=== PATIENT | male | born 1955 | race African-American/Black ===

== ENCOUNTER → 2017-05-01 13:35 | Outpatient (CLI) | payer OTHER, SELFPAY ==
[2017-05-01 13:38] LABS: Pathologist Comment May follow
[2017-05-01 14:03] LABS: RBC /Synovial Fluid 0.007 10^6/uL (0); Synovial Fld Mononuclear WBC % 69.3 %; Synovial Fld Polynuclear WBC # 0.119 10^3/ul; Synovial Fld Polynuclear WBC % 30.7 %
[2017-05-01 14:15] LABS: AUTO B FLUID DILUENT BKGD CT WBC <0.1 RBC <0.01 (W<.1,R<.01); CRYSTALS, BODY FLUID Other, see comment; Source- Body Fluid SYNOVIAL
[2017-05-01 14:16] LABS: Appearance /Synovial Fluid Sl hazy (CLEAR); Color / Synovial Fluid Yellow (Pale Yellow)
[2017-05-01 15:08] LABS: Lymph 23 %; Monocyte /Synovial Fluid 16 %; Neutrophil 12 % (0-25); Other Cell /Synovial Fluid 49 %
[2017-05-01 15:09] LABS: Source / Synovial Fluid LEFT KNEE
[2017-05-02 14:39] LABS: Pathologist Review Reviewed
== END ==
PROVIDERS: Visit Provider Internal Medicine Rheumatology
DX: M17.0 Bilateral primary osteoarthritis of knee (principal); M25.562 Pain in left knee; E11.9 Type 2 diabetes mellitus without complications; G47.33 Obstructive sleep apnea (adult) (pediatric); I71.02 Dissection of abdominal aorta; I50.9 Heart failure, unspecified; I27.20 Pulmonary hypertension, unspecified; N18.9 Chronic kidney disease, unspecified; I12.9 Hypertensive chronic kidney disease with stage 1 through stage 4 chronic kidney disease, or unspecified chronic kidney disease; Z86.69 Personal history of other diseases of the nervous system and sense organs; I83.009 Varicose veins of unspecified lower extremity with ulcer of unspecified site; I83.019 Varicose veins of right lower extremity with ulcer of unspecified site; E78.5 Hyperlipidemia, unspecified; J44.9 Chronic obstructive pulmonary disease, unspecified
CPT/HCPCS: 87070; 87075; 87205; 89050; 89051; 89060

== ENCOUNTER → 2017-05-08 08:53 | Outpatient (CLI) | payer OTHER, SELFPAY ==
[2017-05-08 09:32] VITALS: PULSE 83; PULSE 86; PULSE 87; PULSE 90; PULSE 91; PULSE 92; PULSE 96; PULSE 99; O2SAT 92; O2SAT 93; O2SAT 94
--- NOTE | 2017-05-08 14:40 | WT_ITS ---
PSN 6 Minute Walk Test - 6 Minute Walk Test 6 Minute Walk Test: 6 Minute Walk Test PSN:6-Minute Walk Test Start: 05/08/17 09: 26 Freq: Status: Active Protocol: RESP.6MINW Document 05/08/17 09:32 TOBI (Rec: 05/08/17 09:40 TOBI [id number]) 6 Minute Walk Test Date Performed 05/08/17 Time Performed 09:10 Height 5 ft 9 in Weight: 260 lb Weight in Pounds 260.[address]: Michael Daugherty Assistive device used: Crutches Pre-test Oxygen Delivery Method Room Air Pulse Ox (%) 93 Pulse Rate (60-100 beats/min) 83 Dyspnea Lilliana Scale (0-10) 0 Exertion Lillinaa Scale (6-20) 6 1st minute Oxygen Delivery Method Room Air Pulse Ox (%) 94 Pulse Rate (60-100 beats/min) 87 2nd minute Oxygen Delivery Method Room Air Pulse Ox (%) 94 Pulse Rate (60-100 beats/min) 90 3rd minute Oxygen Delivery Method Room Air Pulse Ox (%) 93 Pulse Rate (60-100 beats/min) 92 4th minute Oxygen Delivery Method Room Air Pulse Ox (%) 94 Pulse Rate (60-100 beats/min) 96 5th minute Oxygen Delivery Method Room Air Pulse Ox (%) 93 Pulse Rate (60-100 beats/min) 91 6th minute Oxygen Delivery Method Room Air Pulse Ox (%) 92 Pulse Rate (60-100 beats/min) 99 Dyspnea Lilliana Scale (0-10) 1 Exertion Lilliana Scale (6-20) 13 Post-test Oxygen Delivery Method Room Air Pulse Ox (%) 93 Pulse Rate (60-100 beats/min) 86 Full Laps Walked 4 Partial Lap, Number of Tiles Walked 74 Total Distance Walked (ft) 310 - Interpretation Interpretation: The patient ambulated 310 feet over the course of 6 minutes on room air with the use of crutches. Pretesting oxygen saturation was noted to be 93% on room air. With ambulation, the miryam oxygen saturation was 92%. There was no significant exertional oxygen desaturation noted. There was evidence of impaired walk distance. - Recommendations Recommendations: There is no indication for the use of supplemental oxygen at this time.
== END ==
PROVIDERS: Visit Provider Internal Medicine Critical Care Medicine
DX: J44.9 Chronic obstructive pulmonary disease, unspecified (principal); I27.20 Pulmonary hypertension, unspecified; G47.33 Obstructive sleep apnea (adult) (pediatric)
CPT/HCPCS: 94618

== ENCOUNTER → 2017-05-10 06:55 | Outpatient (CLI) | payer OTHER, SELFPAY ==
--- NOTE | 2017-05-10 13:51 | PFT ---
INTRODUCTION: The patient is a 62-year-old -Hung[place] male currently under the care of Dr. Daugherty that presents for pulmonary function testing secondary to a diagnosis of COPD. Respiratory therapy reports good patient effort reports no other concerns. Bronchodilators were used during testing. INTERPRETATION: Forced expiration spirometry demonstrates no evidence of a large airways obstructive ventilatory defect. There was no significant response to aerosolized bronchodilators, based upon strict ATS criteria. Spirograms are of good quality and plateau normally. The respiratory flow volume loop reveals decreased expiratory flow rates primarily at high lung volumes which can be seen in small airways obstruction. Body plethysmography was performed and reveals a decreased TLC to 4.38 L, 69% of predicted, indicative of a moderate restrictive ventilatory defect. Diffusing capacity by single breath CO is mildly reduced at 60% of predicted. When compared to previous pulmonary function studies dated April 2016, there has been little overall change. IMPRESSION: These pulmonary function studies demonstrate the presence of a moderate restrictive ventilatory defect with associated reduction in diffusing capacity, similar to previous PFTs. There is no evidence of an obstructive ventilatory impairment.
== END ==
PROVIDERS: Visit Provider Internal Medicine Critical Care Medicine
DX: J44.9 Chronic obstructive pulmonary disease, unspecified (principal); I27.20 Pulmonary hypertension, unspecified
CPT/HCPCS: 94060; 94726; 94729

== ENCOUNTER → 2017-06-26 15:55 | Outpatient (CLI) | payer OTHER, SELFPAY ==
[2017-06-26 20:51] LABS: RBC /Synovial Fluid 0.002 10^6/uL (0); Synovial Fld Mononuclear WBC % 48.6 %; Synovial Fld Polynuclear WBC # 0.132 10^3/ul; Synovial Fld Polynuclear WBC % 51.4 %
[2017-06-26 23:12] LABS: AUTO B FLUID DILUENT BKGD CT WBC <0.1 RBC <0.01 (W<.1,R<.01); Neutrophil 2 % (0-25)
[2017-06-26 23:14] LABS: Appearance /Synovial Fluid Hazy (CLEAR); Color / Synovial Fluid Yellow (Pale Yellow); Source / Synovial Fluid LEFT KNEE; Viscosity / Synovial Fluid Mod. Viscous (HIGH)
[2017-06-26 23:15] LABS: Body Fluid QC Type(s) BF3Q,BF4Q; Other Cell /Synovial Fluid 98 %
[2017-06-26 23:23] LABS: CRYSTALS, BODY FLUID Other, see comment; Source- Body Fluid SYNOVIAL
[2017-06-27 10:04] LABS: Pathologist Comment Reviewed; Pathologist Review Reviewed
== END ==
PROVIDERS: PCP Family Medicine; Visit Provider Internal Medicine Rheumatology
DX: M17.0 Bilateral primary osteoarthritis of knee (principal); M25.562 Pain in left knee; E11.9 Type 2 diabetes mellitus without complications; G47.33 Obstructive sleep apnea (adult) (pediatric); I71.02 Dissection of abdominal aorta; I50.9 Heart failure, unspecified; N18.9 Chronic kidney disease, unspecified; Z86.69 Personal history of other diseases of the nervous system and sense organs; I83.009 Varicose veins of unspecified lower extremity with ulcer of unspecified site; I83.019 Varicose veins of right lower extremity with ulcer of unspecified site; E78.5 Hyperlipidemia, unspecified; J44.9 Chronic obstructive pulmonary disease, unspecified; I12.9 Hypertensive chronic kidney disease with stage 1 through stage 4 chronic kidney disease, or unspecified chronic kidney disease
CPT/HCPCS: 87070; 87075; 87205; 89050; 89051; 89060

== ENCOUNTER → 2017-08-09 15:11 | Outpatient (CLI) | payer OTHER, SELFPAY ==
[2017-08-09 15:14] LABS: Pathologist Comment May follow
[2017-08-09 18:33] LABS: RBC /Synovial Fluid 0.012 10^6/uL (0); Synovial Fld Mononuclear WBC % 43.4 %; Synovial Fld Polynuclear WBC % 56.6 %
[2017-08-09 22:19] LABS: Neutrophil 34 % (0-25)
[2017-08-09 22:20] LABS: AUTO B FLUID DILUENT BKGD CT WBC <0.1 RBC <0.01 (W<.1,R<.01)
[2017-08-09 22:21] LABS: Appearance /Synovial Fluid Hazy (CLEAR); Color / Synovial Fluid Pink (Pale Yellow); Source / Synovial Fluid LT KNEE; Viscosity / Synovial Fluid Mod. Viscous (HIGH)
[2017-08-09 22:22] LABS: Body Fluid QC Type(s) BF1Q,BF2Q; Lymph 5 %; Monocyte /Synovial Fluid 49 %
[2017-08-09 22:23] LABS: Other Cell /Synovial Fluid 12 %
[2017-08-09 23:09] LABS: Source- Body Fluid SYNOVIAL
[2017-08-10 14:22] LABS: Pathologist Review Reviewed
== END ==
PROVIDERS: PCP Family Medicine; Visit Provider Internal Medicine Rheumatology
DX: M17.0 Bilateral primary osteoarthritis of knee (principal); M25.562 Pain in left knee; G47.33 Obstructive sleep apnea (adult) (pediatric); I71.02 Dissection of abdominal aorta; I27.20 Pulmonary hypertension, unspecified; Z86.69 Personal history of other diseases of the nervous system and sense organs; I83.009 Varicose veins of unspecified lower extremity with ulcer of unspecified site; I83.019 Varicose veins of right lower extremity with ulcer of unspecified site; E78.5 Hyperlipidemia, unspecified; J44.9 Chronic obstructive pulmonary disease, unspecified; E11.22 Type 2 diabetes mellitus with diabetic chronic kidney disease; I13.0 Hypertensive heart and chronic kidney disease with heart failure and stage 1 through stage 4 chronic kidney disease, or unspecified chronic kidney disease; N18.9 Chronic kidney disease, unspecified; I50.9 Heart failure, unspecified
CPT/HCPCS: 87070; 87075; 87205; 89050; 89051; 89060

== ENCOUNTER → 2017-08-19 10:49 | Outpatient (CLI) | payer OTHER, SELFPAY ==
--- NOTE | 2017-08-19 10:49 | DT_ITS ---
This patient was seen during an EMR downtime August 14, 2017 - August 21, 2017. This patient may have a combination of paper and electronic documentation or all paper documentation. All documentation is viewable within the e-chart portion of [facility] for each patient visit.
[2017-08-19 11:45] LABS: Hematocrit 38.9 % (40-54); Hemoglobin 12.2 g/dl (13.0-16.5); White Blood Count 4.8 K/mm3 (4.4-11.0)
[2017-08-19 11:46] LABS: Mean Corp Hgb Conc 31.4 g/gl (32-36); Mean Corpuscular Hgb 28.4 pg (27.0-32.0); Mean Corpuscular Volume 90.5 fL (80-94); Mean Platelet Vol. 9.5 fl (6.2-12.0); Platelet Count 225 K/mm3 (150-450); RBC Distribution Width CV 14.8 % (11.6-14.6); RBC Distribution Width SD 47.8 fl (35.1-43.9); Scan Indicated on CBC? Y/N NO
[2017-08-19 12:36] LABS: BUN 27 mg/dL (7-18); BUN/Creat Ratio 19.6 RATIO (10-20); Calcium,Total 8.6 mg/dL (8.5-10.1); Chloride 99 mmol/L (98-107); Creatinine, Serum 1.38 mg/dL (0.70-1.30); EST Glomerular Filtration Rate 55 mL/min (>60); Est Glom Filt Rate - Afr Amer 67 mL/min (>60); Glucose 114 mg/dL (74-106); Potassium 4.2 mmol/L (3.5-5.1); Sodium Level 138 mmol/L (136-145)
[2017-08-19 12:37] LABS: Anion Gap 6 (5-15)
== END ==
PROVIDERS: Nurse Practitioner Acute Care; PCP Family Medicine; Visit Provider Internal Medicine Critical Care Medicine
DX: R06.02 Shortness of breath (principal)
CPT/HCPCS: 36415; 80048; 85027

== ENCOUNTER → 2017-12-29 20:55 | Outpatient (CLI) | payer OTHER, SELFPAY ==
[2017-12-29 20:59] LABS: Pathologist Comment May follow
[2017-12-29 21:21] LABS: RBC /Synovial Fluid 0.006 10^6/uL (0); Synovial Fld Mononuclear WBC % 51.1 %; Synovial Fld Polynuclear WBC % 48.9 %
[2017-12-29 21:25] LABS: AUTO B FLUID DILUENT BKGD CT WBC <0.1 RBC <0.01 (W<.1,R<.01)
[2017-12-29 21:26] LABS: Appearance /Synovial Fluid Sl hazy (CLEAR); CRYSTALS, BODY FLUID See PATH REV; Color / Synovial Fluid Yellow (Pale Yellow); Source / Synovial Fluid LT KNEE; Source- Body Fluid SYNOVIAL
[2017-12-29 22:08] LABS: Lymph 34 %; Monocyte /Synovial Fluid 48 %; Neutrophil 18 % (0-25)
[2018-01-02 15:07] LABS: Pathologist Review Reviewed
== END ==
PROVIDERS: PCP Family Medicine; Referring Provider Internal Medicine Rheumatology; Visit Provider Internal Medicine Rheumatology
DX: M17.0 Bilateral primary osteoarthritis of knee (principal); M25.562 Pain in left knee
CPT/HCPCS: 87070; 87075; 87205; 89050; 89051; 89060

== ENCOUNTER → 2018-04-24 10:48 | Outpatient (CLI) | payer OTHER, SELFPAY ==
[2018-04-24 11:25] LABS: Anion Gap 7 (5-15); BUN 34 mg/dL (7-18); BUN/Creat Ratio 23.8 RATIO (10-20); Calcium,Total 8.8 mg/dL (8.5-10.1); Chloride 100 mmol/L (98-107); Creatinine, Serum 1.43 mg/dL (0.70-1.30); EST Glomerular Filtration Rate 53 mL/min (>60); Est Glom Filt Rate - Afr Amer 64 mL/min (>60); Glucose 141 mg/dL (74-106); Sodium Level 138 mmol/L (136-145)
== END ==
PROVIDERS: PCP Family Medicine; Visit Provider Internal Medicine Critical Care Medicine
DX: I27.20 Pulmonary hypertension, unspecified (principal)
CPT/HCPCS: 36415; 80048

== ENCOUNTER → 2018-04-27 12:34 | Outpatient (CLI) | payer OTHER, SELFPAY ==
[2018-04-24 09:51] VITALS: BMI 39.4
[2018-04-27 12:30] VITALS: PULSE 64; PULSE 83; PULSE 86; PULSE 87; PULSE 90; O2SAT 85; O2SAT 89; O2SAT 90; O2SAT 91; O2SAT 92
--- NOTE | 2018-04-27 14:30 | CPS ---
pt arrived on room air. sats were 85% placed him on 2l nc for walk. sats on 2l 89% so increased him to 3l nc and sats increased to 91%.
--- NOTE | 2018-04-30 07:21 | PCM.PSN.6M ---
PSN 6 Minute Walk Test - 6 Minute Walk Test 6 Minute Walk Test: 6 Minute Walk Test PSN:6-Minute Walk Test Start: 04/27/18 14:26 Freq: Status: Active Protocol: RESP.6MINW Document 04/27/18 12:30 EW (Rec: 04/27/18 14:32 EW [id number]) 6 Minute Walk Test Date Performed 04/27/18 Time Performed 12:30 Height 5 ft 9 in Weight: 263 lb Weight in Pounds 263.[address]: Michael Daugherty Assistive device used: Crutches Pre-test Oxygen Delivery Method Room Air Pulse Ox (%) 85 Pulse Rate (60-100 beats/min) 83 Dyspnea Lilliana Scale (0-10) 3 Exertion Lilliana Scale (6-20) 11 1st minute Oxygen Flow Rate (L/min) (L/min) 2 Oxygen Delivery Method Nasal Cannula Pulse Ox (%) 89 Pulse Rate (60-100 beats/min) 86 2nd minute Oxygen Flow Rate (L/min) (L/min) 3 Oxygen Delivery Method Nasal Cannula Pulse Ox (%) 89 3rd minute Oxygen Flow Rate (L/min) (L/min) 3 Oxygen Delivery Method Nasal Cannula Pulse Ox (%) 90 Pulse Rate (60-100 beats/min) 90 4th minute Oxygen Flow Rate (L/min) (L/min) 3 Oxygen Delivery Method Nasal Cannula Pulse Ox (%) 91 Pulse Rate (60-100 beats/min) 86 5th minute Oxygen Flow Rate (L/min) (L/min) 3 Oxygen Delivery Method Nasal Cannula Pulse Ox (%) 92 Pulse Rate (60-100 beats/min) 64 Number of Rests Taken 1 Reported Symptoms Increased Work of Breathing 6th minute Oxygen Flow Rate (L/min) (L/min) 3 Oxygen Delivery Method Nasal Cannula Pulse Ox (%) 90 Pulse Rate (60-100 beats/min) 86 Post-test Oxygen Flow Rate (L/min) (L/min) 3 Oxygen Delivery Method Nasal Cannula Pulse Ox (%) 92 Pulse Rate (60-100 beats/min) 87 Dyspnea Lilliana Scale (0-10) 3 Exertion Lilliana Scale (6-20) 16 Full Laps Walked 2 Partial Lap, Number of Tiles Walked 0 Total Distance Walked (ft) 118 04/27/18 14:30 Cardiopulmonary Services by Tavia Castro pt arrived on room air. sats were 85% placed him on 2l nc for walk. sats on 2l 89% so increased him to 3l nc and sats increased to 91%. Initialized on 04/27/18 14:30 - END OF NOTE - Interpretation Interpretation: The patient ambulated 118 feet over the course of 6 minutes beginning on supplemental oxygen without the use of assistive devices. Pretesting oxygen saturation on room air was noted to be 85%. The patient was subsequently placed on supplemental oxygen. He required 3 L/min to increase his oxygen saturation to 91%. With ambulation on 3 L/min, the miryam oxygen saturation was 89%. This testing indicates the presence of impaired walk distance coupled with significant resting and exertional oxygen need. - Recommendations Recommendations: 3 L/min of supplemental oxygen should be utilized both at rest and with exertion.
--- NOTE | 2018-04-30 07:25 | WT_ITS ---
PSN 6 Minute Walk Test - 6 Minute Walk Test 6 Minute Walk Test: 6 Minute Walk Test PSN:6-Minute Walk Test Start: 04/27/18 14:26 Freq: Status: Active Protocol: RESP.6MINW Document 04/27/18 12:30 EW (Rec: 04/27/18 14:32 EW [id number]) 6 Minute Walk Test Date Performed 04/27/18 Time Performed 12:30 Height 5 ft 9 in Weight: 263 lb Weight in Pounds 263.[address]: Michael Daugherty Assistive device used: Crutches Pre-test Oxygen Delivery Method Room Air Pulse Ox (%) 85 Pulse Rate (60-100 beats/min) 83 Dyspnea Lilliana Scale (0-10) 3 Exertion Lilliana Scale (6-20) 11 1st minute Oxygen Flow Rate (L/min) (L/min) 2 Oxygen Delivery Method Nasal Cannula Pulse Ox (%) 89 Pulse Rate (60-100 beats/min) 86 2nd minute Oxygen Flow Rate (L/min) (L/min) 3 Oxygen Delivery Method Nasal Cannula Pulse Ox (%) 89 3rd minute Oxygen Flow Rate (L/min) (L/min) 3 Oxygen Delivery Method Nasal Cannula Pulse Ox (%) 90 Pulse Rate (60-100 beats/min) 90 4th minute Oxygen Flow Rate (L/min) (L/min) 3 Oxygen Delivery Method Nasal Cannula Pulse Ox (%) 91 Pulse Rate (60-100 beats/min) 86 5th minute Oxygen Flow Rate (L/min) (L/min) 3 Oxygen Delivery Method Nasal Cannula Pulse Ox (%) 92 Pulse Rate (60-100 beats/min) 64 Number of Rests Taken 1 Reported Symptoms Increased Work of Breathing 6th minute Oxygen Flow Rate (L/min) (L/min) 3 Oxygen Delivery Method Nasal Cannula Pulse Ox (%) 90 Pulse Rate (60-100 beats/min) 86 Post-test Oxygen Flow Rate (L/min) (L/min) 3 Oxygen Delivery Method Nasal Cannula Pulse Ox (%) 92 Pulse Rate (60-100 beats/min) 87 Dyspnea Lilliana Scale (0-10) 3 Exertion Lilliana Scale (6-20) 16 Full Laps Walked 2 Partial Lap, Number of Tiles Walked 0 Total Distance Walked (ft) 118 04/27/18 14:30 Cardiopulmonary Services by Tavia Castro pt arrived on room air. sats were 85% placed him on 2l nc for walk. sats on 2l 89% so increased him to 3l nc and sats increased to 91%. Initialized on 04/27/18 14:30 - END OF NOTE - Interpretation Interpretation: The patient ambulated 118 feet over the course of 6 minutes beginning on s upplemental oxygen without the use of assistive devices. Pretesting oxygen saturation on room air was noted to be 85%. The patient was subsequently placed on supplemental oxygen. He required 3 L/min to increase his oxygen saturation to 91%. With ambulation on 3 L/min, the miryam oxygen saturation was 89%. This testing indicates the presence of impaired walk distance coupled with significant resting and exertional oxygen need. - Recommendations Recommendations: 3 L/min of supplemental oxygen should be utilized both at rest and with exertion.
== END ==
PROVIDERS: PCP Family Medicine; Referring Provider Internal Medicine Critical Care Medicine; Visit Provider Internal Medicine Critical Care Medicine
DX: I27.20 Pulmonary hypertension, unspecified (principal); I50.30 Unspecified diastolic (congestive) heart failure
CPT/HCPCS: 94618

== ENCOUNTER → 2018-06-12 14:31 | Outpatient (CLI) | payer OTHER, SELFPAY ==
[2018-05-30 10:43] VITALS: BMI 41.6
[2018-06-06 14:41] VITALS: BMI 41.6
--- NOTE | 2018-06-12 14:36 | ECHOCS_ITS ---
Reason For Study: DYSPNEA Procedure This was a 2D Doppler, Color Flow transthoracic echocardiogram. Contrast injection was performed. The exam was of poor technical quality due to pt unable to lay in LLD position- scanned supine at 45 degrees. Exam performed in department. Left Ventricle Normal LV size. Moderate concentric left ventricular hypertrophy. Left ventricular systolic function is normal. The estimated ejection fraction is 65 %. Stage 2 diastolic dysfunction. No regional wall motion abnormalities noted. Right Ventricle Normal RV size. Normal systolic function. Atria The left atrium is mildly enlarged. The right atrium is mildly enlarged. Mitral Valve There is mild mitral annular calcification. Tricuspid Valve Normal tricuspid valve. Mild (1+) tricuspid valve insufficiency. Pulmonary artery systolic pressure is 35 mmHg. Mild pulmonary hypertension. Aortic Valve The aortic valve is not well visualized. Mild focal aortic valve calcification. Pulmonic Valve Normal pulmonic valve. Great Vessels Mildly dilated aortic root. The pulmonary artery is normal size. Normal inferior vena cava. Pericardium/Pleural No pericardial effusion. Medication 20 gauge I.V. with prn adaptor inserted into right arm. Diluted definity 4ml given slow IV push to enhance endocardial definition. MMode/2D Measurements & Calculations LVIDd: 4.9 cm IVSd: 1.4 cm LVOT diam: 2.1 cm LVIDs: 3.5 cm LVPWd: 1.4 cm FS: 29.7 % LVOT area: 3.6 cm2 Ao root diam: 4.1 cm LAV(MOD-bp): 62.0 ml LVAd ap4: 35.1 cm2 LAV(MOD-bp) Indexed: 26.4 ml/m2 EDV(MOD-sp4): 114.4 ml LAV(MOD-sp2): 66.6 ml EDV(sp4-el): 118.8 ml LAV(MOD-sp4): 56.9 ml LVAs ap4: 17.8 cm2 ESV(MOD-sp4): 38.5 ml ESV(sp4-el): 37.5 ml EF(MOD-sp4): 66.3 % EF(sp4-el): 68.5 % SV(MOD-sp4): 75.8 ml SV(sp4-el): 81.3 ml LA A4 area: 20.8 cm2 LA dimension(2D): 4.3 cm RA A4 area: 24.5 cm2 Time Measurements MV dec time: 0.31 sec Doppler Measurements & Calculations MV E max jb: 100.2 cm/sec Lat Peak E' Jb: 5.9 cm/sec Med Peak E' Jb: 5.4 cm/sec MV A max jb: 115.7 cm/sec E/E' lat: 17.1 E/E' med: 18.7 MV E/A: 0.87 MV V2 max: 116.7 cm/sec Ao V2 max: 224.5 cm/sec LV V1 max: 128.8 cm/sec MV max P.4 mmHg Ao max P.2 mmHg LV V1 max P.6 mmHg MV V2 mean: 78.4 cm/sec Ao V2 mean: 159.6 cm/sec LV V1 mean P.6 mmHg MV mean P.7 mmHg Ao mean P.3 mmHg LV V1 mean: 90.4 cm/sec MV V2 VTI: 35.3 cm Ao V2 VTI: 44.6 cm LV V1 VTI: 26.9 cm MVA(VTI): 2.7 cm2 LACI(I,D): 2.2 cm2 LACI(V,D): 2.0 cm2 SV(LVOT): 96.1 ml PA V2 max: 109.8 cm/sec TR max jb: 275.4 cm/sec PA V2 mean: 50.7 cm/sec TR max P.0 mmHg PA V2 VTI: 16.7 cm MV P1/2t-pr_phl: 85.2 msec Interpretation Summary Normal LV size. Moderate concentric left ventricular hypertrophy. Left ventricular systolic function is normal. The estimated ejection fraction is 65 %. Stage 2 diastolic dysfunction. Mild (1+) tricuspid valve insufficiency. Mild pulmonary hypertension. Contrast injection was performed. Ordering Physician: Ric Riley Referring Physician: Alex Pedersen Performed By: Divine Ozuna, SIRISHA, RVT
== END ==
PROVIDERS: Family Provider Internal Medicine; PCP Internal Medicine; Referring Provider Internal Medicine Cardiovascular Disease; Visit Provider Internal Medicine Cardiovascular Disease
DX: I50.32 Chronic diastolic (congestive) heart failure (principal)
CPT/HCPCS: 93306; Q9957; A4216; C8929

== ENCOUNTER → 2018-08-02 10:46 | Outpatient (CLI) | payer OTHER, SELFPAY ==
[2018-07-04 14:35] VITALS: BMI 41.6
[2018-08-02 11:21] LABS: Absolute Lymphocyte Count 0.51 X10^3/ul (0.83-4.51); Absolute Neutrophil Count 5.7 X10^3/uL (2.0-7.7); Hematocrit 40.5 % (40-54); Hemoglobin 12.3 g/dl (13.0-16.5); Lymphocyte # 0.51 X10^3/ul (4.0); Lymphocyte % 8.1 % (19-41); Mean Corp Hgb Conc 30.4 g/gl (32-36); Mean Corpuscular Hgb 27.5 pg (27.0-32.0); Mean Corpuscular Volume 90.6 fL (80-94); Mean Platelet Vol. 9.5 fl (6.2-12.0); Monocyte# 0.14 X10^3/uL; Monocyte% 2.2 % (0-10); Neutrophil # 5.66 X10^3/uL (2.7-7.7); Neutrophil % 89.5 % (47-70); Platelet Count 221 K/mm3 (150-450); RBC Distribution Width CV 15.1 % (11.6-14.6); RBC Distribution Width SD 49.1 fl (35.1-43.9); Red Blood Count 4.47 M/mm3 (4.6-6.2); White Blood Count 6.3 K/mm3 (4.4-11.0)
[2018-08-02 11:22] LABS: Differential Indicated SCAN CRITERIA MET; POSITIVE COUNT NO; POSITIVE DIFFERENTIAL YES; POSITIVE MORPHOLOGY NO
[2018-08-02 11:33] LABS: Cholesterol 208 mg/dL (200); High Density Lipoprotein 56 mg/dL; Triglycerides 81 mg/dL; Very Low Density Lipoprotein 16 mg/dL (5-40)
[2018-08-02 11:41] LABS: Hemoglobin A1c 6.7 % (4.2-6.3)
[2018-08-02 14:24] LABS: Microalbumin,Random Urine 47.1 mg/L (NO RANGE EST.); Microalbumin:Creatinine Ratio 91.6 mg/g CRE (<30 mg/g CRE)
== END ==
PROVIDERS: Family Provider Internal Medicine; PCP Internal Medicine; Referring Provider Internal Medicine; Visit Provider Internal Medicine
DX: E11.9 Type 2 diabetes mellitus without complications (principal); E78.5 Hyperlipidemia, unspecified; D64.9 Anemia, unspecified; I10 Essential (primary) hypertension
CPT/HCPCS: 36415; 80061; 82043; 82570; 83036; 85025

== ENCOUNTER → 2018-10-23 09:48 | Outpatient (CLI) | payer OTHER, SELFPAY ==
[2018-10-08 14:07] VITALS: BMI 41.6
[2018-10-23 10:33] LABS: Hemoglobin A1c 6.8 % (4.2-6.3)
[2018-10-23 10:37] LABS: Anion Gap 6 (5-15); BUN 27 mg/dL (7-18); Chloride 102 mmol/L (98-107); EST Glomerular Filtration Rate 50 mL/min (>60); Est Glom Filt Rate - Afr Amer 61 mL/min (>60); Glucose 131 mg/dL (74-106); PSA,Total - Annual Screen 0.98 ng/mL (0.00-4.00); Potassium 4.3 mmol/L (3.5-5.1); Sodium Level 141 mmol/L (136-145); Thyroid Stim Hormone (TSH) 1.27 uIU/mL (0.358-3.74)
[2018-10-23 10:42] LABS: Vitamin D,25 Hydroxy 9.6 ng/mL (29.95-100.01)
[2018-10-24 11:09] LABS: Microalbumin:Creatinine Ratio 138.1 mg/g CRE (<30 mg/g CRE)
[2018-10-26 08:08] LABS: Testosterone, Free 2.48 ng/dL (5.00-21.00)
[2018-10-26 12:36] LABS: Testosterone, % Free 2.53 % (1.50-4.20); Testosterone, Total 98 ng/dL (264-916)
== END ==
PROVIDERS: Family Provider Internal Medicine; PCP Internal Medicine; Referring Provider Internal Medicine; Visit Provider Internal Medicine
DX: E55.9 Vitamin D deficiency, unspecified (principal); E34.9 Endocrine disorder, unspecified; N40.0 Benign prostatic hyperplasia without lower urinary tract symptoms; E11.9 Type 2 diabetes mellitus without complications; Z13.29 Encounter for screening for other suspected endocrine disorder
CPT/HCPCS: 36415; 80048; 82043; 82306; 82570; 83036; 84153; 84402; 84403; 84443; G0103

== ENCOUNTER → 2018-11-08 14:57 | Outpatient (CLI) | payer OTHER, SELFPAY ==
[2018-11-08 13:50] VITALS: BMI 41.6
[2018-11-08 15:54] LABS: Absolute Neutrophil Count 8.3 X10^3/uL (2.0-7.7); Basophil# 0.02 X10^3/uL; Basophil% 0.2 % (0-1); Hematocrit 34.8 % (40-54); Hemoglobin 10.7 g/dL (13.0-16.5); Lymphocyte % 5.9 % (19-41); Mean Corp Hgb Conc 30.7 g/dL (32-36); Mean Corpuscular Hgb 28.3 pg (27.0-32.0); Mean Corpuscular Volume 92.1 fL (80-94); Mean Platelet Vol. 9.8 fl (6.2-12.0); Monocyte# 0.98 X10^3/uL; Monocyte% 9.7 % (0-10); NRBC Flagged by Analyzer 0 % (0-5); Neutrophil # 8.31 X10^3/uL (2.7-7.7); Neutrophil % 81.9 % (47-70); POSITIVE DIFFERENTIAL YES; Platelet Count 219 K/mm3 (150-450); RBC Distribution Width CV 14.5 % (11.6-14.6); RBC Distribution Width SD 49.2 fl (35.1-43.9); Red Blood Count 3.78 M/mm3 (4.6-6.2); White Blood Count 10.1 K/mm3 (4.4-11.0)
[2018-11-08 16:00] LABS: Differential Indicated SCAN CRITERIA MET
[2018-11-08 16:04] LABS: Anion Gap 5 (5-15); BUN 35 mg/dL (7-18); BUN/Creat Ratio 23.2 RATIO (10-20); Calcium,Total 9.2 mg/dL (8.5-10.1); Chloride 100 mmol/L (98-107); Creatinine, Serum 1.51 mg/dL (0.70-1.30); EST Glomerular Filtration Rate 50 mL/min (>60); Est Glom Filt Rate - Afr Amer 60 mL/min (>60); Glucose 152 mg/dL (74-106); Potassium 4.8 mmol/L (3.5-5.1); Sodium Level 138 mmol/L (136-145)
[2018-11-08 16:14] LABS: BNP,B-Type NATRIURETIC PEPTIDE 57.2 pg/mL (0-100)
[2018-11-08 16:29] LABS: Differential Comment SCANNED
== END ==
PROVIDERS: Family Provider Internal Medicine; PCP Internal Medicine; Referring Provider Internal Medicine; Visit Provider Internal Medicine
DX: R06.02 Shortness of breath (principal); I95.9 Hypotension, unspecified
CPT/HCPCS: 36415; 80048; 83880; 85025

== ENCOUNTER → 2018-11-08 15:49 | Outpatient (CLI) | payer OTHER, SELFPAY ==
[2018-11-08 13:50] VITALS: BMI 41.6
[2018-11-08 16:05] VITALS: BP 152/82; PULSE 80; RESP 22; TEMP 36.6; O2SAT 91; BMI 45.6
[2018-11-08] MEDS: Furosemide 40 MG/4 ML Vial IV (16:23)
== END ==
PROVIDERS: Family Provider Internal Medicine; PCP Internal Medicine; Visit Provider Internal Medicine
DX: I50.9 Heart failure, unspecified (principal); R06.02 Shortness of breath
CPT/HCPCS: 96374; A4216; J1940

== ENCOUNTER 2018-11-08 20:18 | Inpatient (IN) | payer OTHER, SELFPAY ==
[2018-11-08 16:05] VITALS: BMI 45.6
[2018-11-08 20:20] VITALS: BP 147/81; PULSE 81; RESP 20; TEMP 36.6; O2SAT 91; BMI 39.9
--- NOTE | 2018-11-08 20:38 | CT_ITS ---
STUDY: CTA CHEST REASON FOR EXAM: Male, 63 years old. Shortness of breath and hypoxia. Known thoracic aortic aneurysm RADIATION DOSAGE (If Supplied By Facility): CTDIvol = ( 22.17 ) mGy, DLP = ( 552.91 ) mGycm TECHNIQUE: The examination was performed with the intravenous administration of 100ML IV Isovue 370. Post-processing of the angiographic images was performed, with multiplanar reformation and 3D reconstruction. Individualized dose optimization techniques were used for this CT. COMPARISON: 09/20/2015 FINDINGS: Normal enhancement of the main pulmonary artery and right and left pulmonary arteries. Normal enhancement of the bilateral peripheral pulmonary arteries. There is no demonstrated pulmonary embolism. Unchanged descending thoracic aortic aneurysm and dissection with only small opacified lumen. Stable since 2015. Stable mild cardiomegaly Stable small mediastinal lymph nodes Normal hilar regions. Normal visualized trachea and bronchi. The lungs are well expanded. Patchy infiltrate seen in the upper lobes suggesting infection versus edema. Mild diffuse pulmonary vascular congestion Normal pleura. Normal chest wall structures. There are degenerative changes of thoracic spine. Normal visualized upper abdomen. CT/CTA Chest W/WO Contrast IMPRESSION: No evidence of pulmonary embolism. 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 Stable dating back to 2015. Patchy airspace disease/infiltrate in the upper lobes. Could represent infection or edema. Stable cardiomegaly Electronically Signed: Andrew Alejo DO at 21:51 EDT Tel , Service support ,
--- NOTE | 2018-11-08 22:10 | ED.DCSUM_ITS ---
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 Ric Riley. He denies history of PE or DVT. He does have history of borderline diabetes and hypertension. He also has history of pulmonary hypertension, obstructive sleep apnea and right-sided heart failure. He denies fever, chills or night sweats. He denies rhinorrhea, earache or sore throat. He denies cough. He does report shortness of breath at rest and significant shortness of breath with minimal activity. He is on continuous oxygen and states he normally needs 1.5 L. He is presently on 5 L by nasal cannula with a saturation of 88%. Prior similar symptoms: No Recent Illness/Hospitalization: No - Past Medical History (1) Chronic diastolic (congestive) heart failure Status: Chronic (2) Essential (primary) hypertension Status: Chronic (3) Hyperlipidemia Status: Chronic (4) ADELAIDE (obstructive sleep apnea) Status: Chronic (5) Osteoarthritis Status: Chronic (6) Secondary pulmonary arterial hypertension Status: Chronic (7) Stage 2 moderate COPD by GOLD classification Status: Chronic (8) Type 2 diabetes mellitus Status: Chronic Past Medical History - Allergies and Home Meds Allergies/Adverse Reactions: Allergies lisinopril Allergy (Severe, Verified 10/08/18 14:06) Angioedema latanoprost [From Xalatan] Adverse Reaction (Unknown, Verified 11/08/18 20:25) Other precipitation in eyes Sulfa (Sulfonamide Antibiotics) Adverse Reaction (Verified 10/08/18 14:06) Other chapstick Allergy (Uncoded 11/08/18 20:25) swelling Primary Care Physician: Alex Pedersen MD [Primary Care Provider] - Prior records reviewed: Yes Surgical History: no surgical history Lives: Spouse/ Significant Other Smoking Status: Former smoker Alcohol: None Drugs: None - Family History Maternal Family History: Family History (Last Reviewed 07/29/19 @ 14:06 by Laine Jeornimo) Father Cancer Mother Asthma Family History: Reports: No pertinent history Paternal Family History: Family History (Last Reviewed 10/08/18 @ 14:06 by Laine Jeronimo) Father Cancer Mother Asthma Family History: Reports: No pertinent history Physical Exam Vital Signs/Narrative: Vital Signs Temp Pulse Resp BP Pulse Ox 11/08/18 20:20 97.9 F 81 20 H 147/81 H 91 Inital Vital Signs reviewed: Yes General: Well nourished, Well developed, Obese, Acute Distress Head: Normocephalic, Atraumatic Eyes: Perrl, EOMI. Negative for: Pale conjunctiva, Scleral icterus ENT: Moist mucous membranes, No rhinorrhea, TM's clear Neck: Supple, Nontender, No lymphadenopathy, No JVD, - - Voice is hoarse. There is no stridor. Cardiovascular: Regular rate, Regular rhythm, No murmurs, Normal S1, Normal S2, - - Tones are distant Respiratory: CTA bilaterally, Decreased Air Movement, - - Is breathing much more rapidly than 20 times. On my examination his respiratory rate was 26.. Negative for: No distress Abdomen: Soft, Nontender, Nondistended, Normal bowel sounds Rectal: Deferred Back: Nontender Extremities: Nontender, Edema Skin: Normal color, No rash, No Trauma. Negative for: Cyanosis, Diaphoresis, Jaundice Neurological: Alert, Oriented x3, Cranial nerves II-XII grossly intact, Normal Strength, Normal Sensation Psychological: Normal affect, Normal Mood Diagnostic/Tx/Re-eval Impressions Chest CTA 11/08/18 20:38 IMPRESSION: No evidence of pulmonary embolism. 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 Stable dating back to 2016. Patchy airspace disease/infiltrate in the upper lobes. Could represent infection or edema. Stable cardiomegaly Electronically Signed: Andrew Alejo DO at 21:51 EDT Tel , Service support , 11/08/18 20:38 CTA Chest W/WO Contrast [CT] Stat Blood gas reveals pH 7.26, PCO2 of 73.5, PaO2 of 63 with a base excess of +6 and bicarb 33.4. O2 sat is 87%. He is present on 4 L. Hospitalist was paged for admission. BiPAP was ordered. - Medical Decision Making BNP was 60. With abrupt onset of shortness of breath with hypotension concern for pulmonary embolus. Patient's creatinine obtained earlier today through his primary care physician's office was 1.5. He received a fluid bolus prior to CTA. CTA revealed bilateral upper lobe glass ground appearance indicative of infiltrate versus CHF. Since BNP is 60 CHF is ruled out. Will treat with IV antibiotics. He was administered Rocephin and azithromycin because of concern for tendon issues with quinolones. Since he is not tachycardic and white count is not elevated and he does not have a fever he does not meet criteria for sepsis and reason why blood cultures and lactate was not obtained. Vision has acute respiratory failure with hypercapnia and hypoxia BiPAP was ordered. Hospitalist was paged. Admit to PCU stepdown versus ICU. He informed that he has an appointment to see Dr. Daugherty tomorrow November 09. - Critical Care Time Critical care time (excluding procedures): 30-74 minutes - 33 minutes, Discussing w/Patient &/or Family/Grocery Checker, Discussing w/Consultants, Arranging Admission or Transfer ED Disposition - Plan for ED Patient: Disposition: Home or Assisted Living Diagnosis: Acute respiratory failure with hypoxia and hypercapnia, Bilateral pulmonary infiltrates on CXR, Stage 3 chronic kidney disease Referrals: Alex Pedersen MD [Primary Care Provider] -
[2018-11-08] MEDS: Ceftriaxone 1 GM/50 ML BAG IV (22:22)
[2018-11-08 22:40] LABS: Allen Test POS; Base Excess 7 mmol/L (-2 to +2); Bicarbonate 33.8 mmol/L (22-26); Blood Gas Specimen Type ART; O2 Delivery Device Nasal Can; PO2 61 mmHG (75-100); SITE L Radial; SO2 87 % (95-99); Time Given 2225; Total Carbon Dioxide 36 mmol/L; pCO2 71.7 mmHg (35-45); pH 7.28 (7.35-7.45)
--- NOTE | 2018-11-08 22:42 | HP.PCM_ITS ---
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: without intermediate use Diabetes mellitus complication status: with other specified complication Qualified Code(s): E11.69 - Type 2 diabetes mellitus with other specified complication (6) Chronic diastolic (congestive) heart failure Status: Chronic (7) Hyperlipidemia Status: Chronic Qualifiers: Hyperlipidemia type: unspecified Qualified Code(s): E78.5 - Hyperlipidemia, unspecified (8) Essential (primary) hypertension Status: Chronic (9) Secondary pulmonary arterial hypertension Status: Chronic (10) Stage 2 moderate COPD by GOLD classification Status: Chronic (11) ADELAIDE (obstructive sleep apnea) Status: Chronic (12) Morbid obesity Status: Chronic History of Present Illness Date of Admission: 11/08/18 Chief Complaint: Dyspnea The patient is a 63 y/o M w/ PMHx: Morbid Obesity, Former Tobacco use, Diabetes mellitus type II, ADELAIDE, HTN, HLD, CKD stage III, Known stable Chronic AAA, PVD, Chronic normocytic anemia, Hx Guillain [place] Syndrome, Chronic COPD w/ Chronic Chronic Hypoxic Respiratory Failure, Chronic Diastolic CHF who presents to the [facility] ED on 11/08/18 with history of suddenly progressively worsening dyspnea starting this past Monday with no specific cough although PCP note does note dry cough as well as postnasal drip with no specific fevers or chills, noted to be worse with any exertional effort. Patient notes general malaise and fatigue and has had low blood pressures with need for medication adjustments. Did discuss with and patient right lower extremity chronic wound care and he notes that last evaluation was by physician approximately 1 week prior and that dressing was due to be changed on day of ED presentation. Work-up in the ED included T 97.9, heart rate 81, BP 147/81, respiratory rate 20, 91% on 4 L nasal cannula, ABG with pH 7.28, bicarb 33.8, base excess 7, O2 saturation 87, PCO2 71.7, PO2 61 on 4 L nasal cannula, CBC with WBC 10.1, hemoglobin 10.7, platelet 219 with left shift, BMP with carbon dioxide 33, BUN/creatinine 35/1.51, glucose 152, BNP 60, CTPA with no evidence of pulmonary embolism with a stable radha cending thoracic aortic aneurysm dissection with only a small opacified lumen noted to have been stable since 2016, patchy airspace disease and infiltrate in the upper lobes, stable cardiomegaly. In the ED patient ministered normal saline, Rocephin, azithromycin. Past Medical History Past Medical History (Chronic Problems): Chronic Problems (Last Reviewed 10/08/18 @ 14:06 by Laine Jeronimo) Stage 3 chronic kidney disease (Chronic) Morbid obesity (Chronic) Lower extremity weakness (Chronic) Type 2 diabetes mellitus (Chronic) Osteoarthritis (Chronic) Chronic diastolic (congestive) heart failure (Chronic) Hyperlipidemia (Chronic) Essential (primary) hypertension (Chronic) Secondary pulmonary arterial hypertension (Chronic) Stage 2 moderate COPD by GOLD classification (Chronic) Shortness of breath (Chronic) ADELAIDE (obstructive sleep apnea) (Chronic) Medical History: Medical History (Last Reviewed 10/08/18 @ 14:06 by Laine Jeronimo) Ulcer of right lower extremity (Chronic) L97.919 Chronic diastolic (congestive) heart failure (Chronic) I50.32 Hyperlipidemia (Chronic) E78.5 Essential (primary) hypertension (Chronic) I10 Secondary pulmonary arterial hypertension (Chronic) I27.21 Stage 2 moderate COPD by GOLD classification (Chronic) J44.9 Shortness of breath (Chronic) R06.02 ADELAIDE (obstructive sleep apnea) (Chronic) G47.33 Chronic kidney disease, stage 3 N18.3 Chronic venous insufficiency I87.2 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 Normocytic anemia D64.9 Obesity E66.9 Type 2 diabetes mellitus E11.9 Chronic cutaneous venous stasis ulcer (Resolved) I83.009 RLE Extremity Tobacco use Z72.0 Chronic venous stasis dermatitis (Inactive) I83.10 Allergies lisinopril Allergy (Severe, Verified 10/08/18 14:06) Angioedema latanoprost [From Xalatan] Adverse Reaction (Unknown, Verified 11/08/18 20:25) Other precipitation in eyes Sulfa (Sulfonamide Antibiotics) Adverse Reaction (Verified 10/08/18 14:06) Other chapstick Allergy (Uncoded 11/08/18 20:25) swelling Home Medications: Ambulatory Orders Medication Instructions Recorded hydrALAZINE [Apresoline] 50 mg PO TID #90 tab 09/20/15 tramadol 50 mg tablet 50 mg PO TID PRN tab 10/24/17 brimonidine 0.2 % eye drops 1 drp OPHTHALMIC BID ml 05/04/18 dorzolamide 2 %-timolol 0.5 % (PF) 1 drp OPHTHALMIC BID 05/04/18 eye drops ipratropium-albuterol 0.5 mg-3 3 ml INHALATION Q6H PRN ml 05/04/18 mg(2.5 mg base)/3 mL nebulization soln losartan 100 mg tablet 100 mg PO DAILY 05/04/18 omeprazole 20 mg capsule,delayed 20 mg PO DAILY 05/04/18 release labetalol 200 mg tablet 200 mg PO TID tab 05/30/18 tamsulosin 0.4 mg capsule 0.4 mg PO DAILY 05/30/18 furosemide 20 mg tablet 20 mg PO DAILY #30 tab 06/06/18 furosemide 40 mg tablet 40 mg PO BID #180 tab 07/04/18 aspirin 325 mg tablet 325 mg PO DAILY 09/06/18 latanoprost 0.005 % eye drops 1 drp OPHTHALMIC QPM 09/06/18 fluticasone fur. 100 mcg-umeclid 1 inh INHALATION DAILY #60 ea 11/08/18 62.5 mcg-vilant 25 mcg inhalat.powder sitagliptin 50 mg tablet 50 mg PO DAILY #30 tab 11/08/18 Surgical History: no surgical history Psychiatric History: No pertinent psych hx Lives: Spouse/ Significant Other Smoking Status: Former smoker Alcohol: None Drugs: None - *Family History Maternal Family History: Family History (Last Reviewed 10/08/18 @ 14:06 by Laine Jeronimo) Father Cancer Mother Asthma History Items: Asthma Paternal Family History: Family History (Last Reviewed 10/08/18 @ 14:06 by Laine Jeronimo) Father Cancer Mother Asthma History Items: Cancer Review of Systems Constitutional: Reports: Malaise, Weakness, Fatigue. Denies: Chills, Fever, Weight Change HEENT: Reports: Post Nasal Drip - Noted per PCP recently at visit.. Denies: Head Aches, Sinus Congestion, Sinus Drainage Cardiovascular: Denies: Chest Pain, Palpitations Respiratory: Reports: Cough - Noted per PCP at recent visit., Shortness of Lilian th, Shortness of breath at rest, Shortness of breath upon exertion. Denies: Sputum production Gastrointestinal: Denies: Abdominal Pain, Nausea, Vomiting Genitourinary: Denies: Dysuria Musculoskeletal: Denies: Joint Pain, Joint Tenderness Skin: Reports: Skin Changes, Wounds. Denies: Rash Neurological: Denies: Numbness, Tingling, Focal weakness Psychiatric: Denies: Anxiety, Depression, Homicidal Ideations, Suicidal Ideations Hematologic/ Lymphatic: Reports: Anemia. Denies: Easy Bruising, Easy Bleeding VTE Information - Inpt Only VTE Present on Admission: No VTE Mechan Device Prophylaxis: SCD's VTE Pharm Prophylaxis ordered?: Yes Patient Problems: Active and Suspected Problems (Last Reviewed 10/08/18 @ 14:06 by Laine Jeronimo) Acute respiratory failure with hypoxia and hypercapnia (Acute) Bilateral pulmonary infiltrates on CXR (Acute) Subjective: Seated upright in the bed, fatigued appearance, BiPAP in place, mildly lethargic, ill-appearing. Objective: Physical Examination: General: awakens to discussions, intermittently alert, lethargic but oriented x 3, remains cooperative, seated upright in the ED bed, BiPAP in place, respiratory distress has lessened but ill-appearing. Skin: normal color, turgor, no icterus, cyanosis except notable right lower extremity suspected infected chronic venous stasis ulcer, foul-smelling, yellow and green discharge. HEENT: AT/NC, EOMI, PERRLA, only dry MM, no carotid bruits, no marked JVD noted however difficult assessment with thickened neck/large habitus with concurrently BiPAP in place. Lungs: Diminished breath sounds, greater bilateral bases, mildly coarse, rhonchorous, BiPAP in place, no wheezing, improved appearance since initial presentation, less in respiratory rate, lessened accessory muscle usage. Heart: Regular rate and rhythm; no gallop, rub audible. Abdomen: soft, morbidly obese, NTTP, ND, normal BS, no HSM;, habitus makes examination difficult. Extremities: no cyanosis, clubbing, BL LE ankle to distal cross edema, although lessened right lower extremity given recent dressing, removed, see skin. Neurological: awakens to discussions, intermittently alert, lethargic but oriented x 3, cognitive function improving but suspect not baseline intact; pupils equally reactive to light and accomodation; cranial nerves II-XII grossly normal, moving all 4 extremities, no focal deficits, strength severely globally decreased secondary to acute presentation. Psychiatric: affect appears fatigued, ill-appearing, no acute evidence of depressive or anxiety feelings. - Physical Exam Vital Signs Temp Pulse Resp BP Pulse Ox 97.9 F 81 20 H 147/81 H 91 11/08/18 20:20 11/08/18 20:20 11/08/18 20:20 11/08/18 20:20 11/08/18 20:20 Oxygen Flow Rate (L/min) 4 Oxygen Delivery Method Nasal Cannula Weight: 270 lb Body Mass Index (BMI) 39.9 Intake and Output for Last 24 Hours 11/06/18 11/07/18 11/08/18 23:59 23:59 23:59 Intake Total 0 / 0 Balance 0 / 0 Laboratory Tests Past 24 Hrs 11/08/18 22:31 Specimen Type ART Sample Site L Radial pH 7.28 L Bicarbonate Actual 33.8 H POC Total CO2 36 Base Excess 7 H O2 Saturation 87 L ABG pCO2 71.7 H* ABG pO2 61 L Frederick Test POS O2 Delivery Device Nasal Can Liter Flow 4.0 Blood Gas Notified Whom ED MD Blood Gas Notified Time 5 Assessment/Plan All Active Problems (Last Reviewed 10/08/18 @ 14:06 by Laine Jeronimo) Acute respiratory failure with hypoxia and hypercapnia (Acute) Bilateral pulmonary infiltrates on CXR (Acute) Ulcer of right lower extremity (Acute) Chronic cutaneous venous stasis ulcer (Resolved) The patient is a 63 y/o M w/ PMHx: Morbid Obesity, Former Tobacco use, Diabetes mellitus type II, ADELAIDE, HTN, HLD, CKD stage III, PVD, Chronic normocytic anemia, Hx Guillain [place] Syndrome, Chronic COPD w/ Chronic Chronic Hypoxic Respiratory Failure, Known stable Chronic AAA, Chronic Diastolic CHF who presents to the [facility] ED on 11/08/18 with history of suddenly progressively worsening dyspnea starting this past Monday with no specific cough although PCP note does note dry cough as well as postnasal drip with no specific fevers or chills, noted to be worse with any exertional effort. 1. Acute Hypoxic and Hypercarbic Respiratory Failure secondary to Community Acquired Pneumonia, complicated by underlying Chronic COPD: Work-up in the ED included T 97.9, heart rate 81, BP 147/81, respiratory rate 20, 91% on 4 L nasal cannula, ABG with pH 7.28, bicarb 33.8, base excess 7, O2 saturation 87, PCO2 71.7, PO2 61 on 4 L nasal cannula, CBC with WBC 10.1, hemoglobin 10.7, platelet 219 with left shift, BMP with carbon dioxide 33, BUN/creatinine 35/1.51, glucose 152 CTPA with no evidence of pulmonary embolism with a stable descending thoracic aortic aneurysm dissection with only a small opacified lumen noted to have been stable since 2016, patchy airspace disease and infiltrate in the upper lobes, stable cardiomegaly. 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 Bld cx x 2 obtained in the ED. 2. Concern for Acute on Chronic RLE Infected Stasis Wound: Per discussion with patient and spouse last evaluation per physician approximately 1 week prior, last dressing change 3 days prior, foul older and notable yellow-green discharge. Broadened ABX as noted above even these findings currently, will maintain on IV Vanc and Zosyn with requested Wound Cx, Wound MRSA PCR, plan repeat CBC in AM, continue affected extremity elevation above heart when seated and in bed, Wound RN consulted. 3. Hypertension: Continue home regimen including Lasix, hydralazine, labetalol, losartan with hold parameters, PRN hydralazine. 4. Hyperlipidemia: Not on statin therapy per current list, awaiting update. 5. Chronic Diastolic CHF: No overt evidence of overload, outpatient BMP 57.2, will maintain on aspirin, Lasix, hydralazine, labetalol, losartan with hold parameters given patient reported episodes of hypotension. MIS wraps. 6. Chronic normocytic anemia: Admission hemoglobin 10.7, prior noted 10-12, stable, trend. 7. Chronic Kidney Disease Stage III: Admission BUN/Cr 35/1.51, baseline renal function 1.4-1.5, repeat BMP in AM. 8. Morbid Obesity: Weight loss and lifestyle changes encouraged, nutrition consulted. 9. Diabetes mellitus type II: Hold oral home regimen, ADA diet, accu checks w/ ISS. 10. AAA, History of: No surgical intervention, stable per report. 11. ADELAIDE: BIPAP utilization as noted #1. 12. GERD: PPI. 13. DVT Prophylaxis: SCDs, lovenox. Code Visit Inpatient E&M: 95270 Init Hosp L3
[2018-11-08 22:45] VITALS: PULSE 72; RESP 12; RESP 25; O2SAT 92
[2018-11-08 23:10] VITALS: PULSE 79; O2SAT 91
[2018-11-08 23:54] VITALS: PULSE 76; RESP 12; RESP 24; O2SAT 97
[2018-11-09] VITALS (40 sets, daily range): BP systolic 99–170; BP diastolic 56–98; PULSE 72–107; RESP 12–30; TEMP 36.4–37.7; O2SAT 88–98; BMI 44.8
--- NOTE | 2018-11-09 00:30 | NURSING ---
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
[2018-11-09] MEDS: 0.9% Normal Saline 1,000 ML 125 ML IV (01:09)
[2018-11-09 01:39] LABS: Magnesium 2.1 mg/dL (1.6-2.6)
--- NOTE | 2018-11-09 01:48 | PCM.RX.CS ---
Consult Pharmacy has been consulted to manage selected antiobiotic: Vancomycin Type of Consult: New start Suspected Infection: Pneumonia Microbiology: Microbiology 11/09/18 00:50 Urine, Clean Catch Streptococcus pneumoniae Antigen (M - Final 11/09/18 00:50 Urine, Clean Catch Legionella Antigen - Final Weight used for dosin.7 kg Estimated Creatinine Clearance: 68 Goal Trough: 15-20 mcg/mL Pharmacy Plan for Drug Dosing: Pharmacy Service will continue to monitor and adjust dosing as required. Medications Vancomycin HCl 2,000 mg/ (Sodium Chloride) 540 mls @ 250 mls/hr IV X1 ONE Stop: 11/09/18 02:39 Last Admin: 11/09/18 01:08 Dose: 250 mls/hr Documented by: Vancomycin HCl (Vancomycin) 1,000 mg in 200 mls @ 200 mls/hr IV Q12H AMBROSE Follow-Up Labs: Trough Vancomycin Labs to be done on [date and time ordered]: 11/10 @ 1230
[2018-11-09 03:01] LABS: Probe Check PASS; Staph aureus DNA By PCR POSITIVE (Negative)
[2018-11-09 03:02] LABS: M R Staph aureus DNA By PCR POSITIVE (Negative); Specimen Processing Control PASS
--- NOTE | 2018-11-09 04:56 | CPS ---
PCO2 critical value read to Dr. Valladares in ED
--- NOTE | 2018-11-09 05:31 | CPS ---
critical results read back to dr fisher
[2018-11-09] MEDS: Labetalol 200 MG Tablet PO ×3 (05:53→20:56)
[2018-11-09] MEDS: hydrALAZINE 50 MG Tablet PO ×3 (05:53→20:55)
--- NOTE | 2018-11-09 05:55 | RAD_ITS ---
STUDY: X-RAY CHEST REASON FOR EXAM: Male, 63 years old. Dyspnea/shortness of breath. TECHNIQUE: Single AP portable view of the chest. COMPARISON: Comparison is made with prior examination dated September 20, 2015. FINDINGS: EKG electrodes are seen. There is evidence of vascular congestion and CHF. There is no demonstrated pleural abnormality. There is mild cardiac enlargement. Normal mediastinum and ekta. Normal visualized pulmonary arteries. There is atherosclerotic tortuosity and ectasia of the aortic arch and descending thoracic aorta. There are diffuse degenerative changes of the visualized thoracic spine. There is degenerative osteoarthritis of the bilateral shoulders. There is no demonstrated abnormality of the visualized soft tissue structures of the upper abdomen. RAD/Chest 1 View (Portable) IMPRESSION: Cardiomegaly and CHF. Electronically Signed: Michael Gaytan, at 8:53 EDT , Service support ,
[2018-11-09] MEDS: Dorzolamide HCL/Timolol 10 ml Bottle 1 DRP OPHTHALMIC ×2 (06:07→20:54)
[2018-11-09] MEDS: BRIMONIDINE 0.2% 5ML BOTTLE 1 DRP OPHTHALMIC ×2 (06:14→21:04)
[2018-11-09 06:18] LABS: Absolute Lymphocyte Count 0.65 X10^3/uL (0.83-4.51); Absolute Neutrophil Count 6.6 X10^3/uL (2.0-7.7); Basophil# 0.02 X10^3/uL; Basophil% 0.2 % (0-1); Eosinophil# 0.17 X10^3/uL; Hematocrit 32.5 % (40-54); Hemoglobin 9.9 g/dL (13.0-16.5); Lymphocyte # 0.65 X10^3/ul (4.0); Lymphocyte % 7.8 % (19-41); Mean Corp Hgb Conc 30.5 g/dL (32-36); Mean Corpuscular Hgb 28.4 pg (27.0-32.0); Mean Corpuscular Volume 93.1 fL (80-94); Mean Platelet Vol. 9.4 fl (6.2-12.0); Monocyte# 0.91 X10^3/uL; Monocyte% 10.9 % (0-10); NRBC Flagged by Analyzer 0 % (0-5); Neutrophil # 6.59 X10^3/uL (2.7-7.7); Neutrophil % 78.9 % (47-70); Platelet Count 212 K/mm3 (150-450); RBC Distribution Width CV 14.6 % (11.6-14.6); RBC Distribution Width SD 50.1 fl (35.1-43.9); Red Blood Count 3.49 M/mm3 (4.6-6.2); White Blood Count 8.4 K/mm3 (4.4-11.0)
--- NOTE | 2018-11-09 06:28 | CON.PCM_ITS ---
Reason for Consult Date of Consultation: 11/09/18 Reason for Consultation: Respiratory failure History of Present Illness: The patient is a 63-year-old male, with a history as outlined below, who presented to the emergency department on November 08 with progressive dyspnea over the course of the last week. The patient has a known history of stage II COPD, obstructive sleep apnea, pulmonary hypertension and heart failure with preserved ejection fraction. He is followed by Dr. Daugherty in the pulmonary medicine clinic. In fact, he was actually scheduled to be seen today. The patient is currently being maintained on a triple therapy inhaler regimen with Trelegy Ellipta and as needed albuterol. The patient does have chronic hypoxemic respiratory failure, having last completed a 6-minute walk test in April 2018, which demonstrated the need for 3 L/min of supplemental oxygen with exert ion. At his baseline, the patient reports infrequent use of his rescue inhaler. Unfortunately, the patient readily admits that he has not been utilizing his supplemental oxygen on a routine basis. He states that he only utilizes it intermittently. The patient is prescribed nocturnal CPAP therapy on an outpatient basis with a pressure support of 12 cm of water. On presentation to the emergency department, the patient was noted to be afebrile and hemodynamically stable. He was requiring 4 L/min of supplemental oxygen initially to maintain an oxygen saturation of 91%. Initial laboratory evaluation revealed no evidence of a leukocytosis. Arterial blood gas obtained on 4 L/min revealed a pH of 7.28 with a corresponding PCO2 of 72 and PO2 of 61. Chemistry profile was notable for an elevated serum bicarbonate 35. Troponin was negative x2. MRSA screen was positive. CTA chest was obtained and revealed no evidence for PE. However, there was upper lobe predominant groundglass osborn es, right greater than left. The patient was placed on BiPAP therapy and antibiotics were initiated. The patient was subsequently transferred to the medical intensive care unit for further management. Overnight, the patient was initially maintained on BiPAP 10/4, which was later changed to a pressure support of 14/6 after a repeat ABG revealed a pH of 7.25 with a PCO2 of 83 and PO2 of 69. Despite this, the patient is mentating appropriately. He denied the presence of a cough, chest tightness or wheezing. Past Medical History Past Medical History (Chronic Problems): Chronic Problems (Last Reviewed 10/08/18 @ 14:06 by Laine Jeronimo) Stage 3 chronic kidney disease (Chronic) Morbid obesity (Chronic) Lower extremity weakness (Chronic) Type 2 diabetes mellitus (Chronic) Osteoarthritis (Chronic) Chronic diastolic (congestive) heart failure (Chronic) Hyperlipidemia (Chronic) Essential (primary) hypertension (Chronic) Secondary pulmonary arterial hypertension (Chronic) Stage 2 moderate COPD by GOLD classification (Chronic) Shortness of breath (Chronic) ADELAIDE (obstructive sleep apnea) (Chronic) Medical History: Medical History (Last Reviewed 10/08/18 @ 14:06 by Laine Jeronimo) Ulcer of right lower extremity (Acute) L97.919 Chronic diastolic (congestive) heart failure (Chronic) I50.32 Hyperlipidemia (Chronic) E78.5 Essential (primary) hypertension (Chronic) I10 Secondary pulmonary arterial hypertension (Chronic) I27.21 Stage 2 moderate COPD by GOLD classification (Chronic) J44.9 Shortness of breath (Chronic) R06.02 A[place]IDE (obstructive sleep apnea) (Chronic) G47.33 Chronic kidney disease, stage 3 N18.3 Chronic venous insufficiency I87.2 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 Normocytic anemia D64.9 Obesity E66.9 Type 2 diabetes mellitus E11.9 Chronic cutaneous venous stasis ulcer (Resolved) I83.009 RLE Extremity Tobacco use Z72.0 Chronic venous stasis dermatitis (Inactive) I83.10 Allergies lisinopril Allergy (Severe, Verified 10/08/18 14:06) Angioedema latanoprost [From Xalatan] Adverse Reaction (Unknown, Verified 11/08/18 20:25) Other precipitation in eyes Sulfa (Sulfonamide Antibiotics) Adverse Reaction (Verified 10/08/18 14:06) Other chapstick Allergy (Uncoded 11/08/18 20:25) swelling Home Medications: Ambulatory Orders Medication Instructions Recorded hydrALAZINE [Apresoline] 50 mg PO TID #90 tab 09/20/15 tramadol 50 mg tablet 50 mg PO TID PRN tab 10/24/17 brimonidine 0.2 % eye drops 1 drp OPHTHALMIC BID ml 05/04/18 dorzolamide 2 %-timolol 0.5 % (PF) 1 drp OPHTHALMIC BID 05/04/18 eye drops ipratropium-albuterol 0.5 mg-3 3 ml INHALATION Q6H PRN ml 05/04/18 mg(2.5 mg base)/3 mL nebulization soln losartan 100 mg tablet 100 mg PO DAILY 05/04/18 omeprazole 20 mg capsule,delayed 20 mg PO DAILY 05/04/18 release labetalol 200 mg tablet 200 mg PO TID tab 05/30/18 tamsulosin 0.4 mg capsule 0.4 mg PO DAILY 05/30/18 furosemide 20 mg tablet 20 mg PO DAILY #30 tab 06/06/18 furosemide 40 mg tablet 40 mg PO BID #180 tab 07/04/18 aspirin 325 mg tablet 325 mg PO DAILY 09/06/18 latanoprost 0.005 % eye drops 1 drp OPHTHALMIC QPM 09/06/18 fluticasone fur. 100 mcg-umeclid 1 inh INHALATION DAILY #60 ea 11/08/18 62.5 mcg-vilant 25 mcg inhalat.powder sitagliptin 50 mg tablet 50 mg PO DAILY #30 tab 11/08/18 Surgical History: no surgical history Psychiatric History: No pertinent psych hx Lives: Spouse/ Significant Other Smoking Status: Former smoker Tobacco Use: Cigarettes Alcohol: None Drugs: None - *Family History Maternal Family History: Family History (Last Reviewed 10/08/18 @ 14:06 by Laine Jeronimo) Father Cancer Mother Asthma History Items: Asthma Paternal Family History: Family History (Last Reviewed 10/08/18 @ 14:06 by Laine Jeronimo) Father Cancer Mother Asthma History Items: Cancer Review of Systems Constitutional: Reports: Fatigue. Denies: Chills, Fever Eyes: Denies: Blurred vision, Double vision HEENT: Denies: Head Aches, Sinus Congestion, Sinus Drainage Cardiovascular: Denies: Chest Pain, Palpitations Respiratory: Reports: Shortness of Breath. Denies: Cough, Sputum production, Wheezing Gastrointestinal: Denies: Abdominal Pain, Nausea, Vomiting Genitourinary: Denies: Dysuria Musculoskeletal: Denies: Joint Pain, Joint Tenderness Skin: Reports: Wounds - Chronic Neurological: Denies: Numbness, Tingling, Focal weakness Psychiatric: Denies: Anxiety, Depression, Homicidal Ideations, Suicidal Ideations Hematologic/ Lymphatic: Reports: Anemia Patient Problems: Active and Suspected Problems (Last Reviewed 10/08/18 @ 14:06 by Laine Jeronimo) Acute respiratory failure with hypoxia and hypercapnia (Acute) Bilateral pulmonary infiltrates on CXR (Acute) Objective: The patient's most recent lab work, culture data and imaging studies have all been personally reviewed. Surface echocardiogram from June 2018 revealed moderate concentric LVH with an ejection fraction of 65% and stage II diastolic dysfunction. There was evidence of mild biatrial enlargement along with a pulmonary artery systolic pressure which was estimated to be 35 mmHg. - Physical Exam General: Alert, Cooperative, No apparent distress, - - BiPAP currently in place. HEENT: Atraumatic, PERRLA, Normocephalic Oral: No Gingival or Mucosal Lesions/ Ulcerations Neck: Supple, No Nodes, Trachea Midline Lungs: No rhonchi, No wheeze, No rales, Diminished Cardiovascular: Regular rate, Regular Rhythm, Normal S1, Normal S2 Abdomen: Bowel Sounds Present, Soft, Non Tender, Obese Extremities: No clubbing, No cyanosis, Edema Skin: - - Chronic lower extremity wound Musculoskeletal: No Muscle Wasting Lymphatic: No Cervical, Supraclavicular, or Inguinal Adenopathy Neurological: Cranial nerves II-XII grossly intact, Neuro grossly intact Psych/Mental Status: Normal Affect, Appropriate Vital Signs Temp Pulse Resp BP Pulse Ox 97.6 F L 77 22 H 139/74 H 98 11/09/18 04:00 11/09/18 06:00 11/09/18 06:00 11/09/18 06:00 11/09/18 06:00 Oxygen Flow Rate (L/min) 4 Oxygen Delivery Method Bi-pap Weight: 303 lb 9.224 oz Body Mass Index (BMI) 44.8 Intake and Output for Last 24 Hours 11/07/18 11/08/18 11/09/18 23:59 23:59 23:59 Intake Total 50 / 50 1682.29 / 1682.29 Output Total 450 / 450 Balance 50 / 50 1232.29 / 1232.29 Microbiology Past 72 Hours 11/09/18 00:50 Streptococcus pneumoniae Antigen (M - Final Urine, Clean Catch 11/09/18 00:50 Legionella Antigen - Final Urine, Clean Catch Laboratory Tests Past 24 Hrs 11/08/18 11/09/18 11/09/18 22:31 00:55 01:00 WBC RBC Hgb Hct MCV MCH MCHC RDW Std Deviation RDW Coeff of Johanna Plt Count MPV Immature Gran % (Auto) Neut % (Auto) Lymph % (Auto) Creek % (Auto) Eos % (Auto) Baso % (Auto) Absolute Neuts (auto) Absolute Lymphs (auto) Nucleated RBC % Specimen Type ART Sample Site L Radial pH 7.28 L Bicarbonate Actual 33.8 H POC Total CO2 36 Base Excess 7 H O2 Saturation 87 L ABG pCO2 71.7 H* ABG pO2 61 L Frederick Test POS O2 Delivery Device Nasal Can Liter Flow 4.0 Blood Gas Notified Whom ED Blood Gas Notified Time 2225 Sodium Potassium Chloride Carbon Dioxide Anion Gap BUN Creatinine Est GFR (MDRD) Af Amer Est GFR (MDRD) Non-Af BUN/Creatinine Ratio Glucose Calcium Magnesium 2.1 Troponin I < 0.015 S.aureus Protein A PCR POSITIVE H MRSA (PCR) POSITIVE H 11/09/18 11/09/18 11/09/18 03:11 06:00 06:00 WBC 8.4 RBC 3.49 L Hgb 9.9 L Hct 32.5 L MCV 93.1 MCH 28.4 MCHC 30.5 L RDW Std Deviation 50.1 H RDW Coeff of Johanna 14.6 Plt Count 212 MPV 9.4 Immature Gran % (Auto) 0.200 Neut % (Auto) 78.9 H Lymph % (Auto) 7.8 L Creek % (Auto) 10.9 H Eos % (Auto) 2.0 Baso % (Auto) 0.2 Absolute Neuts (auto) 6.6 Absolute Lymphs (auto) 0.65 L Nucleated RBC % 0 Specimen Type Sample Site pH Bicarbonate Actual POC Total CO2 Base Excess O2 Saturation ABG pCO2 ABG pO2 Frederick Test O2 Delivery Device Liter Flow Blood Gas Notified Whom Blood Gas Notified Time Sodium Pending Potassium Pending Chloride Pending Carbon Dioxide Pending Anion Gap Pending BUN Pending Creatinine Pending Est GFR (MDRD) Af Amer Pending Est GFR (MDRD) Non-Af Pending BUN/Creatinine Ratio Pending Glucose Pending Calcium Pending Magnesium Troponin I < 0.015 S.aureus Protein A PCR MRSA (PCR) 11/09/18 06:00 WBC RBC Hgb Hct MCV MCH MCHC RDW Std Deviation RDW Coeff of Johanna Plt Count MPV Immature Gran % (Auto) Neut % (Auto) Lymph % (Auto) Creek % (Auto) Eos % (Auto) Baso % (Auto) Absolute Neuts (auto) Absolute Lymphs (auto) Nucleated RBC % Specimen Type Sample Site pH Bicarbonate Actual POC Total CO2 Base Excess O2 Saturation ABG pCO2 ABG pO2 Frederick Test O2 Delivery Device Liter Flow Blood Gas Notified Whom Blood Gas Notified Time Sodium Potassium Chloride Carbon Dioxide Anion Gap BUN Creatinine Est GFR (MDRD) Af Amer Est GFR (MDRD) Non-Af BUN/Creatinine Ratio Glucose Calcium Magnesium Troponin I Pending S.aureus Protein A PCR MRSA (PCR) Clinical Impression(s) from Imaging Studies Chest CTA 11/08/18 20:38 IMPRESSION: No evidence of pulmonary embolism. 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 Stable dating back to 2015. Patchy airspace disease/infiltrate in the upper lobes. Could represent infection or edema. Stable cardiomegaly Electronically Signed: Andrew Alejo DO at 21:51 EDT Tel , Service support , Assessment/Plan Active and Suspected Problems (Last Reviewed 10/08/18 @ 14:06 by Laine Jeronimo) Acute respiratory failure with hypoxia and hypercapnia (Acute) Bilateral pulmonary infiltrates on CXR (Acute) RECOMMENDATIONS: 1. Continue broad-spectrum antimicrobial coverage, pending infectious work-up. 2. Increase IPAP pressure support to 18 cmH2O. 3. If patient is unable to tolerate BiPAP, transition to AVAPS with naps/nightly. 4. Encourage incentive spirometer use and mobilize patient as tolerated. 5. Wean supplemental oxygen as tolerated. 6. Obtain repeat surface echocardiogram. IMPRESSIONS: 1. Acute on chronic combined respiratory failure The patient is supposed to be utilizing 3 L/min of supplemental oxygen with exertion. However, he readily admits that he is not utilizing the supplemental O2 as prescribed. He did have upper lobe predominant groundglass changes on CT, which could be related to an underlying pulmonary infectious process. I do suspect that his presenting dyspnea is likely a consequence of his noncompliance with supplemental O2 coupled with potential infection. For now, the patient will remain on broad-spectrum antimicrobial therapy, pending infectious work-up. His IPAP pressure support will be increased to help support his minute ventilation requirements. If the patient does not tolerate the increased pressure support, he can be transitioned to AVAPS, which I would plan to continue with naps and nightly. Okay to continue bronchodilators. Wean supplemental oxygen as tolerated. Encourage incentive spirometer use and mobilize patient as tolerated. 2. Heart failure with preserved ejection fraction/pulmonary hypertension Recommend discontinuation of supplemental IV fluids. I would recommend obtaining a repeat echocardiogram, given the patient's noncompliance with ontiveros pplemental oxygen, to evaluate for the presence of worsening pulmonary hypertension or RV dysfunction. 3. Chronic COPD/obstructive sleep apnea The patient regularly follows with Dr. Daugherty on an outpatient basis. Recommend continuing bronchodilators as ordered. Nocturnal Pap therapy will be continued. 4. Hypertension/hyperlipidemia/anemia/chronic kidney disease/obesity/diabetes Complicates care, management, recovery and prognosis. Continue sliding scale insulin coverage. Physical therapy to work with the patient. Okay to continue home medications. This note was generated with [employer] dictation software. It may contain incorrect words, spelling, and punctuation that were not noted in checking the note before signing. Code Visit Inpatient E&M: 86570 Init Hosp L3
[2018-11-09 06:29] LABS: Anion Gap 2 (5-15); BUN 31 mg/dL (7-18); Calcium,Total 8.8 mg/dL (8.5-10.1); Chloride 99 mmol/L (98-107); Creatinine, Serum 1.29 mg/dL (0.70-1.30); EST Glomerular Filtration Rate 60 mL/min (>60); Est Glom Filt Rate - Afr Amer 72 mL/min (>60); Estimated Creatinine Clearance 57.85 ml/min; Glucose 105 mg/dL (74-106); Potassium 4.4 mmol/L (3.5-5.1); Sodium Level 136 mmol/L (136-145)
[2018-11-09 06:41] LABS: Allen Test POS; Blood Gas Specimen Type ART; O2 Delivery Device Bi Pap; SITE L RADIAL
[2018-11-09 06:42] LABS: EPAP 4; FI02 40; IPAP 10; Time Given 529; pH 7.25 (7.35-7.45)
[2018-11-09 06:44] LABS: Bicarbonate 36.6 mmol/L (22-26); PO2 69 mmHG (75-100); pCO2 82.6 mmHg (35-45)
[2018-11-09 06:45] LABS: Base Excess 9 mmol/L (-2 to +2); SO2 89 % (95-99); Total Carbon Dioxide 39 mmol/L
--- NOTE | 2018-11-09 06:49 | ECHOCS_ITS ---
Reason For Study: Dyspnea/SOB Procedure This was a 2D Doppler, Color Flow transthoracic echocardiogram. The study was technically difficult. Contrast injection was performed. The exam was of poor technical quality due to pt being scanned supine and upright.. Exam performed portable in ICU/CCU. Left Ventricle Based upon the 2D echocardiographic and contrast enhanced views there appears to be grossly normal left ventricular size, wall motion, and systolic function. The estimated ejection fraction is 65 %. Diastolic function is indeterminate. Right Ventricle Based upon the 2D echocardiographic and contrast enhanced views there appears to be grossly normal right ventricular size and systolic function. Atria The left atrium is mildly enlarged. Normal right atrium. No doppler evidence for ASD. Mitral Valve There is mild mitral annular calcification. Extension of the mitral annular calcification onto the posterior mitral valve leaflet. Trivial mitral valve insufficiency. Tricuspid Valve Normal tricuspid valve. Trivial tricuspid valve insufficiency. Right ventricular systolic pressure estimated to be 31 mmHg. Aortic Valve The aortic valve is not well visualized. Pulmonic Valve The pulmonic valve is not well visualized. Great Vessels Borderline enlarged aortic root. Pericardium/Pleural No pericardial effusion. Medication Diluted definity 4ml given slow IV push to enhance endocardial definition. MMode/2D Measurements & Calculations LVIDd: 4.8 cm IVSd: 1.3 cm LVOT diam: 2.1 cm LVIDs: 3.4 cm LVPWd: 1.2 cm FS: 29.7 % LVOT area: 3.6 cm2 Ao root diam: 3.8 cm LAV(MOD-sp4): 64.5 ml LA A4 area: 20.3 cm2 RA A4 area: 14.2 cm2 Time Measurements MV dec time: 0.29 sec Doppler Measurements & Calculations MV E max jb: 83.9 cm/sec Lat Peak E' Jb: 8.9 cm/sec Med Peak E' Jb: 5.5 cm/sec MV A max jb: 99.9 cm/sec E/E' lat: 9.4 E/E' med: 15.3 MV E/A: 0.84 MV V2 max: 131.0 cm/sec MV P1/2t max jb: 110.7 cm/sec Ao V2 max: 232.1 cm/sec MV max P.9 mmHg MV P1/2t: 90.8 msec Ao max P.5 mmHg MV V2 mean: 75.6 cm/sec MV dec slope: 357.1 cm/sec2 Ao V2 mean: 136.2 cm/sec MV mean P.6 mmHg Ao mean P.2 mmHg MV V2 VTI: 37.8 cm MVA(P1/2t): 2.4 cm2 Ao V2 VTI: 45.4 cm MVA(VTI): 3.2 cm2 LACI(I,D): 2.6 cm2 LACI(V,D): 2.1 cm2 LV V1 max: 133.8 cm/sec SV(LVOT): 119.2 ml PA V2 max: 104.0 cm/sec LV V1 max P.2 mmHg LV V1 mean P.9 mmHg LV V1 mean: 91.9 cm/sec LV V1 VTI: 33.5 cm TR max jb: 241.2 cm/sec TR max P.3 mmHg Interpretation Summary The study was technically difficult. Contrast injection was performed. Based upon the 2D echocardiographic and contrast enhanced views there appears to be grossly normal left ventricular size, wall motion, and systolic function. The estimated ejection fraction is 65 %. The left atrium is mildly enlarged. There is mild mitral annular calcification. Extension of the mitral annular calcification onto the posterior mitral valve leaflet. Trivial mitral valve insufficiency. Trivial tricuspid valve insufficiency. Borderline enlarged aortic root. Right ventricular systolic pressure estimated to be 31 mmHg. Diastolic function is indeterminate. Ordering Physician: Deshaun Ruth Referring Physician: Alex Pedersen Performed By: Herman Lincoln RCS
--- NOTE | 2018-11-09 07:05 | PN_ITS ---
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 He denied fever/chills/cough/sore throat/rhinorrhea. He admitted to not using oxygen on a routine basis. He also wears the BIPAP for only about 4 hours a night. Vital signs at presentation to the emergency department were temperature 97.9, heart rate 81, blood pressure 147/81, respiratory rate 20 and he was 91% saturated on a 4 L nasal cannula. ABG on a 4 L nasal cannula showed a pH of 7.28, PCO2 of 71.7 and a PO2 of 61. CBC showed a white blood cell count of 8.4 with 79% neutrophils. Hemoglobin was 10.7, down from 12.3 in July 2018. Platelets were within normal limits. Initial creatinine was 1.51 which is within his baseline. A PCR on the wound drainage from the venous stasis ulcer which has been present for 3 years on his right lower was positive for MRSA. CTA of the chest showed no evidence of pulmonary embolism. 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 There was patchy airspace disease in the upper lobes. He was admitted to the intensive care unit on BiPAP and started on vancomycin and Zosyn. Consult was placed with Dr. Ruth. Afebrile since admission Vital signs are stable. He is currently 90 to 94% saturated on 4 L nasal cannula. Telemetry shows normal sinus rhythm with a rare PVC. All lab and imaging was personally reviewed Streptococcal and Legionella antigens were negative in the urine. Respiratory panel was negative. Sputum Gram stain shows 3+ red blood cells, 1+ white blood cells and rare gram-positive cocci. Culture is pending. Echocardiogram today shows grossly normal left ventricular size, wall motion and systolic function with an estimated ejection fraction of 65%. Left atrium is mildly enlarged. The right ventricular systolic pressure was estimated to be 31. I suspect the PA pressure is higher than this .....review of old records shows he has no prior ECHO and has never had a R heart cath to determine the true PA pressure. - Physical Exam General: Alert, Oriented x3, Cooperative, No apparent distress, Well developed, Well nourished HEENT: Atraumatic, Normocephalic, - - currently on a NC and is not tachypneic and has non conversational dyspnea Oral: No Gingival or Mucosal Lesions/ Ulcerations Neck: No Nodes, Trachea Midline Lungs: Clear to auscultation, No rhonchi, No wheeze, No rales, Diminished Cardiovascular: Regular rate, Regular Rhythm, Normal S1, Normal S2, No murmurs, No Ectopic Activity, No Gallop Abdomen: Bowel Sounds Present, Soft, Non Tender, Non-Distended, Obese Extremities: No clubbing, No cyanosis, Edema Skin: - - there is a venous stasis ulcer on the RLE proximal to the ankle. No erythema, no increased warmth to touch, no odor, no purulent DC observed Musculoskeletal: No Muscle Wasting Neurological: Cranial nerves II-XII grossly intact, Neuro grossly intact Psych/Mental Status: Normal Affect, Appropriate Vital Signs Temp Pulse Resp BP Pulse Ox 97.6 F L 77 22 H 139/74 H 98 11/09/18 04:00 11/09/18 06:00 11/09/18 06:00 11/09/18 06:00 11/09/18 06:00 Oxygen Flow Rate (L/min) 4 Oxygen Delivery Method Bi-pap Weight: 303 lb 9.224 oz Body Mass Index (BMI) 44.8 Intake and Output for Last 24 Hours 11/07/18 11/08/18 11/09/18 23:59 23:59 23:59 Intake Total 50 / 50 1682.29 / 1682.29 Output Total 450 / 450 Balance 50 / 50 1232.29 / 1232.29 Microbiology Past 72 Hours 11/09/18 00:50 Streptococcus pneumoniae Antigen (M - Final Urine, Clean Catch 11/09/18 00:50 Legionella Antigen - Final Urine, Clean Catch Laboratory Tests Past 24 Hrs 11/08/18 11/09/18 11/09/18 22:31 00:55 01:00 WBC RBC Hgb Hct MCV MCH MCHC RDW Std Deviation RDW Coeff of Johanna Plt Count MPV Immature Gran % (Auto) Neut % (Auto) Lymph % (Auto) [place] % (Auto) Eos % (Auto) Baso % (Auto) Absolute Neuts (auto) Absolute Lymphs (auto) Nucleated RBC % Specimen Type ART Sample Site L Radial pH 7.28 L Bicarbonate Actual 33.8 H POC Total CO2 36 Base Excess 7 H O2 Saturation 87 L O2 % ABG pCO2 71.7 H* ABG pO2 61 L Frederick Test POS O2 Delivery Device Nasal Can Liter Flow 4.0 EPAP IPAP Blood Gas Notified Whom ED Blood Gas Notified Time 2225 Sodium Potassium Chloride Carbon Dioxide Anion Gap BUN Creatinine Estim Creat Clear Calc Est GFR (MDRD) Af Amer Est GFR (MDRD) Non-Af BUN/Creatinine Ratio Glucose Calcium Magnesium 2.1 Troponin I < 0.015 B-Natriuretic Peptide S.aureus Protein A PCR POSITIVE H MRSA (PCR) POSITIVE H 11/09/18 11/09/18 11/09/18 03:11 05:29 06:00 WBC 8.4 RBC 3.49 L Hgb 9.9 L Hct 32.5 L MCV 93.1 MCH 28.4 MCHC 30.5 L RDW Std Deviation 50.1 H RDW Coeff of Johanna 14.6 Plt Count 212 MPV 9.4 Immature Gran % (Auto) 0.200 Neut % (Auto) 78.9 H Lymph % (Auto) 7.8 L [place] % (Auto) 10.9 H Eos % (Auto) 2.0 Baso % (Auto) 0.2 Absolute Neuts (auto) 6.6 Absolute Lymphs (auto) 0.65 L Nucleated RBC % 0 Specimen Type ART Sample Site L RADIAL pH 7.25 L Bicarbonate Actual 36.6 H POC Total CO2 39 Base Excess 9 H O2 Saturation 89 L O2 % 40 ABG pCO2 82.6 H* ABG pO2 69 L Frederick Test POS O2 Delivery Device Bi Pap Liter Flow EPAP 4 IPAP 10 Blood Gas Notified Whom [facility] Blood Gas Notified Time 529 Sodium Potassium Chloride Carbon Dioxide Anion Gap BUN Creatinine Estim Creat Clear Calc Est GFR (MDRD) Af Amer Est GFR (MDRD) Non-Af BUN/Creatinine Ratio Glucose Calcium Magnesium Troponin I < 0.015 B-Natriuretic Peptide S.aureus Protein A PCR MRSA (PCR) 11/09/18 11/09/18 11/09/18 06:00 06:00 06:00 WBC RBC Hgb Hct MCV MCH MCHC RDW Std Deviation RDW Coeff of Johanna Plt Count MPV Immature Gran % (Auto) Neut % (Auto) Lymph % (Auto) [place] % (Auto) Eos % (Auto) Baso % (Auto) Absolute Neuts (auto) Absolute Lymphs (auto) Nucleated RBC % Specimen Type Sample Site pH Bicarbonate Actual POC Total CO2 Base Excess O2 Saturation O2 % ABG pCO2 ABG pO2 Frederick Test O2 Delivery Device Liter Flow EPAP IPAP Blood Gas Notified Whom Blood Gas Notified Time Sodium 136 Potassium 4.4 Chloride 99 Carbon Dioxide 35.0 H Anion Gap 2 L BUN 31 H Creatinine 1.29 Estim Creat Clear Calc 57.85 Est GFR (MDRD) Af Amer 72 Est GFR (MDRD) Non-Af 60 BUN/Creatinine Ratio 24.0 H Glucose 105 Calcium 8.8 Magnesium Troponin I < 0.015 B-Natriuretic Peptide Pending S.aureus Protein A PCR MRSA (PCR) Medical Necessity - Tobacco Use Smoking Status: Former smoker Tobacco Use: Cigarettes Assessment/Plan All Active Problems (Last Reviewed 10/08/18 @ 14:06 by Laine Jeronimo) Acute respiratory failure with hypoxia and hypercapnia (Acute) Bilateral pulmonary infiltrates on CXR (Acute) Ulcer of right lower extremity (Acute) Chronic cutaneous venous stasis ulcer (Resolved) Vancomycin and Zosyn day #2 Impressions 1. Acute on chronic combined respiratory failure - non-compliant with supplemental oxygen on a routine basis at home. Continue BiPAP anytime he is sleeping. Titrate the O2 to maintain his oxygen saturation between 89 and 93%. Continue broad-spectrum antimicrobial therapy even though he is afebrile with a normal white blood cell count. Await for the sputum culture in light of upper lobe groundglass appearance on CT of the chest. BiPAP settings adjusted by Dr. Ruth. Continue aerosolized budesonide and bronchodilators 2. Chronic diastolic dysfunction with preserved ejection fraction-intravenous fluids discontinued. Lasix 40 mg p.o. twice daily 3. N/N anemia with an increased RDW std deviation - why is he anemic if he is chronically hypoxic and does not wear his oxygen on a routine basis? check irone studies, retic count, hemoccult stool, TSH was normal in early October....may be due to hypogonadism. 4. Vitamin D deficiency 5. Hypogonadism 6. Chronic renal failure stage III 7. Diabetes mellitus type 2-controlled, hemoglobin A1c within the past month was 6.8% 8. Venous stasis ulcer of the right lower extremity-nonhealing. Using SurePress wraps daily. Evidence of infection. 9. Morbid obesity 10. Obstructive sleep apnea-compliant with CPAP usually 4 hours a night 11. Hypertension-continue antihypertensives 12. BPH continue Flomax Code Visit Inpatient E&M: 51177 Subs Hosp L3
[2018-11-09] MEDS: Ipratropium/Albuterol Sulfate 3 ML AMPUL.NEB INHALATION ×3 (07:18→19:31)
[2018-11-09] MEDS: Budesonide Respules 0.5 MG/2 ML AMPUL.NEB. INHALATION ×2 (07:18→19:31)
[2018-11-09 08:11] LABS: BNP,B-Type NATRIURETIC PEPTIDE 69.4 pg/mL (0-100)
[2018-11-09 08:20] LABS: Bedside Glucose 98 mg/dL (70-110)
[2018-11-09] MEDS: Pantoprazole Sodium 20 MG Tablet PO (09:27)
[2018-11-09] MEDS: Losartan Potassium 100 MG Tablet PO (09:27)
[2018-11-09] MEDS: Tamsulosin HCl 0.4 MG Capsule PO (09:27)
[2018-11-09] MEDS: Aspirin 325 MG Tablet PO (09:27)
[2018-11-09] MEDS: Furosemide 40 MG Tablet PO ×2 (09:27→17:03)
[2018-11-09] MEDS: Enoxaparin 40 MG/0.4 ML Syringe SC (09:27)
--- NOTE | 2018-11-09 10:00 | CASEMGMT ---
CHARISSA ORDOÑEZ COSMETIC ACCOUNT COORDINATOR CM to room to meet with patient for initial transition planning/care coordination assessment. CHARISSA ORDOÑEZ introduced self and role at [facility]. Pt voices understanding and consents to assessment at this time. Pt resting in bed in no distress at this time. and son at bedside. Pt is A/O at this time and answers all questions appropriately. Care providers, pharmacy, and demographics verified/updated at this time. PCP: [facility] Specialists: Rosemary--cardiology, Dat--pulmonology, Enedina--Rheumatology, Valeriy--Opthamology [facility]erred [facility]acy: [facility] Insurance: MMO Prescription Benefit: Yes Living Will/HPOA: does not have LW or HCPOA and is interested in talking with SW. SW, Vero, made aware. LNOK: and 3 adult children Living Arrangements: Lives with his and 3 children. Independent w/personal ADL's. does home mgmt tasks such as meals, laundry, and cleaning. does daily dressing changes to wound. Lives in a 2-story home. has been having more difficulty w/stairs. Can do FFSU if needed. Pt and family state they are considering putting in a chair lift on the stairs. Transportation: Pt states drives self and states no transportation concerns at this time. DME: has the following DME: Crutches, CPAP, nebulizer, O2 @ 3 L/M thru [employer]. Pt states no need for further DME at this time. HHC/SNF: No history of either and pt denies needs. Son, David, stated thought pt would benefit from PT. Discussed HHC vs OP therapy with pt. Pt declined wanting either at this time. David stated again he felt that pt could use some therapy. CHARISSA ORDOÑEZ offered obtaining a script for OP and if he decides to get OP therapy later, he could take to his location of choice and pt and family agreeable to this. Pt wishes to return home and states has no concerns with going home at time of discharge. CM to follow for home oxygen needs and any further discharge planning/needs. Pt voices no further concerns/needs at this time. Advised pt to ask for CM if any further questions/concerns/needs arise. Voices understanding. PLAN: Home w/script for OP therapy, family support, and discharge plans in place. Nora MICHAELS RN, CM
--- NOTE | 2018-11-09 11:30 | CASEMGMT ---
SW met w/pt in regard to LW/POA, pt's son present. SW reviewed documents w/pt, and gave him a social work rack card to call when he is ready to complete the forms. No further needs anticipated at this time. MARIANNE Avila
[2018-11-09 12:25] LABS: Bedside Glucose 176 mg/dL (70-110)
[2018-11-09] MEDS: Vancomycin IV 1,000 MG/200 ML BAG 200 MG IV (13:41)
--- NOTE | 2018-11-09 15:07 | PCM.RX.CS ---
Consult Pharmacy has been consulted to manage selected antiobiotic: Vancomycin Type of Consult: Follow-up Suspected Infection: Pneumonia Labs: Sodium 136 mmol/L (136-145) 11/09/18 06:00 Potassium 4.4 mmol/L (3.5-5.1) 11/09/18 06:00 Chloride 99 mmol/L (98-107) 11/09/18 06:00 Carbon Dioxide 35.0 mmol/L (21.0-32.0) H 11/09/18 06:00 2 (5-15) L 11/09/18 06:00 BUN 31 mg/dL (7-18) H 11/09/18 06:00 1.29 mg/dL (0.70-1.30) 11/09/18 06:00 Est GFR (MDRD) Af Amer 72 mL/min (>60) 11/09/18 06:00 Est GFR (MDRD) Non-Af 60 mL/min (>60) 11/09/18 06:00 24.0 RATIO (10-20) H 11/09/18 06:00 Glucose 105 mg/dL (74-106) 11/09/18 06:00 Microbiology: Microbiology 11/09/18 05:45 Mucosa - Nose Respiratory Panel (PCR) - Final 11/09/18 01:00 Wound - Leg, Right Gram Stain - Final 11/09/18 00:50 Urine, Clean Catch Streptococcus pneumoniae Antigen (M - Final 11/09/18 00:50 Urine, Clean Catch Legionella Antigen - Final Goal Trough: 10-15 mcg/mL Pharmacy Plan for Drug Dosing: Upon daily assessment of patient, I feel they may be underdosed and their renal function has improved. Changed to 1750mg Q12H starting 11/09/18 @ 0200. Pharmacy Service will continue to monitor and adjust dosing as required. Labs to be done on [date and time ordered]: Trough 11/10/18 @ 1330
[2018-11-09 17:06] LABS: Bedside Glucose 131 mg/dL (70-110)
[2018-11-09] MEDS: Latanoprost 0.005% 1 Bottle 1 DRP OPHTHALMIC (20:57)
[2018-11-09] MEDS: Insulin Lispro 100 UNIT/ML INSULN.PEN SC (21:03)
[2018-11-10] VITALS (39 sets, daily range): BP systolic 120–174; BP diastolic 66–103; PULSE 45–96; RESP 12–30; TEMP 36.6–37.6; O2SAT 40–99
[2018-11-10 00:36] LABS: Bedside Glucose 252 mg/dL (70-110)
[2018-11-10 04:29] LABS: Platelet Count 234 K/mm3 (150-450); RET-HE 24.4 pg (30-35); Reticulocyte Count 0.87 % (0.5-1.5)
[2018-11-10 04:45] LABS: ALB/GLOB Ratio 0.5 RATIO (0.9-2.4); AST(SGOT) 21 U/L (15-37); Alanine Aminotransfer ALT/SGPT 34 U/L (16-61); Albumin, Serum 2.6 g/dL (3.2-5.0); Alkaline Phosphatase 87 U/L (45-117); Anion Gap 5 (5-15); BUN 27 mg/dL (7-18); BUN/Creat Ratio 20.1 RATIO (10-20); Calcium,Total 8.9 mg/dL (8.5-10.1); Chloride 98 mmol/L (98-107); Creatinine, Serum 1.34 mg/dL (0.70-1.30); EST Glomerular Filtration Rate 57 mL/min (>60); Est Glom Filt Rate - Afr Amer 69 mL/min (>60); Estimated Creatinine Clearance 55.69 ml/min; Ferritin 644 ng/mL (26-388); Globulin 4.9 g/dL (2.2-4.2); Glucose 134 mg/dL (74-106); Iron 19 ug/dL (65-175); Iron Binding Capacity,Total 174 ug/dL (250-450); Magnesium 2.1 mg/dL (1.6-2.6); PERCENT IRON SATURATION 10.9 % (15.0-55.0); Phosphorus 3.6 mg/dL (2.5-4.9); Potassium 4.5 mmol/L (3.5-5.1); Protein, Total 7.5 g/dL (6.4-8.2); Sodium Level 140 mmol/L (136-145)
[2018-11-10 05:25] LABS: Bedside Glucose 143 mg/dL (70-110)
[2018-11-10] MEDS: hydrALAZINE 50 MG Tablet PO ×3 (05:39→21:13)
[2018-11-10] MEDS: Labetalol 200 MG Tablet PO ×3 (05:39→21:13)
[2018-11-10] MEDS: CHLORHEXIDINE GLUC 2% CLOTH 1 EACH TOWELETTE TOPICAL (05:55)
--- NOTE | 2018-11-10 06:04 | PN_ITS ---
Subjective: The patient was seen and examined at the bedside this morning. Events from the last 24 hours have been reviewed. The patient is currently afebrile, hemodynamically stable and maintaining appropriate oxygen saturations on BiPAP. The patient was able to be weaned down to 4 L/min via nasal cannula yesterday. He is currently documented to be overall net +829 mL's for the admission. This morning, the patient reported to me that he he is feeling much better. The patient does seem to like the increased pressure support of his BiPAP and states that he is not yet ready to take it off this morning. Objective: The patient's most recent lab work, culture data and imaging studies have all been personally reviewed. CTA chest revealed no evidence for PE. However, there was upper lobe predominant groundglass changes, right greater than left. Surface echocardiogram revealed normal LV size and function with an ejection fraction of 65%. Right ventricular systolic pressure was estimated to be 31 mmHg. Respiratory viral panel was negative. Strep and urine Legionella antigens were negative. Expectorated sputum cultures pending. General: Alert, Oriented x3, Cooperative, No apparent distress, - - BiPAP remains in place. HEENT: Atraumatic, PERRLA, Normocephalic Oral: Dry Mucosa Neck: Supple, No Nodes, Trachea Midline Lungs: No rhonchi, No wheeze, No rales, Diminished Cardiovascular: Regular rate, Regular Rhythm, Normal S1, Normal S2, No murmurs Abdomen: Bowel Sounds Present, Soft, Non Tender, Obese Extremities: No clubbing, No cyanosis, Edema Skin: - - Chronic lower extremity wound Musculoskeletal: No Muscle Wasting Lymphatic: No Cervical, Supraclavicular, or Inguinal Adenopathy Neurological: Cranial nerves II-XII grossly intact, Neuro grossly intact Psych/Mental Status: Normal Affect, Appropriate Vital Signs Temp Pulse Resp BP Pulse Ox 98.6 F 73 21 H 158/90 H 92 11/10/18 04:00 11/10/18 05:39 11/10/18 05:00 11/10/18 05:39 11/10/18 05:00 Oxygen Flow Rate (L/min) 4 Oxygen Delivery Method Bi-pap Weight: 303 lb 12.752 oz Body Mass Index (BMI) 44.8 Intake and Output for Last 24 Hours 11/08/18 11/09/18 11/10/18 23:59 23:59 23:59 Intake Total 50 / 50 2537.91 / 2537.91 916.67 / 916.67 Output Total 2125 / 2125 550 / 550 Balance 50 / 50 412.91 / 412.91 366.67 / 366.67 Labs (Last 48 Hours) 11/08/18 11/09/18 11/09/18 22:31 00:55 01:00 WBC RBC Hgb Hct MCV MCH MCHC RDW Std Deviation RDW Coeff of Johanna Plt Count MPV Immature Gran % (Auto) Neut % (Auto) Lymph % (Auto) [place] % (Auto) Eos % (Auto) Baso % (Auto) Absolute Neuts (auto) Absolute Lymphs (auto) Nucleated RBC % Retic Count Immature Retic Fraction Retic Hgb Equivalent Specimen Type ART Sample Site L Radial pH 7.28 L Bicarbonate Actual 33.8 H POC Total CO2 36 Base Excess 7 H O2 Saturation 87 L O2 % ABG pCO2 71.7 H* ABG pO2 61 L Frederick Test POS O2 Delivery Device Nasal Can Liter Flow 4.0 EPAP IPAP Blood Gas Notified Whom ED MD Blood Gas Notified Time 2225 Sodium Potassium Chloride Carbon Dioxide Anion Gap BUN Creatinine Estim Creat Clear Calc Est GFR (MDRD) Af Amer Est GFR (MDRD) Non-Af BUN/Creatinine Ratio Glucose Calcium Phosphorus Magnesium 2.1 Iron TIBC Iron Saturation Ferritin Total Bilirubin AST ALT Alkaline Phosphatase Troponin I < 0.015 B-Natriuretic Peptide Total Protein Albumin Globulin Albumin/Globulin Ratio S.aureus Protein A PCR POSITIVE H MRSA (PCR) POSITIVE H POC Glucose 11/09/18 11/09/18 11/09/18 03:11 05:29 06:00 WBC 8.4 RBC 3.49 L Hgb 9.9 L Hct 32.5 L MCV 93.1 MCH 28.4 MCHC 30.5 L RDW Std Deviation 50.1 H RDW Coeff of Johanna 14.6 Plt Count 212 MPV 9.4 Immature Gran % (Auto) 0.200 Neut % (Auto) 78.9 H Lymph % (Auto) 7.8 L [place] % (Auto) 10.9 H Eos % (Auto) 2.0 Baso % (Auto) 0.2 Absolute Neuts (auto) 6.6 Absolute Lymphs (auto) 0.65 L Nucleated RBC % 0 Retic Count Immature Retic Fraction Retic Hgb Equivalent Specimen Type ART Sample Site L RADIAL pH 7.25 L Bicarbonate Actual 36.6 H POC Total CO2 39 Base Excess 9 H O2 Saturation 89 L O2 % 40 ABG pCO2 82.6 H* ABG pO2 69 L Frederick Test POS O2 Delivery Device Bi Pap Liter Flow EPAP 4 IPAP 10 Blood Gas Notified Whom [facility] Blood Gas Notified Time 529 Sodium Potassium Chloride Carbon Dioxide Anion Gap BUN Creatinine Estim Creat Clear Calc Est GFR (MDRD) Af Amer Est GFR (MDRD) Non-Af BUN/Creatinine Ratio Glucose Calcium Phosphorus Magnesium Iron TIBC Iron Saturation Ferritin Total Bilirubin AST ALT Alkaline Phosphatase Troponin I < 0.015 B-Natriuretic Peptide Total Protein Albumin Globulin Albumin/Globulin Ratio S.aureus Protein A PCR MRSA (PCR) POC Glucose 11/09/18 11/09/18 11/09/18 06:00 06:00 06:00 WBC RBC Hgb Hct MCV MCH MCHC RDW Std Deviation RDW Coeff of Johanna Plt Count MPV Immature Gran % (Auto) Neut % (Auto) Lymph % (Auto) [place] % (Auto) Eos % (Auto) Baso % (Auto) Absolute Neuts (auto) Absolute Lymphs (auto) Nucleated RBC % Retic Count Immature Retic Fraction Retic Hgb Equivalent Specimen Type Sample Site pH Bicarbonate Actual POC Total CO2 Base Excess O2 Saturation O2 % ABG pCO2 ABG pO2 Frederick Test O2 Delivery Device Liter Flow EPAP IPAP Blood Gas Notified Whom Blood Gas Notified Time Sodium 136 Potassium 4.4 Chloride 99 Carbon Dioxide 35.0 H Anion Gap 2 L BUN 31 H Creatinine 1.29 Estim Creat Clear Calc 57.85 Est GFR (MDRD) Af Amer 72 Est GFR (MDRD) Non-Af 60 BUN/Creatinine Ratio 24.0 H Glucose 105 Calcium 8.8 Phosphorus Magnesium Iron TIBC Iron Saturation Ferritin Total Bilirubin AST ALT Alkaline Phosphatase Troponin I < 0.015 B-Natriuretic Peptide 69.4 Total Protein Albumin Globulin Albumin/Globulin Ratio S.aureus Protein A PCR MRSA (PCR) POC Glucose 11/09/18 11/09/18 11/09/18 07:54 12:15 16:50 WBC RBC Hgb Hct MCV MCH MCHC RDW Std Deviation RDW Coeff of Johanna Plt Count MPV Immature Gran % (Auto) Neut % (Auto) Lymph % (Auto) [place] % (Auto) Eos % (Auto) Baso % (Auto) Absolute Neuts (auto) Absolute Lymphs (auto) Nucleated RBC % Retic Count Immature Retic Fraction Retic Hgb Equivalent Specimen Type Sample Site pH Bicarbonate Actual POC Total CO2 Base Excess O2 Saturation O2 % ABG pCO2 ABG pO2 Frederick Test O2 Delivery Device Liter Flow EPAP IPAP Blood Gas Notified Whom Blood Gas Notified Time Sodium Potassium Chloride Carbon Dioxide Anion Gap BUN Creatinine Estim Creat Clear Calc Est GFR (MDRD) Af Amer Est GFR (MDRD) Non-Af BUN/Creatinine Ratio Glucose Calcium Phosphorus Magnesium Iron TIBC Iron Saturation Ferritin Total Bilirubin AST ALT Alkaline Phosphatase Troponin I B-Natriuretic Peptide Total Protein Albumin Globulin Albumin/Globulin Ratio S.aureus Protein A PCR MRSA (PCR) POC Glucose 98 176 H 131 H 11/09/18 11/10/18 11/10/18 20:59 03:34 04:05 WBC RBC Hgb Hct MCV MCH MCHC RDW Std Deviation RDW Coeff of Johanna Plt Count MPV Immature Gran % (Auto) Neut % (Auto) Lymph % (Auto) [place] % (Auto) Eos % (Auto) Baso % (Auto) Absolute Neuts (auto) Absolute Lymphs (auto) Nucleated RBC % Retic Count Immature Retic Fraction Retic Hgb Equivalent Specimen Type Sample Site pH Bicarbonate Actual POC Total CO2 Base Excess O2 Saturation O2 % ABG pCO2 ABG pO2 Frederick Test O2 Delivery Device Liter Flow EPAP IPAP Blood Gas Notified Whom Blood Gas Notified Time Sodium 140 Potassium 4.5 Chloride 98 Carbon Dioxide 37.0 H Anion Gap 5 BUN 27 H Creatinine 1.34 H Estim Creat Clear Calc 55.69 Est GFR (MDRD) Af Amer 69 Est GFR (MDRD) Non-Af 57 L BUN/Creatinine Ratio 20.1 H Glucose 134 H Calcium 8.9 Phosphorus 3.6 Magnesium 2.1 Iron 19 L TIBC 174 L Iron Saturation 10.9 L Ferritin 644 H Total Bilirubin 0.60 AST 21 ALT 34 Alkaline Phosphatase 87 Troponin I B-Natriuretic Peptide Total Protein 7.5 Albumin 2.6 L Globulin 4.9 H Albumin/Globulin Ratio 0.5 L S.aureus Protein A PCR MRSA (PCR) POC Glucose 252 H 143 H 11/10/18 04:05 WBC RBC Hgb Hct MCV MCH MCHC RDW Std Deviation RDW Coeff of Johanna Plt Count MPV Immature Gran % (Auto) Neut % (Auto) Lymph % (Auto) [place] % (Auto) Eos % (Auto) Baso % (Auto) Absolute Neuts (auto) Absolute Lymphs (auto) Nucleated RBC % Retic Count 0.87 Immature Retic Fraction 14.00 Retic Hgb Equivalent 24.4 L Specimen Type Sample Site pH Bicarbonate Actual POC Total CO2 Base Excess O2 Saturation O2 % ABG pCO2 ABG pO2 Frederick Test O2 Delivery Device Liter Flow EPAP IPAP Blood Gas Notified Whom Blood Gas Notified Time Sodium Potassium Chloride Carbon Dioxide Anion Gap BUN Creatinine Estim Creat Clear Calc Est GFR (MDRD) Af Amer Est GFR (MDRD) Non-Af BUN/Creatinine Ratio Glucose Calcium Phosphorus Magnesium Iron TIBC Iron Saturation Ferritin Total Bilirubin AST ALT Alkaline Phosphatase Troponin I B-Natriuretic Peptide Total Protein Albumin Globulin Albumin/Globulin Ratio S.aureus Protein A PCR MRSA (PCR) POC Glucose Microbiology 11/09/18 05:45 Mucosa - Nose Respiratory Panel (PCR) - Final 11/09/18 01:00 Wound - Leg, Right Gram Stain - Final 11/09/18 00:50 Urine, Clean Catch Streptococcus pneumoniae Antigen (M - Final 11/09/18 00:50 Urine, Clean Catch Legionella Antigen - Final Clinical Impression(s) from Imaging Studies Chest CTA 11/08/18 20:38 IMPRESSION: No evidence of pulmonary embolism. 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 Stable dating back to 2016. Patchy airspace disease/infiltrate in the upper lobes. Could represent infection or edema. Stable cardiomegaly Electronically Signed: Andrew Alejo DO at 21:51 EDT Tel , Service support , Chest X-Ray 11/09/18 05:55 IMPRESSION: Cardiomegaly and CHF. Electronically Signed: Michael Gaytan, at 8:53 EDT , Service support , Medical Necessity - Tobacco Use Tobacco Use: Cigarettes Assessment/Plan All Active Problems (Last Reviewed 10/08/18 @ 14:06 by Laine Jeronimo) Acute respiratory failure with hypoxia and hypercapnia (Acute) Bilateral pulmonary infiltrates on CXR (Acute) Bradycardia (Acute) CHF (congestive heart failure) (Acute) Thoracic aortic aneurysm, ruptured (Acute) Ulcer of right lower extremity (Acute) Chronic cutaneous venous stasis ulcer (Resolved) RECOMMENDATIONS: 1. Continue broad-spectrum antimicrobial coverage, pending infectious work-up. 2. Continue BiPAP with naps and nightly. 3. Wean supplemental oxygen to maintain saturations at or above 90%. 4. Encourage incentive spirometer use and mobilize patient as tolerated. 5. Continue bronchodilators and diuretic therapy. IMPRESSIONS: 1. Acute on chronic combined respiratory failure The patient is supposed to be utilizing 3 L/min of supplemental oxygen with exertion. However, he readily admits that he is not utilizing the supplemental O2 as prescribed. He did have upper lobe predominant groundglass changes on CT, which could be related to an underlying pulmonary infectious process. I do suspect that his presenting dyspnea is likely a consequence of his noncompliance with supplemental O2 coupled with potential infection. For now, the patient will remain on broad-spectrum antimicrobial therapy, pending infectious work-up. He has been tolerating BiPAP therapy without issue. He will be continued on bronchodilators and his supplemental O2 will be weaned. Encourage incentive spirometer use and mobilize patient as tolerated. 2. Heart failure with preserved ejection fraction/pulmonary hypertension Repeat surface echocardiogram was largely unchanged from previous without evidence of RV dysfunction or significant pulmonary hypertension. Continue diuretic therapy per outpatient regimen. 3. Chronic COPD/obstructive sleep apnea The patient regularly follows with Dr. Daugherty on an outpatient basis. Recommend continuing bronchodilators as ordered. Nocturnal Pap therapy will be continued. 4. Hypertension/hyperlipidemia/anemia/chronic kidney disease/obesity/diabetes Complicates care, management, recovery and prognosis. Continue sliding scale insulin coverage. Physical therapy to work with the patient. Okay to continue home medications. This note was generated with [employer] software. It may contain incorrect words, spelling, and punctuation that were not noted in checking the note before signing. Code Visit Inpatient E&M: [id number] [facility] L3
[2018-11-10] MEDS: Ipratropium/Albuterol Sulfate 3 ML AMPUL.NEB INHALATION ×3 (07:09→18:54)
[2018-11-10] MEDS: Budesonide Respules 0.5 MG/2 ML AMPUL.NEB. INHALATION ×2 (07:09→18:55)
--- NOTE | 2018-11-10 08:14 | CPS ---
Pt is currently on BIPAP, cannot do PEP at this time.
--- NOTE | 2018-11-10 09:41 | CM.UR ---
Participated in interdisciplinary rounds. Patient remains on bipap at this time. Has been going back and forth between bipap and 4 liters o2 per nc. Family members present and engaged in rounds. Plan is home with OP therapy. Family already has prescription for OP therapy. Denies additional needs at this time. Delmis Montano RN, CCM.
[2018-11-10] MEDS: Enoxaparin 40 MG/0.4 ML Syringe SC (10:25)
[2018-11-10] MEDS: Losartan Potassium 100 MG Tablet PO (10:25)
[2018-11-10] MEDS: Aspirin 325 MG Tablet PO (10:25)
[2018-11-10] MEDS: Pantoprazole Sodium 20 MG Tablet PO (10:25)
[2018-11-10] MEDS: Furosemide 40 MG Tablet PO ×2 (10:25→17:59)
[2018-11-10] MEDS: Tamsulosin HCl 0.4 MG Capsule PO (10:25)
[2018-11-10 11:25] LABS: Bedside Glucose 101 mg/dL (70-110)
--- NOTE | 2018-11-10 13:11 | PN_ITS ---
Patient Problems: Active and Suspected Problems (Last Reviewed 10/08/18 @ 14:06 by Laine Jeronimo) Acute respiratory failure with hypoxia and hypercapnia (Acute) Bilateral pulmonary infiltrates on CXR (Acute) Bradycardia (Acute) CHF (congestive heart failure) (Acute) Thoracic aortic aneurysm, ruptured (Acute) Subjective: Day #3 antibiotics-Rocephin and azithromycin All events of the past 24 hours of been reviewed. Temp was 99.8 last evening but is currently 97.8. He denies any shaking chills. Blood pressure is stable. Fluid balance on 11/09/2018 was +413. He was +527 overnight. Urine output on 11/09/2018 was 2125. He has been on BiPAP most of the morning and has been sleeping. He is 94% on 40% FiO2 on BiPAP. He feels better with the higher pressures ordered by Dr. Ruth. All lab and imaging was personally reviewed. Serum bicarb today is 37. The BUN is 27 and the creatinine is 1.34 which is in his baseline. The wound culture had group B strep, a staph species, a gram-negative smiley which is possibly Pseudomonas, a second gram-negative smiley and staph aureus. It does not appear to be infected and I suspect this is colonization. Sputum culture is normal respiratory bernabe but the final is still pending. Respiratory panel, Legionella and streptococcal antigens were all negative. Tele shows NSR but the HR sometimes while he is on BIPAP goes down to the 30's. - Physical Exam General: Alert, Oriented x3, Cooperative, - - BIPAP is on Oral: Dry Mucosa Neck: Supple, No Nodes, Trachea Midline Lungs: Clear to auscultation, No rhonchi, No wheeze, No rales, Diminished Cardiovascular: Regular rate, Regular Rhythm, Normal S1, Normal S2, No murmurs, No rub noted, No Gallop Abdomen: Bowel Sounds Present, Soft, Non Tender, Obese Extremities: No clubbing, Edema Neurological: Cranial nerves II-XII grossly intact, Neuro grossly intact Psych/Mental Status: Normal Affect, Appropriate Vital Signs Temp Pulse Resp BP Pulse Ox 97.8 F 65 17 154/87 H 94 11/10/18 11:00 11/10/18 11:00 11/10/18 11:00 11/10/18 11:00 11/10/18 09:10 Oxygen Flow Rate (L/min) 4 Oxygen Delivery Method Bi-pap Weight: 303 lb 12.752 oz Body Mass Index (BMI) 44.8 Intake and Output for Last 24 Hours 11/08/18 11/09/18 11/10/18 23:59 23:59 23:59 Intake Total 50 / 50 2537.91 / 2537.91 1076.67 / 1076.67 Output Total 2125 / 2125 550 / 550 Balance 50 / 50 412.91 / 412.91 526.67 / 526.67 Microbiology Past 72 Hours 11/09/18 08:00 Respiratory Culture - Preliminary Sputum, Expectorated/Coughed Appears to be normal respiratory bernabe. Further studies to follow. 11/09/18 01:00 Gram Stain - Final Wound - Leg, Right Wound Culture - Preliminary Streptococcus agalactiae (B) Staphylococcus species GNR Poss Pseudomonas sp Gram negative smiley Staphylococcus aureus 11/09/18 05:45 Respiratory Panel (PCR) - Final Mucosa - Nose 11/09/18 00:50 Streptococcus pneumoniae Antigen (M - Final Urine, Clean Catch 11/09/18 00:50 Legionella Antigen - Final Urine, Clean Catch Laboratory Tests Past 24 Hrs 11/10/18 11/10/18 04:05 04:05 Retic Count 0.87 Immature Retic Fraction 14.00 Retic Hgb Equivalent 24.4 L Sodium 140 Potassium 4.5 Chloride 98 Carbon Dioxide 37.0 H Anion Gap 5 BUN 27 H Creatinine 1.34 H Estim Creat Clear Calc 55.69 Est GFR (MDRD) Af Amer 69 Est GFR (MDRD) Non-Af 57 L BUN/Creatinine Ratio 20.1 H Glucose 134 H Calcium 8.9 Phosphorus 3.6 Magnesium 2.1 Iron 19 L TIBC 174 L Iron Saturation 10.9 L Ferritin 644 H Total Bilirubin 0.60 AST 21 ALT 34 Alkaline Phosphatase 87 Total Protein 7.5 Albumin 2.6 L Globulin 4.9 H Albumin/Globulin Ratio 0.5 L POC Glucose 11/10/18 11/10/18 11/09/18 11:22 03:34 20:59 POC Glucose 101 143 H 252 H 11/09/18 16:50 POC Glucose 131 H Medical Necessity - Tobacco Use Tobacco Use: Cigarettes Assessment/Plan All Active Problems (Last Reviewed 10/08/18 @ 14:06 by Laine Jeronimo) Acute respiratory failure with hypoxia and hypercapnia (Acute) Bilateral pulmonary infiltrates on CXR (Acute) Bradycardia (Acute) CHF (congestive heart failure) (Acute) Thoracic aortic aneurysm, ruptured (Acute) Ulcer of right lower extremity (Acute) Chronic cutaneous venous stasis ulcer (Resolved) Antibiotics day #3-vancomycin and Zosyn Impressions 1. Acute on chronic combined respiratory failure - non-compliant with supplemental oxygen on a routine basis at home. Continue BiPAP anytime he is sleeping. Pressures increased by Dr. Ruth and he is feeling much better. He is on CPAP of 12 at home and this may not be enough. Titrate the O2 to maintain his oxygen saturation between 89 and 93%. Continue broad-spectrum antimicrobial therapy even though he is afebrile with a normal white blood cell count. Await the sputum culture final report in light of upper lobe groundglass appearance on CT of the chest. Continue aerosolized budesonide and bronchodilators 2. Chronic diastolic dysfunction with preserved ejection fraction-intravenous fluids discontinued. Lasix 40 mg p.o. twice daily. fluid balance is still positive.....may need to increase the dose or the frequency 3. N/N anemia with an increased RDW std deviation - why is he anemic if he is chronically hypoxic and does not wear his oxygen on a routine basis? check iron studies, retic count, hemoccult stool, TSH was normal in early October....may be due to hypogonadism. 4. Vitamin D deficiency 5. Hypogonadism 6. Chronic renal failure stage III - stable 7. Diabetes mellitus type 2-controlled, hemoglobin A1c within the past month was 6.8% 8. Venous stasis ulcer of the right lower extremity-nonhealing. Using SurePress wraps daily. No evidence of infection.....polymicrobial results on the wound culture likely represent contamination/colonization 9. Morbid obesity 10. Obstructive sleep apnea-compliant with CPAP usually 4 hours a night 11. Hypertension-continue antihypertensives 12. BPH continue Flomax Recheck CBC in the AM Discussed on rounds with the ICU team EYAD Mosher await the final on the sputum culture Recheck CXR in the AM Code Visit Inpatient E&M: [id number] [facility] L3
--- NOTE | 2018-11-10 13:16 | CON.PCM_ITS ---
Problem List (1) Bradycardia Status: Acute (2) CHF (congestive heart failure) Status: Acute Qualifiers: Heart failure type: diastolic (3) Thoracic aortic aneurysm, ruptured Status: Acute (4) Hyperlipidemia Status: Chronic Qualifiers: Hyperlipidemia type: unspecified Qualified Code(s): E78.5 - Hyperlipidemia, unspecified (5) Essential (primary) hypertension Status: Chronic (6) Type 2 diabetes mellitus Status: Chronic Qualifiers: Diabetes mellitus intermediate insulin use: without ocean transportation intermediary use Diabetes mellitus complication status: with other specified complication Qualified Code(s): E11.69 - Type 2 diabetes mellitus with other specified complication (7) Shortness of breath Status: Chronic (8) ADELAIDE (obstructive sleep apnea) Status: Chronic (9) Stage 2 moderate COPD by GOLD classification Status: Chronic (10) Secondary pulmonary arterial hypertension Status: Chronic (11) Acute respiratory failure with hypoxia and hypercapnia Status: Acute (12) Renal insufficiency Status: Chronic Reason for Consult Date of Consultation: 11/10/18 History of Present Illness: 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 He has been receiving ongoing pulmonary evaluation and care. During this time he has been noted, potentially with changes in his respiratory rate (decreased) and/or O2 levels (decreased) to have evidence of marked sinus bradycardia. The present time he denies any ongoing chest discomfort. His main concern has been shortness of breath and dyspnea. He has also had lower extremity peripheral pitting edema. There has been no report of near syncope or syncope. He has had cardiac enzymes performed. They have demonstrated negative findings. His iliac rhythm has demonstrated sinus rhythm. He had a chest CT scan that suggested from a vascular standpoint a chronic descending thoracic aortic aneurysm/dissection with no significant change compared to a report from 2016 per the radiology report. Also reported concerns of patchy bilateral infiltrates and/or edema. He had a transthoracic echocardiogram performed yesterday. It demonstrated to the left ventricle to appear normal with an estimated LVEF of 65%. His estimated RV systolic pressure was 31 mmHg. [] Past Medical History Allergies/Adverse Reactions: Allergies lisinopril Allergy (Severe, Verified 10/08/18 14:06) Angioedema latanoprost [From Xalatan] Adverse Reaction (Unknown, Verified 11/08/18 20:25) Other precipitation in eyes Sulfa (Sulfonamide Antibiotics) Adverse Reaction (Verified 10/08/18 14:06) Other chapstick Allergy (Uncoded 11/08/18 20:25) swelling Home Medications: Ambulatory Orders Medication Instructions Recorded hydrALAZINE [Apresoline] 50 mg PO TID #90 tab 09/20/15 tramadol 50 mg tablet 50 mg PO TID PRN tab 10/24/17 brimonidine 0.2 % eye drops 1 drp OPHTHALMIC BID ml 05/04/18 dorzolamide 2 %-timolol 0.5 % (PF) 1 drp OPHTHALMIC BID 05/04/18 eye drops ipratropium-albuterol 0.5 mg-3 3 ml INHALATION Q6H PRN ml 05/04/18 mg(2.5 mg base)/3 mL nebulization soln losartan 100 mg tablet 100 mg PO DAILY 05/04/18 omeprazole 20 mg capsule,delayed 20 mg PO DAILY 05/04/18 release labetalol 200 mg tablet 200 mg PO TID tab 05/30/18 tamsulosin 0.4 mg capsule 0.4 mg PO DAILY 05/30/18 furosemide 20 mg tablet 20 mg PO DAILY #30 tab 06/06/18 furosemide 40 mg tablet 40 mg PO BID #180 tab 07/04/18 aspirin 325 mg tablet 325 mg PO DAILY 09/06/18 latanoprost 0.005 % eye drops 1 drp OPHTHALMIC QPM 09/06/18 fluticasone fur. 100 mcg-umeclid 1 inh INHALATION DAILY #60 ea 11/08/18 62.5 mcg-vilant 25 mcg inhalat.powder sitagliptin 50 mg tablet 50 mg PO DAILY #30 tab 11/08/18 Past Medical History (Chronic Problems): Chronic Problems (Last Reviewed 10/08/18 @ 14:06 by Laine Jeronimo) Stage 3 chronic kidney disease (Chronic) Morbid obesity (Chronic) Renal insufficiency (Chronic) Lower extremity weakness (Chronic) Type 2 diabetes mellitus (Chronic) Osteoarthritis (Chronic) Chronic diastolic (congestive) heart failure (Chronic) Hyperlipidemia (Chronic) Essential (primary) hypertension (Chronic) Secondary pulmonary arterial hypertension (Chronic) Stage 2 moderate COPD by GOLD classification (Chronic) Shortness of breath (Chronic) ADELAIDE (obstructive sleep apnea) (Chronic) Surgical History: no surgical history Psychiatric History: No pertinent psych hx - *Family History Maternal Family History: Family History (Last Reviewed 10/08/18 @ 14:06 by Laine Jeronimo) Father Cancer Mother Asthma History Items: Asthma Paternal Family History: Family History (Last Reviewed 10/08/18 @ 14:06 by Laine Jeronimo) Father Cancer Mother Asthma History Items: Cancer Lives: Spouse/ Significant Other Tobacco Use: Cigarettes Alcohol: None Drugs: None Review of Systems - Review of Systems General: Denies: Fever, Night Sweats, Fatigue Cardiovascular: Reports: Shortness of Breath, Shortness of Breath at Rest, Peripheral Edema. Denies: Chest Discomfort, Orthopnea, PND, Palpitations, Lightheadedness, Dizziness, Near Syncope, Syncope Respiratory: Reports: Shortness of Breath Gastrointestinal: Denies: Hematemesis, Hematochezia, Melena Genitourinary: Denies: Dysuria, Hematuria Skin: Denies: Rash Subjectve: This is a 63-year-old -[place] male who is in the ICU wearing BiPAP at this time. Objective: Vital Signs Temp Pulse Resp BP Pulse Ox 97.8 F 65 17 154/87 H 94 11/10/18 11:00 11/10/18 11:00 11/10/18 11:00 11/10/18 11:00 11/10/18 09:10 Oxygen Flow Rate (L/min) 4 Oxygen Delivery Method Bi-pap Weight: 303 lb 12.752 oz Body Mass Index (BMI) 44.8 Intake and Output for Last 24 Hours 11/08/18 11/09/18 11/10/18 23:59 23:59 23:59 Intake Total 50 / 50 2537.91 / 2537.91 1076.67 / 1076.67 Output Total 2125 / 2125 550 / 550 Balance 50 / 50 412.91 / 412.91 526.67 / 526.67 General: Awake, Alert, Oriented x 3, Cooperative HEENT: Atraumatic, Microcephalic, PERRL, EOMI, Sclera Non Icteric Oral: Moist Mucosa Neck: Supple, Good ROM, No JVD Lungs: - - Diminished inspiratory effort and diminished breath sounds bilaterally Cardiovascular: Regular Rhythm, Normal S1, Normal S2 Abdomen: Bowel Sounds Present, Soft, Non Tender Extremities: - - Bilateral lower extremity Dylan wraps Neurological: No Focal Motor or Sensory Deficit Psych/Mental Status: Appropriate 11/10/18 04:05: Sodium 140, Potassium 4.5, Chloride 98, Carbon Dioxide 37.0 H, Anion Gap 5, BUN 27 H, Creatinine 1.34 H, Est GFR (MDRD) Af Amer 69, Est GFR (MDRD) Non-Af 57 L, BUN/Creatinine Ratio 20.1 H, Glucose 134 H, Calcium 8.9, Phosphorus 3.6, Magnesium 2.1, Iron 19 L, TIBC 174 L, Iron Saturation 10.9 L, Ferritin 644 H, Total Bilirubin 0.60 Rhythm: Sinus rhythm/sinus bradycardia EKG: ECHO: As noted above CXR: As noted above Assessment/Plan 1. Sinus bradycardia The patient has had intermittent episodes of sinus bradycardia. There may be concerns that this could be related to changes in his respiratory rate and/or his O2 levels. The present time he will continue to be monitored. He should continue his pulmonary evaluation and care and support. An attempt should be made to avoid rate limiting medications at this time. 2. CHF: Acute diastolic There are concerns that he has acute diastolic mediated CHF superimposed upon his pulmonary disease process. He is undergone noninvasive evaluation. His cardiac enzymes have been negative. He has had a transthoracic echocardiogram. The results are as previously noted. At the present time he will need to continue medical support which would include diuretic therapy. He will also continue his pulmonary support. 3. Descending thoracic aortic aneurysm: Chronic dissection Per his radiology report he has a descending thoracic aortic aneurysm with dissection which is chronic and reported without significant change since 2016. At the moment he will continue to be followed. 4. Hyperlipidemia He will continue risk factor modification medical therapy as deemed appropriate. 5. Hypertension He will continue medical management. Again based on concerns of intermittent marked sinus bradycardia attempt should be made to avoid rate limiting medications. 6. Diabetes mellitus He will continue under evaluation care per internal medicine. 7. Shortness of breath/dyspnea He does present with worsening shortness of breath and dyspnea. It is thought this is related to a combination of his underlying decreased diastolic compliance and diastolic mediated CHF as well as his underlying pulmonary condition. He will need combined cardiopulmonary evaluation and care. 8. Obstructive sleep apnea He will continue evaluation care per internal medicine and pulmonology/critical care medicine. 9. COPD He is reported as having COPD. He will continue evaluation care per internal medicine and pulmonology/critical care medicine. 10. Secondary pulmonary hypertension Based upon his recent echocardiogram is estimated RV systolic pressure was 31 mmHg which would be mildly elevated. He will need continued medical therapy and pulmonary support. 11. Respiratory failure He was diagnosed with acute respiratory failure. Again this may be a combination of his cardiopulmonary condition. He was placed in the ICU. He will continue evaluation care by internal medicine, pulmonology, and cardiology as deemed appropriate. 12. Renal insufficiency He does have an element of chronic renal insufficiency. He will continue medical management. His renal function will have to be followed as he goes to medical therapy including diuretic therapy. Comment: The patient's case was discussed and reviewed with the patient and Dr. Altamirano. This note was generated using a voice recognition system and there may be incorrect words, spelling or punctuation that were not noted when reviewing the office note prior to saving.
[2018-11-10] MEDS: Dorzolamide HCL/Timolol 10 ml Bottle 1 DRP OPHTHALMIC ×2 (14:25→21:56)
[2018-11-10] MEDS: BRIMONIDINE 0.2% 5ML BOTTLE 1 DRP OPHTHALMIC ×2 (14:25→21:56)
[2018-11-10 14:56] LABS: Vancomycin, Trough Level 17.9 ug/mL (5.0-15.0)
[2018-11-10 16:41] LABS: Bedside Glucose 162 mg/dL (70-110)
[2018-11-10] MEDS: Insulin Lispro 100 UNIT/ML INSULN.PEN SC (17:28)
[2018-11-10 21:15] LABS: M R Staph aureus DNA By PCR Negative (Negative); Probe Check PASS; Specimen Processing Control PASS
[2018-11-10 21:26] LABS: Bedside Glucose 126 mg/dL (70-110)
[2018-11-10] MEDS: Latanoprost 0.005% 1 Bottle 1 DRP OPHTHALMIC (22:21)
[2018-11-11] VITALS (35 sets, daily range): BP systolic 137–190; BP diastolic 65–108; PULSE 45–101; RESP 12–28; TEMP 35.9–38; O2SAT 85–100
[2018-11-11] MEDS: Acetaminophen 325 MG Tablet 650 MG PO ×2 (02:10→17:35)
[2018-11-11] MEDS: 0.9% NaCl Peripheral Flush Adult/Peds IV ×2 (02:11→05:07)
[2018-11-11] MEDS: CHLORHEXIDINE GLUC 2% CLOTH 1 EACH TOWELETTE TOPICAL (02:14)
[2018-11-11 04:56] LABS: Bedside Glucose 175 mg/dL (70-110)
[2018-11-11] MEDS: hydrALAZINE 50 MG Tablet PO ×2 (04:57→14:20)
[2018-11-11] MEDS: Labetalol 200 MG Tablet PO (04:57)
--- NOTE | 2018-11-11 05:13 | NURSING ---
Attempted break off of bipap on 4L NC. Within a couple minutes pt. was SOB and could not talk in a full sentence. Sats down to 82%. Placed pt. back on bipap 45% and within 5 minutes sats up to 90%.
--- NOTE | 2018-11-11 06:52 | PN_ITS ---
Subjective: The patient was seen and examined at the bedside this morning. Events from the last 24 hours have been reviewed. The patient is currently afebrile, hemodynamically stable and maintaining appropriate oxygen saturations on BiPAP. The patient did have one episode of bradycardia overnight. Per nursing report, the patient was able to be weaned from BiPAP on 2 separate occasions yesterday but became short of breath and hypoxemic requiring the reinitiation of Pap therapy. The patient is currently documented to be overall net +1.6 L for the admission. Objective: The patient's most recent lab work, culture data and imaging studies have all been personally reviewed. CTA chest revealed no evidence for PE. However, there was upper lobe predominant groundglass changes, right greater than left. Surface echocardiogram revealed normal LV size and function with an ejection fraction of 65%. Right ventricular systolic pressure was estimated to be 31 mmHg. Respiratory viral panel was negative. Strep and urine Legionella antigens were negative. Expectorated sputum cultures pending. General: Alert, Cooperative, No apparent distress HEENT: Atraumatic, PERRLA, Normocephalic Oral: No Gingival or Mucosal Lesions/ Ulcerations Neck: Supple, No Nodes, Trachea Midline Lungs: No rhonchi, No wheeze, No rales, Diminished Cardiovascular: Regular rate, Regular Rhythm, Normal S1, Normal S2, - - Periods of bradycardia and sinus pause this morning. Abdomen: Bowel Sounds Present, Soft, Non Tender, Obese Extremities: No clubbing, No cyanosis, Edema Skin: - - Chronic lower extremity wound Musculoskeletal: No Tenderness to Palpation of Joints or Extremities Lymphatic: No Cervical, Supraclavicular, or Inguinal Adenopathy Neurological: Cranial nerves II-XII grossly intact, Neuro grossly intact Psych/Mental Status: Alert and oriented to time, place, person, mood and affect Vital Signs Temp Pulse Resp BP Pulse Ox 98.1 F 62 22 H 149/88 H 94 11/11/18 04:00 11/11/18 06:00 11/11/18 06:00 11/11/18 06:00 11/11/18 06:00 Oxygen Flow Rate (L/min) 4 Oxygen Delivery Method Bi-pap Weight: 302 lb 11.115 oz Body Mass Index (BMI) 44.8 Intake and Output for Last 24 Hours 11/09/18 11/10/18 11/11/18 23:59 23:59 23:59 Intake Total 2537.91 / 2537.91 2528.34 / 2528.34 718.33 / 718.33 Output Total 2125 / 2125 1650 / 1650 500 / 500 Balance 412.91 / 412.91 878.34 / 878.34 218.33 / 218.33 Labs (Last 48 Hours) 11/09/18 11/09/18 11/09/18 06:00 07:54 12:15 Retic Count Immature Retic Fraction Retic Hgb Equivalent Sodium Potassium Chloride Carbon Dioxide Anion Gap BUN Creatinine Estim Creat Clear Calc Est GFR (MDRD) Af Amer Est GFR (MDRD) Non-Af BUN/Creatinine Ratio Glucose Calcium Phosphorus Magnesium Iron TIBC Iron Saturation Ferritin Total Bilirubin AST ALT Alkaline Phosphatase B-Natriuretic Peptide 69.4 Total Protein Albumin Globulin Albumin/Globulin Ratio Vancomycin Trough MRSA (PCR) POC Glucose 98 176 H 11/09/18 11/09/18 11/10/18 16:50 20:59 03:34 Retic Count Immature Retic Fraction Retic Hgb Equivalent Sodium Potassium Chloride Carbon Dioxide Anion Gap BUN Creatinine Estim Creat Clear Calc Est GFR (MDRD) Af Amer Est GFR (MDRD) Non-Af BUN/Creatinine Ratio Glucose Calcium Phosphorus Magnesium Iron TIBC Iron Saturation Ferritin Total Bilirubin AST ALT Alkaline Phosphatase B-Natriuretic Peptide Total Protein Albumin Globulin Albumin/Globulin Ratio Vancomycin Trough MRSA (PCR) POC Glucose 131 H 252 H 143 H 11/10/18 11/10/18 11/10/18 04:05 04:05 11:22 Retic Count 0.87 Immature Retic Fraction 14.00 Retic Hgb Equivalent 24.4 L Sodium 140 Potassium 4.5 Chloride 98 Carbon Dioxide 37.0 H Anion Gap 5 BUN 27 H Creatinine 1.34 H Estim Creat Clear Calc 55.69 Est GFR (MDRD) Af Amer 69 Est GFR (MDRD) Non-Af 57 L BUN/Creatinine Ratio 20.1 H Glucose 134 H Calcium 8.9 Phosphorus 3.6 Magnesium 2.1 Iron 19 L TIBC 174 L Iron Saturation 10.9 L Ferritin 644 H Total Bilirubin 0.60 AST 21 ALT 34 Alkaline Phosphatase 87 B-Natriuretic Peptide Total Protein 7.5 Albumin 2.6 L Globulin 4.9 H Albumin/Globulin Ratio 0.5 L Vancomycin Trough MRSA (PCR) POC Glucose 101 11/10/18 11/10/18 11/10/18 14:15 16:00 16:37 Retic Count Immature Retic Fraction Retic Hgb Equivalent Sodium Potassium Chloride Carbon Dioxide Anion Gap BUN Creatinine Estim Creat Clear Calc Est GFR (MDRD) Af Amer Est GFR (MDRD) Non-Af BUN/Creatinine Ratio Glucose Calcium Phosphorus Magnesium Iron TIBC Iron Saturation Ferritin Total Bilirubin AST ALT Alkaline Phosphatase B-Natriuretic Peptide Total Protein Albumin Globulin Albumin/Globulin Ratio Vancomycin Trough 17.9 H MRSA (PCR) Negative POC Glucose 162 H 11/10/18 11/11/18 21:08 04:39 Retic Count Immature Retic Fraction Retic Hgb Equivalent Sodium Potassium Chloride Carbon Dioxide Anion Gap BUN Creatinine Estim Creat Clear Calc Est GFR (MDRD) Af Amer Est GFR (MDRD) Non-Af BUN/Creatinine Ratio Glucose Calcium Phosphorus Magnesium Iron TIBC Iron Saturation Ferritin Total Bilirubin AST ALT Alkaline Phosphatase B-Natriuretic Peptide Total Protein Albumin Globulin Albumin/Globulin Ratio Vancomycin Trough MRSA (PCR) POC Glucose 126 H 175 H Microbiology 11/09/18 08:00 Sputum, Expectorated/Coughed Gram Stain - Final 11/09/18 08:00 Sputum, Expectorated/Coughed Respiratory Culture - Preliminary Appears to be normal respiratory bernabe. Further studies to follow. 11/09/18 01:00 Wound - Leg, Right Gram Stain - Final 11/09/18 01:00 Wound - Leg, Right Wound Culture - Preliminary Streptococcus agalactiae (B) Staphylococcus species GNR Poss Pseudomonas sp Gram negative smiley Staphylococcus aureus 11/09/18 05:45 Mucosa - Nose Respiratory Panel (PCR) - Final Clinical Impression(s) from Imaging Studies Chest CTA 11/08/18 20:38 IMPRESSION: No evidence of pulmonary embolism. 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 Stable dating back to 2016. Patchy airspace disease/infiltrate in the upper lobes. Could represent infection or edema. Stable cardiomegaly Electronically Signed: Andrew Alejo DO at 21:51 EDT Tel , Service support , Chest X-Ray 11/09/18 05:55 IMPRESSION: Cardiomegaly and CHF. Electronically Signed: Michael Gaytan, at 8:53 EDT , Service support , Medical Necessity - Tobacco Use Tobacco Use: Cigarettes Assessment/Plan All Active Problems (Last Reviewed 10/08/18 @ 14:06 by Laine Jeronimo) Acute respiratory failure with hypoxia and hypercapnia (Acute) Bilateral pulmonary infiltrates on CXR (Acute) Bradycardia (Acute) CHF (congestive heart failure) (Acute) Thoracic aortic aneurysm, ruptured (Acute) Ulcer of right lower extremity (Acute) Chronic cutaneous venous stasis ulcer (Resolved) RECOMMENDATIONS: 1. Continue antibiotics as ordered. 2. Continue BiPAP with naps and nightly. 3. Discontinue labetalol. 4. Transition from p.o. to IV Lasix regimen. 5. Continue bronchodilators. 6. Wean supplemental oxygen to maintain saturations at or above 90%. 7. Encourage incentive spirometer use and mobilize patient as tolerated. 8. Obtain repeat plain film chest x-ray IMPRESSIONS: 1. Acute on chronic combined respiratory failure The patient is supposed to be utilizing 3 L/min of supplemental oxygen with exertion. However, he readily admits that he is not utilizing the supplemental O2 as prescribed. He did have upper lobe predominant groundglass changes on CT, which could be related to an underlying pulmonary infectious process. I do suspect that his presenting dyspnea is likely a consequence of his noncompliance with supplemental O2 coupled with pneumonia and decompensated diastolic heart failure. The patient remains on appropriate antimicrobial therapy. Given that he has been unable to be weaned from BiPAP, will transition from p.o. to IV Lasix today. Wean supplemental oxygen as tolerated. 2. Heart failure with preserved ejection fraction/pulmonary hypertension/int ermittent bradycardia Repeat surface echocardiogram was largely unchanged from previous without evidence of RV dysfunction or significant pulmonary hypertension. Cardiology is currently following due to periods of bradycardia. Recommend discontinuation of labetalol. The patient will be transitioned as noted above from p.o. to IV diuretic regimen. 3. Chronic COPD/obstructive sleep apnea The patient regularly follows with Dr. Daugherty on an outpatient basis. Recommend continuing bronchodilators as ordered. Pap therapy will be continued. 4. Hypertension/hyperlipidemia/anemia/chronic kidney disease/obesity/diabetes Complicates care, management, recovery and prognosis. Continue sliding scale insulin coverage. Physical therapy to work with the patient. This note was generated with [employer] software. It may contain incorrect words, spelling, and punctuation that were not noted in checking the note before signing. Code Visit Inpatient E&M: 93194 Subs Hosp L3
--- NOTE | 2018-11-11 06:54 | RAD_ITS ---
STUDY: X-RAY CHEST REASON FOR EXAM: Male, 63 years old. Shortness of breath. Respiratory failure. TECHNIQUE: Single frontal view of the chest. COMPARISON: November 09, 2018 FINDINGS: Patchy opacity at the left base unchanged. Stable diffuse interstitial pattern with small bilateral effusions. Marked cardiomegaly unchanged. Normal mediastinum and ekta. Normal visualized pulmonary arteries. Marked aortic tortuosity unchanged. Normal visualized thoracic spine. Normal visualized ribs, clavicles, and shoulders. There is no demonstrated abnormality of the visualized soft tissue structures of the upper abdomen. RAD/Chest 1 View (Portable) IMPRESSION: Stable appearance of the chest with no acute superimposed finding. Electronically Signed: Onel Dorado MD at 10:11 EDT , Service support ,
[2018-11-11] MEDS: Budesonide Respules 0.5 MG/2 ML AMPUL.NEB. INHALATION ×2 (07:14→18:38)
[2018-11-11] MEDS: Ipratropium/Albuterol Sulfate 3 ML AMPUL.NEB INHALATION ×3 (07:14→18:38)
[2018-11-11 07:24] LABS: Hematocrit 32.7 % (40-54); Hemoglobin 9.9 g/dL (13.0-16.5); Mean Corp Hgb Conc 30.3 g/dL (32-36); Mean Corpuscular Hgb 28.4 pg (27.0-32.0); Mean Platelet Vol. 10.3 fl (6.2-12.0); Platelet Count 232 K/mm3 (150-450); RBC Distribution Width CV 14.8 % (11.6-14.6); RBC Distribution Width SD 51.4 fl (35.1-43.9); Red Blood Count 3.48 M/mm3 (4.6-6.2); White Blood Count 9.3 K/mm3 (4.4-11.0)
--- NOTE | 2018-11-11 08:09 | PN_ITS ---
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 following an influenza vaccine with some persistent deficits who was admitted to the hospital with BL upper lobe pneumonia and acute on chronic respiratory failure requiring BIPAP. He was started on Vanco and Zosyn. He was initially thought to have cellulitis of the RLE but the wound does not look infected. All events of the past 24 hours been reviewed. Afebrile since admission Has been having severe bradycardia into the 's and had short periods of asystole today. 3.5 second pause last night. Labetalol has been stopped. Blood pressures have been mildly increased Wore the BIPAP most of the day yesterday and through the night. Pulse ox is 92 to 95% on a 45% FiO2 on BiPAP 28/08 Labs, cultures and imaging has been personally reviewed. Hemoglobin is stable at 9.9. Platelets are within normal limits. The white blood cell count is 9.3, down from 10.1 at admission. Troponin today is less than 0.015. Blood sugars are well controlled. CXR shows increasing consolidation in the left base with CHF? vs worsening Pneumonia Wound culture is polymicrobial - this is colonization and not infection and no need to treat - Physical Exam General: Alert, Oriented x3, Cooperative, No apparent distress, Well developed, Well nourished, - - sitting in the recliner watching the tennis match HEENT: Atraumatic, PERRLA, EOMI, Normocephalic Oral: Moist Mucosa Neck: Supple Lungs: Clear to auscultation, Diminished Cardiovascular: Regular Rhythm, Normal S1, Normal S2, Bradycardic, No rub noted, No Gallop, - - telemetry with bradycardia, pauses and short periods of asystole Abdomen: Bowel Sounds Present, Soft, Non Tender, Non-Distended, Obese, - - the urine is bloody Extremities: No clubbing, No cyanosis, Edema Skin: No rashes, - - the wound on the RLE is superficial with no surrounding erythema and no purulent DC and no odor Neurological: - - no focal dificits Psych/Mental Status: Normal Affect, Appropriate Vital Signs Temp Pulse Resp BP Pulse Ox 98.1 F 65 20 H 147/73 H 92 11/11/18 04:00 11/11/18 07:14 11/11/18 07:14 11/11/18 07:00 11/11/18 07:14 Oxygen Flow Rate (L/min) 4 Oxygen Delivery Method Bi-pap Weight: 302 lb 11.115 oz Body Mass Index (BMI) 44.8 Intake and Output for Last 24 Hours 11/09/18 11/10/18 11/11/18 23:59 23:59 23:59 Intake Total 2537.91 / 2537.91 2528.34 / 2528.34 718.33 / 718.33 Output Total 2125 / 2125 1650 / 1650 500 / 500 Balance 412.91 / 412.91 878.34 / 878.34 218.33 / 218.33 Microbiology Past 72 Hours 11/09/18 08:00 Gram Stain - Final Sputum, Expectorated/Coughed Respiratory Culture - Preliminary Appears to be normal respiratory bernabe. Further studies to follow. 11/09/18 01:00 Gram Stain - Final Wound - Leg, Right Wound Culture - Preliminary Streptococcus agalactiae (B) Staphylococcus species GNR Poss Pseudomonas sp Gram negative smiley Staphylococcus aureus 11/09/18 05:45 Respiratory Panel (PCR) - Final Mucosa - Nose 11/09/18 00:50 Streptococcus pneumoniae Antigen (M - Final Urine, Clean Catch 11/09/18 00:50 Legionella Antigen - Final Urine, Clean Catch Laboratory Tests Past 24 Hrs 11/10/18 11/10/18 11/11/18 14:15 16:00 06:50 WBC 9.3 RBC 3.48 L Hgb 9.9 L Hct 32.7 L MCV 94.0 MCH 28.4 MCHC 30.3 L RDW Std Deviation 51.4 H RDW Coeff of Johanna 14.8 H Plt Count 232 MPV 10.3 Troponin I B-Natriuretic Peptide Vancomycin Trough 17.9 H MRSA (PCR) Negative 11/11/18 11/11/18 06:50 06:50 WBC RBC Hgb Hct MCV MCH MCHC RDW Std Deviation RDW Coeff of Johanna Plt Count MPV Troponin I < 0.015 B-Natriuretic Peptide Pending Vancomycin Trough MRSA (PCR) POC Glucose 11/11/18 11/10/18 11/10/18 04:39 21:08 16:37 POC Glucose 175 H 126 H 162 H 11/10/18 11:22 POC Glucose 101 Medical Necessity - Tobacco Use Tobacco Use: Cigarettes Assessment/Plan All Active Problems (Last Reviewed 10/08/18 @ 14:06 by Laine Jeronimo) Acute respiratory failure with hypoxia and hypercapnia (Acute) Bilateral pulmonary infiltrates on CXR (Acute) Bradycardia (Acute) CHF (congestive heart failure) (Acute) Thoracic aortic aneurysm, ruptured (Acute) Ulcer of right lower extremity (Acute) Chronic cutaneous venous stasis ulcer (Resolved) Antibiotics day #4-Zosyn...VAnco discontinued because the wound on the RLE is not infected Impressions 1. Acute on chronic combined respiratory failure - non-compliant with supplemental oxygen on a routine basis at home. Continue BiPAP anytime he is sleeping. Pressures increased by Dr. Ruth and he is feeling much better. He is on CPAP of 12 at home and this may not be enough. Titrate the O2 to maintain his oxygen saturation between 89 and 93%. Continue broad-spectrum antimicrobial therapy even though he is afebrile with a normal white blood cell count. Await the sputum culture final report in light of upper lobe groundglass appearance on CT of the chest. Continue aerosolized budesonide and bronchodilators 2. Chronic diastolic dysfunction with preserved ejection fraction-intravenous fluids discontinued. Transitioned to Lasix 40 mg IV twice daily. 3. N/N anemia with an increased RDW std deviation - why is he anemic if he is chronically hypoxic and does not wear his oxygen on a routine basis? Iron studies are consistent with iron deficiency in this pt with CRF, transaferrin saturation is <20% 4. Vitamin D deficiency - started on a supplement 5. Hypogonadism - will defer to Dr. Pedersen to treat this 6. Chronic renal failure stage III - stable 7. Diabetes mellitus type 2-controlled, hemoglobin A1c within the past month was 6.8% 8. Venous stasis ulcer of the right lower extremity-nonhealing. Using SurePress wraps daily. No evidence of infection.....polymicrobial results on the wound culture likely represent contamination/colonization 9. Morbid obesity 10. Obstructive sleep apnea-compliant with CPAP usually 4 hours a night 11. Hypertension-Increase the dose of the Hydralazine to better control the BP 12. BPH continue Flomax 13. severe bradycardia with asystole for brief periods - Labetalol discontinued on 11/11 14. dysuria - UA and culture ordered. Prieto was inserted today and he has hem aturia. Code Visit Inpatient E&M: 28084 Subs Hosp L3
--- NOTE | 2018-11-11 08:32 | PN.CARD_ITS ---
Subjectve: The patient is awake and alert with no acute complaints. However, when the patient becomes sleepy his heart rate is noted to slow and become bradycardic with prolonged pauses of approximately 6 seconds without obvious hemodynamic compromise. Objective: Vital Signs Temp Pulse Resp BP Pulse Ox 98.1 F 65 20 H 147/73 H 92 11/11/18 04:00 11/11/18 07:14 11/11/18 07:14 11/11/18 07:00 11/11/18 07:14 Oxygen Flow Rate (L/min) 4 Oxygen Delivery Method Bi-pap Weight: 302 lb 11.115 oz Body Mass Index (BMI) 44.8 Intake and Output for Last 24 Hours 11/09/18 11/10/18 11/11/18 23:59 23:59 23:59 Intake Total 2537.91 / 2537.91 2528.34 / 2528.34 718.33 / 718.33 Output Total 2125 / 2125 1650 / 1650 500 / 500 Balance 412.91 / 412.91 878.34 / 878.34 218.33 / 218.33 General: Awake, Alert, Oriented x 3, Cooperative, No Acute Distress, Obese HEENT: Atraumatic, Normocephalic, PERRL, EOMI, Sclera Non Icteric Neck: Supple, Good ROM, No JVD Lungs: Diminished Jadiel Bases - Left > right Cardiovascular: Regular Rhythm, Normal S1, Normal S2 Abdomen: Bowel Sounds Present, Soft, Non Tender Extremities: - - Bilateral leg wraps Psych/Mental Status: Appropriate 11/11/18 06:50: WBC 9.3, RBC 3.48 L, Hgb 9.9 L, Hct 32.7 L, MCV 94.0, MCH 28.4, MCHC 30.3 L, Plt Count 232, MPV 10.3 11/11/18 06:50: Troponin I < 0.015 Rhythm: sinus rhythm; episodes of PSVT and marked sinus bradycardia / prolonged pauses CXR: preliminary evaluation: bilateral pulmonary infiltrates / possible edema; please see official report Medical Necessity - Tobacco Use Tobacco Use: Cigarettes Assessment/Plan 1. Sinus bradycardia/PSVT The patient has had intermittent episodes of sinus bradycardia / sinus pauses. He has also been noted to have episodes of a PSVT. He had additional marked sinus bradycardia / prolonged pauses this AM s/p recei ving 2 doses of oral labetalol 200 mg (last night / early AM). At the present time he will continue to be monitored. He should continue his pulmonary evaluation and care and support. At the present time, rate limiting medications are on HOLD. If he continues with bradydysrhythmias despite holding rate limiting medications then he will need to be transferred to a tertiary care center for EP evaluation for consideration for PPM. If he needs the labetalol for his hypertension, then he should be transferred to a tertiary care center for EP consideration for PPM placement to allow him to ta ke rate limiting medications without becoming bradycardic, etc. 2. CHF: Acute diastolic There are concerns that he has acute diastolic mediated CHF superimposed upon his pulmonary disease process. At the present time he will need to continue medical support which would include diuretic therapy. He will also continue his pulmonary support. 3. Descending thoracic aortic aneurysm: Chronic dissection Per his radiology report he has a descending thoracic aortic aneurysm with dissection which is chronic and reported without significant change since 2016. At the moment he will continue to be followed. 4. Hyperlipidemia He will continue risk factor modification medical therapy as deemed appropriate. 5. Hypertension He will continue medical management. Again based on concerns of intermittent marked sinus bradycardia attempt should be made to avoid rate limiting medications. 6. Diabetes mellitus He will continue under evaluation care per internal medicine. 7. Shortness of breath/dyspnea He does present with worsening shortness of breath and dyspnea. It is thought this is related to a combination of his underlying decreased diastolic compliance and diastolic mediated CHF as well as his underlying pulmonary condition. He will need combined cardiopulmonary evaluation and care. 8. Obstructive sleep apnea He will continue evaluation care per internal medicine and pulmonology/critical care medicine. 9. COPD He is reported as having COPD. He will continue evaluation care per internal medicine and pulmonology/critical care medicine. 10. Secondary pulmonary hypertension Based upon his recent echocardiogram is estimated RV systolic pressure was 31 mmHg which would be mildly elevated. He will need continued medical therapy and pulmonary support. 11. Respiratory failure He was diagnosed with acute respiratory failure. Again this may be a combination of his cardiopulmonary condition. He was placed in the ICU. He will continue evaluation care by internal medicine, pulmonology, and cardiology as deemed appropriate. At the present time, based upon his ongoing pulmonary disease process, he is going to undergo IV diuresis. Hopefully this will assist with his pulmonary process. 12. Renal insufficiency He does have an element of chronic renal insufficiency. He will continue medical management. His renal function will have to be followed as he goes to medical therapy including diuretic therapy. Comment: The patient's case was discussed and reviewed with the patient, Dr. Altamirano, and Dr. Ruth. This note was generated using a voice recognition system and there may be incorrect words, spelling or punctuation that were not noted when reviewing the office note prior to saving.
[2018-11-11 08:52] LABS: T4 Free Direct 1.23 ng/dL (0.76-1.46)
[2018-11-11 08:57] LABS: BNP,B-Type NATRIURETIC PEPTIDE 46.4 pg/mL (0-100)
[2018-11-11] MEDS: Losartan Potassium 100 MG Tablet PO (09:51)
[2018-11-11] MEDS: Tamsulosin HCl 0.4 MG Capsule PO (09:51)
[2018-11-11] MEDS: Enoxaparin 40 MG/0.4 ML Syringe SC (09:51)
[2018-11-11] MEDS: Pantoprazole Sodium 20 MG Tablet PO (09:51)
[2018-11-11] MEDS: Aspirin 325 MG Tablet PO (09:51)
[2018-11-11] MEDS: BRIMONIDINE 0.2% 5ML BOTTLE 1 DRP OPHTHALMIC ×2 (09:52→21:48)
[2018-11-11] MEDS: Dorzolamide HCL/Timolol 10 ml Bottle 1 DRP OPHTHALMIC ×2 (09:52→21:57)
[2018-11-11] MEDS: Furosemide 40 MG/4 ML Vial IV ×2 (09:53→17:26)
[2018-11-11 11:41] LABS: Bedside Glucose 143 mg/dL (70-110)
[2018-11-11 17:51] LABS: Bedside Glucose 148 mg/dL (70-110)
[2018-11-11] MEDS: traMADol 50 MG Tablet PO (21:36)
[2018-11-11] MEDS: hydrALAZINE 50 MG Tablet 75 MG PO (21:37)
[2018-11-11] MEDS: Latanoprost 0.005% 1 Bottle 1 DRP OPHTHALMIC (21:43)
[2018-11-11] MEDS: Insulin Lispro 100 UNIT/ML INSULN.PEN SC (21:43)
[2018-11-11] MEDS: Phenazopyridine 95 MG Tablet PO (21:47)
[2018-11-11] MEDS: Oxybutynin 5 MG Tablet PO (22:09)
[2018-11-11] MEDS: HYDROcodone Bitartrate/Apap 5/325 Tablet PO (22:47)
[2018-11-11 22:51] LABS: Bedside Glucose 192 mg/dL (70-110)
[2018-11-11 23:13] LABS: Bacteria 0 SEEN /hpf (None Seen); Mucous, Urine 0 SEEN /hpf (<or=2+); Squamous Epithelial Cells - UA 0 SEEN /hpf (0-5)
[2018-11-11 23:20] LABS: Color, Urine Red (Yellow); Glucose, Dipstick Normal (Normal); Ketone-Dipstick Negative (Negative); Leukocyte Esterase-Dipstick 100 /ul (Negative); Nitrite-Dipstick Negative (Negative); Occult Blood-Urine 250 /ul (Negative); Protein-Dipstick 100 mg/dl (Negative); Urine Bilirubin Dipstick Negative (Negative); Urine Clarity Sl. Cloudy (Clear); Urine Urobilinogen Normal (Normal); Urine pH 6.5 (5.0 - 8.0)
[2018-11-11 23:25] LABS: Red Blood Cells-Urine > 100 SEEN /hpf (0-5)
[2018-11-11 23:26] LABS: White Blood Cells 10-25 SEEN /hpf (0-5)
[2018-11-12] VITALS (44 sets, daily range): BP systolic 109–185; BP diastolic 67–131; PULSE 48–179; RESP 12–28; TEMP 36.1–36.8; O2SAT 88–100
--- NOTE | 2018-11-12 00:08 | NURSING ---
Pt placed call light to request that F/C be removed, these bladder spasms are not going away;but getting worse. F/C removed after 10ml balloon deflated. A very lg blood clot followed catheter extraction. Pt's benigno area cleaned and handed urinal to attempt to void. Pt informed of blood clot presence and discussed possible bladder irrigation w/sanchez reinsertion in the event that he can not void into urinal. Pt is agreeable to discussed plan.
[2018-11-12] MEDS: LORazepam 2 MG/ML Syringe 0.5 MG IV ×2 (01:34→08:34)
--- NOTE | 2018-11-12 06:25 | NURSING ---
18Fr F/C removed and 24Fr 3-way cath placed for CBI per new order ;all explained and acceptable to pt. CBI connected for immediate return of red-colored urine w/lg clots.
[2018-11-12 06:36] LABS: Hematocrit 33.9 % (40-54); Hemoglobin 10.3 g/dL (13.0-16.5); Mean Corp Hgb Conc 30.4 g/dL (32-36); Mean Corpuscular Hgb 28.6 pg (27.0-32.0); Mean Corpuscular Volume 94.2 fL (80-94); Platelet Count 252 K/mm3 (150-450); RBC Distribution Width CV 14.7 % (11.6-14.6); RBC Distribution Width SD 50.8 fl (35.1-43.9)
[2018-11-12] MEDS: hydrALAZINE 50 MG Tablet 75 MG PO (06:36)
[2018-11-12] MEDS: Phenazopyridine 95 MG Tablet PO ×3 (06:36→21:16)
[2018-11-12 06:49] LABS: Anion Gap 5 (5-15); BUN 22 mg/dL (7-18); BUN/Creat Ratio 17.5 RATIO (10-20); Chloride 95 mmol/L (98-107); Creatinine, Serum 1.26 mg/dL (0.70-1.30); EST Glomerular Filtration Rate 61 mL/min (>60); Est Glom Filt Rate - Afr Amer 74 mL/min (>60); Estimated Creatinine Clearance 59.23 ml/min; Glucose 119 mg/dL (74-106); Potassium 3.6 mmol/L (3.5-5.1); Sodium Level 142 mmol/L (136-145)
[2018-11-12] MEDS: Budesonide Respules 0.5 MG/2 ML AMPUL.NEB. INHALATION ×2 (07:23→18:54)
[2018-11-12] MEDS: Ipratropium/Albuterol Sulfate 3 ML AMPUL.NEB INHALATION ×3 (07:23→18:54)
--- NOTE | 2018-11-12 07:28 | NURSING ---
Pt c/o increasing bladder spasms CBI infusion rate reduced as urine output is light pink, no clots present.
[2018-11-12] MEDS: HYDROcodone Bitartrate/Apap 5/325 Tablet PO (07:39)
--- NOTE | 2018-11-12 08:37 | PN_ITS ---
Subjective: Patient had requested Prieto placement last evening secondary to IV Lasix and incontinence. Overnight, patient has had 4 attempts at Prieto catheter secondary to hematuria. Last Prieto placement was for CBI and does not appear to be draining. Have been notified that urology is not available this morning. Patient is reporting significant bladder spasms, but states my breathing is doing fine. Patient has had some bowel movements overnight. Patient is reporting no change in lower extremity pain. Patient did receive a dose of Ativan overnight secondary to bladder spasms. General: Alert, Oriented x3, - - Mild distress. Morbidly obese. Starting to become more agitated. HEENT: Atraumatic, PERRLA, EOMI, Normocephalic, - - No scleral icterus or injection noted. CPAP in place. Oral: Moist Mucosa, No Gingival or Mucosal Lesions/ Ulcerations Neck: Supple, No JVD, No Nodes, Trachea Midline Lungs: No rhonchi, No wheeze, No rales, Diminished, - - Symmetric expansion. No dullness to percussion. Cardiovascular: Regular rate, Regular Rhythm, Normal S1, Normal S2, No murmurs, No rub noted, No Gallop Abdomen: Bowel Sounds Present, Soft, Tender - Suprapubic with guarding. No rebound noted. Extremities: No cyanosis, Clubbing, Edema Skin: Ulcer/ Wound - Lower extremities are wrapped. No saturation of the bandage appreciated. Musculoskeletal: No Tenderness to Palpation of Joints or Extremities Lymphatic: No Cervical, Supraclavicular, or Inguinal Adenopathy Neurological: Cranial nerves II-XII grossly intact, Neuro grossly intact, Motor Exam 5/5 strength throughout Psych/Mental Status: Anxious, Impulsive, Restless Vital Signs Temp Pulse Resp BP Pulse Ox 36.8 C 78 21 H 184/108 H 99 11/12/18 00:00 11/12/18 07:24 11/12/18 07:24 11/12/18 07:00 11/12/18 07:24 Oxygen Flow Rate (L/min) 4 Oxygen Delivery Method Bi-pap Weight: 134.1 kg Body Mass Index (BMI) 44.8 Intake and Output for Last 24 Hours 11/10/18 11/11/18 11/12/18 23:59 23:59 23:59 Intake Total 2528.34 / 2528.34 1528.33 / 2378.33 1650 / 1650 Output Total 1650 / 1650 1100 / 1450 1350 / 1350 Balance 878.34 / 878.34 428.33 / 928.33 300 / 300 Labs (Last 48 Hours) 11/10/18 11/10/18 11/10/18 11:22 14:15 16:00 WBC RBC Hgb Hct MCV MCH MCHC RDW Std Deviation RDW Coeff of Johanna Plt Count MPV Sodium Potassium Chloride Carbon Dioxide Anion Gap BUN Creatinine Estim Creat Clear Calc Est GFR (MDRD) Af Amer Est GFR (MDRD) Non-Af BUN/Creatinine Ratio Glucose Calcium Troponin I B-Natriuretic Peptide Free T4 Urine Color Urine Clarity Urine pH Ur Specific [place] Urine Protein Urine Glucose (UA) Urine Ketones Urine Occult Blood Urine Nitrite Urine Bilirubin Urine Urobilinogen Ur Leukocyte Esterase Urine RBC Urine WBC Ur Squamous Epith Cells Urine Bacteria Urine Mucus Vancomycin Trough 17.9 H MRSA (PCR) Negative POC Glucose 101 11/10/18 11/10/18 11/11/18 16:37 21:08 04:39 WBC RBC Hgb Hct MCV MCH MCHC RDW Std Deviation RDW Coeff of Johanna Plt Count MPV Sodium Potassium Chloride Carbon Dioxide Anion Gap BUN Creatinine Estim Creat Clear Calc Est GFR (MDRD) Af Amer Est GFR (MDRD) Non-Af BUN/Creatinine Ratio Glucose Calcium Troponin I B-Natriuretic Peptide Free T4 Urine Color Urine Clarity Urine pH Ur Specific [place] Urine Protein Urine Glucose (UA) Urine Ketones Urine Occult Blood Urine Nitrite Urine Bilirubin Urine Urobilinogen Ur Leukocyte Esterase Urine RBC Urine WBC Ur Squamous Epith Cells Urine Bacteria Urine Mucus Vancomycin Trough MRSA (PCR) POC Glucose 162 H 126 H 175 H 11/11/18 11/11/18 11/11/18 06:50 06:50 06:50 WBC 9.3 RBC 3.48 L Hgb 9.9 L Hct 32.7 L MCV 94.0 MCH 28.4 MCHC 30.3 L RDW Std Deviation 51.4 H RDW Coeff of Johanna 14.8 H Plt Count 232 MPV 10.3 Sodium Potassium Chloride Carbon Dioxide Anion Gap BUN Creatinine Estim Creat Clear Calc Est GFR (MDRD) Af Amer Est GFR (MDRD) Non-Af BUN/Creatinine Ratio Glucose Calcium Troponin I < 0.015 B-Natriuretic Peptide 46.4 Free T4 Urine Color Urine Clarity Urine pH Ur Specific [place] Urine Protein Urine Glucose (UA) Urine Ketones Urine Occult Blood Urine Nitrite Urine Bilirubin Urine Urobilinogen Ur Leukocyte Esterase Urine RBC Urine WBC Ur Squamous Epith Cells Urine Bacteria Urine Mucus Vancomycin Trough MRSA (PCR) POC Glucose 11/11/18 11/11/18 11/11/18 06:50 11:35 17:21 WBC RBC Hgb Hct MCV MCH MCHC RDW Std Deviation RDW Coeff of Johanna Plt Count MPV Sodium Potassium Chloride Carbon Dioxide Anion Gap BUN Creatinine Estim Creat Clear Calc Est GFR (MDRD) Af Amer Est GFR (MDRD) Non-Af BUN/Creatinine Ratio Glucose Calcium Troponin I B-Natriuretic Peptide Free T4 1.23 Urine Color Urine Clarity Urine pH Ur Specific [place] Urine Protein Urine Glucose (UA) Urine Ketones Urine Occult Blood Urine Nitrite Urine Bilirubin Urine Urobilinogen Ur Leukocyte Esterase Urine RBC Urine WBC Ur Squamous Epith Cells Urine Bacteria Urine Mucus Vancomycin Trough MRSA (PCR) POC Glucose 143 H 148 H 11/11/18 11/11/18 11/12/18 21:42 23:00 06:00 WBC 10.0 RBC 3.60 L Hgb 10.3 L Hct 33.9 L MCV 94.2 H MCH 28.6 MCHC 30.4 L RDW Std Deviation 50.8 H RDW Coeff of Johanna 14.7 H Plt Count 252 MPV 10.0 Sodium Potassium Chloride Carbon Dioxide Anion Gap BUN Creatinine Estim Creat Clear Calc Est GFR (MDRD) Af Amer Est GFR (MDRD) Non-Af BUN/Creatinine Ratio Glucose Calcium Troponin I B-Natriuretic Peptide Free T4 Urine Color Red Urine Clarity Sl. Cloudy Urine pH 6.5 Ur Specific [place] 1.010 Urine Protein 100 H Urine Glucose (UA) Normal Urine Ketones Negative Urine Occult Blood 250 H Urine Nitrite Negative Urine Bilirubin Negative Urine Urobilinogen Normal Ur Leukocyte Esterase 100 H Urine RBC > 100 SEEN Urine WBC 10-25 SEEN Ur Squamous Epith Cells 0 SEEN Urine Bacteria 0 SEEN Urine Mucus 0 SEEN Vancomycin Trough MRSA (PCR) POC Glucose 192 H 11/12/18 06:00 WBC RBC Hgb Hct MCV MCH MCHC RDW Std Deviation RDW Coeff of Johanna Plt Count MPV Sodium 142 Potassium 3.6 Chloride 95 L Carbon Dioxide 42.0 H Anion Gap 5 BUN 22 H Creatinine 1.26 Estim Creat Clear Calc 59.23 Est GFR (MDRD) Af Amer 74 Est GFR (MDRD) Non-Af 61 BUN/Creatinine Ratio 17.5 Glucose 119 H Calcium 9.0 Troponin I B-Natriuretic Peptide Free T4 Urine Color Urine Clarity Urine pH Ur Specific [place] Urine Protein Urine Glucose (UA) Urine Ketones Urine Occult Blood Urine Nitrite Urine Bilirubin Urine Urobilinogen Ur Leukocyte Esterase Urine RBC Urine WBC Ur Squamous Epith Cells Urine Bacteria Urine Mucus Vancomycin Trough MRSA (PCR) POC Glucose Microbiology 11/09/18 01:00 Wound - Leg, Right Gram Stain - Final 11/09/18 01:00 Wound - Leg, Right Wound Culture - Final Streptococcus agalactiae (B) Staphylococcus capitis Pseudomonas aeroginosa Serratia marcescens Meth. resistant Staph. aureus 11/11/18 23:00 Stool Stool Occult Blood ([place]) - Final Occult Blood Positive 11/09/18 08:00 Sputum, Expectorated/Coughed Gram Stain - Final 11/09/18 08:00 Sputum, Expectorated/Coughed Respiratory Culture - Final Mixed normal respiratory bernabe. No Streptococcus pneumoniae, beta-hemolytic Streptococcus or Staphylococcus aureus isolated. Medical Necessity - Tobacco Use Tobacco Use: Cigarettes Assessment/Plan All Active Problems (Last Reviewed 10/08/18 @ 14:06 by Laine Jeronimo) Acute respiratory failure with hypoxia and hypercapnia (Acute) Bilateral pulmonary infiltrates on CXR (Acute) Bradycardia (Acute) CHF (congestive heart failure) (Acute) Thoracic aortic aneurysm, ruptured (Acute) Ulcer of right lower extremity (Acute) Chronic cutaneous venous stasis ulcer (Resolved) RECOMMENDATIONS: 1. Continue antibiotics as ordered. 2. Continue BiPAP with naps and nightly. 3. Monitor with telemetry 4. Continue IV Lasix regimen as long as Prieto is functional. 5. Okay to leave the intensive care unit from my perspective 6. Wean supplemental oxygen to maintain saturations at or above 90%. 7. Encourage incentive spirometer use and mobilize patient as tolerated. 8. Consult urology IMPRESSIONS: 1. Acute on chronic combined respiratory failure The patient is supposed to be utilizing 3 L/min of supplemental oxygen with exertion. However, he readily admits that he is not utilizing the supplemental O2 as prescribed. He did have upper lobe predominant groundglass changes on CT, which could be related to an underlying pulmonary infectious process. Patient was initiated on IV Lasix yesterday. Patient has had some improvement in respiratory status. Continue to recommend BiPAP with sleep. 2. Heart failure with preserved ejection fraction/pulmonary hypertension/intermittent bradycardia Repeat surface echocardiogram was largely unchanged from previous without evidence of RV dysfunction or significant pulmonary hypertension. Cardiology is currently following due to periods of bradycardia. Monitor off of labetalol therapy. The patient transitioned as noted above from p.o. to IV diuretic regimen. Renal function appears to be tolerating well. This is complicated by patient's current urological situation. 3. Chronic COPD/obstructive sleep apnea The patient regularly follows with Dr. Daugherty on an outpatient basis. Recommend continuing bronchodilators as ordered. Pap therapy will be continued. 4. Hematuria Patient was significant hematuria overnight. Patient is not draining well and urology has been consulted. We will continue to attempt irrigation as tolerated. Patient has not had a significant change in hemoglobin despite reported clots. 5. Hypertension/hyperlipidemia/anemia/chronic kidney disease/obesity/diabete s Complicates care, management, recovery and prognosis. Continue sliding scale insulin coverage. Physical therapy to work with the patient. Code Visit Inpatient E&M: 10210 [facility] Hosp L3
[2018-11-12] MEDS: Furosemide 40 MG/4 ML Vial IV ×2 (08:46→17:11)
[2018-11-12] MEDS: Pantoprazole Sodium 20 MG Tablet PO (08:47)
[2018-11-12] MEDS: Tamsulosin HCl 0.4 MG Capsule PO (08:47)
[2018-11-12] MEDS: Losartan Potassium 100 MG Tablet PO (08:47)
[2018-11-12] MEDS: BRIMONIDINE 0.2% 5ML BOTTLE 1 DRP OPHTHALMIC ×2 (08:47→21:14)
[2018-11-12] MEDS: Dorzolamide HCL/Timolol 10 ml Bottle 1 DRP OPHTHALMIC ×2 (08:48→21:13)
--- NOTE | 2018-11-12 09:41 | CON.PCM_ITS ---
Reason for Consult Date of Consultation: 11/12/18 Reason for Consultation: Gross hematuria and retention of urine History of Present Illness: The patient is a 63 year old male with multiple medical problems who presented to the hospital respiratory distress he is been admitted to the intensive care unit. Over the night he had a several catheter was put in but was having a lot of spasms and pain. He had a three-way catheter in place which is irrigating according to the nurses but he reports severe spasms and pain to the catheter was removed. We then came in to see the patient I obtain medical history regarding his prostate from the patient he said he saw urologist at the [facility] who did an evaluation and recommended that the patient do self intermittent catheterization. Patient reports that he did not do self intermittent catheterization because he felt like he was urinating okay. He also reports to me that he had a normal PSA. Never had a prostate biopsy. Never had prostate surgery. Currently on a BiPAP breathing machine and in the intensive care unit but in stable condition. Rectal exam was deferred for now. Past Medical History Past Medical History (Chronic Problems): Chronic Problems (Last Reviewed 10/08/18 @ 14:06 by Laine Jeronimo) Stage 3 chronic kidney disease (Chronic) Morbid obesity (Chronic) Renal insufficiency (Chronic) Lower extremity weakness (Chronic) Type 2 diabetes mellitus (Chronic) Osteoarthritis (Chronic) Chronic diastolic (congestive) heart failure (Chronic) Hyperlipidemia (Chronic) Essential (primary) hypertension (Chronic) Secondary pulmonary arterial hypertension (Chronic) Stage 2 moderate COPD by GOLD classification (Chronic) Shortness of breath (Chronic) ADELAIDE (obstructive sleep apnea) (Chronic) Medical History: Medical History (Last Reviewed 10/08/18 @ 14:06 by Laine Jeronimo) Ulcer of right lower extremity (Acute) L97.919 Chronic diastolic (congestive) heart failure (Chronic) I50.32 Hyperlipidemia (Chronic) E78.5 Essential (primary) hypertension (Chronic) I10 Secondary pulmonary arterial hypertension (Chronic) I27.21 Stage 2 moderate COPD by GOLD classification (Chronic) J44.9 Shortness of breath (Chronic) R06.02 ADELAIDE (obstructive sleep apnea) (Chronic) G47.33 Chronic kidney disease, stage 3 N18.3 Chronic venous insufficiency I87.2 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 Normocytic anemia D64.9 Obesity E66.9 Type 2 diabetes mellitus E11.9 Chronic cutaneous venous stasis ulcer (Resolved) I83.009 RLE Extremity Tobacco use Z72.0 Chronic venous stasis dermatitis (Inactive) I83.10 Allergies lisinopril Allergy (Severe, Verified 10/08/18 14:06) Angioedema latanoprost [From Xalatan] Adverse Reaction (Unknown, Verified 11/08/18 20:25) Other precipitation in eyes Sulfa (Sulfonamide Antibiotics) Adverse Reaction (Verified 10/08/18 14:06) Other chapstick Allergy (Uncoded 11/08/18 20:25) swelling Home Medications: Ambulatory Orders Medication Instructions Recorded hydrALAZINE [Apresoline] 50 mg PO TID #90 tab 09/20/15 tramadol 50 mg tablet 50 mg PO TID PRN tab 10/24/17 brimonidine 0.2 % eye drops 1 drp OPHTHALMIC BID ml 05/04/18 dorzolamide 2 %-timolol 0.5 % (PF) 1 drp OPHTHALMIC BID 05/04/18 eye drops ipratropium-albuterol 0.5 mg-3 3 ml INHALATION Q6H PRN ml 05/04/18 mg(2.5 mg base)/3 mL nebulization soln losartan 100 mg tablet 100 mg PO DAILY 05/04/18 omeprazole 20 mg capsule,delayed 20 mg PO DAILY 05/04/18 release labetalol 200 mg tablet 200 mg PO TID tab 05/30/18 tamsulosin 0.4 mg capsule 0.4 mg PO DAILY 05/30/18 furosemide 20 mg tablet 20 mg PO DAILY #30 tab 06/06/18 furosemide 40 mg tablet 40 mg PO BID #180 tab 07/04/18 aspirin 325 mg tablet 325 mg PO DAILY 09/06/18 latanoprost 0.005 % eye drops 1 drp OPHTHALMIC QPM 09/06/18 fluticasone fur. 100 mcg-umeclid 1 inh INHALATION DAILY #60 ea 11/08/18 62.5 mcg-vilant 25 mcg inhalat.powder sitagliptin 50 mg tablet 50 mg PO DAILY #30 tab 11/08/18 Surgical History: no surgical history Psychiatric History: No pertinent psych hx Lives: Spouse/ Significant Other Tobacco Use: Cigarettes Alcohol: None Drugs: None - *Family History Maternal Family History: Family History (Last Reviewed 10/08/18 @ 14:06 by Laine Jeronimo) Father Cancer Mother Asthma History Items: Asthma Paternal Family History: Family History (Last Reviewed 10/08/18 @ 14:06 by Laine Jeronimo) Father Cancer Mother Asthma History Items: Cancer Review of Systems Constitutional: Denies: Chills, Fever, Weight Change HEENT: Denies: Head Aches, Sinus Congestion, Sinus Drainage Cardiovascular: Denies: Chest Pain, Palpitations Respiratory: Reports: Shortness of Breath. Denies: Cough, Sputum production Gastrointestinal: Denies: Abdominal Pain, Nausea, Vomiting Genitourinary: Reports: Hematuria, Incontinence, Retention. Denies: Dysuria Musculoskeletal: Denies: Joint Pain, Joint Tenderness Skin: Denies: Rash, Wounds Neurological: Denies: Numbness, Tingling, Focal weakness Psychiatric: Denies: Anxiety, Depression, Homicidal Ideations, Suicidal Ideations Hematologic/ Lymphatic: Denies: Easy Bruising, Easy Bleeding Physical Exam - Physical Exam Vital Signs Temp 98.2 F 11/12/18 00:00 Pulse 78 11/12/18 07:24 Resp 21 H 11/12/18 07:24 BP 184/108 H 11/12/18 07:00 Pulse Ox 94 11/12/18 08:30 Intake & Output 11/10/18 11/11/18 11/12/18 23:59 23:59 23:59 Intake Total 2528.34 / 2528.34 1528.33 / 2378.33 1650 / 1650 Output Total 1650 / 1650 1100 / 1450 1350 / 1350 Balance 878.34 / 878.34 428.33 / 928.33 300 / 300 Weight: 137.8 kg 137.3 kg 134.1 kg Intake: Oral 1210 / 1210 750 / 1600 1600 / 1600 Intake, IV Amount 1318.34 / 1318.34 778.33 / 778.33 50 / 50 Vancomycin IV 1,000 MG/20 ML In 1070 / 1070 535 / 535 0.9% Normal Saline 500 ML @ 250 mls/hr IV Q12H [facility] Rx#: [id number] Venofer 200 MG In 0.9% Normal 110 / 110 Saline 100 ML @ 220 mls/hr IV X1 ONE Rx#:[id number] Venofer 200 MG In 0.9% Normal 110 / 110 Saline 100 ML @ 220 mls/hr IV X1 ONE Rx#:[id number] Zosyn 3.375 GM In 0.9% Normal 138.34 / 138.34 133.33 / 133.33 50 / 50 Saline 50 ML @ 12.5 mls/hr IV Q8 [facility] Rx#:[id number] Output: Urine 1650 / 1650 1100 / 1400 1300 / 1300 #2 Urine 50 / 50 Other: Number of times incontinent 1 1 Incontinent Amount Large Large Incontinent Amount Urine #2 Large Moderate Number of times incontinent 1 Urine #2 General: Alert, Oriented x3 HEENT: Atraumatic Oral: Moist Mucosa Neck: Supple Lungs: Normal air movement Cardiovascular: Regular rate Abdomen: Soft, Obese Rectal: Exam deferred Microbiology Past 72 Hours 11/09/18 01:00 Gram Stain - Final Wound - Leg, Right Wound Culture - Final Streptococcus agalactiae (B) Staphylococcus capitis Pseudomonas aeroginosa Serratia marcescens Meth. resistant Staph. aureus 11/11/18 23:00 Stool Occult Blood ([place]) - Final Stool Occult Blood Positive 11/09/18 08:00 Gram Stain - Final Sputum, Expectorated/Coughed Respiratory Culture - Final Mixed normal respiratory bernabe. No Streptococcus pneumoniae, beta-hemolytic Streptococcus or Staphylococcus aureus isolated. 11/09/18 05:45 Respiratory Panel (PCR) - Final Mucosa - Nose Laboratory Tests Past 24 Hrs 11/11/18 11/12/18 11/12/18 23:00 06:00 06:00 WBC 10.0 RBC 3.60 L Hgb 10.3 L Hct 33.9 L MCV 94.2 H MCH 28.6 MCHC 30.4 L RDW Std Deviation 50.8 H RDW Coeff of Johanna 14.7 H Plt Count 252 MPV 10.0 Sodium 142 Potassium 3.6 Chloride 95 L Carbon Dioxide 42.0 H Anion Gap 5 BUN 22 H Creatinine 1.26 Estim Creat Clear Calc 59.23 Est GFR (MDRD) Af Amer 74 Est GFR (MDRD) Non-Af 61 BUN/Creatinine Ratio 17.5 Glucose 119 H Calcium 9.0 Urine Color Red Urine Clarity Sl. Cloudy Urine pH 6.5 Ur Specific Gans 1.010 Urine Protein 100 H Urine Glucose (UA) Normal Urine Ketones Negative Urine Occult Blood 250 H Urine Nitrite Negative Urine Bilirubin Negative Urine Urobilinogen Normal Ur Leukocyte Esterase 100 H Urine RBC > 100 SEEN Urine WBC 10-25 SEEN Ur Squamous Epith Cells 0 SEEN Urine Bacteria 0 SEEN Urine Mucus 0 SEEN Assessment/Plan All Active Problems (Last Reviewed 10/08/18 @ 14:06 by Laine Jeronimo) Acute respiratory failure with hypoxia and hypercapnia (Acute) Bilateral pulmonary infiltrates on CXR (Acute) Bradycardia (Acute) CHF (congestive heart failure) (Acute) Thoracic aortic aneurysm, ruptured (Acute) Ulcer of right lower extremity (Acute) Chronic cutaneous venous stasis ulcer (Resolved) 63-year-old male, with catheter problems overnight, I put in a 24 Stateless single channel catheter and irrigated out the bladder he had a lot of clots in his bladder. Once the bladder was irrigated completely clear we also drained out over a liter from his bladder of dark bloody urine. Finally got the urine clear with irrigation. The nurses should not remove this catheter. This should be able to flush the bladder fairly easily and get in the clots out fairly easily. We can also use BNO suppositories for spasms if necessary. Give any questions or concerns he can call me on my cell phone I will be out of town this afternoon but should be back in town by this evening hopefully will not have any problems.
[2018-11-12 09:56] LABS: Bedside Glucose 139 mg/dL (70-110)
[2018-11-12] MEDS: CHLORHEXIDINE GLUC 2% CLOTH 1 EACH TOWELETTE TOPICAL (09:57)
[2018-11-12] MEDS: hydrALAZINE 20 MG/ML Vial 10 MG IV (10:20)
[2018-11-12] MEDS: 0.9% NaCl Peripheral Flush Adult/Peds IV ×2 (10:21→15:05)
--- NOTE | 2018-11-12 10:41 | PCM.PN.CARD ---
Subjectve: The patient appears to be resting comfortably this morning. He states overall he believes his breathing has improved. He is denied chest discomfort. He notes his main concern yesterday evening was bladder spasms and leakage around his Prieto catheter as well as clots passing in and around his Prieto catheter. He has subsequently been evaluated by urology with alteration in his Prieto catheter. Objective: Vital Signs Temp Pulse Resp BP Pulse Ox 98.3 F 80 20 H 173/96 H 95 11/12/18 10:00 11/12/18 10:20 11/12/18 10:00 11/12/18 10:20 11/12/18 10:00 Oxygen Flow Rate (L/min) 4 Oxygen Delivery Method Bi-pap Weight: 295 lb 10.238 oz Body Mass Index (BMI) 44.8 Intake and Output for Last 24 Hours 11/10/18 11/11/18 11/12/18 23:59 23:59 23:59 Intake Total 2528.34 / 2528.34 1528.33 / 2378.33 1650 / 1650 Output Total 1650 / 1650 1100 / 1450 3675 / 3675 Balance 878.34 / 878.34 428.33 / 928.33 -2024 / -2024 General: Awake, Alert, Oriented x 3, Cooperative, Obese HEENT: Atraumatic, Normocephalic, PERRL, EOMI, Sclera Non Icteric Oral: Moist Mucosa Neck: Supple, Good ROM, No JVD Lungs: Diminished Jadiel Bases Cardiovascular: Regular Rhythm, Normal S1, Normal S2 Abdomen: Bowel Sounds Present, Soft, Non Tender Extremities: - - Bilateral lower extremity Dylan wrap Psych/Mental Status: Appropriate 11/11/18 23:00: Urine Color Red, Urine Clarity Sl. Cloudy, Urine pH 6.5, Ur Specific Brewster 1.010, Urine Protein 100 H, Urine Glucose (UA) Normal, Urine Ketones Negative, Urine Occult Blood 250 H, Urine Nitrite Negative, Urine Bilirubin Negative, Urine Urobilinogen Normal, Ur Leukocyte Esterase 100 H, Urine RBC > 100 SEEN, Urine WBC 10-25 SEEN 11/12/18 06:00: WBC 10.0, RBC 3.60 L, Hgb 10.3 L, Hct 33.9 L, MCV 94.2 H, MCH 28.6, MCHC 30.4 L, Plt Count 252, MPV 10.0 11/12/18 06:00: Sodium 142, Potassium 3.6, Chloride 95 L, Carbon Dioxide 42.0 H, Anion Gap 5, BUN 22 H, Creatinine 1.26, Est GFR (MDRD) Af Amer 74, Est GFR (MDRD) Non-Af 61, BUN/Creatinine Ratio 17.5, Glucose 119 H, Calcium 9.0 Rhythm: Sinus rhythm Medical Necessity - Tobacco Use Tobacco Use: Cigarettes Assessment/Plan 1. Sinus bradycardia/PSVT The patient has had intermittent episodes of sinus bradycardia / sinus pauses. He has also been noted to have episodes of a PSVT. He had additional marked sinus bradycardia / prolonged pauses after receiving 2 doses of oral labetalol 200 mg on 11/10/18 - 11/11/18. As his rate limiting medications have been held he has had no recurrent marked sinus bradycardia or prolonged pauses. At the present time he will continue to be monitored. He should continue his pulmonary evaluation and care and support. If he continues with bradydysrhythmias despite holding rate limiting medications then he will need to be transferred to a tertiary care center for EP evaluation for consideration for PPM. If he needs the labetalol for his hypertension, then he should be transferred to a tertiary care center for EP consideration for PPM placement to allow him to take rate limiting medications without becoming bradycardic, etc. 2. CHF: Acute diastolic There are concerns that he has acute diastolic mediated CHF superimposed upon his pulmonary disease process. At the present time he will need to continue medical support which would include diuretic therapy. He will also continue his pulmonary support. 3. Descending thoracic aortic aneurysm: Chronic dissection Per his radiology report he has a descending thoracic aortic aneurysm with dissection which is chronic and reported without significant change since 2016. At the moment he will continue to be followed. 4. Hyperlipidemia He will continue risk factor modification medical therapy as deemed appropriate. 5. Hypertension He will continue medical management. His hydralazine/Apresoline dose will be increased. He will also be placed on additional medical therapy with amlodipine/Norvasc. Again his medication should be adjusted to avoid any rate limiting medications that could exacerbate any bradycardia dysrhythmias. 6. Diabetes mellitus He will continue under evaluation care per internal medicine. 7. Shortness of breath/dyspnea He does present with worsening shortness of breath and dyspnea. It is thought this is related to a combination of his underlying decreased diastolic compliance and diastolic mediated CHF as well as his underlying pulmonary condition. He believes his breathing has improved overall. 8. Obstructive sleep apnea He will continue evaluation care per internal medicine and pulmonology/critical care medicine. 9. COPD He is reported as having COPD. He will continue evaluation care per internal medicine and pulmonology/critical care medicine. 10. Secondary pulmonary hypertension Based upon his recent echocardiogram is estimated RV systolic pressure was 31 mmHg which would be mildly elevated. He will need continued medical therapy and pulmonary support. 11. Respiratory failure He was diagnosed with acute respiratory failure. Again this may be a combination of his cardiopulmonary condition. He was placed in the ICU. He will continue evaluation care by internal medicine, pulmonology, and cardiology as deemed appropriate. At the present time, based upon his ongoing pulmonary disease process, he is going to undergo IV diuresis. Hopefully this will assist with his pulmonary process. 12. Renal insufficiency He does have an element of chronic renal insufficiency. He will continue medical management. Comment: The patient's case was discussed and reviewed with the patient. This note was generated using a voice recognition system and there may be incorrect words, spelling or punctuation that were not noted when reviewing the office note prior to saving.
[2018-11-12] MEDS: Adenosine 6 MG/2 ML Syringe IV (12:52)
[2018-11-12] MEDS: Adenosine 6 MG/2 ML Syringe 12 MG IV ×2 (13:00→14:27)
--- NOTE | 2018-11-12 13:21 | NURSING ---
1250-PT RESTING IN BED. O2 AT 4L NC. HR NOTED TO BE 170-180'S. REPORTS CP 7:10. DR CORRAL NOTIFIED-NEW ORDER FOR ADENOSINE 6MG IV X1. 1252- 6MG ADENOSINE ADMIN, HR DECREASED TO 70'S FOR A BRIEF PERIOD, PT REPORTS NO CP. HR BACK TO 170'S. DR CORRAL NOTIFIED. NEW ORDER FOR 12MG ADENOSINE IV X1. 1300- 12MG ADENOSINE ADMIN. HR DECREASED TO 90'S, PT DENIES CP. DR CORRAL NOTIFIED- STATES TO CONT TO MONITOR RATE, RHYTHM AND BP.
[2018-11-12] MEDS: Insulin Lispro 100 UNIT/ML INSULN.PEN SC ×2 (13:32→17:08)
[2018-11-12] MEDS: hydrALAZINE 50 MG Tablet 100 MG PO ×2 (13:33→21:14)
[2018-11-12 13:41] LABS: Bedside Glucose 160 mg/dL (70-110)
--- NOTE | 2018-11-12 14:40 | NURSING ---
1423- PT RESTING IN BED, BIPAP IN PLACE. SVT NOTED AGAIN ON MONITOR- WX=728, BP=91/60. PT REPORTS CHEST PAIN 8:10. DR CORRAL NOTIFIED-NEW ORDER FOR 12MG IV ADENOSINE X1. 1427-DR CORRAL PRESENT AT BEDSIDE. HG=800, BP=79/55. 12MG IV ADENOSINE ADMIN. HR DECREASED TO 78, PAIN DECREASED TO 2:10. HR STABILIZED AT 101. DR CORRAL CONTINUES TO STAY AT BEDSIDE DISCUSSING PT STATUS AND PLAN W/PT AND FAMILY.
[2018-11-12] MEDS: Metoprolol Tartrate 5 MG/5 ML Vial 2.5 MG IV ×2 (15:04→23:55)
[2018-11-12 17:16] LABS: Bedside Glucose 177 mg/dL (70-110)
--- NOTE | 2018-11-12 17:17 | PCM.PROGNOTE ---
Patient Problems: Active and Suspected Problems (Last Reviewed 10/08/18 @ 14:06 by Laine Jeronimo) Acute respiratory failure with hypoxia and hypercapnia (Acute) Bilateral pulmonary infiltrates on CXR (Acute) Bradycardia (Acute) CHF (congestive heart failure) (Acute) Thoracic aortic aneurysm, ruptured (Acute) Subjective: Patient was seen and examined today, he remains on BiPAP, I talked briefly with critical care and neurology concerning the patient's care today as well as cardiology. Critical care feels that the patient should remain on antibiotics more for his leg wounds then for an actual diagnosis of pneumonia. Patient had episodic SVT this afternoon and cardiology is adjusting his medications. Finally, I called urology due to the fact the patient had urinary retention and his three-way Prieto was not working, urology saw the patient in consultation today. At this time, patient denies any chest pain, he does have some shortness of breath, he has no complaints of any fever or chills. Patient's white blood cell count today was normal at 10, BUN was 22. - Physical Exam General: Alert, Oriented x3, Cooperative, Well developed, Well nourished HEENT: Atraumatic, PERRLA, EOMI, Normocephalic Oral: Moist Mucosa Neck: Supple, No JVD, Trachea Midline, Thyroid Normal Size and Texture Lungs: Clear to auscultation, No rhonchi, No wheeze, No rales, Diminished Cardiovascular: Regular rate, Regular Rhythm, Normal S1, Normal S2, No murmurs, No Ectopic Activity, PMI Normal, No rub noted, No Gallop Abdomen: Bowel Sounds Present, Soft, Non Tender, Non-Distended, Obese Extremities: No clubbing, No cyanosis, Capillary Refill Less than 3 Seconds, Edema - Generalized edema is noted over the lower legs, patient has a surgical dressing on his right leg wound and this area was not examined Skin: No rashes, Ulcer/ Wound - Patient has a known stasis ulcer to the right lower extremity examined today Musculoskeletal: No Tenderness to Palpation of Joints or Extremities Neurological: Cranial nerves II-XII grossly intact, Neuro grossly intact, Sensory exam intact to light touch and pain, Coordination normal Psych/Mental Status: Normal Affect, Appropriate, Alert and oriented to time, place, person, mood and affect Vital Signs Temp Pulse Resp BP Pulse Ox 98.1 F 86 20 H 132/89 H 94 09//19 16:00 11/12/18 17:11 11/12/18 16:00 11/12/18 17:11 11/12/18 16:00 Oxygen Flow Rate (L/min) 40 Oxygen Delivery Method Bi-pap Weight: 134.1 kg Body Mass Index (BMI) 44.8 Intake and Output for Last 24 Hours 11/10/18 11/11/18 11/12/18 23:59 23:59 23:59 Intake Total 2528.34 / 2528.34 1528.33 / 2378.33 2049 / 2049 Output Total 1650 / 1650 1100 / 1450 4375 / 4375 Balance 878.34 / 878.34 428.33 / 928.33 -2325 / -2325 Microbiology Past 72 Hours 11/09/18 01:00 Gram Stain - Final Wound - Leg, Right Wound Culture - Final Streptococcus agalactiae (B) Staphylococcus capitis Pseudomonas aeroginosa Serratia marcescens Meth. resistant Staph. aureus 11/11/18 23:00 Stool Occult Blood ([place]) - Final Stool Occult Blood Positive 11/09/18 08:00 Gram Stain - Final Sputum, Expectorated/Coughed Respiratory Culture - Final Mixed normal respiratory bernabe. No Streptococcus pneumoniae, beta-hemolytic Streptococcus or Staphylococcus aureus isolated. Laboratory Tests Past 24 Hrs 11/11/18 11/12/18 11/12/18 23:00 06:00 06:00 WBC 10.0 RBC 3.60 L Hgb 10.3 L Hct 33.9 L MCV 94.2 H MCH 28.6 MCHC 30.4 L RDW Std Deviation 50.8 H RDW Coeff of Johanna 14.7 H Plt Count 252 MPV 10.0 Sodium 142 Potassium 3.6 Chloride 95 L Carbon Dioxide 42.0 H Anion Gap 5 BUN 22 H Creatinine 1.26 Estim Creat Clear Calc 59.23 Est GFR (MDRD) Af Amer 74 Est GFR (MDRD) Non-Af 61 BUN/Creatinine Ratio 17.5 Glucose 119 H Calcium 9.0 Urine Color Red Urine Clarity Sl. Cloudy Urine pH 6.5 Ur Specific Effie 1.010 Urine Protein 100 H Urine Glucose (UA) Normal Urine Ketones Negative Urine Occult Blood 250 H Urine Nitrite Negative Urine Bilirubin Negative Urine Urobilinogen Normal Ur Leukocyte Esterase 100 H Urine RBC > 100 SEEN Urine WBC 10-25 SEEN Ur Squamous Epith Cells 0 SEEN Urine Bacteria 0 SEEN Urine Mucus 0 SEEN POC Glucose 11/12/18 11/12/18 11/12/18 17:02 13:32 08:37 POC Glucose 177 H 160 H 139 H 11/11/18 11/11/18 21:42 17:21 POC Glucose 192 H 148 H Medical Necessity - Tobacco Use Tobacco Use: Cigarettes Assessment/Plan All Active Problems (Last Reviewed 10/08/18 @ 14:06 by Laine Jeronimo) Acute respiratory failure with hypoxia and hypercapnia (Acute) Bilateral pulmonary infiltrates on CXR (Acute) Bradycardia (Acute) CHF (congestive heart failure) (Acute) Thoracic aortic aneurysm, ruptured (Acute) Ulcer of right lower extremity (Acute) Chronic cutaneous venous stasis ulcer (Resolved) #1 acute combined respiratory failure on a backdrop of chronic minor respiratory failure-critical care is monitoring the patient's respiratory status and making appropriate adjustments of his BiPAP. #2 acute on chronic diastolic congestive heart failure-cardiology is participating in his care #3 chronic stasis wound to right lower extremity, possible infection with multiple organisms-the wound care nurse will see the patient tomorrow, patient will main on his current antibiotics #4 chronic obstructive pulmonary disease-noncompliant with oxygen usage #5 obstructive sleep apnea #6 type 2 diabetes-blood sugars will be monitored and sliding scale insulin will be adjusted as needed #7 bradycardia-etiology not completely clear, patient is currently off of any beta-lupis therapy, cardiology seeing the patient #8 SVT-patient was given adenosine today by cardiology, cardiology will be adjusting his medications #9 hyperlipidemia #10 osteoarthritis #11 stage III chronic kidney disease secondary to type 2 diabetes #12 iron deficiency anemia Code Visit Inpatient E&M: 82207 Subs Hosp L2
[2018-11-12] MEDS: Latanoprost 0.005% 1 Bottle 1 DRP OPHTHALMIC (21:13)
[2018-11-12 21:25] LABS: Bedside Glucose 142 mg/dL (70-110)
[2018-11-13] VITALS (31 sets, daily range): BP systolic 120–170; BP diastolic 61–104; PULSE 65–95; RESP 12–26; TEMP 36.4–37; O2SAT 88–100
[2018-11-13] MEDS: Metoprolol Tartrate 5 MG/5 ML Vial 2.5 MG IV (04:53)
[2018-11-13] MEDS: 0.9% NaCl Peripheral Flush Adult/Peds IV ×2 (04:53→10:49)
[2018-11-13] MEDS: Phenazopyridine 95 MG Tablet PO ×2 (04:54→13:53)
[2018-11-13] MEDS: hydrALAZINE 50 MG Tablet 100 MG PO ×3 (04:54→21:52)
[2018-11-13 06:23] LABS: Absolute Lymphocyte Count 0.98 X10^3/uL (0.83-4.51); Absolute Neutrophil Count 7.9 X10^3/uL (2.0-7.7); Basophil# 0.03 X10^3/uL; Basophil% 0.3 % (0-1); Eosinophil# 0.54 X10^3/uL; Eosinophils% 5.2 % (0-5); Hematocrit 34.6 % (40-54); Hemoglobin 10.3 g/dL (13.0-16.5); Lymphocyte # 0.98 X10^3/ul (4.0); Lymphocyte % 9.4 % (19-41); Mean Corp Hgb Conc 29.8 g/dL (32-36); Mean Corpuscular Hgb 28.1 pg (27.0-32.0); Mean Corpuscular Volume 94.5 fL (80-94); Mean Platelet Vol. 9.8 fl (6.2-12.0); Monocyte% 8.6 % (0-10); NRBC Flagged by Analyzer 0 % (0-5); Neutrophil # 7.93 X10^3/uL (2.7-7.7); Neutrophil % 76.1 % (47-70); Platelet Count 266 K/mm3 (150-450); RBC Distribution Width SD 52.4 fl (35.1-43.9); Red Blood Count 3.66 M/mm3 (4.6-6.2); White Blood Count 10.4 K/mm3 (4.4-11.0)
[2018-11-13 06:41] LABS: Anion Gap 4 (5-15); BUN 22 mg/dL (7-18); BUN/Creat Ratio 17.6 RATIO (10-20); Calcium,Total 9.2 mg/dL (8.5-10.1); Chloride 95 mmol/L (98-107); Creatinine, Serum 1.25 mg/dL (0.70-1.30); EST Glomerular Filtration Rate 62 mL/min (>60); Est Glom Filt Rate - Afr Amer 75 mL/min (>60); Glucose 136 mg/dL (74-106); Phosphorus 3.3 mg/dL (2.5-4.9); Potassium 3.8 mmol/L (3.5-5.1); Sodium Level 142 mmol/L (136-145)
--- NOTE | 2018-11-13 06:59 | PN_ITS ---
Subjective: Patient did okay overnight. Patient did have a period of desaturation associated with blowing his nose, but recovered well. Patient has not had any further issues with urinary retention secondary to clots. General: Alert, Oriented x3, Cooperative, No apparent distress, - - Morbidly obese. No conversational dyspnea. HEENT: Atraumatic, PERRLA, EOMI, Normocephalic, - - Slight scleral injection without icterus Oral: Moist Mucosa, No Gingival or Mucosal Lesions/ Ulcerations, - - Crowded posterior pharynx Neck: Supple, No Nodes, Trachea Midline, JVD, Right Lungs: No rhonchi, No wheeze, No rales, Diminished, - - Symmetric expansion. No dullness to percussion. Cardiovascular: Regular rate, Regular Rhythm, Normal S1, Normal S2, No murmurs, No rub noted, No Gallop Abdomen: Bowel Sounds Present, Soft, Non Tender, Non-Distended, Obese Extremities: No clubbing, No cyanosis, Edema Skin: Ulcer/ Wound - Unchanged from previous Musculoskeletal: No Tenderness to Palpation of Joints or Extremities Lymphatic: No Cervical, Supraclavicular, or Inguinal Adenopathy Neurological: Cranial nerves II-XII grossly intact, Neuro grossly intact, Motor Exam 5/5 strength throughout Psych/Mental Status: Alert and oriented to time, place, person, mood and affect Vital Signs Temp Pulse Resp BP Pulse Ox 36.8 C 73 16 169/92 H 100 11/13/18 04:00 11/13/18 06:00 11/13/18 06:00 11/13/18 06:00 11/13/18 06:00 Oxygen Flow Rate (L/min) 4 Oxygen Delivery Method Bi-pap Weight: 134.4 kg Body Mass Index (BMI) 44.8 Intake and Output for Last 24 Hours 11/11/18 11/12/18 11/13/18 23:59 23:59 23:59 Intake Total 1528.33 / 2378.33 2340 / 2460 290.00 / 290.00 Output Total 1100 / 1450 4575 / 5175 1050 / 1050 Balance 428.33 / 928.33 -2235 / -2715 -760.00 / -760.00 Labs (Last 48 Hours) 11/11/18 11/11/18 11/11/18 06:50 06:50 06:50 WBC 9.3 RBC 3.48 L Hgb 9.9 L Hct 32.7 L MCV 94.0 MCH 28.4 MCHC 30.3 L RDW Std Deviation 51.4 H RDW Coeff of Johanna 14.8 H Plt Count 232 MPV 10.3 Immature Gran % (Auto) Neut % (Auto) Lymph % (Auto) [place] % (Auto) Eos % (Auto) Baso % (Auto) Absolute Neuts (auto) Absolute Lymphs (auto) Nucleated RBC % Sodium Potassium Chloride Carbon Dioxide Anion Gap BUN Creatinine Estim Creat Clear Calc Est GFR (MDRD) Af Amer Est GFR (MDRD) Non-Af BUN/Creatinine Ratio Glucose Calcium Phosphorus Magnesium Troponin I < 0.015 B-Natriuretic Peptide 46.4 Free T4 Urine Color Urine Clarity Urine pH Ur Specific [place] Urine Protein Urine Glucose (UA) Urine Ketones Urine Occult Blood Urine Nitrite Urine Bilirubin Urine Urobilinogen Ur Leukocyte Esterase Urine RBC Urine WBC Ur Squamous Epith Cells Urine Bacteria Urine Mucus POC Glucose 11/11/18 11/11/18 11/11/18 06:50 11:35 17:21 WBC RBC Hgb Hct MCV MCH MCHC RDW Std Deviation RDW Coeff of Johanna Plt Count MPV Immature Gran % (Auto) Neut % (Auto) Lymph % (Auto) [place] % (Auto) Eos % (Auto) Baso % (Auto) Absolute Neuts (auto) Absolute Lymphs (auto) Nucleated RBC % Sodium Potassium Chloride Carbon Dioxide Anion Gap BUN Creatinine Estim Creat Clear Calc Est GFR (MDRD) Af Amer Est GFR (MDRD) Non-Af BUN/Creatinine Ratio Glucose Calcium Phosphorus Magnesium Troponin I B-Natriuretic Peptide Free T4 1.23 Urine Color Urine Clarity Urine pH Ur Specific [place] Urine Protein Urine Glucose (UA) Urine Ketones Urine Occult Blood Urine Nitrite Urine Bilirubin Urine Urobilinogen Ur Leukocyte Esterase Urine RBC Urine WBC Ur Squamous Epith Cells Urine Bacteria Urine Mucus POC Glucose 143 H 148 H 11/11/18 11/11/18 11/12/18 21:42 23:00 06:00 WBC 10.0 RBC 3.60 L Hgb 10.3 L Hct 33.9 L MCV 94.2 H MCH 28.6 MCHC 30.4 L RDW Std Deviation 50.8 H RDW Coeff of Johanna 14.7 H Plt Count 252 MPV 10.0 Immature Gran % (Auto) Neut % (Auto) Lymph % (Auto) [place] % (Auto) Eos % (Auto) Baso % (Auto) Absolute Neuts (auto) Absolute Lymphs (auto) Nucleated RBC % Sodium Potassium Chloride Carbon Dioxide Anion Gap BUN Creatinine Estim Creat Clear Calc Est GFR (MDRD) Af Amer Est GFR (MDRD) Non-Af BUN/Creatinine Ratio Glucose Calcium Phosphorus Magnesium Troponin I B-Natriuretic Peptide Free T4 Urine Color Red Urine Clarity Sl. Cloudy Urine pH 6.5 Ur Specific [place] 1.010 Urine Protein 100 H Urine Glucose (UA) Normal Urine Ketones Negative Urine Occult Blood 250 H Urine Nitrite Negative Urine Bilirubin Negative Urine Urobilinogen Normal Ur Leukocyte Esterase 100 H Urine RBC > 100 SEEN Urine WBC 10-25 SEEN Ur Squamous Epith Cells 0 SEEN Urine Bacteria 0 SEEN Urine Mucus 0 SEEN POC Glucose 192 H 11/12/18 11/12/18 11/12/18 06:00 08:37 13:32 WBC RBC Hgb Hct MCV MCH MCHC RDW Std Deviation RDW Coeff of Johanna Plt Count MPV Immature Gran % (Auto) Neut % (Auto) Lymph % (Auto) [place] % (Auto) Eos % (Auto) Baso % (Auto) Absolute Neuts (auto) Absolute Lymphs (auto) Nucleated RBC % Sodium 142 Potassium 3.6 Chloride 95 L Carbon Dioxide 42.0 H Anion Gap 5 BUN 22 H Creatinine 1.26 Estim Creat Clear Calc 59.23 Est GFR (MDRD) Af Amer 74 Est GFR (MDRD) Non-Af 61 BUN/Creatinine Ratio 17.5 Glucose 119 H Calcium 9.0 Phosphorus Magnesium Troponin I B-Natriuretic Peptide Free T4 Urine Color Urine Clarity Urine pH Ur Specific [place] Urine Protein Urine Glucose (UA) Urine Ketones Urine Occult Blood Urine Nitrite Urine Bilirubin Urine Urobilinogen Ur Leukocyte Esterase Urine RBC Urine WBC Ur Squamous Epith Cells Urine Bacteria Urine Mucus POC Glucose 139 H 160 H 11/12/18 11/12/18 11/13/18 17:02 21:07 06:10 WBC 10.4 RBC 3.66 L Hgb 10.3 L Hct 34.6 L MCV 94.5 H MCH 28.1 MCHC 29.8 L RDW Std Deviation 52.4 H RDW Coeff of Johanna 15.0 H Plt Count 266 MPV 9.8 Immature Gran % (Auto) 0.400 Neut % (Auto) 76.1 H Lymph % (Auto) 9.4 L [place] % (Auto) 8.6 Eos % (Auto) 5.2 H Baso % (Auto) 0.3 Absolute Neuts (auto) 7.9 H Absolute Lymphs (auto) 0.98 Nucleated RBC % 0 Sodium Potassium Chloride Carbon Dioxide Anion Gap BUN Creatinine Estim Creat Clear Calc Est GFR (MDRD) Af Amer Est GFR (MDRD) Non-Af BUN/Creatinine Ratio Glucose Calcium Phosphorus Magnesium Troponin I B-Natriuretic Peptide Free T4 Urine Color Urine Clarity Urine pH Ur Specific [place] Urine Protein Urine Glucose (UA) Urine Ketones Urine Occult Blood Urine Nitrite Urine Bilirubin Urine Urobilinogen Ur Leukocyte Esterase Urine RBC Urine WBC Ur Squamous Epith Cells Urine Bacteria Urine Mucus POC Glucose 177 H 142 H 11/13/18 06:10 WBC RBC Hgb Hct MCV MCH MCHC RDW Std Deviation RDW Coeff of Johanna Plt Count MPV Immature Gran % (Auto) Neut % (Auto) Lymph % (Auto) [place] % (Auto) Eos % (Auto) Baso % (Auto) Absolute Neuts (auto) Absolute Lymphs (auto) Nucleated RBC % Sodium 142 Potassium 3.8 Chloride 95 L Carbon Dioxide 43.0 H Anion Gap 4 L BUN 22 H Creatinine 1.25 Estim Creat Clear Calc 59.70 Est GFR (MDRD) Af Amer 75 Est GFR (MDRD) Non-Af 62 BUN/Creatinine Ratio 17.6 Glucose 136 H Calcium 9.2 Phosphorus 3.3 Magnesium 2.0 Troponin I B-Natriuretic Peptide Free T4 Urine Color Urine Clarity Urine pH Ur Specific [place] Urine Protein Urine Glucose (UA) Urine Ketones Urine Occult Blood Urine Nitrite Urine Bilirubin Urine Urobilinogen Ur Leukocyte Esterase Urine RBC Urine WBC Ur Squamous Epith Cells Urine Bacteria Urine Mucus POC Glucose Microbiology 11/09/18 01:00 Wound - Leg, Right Gram Stain - Final 11/09/18 01:00 Wound - Leg, Right Wound Culture - Final Streptococcus agalactiae (B) Staphylococcus capitis Pseudomonas aeroginosa Serratia marcescens Meth. resistant Staph. aureus 11/11/18 23:00 Stool Stool Occult Blood ([place]) - Final Occult Blood Positive 11/09/18 08:00 Sputum, Expectorated/Coughed Gram Stain - Final 11/09/18 08:00 Sputum, Expectorated/Coughed Respiratory Culture - Final Mixed normal respiratory bernabe. No Streptococcus pneumoniae, beta-hemolytic Streptococcus or Staphylococcus aureus isolated. Clinical Impression(s) from Imaging Studies Chest X-Ray 11/11/18 06:54 IMPRESSION: Stable appearance of the chest with no acute superimposed finding. Electronically Signed: Onel Dorado MD at 10:11 EDT , Service support , Medical Necessity - Tobacco Use Tobacco Use: Cigarettes Assessment/Plan All Active Problems (Last Reviewed 10/08/18 @ 14:06 by Laine Jeronimo) Acute respiratory failure with hypoxia and hypercapnia (Acute) Bilateral pulmonary infiltrates on CXR (Acute) Bradycardia (Acute) CHF (congestive heart failure) (Acute) Thoracic aortic aneurysm, ruptured (Acute) Ulcer of right lower extremity (Acute) Chronic cutaneous venous stasis ulcer (Resolved) RECOMMENDATIONS: 1. Continue antibiotics as ordered. 2. Continue BiPAP with naps and nightly. 3. Monitor with telemetry 4. Continue IV Lasix regimen as ordered 5. Okay to leave the intensive care unit from my perspective 6. Wean supplemental oxygen to maintain saturations at or above 90%. 7. Encourage incentive spirometer use and mobilize patient as tolerated. IMPRESSIONS: 1. Acute on chronic combined respiratory failure The patient is supposed to be utilizing 3 L/min of supplemental oxygen with exertion. However, he readily admits that he is not utilizing the supplemental O2 as prescribed. He did have upper lobe predominant groundglass changes on CT, which could be related to an underlying pulmonary infectious process, but cultures are negative. Patient was initiated on IV Lasix and has been tolerating well. Patient has had some improvement in respiratory status. Continue to recommend BiPAP with sleep. 2. Heart failure with preserved ejection fraction/pulmonary hypertension/intermittent bradycardia Repeat surface echocardiogram was largely unchanged from previous without evidence of RV dysfunction or significant pulmonary hypertension. Cardiology is currently following due to periods of bradycardia. Monitor off of labetalol therapy. The patient transitioned from p.o. to IV diuretic regimen. Renal function appears to be tolerating well. This is complicated by patient's current urological situation. However, patient appears to have responded to Prieto placement 3. Chronic COPD/obstructive sleep apnea The patient regularly follows with myself on an outpatient basis. Recommend continuing bronchodilators as ordered. Pap therapy will be continued. 4. Hematuria Patient has had some improvement in hematuria. Patient is getting intermittent irrigation and continues with mehul-colored urine. No significant retention or bladder spasms have been noted. 5. Hypertension/hyperlipidemia/anemia/chronic kidney disease/obesity/diabetes Complicates care, management, recovery and prognosis. Continue sliding scale insulin coverage. Physical therapy to work with the patient. Code Visit Inpatient E&M: 61727 Subs Hosp L3
[2018-11-13] MEDS: Budesonide Respules 0.5 MG/2 ML AMPUL.NEB. INHALATION ×2 (07:04→18:42)
[2018-11-13] MEDS: Ipratropium/Albuterol Sulfate 3 ML AMPUL.NEB INHALATION ×3 (07:04→18:42)
--- NOTE | 2018-11-13 08:07 | PCM.PN.CARD ---
Subjectve: The patient appears to be resting comfortably at this time. He denies any acute chest discomfort, acute worsening of his shortness of breath/dyspnea, or obvious palpitations. He does note that when he has had episodes of his SVT, which was successfully treated with IV adenosine 12 mg, he did have discomfort in his chest at that time. Also during that time he was noted to become somewhat hypotensive. His symptoms and his blood pressure normalized once he returned to sinus rhythm. Objective: Vital Signs Temp Pulse Resp BP Pulse Ox 98.2 F 79 14 167/100 H 95 11/13/18 04:00 11/13/18 07:04 11/13/18 07:04 11/13/18 07:00 11/13/18 07:04 Oxygen Flow Rate (L/min) 3 Oxygen Delivery Method Nasal Cannula Weight: 296 lb 4.82 oz Body Mass Index (BMI) 44.8 Intake and Output for Last 24 Hours 11/11/18 11/12/18 11/13/18 23:59 23:59 23:59 Intake Total 1528.33 / 2378.33 2340 / 2460 290.00 / 290.00 Output Total 1100 / 1450 4575 / 5175 1050 / 1050 Balance 428.33 / 928.33 -2235 / -2715 -760.00 / -760.00 General: Awake, Alert, Oriented x 3, Cooperative, No Acute Distress, Obese HEENT: Atraumatic, Normocephalic, PERRL, EOMI, Sclera Non Icteric Oral: Moist Mucosa Neck: Supple, Good ROM, No JVD Lungs: - - Diminished breath sounds bilaterally; scattered rhonchi Cardiovascular: Regular Rhythm, Normal S1, Normal S2 Abdomen: Bowel Sounds Present, Soft, Non Tender Extremities: - - Bilateral lower extremity Dylan wraps Psych/Mental Status: Appropriate 11/13/18 06:10: WBC 10.4, RBC 3.66 L, Hgb 10.3 L, Hct 34.6 L, MCV 94.5 H, MCH 28.1, MCHC 29.8 L, Plt Count 266, MPV 9.8, Immature Gran % (Auto) 0.400, Neut % (Auto) 76.1 H, Lymph % (Auto) 9.4 L, [place] % (Auto) 8.6, Eos % (Auto) 5.2 H, Baso % (Auto) 0.3, Absolute Neuts (auto) 7.9 H, Nucleated RBC % 0 11/13/18 06:10: Sodium 142, Potassium 3.8, Chloride 95 L, Carbon Dioxide 43.0 H, Anion Gap 4 L, BUN 22 H, Creatinine 1.25, Est GFR (MDRD) Af Amer 75, Est GFR (MDRD) Non-Af 62, BUN/Creatinine Ratio 17.6, Glucose 136 H, Calcium 9.2, Phosphorus 3.3, Magnesium 2.0 Rhythm: Sinus rhythm Medical Necessity - Tobacco Use Tobacco Use: Cigarettes Assessment/Plan 1. Sinus bradycardia/PSVT The patient has had intermittent episodes of sinus bradycardia / sinus pauses. 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 He has demonstrated evidence of both bradycardia and tachycardia. He has previously been on beta-lupis therapy with labetalol which she states he tolerated well to the best of his knowledge. 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 Ideally he would be considered for further EP consultation for consideration for permanent pacemaker placement to allow him to take rate limiting medications as well as potentially EPS/RFA of his underlying PSVT. However at the moment he continues with ongoing issues of his pulmonary disease process last infectious disease. Thus, it is not an ideal time for additional invasive cardiovascular therapy/interventions. As he has been placed back on low-dose IV beta-lupis therapy-intermittently. He has tolerated it thus far without recurrent marked sinus bradycardia or prolonged pauses. Perhaps an attempt can be made to reinitiate a low-dose labetalol therapy with monitoring his heart rate and rhythm to assist with his blood pressure control and hopefully avoid any marked sinus bradycardia/prolonged pauses and potentially help to offset any recurrent PSVT. 2. CHF: Acute diastolic There are concerns that he has acute diastolic mediated CHF superimposed upon his pulmonary disease process. At the present time he will need to continue medical support which would include diuretic therapy. He will also continue his pulmonary support. 3. Descending thoracic aortic aneurysm: Chronic dissection Per his radiology report he has a descending thoracic aortic aneurysm with dissection which is chronic and reported without significant change since 2016. At the moment he will continue to be followed. However, this would have to be taken into consideration if he were to have any type of invasive cardiovascular procedure such as a diagnostic cardiac catheterization. If such a procedure were thought to be in his future he may need to be considered to have this performed at a tertiary care center where there is CT surgery and vascular surgery back-up available. 4. Hyperlipidemia He will continue risk factor modification medical therapy as deemed appropriate. 5. Hypertension He will continue medical management. His hydralazine/Apresoline dose will be increased. He states he cannot tolerate amlodipine/Norvasc therapy secondary to a history of lower extremity peripheral pitting edema. An attempt can be made to add additional agents such as nitrates, minoxidil, as well as consideration for reinitiation of a low dose of his orze-yhvirma-arbimnwdr-with continued monitoring of his cardiac rate and rhythm. 6. Diabetes mellitus He will continue under evaluation care per internal medicine. 7. Shortness of breath/dyspnea He does present with worsening shortness of breath and dyspnea. It is thought this is related to a combination of his underlying decreased diastolic compliance and diastolic mediated CHF as well as his underlying pulmonary condition. 8. Obstructive sleep apnea He will continue evaluation care per internal medicine and pulmonology/critical care medicine. 9. COPD He is reported as having COPD. He will continue evaluation care per internal medicine and pulmonology/critical care medicine. 10. Secondary pulmonary hypertension Based upon his recent echocardiogram is estimated RV systolic pressure was 31 mmHg which would be mildly elevated. He will need continued medical therapy and pulmonary support. 11. Respiratory failure He was diagnosed with acute respiratory failure. Again this may be a combination of his cardiopulmonary condition. At the present time, based upon his ongoing pulmonary disease process, he is going to undergo IV diuresis. Hopefully this will assist with his pulmonary process. 12. Renal insufficiency He does have an element of chronic renal insufficiency. He will continue medical management. Comment: The patient's case was discussed and reviewed with the patient. This note was generated using a voice recognition system and there may be incorrect words, spelling or punctuation that were not noted when reviewing the office note prior to saving.
[2018-11-13 08:15] LABS: Bedside Glucose 115 mg/dL (70-110)
--- NOTE | 2018-11-13 10:21 | CASEMGMT ---
RN CM NOTE: participated in interdisciplinary rounds. Continues on Bipap PRN, PT/OT to work with pt today. Pt became tachycardic during therapy yesterday. Pt has Oxygen/Cpap at home. Will follow for dc planning needs, PT/OT recommendations. Sheri MAGANAN RN ACM
[2018-11-13] MEDS: Labetalol 100 MG Tablet 50 MG PO ×2 (10:33→21:52)
[2018-11-13] MEDS: Pantoprazole Sodium 20 MG Tablet PO (10:33)
[2018-11-13] MEDS: Losartan Potassium 100 MG Tablet PO (10:33)
[2018-11-13] MEDS: Tamsulosin HCl 0.4 MG Capsule PO ×2 (10:33→21:52)
[2018-11-13] MEDS: Aspirin 81 MG TAB.CHEW PO (10:33)
[2018-11-13] MEDS: Furosemide 40 MG/4 ML Vial IV ×2 (10:33→16:38)
[2018-11-13] MEDS: Dorzolamide HCL/Timolol 10 ml Bottle 1 DRP OPHTHALMIC ×2 (10:34→21:51)
[2018-11-13] MEDS: BRIMONIDINE 0.2% 5ML BOTTLE 1 DRP OPHTHALMIC ×2 (10:34→21:51)
[2018-11-13] MEDS: CHLORHEXIDINE GLUC 2% CLOTH 1 EACH TOWELETTE TOPICAL (10:35)
[2018-11-13 11:46] LABS: Bedside Glucose 175 mg/dL (70-110)
--- NOTE | 2018-11-13 12:05 | NURSING ---
wound photo: right posterolateral lower leg
--- NOTE | 2018-11-13 12:06 | NURSING ---
wound photo: left cross
[2018-11-13] MEDS: Insulin Lispro 100 UNIT/ML INSULN.PEN SC ×2 (12:32→16:35)
--- NOTE | 2018-11-13 13:52 | PCM.PN.BLA ---
Progress Note Urine is clear today no more spasms on flomax bid maybe will d/c sanchez tomorrow for a TOV?
[2018-11-13] MEDS: Isosorbide DN 10 MG Tablet PO ×2 (13:53→21:52)
[2018-11-13 16:55] LABS: Bedside Glucose 160 mg/dL (70-110)
--- NOTE | 2018-11-13 19:39 | PCM.PROGNOTE ---
Patient Problems: Active and Suspected Problems (Last Reviewed 10/08/18 @ 14:06 by Laine Jeronimo) Acute respiratory failure with hypoxia and hypercapnia (Acute) Bilateral pulmonary infiltrates on CXR (Acute) Bradycardia (Acute) CHF (congestive heart failure) (Acute) Thoracic aortic aneurysm, ruptured (Acute) Subjective: Patient was seen and examined today, he appears stable to be transferred to PCU for further care. Patient is on nasal cannula at this time, I talked with wound care concerning his leg wounds, wound care does not feel the right leg wound is infected at this time, his case was discussed with critical care, critical care request that the patient received 5 full days of IV antibiotics. - Physical Exam General: Alert, Oriented x3, Cooperative, No apparent distress HEENT: Atraumatic, PERRLA, EOMI, Normocephalic Oral: Moist Mucosa Neck: Supple, Trachea Midline, Thyroid Normal Size and Texture Lungs: Clear to auscultation, Normal air movement, No rhonchi, No wheeze Cardiovascular: Regular rate, Regular Rhythm, Normal S1, Normal S2, No murmurs Abdomen: Bowel Sounds Present, Soft, Non Tender, Non-Distended, Obese Extremities: No clubbing, No cyanosis, Capillary Refill Less than 3 Seconds, Edema - Generalized lower extremity edema is noted bilaterally which is not severe Skin: No rashes, Ulcer/ Wound - Stasis skin wound is noted over the patient's right lower leg on the lateral aspect, it does not appear to be draining purulent material, this wound is approximately 3 to 4 cm in diameter Neurological: Cranial nerves II-XII grossly intact, Neuro grossly intact, Sensory exam intact to light touch and pain, Coordination normal Psych/Mental Status: Normal Affect, Appropriate, Alert and oriented to time, place, person, mood and affect Vital Signs Temp Pulse Resp BP Pulse Ox 98.3 F 86 18 141/86 H 99 11/13/18 16:43 11/13/18 19:00 11/13/18 18:43 11/13/18 16:43 11/13/18 16:43 Oxygen Flow Rate (L/min) 5 Oxygen Delivery Method Bi-pap Weight: 134.4 kg Body Mass Index (BMI) 44.8 Intake and Output for Last 24 Hours 11/11/18 11/12/18 11/13/18 23:59 23:59 23:59 Intake Total 1528.33 / 2378.33 2340 / 2460 990.00 / 990.00 Output Total 1100 / 1450 4575 / 5175 1850 / 1850 Balance 428.33 / 928.33 -2235 / -2715 -860.00 / -860.00 Microbiology Past 72 Hours 11/11/18 23:00 Urine Culture - Preliminary Urine Catheter - Prieto Culture exhibits no growth. 11/09/18 01:00 Gram Stain - Final Wound - Leg, Right Wound Culture - Final Streptococcus agalactiae (B) Staphylococcus capitis Pseudomonas aeroginosa Serratia marcescens Meth. resistant Staph. aureus 11/11/18 23:00 Stool Occult Blood ([place]) - Final Stool Occult Blood Positive 11/09/18 08:00 Gram Stain - Final Sputum, Expectorated/Coughed Respiratory Culture - Final Mixed normal respiratory bernabe. No Streptococcus pneumoniae, beta-hemolytic Streptococcus or Staphylococcus aureus isolated. Laboratory Tests Past 24 Hrs 11/13/18 11/13/18 06:10 06:10 WBC 10.4 RBC 3.66 L Hgb 10.3 L Hct 34.6 L MCV 94.5 H MCH 28.1 MCHC 29.8 L RDW Std Deviation 52.4 H RDW Coeff of Johanna 15.0 H Plt Count 266 MPV 9.8 Immature Gran % (Auto) 0.400 Neut % (Auto) 76.1 H Lymph % (Auto) 9.4 L [place] % (Auto) 8.6 Eos % (Auto) 5.2 H Baso % (Auto) 0.3 Absolute Neuts (auto) 7.9 H Absolute Lymphs (auto) 0.98 Nucleated RBC % 0 Sodium 142 Potassium 3.8 Chloride 95 L Carbon Dioxide 43.0 H Anion Gap 4 L BUN 22 H Creatinine 1.25 Estim Creat Clear Calc 59.70 Est GFR (MDRD) Af Amer 75 Est GFR (MDRD) Non-Af 62 BUN/Creatinine Ratio 17.6 Glucose 136 H Calcium 9.2 Phosphorus 3.3 Magnesium 2.0 POC Glucose 11/13/18 11/13/18 11/13/18 16:34 11:41 08:07 POC Glucose 160 H 175 H 115 H 11/12/18 21:07 POC Glucose 142 H Medical Necessity - Tobacco Use Tobacco Use: Cigarettes Assessment/Plan All Active Problems (Last Reviewed 10/08/18 @ 14:06 by Laine Jeronimo) Acute respiratory failure with hypoxia and hypercapnia (Acute) Bilateral pulmonary infiltrates on CXR (Acute) Bradycardia (Acute) CHF (congestive heart failure) (Acute) Thoracic aortic aneurysm, ruptured (Acute) Ulcer of right lower extremity (Acute) Chronic cutaneous venous stasis ulcer (Resolved) #1 acute combined respiratory failure on a backdrop of chronic minor respiratory failure-critical care is monitoring the patient's respiratory status and making appropriate adjustments of his BiPAP and supplemental oxygen, patient is stable for transfer to the floor at this time #2 acute on chronic diastolic congestive heart failure-cardiology is participating in his care #3 chronic stasis wound to right lower extremity-antibiotics will be continued another 24 hours #4 chronic obstructive pulmonary disease-noncompliant with oxygen usage #5 obstructive sleep apnea #6 type 2 diabetes-blood sugars will be monitored and sliding scale insulin will be adjusted as needed #7 bradycardia-etiology not completely clear, patient is currently off of any beta-lupis therapy, cardiology seeing the patient #8 Paroxysmal SVT-patient is a normal sinus rhythm currently #9 hyperlipidemia #10 osteoarthritis #11 stage III chronic kidney disease secondary to type 2 diabetes #12 iron deficiency anemia Code Visit Inpatient E&M: 44062 Subs Hosp L2
[2018-11-13] MEDS: Latanoprost 0.005% 1 Bottle 1 DRP OPHTHALMIC (21:44)
[2018-11-13 22:06] LABS: Bedside Glucose 138 mg/dL (70-110)
[2018-11-14] VITALS (23 sets, daily range): BP systolic 121–166; BP diastolic 59–80; PULSE 75–103; RESP 12–26; TEMP 36.3–36.6; O2SAT 91–100
[2018-11-14] MEDS: Isosorbide DN 10 MG Tablet PO ×3 (06:22→21:41)
[2018-11-14] MEDS: Insulin Lispro 100 UNIT/ML INSULN.PEN SC ×4 (06:22→21:42)
[2018-11-14] MEDS: hydrALAZINE 50 MG Tablet 100 MG PO ×3 (06:22→21:42)
[2018-11-14 06:31] LABS: Bedside Glucose 159 mg/dL (70-110)
[2018-11-14] MEDS: Budesonide Respules 0.5 MG/2 ML AMPUL.NEB. INHALATION ×2 (06:51→19:27)
[2018-11-14] MEDS: Ipratropium/Albuterol Sulfate 3 ML AMPUL.NEB INHALATION ×3 (06:51→19:27)
[2018-11-14 07:29] LABS: BUN 23 mg/dL (7-18); BUN/Creat Ratio 15.8 RATIO (10-20); Carbon Dioxide > 45.0 mmol/L (21.0-32.0); Chloride 95 mmol/L (98-107); Creatinine, Serum 1.46 mg/dL (0.70-1.30); EST Glomerular Filtration Rate 52 mL/min (>60); Est Glom Filt Rate - Afr Amer 62 mL/min (>60); Estimated Creatinine Clearance 51.11 ml/min; Glucose 137 mg/dL (74-106); Potassium 4.3 mmol/L (3.5-5.1); Sodium Level 140 mmol/L (136-145)
--- NOTE | 2018-11-14 10:21 | PN.CARD_ITS ---
Subjectve: The patient is awake and alert. He denies any episodes at this time of ongoing chest discomfort. He denies any sensation of rapid heart rates. He believes his breathing has improved overall. Objective: Vital Signs Temp Pulse Resp BP Pulse Ox 97.9 F 80 21 H 150/80 H 91 11/14/18 03:35 11/14/18 10:00 11/14/18 10:00 11/14/18 03:35 11/14/18 10:00 Oxygen Flow Rate (L/min) 5 Oxygen Delivery Method Bi-pap Weight: 296 lb 8.348 oz Body Mass Index (BMI) 44.8 Intake and Output for Last 24 Hours 11/12/18 11/13/18 11/14/18 23:59 23:59 23:59 Intake Total 2340 / 2460 1695.83 / 1695.83 99.17 / 99.17 Output Total 4575 / 5175 2200 / 2200 350 / 350 Balance -2235 / -2715 -504.17 / -504.17 -250.83 / -250.83 General: Awake, Alert, Oriented x 3, Cooperative, No Acute Distress HEENT: Atraumatic, Normocephalic, PERRL Oral: Moist Mucosa Neck: Supple, Good ROM, No JVD Lungs: Rhonchi Cardiovascular: Regular Rhythm, Normal S1, Normal S2 Abdomen: Bowel Sounds Present, Soft, Non Tender Extremities: - - Positive bilateral Dylan wraps Psych/Mental Status: Appropriate 11/14/18 06:05: Sodium 140, Potassium 4.3, Chloride 95 L, Carbon Dioxide > 45.0 H*, Anion Gap TNP, BUN 23 H, Creatinine 1.46 H, Est GFR (MDRD) Af Amer 62, Est GFR (MDRD) Non-Af 52 L, BUN/Creatinine Ratio 15.8, Glucose 137 H, Calcium 9.0 Rhythm: Sinus rhythm; one episode of PSVT with spontaneous resolution to sinus rhythm Medical Necessity - Tobacco Use Tobacco Use: Cigarettes Assessment/Plan 1. Sinus bradycardia/PSVT The patient has had intermittent episodes of sinus bradycardia / sinus pauses. 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 He has demonstrated evidence of both bradycardia and tachycardia. He has previously been on beta-lupis therapy with labetalol which she states he tolerated well to the best of his knowledge. 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 Ideally he would be considered for further EP consultation for consideration for permanent pacemaker placement to allow him to take rate limiting medications as well as potentially EPS/RFA of his underlying PSVT. However at the moment he continues with ongoing issues of his pulmonary disease process last infectious disease. Thus, it is not an ideal time for additional invasive cardiovascular therapy/interventions. He has been placed back on low-dose beta-lupis therapy with his labetalol. Thus far he has had no bradycardic events. He has had one PSVT event with spontaneous resolution to sinus rhythm. At the present time his beta-lupis dose will be increased to labetalol 100 mg twice daily. Hopefully he will have no recurrent bradycardic events or pauses and hopefully this will help with his PSVT. 2. CHF: Acute diastolic There are concerns that he has acute diastolic mediated CHF superimposed upon his pulmonary disease process. At the present time he will need to continue medical support which would include diuretic therapy. He will also continue his pulmonary support. He was asked to have a follow-up chest x-ray to reevaluate his cardiopulmonary status. 3. Descending thoracic aortic aneurysm: Chronic dissection Per his radiology report he has a descending thoracic aortic aneurysm with dissection which is chronic and reported without significant change since 2016. At the moment he will continue to be followed. However, this would have to be taken into consideration if he were to have any type of invasive cardiovascular procedure such as a diagnostic cardiac catheterization. If such a procedure were thought to be in his future he may need to be considered to have this performed at a tertiary care center where there is CT surgery and vascular surge ry back-up available. 4. Hyperlipidemia He will continue risk factor modification medical therapy as deemed appropriate. 5. Hypertension He will continue medical management. His hydralazine/Apresoline dose will be increased. He states he cannot tolerate amlodipine/Norvasc therapy secondary to a history of lower extremity peripheral pitting edema. An attempt can be made to add additional agents such as nitrates, minoxidil, as well as consideration for reinitiation of a low dose of his bguv-syfmuca-alskwvesa-with continued monitoring of his cardiac rate and rhythm. 6. Diabetes mellitus He will continue under evaluation care per internal medicine. 7. Shortness of breath/dyspnea He does present with worsening shortness of breath and dyspnea. It is thought this is related to a combination of his underlying decreased diastolic compliance and diastolic mediated CHF as well as his underlying pulmonary condition. 8. Obstructive sleep apnea He will continue evaluation care per internal medicine and pulmonology/critical care medicine. 9. COPD He is reported as having COPD. He will continue evaluation care per internal medicine and pulmonology/critical care medicine. 10. Secondary pulmonary hypertension Based upon his recent echocardiogram is estimated RV systolic pressure was 31 mmHg which would be mildly elevated. He will need continued medical therapy and pulmonary support. 11. Respiratory failure He was diagnosed with acute respiratory failure. Again this may be a combination of his cardiopulmonary condition. He will continue medical management. He is going to have a follow-up chest x-ray to reassess his cardiopulmonary status. 12. Renal insufficiency He does have an element of chronic renal insufficiency. He will continue medical management. Comment: The patient's case was discussed and reviewed with the patient. This note was generated using a voice recognition system and there may be incorrect words, spelling or punctuation that were not noted when reviewing the office note prior to saving.
[2018-11-14] MEDS: BRIMONIDINE 0.2% 5ML BOTTLE 1 DRP OPHTHALMIC ×2 (10:33→21:41)
[2018-11-14] MEDS: Dorzolamide HCL/Timolol 10 ml Bottle 1 DRP OPHTHALMIC ×2 (10:33→21:41)
[2018-11-14] MEDS: Furosemide 40 MG/4 ML Vial IV (10:35)
[2018-11-14] MEDS: Aspirin 81 MG TAB.CHEW PO (10:40)
[2018-11-14] MEDS: Losartan Potassium 100 MG Tablet PO (10:40)
[2018-11-14] MEDS: Pantoprazole Sodium 20 MG Tablet PO (10:41)
[2018-11-14] MEDS: Tamsulosin HCl 0.4 MG Capsule PO ×2 (10:41→21:41)
[2018-11-14] MEDS: 0.9% NaCl Peripheral Flush Adult/Peds IV ×2 (10:42→18:27)
--- NOTE | 2018-11-14 11:06 | PCM.PN.PUL ---
Patient Problems: Active and Suspected Problems (Last Reviewed 10/08/18 @ 14:06 by Laine Jeronimo) Acute respiratory failure with hypoxia and hypercapnia (Acute) Bilateral pulmonary infiltrates on CXR (Acute) Bradycardia (Acute) CHF (congestive heart failure) (Acute) Thoracic aortic aneurysm, ruptured (Acute) Subjective: Patient transferred out of the intensive care unit yesterday. Patient has been between 3 and 5 L nasal cannula to maintain saturations. Patient has been using BiPAP with sleep. Patient overall states that he feels weaker than baseline, but overall is improved. Patient continues to have a Prieto in place with good drainage. Patient states bladder spasms have resolved. - Physical Exam General: Alert, Oriented x3, Cooperative, No apparent distress, Well developed, Well nourished, - - Morbidly obese. Speaking in full sentences. HEENT: Atraumatic, PERRLA, EOMI, Normocephalic, - - No scleral icterus or injection noted. Oral: Moist Mucosa, No Gingival or Mucosal Lesions/ Ulcerations Neck: Supple, No JVD, No Nodes, Trachea Midline Lungs: No rhonchi, No wheeze, No rales, Diminished Cardiovascular: Regular rate, Regular Rhythm, Normal S1, Normal S2, Murmur - Grade 2 out of 6 systolic ejection murmur at the right sternal border, No rub noted, No Gallop Abdomen: Bowel Sounds Present, Soft, Non Tender, Non-Distended, Obese Extremities: No cyanosis, Capillary Refill Less than 3 Seconds, Edema - Improving Skin: - - No significant change compared to previous Musculoskeletal: No Tenderness to Palpation of Joints or Extremities Lymphatic: No Cervical, Supraclavicular, or Inguinal Adenopathy Neurological: Cranial nerves II-XII grossly intact, Neuro grossly intact, Motor Exam 5/5 strength throughout Psych/Mental Status: Alert and oriented to time, place, person, mood and affect Vital Signs Temp Pulse Resp BP Pulse Ox 36.6 C 80 21 H 150/80 H 91 11/14/18 03:35 11/14/18 10:00 11/14/18 10:00 11/14/18 03:35 11/14/18 10:00 Oxygen Flow Rate (L/min) 5 Oxygen Delivery Method Bi-pap Weight: 134.5 kg Body Mass Index (BMI) 44.8 Intake and Output for Last 24 Hours 11/12/18 11/13/18 11/14/18 23:59 23:59 23:59 Intake Total 2340 / 2460 1695.83 / 1695.83 99.17 / 99.17 Output Total 4575 / 5175 2200 / 2200 350 / 350 Balance -2235 / -2715 -504.17 / -504.17 -250.83 / -250.83 Microbiology Past 72 Hours 11/11/18 23:00 Urine Culture - Final Urine Catheter - Prieto Culture exhibits no growth. 11/09/18 01:00 Gram Stain - Final Wound - Leg, Right Wound Culture - Final Streptococcus agalactiae (B) Staphylococcus capitis Pseudomonas aeroginosa Serratia marcescens Meth. resistant Staph. aureus 11/11/18 23:00 Stool Occult Blood ([place]) - Final Stool Occult Blood Positive 11/09/18 08:00 Gram Stain - Final Sputum, Expectorated/Coughed Respiratory Culture - Final Mixed normal respiratory bernabe. No Streptococcus pneumoniae, beta-hemolytic Streptococcus or Staphylococcus aureus isolated. Laboratory Tests Past 24 Hrs 11/14/18 06:05 Sodium 140 Potassium 4.3 Chloride 95 L Carbon Dioxide > 45.0 H* Anion Gap TNP BUN 23 H Creatinine 1.46 H Estim Creat Clear Calc 51.11 Est GFR (MDRD) Af Amer 62 Est GFR (MDRD) Non-Af 52 L BUN/Creatinine Ratio 15.8 Glucose 137 H Calcium 9.0 POC Glucose 11/14/18 11/13/18 11/13/18 06:21 21:50 16:34 POC Glucose 159 H 138 H 160 H 11/13/18 11:41 POC Glucose 175 H Medical Necessity - Tobacco Use Tobacco Use: Cigarettes Assessment/Plan All Active Problems (Last Reviewed 10/08/18 @ 14:06 by Laine Jeronimo) Acute respiratory failure with hypoxia and hypercapnia (Acute) Bilateral pulmonary infiltrates on CXR (Acute) Bradycardia (Acute) CHF (congestive heart failure) (Acute) Thoracic aortic aneurysm, ruptured (Acute) Ulcer of right lower extremity (Acute) Chronic cutaneous venous stasis ulcer (Resolved) RECOMMENDATIONS: 1. Likely okay to complete 7 days of antibiotics 2. Continue BiPAP with naps and nightly. 3. Monitor with telemetry 4. Transition to baseline Lasix therapy 5. Wean supplemental oxygen to maintain saturations at or above 90%. 6. Encourage incentive spirometer use and mobilize patient as tolerated. IMPRESSIONS: 1. Acute on chronic combined respiratory failure The patient is supposed to be utilizing 3 L/min of supplemental oxygen with exertion. However, he readily admits that he is not utilizing the supplemental O2 as prescribed. He did have upper lobe predominant groundglass changes on CT, which could be related to an underlying pulmonary infectious process, but cultures are negative. Patient has improved on IV Lasix, but is now showing signs of contraction alkalosis. We will transition to baseline p.o. Lasix therapy. Continue to recommend BiPAP with sleep. Patient will need a walking oximetry prior to discharge. 2. Heart failure with preserved ejection fraction/pulmonary hypertension/intermittent bradycardia Repeat surface echocardiogram was largely unchanged from previous without evidence of RV dysfunction or significant pulmonary hypertension. Cardiology is currently following due to periods of bradycardia. Patient appears to be tolerating beta-lupis well. Renal function appears to be tolerating well. This is complicated by patient's current urological situation. However, patient appears to have responded to Prieto placement 3. Chronic COPD/obstructive sleep apnea The patient regularly follows with myself on an outpatient basis. Recommend continuing bronchodilators as ordered. Pap therapy will be continued. 4. Hematuria Patient has had some improvement in hematuria. Patient is getting intermittent irrigation and continues with visible clots in the Prieto tubing. No significant retention or bladder spasms have been noted. 5. Hypertension/hyperlipidemia/anemia/chronic kidney disease/obesity/diabetes Complicates care, management, recovery and prognosis. Continue sliding scale insulin coverage. Physical therapy to work with the patient. Code Visit Inpatient E&M: 96970 Subs Hosp L2
--- NOTE | 2018-11-14 11:40 | RAD_ITS ---
STUDY: X-RAY CHEST REASON FOR EXAM: Male, 63 years old. Shortness of breath. Respiratory failure. TECHNIQUE: Single AP portable view of the chest. COMPARISON: Comparison is made with prior study dated November 11, 2018. FINDINGS: EKG electrodes are seen. Gastric congestion and mild CHF. There has been improvement as compared to prior study. Continued left basilar infiltrate and/or atelectasis. This is unchanged. Blunting of left costophrenic angle. Normal size heart. Normal mediastinum and ekta. Normal visualized pulmonary arteries. There is atherosclerotic tortuosity of the aortic arch and descending thoracic aorta. There are diffuse degenerative changes of the visualized thoracic spine. Normal visualized ribs, clavicles, and shoulders. There is no demonstrated abnormality of the visualized soft tissue structures of the upper abdomen. RAD/Chest 1 View (Portable) IMPRESSION: Persistent left lower lobe infiltrate and small left effusion. Mild degree of residual vascular congestion. Electronically Signed: Michael Gaytan, at 15:40 EDT , Service support ,
[2018-11-14 12:30] LABS: Bedside Glucose 168 mg/dL (70-110)
[2018-11-14] MEDS: Acetaminophen 325 MG Tablet 650 MG PO ×2 (13:18→21:41)
[2018-11-14] MEDS: traMADol 50 MG Tablet PO ×2 (13:18→20:18)
--- NOTE | 2018-11-14 14:15 | CASEMGMT ---
SW met with patient, introduced self and role at [facility]. SW asked patient if he feels he will be strong enough to go home at discharge. He said he will do whatever the doctor recommends. DEVIN printed a list of in facilities that are in network with patient's insurance. DEVNI gave patient this list. He said the only place he will go is [facility]. DEIVN told him will check on bed availability. DEVIN did leave the list in the room. DEVIN called [facility] and she said they will have a bed in TCU. Will need to wait on insurance to authorize. Plan: [facility] pending insurance approval. Tavia ROSE
--- NOTE | 2018-11-14 15:41 | NURSING ---
this RN has reviewed and is agreeable with all charting completed by Anastasia Montes student nurse
[2018-11-14 16:10] LABS: Bedside Glucose 205 mg/dL (70-110)
[2018-11-14] MEDS: Furosemide 40 MG Tablet PO (17:33)
[2018-11-14] MEDS: Fluticasone 0.05% 1 SPRAY NASAL.SRY 2 SPRAY NASAL (17:34)
--- NOTE | 2018-11-14 20:22 | PCM.PROGNOTE ---
Subjective: Patient was seen and examined today, he remains on nasal cannula O2. Physical therapy and Occupational Therapy saw the patient today and he did not do well, I talked briefly with the patient about going to a longterm facility for short-term inpatient rehab and he has agreed. He states that TCU would be acceptable for him. Cardiology placed the patient back on low-dose beta-lupis therapy with labetalol and increase the dose today. Stop the patient's IV antibiotics today-he does not appear to have an active infection at this time. - Physical Exam General: Alert, Oriented x3, Cooperative, No apparent distress HEENT: Atraumatic, PERRLA, EOMI, Normocephalic Oral: Moist Mucosa Neck: Supple, Trachea Midline, Thyroid Normal Size and Texture Lungs: Clear to auscultation, No rhonchi, No wheeze, No rales, Diminished Cardiovascular: Regular rate, Regular Rhythm, Normal S1, Normal S2, No murmurs Abdomen: Bowel Sounds Present, Soft, Non Tender, Non-Distended Extremities: No clubbing, No cyanosis, Capillary Refill Less than 3 Seconds Skin: No rashes, Ulcer/ Wound - Stasis ulceration is noted to the patient's right lower extremity as described previously Musculoskeletal: No Tenderness to Palpation of Joints or Extremities Neurological: Cranial nerves II-XII grossly intact, Neuro grossly intact, Sensory exam intact to light touch and pain, Coordination normal Psych/Mental Status: Normal Affect, Appropriate, Alert and oriented to time, place, person, mood and affect Vital Signs Temp Pulse Resp BP Pulse Ox 97.4 F L 103 H 18 133/59 H 95 11/14/18 15:20 11/14/18 19:00 11/14/18 15:20 11/14/18 15:20 11/14/18 15:20 Oxygen Flow Rate (L/min) 3 Oxygen Delivery Method Nasal Cannula Weight: 134.5 kg Body Mass Index (BMI) 44.8 Intake and Output for Last 24 Hours 11/12/18 11/13/18 11/14/18 23:59 23:59 23:59 Intake Total 2340 / 2460 1695.83 / 1695.83 1099.17 / 1099.17 Output Total 4575 / 5175 2200 / 2200 1350 / 1350 Balance -2235 / -2715 -504.17 / -504.17 -250.83 / -250.83 Microbiology Past 72 Hours 11/11/18 23:00 Urine Culture - Final Urine Catheter - Prieto Culture exhibits no growth. 11/09/18 01:00 Gram Stain - Final Wound - Leg, Right Wound Culture - Final Streptococcus agalactiae (B) Staphylococcus capitis Pseudomonas aeroginosa Serratia marcescens Meth. resistant Staph. aureus 11/11/18 23:00 Stool Occult Blood ([place]) - Final Stool Occult Blood Positive Laboratory Tests Past 24 Hrs 11/14/18 06:05 Sodium 140 Potassium 4.3 Chloride 95 L Carbon Dioxide > 45.0 H* Anion Gap TNP BUN 23 H Creatinine 1.46 H Estim Creat Clear Calc 51.11 Est GFR (MDRD) Af Amer 62 Est GFR (MDRD) Non-Af 52 L BUN/Creatinine Ratio 15.8 Glucose 137 H Calcium 9.0 POC Glucose 11/14/18 11/14/18 11/14/18 16:05 12:23 06:21 POC Glucose 205 H 168 H 159 H 11/13/18 21:50 POC Glucose 138 H Medical Necessity - Tobacco Use Tobacco Use: Cigarettes Assessment/Plan All Active Problems (Last Reviewed 10/08/18 @ 14:06 by Laine Jeronimo) Acute respiratory failure with hypoxia and hypercapnia (Acute) Bilateral pulmonary infiltrates on CXR (Acute) Bradycardia (Acute) CHF (congestive heart failure) (Acute) Thoracic aortic aneurysm, ruptured (Acute) Chronic cutaneous venous stasis ulcer (Resolved) #1 acute combined respiratory failure on a backdrop of chronic minor respiratory failure-critical care is monitoring the patient's respiratory status and making appropriate adjustments of his BiPAP and supplemental oxygen, patient is stable at this time #2 acute on chronic diastolic congestive heart failure-cardiology is participating in his care #3 chronic stasis wound to right lower extremity-antibiotics will be continued another 24 hours #4 chronic obstructive pulmonary disease-noncompliant with oxygen usage #5 obstructive sleep apnea #6 type 2 diabetes-blood sugars will be monitored and sliding scale insulin will be adjusted as needed #7 bradycardia-etiology not completely clear, patient is currently off of any beta-lupis therapy, cardiology seeing the patient #8 Paroxysmal SVT-patient is a normal sinus rhythm currently #9 hyperlipidemia #10 osteoarthritis #11 stage III chronic kidney disease secondary to type 2 diabetes #12 iron deficiency anemia Code Visit Inpatient E&M: 47341 Subs Hosp L2
[2018-11-14] MEDS: Latanoprost 0.005% 1 Bottle 1 DRP OPHTHALMIC (21:36)
[2018-11-14] MEDS: Labetalol 100 MG Tablet PO (21:41)
[2018-11-14 21:51] LABS: Bedside Glucose 164 mg/dL (70-110)
[2018-11-15] VITALS (14 sets, daily range): BP systolic 110–138; BP diastolic 56–78; PULSE 75–101; RESP 12–20; TEMP 36.7–37.1; O2SAT 91–100
[2018-11-15] MEDS: Ipratropium/Albuterol Sulfate 3 ML AMPUL.NEB INHALATION ×2 (06:42→12:57)
[2018-11-15] MEDS: Budesonide Respules 0.5 MG/2 ML AMPUL.NEB. INHALATION (06:42)
[2018-11-15 06:50] LABS: Bedside Glucose 137 mg/dL (70-110)
[2018-11-15] MEDS: hydrALAZINE 50 MG Tablet 100 MG PO ×2 (07:00→14:54)
[2018-11-15] MEDS: Isosorbide DN 10 MG Tablet PO ×2 (07:01→14:55)
--- NOTE | 2018-11-15 07:12 | PCM.PN.BLA ---
Progress Note remove sanchez today to see if can void on his on. on flomax call with questions.
[2018-11-15 07:29] LABS: BUN 25 mg/dL (7-18); BUN/Creat Ratio 17.1 RATIO (10-20); Calcium,Total 8.7 mg/dL (8.5-10.1); Carbon Dioxide > 45.0 mmol/L (21.0-32.0); Chloride 95 mmol/L (98-107); Creatinine, Serum 1.46 mg/dL (0.70-1.30); EST Glomerular Filtration Rate 52 mL/min (>60); Est Glom Filt Rate - Afr Amer 62 mL/min (>60); Estimated Creatinine Clearance 51.11 ml/min; Glucose 129 mg/dL (74-106); Magnesium 1.9 mg/dL (1.6-2.6); Potassium 3.9 mmol/L (3.5-5.1); Sodium Level 140 mmol/L (136-145)
[2018-11-15] MEDS: Aspirin 81 MG TAB.CHEW PO (09:58)
[2018-11-15] MEDS: Magnesium Oxide 400 MG Tablet 800 MG PO (09:58)
[2018-11-15] MEDS: BRIMONIDINE 0.2% 5ML BOTTLE 1 DRP OPHTHALMIC (09:58)
[2018-11-15] MEDS: Pantoprazole Sodium 20 MG Tablet PO (09:59)
[2018-11-15] MEDS: Tamsulosin HCl 0.4 MG Capsule PO (09:59)
[2018-11-15] MEDS: Dorzolamide HCL/Timolol 10 ml Bottle 1 DRP OPHTHALMIC (09:59)
[2018-11-15] MEDS: Furosemide 40 MG Tablet PO (09:59)
[2018-11-15] MEDS: Losartan Potassium 100 MG Tablet PO (09:59)
[2018-11-15] MEDS: Labetalol 200 MG Tablet PO (10:35)
[2018-11-15] MEDS: Insulin Lispro 100 UNIT/ML INSULN.PEN SC ×2 (11:25→17:51)
[2018-11-15] MEDS: Acetaminophen 325 MG Tablet 650 MG PO (11:27)
[2018-11-15] MEDS: traMADol 50 MG Tablet PO (11:29)
--- NOTE | 2018-11-15 11:35 | CASEMGMT ---
DEVIN let patient know that [facility] will have a bed for him. DEVIN told him we will need to wait on his insurance to approve him. DEVIN told him that he could possibly be discharged to TCU tomorrow. He thanked DEVIN for the update. Plan: d/c to [facility] under skilled level of care pending insurance approval. Tavia ROSE
[2018-11-15 11:40] LABS: Bedside Glucose 190 mg/dL (70-110)
--- NOTE | 2018-11-15 13:17 | PCM.PN.PUL ---
Patient Problems: Active and Suspected Problems (Last Reviewed 10/08/18 @ 14:06 by Laine Jeronimo) Acute respiratory failure with hypoxia and hypercapnia (Acute) Bilateral pulmonary infiltrates on CXR (Acute) Bradycardia (Acute) CHF (congestive heart failure) (Acute) Thoracic aortic aneurysm, ruptured (Acute) Subjective: Patient did well overnight. No acute issues were reported. Patient did have his Prieto removed and has had some hematuria reported. Patient denies any abdominal pain. Patient has been compliant with 3 L nasal cannula. Patient continues to use the BiPAP overnight. - Physical Exam General: Alert, Oriented x3, Cooperative, No apparent distress, - - Morbidly obese. No conversational dyspnea. HEENT: Atraumatic, PERRLA, EOMI, Normocephalic, - - No scleral icterus or injection noted. Oral: Moist Mucosa, No Gingival or Mucosal Lesions/ Ulcerations Neck: Supple, No JVD, No Nodes, Trachea Midline Lungs: No rhonchi, No wheeze, No rales, Diminished, - - Symmetric expansion. No dullness to percussion. Cardiovascular: Regular rate, Regular Rhythm, Normal S1, Normal S2, No murmurs, No rub noted, No Gallop Abdomen: Bowel Sounds Present, Soft, Non Tender, Non-Distended, Obese Extremities: No clubbing, No cyanosis, Edema - Trace bilateral lower extremities Skin: - - No significant change compared to previous Musculoskeletal: No Tenderness to Palpation of Joints or Extremities Lymphatic: No Cervical, Supraclavicular, or Inguinal Adenopathy Neurological: Cranial nerves II-XII grossly intact, Neuro grossly intact, Motor Exam 5/5 strength throughout Psych/Mental Status: Alert and oriented to time, place, person, mood and affect Vital Signs Temp Pulse Resp BP Pulse Ox 36.7 C 82 17 110/56 L 97 11/15/18 11:25 11/15/18 12:10 11/15/18 11:25 11/15/18 11:25 11/15/18 11:25 Oxygen Flow Rate (L/min) 3 Oxygen Delivery Method Nasal Cannula Weight: 135.8 kg Body Mass Index (BMI) 44.8 Intake and Output for Last 24 Hours 11/13/18 11/14/18 11/15/18 23:59 23:59 23:59 Intake Total 1695.83 / 1695.83 1899.17 / 1899.17 1400 / 1400 Output Total 2200 / 2200 1650 / 1650 600 / 600 Balance -504.17 / -504.17 249.17 / 249.17 800 / 800 Microbiology Past 72 Hours 11/11/18 23:00 Urine Culture - Final Urine Catheter - Prieto Culture exhibits no growth. Laboratory Tests Past 24 Hrs 11/15/18 06:26 Sodium 140 Potassium 3.9 Chloride 95 L Carbon Dioxide > 45.0 H* Anion Gap TNP BUN 25 H Creatinine 1.46 H Estim Creat Clear Calc 51.11 Est GFR (MDRD) Af Amer 62 Est GFR (MDRD) Non-Af 52 L BUN/Creatinine Ratio 17.1 Glucose 129 H Calcium 8.7 Magnesium 1.9 POC Glucose 11/15/18 11/15/18 11/14/18 11:22 06:18 21:39 POC Glucose 190 H 137 H 164 H 11/14/18 16:05 POC Glucose 205 H Clinical Impression(s) from Imaging Studies Chest X-Ray 11/14/18 11:40 IMPRESSION: Persistent left lower lobe infiltrate and small left effusion. Mild degree of residual vascular congestion. Electronically Signed: Michael Gaytan, at 15:40 EDT , Service support , Medical Necessity - Tobacco Use Tobacco Use: Cigarettes Assessment/Plan All Active Problems (Last Reviewed 10/08/18 @ 14:06 by Laine Jeronimo) Acute respiratory failure with hypoxia and hypercapnia (Acute) Bilateral pulmonary infiltrates on CXR (Acute) Bradycardia (Acute) CHF (congestive heart failure) (Acute) Thoracic aortic aneurysm, ruptured (Acute) Ulcer of right lower extremity (Acute) Chronic cutaneous venous stasis ulcer (Resolved) RECOMMENDATIONS: 1. Likely okay to complete 7 days of antibiotics 2. Continue BiPAP with naps and nightly. 3. Monitor with telemetry 4. Transition to baseline Lasix therapy 5. Wean supplemental oxygen to maintain saturations at or above 90%. 6. Encourage incentive spirometer use and mobilize patient as tolerated. IMPRESSIONS: 1. Acute on chronic combined respiratory failure The patient is supposed to be utilizing 3 L/min of supplemental oxygen with exertion. However, he readily admits that he is not utilizing the supplemental O2 as prescribed. He did have upper lobe predominant groundglass changes on CT, which could be related to an underlying pulmonary infectious process, but cultures are negative. Patient did improve on IV Lasix, but is now showing signs of contraction alkalosis. We will transition to baseline p.o. Lasix therapy. Continue to recommend BiPAP with sleep. Patient will need a walking oximetry prior to discharge. Patient appears to be euvolemic at this time. 2. Heart failure with preserved ejection fraction/pulmonary hypertension/intermittent bradycardia Repeat surface echocardiogram was largely unchanged from previous without evidence of RV dysfunction or significant pulmonary hypertension. Cardiology is currently following due to periods of bradycardia. Patient appears to be tolerating beta-lupis well. Renal function appears to be tolerating well. This is complicated by patient's current urological situation. Defer to urology on patient's hematuria. No significant change in blood counts noted over hospitalization. 3. Chronic COPD/obstructive sleep apnea The patient regularly follows with myself on an outpatient basis. Recommend continuing bronchodilators as ordered. Pap therapy will be continued. Patient currently on BiPAP therapy. Patient does have CPAP therapy at home. A repeat polysomnogram can be completed as an outpatient if patient feels BiPAP is more effective. 4. Hematuria Patient has had some improvement in hematuria. Patient is getting intermittent irrigation and continues with visible clots in the Prieto tubing. No significant retention or bladder spasms have been noted. 5. Hypertension/hyperlipidemia/anemia/chronic kidney disease/obesity/diabetes Complicates care, management, recovery and prognosis. Continue sliding scale insulin coverage. Physical therapy to work with the patient. Code Visit Inpatient E&M: 50168 Subs Hosp L2
--- NOTE | 2018-11-15 13:20 | PCM.PROGNOTE ---
Patient Problems: Active and Suspected Problems (Last Reviewed 10/08/18 @ 14:06 by Laine Jeronimo) Acute respiratory failure with hypoxia and hypercapnia (Acute) Bilateral pulmonary infiltrates on CXR (Acute) Bradycardia (Acute) CHF (congestive heart failure) (Acute) Thoracic aortic aneurysm, ruptured (Acute) Subjective: No SOB or increased edema. No fever/chills. At baseline O2 and not SOB. No cough. No CP/palp. No LH. Still very weak. Ambulated yesterday with walked and PTOT. Will attempt voiding trial today. - Physical Exam General: Alert, Oriented x3, Cooperative HEENT: Atraumatic, PERRLA, EOMI, Normocephalic Neck: Supple, No JVD, Negative Carotid Bruits Lungs: Clear to auscultation, Normal air movement Cardiovascular: Regular rate, No murmurs Abdomen: Bowel Sounds Present, Soft, Non Tender Extremities: No edema, Capillary Refill Less than 3 Seconds Skin: No rashes, No breakdown Musculoskeletal: No Tenderness to Palpation of Joints or Extremities Neurological: Cranial nerves II-XII grossly intact Psych/Mental Status: Normal Affect, Appropriate, Alert and oriented to time, place, person, mood and affect Vital Signs Temp Pulse Resp BP Pulse Ox 98.0 F 82 17 110/56 L 97 11/15/18 11:25 11/15/18 12:10 11/15/18 11:25 11/15/18 11:25 11/15/18 11:25 Oxygen Flow Rate (L/min) 3 Oxygen Delivery Method Nasal Cannula Weight: 299 lb 6.204 oz Body Mass Index (BMI) 44.8 Intake and Output for Last 24 Hours 11/13/18 11/14/18 11/15/18 23:59 23:59 23:59 Intake Total 1695.83 / 1695.83 1899.17 / 1899.17 1400 / 1400 Output Total 2200 / 2200 1650 / 1650 600 / 600 Balance -504.17 / -504.17 249.17 / 249.17 800 / 800 Microbiology Past 72 Hours 11/11/18 23:00 Urine Culture - Final Urine Catheter - Prieto Culture exhibits no growth. Laboratory Tests Past 24 Hrs 11/15/18 06:26 Sodium 140 Potassium 3.9 Chloride 95 L Carbon Dioxide > 45.0 H* Anion Gap TNP BUN 25 H Creatinine 1.46 H Estim Creat Clear Calc 51.11 Est GFR (MDRD) Af Amer 62 Est GFR (MDRD) Non-Af 52 L BUN/Creatinine Ratio 17.1 Glucose 129 H Calcium 8.7 Magnesium 1.9 POC Glucose 11/15/18 11/15/18 11/14/18 11:22 06:18 21:39 POC Glucose 190 H 137 H 164 H 11/14/18 16:05 POC Glucose 205 H Medical Necessity - Tobacco Use Tobacco Use: Cigarettes Assessment/Plan All Active Problems (Last Reviewed 10/08/18 @ 14:06 by Laine Jeronimo) Acute respiratory failure with hypoxia and hypercapnia (Acute) Bilateral pulmonary infiltrates on CXR (Acute) Bradycardia (Acute) CHF (congestive heart failure) (Acute) Thoracic aortic aneurysm, ruptured (Acute) Ulcer of right lower extremity (Acute) Chronic cutaneous venous stasis ulcer (Resolved) 1. Acute on chronic combined respiratory failure - stable at baseline 2. Acute on chronic diastolic CHF - with contraction alkalosis. Cr mildly up. Off IV lasix. On PO. Change to 40qd, was on 20 qd at home. 3. Nonsustained Vtach, PSVT, bradycardia - lebatolol adjusted. Cardiology following. 4. Urine retention/hematuria - Jose following. Flomax and voiding trial today. 5. [place] - bipap, continue at DC. partial compliance at home 6. T2DM with morbid obesity - continue current therapy 7. CKDIII - stable. 8. COPD - no exacerbation - no wheeze. Not compliant with home O2 regimen. 9. Iron def anemia - continue supplement. Stool occult blood +. Hgb stable. F/u as outpatient. DVT ppx: lovenox DC planning: TCU when appropriate. This patient was seen by Kings Davison PA-C under the supervision of Dr. Hightower.
--- NOTE | 2018-11-15 16:17 | PN.CARD_ITS ---
Subjectve: The patient is awake and alert. He is not currently on BiPAP. He states he is breathing better overall. His lower extremity wounds are being addressed. He has had no new acute complaints of ongoing chest discomfort. There is been no recurrence of his palpitations or tachycardia symptoms. There is been no sensation of loss of consciousness. Objective: Vital Signs Temp Pulse Resp BP Pulse Ox 98.0 F 75 17 117/61 97 11/15/18 11:25 11/15/18 14:54 11/15/18 11:25 11/15/18 14:54 11/15/18 11:25 Oxygen Flow Rate (L/min) 3 Oxygen Delivery Method Nasal Cannula Weight: 299 lb 6.204 oz Body Mass Index (BMI) 44.8 Intake and Output for Last 24 Hours 11/13/18 11/14/18 11/15/18 23:59 23:59 23:59 Intake Total 1695.83 / 1695.83 1899.17 / 1899.17 1400 / 1400 Output Total 2200 / 2200 1650 / 1650 600 / 600 Balance -504.17 / -504.17 249.17 / 249.17 800 / 800 General: Awake, Alert, Oriented x 3, Cooperative, No Acute Distress, Obese HEENT: Atraumatic, Normocephalic, PERRL, EOMI, Sclera Non Icteric Oral: Moist Mucosa Neck: Supple, Good ROM, No JVD Lungs: Rhonchi - Rhonchi: Although clear than previous examination Cardiovascular: Regular Rhythm, Premature Ectopic Beats, Normal S1, Normal S2 Abdomen: Bowel Sounds Present, Soft, Non Tender Extremities: - - Continued bilateral lower extremity Dylan wraps Neurological: No Focal Motor or Sensory Deficit Psych/Mental Status: Appropriate 11/15/18 06:26: Sodium 140, Potassium 3.9, Chloride 95 L, Carbon Dioxide > 45.0 H*, Anion Gap TNP, BUN 25 H, Creatinine 1.46 H, Est GFR (MDRD) Af Amer 62, Est GFR (MDRD) Non-Af 52 L, BUN/Creatinine Ratio 17.1, Glucose 129 H, Calcium 8.7, Magnesium 1.9 Rhythm: Sinus rhythm; PVCs; nonsustained wide-complex tachycardia (6 beats) appearing compatible with nonsustained VT Medical Necessity - Tobacco Use Tobacco Use: Cigarettes Assessment/Plan 1. Sinus bradycardia/PSVT/nonsustained wide-complex tachycardia-nonsustained VT The patient has had a combination of cardiac dysrhythmias. Earlier on in his course, when he was in the ICU, with ongoing respiratory issues, there was evidence of marked sinus bradycardia/pauses (4 to 6 seconds in duration). Status post assisting his respiratory status and holding his beta-lupis he had no subsequent pauses. He was then noted, without beta-lupis, to have episodes of PSVT. His PSVT marah eared to be a reentry mechanism tachycardia as it responded to IV adenosine. As his clinical course has improved he has been started back on his beta- lupis. He has had no recurrent marked sinus bradycardia or pauses. He has had no recurrent PSVT. He did have one episode of a 6 beat nonsustained wide-complex tachycardia concerning for nonsustained VT. This is in the setting of no symptoms and overall preserved LV systolic function/LVEF. The patient believes that he underwent a pharmacologic exercise tolerance test/imaging study in the past which was considered negative. A copy of this study is unavailable for review at this time. At the present time he will continue medical management. This will include advancing his beta-lupis therapy back to labetalol 200 mg 3 times daily. H opefully he will tolerate this without pauses or tachycardia dysrhythmias. Over time as the patient recuperates from his pulmonary disease process it would not be unreasonable to consider, based upon his cardiac dysrhythmia findings, further evaluation of his coronary status, if either noninvasive or invasive study report cannot be retrieved, with further noninvasive or invasive images as deemed appropriate. Also over time he may need to be considered for future EP consultation for possible permanent pacemaker placement as well as reentry mechanism tachycardia EPS/RFA. 2. CHF: Acute diastolic There are concerns that he has acute diastolic mediated CHF superimposed upon his pulmonary disease process. At the present time he will need to continue medical support which would include diuretic therapy. He will also continue his pulmonary support. His follow-up chest x-ray does appear to be somewhat improved. 3. Descending thoracic aortic aneurysm: Chronic dissection Per his radiology report he has a descending thoracic aortic aneurysm with dissection which is chronic and reported without significant change since 2016. At the moment he will continue to be followed. However, this would have to be taken into consideration if he were to have any type of invasive cardiovascular procedure such as a diagnostic cardiac catheterization. If such a procedure were thought to be in his future he may need to be considered to have this performed at a tertiary care center where there is CT surgery and vascular surgery back-up available. 4. Hyperlipidemia He will continue risk factor modification medical therapy as deemed appropriate. 5. Hypertension He will continue medical management. His hydralazine/Apresoline dose will be increased. His beta-lupis dose is being increased again. Hopefully will have no cardiac dysrhythmias or conduction system related issues with that that would prohibit its use at this time. 6. Diabetes mellitus He will continue under evaluation care per internal medicine. 7. Shortness of breath/dyspnea He does present with worsening shortness of breath and dyspnea. It is thought this is related to a combination of his underlying decreased diastolic compliance and diastolic mediated CHF as well as his underlying pulmonary condition. 8. Obstructive sleep apnea He will continue evaluation care per internal medicine and pulmonology/critical care medicine. 9. COPD He is reported as having COPD. He will continue evaluation care per internal medicine and pulmonology/critical care medicine. 10. Secondary pulmonary hypertension Based upon his recent echocardiogram is estimated RV systolic pressure was 31 mmHg which would be mildly elevated. He will need continued medical therapy and pulmonary support. 11. Respiratory failure He was diagnosed with acute respiratory failure. Again this may be a combination of his cardiopulmonary condition. He will continue medical management. 12. Renal insufficiency He does have an element of chronic renal insufficiency. He will continue medical management. Comment: The patient's case was discussed and reviewed with the patient and Dr. Hightower. This note was generated using a voice recognition system and there may be incorrect words, spelling or punctuation that were not noted when reviewing the office note prior to saving.
[2018-11-15 16:45] LABS: Bedside Glucose 154 mg/dL (70-110)
--- NOTE | 2018-11-15 17:54 | TREXTCAR_ITS ---
- Diet 11/09/18 00:07 Diet: Calorie Controlled How many daily calories?: 1800 calorie - Routine Orders/Code Status O2 Liters per Minute: 3 O2 Frequency: Bipap 18/6, rate 12, FIO2 .45 when sleeping Routine Lab Work: BMP - in 5 days, - - fingerstick blood sugars ACQHS- Humalog SQ per fingerstick blood sugars: 200-250: 5 units, 251-300: 10 units SQ, 301- 350: 12 units SQ Code Status: Full Code - Wound(s) anterior L cross Wound Type: nearly healed abrasion Dressing Change: AntiMicrobial (Aquacel AG, etc) latero/posterior RLE, proximal to ankle Wound Type: Stasis Ulcer Dressing Change: AntiMicrobial (Aquacel AG, etc) - Therapies Weight Bearing: Full weight bearing Physical Therapy: Eval and Treat Occupational Therapy: Eval and Treat - Problem/Diagnosis (1) Acute respiratory failure with hypoxia and hypercapnia Status: Acute Current Visit: Yes (2) Stage 3 chronic kidney disease Status: Chronic Current Visit: Yes (3) Morbid obesity Status: Chronic Current Visit: Yes (4) Bradycardia Status: Acute Current Visit: Yes (5) Type 2 diabetes mellitus Status: Chronic Current Visit: No (6) Ulcer of right lower extremity Status: Chronic Current Visit: No (7) Chronic diastolic (congestive) heart failure Status: Chronic Current Visit: No (8) Essential (primary) hypertension Status: Chronic Current Visit: No (9) Stage 2 moderate COPD by GOLD classification Status: Chronic Current Visit: No - Allergies/Procedures Done in Hospital Allergies/Adverse Reactions: Allergies lisinopril Allergy (Severe, Verified 10/08/18 14:06) Angioedema latanoprost [From Xalatan] Adverse Reaction (Unknown, Verified 11/08/18 20:25) Other precipitation in eyes Sulfa (Sulfonamide Antibiotics) Adverse Reaction (Verified 10/08/18 14:06) Other chapstick Allergy (Uncoded 11/08/18 20:25) swelling Procedures: 2-D Echocardiogram - Type of Care/Length of Stay Estimated LOS: Convalescent Care Less Than 30 days Type of Care Needed: Skilled Rehab Potential: Good Prognosis: Good - Additional Orders/Day of Discharge Additional Orders: See Dr. Daugherty 2 weeks after TCU discharge. See Dr. Riley 2- 3 weeks after discharge from TCU H&P will serve as current which was dated: 11/08/18 Day of Discharge: 11/15/18 - Follow Up Care Primary Care Physician: Alex Pedersen MD [Primary Care Provider] -
--- NOTE | 2018-11-15 18:12 | NURSING ---
Report called to Gerhard CARRINGTON on PCU
--- NOTE | 2018-11-15 18:37 | NURSING ---
Reviewed and agreed on charting with Uma Tan RN
--- NOTE | 2018-11-16 09:31 | DS.PCM_ITS ---
Discharge Date and Diagnosis Date of Admission: 11/08/18 Date of Discharge: 11/15/18 - Primary Discharge Diagnosis #1 acute combined respiratory failure on a backdrop of chronic combined respiratory failure #2 acute on chronic diastolic congestive heart failure #3 chronic stasis wound to right lower extremity-not felt to be infected #4 chronic obstructive pulmonary disease-noncompliant with oxygen usage #5 obstructive sleep apnea #6 type 2 diabetes #7 bradycardia-etiology not completely clear #8 Paroxysmal SVT #9 hyperlipidemia #10 osteoarthritis #11 stage III chronic kidney disease secondary to type 2 diabetes #12 iron deficiency anemia - Secondary Discharge Diagnosis Chronic Problems (Last Reviewed 10/08/18 @ 14:06 by Laine Jeronimo) Stage 3 chronic kidney disease (Chronic) Morbid obesity (Chronic) Renal insufficiency (Chronic) Hypertension (Chronic) Pulmonary hypertension (Chronic) COPD (chronic obstructive pulmonary disease) (Chronic) Chronic kidney disease (Chronic) Glaucoma (Chronic) GERD (gastroesophageal reflux disease) (Chronic) BPH (benign prostatic hyperplasia) (Chronic) Chronic respiratory failure with hypoxia and hypercapnia (Chronic) Lower extremity weakness (Chronic) Type 2 diabetes mellitus (Chronic) Osteoarthritis (Chronic) Ulcer of right lower extremity (Chronic) Chronic diastolic (congestive) heart failure (Chronic) Hyperlipidemia (Chronic) Essential (primary) hypertension (Chronic) Secondary pulmonary arterial hypertension (Chronic) Stage 2 moderate COPD by GOLD classification (Chronic) Shortness of breath (Chronic) ADELAIDE (obstructive sleep apnea) (Chronic) Hospital Course and Treatment Consultations 11/09/18 00:06 Consult: Onc/Wound/retirement sales consultant Routine Comment: Operations: None Procedures: 2-D Echocardiogram Summary of Care Provided: The patient is a 63 year old M who was seen in the emergency room at [facility] chief complaint of shortness of breath. Patient had been noncompliant at home with home oxygen usage. Work-up in the emergency room revealed the patient have acute combined respiratory failure, BiPAP was ordered, patient was admitted to ICU and he was seen in consultation by critical care and cardiology. Cardiology felt the patient had a component of diastolic congestive heart failure and IV Lasix was given, patient had episodes of bradycardia and his Trandate had to be stopped for a time during his hospitalization. Patient was able to come off BiPAP and able be transferred from ICU to PCU. PT OT saw the patient but the patient was weak and needed short-term placement in [facility] facility. Cardiology noted that the patient had episodes of SVT during his hospitalization, medications were adjusted, patient was finally placed back on Trandate. Patient was given a course of IV antibiotics but there is no evidence of pneumonia and this examiner did not feel that the patient had an infected stasis ulcer on his right leg. On 11/15/2018, patient was seen and examined:General: Alert, Oriented x3, Cooperative, No apparent distress HEENT: Atraumatic, PERRLA, EOMI, Normocephalic Oral: Moist Mucosa Neck: Supple, Trachea Midline, Thyroid Normal Size and Texture Lungs: Clear to auscultation, No rhonchi, No wheeze, No rales, Diminished Cardiovascular: Regular rate, Regular Rhythm, Normal S1, Normal S2, No murmurs Abdomen: Bowel Sounds Present, Soft, Non Tender, Non-Distended Extremities: No clubbing, No cyanosis, Capillary Refill Less than 3 Seconds Skin: No rashes, Ulcer/ Wound - Stasis ulceration is noted to the patient's right lower extremity as described previously Musculoskeletal: No Tenderness to Palpation of Joints or Extremities Neurological: Cranial nerves II-XII grossly intact, Neuro grossly intact, Sensory exam intact to light touch and pain, Coordination normal Psych/Mental Status: Normal Affect, Appropriate, Alert and oriented to time, place, person, mood and affect On 11/15/2018, patient was seen and examined felt to be in stable condition for discharge to [facility] facility for inpatient rehab services. - Physical Exam Vital Signs Temp Pulse Resp BP Pulse Ox 98.3 F 76 18 138/71 H 92 11/15/18 17:25 11/15/18 17:25 11/15/18 17:25 11/15/18 17:25 11/15/18 17:25 Oxygen Flow Rate (L/min) 3 Oxygen Delivery Method Nasal Cannula Weight: 135.8 kg Body Mass Index (BMI) 44.8 Intake and Output for Last 24 Hours 11/14/18 11/15/18 11/16/18 23:59 23:59 23:59 Intake Total 1899.17 / 1899.17 1400 / 1400 Output Total 1650 / 1650 600 / 600 Balance 249.17 / 249.17 800 / 800 Microbiology Past 72 Hours 11/11/18 23:00 Urine Culture - Final Urine Catheter - Prieto Culture exhibits no growth. POC Glucose 11/15/18 11/15/18 16:38 11:22 POC Glucose 154 H 190 H Home Medications: Medications to take at Discharge tramadol 50 mg tablet 50 mg PO TID PRN tab 10/24/17 brimonidine 0.2 % eye drops 1 drp OPHTHALMIC BID ml 05/04/18 dorzolamide 2 %-timolol 0.5 % (PF) eye drops 1 drp OPHTHALMIC BID 05/04/18 losartan 100 mg tablet 100 mg PO DAILY 05/04/18 omeprazole 20 mg capsule,delayed release 20 mg PO DAILY 05/04/18 tamsulosin 0.4 mg capsule 0.4 mg PO DAILY 05/30/18 latanoprost 0.005 % eye drops 1 drp OPHTHALMIC QPM 09/06/18 Acetaminophen [Tylenol Tablet] 650 mg PO Q6H PRN PRN tab 11/15/18 Albuterol Aerosols [Ventolin Aerosols] 2.5 mg INHALATION Q2H PRN PRN vial.neb. 11/15/18 Aspirin [Aspirin, Baby] 81 mg PO DAILY@0800 11/15/18 Cholecalciferol (VIT D3) [Vitamin D3] 1,000 unit PO DAILY 11/15/18 Enoxaparin [Lovenox] 40 mg SUBCUT DAILY@1000 11/15/18 Fluticasone 0.05% [Flonase Nasal [place]] 2 spray NASAL BID PRN nasal.sry 11/15/18 Fluticasone/Umeclidin/Vilanter [Trelegy Ellipta 100-62.5-25] 1 inh INHALATION DAILY 11/15/18 Furosemide 40 mg PO BID 11/15/18 Guaifenesin [Robitussin] 10 ml PO Q4H PRN PRN udc 11/15/18 Ipratropium/Albuterol Sulfate [Duoneb] 3 ml INHALATION Q6HWA.RT 11/15/18 Isosorbide Mononitrate [Imdur] 30 mg PO DAILY 11/15/18 Labetalol [Trandate (Beta Maribel)] 200 mg PO BID 11/15/18 Linagliptin [Tradjenta] 5 mg PO DAILY 11/15/18 Mag Hydrox/Al Hydrox/Simeth [Mylanta II] 15 - 30 ml PO Q4H PRN PRN udc 11/15/18 Menthol/Lanolin/Calamine/Znox [Calmoseptine Ointment] 1 applic TOPICAL BID 11/15/18 hydrALAZINE [Apresoline] 50 mg PO TID 11/15/18 Primary Care Physician: Alex Pedersen MD [Primary Care Provider] - Disposition: [facility] facility Minutes spent on discharge:: 35 Patient Condition:: Stable Medical Necessity - Tobacco Use Smoking Status: Former smoker Tobacco Use: Cigarettes Meaningful Use Info Meaningful Use Diagnoses (Choose all that apply): CHF - CHF MIS/ARB ordered at discharge?: Yes Documented LVEF (%): 65 Code Visit Inpatient E&M: 44163 Disch Hosp
== END 2018-11-15 18:29 | disposition skilled nursing facility (03) | DRG 189 ==
LOC: ED 22:43 → ICU 23:27 → PCU 11-14 08:12
PROVIDERS: Hospitalist; Internal Medicine; Internal Medicine Critical Care Medicine; Admitting Provider Family Medicine; Emergency Provider Emergency Medicine; Family Provider Internal Medicine; PCP Internal Medicine; Visit Provider Internal Medicine
DX: J96.21 Acute and chronic respiratory failure with hypoxia (principal); I50.33 Acute on chronic diastolic (congestive) heart failure; I71.01 Dissection of thoracic aorta; I13.0 Hypertensive heart and chronic kidney disease with heart failure and stage 1 through stage 4 chronic kidney disease, or unspecified chronic kidney disease; Z68.41 Body mass index [BMI] 40.0-44.9, adult; L97.919 Non-pressure chronic ulcer of unspecified part of right lower leg with unspecified severity; I47.1 Supraventricular tachycardia; J96.22 Acute and chronic respiratory failure with hypercapnia; E66.01 Morbid (severe) obesity due to excess calories; N18.3 Chronic kidney disease, stage 3 (moderate); G47.33 Obstructive sleep apnea (adult) (pediatric); I87.2 Venous insufficiency (chronic) (peripheral); J44.9 Chronic obstructive pulmonary disease, unspecified; E55.9 Vitamin D deficiency, unspecified; E11.22 Type 2 diabetes mellitus with diabetic chronic kidney disease; R00.1 Bradycardia, unspecified; Z91.19 Patient's noncompliance with other medical treatment and regimen; E29.1 Testicular hypofunction; M19.90 Unspecified osteoarthritis, unspecified site; D50.9 Iron deficiency anemia, unspecified; R31.0 Gross hematuria; N40.1 Benign prostatic hyperplasia with lower urinary tract symptoms; R33.8 Other retention of urine; R19.5 Other fecal abnormalities; E78.5 Hyperlipidemia, unspecified; H40.9 Unspecified glaucoma; I27.21 Secondary pulmonary arterial hypertension; Z87.891 Personal history of nicotine dependence; K21.9 Gastro-esophageal reflux disease without esophagitis; Z79.84 Long term (current) use of oral hypoglycemic drugs
CPT/HCPCS: 36415; 36600; 71045; 71275; 80048; 80053; 80202; 81001; 82274; 82728; 82803; 82962; 83540; 83550; 83735; 83880; 84100; 84439; 84484; 85025; 85027; 85045; 87070; 87077; 87086; 87184; 87186; 87205; 87449; 87633; 87640; 87641; 93005; 93306; 94002; 94003; 94640; 94667; 94668; 97110; 97163; 97166; 97530; 97535; 97802; 99284; J1756; J7030; J7040; Q9957; Q9967; A4216; C8929; J0153; J1940

== ENCOUNTER 2018-11-15 18:49 | Inpatient (IN) | payer OTHER, SELFPAY ==
[2018-11-09 00:08] VITALS: BMI 44.8
[2018-11-15 19:39] VITALS: BP 124/72; PULSE 84; RESP 18; TEMP 36.8; O2SAT 92; BMI 44.3
--- NOTE | 2018-11-15 21:05 | HP.PCM_ITS ---
Problem List (1) Debility Status: Acute (2) Acute respiratory failure Status: Acute (3) Community acquired pneumonia Status: Acute (4) Hematuria Status: Acute (5) Urinary retention Status: Acute (6) Hypertension Status: Chronic (7) Pulmonary hypertension Status: Chronic (8) Acute on chronic diastolic heart failure Status: Acute (9) COPD (chronic obstructive pulmonary disease) Status: Chronic (10) Chronic kidney disease Status: Chronic (11) Glaucoma Status: Chronic (12) GERD (gastroesophageal reflux disease) Status: Chronic (13) BPH (benign prostatic hyperplasia) Status: Chronic (14) Type 2 diabetes mellitus Status: Chronic Qualifiers: (15) Osteoarthritis Status: Chronic (16) ADELAIDE (obstructive sleep apnea) Status: Chronic History of Present Illness Date of Admission: 11/15/18 Chief Complaint: Here for rehabilitation, strengthening, prior to discharge home with spouse. The patient is a 63 year old Male with below past medical history presented to [facility] Emergency Department 11/08/2018 with shortness of breath, dyspnea on exertion, hypotension. 11/08/2018 CTA chest negative pulmonary embolism, stable descending thoracic aortic aneurysm/dissection, bilateral upper lobe pneumonia versus congestive heart failure. Sudden onset, low blood pressure, hypoxic. CTA chest showed pneumonia versus congestive heart failure. BiPAP ordered. 11/08/2018 Admit to Hospital. Pancultured. Zosyn, Vancomycin IV for community acquired pneumonia. Right lower extremity wound concerning for infection. 11/09/2018 Echo EF 65% RVSP 31mm HG. Diastolic function indeterminate. 11/09/2018 Dr. Ruth recommended continuing IV antibiotics. Patient not compliant with home oxygen use. Wean PAP, wean oxygen as tolerated. 11/10/2018 Dr. Kendrick recommended monitoring bradycardia. Diuretic therapy for diastolic heart failure. 11/12/2018 Dr. Garcia consulted for hematuria, urinary retention. Bladder irrigated, lots of clots, irrigated until clear. Respiratory failure stable. Oral Lasix for acute on chronic diastolic heart failure. Flomax/voiding trial for urinary retention. BiPAP for obstructive sleep apnea. 11/15/2018 Admit to TCU with debility, here for rehabilitation, strengthening, prior to discharge home with spouse. Past Medical History Past Medical History (Chronic Problems): Chronic Problems (Last Reviewed 10/08/18 @ 14:06 by Laine Jeronimo) Stage 3 chronic kidney disease (Chronic) Morbid obesity (Chronic) Renal insufficiency (Chronic) Hypertension (Chronic) Pulmonary hypertension (Chronic) COPD (chronic obstructive pulmonary disease) (Chronic) Chronic kidney disease (Chronic) Glaucoma (Chronic) GERD (gastroesophageal reflux disease) (Chronic) BPH (benign prostatic hyperplasia) (Chronic) Chronic respiratory failure with hypoxia and hypercapnia (Chronic) Lower extremity weakness (Chronic) Type 2 diabetes mellitus (Chronic) Osteoarthritis (Chronic) Ulcer of right lower extremity (Chronic) Chronic diastolic (congestive) heart failure (Chronic) Hyperlipidemia (Chronic) Essential (primary) hypertension (Chronic) Secondary pulmonary arterial hypertension (Chronic) Stage 2 moderate COPD by GOLD classification (Chronic) Shortness of breath (Chronic) ADELAIDE (obstructive sleep apnea) (Chronic) Medical History: Medical History (Last Reviewed 10/08/18 @ 14:06 by Laine Jeronimo) Ulcer of right lower extremity (Chronic) L97.919 Chronic diastolic (congestive) heart failure (Chronic) I50.32 Hyperlipidemia (Chronic) E78.5 Essential (primary) hypertension (Chronic) I10 Secondary pulmonary arterial hypertension (Chronic) I27.21 Stage 2 moderate COPD by GOLD classification (Chronic) J44.9 Shortness of breath (Chronic) R06.02 ADELAIDE (obstructive sleep apnea) (Chronic) G47.33 Chronic kidney disease, stage 3 N18.3 Chronic venous insufficiency I87.2 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 Normocytic anemia D64.9 Obesity E66.9 Type 2 diabetes mellitus E11.9 Chronic cutaneous venous stasis ulcer (Resolved) I83.009 RLE Extremity Tobacco use Z72.0 Chronic venous stasis dermatitis (Inactive) I83.10 Allergies lisinopril Allergy (Severe, Verified 10/08/18 14:06) Angioedema latanoprost [From Xalatan] Adverse Reaction (Unknown, Verified 11/08/18 20:25) Other precipitation in eyes Sulfa (Sulfonamide Antibiotics) Adverse Reaction (Verified 10/08/18 14:06) Other chapstick Allergy (Uncoded 11/08/18 20:25) swelling Home Medications: Ambulatory Orders Medication Instructions Recorded tramadol 50 mg tablet 50 mg PO TID PRN tab 10/24/17 brimonidine 0.2 % eye drops 1 drp OPHTHALMIC BID ml 05/04/18 dorzolamide 2 %-timolol 0.5 % (PF) 1 drp OPHTHALMIC BID 05/04/18 eye drops losartan 100 mg tablet 100 mg PO DAILY 05/04/18 omeprazole 20 mg capsule,delayed 20 mg PO DAILY 05/04/18 release tamsulosin 0.4 mg capsule 0.4 mg PO DAILY 05/30/18 latanoprost 0.005 % eye drops 1 drp OPHTHALMIC QPM 09/06/18 Acetaminophen [Tylenol Tablet] 650 mg PO Q6H PRN PRN tab 11/15/18 Albuterol Aerosols [Ventolin 2.5 mg INHALATION Q2H PRN PRN 11/15/18 Aerosols] vial.neb. Aspirin [Aspirin, Baby] 81 mg PO DAILY@0800 11/15/18 Cholecalciferol (VIT D3) [Vitamin 1,000 unit PO DAILY 11/15/18 D3] Enoxaparin [Lovenox] 40 mg SUBCUT DAILY@1000 11/15/18 Fluticasone 0.05% [Flonase Nasal 2 spray NASAL BID PRN nasal.sry 11/15/18 Mcin[place]re] Fluticasone/Umeclidin/Vilanter 1 inh INHALATION DAILY 11/15/18 [Trelegy Ellipta 100-62.5-25] Furosemide 40 mg PO BID 11/15/18 Guaifenesin [Robitussin] 10 ml PO Q4H PRN PRN udc 11/15/18 Ipratropium/Albuterol Sulfate 3 ml INHALATION Q6HWA.RT 11/15/18 [Duoneb] Isosorbide Mononitrate [Imdur] 30 mg PO DAILY 11/15/18 Labetalol [Trandate (Beta Maribel)] 200 mg PO BID 11/15/18 Linagliptin [Tradjenta] 5 mg PO DAILY 11/15/18 Mag Hydrox/Al Hydrox/Simeth 15 - 30 ml PO Q4H PRN PRN udc 11/15/18 [Mylanta II] Menthol/Lanolin/Calamine/Znox 1 applic TOPICAL BID 11/15/18 [Calmoseptine Ointment] hydrALAZINE [Apresoline] 50 mg PO TID 11/15/18 Surgical History: no surgical history Psychiatric History: No pertinent psych hx Lives: Spouse/ Significant Other Smoking Status: Former smoker Tobacco Use: Non-smoker Alcohol: None Drugs: None - *Family History Maternal Family History: Family History (Last Reviewed 10/08/18 @ 14:06 by Laine Jeronimo) Father Cancer Mother Asthma History Items: Asthma Paternal Family History: Family History (Last Reviewed 10/08/18 @ 14:06 by Laine Jeronimo) Father Cancer Mother Asthma History Items: Cancer VTE Information - Inpt Only VTE Present on Admission: No VTE Mechan Device Prophylaxis: Knee High ANDRA Hose VTE Pharm Prophylaxis ordered?: Yes - Physical Exam Body Mass Index (BMI) 44.8 Assessment/Plan All Active Problems (Last Reviewed 10/08/18 @ 14:06 by Laine Jeronimo) Acute respiratory failure with hypoxia and hypercapnia (Acute) Bilateral pulmonary infiltrates on CXR (Acute) Bradycardia (Acute) CHF (congestive heart failure) (Acute) Thoracic aortic aneurysm, ruptured (Acute) Debility (Acute) Acute respiratory failure (Acute) Community acquired pneumonia (Acute) Hematuria (Acute) Urinary retention (Acute) Acute on chronic diastolic heart failure (Acute) Gross hematuria (Acute) Chronic cutaneous venous stasis ulcer (Resolved) 63 year old male with below past medical history hospitalized for acute respiratory failure secondary to acute on chronic diastolic heart failure, complicated by hematuria, urinary retention, admitted to TCU with debility, here for rehabilitation, strengthening, prior to discharge home with spouse. * Debility - PT/OT. * Pain - Tylenol 1000MG Q6H PRN mild pain, Tramadol 50MG TID PRN moderate pain. * Bowel - Miralax 17GM daily, Senna/colace 2 tablets BID, Dulcolax 10MG daily PRN. * Pneumonia vaccination - Administer Prevnar 13 and/or Pneumovax 23 as necessary. * DVT prophylaxis - Lovenox 40MG SC daily. * COPD - Trelegy 1 puff daily, Duoneb 3ML Q6H, Albuterol 2.5MG nebulized Q2H PRN. * Coronary Artery Disease - Labetalol 200MG BID, Losartan 100MG daily, Imdur 30MG daily, Aspirin 81MG daily. * Glaucoma - Brimonidine 0.2% 1GTT OU BID, Cosopt 1GTT OU BID, Xalatan 0.005% 1GTT OU QPM. * Vitamin D deficiency - D3 1000IU daily. * Allergic Rhinitis - Flonase 2 sprays BID PRN. * Acute on chronic diastolic heart failure - Labetalol 200M BID, Losartan 100MG daily, Imdur 30MG daily, Hydralazine 50MG TID, Lasix 40MG BID. * Cough - Robitussin 10ML Q4H PRN. * Diabetes Mellitus II - Tradjenta 5MG daily. * GERD - Pantoprazole 20MG daily, Mylanta II 30ML Q4H PRN. * Skin irritation - Calmoseptine BID. * BPH - Tamsulosin 0.4MG daily, Dr. Garcia. * Sleep apnea - BiPAP at night. * Resident left without being seen.
[2018-11-15 22:34] VITALS: PULSE 86; RESP 12; RESP 21; O2SAT 91
[2018-11-15 22:59] VITALS: BP 124/72; PULSE 86
[2018-11-15] MEDS: hydrALAZINE 50 MG Tablet PO (22:59)
--- NOTE | 2018-11-15 23:15 | NURSING ---
In to assess patient at this time. Patient noted to have gross hematuria. Patient noticeably having bladder spasms. Patient recently had sanchez taken out. Patient was getting bladder irrigation on PCU. Patient's Sanchez removed this am. Dr. Turcios notified of this orders given to d/c lovenox and aspirin and orders given to call Dr. Garcia to see what he wants to do with patient.
[2018-11-15] MEDS: Latanoprost 0.005% 1 Bottle 1 DRP OPHTHALMIC (23:20)
--- NOTE | 2018-11-15 23:40 | NURSING ---
Dr. Garcia notified of patient's bladder spasms and that patient is having gross hematuria with good sized blood clots. Orders given to send patient to ER to have Prieto placed back in. Dr. Turcios notified of this. Ok to send patient down to ER.
--- NOTE | 2018-11-15 23:45 | NURSING ---
Report called down to CHARISSA Squires down in ER.
--- NOTE | 2018-11-15 23:55 | NURSING ---
Addendum entered by Gita King 11/16/18 04:54: Notified by ER Nurse that patient is going to be transferred out to another facility. aware of this. Original Note: Patient taken down to ER via bed with the assist of 2. Report given to CHARISSA Squires.
--- NOTE | 2018-11-16 08:11 | DCINST_ITS ---
You will use the following diet at home:: No restrictions, Regular Your food should be the consistency of: Regular Your liquids should be the consistency of: Regular/Thin Discharge Activity: Use Walker Weight Bearing Status: Weight bearing as tolerated Call your doctor if you observe: Fever of 101 or Higher, Inability to urinate, Inability to have a bowel movement, Shortness of breath, Chest pain, Uncontrolled pain Allergies/Adverse Reactions: Allergies lisinopril Allergy (Severe, Verified 11/16/18 00:14) Angioedema latanoprost [From Xalatan] Adverse Reaction (Unknown, Verified 11/16/18 00:14) Other precipitation in eyes Sulfa (Sulfonamide Antibiotics) Adverse Reaction (Verified 11/16/18 00:14) Other chapstick Allergy (Uncoded 11/16/18 00:14) swelling Medications to take at Discharge tramadol 50 mg tablet 50 mg PO TID PRN tab 10/24/17 brimonidine 0.2 % eye drops 1 drp OPHTHALMIC BID ml 05/04/18 dorzolamide 2 %-timolol 0.5 % (PF) eye drops 1 drp OPHTHALMIC BID 05/04/18 losartan 100 mg tablet 100 mg PO DAILY 05/04/18 omeprazole 20 mg capsule,delayed release 20 mg PO DAILY 05/04/18 tamsulosin 0.4 mg capsule 0.4 mg PO DAILY 05/30/18 latanoprost 0.005 % eye drops 1 drp OPHTHALMIC QPM 09/06/18 Isosorbide Mononitrate [Imdur] 30 mg PO DAILY 11/15/18 RX: Acetaminophen [Tylenol Tablet] 650 mg PO Q6H PRN PRN tab 11/15/18 RX: Albuterol Aerosols [Ventolin Aerosols] 2.5 mg INHALATION Q2H PRN PRN vial.neb. 11/15/18 RX: Aspirin [Aspirin, Baby] 81 mg PO DAILY@0800 11/15/18 RX: Cholecalciferol (VIT D3) [Vitamin D3] 1,000 unit PO DAILY 11/15/18 RX: Enoxaparin [Lovenox] 40 mg SUBCUT DAILY@1000 11/15/18 RX: Fluticasone 0.05% [Flonase Nasal [place]] 2 spray NASAL BID PRN nasal.sry 11/15/18 RX: Fluticasone/Umeclidin/Vilanter [Trelegy Ellipta 100-62.5-25] 1 inh INHALATION DAILY 11/15/18 RX: Furosemide 40 mg PO BID 11/15/18 RX: Guaifenesin [Robitussin] 10 ml PO Q4H PRN PRN udc 11/15/18 RX: Ipratropium/Albuterol Sulfate [Duoneb] 3 ml INHALATION Q6HWA.RT 11/15/18 RX: Labetalol [Trandate (Beta Maribel)] 200 mg PO BID 11/15/18 RX: Linagliptin [Tradjenta] 5 mg PO DAILY 11/15/18 RX: Mag Hydrox/Al Hydrox/Simeth [Mylanta II] 15 - 30 ml PO Q4H PRN PRN udc 11/15/18 RX: Menthol/Lanolin/Calamine/Znox [Calmoseptine Ointment] 1 applic TOPICAL BID 11/15/18 RX: hydrALAZINE [Apresoline] 50 mg PO TID 11/15/18 Primary Care Physician: Alex Pedersen MD [Primary Care Provider] - Please follow up with your Primary Care Physician in: 1 week. Test Results: Test results from this visit will be discussed in further detail at your follow- up appointment, if applicable. Proposed Discharge Date: 11/15/18
--- NOTE | 2018-11-16 08:13 | PCM.DC.SUM ---
Discharge Date and Diagnosis Date of Admission: 11/15/18 Date of Discharge: 11/15/18 - Secondary Discharge Diagnosis Chronic Problems (Last Reviewed 10/08/18 @ 14:06 by Laine Jeronimo) Stage 3 chronic kidney disease (Chronic) Morbid obesity (Chronic) Renal insufficiency (Chronic) Hypertension (Chronic) Pulmonary hypertension (Chronic) COPD (chronic obstructive pulmonary disease) (Chronic) Chronic kidney disease (Chronic) Glaucoma (Chronic) GERD (gastroesophageal reflux disease) (Chronic) BPH (benign prostatic hyperplasia) (Chronic) Chronic respiratory failure with hypoxia and hypercapnia (Chronic) Lower extremity weakness (Chronic) Type 2 diabetes mellitus (Chronic) Osteoarthritis (Chronic) Ulcer of right lower extremity (Chronic) Chronic diastolic (congestive) heart failure (Chronic) Hyperlipidemia (Chronic) Essential (primary) hypertension (Chronic) Secondary pulmonary arterial hypertension (Chronic) Stage 2 moderate COPD by GOLD classification (Chronic) Shortness of breath (Chronic) ADELAIDE (obstructive sleep apnea) (Chronic) Hospital Course and Treatment Consultations 11/16/18 01:56 Consult: Onc/Wound/plaster patternmaker Routine Comment: Reason for Consult:: wounds to bilateral legs Operations: None Procedures: None Summary of Care Provided: The patient is a 63 year old Male with below past medical history hospitalized for acute respiratory failure secondary to acute on chronic diastolic heart failure, complicated by hematuria, urinary retention, admitted to TCU with debility, here for rehabilitation, strengthening, prior to discharge home with spouse. Discharge to [facility] Emergency Department for gross hematuria, due to no Urology coverage, resident transferred to [facility]. - Physical Exam Vital Signs Temp Pulse Resp BP Pulse Ox 98.3 F 86 21 H 124/72 H 91 11/15/18 19:39 11/15/18 22:59 11/15/18 22:34 11/15/18 22:59 11/15/18 22:34 Oxygen Flow Rate (L/min) 3 Oxygen Delivery Method Nasal Cannula Weight: 135.806 kg Body Mass Index (BMI) 44.3 Discharge Diet: No Restrictions Discharge Activity: Return to Normal Activity, Use Walker Weight Bearing Status: Weight bearing as tolerated Call your doctor if you observe: Fever of 101 or Higher, Inability to urinate, Inability to have a bowel movement, Shortness of breath, Chest pain, Uncontrolled pain Home Medications: Medications to take at Discharge tramadol 50 mg tablet 50 mg PO TID PRN tab 10/24/17 brimonidine 0.2 % eye drops 1 drp OPHTHALMIC BID ml 05/04/18 dorzolamide 2 %-timolol 0.5 % (PF) eye drops 1 drp OPHTHALMIC BID 05/04/18 losartan 100 mg tablet 100 mg PO DAILY 05/04/18 omeprazole 20 mg capsule,delayed release 20 mg PO DAILY 05/04/18 tamsulosin 0.4 mg capsule 0.4 mg PO DAILY 05/30/18 latanoprost 0.005 % eye drops 1 drp OPHTHALMIC QPM 09/06/18 Acetaminophen [Tylenol Tablet] 650 mg PO Q6H PRN PRN tab 11/15/18 Albuterol Aerosols [Ventolin Aerosols] 2.5 mg INHALATION Q2H PRN PRN vial.neb. 11/15/18 Aspirin [Aspirin, Baby] 81 mg PO DAILY@0800 11/15/18 Cholecalciferol (VIT D3) [Vitamin D3] 1,000 unit PO DAILY 11/15/18 Enoxaparin [Lovenox] 40 mg SUBCUT DAILY@1000 11/15/18 Fluticasone 0.05% [Flonase Nasal [place]] 2 spray NASAL BID PRN nasal.sry 11/15/18 Fluticasone/Umeclidin/Vilanter [Trelegy Ellipta 100-62.5-25] 1 inh INHALATION DAILY 11/15/18 Furosemide 40 mg PO BID 11/15/18 Guaifenesin [Robitussin] 10 ml PO Q4H PRN PRN udc 11/15/18 Ipratropium/Albuterol Sulfate [Duoneb] 3 ml INHALATION Q6HWA.RT 11/15/18 Isosorbide Mononitrate [Imdur] 30 mg PO DAILY 11/15/18 Labetalol [Trandate (Beta Maribel)] 200 mg PO BID 11/15/18 Linagliptin [Tradjenta] 5 mg PO DAILY 11/15/18 Mag Hydrox/Al Hydrox/Simeth [Mylanta II] 15 - 30 ml PO Q4H PRN PRN udc 11/15/18 Menthol/Lanolin/Calamine/Znox [Calmoseptine Ointment] 1 applic TOPICAL BID 11/15/18 hydrALAZINE [Apresoline] 50 mg PO TID 11/15/18 Primary Care Physician: Alex Pedersen MD [Primary Care Provider] - Please follow up with your Primary Care Physician in: 1 week. Disposition: Acute care Hospital Minutes spent on discharge:: 30 Patient Condition:: Guarded Medical Necessity - Tobacco Use Smoking Status: Former smoker Tobacco Use: Non-smoker Meaningful Use Info Meaningful Use Diagnoses (Choose all that apply): None applicable
--- NOTE | 2018-11-23 09:21 | MDS.RN ---
Information for the mds was obtained from review of the medical record, interview of staff.
== END 2018-11-16 06:13 | disposition short-term general hospital (02) | DRG 948 ==
PROVIDERS: Admitting Provider Family Medicine Geriatric Medicine; Family Provider Internal Medicine; PCP Internal Medicine; Visit Provider Family Medicine Geriatric Medicine
DX: R53.81 Other malaise (principal); I50.32 Chronic diastolic (congestive) heart failure; I13.0 Hypertensive heart and chronic kidney disease with heart failure and stage 1 through stage 4 chronic kidney disease, or unspecified chronic kidney disease; Z68.41 Body mass index [BMI] 40.0-44.9, adult; J96.12 Chronic respiratory failure with hypercapnia; J96.11 Chronic respiratory failure with hypoxia; J44.9 Chronic obstructive pulmonary disease, unspecified; I25.10 Atherosclerotic heart disease of native coronary artery without angina pectoris; G47.33 Obstructive sleep apnea (adult) (pediatric); N40.0 Benign prostatic hyperplasia without lower urinary tract symptoms; K21.9 Gastro-esophageal reflux disease without esophagitis; H40.9 Unspecified glaucoma; I27.21 Secondary pulmonary arterial hypertension; N18.3 Chronic kidney disease, stage 3 (moderate); E11.22 Type 2 diabetes mellitus with diabetic chronic kidney disease; Z87.891 Personal history of nicotine dependence; E66.01 Morbid (severe) obesity due to excess calories; M19.90 Unspecified osteoarthritis, unspecified site; R31.0 Gross hematuria
CPT/HCPCS: 94003

== ENCOUNTER 2018-11-16 00:13 | Emergency (ER) | payer OTHER, SELFPAY ==
[2018-11-09 00:08] VITALS: BMI 44.8
[2018-11-16 00:15] VITALS: BP 164/90; PULSE 102; RESP 20; TEMP 36.9; O2SAT 92; BMI 42.8
[2018-11-16 00:42] LABS: Absolute Lymphocyte Count 1.25 X10^3/uL (0.83-4.51); Absolute Neutrophil Count 6.7 X10^3/uL (2.0-7.7); Basophil# 0.03 X10^3/uL; Basophil% 0.3 % (0-1); Eosinophil# 0.61 X10^3/uL; Eosinophils% 6.4 % (0-5); Hematocrit 33.2 % (40-54); Hemoglobin 9.9 g/dL (13.0-16.5); Lymphocyte # 1.25 X10^3/ul (4.0); Lymphocyte % 13.2 % (19-41); Mean Corp Hgb Conc 29.8 g/dL (32-36); Mean Corpuscular Volume 94.1 fL (80-94); Mean Platelet Vol. 9.4 fl (6.2-12.0); Monocyte# 0.84 X10^3/uL; Monocyte% 8.9 % (0-10); NRBC Flagged by Analyzer 0 % (0-5); Neutrophil % 70.6 % (47-70); Platelet Count 307 K/mm3 (150-450); RBC Distribution Width SD 51.8 fl (35.1-43.9); Red Blood Count 3.53 M/mm3 (4.6-6.2); White Blood Count 9.5 K/mm3 (4.4-11.0)
[2018-11-16 01:01] LABS: Anion Gap 2 (5-15); BUN 23 mg/dL (7-18); BUN/Creat Ratio 18.1 RATIO (10-20); Calcium,Total 8.9 mg/dL (8.5-10.1); Chloride 93 mmol/L (98-107); Creatinine, Serum 1.27 mg/dL (0.70-1.30); EST Glomerular Filtration Rate 61 mL/min (>60); Est Glom Filt Rate - Afr Amer 73 mL/min (>60); Estimated Creatinine Clearance 58.76 ml/min; Glucose 148 mg/dL (74-106); Sodium Level 136 mmol/L (136-145)
--- NOTE | 2018-11-16 01:05 | ED.RN ---
PT REQUESTING MEDICATION FOR PAIN, DR. OCHOA INFORMED AWAITING FURTHER ORDERS.
[2018-11-16] MEDS: Ondansetron 4 MG/2 ML Vial IV (01:26)
[2018-11-16] MEDS: morphine 8 MG/ML Syringe IV (01:26)
--- NOTE | 2018-11-16 01:39 | ED.DCSUM_ITS ---
History of Present Illness Chief Complaint: Complaint Informant: Patient, - - TCU nurse Onset: Days Context: Sudden Onset Timing: Continuous Quality: Gross hematuria with clots Location: Current Severity: Severe Maximum Severity: Severe Worsened by: Lovenox Relieved by: Nothing Associated Symptoms: Suprapubic pressure Narrative: Patient is a 63-year-old male with multiple medical problems who was recently admitted to the hospital. He states Prieto was removed yesterday. He has had gross hematuria secondary to Prieto and Lovenox. He denies fever, chills or night sweats. Does have history of enlarged prostate. He has no other comp laints. Prior similar symptoms: Yes Recent Illness/Hospitalization: Yes - Past Medical History (1) Acute on chronic diastolic heart failure Status: Acute (2) Debility Status: Acute (3) Hematuria Status: Acute (4) Urinary retention Status: Acute (5) BPH (benign prostatic hyperplasia) Status: Chronic (6) COPD (chronic obstructive pulmonary disease) Status: Chronic (7) Chronic kidney disease Status: Chronic (8) GERD (gastroesophageal reflux disease) Status: Chronic (9) Glaucoma Status: Chronic (10) Hypertension Status: Chronic (11) Pulmonary hypertension Status: Chronic (12) Bradycardia Status: Acute (13) Hyperlipidemia Status: Chronic (14) Morbid obesity Status: Chronic (15) Osteoarthritis Status: Chronic (16) Type 2 diabetes mellitus Status: Chronic (17) Ulcer of right lower extremity Status: Chronic Past Medical History - Allergies and Home Meds Allergies/Adverse Reactions: Allergies lisinopril Allergy (Severe, Verified 11/16/18 00:14) Angioedema latanoprost [From Xalatan] Adverse Reaction (Unknown, Verified 11/16/18 00:14) Other precipitation in eyes Sulfa (Sulfonamide Antibiotics) Adverse Reaction (Verified 11/16/18 00:14) Other chapstick Allergy (Uncoded 11/16/18 00:14) swelling Primary Care Physician: Alex Pedersen MD [Primary Care Provider] - Prior records reviewed: Yes Surgical History: no surgical history Lives: Spouse/ Significant Other Smoking Status: Former smoker Alcohol: None Drugs: None - Family History Maternal Family History: Family History (Last Reviewed 10/08/18 @ 14:06 by Laine Jeronimo) Father Cancer Mother Asthma Family History: Reports: Asthma Paternal Family History: Family History (Last Reviewed 10/08/18 @ 14:06 by Laine Jeronimo) Father Cancer Mother Asthma Family History: Reports: Cancer Review of Systems General: Denies: Chills, Fever, Malaise, Subjective, Sweats Eyes: Denies: Visual changes - bilaterally, Blurred Vision - bilaterally ENT: Denies: Rhinorrhea, Sore throat Cardiovascular: Denies: Chest pain, Palpitations Respiratory: Reports: Dyspnea - Chronic shortness of breath, Orthopnea - Chronic orthopnea and unchanged. Denies: Cough Gastrointestinal: Reports: Abdominal pain, Nausea, Vomiting, Melena, Hematochezia Genitourinary: Reports: Hematuria, Frequency, - - Suprapubic discomfort and passage of large clots. Denies: Dysuria Musculoskeletal: Reports: Swelling. Denies: Neck pain, Back pain, Extremity Pain Skin: Denies: Rash, Wounds Neurological: Reports: Weakness, Parasthesia. Denies: Headache, Numbness Endocrine: Denies: Polyuria, Polydipsia Hematologic: Reports: Easy bruising, Easy bleeding. Denies: Lymphadenopathy Allergy: Denies: Uticaria, Swelling of the mouth, Swelling of the tongue Physical Exam Vital Signs/Narrative: Vital Signs Temp Pulse Resp BP Pulse Ox 11/16/18 00:15 98.5 F 102 H 20 H 164/90 H 92 Inital Vital Signs reviewed: Yes General: Well nourished, Well developed, Obese, No Acute Distress Head: Normocephalic, Atraumatic Eyes: Perrl, EOMI, Pale conjunctiva. Negative for: Scleral icterus ENT: Moist mucous membranes, No rhinorrhea Neck: Supple, Nontender, No lymphadenopathy, No JVD Cardiovascular: Regular rhythm, No murmurs, Normal S1, Normal S2, Tachycardia Respiratory: No distress, CTA bilaterally Abdomen: Soft, Nontender, Nondistended, Normal bowel sounds, No masses : - - Uncircumcised. Blood and clots noted at the meatus. Testes are descended bilaterally. Back: Nontender. Negative for: CVA tenderness Extremities: Nontender, Edema. Negative for: Calf Tenderness Skin: Normal color, No rash, No Trauma. Negative for: Cyanosis, Diaphoresis, Jaundice Neurological: Alert, Oriented x3, Cranial nerves II-XII grossly intact, Normal Sensation, Normal DTR. Negative for: Normal Strength, Normal Gait Psychological: Normal affect, Normal Mood Diagnostic/Tx/Re-eval Laboratory Results 11/16/18 11/16/18 00:35 00:35 WBC 9.5 RBC 3.53 L Hgb 9.9 L Hct 33.2 L MCV 94.1 H MCH 28.0 MCHC 29.8 L RDW Std Deviation 51.8 H RDW Coeff of Johanna 15.0 H Plt Count 307 MPV 9.4 Immature Gran % (Auto) 0.600 Neut % (Auto) 70.6 H Lymph % (Auto) 13.2 L [place] % (Auto) 8.9 Eos % (Auto) 6.4 H Baso % (Auto) 0.3 Absolute Neuts (auto) 6.7 Absolute Lymphs (auto) 1.25 Nucleated RBC % 0 Sodium 136 Potassium 4.0 Chloride 93 L Carbon Dioxide 41.0 H Anion Gap 2 L BUN 23 H Creatinine 1.27 Estim Creat Clear Calc 58.76 Est GFR (MDRD) Af Amer 73 Est GFR (MDRD) Non-Af 61 BUN/Creatinine Ratio 18.1 Glucose 148 H Calcium 8.9 Baseline hemoglobin 10.3. CO2 is normally elevated. CO2 of 41 is patient's baseline. - Medical Decision Making Three-way was placed and irrigation set up. Because he has been bleeding significantly on Lovenox CBC was obtained to compare H&H to prior and platelet count. His hemoglobin is 9.9. Prior was 10.3. This was then lab error. Patient fell asleep he desaturated 60%. Since he has a history of obstructive sleep apnea and sleeps with a BiPAP machine one was ordered. He is been irrigated with 2 to 2.5 L. His urine presently has the color of a white [place]. There are no clots noted. TCU was contacted. He may return with three-way in place. If there is no clots after observation and his urine remains a light blood tinge will discharge to TCU and contact urology in the morning. After irrigant was discontinued urine became bright red in color. Irrigation was resumed. He still has gross hematuria after 5+ liters of irrigation. Call is been placed to urology, Dr. Garcia and will contact hospitalist for readmission since he was discharged less than 24 hours ago. Spoke with Dr. Garcia who informed me that he is leaving [facility]. Recommended transfer. Patient requested [facility]. Since patient has multiple medical problems recommend admission to hospitalist with consult to urology. Rufus with Dr. Rick Gaffney institutional nutrition consultant at [facility]. He is accepted patient. ED Disposition - Plan for ED Patient: Diagnosis: Gross hematuria, Chronic respiratory failure with hypoxia and hypercapnia, Hypertension, ADELAIDE (obstructive sleep apnea), Stage 2 moderate COPD by GOLD classification, Secondary pulmonary arterial hypertension, Essential (primary) hypertension, BPH (benign prostatic hyperplasia) Referrals: Alex Pedersen MD [Primary Care Provider] -
--- NOTE | 2018-11-16 01:48 | ED.RN ---
PT REPORTS HE WEARS BIPAP AT NIGHT. POST MORPHINE PT SATTING 80'S. RESPIRATORY THERAPIST WILL BRING DOWN BIPAP. PT 02 INCREASED TO 5LNC. NOW SATTING 90-94%, WILL CONTINUE TO MONITOR. DR. DON LEAL.
[2018-11-16 02:44] VITALS: PULSE 113; RESP 12; RESP 19; O2SAT 98
--- NOTE | 2018-11-16 03:14 | ED.RN ---
CBI STOPPED PER ORDERS FROM DR. OCHOA.
--- NOTE | 2018-11-16 03:44 | ED.RN ---
per md's instructtion pt's sanchez was clamped and then had to be restarted because gross bloody.pt updated on care.
[2018-11-16 05:23] VITALS: BP 141/90; PULSE 102; RESP 20; TEMP 36.7; O2SAT 100
[2018-11-16 05:38] VITALS: PULSE 101; RESP 12; RESP 13; O2SAT 100
== END 2018-11-16 06:10 | disposition short-term general hospital (02) ==
LOC: ED 00:22
PROVIDERS: Emergency Provider Emergency Medicine; Family Provider Internal Medicine; PCP Internal Medicine
DX: R31.0 Gross hematuria (principal); J96.12 Chronic respiratory failure with hypercapnia; J96.11 Chronic respiratory failure with hypoxia; G47.33 Obstructive sleep apnea (adult) (pediatric); E11.22 Type 2 diabetes mellitus with diabetic chronic kidney disease; E66.01 Morbid (severe) obesity due to excess calories; E78.5 Hyperlipidemia, unspecified; I13.0 Hypertensive heart and chronic kidney disease with heart failure and stage 1 through stage 4 chronic kidney disease, or unspecified chronic kidney disease; I27.21 Secondary pulmonary arterial hypertension; I50.32 Chronic diastolic (congestive) heart failure; J44.9 Chronic obstructive pulmonary disease, unspecified; K21.9 Gastro-esophageal reflux disease without esophagitis; H40.9 Unspecified glaucoma; M19.90 Unspecified osteoarthritis, unspecified site; N18.9 Chronic kidney disease, unspecified; N40.0 Benign prostatic hyperplasia without lower urinary tract symptoms; Z87.891 Personal history of nicotine dependence; Z88.2 Allergy status to sulfonamides; Z88.8 Allergy status to other drugs, medicaments and biological substances
CPT/HCPCS: 51702; 80048; 85025; 94003; 96374; 96375; 99285; A4216; J2405

== ENCOUNTER → 2019-01-16 13:56 | Outpatient (CLI) | payer OTHER, SELFPAY ==
[2019-01-16 12:12] VITALS: BMI 42.8
[2019-01-16 14:55] LABS: Absolute Lymphocyte Count 0.92 X10^3/uL (0.83-4.51); Absolute Neutrophil Count 6.8 X10^3/uL (2.0-7.7); Basophil# 0.03 X10^3/uL; Basophil% 0.3 % (0-1); Eosinophil# 0.18 X10^3/uL; Eosinophils% 2.1 % (0-5); Hematocrit 32.6 % (40-54); Hemoglobin 9.6 g/dL (13.0-16.5); Lymphocyte # 0.92 X10^3/ul (4.0); Lymphocyte % 10.5 % (19-41); Mean Corp Hgb Conc 29.4 g/dL (32-36); Mean Corpuscular Hgb 27.3 pg (27.0-32.0); Mean Corpuscular Volume 92.6 fL (80-94); Mean Platelet Vol. 9.7 fl (6.2-12.0); Monocyte# 0.82 X10^3/uL; Monocyte% 9.4 % (0-10); NRBC Flagged by Analyzer 0 % (0-5); Neutrophil # 6.79 X10^3/uL (2.7-7.7); Neutrophil % 77.4 % (47-70); Platelet Count 226 K/mm3 (150-450); RBC Distribution Width SD 54.4 fl (35.1-43.9); Red Blood Count 3.52 M/mm3 (4.6-6.2); White Blood Count 8.8 K/mm3 (4.4-11.0)
[2019-01-16 15:26] LABS: ALB/GLOB Ratio 0.6 RATIO (0.9-2.4); AST(SGOT) 12 U/L (15-37); Alanine Aminotransfer ALT/SGPT 21 U/L (16-61); Albumin, Serum 2.8 g/dL (3.2-5.0); Alkaline Phosphatase 53 U/L (45-117); Anion Gap 7 (5-15); BUN 34 mg/dL (7-18); BUN/Creat Ratio 22.1 RATIO (10-20); Calcium,Total 8.6 mg/dL (8.5-10.1); Chloride 100 mmol/L (98-107); Creatinine, Serum 1.54 mg/dL (0.70-1.30); EST Glomerular Filtration Rate 49 mL/min (>60); Est Glom Filt Rate - Afr Amer 59 mL/min (>60); Globulin 4.6 g/dL (2.2-4.2); Glucose 135 mg/dL (74-106); Potassium 4.1 mmol/L (3.5-5.1); Protein, Total 7.4 g/dL (6.4-8.2); Sodium Level 139 mmol/L (136-145)
== END ==
PROVIDERS: Family Provider Internal Medicine; PCP Internal Medicine; Referring Provider Internal Medicine; Visit Provider Internal Medicine
DX: I27.21 Secondary pulmonary arterial hypertension (principal); D64.9 Anemia, unspecified
CPT/HCPCS: 36415; 80053; 85025

== ENCOUNTER → 2019-12-03 | Outpatient (CLI) | payer MEDICARE, OTHER, SELFPAY ==
[2019-12-03 05:41] VITALS: BMI 40.6
[2019-12-03 10:25] LABS: Absolute Lymphocyte Count 1.03 X10^3/uL (0.83-4.51); Absolute Neutrophil Count 4.2 X10^3/uL (2.0-7.7); Basophil# 0.02 X10^3/uL; Basophil% 0.3 % (0-1); Eosinophils% 7.5 % (0-5); Hematocrit 36.1 % (40-54); Hemoglobin 10.7 g/dL (13.0-16.5); Lymphocyte # 1.03 X10^3/ul (4.0); Lymphocyte % 15.5 % (19-41); Mean Corp Hgb Conc 29.6 g/dL (32-36); Mean Corpuscular Hgb 27.2 pg (27.0-32.0); Mean Corpuscular Volume 91.6 fL (80-94); Mean Platelet Vol. 9.3 fl (6.2-12.0); Monocyte# 0.86 X10^3/uL; Monocyte% 12.9 % (0-10); NRBC Flagged by Analyzer 0 % (0-5); Neutrophil # 4.23 X10^3/uL (2.7-7.7); Neutrophil % 63.6 % (47-70); Platelet Count 233 K/mm3 (150-450); RBC Distribution Width CV 14.9 % (11.6-14.6); RBC Distribution Width SD 50.5 fl (35.1-43.9); Red Blood Count 3.94 M/mm3 (4.6-6.2); White Blood Count 6.7 K/mm3 (4.4-11.0)
[2019-12-03 10:43] LABS: ALB/GLOB Ratio 0.8 RATIO (0.9-2.4); AST(SGOT) 14 U/L (15-37); Alanine Aminotransfer ALT/SGPT 19 U/L (16-61); Albumin, Serum 3.4 g/dL (3.2-5.0); Alkaline Phosphatase 49 U/L (45-117); Anion Gap 5 (5-15); BUN 28 mg/dL (7-18); BUN/Creat Ratio 13.5 RATIO (10-20); Chloride 100 mmol/L (98-107); Creatinine, Serum 2.07 mg/dL (0.70-1.30); EST Glomerular Filtration Rate 34 mL/min (>60); Est Glom Filt Rate - Afr Amer 42 mL/min (>60); Globulin 4.1 g/dL (2.2-4.2); Glucose 108 mg/dL (74-106); Potassium 4.7 mmol/L (3.5-5.1); Protein, Total 7.5 g/dL (6.4-8.2); Sodium Level 138 mmol/L (136-145)
== END | disposition home or self-care (01) ==
PROVIDERS: PCP Internal Medicine; Referring Provider Internal Medicine; Visit Provider Internal Medicine
DX: I10 Essential (primary) hypertension (principal); I27.21 Secondary pulmonary arterial hypertension; G47.33 Obstructive sleep apnea (adult) (pediatric)
CPT/HCPCS: 36415; 80053; 85025

== ENCOUNTER → 2020-03-18 13:09 | Outpatient (CLI) | payer MEDICARE, OTHER, SELFPAY ==
[2019-12-12 17:44] VITALS: BMI 40.6
[2020-03-18 13:53] LABS: Anion Gap 0 (5-15); BUN 48 mg/dL (7-18); BUN/Creat Ratio 26.1 RATIO (10-20); Calcium,Total 8.9 mg/dL (8.5-10.1); Chloride 104 mmol/L (98-107); Cholesterol 214 mg/dL (200); Creatinine, Serum 1.84 mg/dL (0.70-1.30); EST Glomerular Filtration Rate 39 mL/min (>60); Est Glom Filt Rate - Afr Amer 48 mL/min (>60); Glucose 114 mg/dL (74-106); High Density Lipoprotein 49 mg/dL; Potassium 4.4 mmol/L (3.5-5.1); Sodium Level 140 mmol/L (136-145); Triglycerides 68 mg/dL; Very Low Density Lipoprotein 14 mg/dL (5-40)
[2020-03-18 13:59] LABS: Hemoglobin A1c 6.1 % (3.8-5.6)
[2020-03-18 15:58] LABS: Microalbumin,Random Urine 60.6 mg/L (NO RANGE EST.); Microalbumin:Creatinine Ratio 123.9 mg/g CRE (<30 mg/g CRE)
[2020-03-18 21:28] LABS: Xtra Tube EP Lab EXTRA TUBE
== END ==
PROVIDERS: PCP Internal Medicine; Referring Provider Internal Medicine; Visit Provider Internal Medicine
DX: E11.9 Type 2 diabetes mellitus without complications (principal); I10 Essential (primary) hypertension
CPT/HCPCS: 36415; 80048; 80061; 82043; 82570; 83036

== ENCOUNTER → 2020-07-03 16:17 | Outpatient (CLI) | payer MEDICARE, OTHER, SELFPAY ==
[2020-07-03 15:36] VITALS: BMI 25.8
[2020-07-03 16:39] LABS: Absolute Lymphocyte Count 0.92 X10^3/uL (0.83-4.51); Absolute Neutrophil Count 7.3 X10^3/uL (2.0-7.7); Basophil# 0.02 X10^3/uL; Basophil% 0.2 % (0-1); Eosinophil# 0.18 X10^3/uL; Hematocrit 32.8 % (40-54); Hemoglobin 9.6 g/dL (13.0-16.5); Lymphocyte # 0.92 X10^3/ul (0.83-4.51); Mean Corp Hgb Conc 29.3 g/dL (32-36); Mean Corpuscular Volume 92.4 fL (80-94); Mean Platelet Vol. 9.1 fl (6.2-12.0); Monocyte# 0.79 X10^3/uL; Monocyte% 8.6 % (0-10); NRBC Flagged by Analyzer 0 % (0-5); Neutrophil # 7.29 X10^3/uL (2.7-7.7); Neutrophil % 78.9 % (47-70); Platelet Count 265 K/mm3 (150-450); RBC Distribution Width CV 14.6 % (11.6-14.6); RBC Distribution Width SD 50.1 fl (35.1-43.9); Red Blood Count 3.55 M/mm3 (4.6-6.2); White Blood Count 9.2 K/mm3 (4.4-11.0)
[2020-07-03 17:18] LABS: Anion Gap 2 (5-15); BUN 38 mg/dL (7-18); BUN/Creat Ratio 23.9 RATIO (10-20); Calcium,Total 9.1 mg/dL (8.5-10.1); Chloride 102 mmol/L (98-107); Creatinine, Serum 1.59 mg/dL (0.70-1.30); EST Glomerular Filtration Rate 47 mL/min (>60); Est Glom Filt Rate - Afr Amer 56 mL/min (>60); Glucose 108 mg/dL (74-106); Potassium 4.1 mmol/L (3.5-5.1); Sodium Level 139 mmol/L (136-145)
== END ==
PROVIDERS: PCP Internal Medicine; Referring Provider Internal Medicine; Visit Provider Internal Medicine
DX: E11.9 Type 2 diabetes mellitus without complications (principal)
CPT/HCPCS: 36415; 80048; 85025

== ENCOUNTER → 2020-08-19 14:37 | Outpatient (CLI) | payer MEDICARE, OTHER, SELFPAY ==
[2020-07-03 15:36] VITALS: BMI 25.8
[2020-08-11 14:52] VITALS: BMI 25.8
--- NOTE | 2020-08-19 15:41 | NEURO ---
NCS and/or EMG Patient Report Ordering Doctor: Alex Pedersen DATE OF SERVICE: 08/19/20 Bhupinder presents for electrodiagnostic testing of the right upper limb. He reports progressively worsening numbness and tingling in the right hand. Electrodiagnostic findings: Right median motor nerve demonstrates significantly prolonged distal latency with reduced amplitude and conduction velocity. Right ulnar motor responses within normal limits, including conduction across the elbow. Absent right median F wave is noted. Absent right median sensory response at the wrist and palm. Needle EMG, muscles tested showed no evidence of denervation with normal motor unit action potentials. Electrodiagnostic assessment: This is an abnormal study in the right upper limb. 1. Electrodiagnostic findings demonstrate right-sided median mononeuropathy. This is consistent with an advanced right carpal tunnel syndrome.
== END ==
PROVIDERS: PCP Internal Medicine; Referring Provider Internal Medicine; Visit Provider Internal Medicine
DX: G56.01 Carpal tunnel syndrome, right upper limb (principal)
CPT/HCPCS: 95886; 95909

== ENCOUNTER → 2020-09-10 16:18 | Outpatient (CLI) | payer MEDICARE, OTHER, SELFPAY ==
[2020-09-10 15:39] VITALS: BMI 38.5
[2020-09-10 17:01] LABS: Erythrocyte Sedimentation Rate 122 mm/hr (0-20)
[2020-09-10 17:03] LABS: Absolute Lymphocyte Count 1.14 X10^3/uL (0.83-4.51); Absolute Neutrophil Count 7.9 X10^3/uL (2.0-7.7); Basophil# 0.01 X10^3/uL; Basophil% 0.1 % (0-1); Eosinophil# 0.51 X10^3/uL; Eosinophils% 4.8 % (0-5); Hematocrit 32.9 % (40-54); Hemoglobin 9.7 g/dL (13.0-16.5); Lymphocyte # 1.14 X10^3/ul (0.83-4.51); Lymphocyte % 10.8 % (19-41); Mean Corp Hgb Conc 29.5 g/dL (32-36); Mean Corpuscular Hgb 27.2 pg (27.0-32.0); Mean Corpuscular Volume 92.4 fL (80-94); Mean Platelet Vol. 9.6 fl (6.2-12.0); Monocyte# 0.93 X10^3/uL; Monocyte% 8.8 % (0-10); NRBC Flagged by Analyzer 0 % (0-5); Neutrophil # 7.93 X10^3/uL (2.7-7.7); Neutrophil % 75.1 % (47-70); Platelet Count 259 K/mm3 (150-450); RBC Distribution Width CV 15.1 % (11.6-14.6); RBC Distribution Width SD 50.9 fl (35.1-43.9); Red Blood Count 3.56 M/mm3 (4.6-6.2); White Blood Count 10.6 K/mm3 (4.4-11.0)
[2020-09-10 17:20] LABS: ALB/GLOB Ratio 0.6 RATIO (0.9-2.4); AST(SGOT) 13 U/L (15-37); Alanine Aminotransfer ALT/SGPT 23 U/L (16-61); Albumin, Serum 2.8 g/dL (3.2-5.0); Alkaline Phosphatase 61 U/L (45-117); Anion Gap 4 (5-15); BUN 36 mg/dL (7-18); BUN/Creat Ratio 24.2 RATIO (10-20); Calcium,Total 8.6 mg/dL (8.5-10.1); Chloride 98 mmol/L (98-107); Creatinine, Serum 1.49 mg/dL (0.70-1.30); EST Glomerular Filtration Rate 50 mL/min (>60); Est Glom Filt Rate - Afr Amer 61 mL/min (>60); Globulin 4.4 g/dL (2.2-4.2); Glucose 154 mg/dL (74-106); Potassium 4.2 mmol/L (3.5-5.1); Protein, Total 7.2 g/dL (6.4-8.2); Sodium Level 137 mmol/L (136-145)
== END ==
PROVIDERS: PCP Internal Medicine; Referring Provider Physician Assistant; Visit Provider Physician Assistant
DX: E11.9 Type 2 diabetes mellitus without complications (principal); G47.33 Obstructive sleep apnea (adult) (pediatric); I10 Essential (primary) hypertension; M19.90 Unspecified osteoarthritis, unspecified site
CPT/HCPCS: 36415; 80053; 85025; 85652; 86140

== ENCOUNTER 2020-09-29 06:02 | Day surgery (SDC) | payer MEDICARE, OTHER, SELFPAY ==
[2020-09-04 11:08] VITALS: BMI 38.5
[2020-09-10 15:39] VITALS: BMI 38.5
--- NOTE | 2020-09-28 13:24 | PCM.HP.BLA ---
History and Physical Date of Admission: 09/29/20 Date of Service: 09/04/20 MR#:[id number]: PRECIOUS CHIRep #:[id number] Provider:Dr. 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 Required: No Accompanied by: Family / Other Is patient in pain?: Yes Pain scale (1-10): 6 Allergies lisinopril Allergy (Severe, Verified 09/04/20 10:53) Angioedema latanoprost [From Xalatan] Adverse Reaction (Unknown, Verified 09/04/20 10:53) Other Sulfa (Sulfonamide Antibiotics) Adverse Reaction (Verified 09/04/20 10:53) Other chapstick Allergy (Uncoded 09/04/20 10:53) swelling Medications brimonidine 0.2 % eye drops 1 drp OPHTHALMIC BID ml 05/04/18 [History Confirmed 09/04/20] dorzolamide 2 %-timolol 0.5 % (PF) eye drops 1 drp OPHTHALMIC BID 05/04/18 [History Confirmed 09/04/20] omeprazole 20 mg capsule,delayed release 20 mg PO DAILY 05/04/18 [History Confirmed 09/04/20] tamsulosin 0.4 mg capsule 0.4 mg PO DAILY 05/30/18 [History Confirmed 09/04/20] latanoprost 0.005 % eye drops 1 drp OPHTHALMIC QPM 09/06/18 [History Confirmed 09/04/20] acetaminophen 650 mg PO Q6H PRN PRN tab 11/15/18 [Rx Confirmed 09/04/20] albuterol sulfate 2.5 mg INHALATION Q2H PRN PRN vial.neb. 11/15/18 [Rx Confirmed 09/04/20] fluticasone propionate 2 spray NASAL BID PRN nasal.sry 11/15/18 [Rx Confirmed 09/04/20] ipratropium-albuterol 3 ml INHALATION Q6HWA.RT 11/15/18 [History Confirmed 09/04/20] diclofenac sodium transdermal patch TOPICAL 12/06/18 [History Confirmed 09/04/20] oxygen MISCELLANEOUS 12/06/18 [History Confirmed 09/04/20] cholecalciferol (vitamin D3) 1,250 mcg (50,000 unit) tablet 50,000 unit PO QWEEK #10 tab 02/04/19 [Rx Confirmed 09/04/20] tramadol 50 mg tablet 50 mg PO .QID PRN tab 02/04/19 [History Confirmed 09/04/20] hydralazine 50 mg tablet 50 mg PO TID tab 08/28/19 [History Confirmed 09/04/20] labetalol 200 mg tablet 200 mg PO TID tab 08/28/19 [History Confirmed 09/04/20] potassium chloride 10 mEq tablet,extended release 10 meq PO DAILY PRN tab 08/28/19 [History Confirmed 09/04/20] sildenafil 100 mg tablet 100 mg PO DAILY PRN tab 08/28/19 [History Confirmed 09/04/20] losartan 100 mg tablet 100 mg PO DAILY #90 tab 03/04/20 [Rx Confirmed 09/04/20] testosterone cypionate 100 mg/mL intramuscular oil 50 mg IM Q2W #5 ml 03/23/20 [Rx Confirmed 09/04/20] mometasone-formoterol HFA 100 mcg-5 mcg/actuation aerosol inhaler 2 puff INHALATION Q12H #13 g 06/01/20 [Rx Confirmed 09/04/20] tiotropium bromide 2.5 mcg/actuation mist for inhalation 2 puff INHALATION DAILY #4 g 06/01/20 [Rx Confirmed 09/04/20] Lift Chair #1 ea 07/03/20 [Rx Confirmed 09/04/20] alogliptin 25 mg tablet 12.5 mg PO QAM #60 tablet 07/03/20 [Rx Confirmed 09/04/20] gabapentin 10 % topical cream in packet 1 applic TOPICAL BID #30 gm 07/03/20 [Rx Confirmed 09/04/20] triamcinolone acetonide 0.1 % topical cream 1 applic TOPICAL DAILY #453.6 gm 07/03/20 [Rx Confirmed 09/04/20] furosemide 40 mg tablet 40 mg PO BID #180 tab 08/07/20 [Rx Confirmed 09/04/20] PFSH Medical History (Updated 09/07/20 @ 16:[address] 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 Hyperlipidemia Low testosterone in male Lower extremity weakness Morbid obesity Normocytic anemia Obesity ADELAIDE (obstructive sleep apnea) Osteoarthritis Secondary pulmonary arterial hypertension Shortness of breath Stage 2 moderate COPD by GOLD classification Thoracic aortic aneurysm without rupture Tobacco use Type 2 diabetes mellitus Ulcer of right lower extremity Family History Father Cancer Mother Asthma Social History (Updated 09/04/20 @ 11:06 by Lauren Rai) Smoking Status: Former smoker second hand exposure: No alcohol intake: current alcohol intake frequency: a few times a week substance use type: does not use caffeine: No what type of physical activity do you participate in: none HPI LEFT SHOULDER Details: Parts of this documentation were recorded by a scribe, this documentation accurately reflects the service provided and the decisions made by me, Dr. Rodney Dent, 09/04/20 0802. PRECIOUS CHI is a 65 year old M here today for c/o Lt shoulder and knee pain as well as complains of carpal tunnel syndrome. Patient has had this pain for about 5-6 years that has only gotten worse. Denies any previous surgery, injury, or PT to shoulder. Pain generalized in the shoulder and does not radiate into arm. Denies numbness, tingling or other associated symptoms. Had X-rays of his shoulder on 03/30/20. Knee pain has been ongoing for around the same time. Denies any previous surgery but has had Visco injections in the past that were effective. Dr. Mcconnell gives monthly injections into knee for his pain. ROS Const All systems reviewed & are unremarkable except as noted in H Ortho Exam General General: Yes no acute distress Neurologic: Yes alert and Yes oriented x3 Psychologic: Yes reasonable and appropriate Right Wrist/Hand WRIST: Numbness present in the radial 3 digits no sign of infection able to flex and extend the digits no open wounds or skin lesions Left Knee KNEE: Severe bilateral lower extremity edema, intact extensor mechanism no collateral instability no sign of infection about the knee Left Shoulder Skin/Wound: No ecchymosis, No erythema and No swelling Testing: Yes PROM-Forward Elevation 0-180 (76) and Yes PROM-External Rotation at side 0-60 (25) SHOULDER: no joint effusion, 40 degree inernal , severe crepitus limited range of motion and strength Supplemental Info 03/30/2020 x-ray left shoulder: Advanced glenohumeral arthrosis Patient has multiple concerns today. Patient has pain in his left shoulder, and knee as well as carpal tunnel in his right hand. Personally reviewed X-rays which shows advanced arthritis in both his shoulder and knee. Discussed multiple options with patient including surgery, injections and therapy with patient. Because of patient's comorbidities he would like to avoid surgery on the knee and shoulder. Patient would like to have three PRP injections in the left knee, these will be ordered for him. Patient would like to try a corticosteroid injection into his left shoulder he will be be referred to Dr. Hill for corticosteroid injections under X-ray due to the severity of his arthritis. He would also like to trial home physical therapy for the shoulder. Patient also has complaint of carpal tunnel syndrome in right hand. Denies surgery, fracture, or treatment to this hand. Does wear a brace at night which is effective. Does have severe numbness and tingling during the day. EMG/NCS done 08/19/20 shows severe carpal tunnel syndrome. Would like to proceed with surgical repair. Will need approval from PCP before this can be done. Reviewed the pre-operative plans with the patient. Risks and benefits of the procedure were fully explained, including but not limited to infection, neurovascular injury, continued pain, arthritis, stiffness, need for further surgery, re-injury, DVT, PE, general risks of anesthesia, and loss of limb or life. The patient understands all the risks and does wish to proceed with written consent. All questions answered. Follow up in or sooner if pain, swelling, numbness or associated symptoms, or concerns develop. Coding Level of Care Code Off vis,new,level 3 Diagnoses Osteoarthritis of left glenohumeral joint M19.012 Chronic diastolic (congestive) heart failure I50.32 Morbid obesity E66.01 Chronic kidney disease, stage 3 N18.3 Type 2 diabetes mellitus E11.9 Lower extremity weakness R29.898 Left knee DJD M17.12 Right carpal tunnel syndrome G56.01 Assessment and Plan Assessment and Plan (1) Osteoarthritis of left glenohumeral joint: Status: Acute (2) Chronic diastolic (congestive) heart failure: Status: Chronic (3) Morbid obesity: Status: Chronic (4) Chronic kidney disease, stage 3: Status: Chronic (5) Type 2 diabetes mellitus: Status: Chronic (6) Lower extremity weakness: Status: Chronic (7) Left knee DJD: Status: Acute (8) Right carpal tunnel syndrome: Status: Acute Plan - Dr. Rodney Dent, DO: Patient has multiple concerns today. Patient has pain in his left shoulder, and knee as well as carpal tunnel in his right hand. Personally reviewed X-rays which shows advanced arthritis in both his shoulder and knee. Discussed multiple options with patient including surgery, injections and therapy with patient. Because of patient's comorbidities he would like to avoid surgery on the knee and shoulder. Patient would like to have three PRP injections in the left knee, these will be ordered for him. Patient would like to try a corticosteroid injection into his left shoulder he will be be referred to Dr. Hill for corticosteroid injections under X-ray due to the severity of his arthritis. He would also like to trial home physical therapy for the shoulder. Patient also has complaint of carpal tunnel syndrome in right hand. Denies surgery, fracture, or treatment to this hand. Does wear a brace at night which is effective. Does have severe numbness and tingling during the day. EMG/NCS done 08/19/20 shows severe carpal tunnel syndrome. Would like to proceed with surgical repair. Will need approval from PCP before this can be done. Reviewed the pre-operative plans with the patient. Risks and benefits of the procedure were fully explained, including but not limited to infection, neurovascular injury, continued pain, arthritis, stiffness, need for further surgery, re-injury, DVT, PE, general risks of anesthesia, and loss of limb or life. The patient understands all the risks and does wish to proceed with written consent. All questions answered. Follow up in or sooner if pain, swelling, numbness or associated symptoms, or concerns develop. 09/07/20 [id number]<Electronically signed by Rodney Dent DO>Date Rodney Dent DO I have re-examined the patient. There are no clinical changes since date of exam
[2020-09-29] VITALS (7 sets, daily range): BP systolic 118–151; BP diastolic 64–87; PULSE 78–103; RESP 18–22; TEMP 36.3–36.6; O2SAT 97–100; BMI 40.0
[2020-09-29] MEDS: Lactated Ringers 1,000 ML 100 ML IV (06:53)
[2020-09-29] MEDS: Cefazolin 2 GM in 0.9% Normal Saline 100 ML IV (07:34)
[2020-09-29] MEDS: Lidocaine 1% /Epi 1:100 (50ml) 50 ML VIAL (07:57)
--- NOTE | 2020-09-29 08:08 | PCM.OPRPT ---
Report of Operation Date of Procedure: 09/29/20 Description of Surgical Findings:: Preoperative diagnosis; right carpal tunnel syndrome Postoperative diagnosis; same Procedure: Right open carpal tunnel release Anesthesia: Local with MAC Tourniquet time; 12 minutes 250 mm Hg Complications: None Indication for procedure; This is a 65-year-old male with long-standing symptoms consistent with carpal tunnel syndrome the patient did have electrodiagnostic evidence of this and has failed conservative treatment. Risks benefits and alternatives were reviewed including risks of bleeding infection nerve artery tissue damage need for further surgery and continued pain and symptoms, hypersensitivity to scar and Pillar pain. Procedure; The patient was met in the preoperative holding area the operative extremity was identified by both patient and physician and was marked the patient was met by anesthesia and brought back to the operating room and transferred to the operating table in the supine position. Aanesthesia was started. A well-padded tourniquet was placed on the operative upper extremity. The patient was prepped and draped in the usual sterile fashion. A timeout was called to ensure the proper patient procedure and extremity were being contemplated. 0.5 percent Marcaine with epinephrine was injected into the incisional area. An Esmarch was used to exsanguinate the extremity. The tourniquet was inflated to 250 mmHg. A midline incision was made with a 15 blade scalpel between the thenar and hypothenar eminence. This was carried down through the skin and subcutaneous tissue. Roxanne retractors were then used, a deep blade scalpel was used to make a deep incision in the palmar aponeurosis. The roxanne retractors were then placed deep to this and the transverse carpal ligament was identified a perforation was made with a scalpel and a Littler scissors were used to complete the release of the transverse carpal ligament distally under direct visualization with the tips facing ulnarly until the perivascular fat was reached. Then turning our attention proximally using a tension slide technique the proximal extent of the transverse carpal ligament was released . There was noted to be hourglass configuration to the median nerve and hypertrophy of the transverse carpal ligament without other findings. The wound was thoroughly irrigated and was closed with 4-0 nylon vertical mattress stitches. Dressing was applied in the form of xeroform 4 x 4, web roll and an nehal wrap. Tourniquet was let down there is no intraoperative complications patient tolerated the procedure well and was transferred to the PACU. All counts were correct.
--- NOTE | 2020-09-29 08:11 | PCM.DC ---
Discharge Instructions Activity Keep extremity elevated above heart level: Operative Extremity Dressing / Incision Call your doctor if you observe: Shortness of breath and Chest pain Remove Dressing in: 2 days Additional Dressing/Incision Instructions:: Ice and elevate operative extremity next 72 hours. Keep dressing on clean and dry for 48 hours then may remove and allow warm soapy water to rinse over incision but do not submerge until sutures are out. Then apply bandaid over incision and change daily. encourage finger range of motion. Not lift more than 1/2 pound. Do not bear weight through palm. If requires pressure through hand for crutch then use brace so no direct pressure on incision, as too much pressure on incision will cause wound dehiscence. Follow Up Care Please Follow Up With: Rodney Dent DO When: 2 weeks Test Results: Test results from this visit will be discussed in further detail at your follow-up appointment, if applicable. Discharge Plan Admission Attending Provider: Rodney Dent Primary Care Provider: Alex Pedersen Discharge Orders/Prescriptions Prescriptions: No Action tramadol 50 mg tablet 50 mg PO .QID RF: 0 omeprazole 20 mg capsule,delayed release(DR/EC) 20 mg PO DAILY RF: 0 dorzolamide-timolol (PF) 2-0.5 % drops 1 drp OPHTHALMIC BID RF: 0 brimonidine 0.2 % drops 1 drp OPHTHALMIC BID RF: 0 tamsulosin 0.4 mg capsule 0.4 mg PO DAILY RF: 0 latanoprost 0.005 % drops 1 drp OPHTHALMIC QPM RF: 0 oxygen miscellaneous RF: 0 cholecalciferol (vitamin D3) 50,000 unit tablet 50,000 unit PO QWEEK Qty: 10 RF: 0 sildenafil 100 mg tablet 100 mg PO DAILY PRN (Reason: OTHER) RF: 0 potassium chloride 10 mEq tablet extended release 10 meq PO DAILY PRN (Reason: SUPPLEMENT) RF: 0 Dulera 100-5 mcg/actuation HFA aerosol inhaler 2 puff INHALATION Q12H Qty: 13 RF: 5 Spiriva Respimat 2.5 mcg/actuation mist 2 puff INHALATION DAILY Qty: 4 RF: 5 gabapentin 10 % cream in packet 1 applic TOPICAL BID Qty: 30 RF: 5 (DME) Lift Chair See Rx Instructions .Route .MEDSUPPLY Qty: 1 RF: 0 alogliptin 25 mg tablet 12.5 mg PO QAM Qty: 60 RF: 1 acetaminophen 325 MG tablet 650 mg PO Q6H PRN PRN (Reason: Non-cardiac pain (mod-severe)) RF: 0 albuterol sulfate 2.5 MG/3 ML solution for nebulization 2.5 mg inhalation Q2H PRN PRN (Reason: dyspnea, wheezing) RF: 0 fluticasone propionate 1 SPRAY spray,suspension 2 spray NASAL BID PRN (Reason: NASAL CONGESTION) RF: 0 ipratropium-albuterol 3 ML solution for nebulization 3 ml inhalation Q6HWA.RT RF: 0 labetalol 200 mg tablet 200 mg PO TID RF: 0 hydralazine 50 mg tablet 50 mg PO TID RF: 0 diclofenac sodium [Voltaren] 75 mg Tablet,Delayed Release (Dr/Ec) 75 mg PO BID PRN (Reason: Pain) RF: 0 triamcinolone acetonide [Triderm] 0.1 % cream 1 applic TOPICAL PRN PRN (Reason: OTHER) RF: 0 losartan 100 mg tablet 100 mg PO DAILY Qty: 90 RF: 3 testosterone cypionate [Depo-Testosterone] 100 mg/mL oil 50 mg IM Q2W Qty: 5 RF: 0 furosemide 40 mg tablet 40 mg PO BID Qty: 180 RF: 3 Disposition Discharge Orders: Discharge Patient (Routine); Ordered 09/29/20 Ordered By: Dr. Rodney Dent
[2020-09-29 09:05] LABS: Bedside Glucose 96 mg/dL (70-110)
[2020-09-29] MEDS: oxyCODONE 5 MG Tablet PO (09:06)
== END 2020-09-29 09:39 | disposition home or self-care (01) ==
LOC: SDC 06:02 → AC 06:08
PROVIDERS: PCP Internal Medicine; Referring Provider Orthopaedic Surgery; Visit Provider Orthopaedic Surgery
PROC: (CPT 64721; principal; 2020-09-29 07:15)
DX: G56.01 Carpal tunnel syndrome, right upper limb (principal); M19.012 Primary osteoarthritis, left shoulder; M17.12 Unilateral primary osteoarthritis, left knee; I12.9 Hypertensive chronic kidney disease with stage 1 through stage 4 chronic kidney disease, or unspecified chronic kidney disease; I50.32 Chronic diastolic (congestive) heart failure; E11.22 Type 2 diabetes mellitus with diabetic chronic kidney disease; N18.30 Chronic kidney disease, stage 3 unspecified; R53.81 Other malaise; K21.9 Gastro-esophageal reflux disease without esophagitis; E78.5 Hyperlipidemia, unspecified; G47.30 Sleep apnea, unspecified; E66.01 Morbid (severe) obesity due to excess calories; Z68.41 Body mass index [BMI] 40.0-44.9, adult; Z87.891 Personal history of nicotine dependence; Z79.51 Long term (current) use of inhaled steroids; Z79.899 Other long term (current) drug therapy
CPT/HCPCS: 64721; 82962; J7120; J2405

== ENCOUNTER 2020-10-24 15:27 | Inpatient (IN) | payer MEDICARE, OTHER, SELFPAY ==
[2020-10-12 14:25] VITALS: BMI 40.0
[2020-10-24 15:30] VITALS: BP 102/58; PULSE 82; RESP 16; TEMP 36.4; O2SAT 93; BMI 40.0
--- NOTE | 2020-10-24 15:52 | EKG12_ITS ---
Test Reason : CP Blood Pressure : / mmHG Vent. Rate : 087 BPM Atrial Rate : 087 BPM P-R Int : 164 ms QRS Dur : 076 ms QT Int : 362 ms P-R-T Axes : 038 -05 057 degrees QTc Int : 435 ms Sinus rhythm with occasional Premature ventricular complexes Otherwise normal ECG Confirmed by JANEL HOLDER, JJ ([id number]), city editor BERKLEY MCARTHUR ([id number]) on 10/27/2020 9:42:07 AM Referred By: ED PHYSICIAN Confirmed By:JJ ISLAS MD
--- NOTE | 2020-10-24 15:55 | ED.RN ---
patient with open wounds to entire buttocks. patient also has scrotal edema with excoriation.
--- NOTE | 2020-10-24 16:04 | EDS_ITS ---
HPI History of Present Illness Chief Complaint: Weakness Informant: patient, spouse/S.O. and family Narrative Narrative: Extremely pleasant 65-year-old male presents with generalized weakness asking for help with rehabilitation. 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 He has had chronic lower extremity weakness but has been able to ambulate with arm crutches. He states that towards the end of September he underwent carpal tunnel surgery and when he woke from anesthesia he had some angioedema. He states that the legs have been significantly weaker since that time. He is pretty much been wheelchair-bound. He has been using a chairlift in the house to go from floor to floor. He has developed significant scrotal swelling and is having skin breakdown in the perineum and genitalia. He states that that has become increasingly painful. He notes a chronic wound to the right lower leg which he had been seen wound care clinic for but has not been there for 2 years. They have been managing him at home. He does have a history of diabetes. No reported fevers. [facility] Medical History Acute respiratory failure with hypoxia and hypercapnia Anemia Arthritis aspiration of left knee Bilateral pulmonary infiltrates on CXR BPH (benign prostatic hyperplasia) Bradycardia Cardiology follow-up encounter Chronic cutaneous venous stasis ulcer Chronic diastolic (congestive) heart failure Chronic kidney disease, stage 3 Chronic venous insufficiency Chronic venous stasis dermatitis COPD (chronic obstructive pulmonary disease) Debility Diabetes Disability of walking Essential (primary) hypertension Former smoker Generalized weakness GERD (gastroesophageal reflux disease) Glaucoma 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 History of CHF (congestive heart failure) History of edema History of GI bleed History of renal disease History of ulceration Hx of cataract Hyperlipidemia Hypertension Kidney stones Lip swelling Low testosterone in male Lower extremity weakness Morbid obesity Normocytic anemia Obesity ADELAIDE (obstructive sleep apnea) Osteoarthritis Pressure ulcer Secondary pulmonary arterial hypertension Shortness of breath Shortness of breath on exertion Sleep apnea Stage 2 moderate COPD by GOLD classification Thoracic aortic aneurysm without rupture Tobacco use Type 2 diabetes mellitus Ulcer of right lower extremity Wears glasses Home Medications brimonidine 0.2 % eye drops 1 drp OPHTHALMIC BID ml 05/04/18 [History Last Taken Unknown] dorzolamide 2 %-timolol 0.5 % (PF) eye drops 1 drp OPHTHALMIC BID 05/04/18 [History Last Taken Unknown] omeprazole 20 mg capsule,delayed release 20 mg PO DAILY 05/04/18 [History Last Taken Unknown] tamsulosin 0.4 mg capsule 0.4 mg PO DAILY 05/30/18 [History Last Taken Unknown] latanoprost 0.005 % eye drops 1 drp OPHTHALMIC QPM 09/06/18 [History Last Taken Unknown] acetaminophen 650 mg PO Q6H PRN PRN tab 11/15/18 [Rx Last Taken Unknown] albuterol sulfate 2.5 mg INHALATION Q2H PRN PRN vial.neb. 11/15/18 [Rx Last Taken Unknown] fluticasone propionate 2 spray NASAL BID PRN nasal.sry 11/15/18 [Rx Last Taken Unknown] ipratropium-albuterol 3 ml INHALATION Q6HWA.RT 11/15/18 [History Last Taken Unknown] oxygen MISCELLANEOUS 12/06/18 [History Last Taken Unknown] cholecalciferol (vitamin D3) 1,250 mcg (50,000 unit) tablet 50,000 unit PO QWEEK #10 tab 02/04/19 [Rx Last Taken Unknown] tramadol 50 mg tablet 50 mg PO .QID tab 02/04/19 [History Last Taken Unknown] hydralazine 50 mg tablet 50 mg PO TID tab 08/28/19 [History Last Taken Unknown] labetalol 200 mg tablet 200 mg PO TID tab 08/28/19 [History Last Taken Unknown] sildenafil 100 mg tablet 100 mg PO DAILY PRN tab 08/28/19 [History Last Taken Unknown] losartan 100 mg tablet 100 mg PO DAILY #90 tab 03/04/20 [Rx Last Taken Unknown] testosterone cypionate 100 mg/mL intramuscular oil 50 mg IM Q2W #5 ml 03/23/20 [Rx Last Taken Unknown] mometasone-formoterol HFA 100 mcg-5 mcg/actuation aerosol inhaler 2 puff INHALATION Q12H #13 g 06/01/20 [Rx Last Taken Unknown] tiotropium bromide 2.5 mcg/actuation mist for inhalation 2 puff INHALATION DAILY #4 g 06/01/20 [Rx Last Taken Unknown] Lift Chair #1 ea 07/03/20 [Rx Last Taken Unknown] gabapentin 10 % topical cream in packet 1 applic TOPICAL BID #30 gm 07/03/20 [Rx Last Taken Unknown] furosemide 40 mg tablet 40 mg PO BID #180 tab 08/07/20 [Rx Last Taken Unknown] diclofenac sodium [Voltaren] 75 mg PO BID PRN 09/08/20 [History Last Taken Unknown] triamcinolone acetonide [Triderm] 1 applic TOPICAL PRN PRN 09/08/20 [History Last Taken Unknown] sitagliptin 100 mg tablet 100 mg PO DAILY #90 tab 09/30/20 [Rx Last Taken Unknown] Allergy/AdvReac Type Severity Reaction Status Date / Time lisinopril Allergy Severe Angioedema Verified 10/24/20 15:56 Sulfa (Sulfonamide AdvReac Other Verified 10/24/20 15:56 Antibiotics) chapstick Allergy swelling Uncoded 10/24/20 15:56 Family History Father Cancer Mother Asthma Surgical History History of cataract extraction Social History Smoking Status: Former smoker second hand exposure: No alcohol intake: current alcohol intake frequency: a few times a week substance use type: does not use caffeine: No what type of physical activity do you participate in: none ROS ROS ED Constitutional Constitutional ED: Denies chills or weight loss Eyes Eyes: Denies change in vision or diplopia ENT ENT ED: Denies ear pain, rhinorrhea or sore throat Cardiovascular Cardiovascular: Denies chest pain, orthopnea, palpitations or racing heartbeat Respiratory/Chest Respiratory/Chest: Denies cough, dyspnea or orthopnea Gastrointestinal Gastrointestinal: Denies abdominal pain, diarrhea, nausea or vomiting Genitourinary Genitourinary ED: Denies dysuria, hematuria or urinary frequency Musculoskeletal Musculoskeletal: Denies arthralgias or myalgias Integumentary Reports other Details: See HPI ; Denies abscess or rash Neurologic Neurologic: Reports weakness; Denies headache(s) Psychiatric Psychiatric: Denies anxiety, depression, suicidal ideation or suicidal thoughts Endocrine Endocrinology: Denies polydipsia, polyphagia or polyuria Allergic/Immunologic Allergic/Immunologic ED: Denies mouth swelling, tongue swelling or urticaria EXAM Physical Exam Const Vital Signs: 10/24/20 15:30 10/24/20 15:42 10/24/20 16:55 Temperature 97.5 F L Temperature Source Oral Pulse Rate 82 Respiratory Rate 16 Respiratory Effort Short of Breath Blood Pressure 102/58 L 114/63 Blood Pressure Mean 72 80 Pulse Ox 93 Oxygen Delivery Method Nasal Cannula Oxygen Flow Rate (L/min) 2 Positive well nourished, well developed and obese General Appearance ED: well developed Nutritional Appearance: obese HEENT Reports normocephalic, head/scalp atraumatic and moist mucous membranes Eyes PERRL and EOMs intact bilaterally Neck no lymphadenopathy, supple and no JVD Resp normal respiratory effort and clear to auscultation bilaterally Cardio regular rate, regular rhythm and no murmurs GI normal to inspection, nondistended, normoactive bowel sounds and non-tender Palpation: soft Narrative: There is extensive buttock perineal scrotal and inguinal skin breakdown. There is thick exudate present. There is some evidence of candidal infection. Back/Spine no CVA tenderness and normal ROM Extremity Extremity Narrative: There is a large right lower leg ulceration without evidence of infection. General Extremety ED: Yes edema General Extremity: edema Neuro oriented x3 and CN's II-XII intact bilaterally Sensorium / Orientation: alert Motor Exam: strength 5/5 throughout Psych mental status grossly normal Mood & Affect: Negative for depressed or tearful MDM MDM MDM Narrative Medical decision making narrative: White count mildly elevated 12.4. Hemoglobin 9.3 which is chronic for him. Platelets three sixty-four. Creatinine elevated off baseline at 2.25 with a BUN of fifty-three. Slight elevation of his transaminases. Lactic acid normal. Troponin 12.9. At this point patient received vancomycin and Zosyn. Blood cultures were obtained. I do not think that this is Julio's. There is no significant foul smell there is a slight exudate to the wounds. I spoke with Dr. Aragon for plastic surgery as well as Dr. Villanueva for the hospitalist group. Plan is admission Lab Data Attestation: I reviewed the patient's lab results. Labs: Laboratory Results - last 24 hr 10/24/20 10/24/20 10/24/20 16:25 16:25 16:25 WBC 12.4 H RBC 3.52 L Hgb 9.3 L Hct 30.9 L MCV 87.8 MCH 26.4 L MCHC 30.1 L RDW Std Deviation 48.8 H RDW Coeff of Johanna 15.2 H Plt Count 364 MPV 8.9 Immature Gran % (Auto) 0.800 Neut % (Auto) 83.1 H Lymph % (Auto) 5.0 L [place] % (Auto) 9.7 Eos % (Auto) 1.2 Baso % (Auto) 0.2 Absolute Neuts (auto) 10.3 H Absolute Lymphs (auto) 0.62 L Nucleated RBC % 0 PT 15.3 H INR 1.3 APTT 45.0 H Sodium 131 L Potassium 4.6 Chloride 94 L Carbon Dioxide 30.0 Anion Gap 7 BUN 53 H Creatinine 2.25 H Estim Creat Clear Calc 32.30 Est GFR (MDRD) Af Amer 38 L Est GFR (MDRD) Non-Af 31 L BUN/Creatinine Ratio 23.6 H Glucose 137 H Lactic Acid Calcium 9.4 Total Bilirubin 0.50 AST 51 H ALT 65 H Alkaline Phosphatase 81 Troponin I High Sens 12.9 B-Natriuretic Peptide Total Protein 7.7 Albumin 2.3 L Globulin 5.4 H Albumin/Globulin Ratio 0.4 L 10/24/20 10/24/20 16:25 16:25 WBC RBC Hgb Hct MCV MCH MCHC RDW Std Deviation RDW Coeff of Johanna Plt Count MPV Immature Gran % (Auto) Neut % (Auto) Lymph % (Auto) [place] % (Auto) Eos % (Auto) Baso % (Auto) Absolute Neuts (auto) Absolute Lymphs (auto) Nucleated RBC % PT INR APTT Sodium Potassium Chloride Carbon Dioxide Anion Gap BUN Creatinine Estim Creat Clear Calc Est GFR (MDRD) Af Amer Est GFR (MDRD) Non-Af BUN/Creatinine Ratio Glucose Lactic Acid 1.9 Calcium Total Bilirubin AST ALT Alkaline Phosphatase Troponin I High Sens B-Natriuretic Peptide 36.9 Total Protein Albumin Globulin Albumin/Globulin Ratio Radiography Diagnostic Testing: Radiology Impression Chest X-Ray 10/24/20 16:40 IMPRESSION: Possible early infiltrate or atelectasis in the left lung base. Electronically Signed: Tan Verma MD ([place]) at 16:56 EDT , Service support , EKG Initial EKG: Attestation: I personally reviewed and interpreted this EKG as follows: Comments: Sinus rhythm ventricular rate 87 Discharge Plan Dx/Rx/DC Orders Clinical Impression: Scrotal ulcer, Inguinal ulcer, Open wound of perineum, Bilateral leg weakness, Adult failure to thrive, Physical deconditioning, Type 2 diabetes mellitus, Ulcer of right lower extremity, Morbid obesity, HASMUKH (acute kidney injury) Disposition Disposition: Acute Care Hospital [facility]
[2020-10-24] MEDS: Lidocaine Jelly 2% 20 ML Syringe (URO-JET) 20 APPLIC TOPICAL (16:27)
--- NOTE | 2020-10-24 16:40 | RAD_ITS ---
STUDY: X-RAY CHEST REASON FOR EXAM: Male, 65 years old. COPD TECHNIQUE: AP COMPARISON: 11/14/2018 chest x-ray, 11/08/2018 CTA FINDINGS: There is opacity at the left lung base with ill-defined diaphragm border. There is no demonstrated pleural abnormality. Normal size heart. Normal mediastinum and ekta. Normal visualized pulmonary arteries. Severe tortuosity of the thoracic aorta with dilation of the aortic arch/descending thoracic aorta, overall similar since CTA. Normal visualized thoracic spine. Degenerative changes of the left shoulder. There is no demonstrated abnormality of the visualized soft tissue structures of the upper abdomen. RAD/Chest 1 View (Portable) IMPRESSION: Possible early infiltrate or atelectasis in the left lung base. Electronically Signed: Tan Verma MD ([place]) at 16:56 EDT , Service support ,
[2020-10-24 16:41] LABS: Absolute Lymphocyte Count 0.62 X10^3/uL (0.83-4.51); Absolute Neutrophil Count 10.3 X10^3/uL (2.0-7.7); Basophil# 0.02 X10^3/uL; Basophil% 0.2 % (0-1); Eosinophil# 0.15 X10^3/uL; Eosinophils% 1.2 % (0-5); Hematocrit 30.9 % (40-54); Hemoglobin 9.3 g/dL (13.0-16.5); Lymphocyte # 0.62 X10^3/ul (0.83-4.51); Mean Corp Hgb Conc 30.1 g/dL (32-36); Mean Corpuscular Hgb 26.4 pg (27.0-32.0); Mean Corpuscular Volume 87.8 fL (80-94); Mean Platelet Vol. 8.9 fl (6.2-12.0); Monocyte% 9.7 % (0-10); NRBC Flagged by Analyzer 0 % (0-5); Neutrophil # 10.26 X10^3/uL (2.7-7.7); Neutrophil % 83.1 % (47-70); Platelet Count 364 K/mm3 (150-450); RBC Distribution Width CV 15.2 % (11.6-14.6); RBC Distribution Width SD 48.8 fl (35.1-43.9); Red Blood Count 3.52 M/mm3 (4.6-6.2); White Blood Count 12.4 K/mm3 (4.4-11.0)
[2020-10-24 16:53] LABS: International Normalized Ratio 1.3; Prothrombin Time (Protime)PT. 15.3 SECONDS (11.7-14.9)
[2020-10-24 16:55] VITALS: BP 114/63
[2020-10-24 16:59] LABS: ALB/GLOB Ratio 0.4 RATIO (0.9-2.4); AST(SGOT) 51 U/L (15-37); Alanine Aminotransfer ALT/SGPT 65 U/L (16-61); Albumin, Serum 2.3 g/dL (3.2-5.0); Alkaline Phosphatase 81 U/L (45-117); Anion Gap 7 (5-15); BUN 53 mg/dL (7-18); BUN/Creat Ratio 23.6 RATIO (10-20); Calcium,Total 9.4 mg/dL (8.5-10.1); Chloride 94 mmol/L (98-107); Creatinine, Serum 2.25 mg/dL (0.70-1.30); EST Glomerular Filtration Rate 31 mL/min (>60); Est Glom Filt Rate - Afr Amer 38 mL/min (>60); Globulin 5.4 g/dL (2.2-4.2); Glucose 137 mg/dL (74-106); Potassium 4.6 mmol/L (3.5-5.1); Protein, Total 7.7 g/dL (6.4-8.2); Sodium Level 131 mmol/L (136-145); Troponin-I HS 12.9 pg/mL (3.0-78.5)
[2020-10-24 17:25] LABS: Lactic Acid 1.9 mmol/L (0.4-1.9)
[2020-10-24 17:26] LABS: BNP,B-Type NATRIURETIC PEPTIDE 36.9 pg/mL (0-100)
[2020-10-24] MEDS: Morphine 4 MG/ML Syringe IV ×2 (17:26→18:43)
--- NOTE | 2020-10-24 17:41 | HP.PCM.HOS_ITS ---
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 He recently underwent carpal tunnel syndrome and subsequently developed progressive weakness following anesthesia. Per patient he did develop allergic reaction to the anesthetic agent with angioedema. He has since experienced progressive weakness in his overall condition. He has hardly been able to ambulate. He has a chronic right distal leg wound which has since gotten worse. Patient also reports excoriation involving his perineal region mainly in the scrotum. Presented to the emergency department due to progressive decline in his overall condition. Patient was found to have worsening kidney function as well. [facility] Medical History Acute respiratory failure with hypoxia and hypercapnia Anemia Arthritis aspiration of left knee Bilateral pulmonary infiltrates on CXR BPH (benign prostatic hyperplasia) Bradycardia Cardiology follow-up encounter Chronic cutaneous venous stasis ulcer Chronic diastolic (congestive) heart failure Chronic kidney disease, stage 3 Chronic venous insufficiency Chronic venous stasis dermatitis COPD (chronic obstructive pulmonary disease) Debility Diabetes Disability of walking Essential (primary) hypertension Former smoker Generalized weakness GERD (gastroesophageal reflux disease) Glaucoma 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 History of CHF (congestive heart failure) History of edema History of GI bleed History of renal disease History of ulceration Hx of cataract Hyperlipidemia Hypertension Kidney stones Lip swelling Low testosterone in male Lower extremity weakness Morbid obesity Normocytic anemia Obesity ADELAIDE (obstructive sleep apnea) Osteoarthritis Pressure ulcer Secondary pulmonary arterial hypertension Shortness of breath Shortness of breath on exertion Sleep apnea Stage 2 moderate COPD by GOLD classification Thoracic aortic aneurysm without rupture Tobacco use Type 2 diabetes mellitus Ulcer of right lower extremity Wears glasses Home Medications brimonidine 0.2 % eye drops 1 drp OPHTHALMIC BID ml 05/04/18 [History Last Taken Unknown] dorzolamide 2 %-timolol 0.5 % (PF) eye drops 1 drp OPHTHALMIC BID 05/04/18 [History Last Taken Unknown] omeprazole 20 mg capsule,delayed release 20 mg PO DAILY 05/04/18 [History Last Taken Unknown] tamsulosin 0.4 mg capsule 0.4 mg PO DAILY 05/30/18 [History Last Taken Unknown] latanoprost 0.005 % eye drops 1 drp OPHTHALMIC QPM 09/06/18 [History Last Taken Unknown] acetaminophen 650 mg PO Q6H PRN PRN tab 11/15/18 [Rx Last Taken Unknown] albuterol sulfate 2.5 mg INHALATION Q2H PRN PRN vial.neb. 11/15/18 [Rx Last Taken Unknown] fluticasone propionate 2 spray NASAL BID PRN nasal.sry 11/15/18 [Rx Last Taken Unknown] ipratropium-albuterol 3 ml INHALATION Q6HWA.RT 11/15/18 [History Last Taken Unknown] oxygen MISCELLANEOUS 12/06/18 [History Last Taken Unknown] cholecalciferol (vitamin D3) 1,250 mcg (50,000 unit) tablet 50,000 unit PO QWEEK #10 tab 02/04/19 [Rx Last Taken Unknown] tramadol 50 mg tablet 50 mg PO .QID tab 02/04/19 [History Last Taken Unknown] hydralazine 50 mg tablet 50 mg PO TID tab 08/28/19 [History Last Taken Unknown] labetalol 200 mg tablet 200 mg PO TID tab 08/28/19 [History Last Taken Unknown] sildenafil 100 mg tablet 100 mg PO DAILY PRN tab 08/28/19 [History Last Taken Unknown] losartan 100 mg tablet 100 mg PO DAILY #90 tab 03/04/20 [Rx Last Taken Unknown] testosterone cypionate 100 mg/mL intramuscular oil 50 mg IM Q2W #5 ml 03/23/20 [Rx Last Taken Unknown] mometasone-formoterol HFA 100 mcg-5 mcg/actuation aerosol inhaler 2 puff INHALATION Q12H #13 g 06/01/20 [Rx Last Taken Unknown] tiotropium bromide 2.5 mcg/actuation mist for inhalation 2 puff INHALATION DAILY #4 g 06/01/20 [Rx Last Taken Unknown] Lift Chair #1 ea 07/03/20 [Rx Last Taken Unknown] gabapentin 10 % topical cream in packet 1 applic TOPICAL BID #30 gm 07/03/20 [Rx Last Taken Unknown] furosemide 40 mg tablet 40 mg PO BID #180 tab 08/07/20 [Rx Last Taken Unknown] diclofenac sodium [Voltaren] 75 mg PO BID PRN 09/08/20 [History Last Taken Unknown] triamcinolone acetonide [Triderm] 1 applic TOPICAL PRN PRN 09/08/20 [History Last Taken Unknown] sitagliptin 100 mg tablet 100 mg PO DAILY #90 tab 09/30/20 [Rx Last Taken Unknown] Allergy/AdvReac Type Severity Reaction Status Date / Time lisinopril Allergy Severe Angioedema Verified 10/24/20 15:56 Sulfa (Sulfonamide AdvReac Other Verified 10/24/20 15:56 Antibiotics) chapstick Allergy swelling Uncoded 10/24/20 15:56 Family History Father Cancer Mother Asthma Surgical History History of cataract extraction Social History Smoking Status: Former smoker second hand exposure: No alcohol intake: current alcohol intake frequency: a few times a week substance use type: does not use caffeine: No what type of physical activity do you participate in: none ROS ROS Narrative GENERAL: denies fever, chills, night sweats, HEENT: denies headache, sinus congestion, RESPIRATORY: denies cough, sputum production, CARDIAC: denies chest pain, palpitations, GASTROINTESTINAL: denies abdominal pain, GENITOURINARY: denies dysuria, urgency, EXTREMITY: denies swelling MUSCULOSKELETAL: denies current joint pain or tenderness NEUROLOGIC: Bilateral lower extremity weakness HEMATOLOGIC: denies easy bruising and/or hemorrhage INTEGUMENT: Area of excoriation in the perineum PSYCHIATRIC: denies suicidal or homicidal ideation Vital Signs Vital Signs Vital Signs: 10/24/20 15:30 10/24/20 15:42 10/24/20 16:55 Temperature 97.5 F L Temperature Source Oral Pulse Rate 82 Respiratory Rate 16 Respiratory Effort Short of Breath Blood Pressure 102/58 L 114/63 Blood Pressure Mean 72 80 Pulse Ox 93 Oxygen Delivery Method Nasal Cannula Oxygen Flow Rate (L/min) 2 Weight Weight: 122.9 kg Body Mass Index (BMI) 40.0 Physical Exam Narrative GENERAL: cooperative HEENT: Atraumatic; EYES; Anicteric, Normal Conjunctiva NECK; supple, normal thyroid, RESPIRATORY: Diminished to auscultation CARDIOVASCULAR: Regular S1 S2, GI: soft, normoactive bowel sounds, : Area of excoriation involving the scrotal region and perineum EXTREMITIES: Ulceration involving the distal half of the right lower extremity MUSCULOSKELETAL: no muscle waisting NEURO: Awake; no lateralizing signs. SKIN: No Rash PSYCH; Flat affect Results Lab / Micro Data Result Diagrams: 10/24/20 16:25 10/24/20 16:25 Labs: Laboratory Results - last 24 hr 10/24/20 16:25: WBC 12.4 H, RBC 3.52 L, Hgb 9.3 L, Hct 30.9 L, MCV 87.8, MCH 26.4 L, MCHC 30.1 L, RDW Std Deviation 48.8 H, RDW Coeff of Johanna 15.2 H, Plt Count 364, MPV 8.9, Immature Gran % (Auto) 0.800, Neut % (Auto) 83.1 H, Lymph % (Auto) 5.0 L, [place] % (Auto) 9.7, Eos % (Auto) 1.2, Baso % (Auto) 0.2, Absolute Neuts (auto) 10.3 H, Absolute Lymphs (auto) 0.62 L, Nucleated RBC % 0 10/24/20 16:25: PT 15.3 H, INR 1.3, APTT 45.0 H 10/24/20 16:25: Sodium 131 L, Potassium 4.6, Chloride 94 L, Carbon Dioxide 30.0, Anion Gap 7, BUN 53 H, Creatinine 2.25 H, Estim Creat Clear Calc 32.30, Est GFR (MDRD) Af Amer 38 L, Est GFR (MDRD) Non-Af 31 L, BUN/Creatinine Ratio 23.6 H, Glucose 137 H, Calcium 9.4, Total Bilirubin 0.50, AST 51 H, ALT 65 H, Alkaline Phosphatase 81, Troponin I High Sens 12.9, Total Protein 7.7, Albumin 2.3 L, Globulin 5.4 H, Albumin/Globulin Ratio 0.4 L 10/24/20 16:25: Lactic Acid 1.9 10/24/20 16:25: B-Natriuretic Peptide 36.9 Radiology Impression Chest X-Ray 10/24/20 16:40 IMPRESSION: Possible early infiltrate or atelectasis in the left lung base. Electronically Signed: Tan Verma MD ([place]) at 16:56 EDT , Service support , Assessment & Plan Assessment/Plan (1) Scrotal ulcer: (2) Inguinal ulcer: (3) Open wound of perineum: (4) Bilateral leg weakness: (5) Adult failure to thrive: (6) Physical deconditioning: (7) HASMUKH (acute kidney injury): (8) Type 2 diabetes mellitus: (9) ADELAIDE (obstructive sleep apnea): (10) GERD (gastroesophageal reflux disease): (11) Chronic kidney disease, stage 3: (12) Morbid obesity: (13) Chronic diastolic (congestive) heart failure: (14) Essential (primary) hypertension: (15) Hyperlipidemia: QUALIFIERS: Hyperlipidemia type: unspecified Qualified Code(s): E78.5 - Hyperlipidemia, unspecified PLAN: Patient is a 65-year-old gentleman presented with progressive generalized weakness 1. Progressive bilateral lower extremity weakness Admitted to a monitored bed, ordered MRI of the lumbosacral spine for subsequent evaluation. 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 We will also obtain neurological consultation via telemedicine 2. Ulceration involving the perineum ?Patient started on empiric antibiotic therapy for now consult placed to both vascular surgery as well as wound care nurse 3. Right lower extremity skin ulceration ?On empiric antibiotic therapy as stated above consult placed wound care nurse 4. Acute kidney injury ?Superimposed on chronic kidney disease stage III patient is on IV fluids with subsequent monitoring of electrolytes 5. Diabetes mellitus type II -With complications including diabetic nephropathy patient's oral hypoglycemics held. Placed on long acting insulin, Accu-Cheks a.c. and at bedtime and covered with sliding scale insulin 6. Chronic kidney disease stage IIIb ?Secondary to diabetic nephropathy patient presented with impaired kidney function management as discussed above 7. Hypertension - Blood pressure controlled, home medications continued with dose adjustment as needed 8. Right upper extremity carpal tunnel syndrome ?Status post recent surgery 9. Obstructive sleep apnea ?Patient is on CPAP at night., Plan is to continue with home settings 10. COPD ?Discontinue patient aerosol treatment 11. DVT prophylaxis ?SC heparin Charges/Coding Visit Charges Inpatient E&M: 37641 Init Hosp L3
[2020-10-24 17:52] VITALS: BP 97/68; PULSE 76; RESP 16; TEMP 36.8; O2SAT 98
[2020-10-24 19:08] VITALS: BMI 38.9
--- NOTE | 2020-10-24 19:43 | TELEMED_ITS ---
[facility] Tele[facility] has confirmed receipt of a request for visit. This document confirms receipt of the order initiating the consult. To find the results of the consultation, please view the patient's reports for the scanned Telemed Consult.
[2020-10-24 20:03] VITALS: PULSE 94; RESP 18; O2SAT 97
[2020-10-24] MEDS: Ipratropium/Albuterol Sulfate 3 ML AMPUL.NEB INHALATION (20:03)
[2020-10-24] MEDS: Budesonide Respules 0.5 MG/2 ML AMPUL.NEB. INHALATION (20:03)
--- NOTE | 2020-10-24 20:17 | PCM.RX.CS ---
Consult Pharmacy has been consulted to manage selected antiobiotic: Vancomycin Type of Consult: New start Suspected Infection: Skin/Soft tissue Labs: Sodium 131 mmol/L (136-145) L 10/24/20 16:25 Potassium 4.6 mmol/L (3.5-5.1) 10/24/20 16:25 Chloride 94 mmol/L (98-107) L 10/24/20 16:25 Carbon Dioxide 30.0 mmol/L (21.0-32.0) 10/24/20 16:25 Anion Gap 7 (5-15) 10/24/20 16:25 BUN 53 mg/dL (7-18) H 10/24/20 16:25 Creatinine 2.25 mg/dL (0.70-1.30) H 10/24/20 16:25 Est GFR (MDRD) Af Amer 38 mL/min (>60) L 10/24/20 16:25 Est GFR (MDRD) Non-Af 31 mL/min (>60) L 10/24/20 16:25 BUN/Creatinine Ratio 23.6 RATIO (10-20) H 10/24/20 16:25 Glucose 137 mg/dL (74-106) H 10/24/20 16:25 Weight used for dosin.4 kg Estimated Creatinine Clearance: 41.2 Goal Trough: 15-20 mcg/mL Pharmacy Plan for Drug Dosing: Pharmacy Service will continue to monitor and adjust dosing as required. Medications Vancomycin HCl (Vancomycin) 1,000 mg in 200 mls @ 200 mls/hr IV Q12H AMBROSE Discontinued Medications Vancomycin HCl 2,000 mg/ (Sodium Chloride) 540 mls @ 250 mls/hr IV X1 ONE Stop: 10/24/20 19:10 Last Admin: 10/24/20 17:51 Dose: 250 mls/hr Documented by: Follow-Up Labs: Trough Vancomycin Labs to be done on [date and time ordered]: 10/26 @ 1356
[2020-10-24] MEDS: 0.9% Normal Saline 1,000 ML 150 ML IV (20:33)
[2020-10-24] MEDS: Dorzolamide HCL/Timolol 10 ml Bottle 1 DRP OPHTHALMIC (20:40)
[2020-10-24] MEDS: Heparin Injection (Vial) 5,000 UNIT/ML VIAL 5000 UNIT SC (20:40)
[2020-10-24] MEDS: BRIMONIDINE 0.2% 5ML BOTTLE 1 DRP OPHTHALMIC (20:41)
[2020-10-24] MEDS: Latanoprost 0.005% 1 Bottle 1 DRP OPHTHALMIC (20:41)
[2020-10-24] MEDS: HYDROmorphone 1 MG/ML Syringe IV (21:28)
[2020-10-24 21:30] VITALS: BP 132/76; PULSE 97; RESP 18; TEMP 37; O2SAT 100
[2020-10-24 21:38] VITALS: BP 132/76; PULSE 97
[2020-10-24] MEDS: hydrALAZINE 50 MG Tablet PO (21:38)
[2020-10-24] MEDS: Labetalol 200 MG Tablet PO (21:38)
[2020-10-24 21:41] LABS: Probe Check PASS; Staph aureus DNA By PCR POSITIVE (Negative)
[2020-10-24 21:44] LABS: M R Staph aureus DNA By PCR POSITIVE (Negative)
[2020-10-24 23:06] LABS: Bedside Glucose 145 mg/dL (70-110)
[2020-10-24] MEDS: oxyCODONE 5 MG Tablet PO (23:10)
[2020-10-24] MEDS: 0.9% Saline Lock 10 ML Syringe IV (23:10)
[2020-10-25] VITALS (18 sets, daily range): BP systolic 89–124; BP diastolic 42–68; PULSE 83–127; RESP 11–24; TEMP 36.6–37.7; O2SAT 95–100
[2020-10-25] MEDS: hydrOXYzine PAM 25 MG Capsule PO ×2 (00:32→07:22)
[2020-10-25 01:15] LABS: Mucous, Urine 0 SEEN /hpf (<or=2+); Red Blood Cells-Urine 0 SEEN /hpf (0-5); Squamous Epithelial Cells - UA 0 SEEN /hpf (0-5)
[2020-10-25 01:17] LABS: Color, Urine Yellow (Yellow); Glucose, Dipstick Normal (Normal); Ketone-Dipstick Negative (Negative); Leukocyte Esterase-Dipstick 500 /ul (Negative); Nitrite-Dipstick Positive (Negative); Occult Blood-Urine 150 /ul (Negative); Protein-Dipstick 100 mg/dl (Negative); Urine Bilirubin Dipstick Negative (Negative); Urine Clarity Sl. Cloudy (Clear); Urine Urobilinogen Normal (Normal)
[2020-10-25 02:03] LABS: Bacteria 3+ /hpf (None Seen); Renal Epithelial Cells 0-5 SEEN /hpf (0-5); White Blood Cells >100 SEEN /hpf (0-5)
[2020-10-25] MEDS: HYDROmorphone 1 MG/ML Syringe IV ×3 (04:01→22:53)
[2020-10-25] MEDS: 0.9% Normal Saline 1,000 ML 150 ML IV ×3 (04:08→22:35)
[2020-10-25] MEDS: Vancomycin IV 1,000 MG/200 ML BAG 200 MG IV ×2 (05:24→17:40)
[2020-10-25] MEDS: Heparin Injection (Vial) 5,000 UNIT/ML VIAL 5000 UNIT SC ×3 (05:29→22:43)
[2020-10-25 06:46] LABS: Bedside Glucose 128 mg/dL (70-110)
[2020-10-25 06:58] LABS: Absolute Lymphocyte Count 0.99 X10^3/uL (0.83-4.51); Absolute Neutrophil Count 8.7 X10^3/uL (2.0-7.7); Basophil# 0.02 X10^3/uL; Basophil% 0.2 % (0-1); Eosinophil# 0.15 X10^3/uL; Eosinophils% 1.3 % (0-5); Hematocrit 28.2 % (40-54); Hemoglobin 8.5 g/dL (13.0-16.5); Lymphocyte # 0.99 X10^3/ul (0.83-4.51); Lymphocyte % 8.8 % (19-41); Mean Corp Hgb Conc 30.1 g/dL (32-36); Mean Corpuscular Hgb 26.3 pg (27.0-32.0); Mean Corpuscular Volume 87.3 fL (80-94); Mean Platelet Vol. 9.2 fl (6.2-12.0); Monocyte# 1.33 X10^3/uL; Monocyte% 11.8 % (0-10); NRBC Flagged by Analyzer 0 % (0-5); Neutrophil # 8.73 X10^3/uL (2.7-7.7); Neutrophil % 77.1 % (47-70); Platelet Count 376 K/mm3 (150-450); RBC Distribution Width CV 15.4 % (11.6-14.6); RBC Distribution Width SD 49.4 fl (35.1-43.9); Red Blood Count 3.23 M/mm3 (4.6-6.2); White Blood Count 11.3 K/mm3 (4.4-11.0)
[2020-10-25 07:06] LABS: Anion Gap 8 (5-15); BUN 42 mg/dL (7-18); BUN/Creat Ratio 24.3 RATIO (10-20); Calcium,Total 8.8 mg/dL (8.5-10.1); Chloride 98 mmol/L (98-107); Creatinine, Serum 1.73 mg/dL (0.70-1.30); EST Glomerular Filtration Rate 42 mL/min (>60); Est Glom Filt Rate - Afr Amer 51 mL/min (>60); Glucose 99 mg/dL (74-106); Magnesium 1.6 mg/dL (1.6-2.6); Potassium 4.4 mmol/L (3.5-5.1); Prealbumin 8.8 mg/dL (20.0-40.0); Sodium Level 133 mmol/L (136-145)
--- NOTE | 2020-10-25 07:22 | PN.HOSP_ITS ---
Subjective Subjective Patient is a 65-year-old gentleman presented with progressive generalized weakness. Admitted to regular nursing floor for subsequent management Objective Data Objective Data Vital Signs: Vital Signs Temp Pulse Resp BP Pulse Ox 98.9 F 95 18 118/65 100 10/25/20 05:30 10/25/20 05:35 10/25/20 05:30 10/25/20 05:35 10/25/20 05:30 Oxygen Flow Rate (L/min) 2 Oxygen Delivery Method CPAP Weight: 119.431 kg Body Mass Index (BMI) 38.9 Intake & Output: Intake and Output for Last 24 Hours 10/23/20 10/24/20 10/25/20 23:59 23:59 23:59 Intake Total 590 / 590 1455 / 1455 Output Total 475 / 475 Balance 590 / 340 980 / 980 Lab / Micro Data Result Diagrams: 10/25/20 05:35 10/25/20 05:35 Labs: Laboratory Results - last 24 hr 10/24/20 16:25: WBC 12.4 H, RBC 3.52 L, Hgb 9.3 L, Hct 30.9 L, MCV 87.8, MCH 26.4 L, MCHC 30.1 L, RDW Std Deviation 48.8 H, RDW Coeff of Johanna 15.2 H, Plt Count 364, MPV 8.9, Immature Gran % (Auto) 0.800, Neut % (Auto) 83.1 H, Lymph % (Auto) 5.0 L, [place] % (Auto) 9.7, Eos % (Auto) 1.2, Baso % (Auto) 0.2, Absolute Neuts (auto) 10.3 H, Absolute Lymphs (auto) 0.62 L, Nucleated RBC % 0 10/24/20 16:25: PT 15.3 H, INR 1.3, APTT 45.0 H 10/24/20 16:25: Sodium 131 L, Potassium 4.6, Chloride 94 L, Carbon Dioxide 30.0, Anion Gap 7, BUN 53 H, Creatinine 2.25 H, Estim Creat Clear Calc 32.30, Est GFR (MDRD) Af Amer 38 L, Est GFR (MDRD) Non-Af 31 L, BUN/Creatinine Ratio 23.6 H, Glucose 137 H, Calcium 9.4, Total Bilirubin 0.50, AST 51 H, ALT 65 H, Alkaline Phosphatase 81, Troponin I High Sens 12.9, Total Protein 7.7, Albumin 2.3 L, Globulin 5.4 H, Albumin/Globulin Ratio 0.4 L 10/24/20 16:25: Lactic Acid 1.9 10/24/20 16:25: B-Natriuretic Peptide 36.9 10/24/20 20:20: S.aureus Protein A PCR POSITIVE H, MRSA (PCR) POSITIVE H 10/24/20 21:46: POC Glucose 145 H 10/25/20 01:05: Urine Color Yellow, Urine Clarity Sl. Cloudy, Urine pH 7.0, Ur Specific [place] 1.010, Urine Protein 100 H, Urine Glucose (UA) Normal, Urine Ketones Negative, Urine Occult Blood 150 H, Urine Nitrite Positive H, Urine Bilirubin Negative, Urine Urobilinogen Normal, Ur Leukocyte Esterase 500 H, Urine RBC 0 SEEN, Urine WBC >100 SEEN, Ur Squamous Epith Cells 0 SEEN, Ur Renal Epithelial Cell 0-5 SEEN, Urine Bacteria 3+, Urine Mucus 0 SEEN 10/25/20 05:35: WBC 11.3 H, RBC 3.23 L, Hgb 8.5 L, Hct 28.2 L, MCV 87.3, MCH 26.3 L, MCHC 30.1 L, RDW Std Deviation 49.4 H, RDW Coeff of Johanna 15.4 H, Plt Count 376, MPV 9.2, Immature Gran % (Auto) 0.800, Neut % (Auto) 77.1 H, Lymph % (Auto) 8.8 L, [place] % (Auto) 11.8 H, Eos % (Auto) 1.3, Baso % (Auto) 0.2, Absolute Neuts (auto) 8.7 H, Absolute Lymphs (auto) 0.99, Nucleated RBC % 0 10/25/20 05:35: Sodium 133 L, Potassium 4.4, Chloride 98, Carbon Dioxide 27.0, Anion Gap 8, BUN 42 H, Creatinine 1.73 H, Estim Creat Clear Calc 42.00, Est GFR (MDRD) Af Amer 51 L, Est GFR (MDRD) Non-Af 42 L, BUN/Creatinine Ratio 24.3 H, Glucose 99, Calcium 8.8, Magnesium 1.6, C-React Prot Ext Range 185.00 H, Prealbumin 8.8 L 10/25/20 06:21: POC Glucose 128 H Radiography Diagnostic Testing: Radiology Impression Chest X-Ray 10/24/20 16:40 IMPRESSION: Possible early infiltrate or atelectasis in the left lung base. Electronically Signed: Tan Verma MD ([place]) at 16:56 EDT , Service support , Physical Exam Narrative GENERAL: cooperative HEENT: Atraumatic; EYES; Anicteric, Normal Conjunctiva NECK; supple, normal thyroid, RESPIRATORY: Diminished to auscultation CARDIOVASCULAR: Regular S1 S2, GI: soft, normoactive bowel sounds, : Area of excoriation involving the scrotal region and perineum EXTREMITIES: Ulceration involving the distal half of the right lower extremity MUSCULOSKELETAL: no muscle waisting NEURO: Awake; no lateralizing signs. SKIN: No Rash PSYCH; Flat affect Assessment & Plan Assessment/Plan (1) Scrotal ulcer: (2) Inguinal ulcer: (3) Open wound of perineum: (4) Bilateral leg weakness: (5) Adult failure to thrive: (6) Physical deconditioning: (7) HASMUKH (acute kidney injury): (8) Type 2 diabetes mellitus: (9) ADELAIDE (obstructive sleep apnea): (10) GERD (gastroesophageal reflux disease): (11) Chronic kidney disease, stage 3: (12) Morbid obesity: (13) Chronic diastolic (congestive) heart failure: (14) Essential (primary) hypertension: (15) Hyperlipidemia: QUALIFIERS: Hyperlipidemia type: unspecified Qualified Code(s): E78.5 - Hyperlipidemia, unspecified PLAN: Patient is a 65-year-old gentleman presented with progressive generalized weakness 1. Progressive bilateral lower extremity weakness Admitted to a monitored bed, ordered MRI of the lumbosacral spine for subsequent evaluation. 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 We will also obtain neurological consultation via telemedicine -10/25/2020. Patient was evaluated by telemedicine notes and recommendations reviewed. He has an appointment with a neurologist in 2 weeks time as outpatient plan is for patient to keep current appointment 2. Ulceration involving the perineum ?Patient started on empiric antibiotic therapy for now consult placed to both vascular surgery as well as wound care nurse ?10/25/2020 initiated nystatin powder for suspected cutaneous candidiasis 3. Right lower extremity skin ulceration ?On empiric antibiotic therapy as stated above consult placed wound care nurse 4. Acute kidney injury ?Superimposed on chronic kidney disease stage III patient is on IV fluids with subsequent monitoring of electrolytes ?10/25/2020; kidney function did improve with creatinine going down from 2.25 to 1.73 with hydration 5. Diabetes mellitus type II -With complications including diabetic nephropathy patient's oral hypoglycemics held. Placed on long acting insulin, Accu-Cheks a.c. and at bedtime and covered with sliding scale insulin 6. Chronic kidney disease stage IIIb ?Secondary to diabetic nephropathy patient presented with impaired kidney function management as discussed above 7. Hypertension - Blood pressure controlled, home medications continued with dose adjustment as needed 8. Right upper extremity carpal tunnel syndrome ?Status post recent surgery 9. Obstructive sleep apnea ?Patient is on CPAP at night., Plan is to continue with home settings 10. COPD ?Discontinue patient aerosol treatment 11. DVT prophylaxis ?SC heparin Charges/Coding Visit Charges Inpatient E&M: 98277 Subs Hosp L2
[2020-10-25] MEDS: Budesonide Respules 0.5 MG/2 ML AMPUL.NEB. INHALATION ×2 (07:25→19:36)
[2020-10-25] MEDS: Ipratropium/Albuterol Sulfate 3 ML AMPUL.NEB INHALATION ×2 (07:25→19:36)
[2020-10-25 08:19] LABS: Hemoglobin A1c 6.9 % (3.8-5.6)
[2020-10-25] MEDS: Pantoprazole Sodium 20 MG Tablet PO (09:55)
[2020-10-25] MEDS: Glucerna Shake 120 ML LIQUID PO (09:57)
[2020-10-25] MEDS: BRIMONIDINE 0.2% 5ML BOTTLE 1 DRP OPHTHALMIC ×2 (09:57→22:40)
[2020-10-25] MEDS: Dorzolamide HCL/Timolol 10 ml Bottle 1 DRP OPHTHALMIC ×2 (09:58→22:40)
[2020-10-25] MEDS: Tamsulosin HCl 0.4 MG Capsule PO (09:58)
[2020-10-25] MEDS: oxyCODONE 5 MG Tablet PO ×2 (10:06→17:39)
[2020-10-25] MEDS: Acetaminophen 325 MG Tablet 650 MG PO ×2 (10:57→17:40)
[2020-10-25] MEDS: Menthol/Lanolin/Calamine/Znox 113 GM Tube 1 APPLIC TOPICAL ×4 (11:19→22:25)
[2020-10-25] MEDS: Nystatin Powder 15gm Bottle 1 APPLIC TOPICAL ×3 (11:19→22:41)
[2020-10-25] MEDS: hydrOXYzine PAM 25 MG Capsule 50 MG PO ×4 (11:26→22:46)
[2020-10-25 11:36] LABS: Bedside Glucose 121 mg/dL (70-110)
[2020-10-25] MEDS: 0.9% Saline Lock 10 ML Syringe IV ×2 (11:53→14:14)
--- NOTE | 2020-10-25 12:10 | MRI_ITS ---
STUDY: MRI LUMBAR SPINE WITHOUT CONTRAST REASON FOR EXAM: Male, 65 years old. Bilateral lower extremity weakness,unable to walk x 5 weeks, hx guillain-barre 2003 TECHNIQUE: Standardized fat and water weighted pulse sequences were obtained in the sagittal and axial planes. COMPARISON: None FINDINGS: T12-L1: Normal endplates. Normal disc height, hydration and morphology. Normal bilateral facet joints. Normal central canal and bilateral lateral recesses. Normal bilateral intervertebral neural foramina. Normal lumbar lordosis. There is no substantial scoliosis. Normal conus medullaris that terminates at the T12/L1. L1-2: Mild bilateral facet hypertrophy and severe ligament flavum hypertrophy. Mild bilobed disc protrusion produces mild spinal stenosis and mild bilateral neural foraminal stenosis. L2-3: Moderate bilateral facet hypertrophy and severe ligament flavum hypertrophy. Moderate bilobed disc protrusion produces moderate spinal stenosis with moderate bilateral lateral recess stenosis with abutment of the L3 nerve roots bilaterally and moderate bilateral neural foraminal stenosis with abutment of the exiting L2 nerve roots bilaterally. L3-4: Moderate bilateral facet hypertrophy and severe ligament flavum hypertrophy. Large broad disc protrusion produces severe spinal stenosis with moderate bilateral lateral recess stenosis with abutment of the L4 nerve roots bilaterally and moderate bilateral neural foraminal stenosis with abutment of the L3 nerve roots bilaterally. L4-5: Moderate bilateral facet hypertrophy and severe ligament flavum hypertrophy. Large broad disc protrusion produces severe spinal stenosis with moderate bilateral lateral recess stenosis with abutment of the L5 nerve roots bilaterally and moderate bilateral neural foraminal stenosis with abutment of the L4 nerve root laterally. L5-S1: Mild bilateral facet hypertrophy and ligament flavum hypertrophy. Mild broad disc protrusion produces mild spinal stenosis with mild bilateral neural foraminal stenosis. Normal visualized sacral ala. Moderate friction related edema of the posterior subcutaneous fat. Ectatic abdominal aorta with a maximal diameter 3.0 cm with ectasia of the common iliac arteries. MRI/Spine Lumbar (Routine) IMPRESSION: Multilevel degenerative changes, as described above. Electronically Signed: Jerry Betancur MD at 13:15 EDT Tel , Service support ,
--- NOTE | 2020-10-25 15:55 | CON.PCM_ITS ---
Assessment & Plan Assessment/Plan (1) Ulcer of right medial lower extremity with fat layer exposed: (2) Non-healing ulcer of multiple sites, limited to breakdown of skin: (3) Excoriation of multiple sites: (4) MRSA (methicillin resistant Staphylococcus aureus) infection: (5) Pseudomonas aeruginosa infection: (6) Chronic venous insufficiency: (7) Type 2 diabetes mellitus: (8) Morbid obesity: (9) Skin ulcer of right lower leg with fat layer exposed: (10) Diabetes mellitus with ulcer of ankle: (11) Diabetes mellitus with ulcer of lower extremity: PLAN: Patient has extensive excoriations/superficial ulcers scrotum, shaft of penis, perineum, bilateral inguinal areas, and bilateral perianal areas. This is secondary to pressure from being immobile and from moisture and sweat from the multiple skin folds in the area. There is no surgical urgency yet in this area. However, with his history of diabetes mellitus, there is the risk of developing a rapidly necrotizing process. Will watch this area very closely. Any worsening areas that are seen will need operative intervention with excisional debridement of the necrotizing soft tissue infection. In the meantime, will treat these areas of excoriation as a burn and start Silvadene twice a day. Before applying it again, wash the ulcers and remove the old Silvadene. If extensive surgery is needed in this area, the resultant wounds will be large. Healing will be prolonged. There is a good chance of stool contamination due to the proximity of the ulcers to the anal opening, and he would benefit from a diverting colostomy. Postoperative wound care would be with Dakin's dressing changes daily. Once the wounds show good granulation tissue and are more superficial, can proceed with delayed closure with skin grafting. Patient is aware of the possibility and voices understanding. Also with the large size of the wounds in the scrotum, penile shaft, perineum, bilateral inguinal areas and bilateral perianal areas, postoperative wound care can be challenging. It is labor intensive and sometimes it is hard to get control of his pain. In this situation, he would be better treated with transfer to a Burn Unit where they give much higher doses of Morphine and also utilize other modalities like whirlpool which would help to keep these ex coriations/superficial ulcers clean which would minimize potential necrotizing soft tissue infections. His other issue is the nonhealing ulcer right leg and medial ankle. He had been going to the [facility] until about 2 years ago. They stopped going to the Wound Center because it had been improving. Recent wound culture showed Pseudomonas aeroginosa and MRSA. He is currently on Vancomycin and Zosyn. The ulcer is tender to palpation and has some granulation tissue and extensive exudate and indurated surrounding scar tissue. Patient needs a surgical preparation of his right leg with incision and drainage and excisional debridement nonhealing painful MRSA ulcer right leg and medial ankle. Will schedule this procedure this week under general anesthesia. Tissue that is removed will be sent to Pathology for analysis to rule out carcinoma and to Microbiology for culture. A positive culture will necessitate antibiotic therapy. The resultant wound will be quite large and postoperative wound care will be with the VAC. Ulcers on this part of the lower extremity take a very long time to heal. I tell patients it will take at least 6 months or longer to heal. In the meantime, if good granulation tissue forms, can proceed sooner with delayed closure with skin grafting. For this right leg ulcer that has a venous component, will check noninvasive arterial doppler studies to look for vascular stenosis that could be contributing to the chronic nonhealing nature of this ulcer. Patient was informed of the risks and complications of the procedure including alternatives to surgery. These were discussed with the patient personally. Patient voices understanding and wishes to proceed. We discussed the current risks associated with COVID-19. While it is understood that there is a community spread of COVID-19, the risk of amber COVID-19 while at [facility] ([facility]) is very low; however, the risk cannot be completely mitigated because of the community spread of the disease. We discussed in detail the risk of exposure to and/or potential harm posed by the COVID-19 virus with having a surgery/procedure at this time versus the risk of delaying the surgery/procedure. It is not possible to know either the risk of delaying the surgery or procedure or chance of getting an infection with perfect accuracy, but a joint decision was made to proceed at this time with the scheduled surgery/procedure as indicated on the consent form. Patient was notified that we will need to comply with any screening or testing [facility] wishes to perform or that surgery may be delayed for any positive results. HPI Consult Data Date of Consult: 10/25/20 PCP / Referring MD: MD Dr. Alton Hunter MD Attending Care Provider: Dr. Alton Villanueva MD HPI Narrative HPI Narrative: REASON FOR CONSULTATION Nonhealing painful ulcer right leg and medial ankle and extensive excoriations/superficial ulcers scrotum, penile shaft, perineum, bilateral inguinal areas and bilateral perianal areas. HISTORY OF PRESENT ILLNESS PRECIOUS CHI, is a 65 M who presents with worsening excoriations/superficial ulcers in his scrotum, penile shaft, perineum, bilateral inguinal areas and bilateral perianal areas. Back in July, the patient had a small superficial ulcer in his perineum that was responding to wound care and healing satisfactory until he had a right carpal tunnel surgery in 09/30. Since that surgery he developed progressive weakness following anesthesia. 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 He developed some recovery and was using a walker. He has hardly been able to ambulate since the carpal tunnel surgery which has worsened these areas of excoriations/superficial ulcers. He also has a long standing nonhealing ulcer right leg and medial ankle. The family has been doing the dressing changes at home. There has been increasing pain in the right leg. Wound culture was done which showed Gram negative rods possible Pseudomonas and Gram positive organism. The MRSA Wound DNA by PCR was positive for MRSA. He is currently on Vancomycin and Zosyn. I was asked to evaluate this patient for surgical options for treatment. [facility] Medical History (Updated 10/27/20 @ 13:[address] Juanjose Aragon MD) Acute respiratory failure with hypoxia and hypercapnia Anemia Arthritis aspiration of left knee Bilateral pulmonary infiltrates on CXR BPH (benign prostatic hyperplasia) Bradycardia Cardiology follow-up encounter Chronic cutaneous venous stasis ulcer Chronic diastolic (congestive) heart failure Chronic kidney disease, stage 3 Chronic venous insufficiency Chronic venous stasis dermatitis COPD (chronic obstructive pulmonary disease) Debility Diabetes Disability of walking Essential (primary) hypertension Excoriation of multiple sites (~07/2020) Former smoker Generalized weakness GERD (gastroesophageal reflux disease) Glaucoma 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 History of CHF (congestive heart failure) History of edema History of GI bleed History of renal disease History of ulceration Hx of cataract Hyperlipidemia Hypertension Kidney stones Lip swelling Low testosterone in male Lower extremity weakness Morbid obesity MRSA (methicillin resistant Staphylococcus aureus) infection Non-healing ulcer of multiple sites, limited to breakdown of skin Normocytic anemia Obesity ADELAIDE (obstructive sleep apnea) Osteoarthritis Pressure ulcer Pseudomonas aeruginosa infection Secondary pulmonary arterial hypertension Shortness of breath Shortness of breath on exertion Sleep apnea Stage 2 moderate COPD by GOLD classification Thoracic aortic aneurysm without rupture Tobacco use Type 2 diabetes mellitus Ulcer of right lower extremity Wears glasses Home Medications brimonidine 0.2 % eye drops 1 drp OPHTHALMIC BID ml 05/04/18 [History Last Taken Unknown] dorzolamide 2 %-timolol 0.5 % (PF) eye drops 1 drp OPHTHALMIC BID 05/04/18 [History Last Taken Unknown] omeprazole 20 mg capsule,delayed release 20 mg PO DAILY 05/04/18 [History Last Taken Unknown] tamsulosin 0.4 mg capsule 0.4 mg PO DAILY 05/30/18 [History Last Taken Unknown] latanoprost 0.005 % eye drops 1 drp OPHTHALMIC QPM 09/06/18 [History Last Taken Unknown] acetaminophen 650 mg PO Q6H PRN PRN tab 11/15/18 [Rx Last Taken Unknown] albuterol sulfate 2.5 mg INHALATION Q2H PRN PRN vial.neb. 11/15/18 [Rx Last Taken Unknown] fluticasone propionate 2 spray NASAL BID PRN nasal.sry 11/15/18 [Rx Last Taken Unknown] ipratropium-albuterol 3 ml INHALATION Q6HWA.RT 11/15/18 [History Last Taken Unknown] oxygen MISCELLANEOUS 12/06/18 [History Last Taken Unknown] cholecalciferol (vitamin D3) 1,250 mcg (50,000 unit) tablet 50,000 unit PO QWEEK #10 tab 02/04/19 [Rx Last Taken Unknown] tramadol 50 mg tablet 50 mg PO .QID tab 02/04/19 [History Last Taken Unknown] hydralazine 50 mg tablet 50 mg PO TID tab 08/28/19 [History Last Taken Unknown] labetalol 200 mg tablet 200 mg PO TID tab 08/28/19 [History Last Taken Unknown] sildenafil 100 mg tablet 100 mg PO DAILY PRN tab 08/28/19 [History Last Taken Unknown] losartan 100 mg tablet 100 mg PO DAILY #90 tab 03/04/20 [Rx Last Taken Unknown] testosterone cypionate 100 mg/mL intramuscular oil 50 mg IM Q2W #5 ml 03/23/20 [Rx Last Taken Unknown] mometasone-formoterol HFA 100 mcg-5 mcg/actuation aerosol inhaler 2 puff INHALATION Q12H #13 g 06/01/20 [Rx Last Taken Unknown] tiotropium bromide 2.5 mcg/actuation mist for inhalation 2 puff INHALATION DAILY #4 g 06/01/20 [Rx Last Taken Unknown] Lift Chair #1 ea 07/03/20 [Rx Last Taken Unknown] gabapentin 10 % topical cream in packet 1 applic TOPICAL BID #30 gm 07/03/20 [Rx Last Taken Unknown] furosemide 40 mg tablet 40 mg PO BID #180 tab 08/07/20 [Rx Last Taken Unknown] diclofenac sodium [Voltaren] 75 mg PO BID PRN 09/08/20 [History Last Taken Unknown] triamcinolone acetonide [Triderm] 1 applic TOPICAL PRN PRN 09/08/20 [History Last Taken Unknown] sitagliptin 100 mg tablet 100 mg PO DAILY #90 tab 09/30/20 [Rx Last Taken Unknown] Allergy/AdvReac Type Severity Reaction Status Date / Time lisinopril Allergy Severe Angioedema Verified 10/24/20 15:56 Sulfa (Sulfonamide AdvReac Other Verified 10/24/20 15:56 Antibiotics) chapstick Allergy swelling Uncoded 10/24/20 15:56 Family History Father Cancer Mother Asthma Surgical History History of cataract extraction Social History Smoking Status: Former smoker second hand exposure: No alcohol intake: current alcohol intake frequency: a few times a week substance use type: does not use caffeine: No what type of physical activity do you participate in: none ROS ROS Narrative GENERAL: denies fever, chills, night sweats, HEENT: denies headache, sinus congestion, RESPIRATORY: denies cough, sputum production, CARDIAC: denies chest pain, palpitations, GASTROINTESTINAL: denies abdominal pain, GENITOURINARY: denies dysuria, urgency, EXTREMITY: denies swelling MUSCULOSKELETAL: denies current joint pain or tenderness NEUROLOGIC: Bilateral lower extremity weakness HEMATOLOGIC: denies easy bruising and/or hemorrhage INTEGUMENT: Area of excoriation in the perineum PSYCHIATRIC: denies suicidal or homicidal ideation Physical Exam Narrative GENERAL: cooperative HEENT: PERRL. EOMI. Throat is clear. NECK; supple, nontender. No cervical adenopathy. RESPIRATORY: Diminished to auscultation CARDIOVASCULAR: Regular rate and rhythm. GI: soft, nondistended. : Extensive areas of excoriations/superficial ulcers scrotum, shaft of penis, perineum, bilateral inguinal areas and bilateral perianal areas. EXTREMITIES: Large nonhealing ulcer right leg involving medial and lateral aspects. Ulcer extends into the medial ankle. Some granulation tissue present. Extensive exudate present. Tender to palpation. Pulses are decreased. MUSCULOSKELETAL: Has weakness lower extremities. NEURO: Cranial nerves II-XII grossly intact. PSYCH; Normal affect. Medical Records Data Medical Nutrition Assessment Dietitian: Nutrition Therapy Diagnosis Start: 10/25/20 13:27 Freq: Status: Active Protocol: Document 10/25/20 13:41 (Rec: 10/25/20 13:41 [id number]) Nutrition Malnutrition Evidence of Malnutrition Exists No Intake Problem Inadequate Oral Intake Etiology r/t decreased appetite d/t mouth and generalized pain Signs/Symptoms as evidenced by estimated PO intake meeting <50% of estimated nutritional needs x 4 weeks, unintentional wt loss of 11.7#/4.25% x 4 weeks Status Active Problem Recommendation Dietitian Recommendations/Changes Continue 1999 calorie controlled, consistent carbohydrate diet. Glucerna 120mL TID- will leave on MAR and d/c from diet order as these are duplicate orders. Increase Glucerna to 4x/day if PO intake at meals does not improve. Lab / Micro Data Attestation: I reviewed the patient's lab results. Result Diagrams: 10/27/20 07:40 10/27/20 07:40 Labs: Laboratory Results - last 24 hr 10/24/20 16:25: WBC 12.4 H, RBC 3.52 L, Hgb 9.3 L, Hct 30.9 L, MCV 87.8, MCH 26.4 L, MCHC 30.1 L, RDW Std Deviation 48.8 H, RDW Coeff of Johanna 15.2 H, Plt Count 364, MPV 8.9, Immature Gran % (Auto) 0.800, Neut % (Auto) 83.1 H, Lymph % (Auto) 5.0 L, [place] % (Auto) 9.7, Eos % (Auto) 1.2, Baso % (Auto) 0.2, Absolute Neuts (auto) 10.3 H, Absolute Lymphs (auto) 0.62 L, Nucleated RBC % 0 10/24/20 16:25: PT 15.3 H, INR 1.3, APTT 45.0 H 10/24/20 16:25: Sodium 131 L, Potassium 4.6, Chloride 94 L, Carbon Dioxide 30.0, Anion Gap 7, BUN 53 H, Creatinine 2.25 H, Estim Creat Clear Calc 32.30, Est GFR (MDRD) Af Amer 38 L, Est GFR (MDRD) Non-Af 31 L, BUN/Creatinine Ratio 23.6 H, Glucose 137 H, Calcium 9.4, Total Bilirubin 0.50, AST 51 H, ALT 65 H, Alkaline Phosphatase 81, Troponin I High Sens 12.9, Total Protein 7.7, Albumin 2.3 L, Globulin 5.4 H, Albumin/Globulin Ratio 0.4 L 10/24/20 16:25: Lactic Acid 1.9 10/24/20 16:25: B-Natriuretic Peptide 36.9 10/24/20 20:20: S.aureus Protein A PCR POSITIVE H, MRSA (PCR) POSITIVE H 10/24/20 21:46: POC Glucose 145 H 10/25/20 01:05: Urine Color Yellow, Urine Clarity Sl. Cloudy, Urine pH 7.0, Ur Specific [employer] 1.010, Urine Protein 100 H, Urine Glucose (UA) Normal, Urine Ketones Negative, Urine Occult Blood 150 H, Urine Nitrite Positive H, Urine Bilirubin Negative, Urine Urobilinogen Normal, Ur Leukocyte Esterase 500 H, Urine RBC 0 SEEN, Urine WBC >100 SEEN, Ur Squamous Epith Cells 0 SEEN, Ur Renal Epithelial Cell 0-5 SEEN, Urine Bacteria 3+, Urine Mucus 0 SEEN 10/25/20 05:35: Hemoglobin A1c 6.9 H 10/25/20 05:35: WBC 11.3 H, RBC 3.23 L, Hgb 8.5 L, Hct 28.2 L, MCV 87.3, MCH 26.3 L, MCHC 30.1 L, RDW Std Deviation 49.4 H, RDW Coeff of Johanna 15.4 H, Plt Count 376, MPV 9.2, Immature Gran % (Auto) 0.800, Neut % (Auto) 77.1 H, Lymph % (Auto) 8.8 L, [place] % (Auto) 11.8 H, Eos % (Auto) 1.3, Baso % (Auto) 0.2, Absolute Neuts (auto) 8.7 H, Absolute Lymphs (auto) 0.99, Nucleated RBC % 0 10/25/20 05:35: Sodium 133 L, Potassium 4.4, Chloride 98, Carbon Dioxide 27.0, Anion Gap 8, BUN 42 H, Creatinine 1.73 H, Estim Creat Clear Calc 42.00, Est GFR (MDRD) Af Amer 51 L, Est GFR (MDRD) Non-Af 42 L, BUN/Creatinine Ratio 24.3 H, Glucose 99, Calcium 8.8, Magnesium 1.6, C-React Prot Ext Range 185.00 H, Prealbumin 8.8 L 10/25/20 06:21: POC Glucose 128 H 10/25/20 11:18: POC Glucose 121 H Micro: Microbiology 10/24/20 20:20 Wound - Leg, Right Gram Stain - Final 10/24/20 20:20 Wound - Leg, Right Wound Culture - Preliminary GNR Poss Pseudomonas sp Gram positive organism Radiology Impression Chest X-Ray 10/24/20 16:40 IMPRESSION: Possible early infiltrate or atelectasis in the left lung base. Electronically Signed: Tan Verma MD ([place]) at 16:56 EDT , Service support , Lumbar Spine MRI 10/25/20 12:10 IMPRESSION: Multilevel degenerative changes, as described above. Electronically Signed: Jerry Betancur MD at 13:15 EDT Tel , Service support , Procedure Criteria Type of Procedure Procedure Type: Elective Elective Risks - COVID COVID Risk Discussion: The surgeon/proceduralist and patient have discussed in detail the risk of exposure to and/or potential harm posed by the COVID-19 virus with having a surgery/procedure at this time versus the risk of delaying the surgery/procedure. It is not possible to know either the risk of delaying the surgery or procedure or chance of getting an infection with perfect accuracy, but a joint decision was made between the patient and the surgeon/proceduralist to proceed at this time with the scheduled surgery/procedure as indicated on the consent form. Charges/Coding Visit Charges Inpatient E&M: 66334 Init Hosp L2 (ICD-10 - L97.912, E11.622, T07.xxxA, L98.491, A49.02, A49.8, I87.2, E11.9, E66.01)
[2020-10-25 17:01] LABS: Bedside Glucose 130 mg/dL (70-110)
--- NOTE | 2020-10-25 21:41 | CPS ---
Pt.'s home CPAP unit is set-up in room; 2L bleed-in
[2020-10-25] MEDS: Latanoprost 0.005% 1 Bottle 1 DRP OPHTHALMIC (22:06)
[2020-10-25] MEDS: Silver Sulfadiazine 1% Crm 50 gm Bottle 1 APPLIC TOPICAL (22:23)
[2020-10-25] MEDS: Mupirocin Ointment 22gm Tube 1 APPLIC TOPICAL (22:24)
[2020-10-25 23:36] LABS: Bedside Glucose 133 mg/dL (70-110)
[2020-10-26] VITALS (8 sets, daily range): BP systolic 103–128; BP diastolic 48–60; PULSE 80–120; RESP 16–24; TEMP 36.9–37.9; O2SAT 93–100
[2020-10-26] MEDS: oxyCODONE 5 MG Tablet PO ×3 (01:00→21:16)
[2020-10-26] MEDS: Acetaminophen 325 MG Tablet 650 MG PO ×3 (01:00→21:16)
[2020-10-26] MEDS: HYDROmorphone 1 MG/ML Syringe IV ×4 (05:13→22:08)
[2020-10-26] MEDS: Vancomycin IV 1,000 MG/200 ML BAG 200 MG IV ×2 (05:22→17:40)
[2020-10-26] MEDS: Heparin Injection (Vial) 5,000 UNIT/ML VIAL 5000 UNIT SC ×3 (05:25→21:10)
[2020-10-26 06:24] LABS: Absolute Lymphocyte Count 1.34 X10^3/uL (0.83-4.51); Absolute Neutrophil Count 6.9 X10^3/uL (2.0-7.7); Basophil# 0.03 X10^3/uL; Basophil% 0.3 % (0-1); Eosinophil# 0.39 X10^3/uL; Eosinophils% 3.8 % (0-5); Hematocrit 26.6 % (40-54); Hemoglobin 7.9 g/dL (13.0-16.5); Lymphocyte # 1.34 X10^3/ul (0.83-4.51); Mean Corp Hgb Conc 29.7 g/dL (32-36); Mean Corpuscular Hgb 26.4 pg (27.0-32.0); Mean Platelet Vol. 9.1 fl (6.2-12.0); Monocyte# 1.53 X10^3/uL; Monocyte% 14.9 % (0-10); NRBC Flagged by Analyzer 0 % (0-5); Neutrophil # 6.89 X10^3/uL (2.7-7.7); Neutrophil % 66.9 % (47-70); POSITIVE DIFFERENTIAL YES; Platelet Count 333 K/mm3 (150-450); RBC Distribution Width CV 15.8 % (11.6-14.6); RBC Distribution Width SD 51.2 fl (35.1-43.9); Red Blood Count 2.99 M/mm3 (4.6-6.2); White Blood Count 10.3 K/mm3 (4.4-11.0)
[2020-10-26 06:45] LABS: Anion Gap 3 (5-15); BUN 30 mg/dL (7-18); BUN/Creat Ratio 23.1 RATIO (10-20); Calcium,Total 8.5 mg/dL (8.5-10.1); Chloride 105 mmol/L (98-107); EST Glomerular Filtration Rate 59 mL/min (>60); Est Glom Filt Rate - Afr Amer 71 mL/min (>60); Glucose 105 mg/dL (74-106); Sodium Level 136 mmol/L (136-145)
[2020-10-26] MEDS: 0.9% Normal Saline 1,000 ML 150 ML IV (06:46)
[2020-10-26 06:51] LABS: Bedside Glucose 145 mg/dL (70-110)
[2020-10-26 06:52] LABS: Differential Indicated SCAN CRITERIA MET
[2020-10-26] MEDS: Budesonide Respules 0.5 MG/2 ML AMPUL.NEB. INHALATION (07:02)
[2020-10-26] MEDS: Ipratropium/Albuterol Sulfate 3 ML AMPUL.NEB INHALATION ×2 (07:02→12:52)
[2020-10-26 07:13] LABS: Target Cells 2+
[2020-10-26 07:42] LABS: Vancomycin, Trough Level 34.1 ug/mL (5.0-15.0)
[2020-10-26] MEDS: hydrOXYzine PAM 25 MG Capsule 50 MG PO ×4 (09:42→21:16)
[2020-10-26] MEDS: BRIMONIDINE 0.2% 5ML BOTTLE 1 DRP OPHTHALMIC ×2 (09:43→21:05)
[2020-10-26] MEDS: Menthol/Lanolin/Calamine/Znox 113 GM Tube 1 APPLIC TOPICAL ×4 (09:43→21:09)
[2020-10-26] MEDS: Pantoprazole Sodium 20 MG Tablet PO (09:43)
[2020-10-26] MEDS: Tamsulosin HCl 0.4 MG Capsule PO (09:43)
[2020-10-26] MEDS: Silver Sulfadiazine 1% Crm 50 gm Bottle 1 APPLIC TOPICAL ×2 (09:43→21:11)
[2020-10-26] MEDS: Dorzolamide HCL/Timolol 10 ml Bottle 1 DRP OPHTHALMIC ×2 (09:44→21:04)
--- NOTE | 2020-10-26 09:58 | NURSING ---
wound photo: benigno rectal/buttocks
--- NOTE | 2020-10-26 09:59 | NURSING ---
wound photo: right lower leg (medial view)
--- NOTE | 2020-10-26 09:59 | NURSING ---
wound photo: right lower leg (lateral view)
--- NOTE | 2020-10-26 11:40 | PCM.PN.HOSP ---
Subjective Subjective Patient was seen and examined. Denied any new complaints. Denies any fever or chills. Objective Data Objective Data Vital Signs: Vital Signs Temp Pulse Resp BP Pulse Ox 98.5 F 106 H 16 103/48 L 93 10/26/20 10:02 10/26/20 10:02 10/26/20 10:02 10/26/20 10:02 10/26/20 10:02 Oxygen Flow Rate (L/min) 2 Oxygen Delivery Method Room Air Weight: 119.431 kg Body Mass Index (BMI) 38.9 Intake & Output: Intake and Output for Last 24 Hours 10/24/20 10/25/20 10/26/20 23:59 23:59 23:59 Intake Total 590 / 590 3550 / 3650 1400 / 1400 Output Total 1125 / 1875 1350 / 1350 Balance 590 / 340 2425 / 1775 50 / 50 Medical Nutrition Assessment Dietitian: Malnutrition Criteria Met Start: 10/25/20 13:27 Freq: Status: Active Protocol: Document 10/25/20 13:41 AG (Rec: 10/25/20 13:41 AG [id number]) Nutrition Malnutrition Evidence of Malnutrition Exists No Intake Problem Inadequate Oral Intake Etiology r/t decreased appetite d/t mouth and generalized pain Signs/Symptoms as evidenced by estimated PO intake meeting <50% of estimated nutritional needs x 4 weeks, unintentional wt loss of 11.7#/4.25% x 4 weeks Status Active Problem Recommendation Dietitian Recommendations/Changes Continue 1999 calorie controlled, consistent carbohydrate diet. Glucerna 120mL TID- will leave on MAR and d/c from diet order as these are duplicate orders. Increase Glucerna to 4x/day if PO intake at meals does not improve. Lab / Micro Data Result Diagrams: 10/26/20 05:30 10/26/20 05:30 Labs: Laboratory Results - last 24 hr 10/25/20 16:22: POC Glucose 130 H 10/25/20 22:52: POC Glucose 133 H 10/26/20 05:30: Sodium 136, Potassium 4.0, Chloride 105, Carbon Dioxide 28.0, Anion Gap 3 L, BUN 30 H, Creatinine 1.30, Estim Creat Clear Calc 55.90, Est GFR (MDRD) Af Amer 71, Est GFR (MDRD) Non-Af 59 L, BUN/Creatinine Ratio 23.1 H, Glucose 105, Calcium 8.5 10/26/20 05:30: WBC 10.3, RBC 2.99 L, Hgb 7.9 L, Hct 26.6 L, MCV 89.0, MCH 26.4 L, MCHC 29.7 L, RDW Std Deviation 51.2 H, RDW Coeff of Johanna 15.8 H, Plt Count 333, MPV 9.1, Immature Gran % (Auto) 1.100 H, Neut % (Auto) 66.9, Lymph % (Auto) 13.0 L, [place] % (Auto) 14.9 H, Eos % (Auto) 3.8, Baso % (Auto) 0.3, Absolute Neuts (auto) 6.9, Absolute Lymphs (auto) 1.34, Nucleated RBC % 0, Target Cells 2+ 10/26/20 05:30: Vancomycin Trough 34.1 H 10/26/20 06:45: POC Glucose 145 H Micro: Microbiology 10/24/20 20:20 Wound - Leg, Right Gram Stain - Final 10/24/20 20:20 Wound - Leg, Right Wound Culture - Preliminary GNR Poss Pseudomonas sp Gram positive smiley 10/24/20 20:20 Wound - Leg, Right Anaerobic Culture - Preliminary No anaerobic bacteria isolated. Radiography Diagnostic Testing: Radiology Impression Lumbar Spine MRI 10/25/20 12:10 IMPRESSION: Multilevel degenerative changes, as described above. Electronically Signed: Jerry Betancur MD at 13:15 EDT Tel , Service support , Physical Exam Narrative GENERAL: Alert oriented x3, obese, not pale, not jaundiced HEENT: Atraumatic; EYES; Anicteric, Normal Conjunctiva NECK; supple, normal thyroid, RESPIRATORY: Diminished CARDIOVASCULAR: Regular S1 S2, GI: soft, normoactive bowel sounds, : Area of excoriation involving the scrotal region and perineum EXTREMITIES: Ulceration involving the distal half of the right lower extremity MUSCULOSKELETAL: no muscle waisting NEURO: Diminished sensation from the L2 dermatome downwards Assessment & Plan Assessment/Plan (1) Scrotal ulcer: (2) Inguinal ulcer: (3) Open wound of perineum: (4) Bilateral leg weakness: (5) Adult failure to thrive: (6) Physical deconditioning: (7) HASMUKH (acute kidney injury): (8) Type 2 diabetes mellitus: (9) ADELAIDE (obstructive sleep apnea): (10) GERD (gastroesophageal reflux disease): (11) Chronic kidney disease, stage 3: (12) Morbid obesity: (13) Chronic diastolic (congestive) heart failure: (14) Essential (primary) hypertension: (15) Hyperlipidemia: QUALIFIERS: Hyperlipidemia type: unspecified Qualified Code(s): E78.5 - Hyperlipidemia, unspecified PLAN: 1. Acute progressive bilateral lower extremity weakness History of previous Guillain-Dewitt? syndrome MRI of the lumbar spine shows degenerative changes Discussed with family; patient is agreeable to transfer for in-person neurology evaluation PT/OT to evaluate and treat 2. Ulceration involving the perineum and right lower extremity laceration Wound cultures growing possible Pseudomonas Continue on IV vancomycin and Zosyn, ID following 3. Acute kidney injury, superimposed on CKD stage IIIb, resolved 4. Diabetes mellitus type II, complicated by neuropathy and nephropathy, Blood sugars are fairly controlled, continue on Lantus with insulin sliding scale 5. Rest of his chronic medical conditions are stable Meds reviewed Charges/Coding Visit Charges Inpatient E&M: 75450 Subs Hosp L2
[2020-10-26] MEDS: 0.9% Saline Lock 10 ML Syringe IV (13:29)
[2020-10-26] MEDS: Nystatin Powder 15gm Bottle 1 APPLIC TOPICAL ×2 (13:35→21:10)
[2020-10-26 13:50] LABS: Bedside Glucose 103 mg/dL (70-110)
--- NOTE | 2020-10-26 15:07 | CON.PCM.ID_ITS ---
Assessment & Plan Assessment/Plan (1) Pseudomonas aeruginosa infection: (2) MRSA (methicillin resistant Staphylococcus aureus) infection: PLAN: Scrotal and RLE infected wounds. Seen by Dr. Aragon. Has completed covid vaccine. HASMUKH improved. On vanc/zosyn. Will follow, thank you HPI Consult Data Date of Consult: 10/26/20 HPI Narrative HPI Narrative: PRECIOUS CHI, is a 65 M with Guillain Mobile, had recent R carpal tunnel surgery complicated by worsening weakness and swelling. Has had worsening ulceration and significant pain in scrotum/perineum and R lower leg. H/o MRSA infection. Some chills. He and family have gotten covid vaccine. Came to ED, admitted on vanc/zosyn, feeling a little better. Full ROS performed and neg except as noted above. [facility] Medical History Acute respiratory failure with hypoxia and hypercapnia Anemia Arthritis aspiration of left knee Bilateral pulmonary infiltrates on CXR BPH (benign prostatic hyperplasia) Bradycardia Cardiology follow-up encounter Chronic cutaneous venous stasis ulcer Chronic diastolic (congestive) heart failure Chronic kidney disease, stage 3 Chronic venous insufficiency Chronic venous stasis dermatitis COPD (chronic obstructive pulmonary disease) Debility Diabetes Disability of walking Essential (primary) hypertension Excoriation of multiple sites (~07/2020) Former smoker Generalized weakness GERD (gastroesophageal reflux disease) Glaucoma 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 History of CHF (congestive heart failure) History of edema History of GI bleed History of renal disease History of ulceration Hx of cataract Hyperlipidemia Hypertension Kidney stones Lip swelling Low testosterone in male Lower extremity weakness Morbid obesity MRSA (methicillin resistant Staphylococcus aureus) infection Non-healing ulcer of multiple sites, limited to breakdown of skin Normocytic anemia Obesity ADELAIDE (obstructive sleep apnea) Osteoarthritis Pressure ulcer Pseudomonas aeruginosa infection Secondary pulmonary arterial hypertension Shortness of breath Shortness of breath on exertion Sleep apnea Stage 2 moderate COPD by GOLD classification Thoracic aortic aneurysm without rupture Tobacco use Type 2 diabetes mellitus Ulcer of right lower extremity Ulcer of right medial lower extremity with fat layer exposed Wears glasses Home Medications brimonidine 0.2 % eye drops 1 drp OPHTHALMIC BID ml 05/04/18 [History Last Taken Unknown] dorzolamide 2 %-timolol 0.5 % (PF) eye drops 1 drp OPHTHALMIC BID 05/04/18 [History Last Taken Unknown] omeprazole 20 mg capsule,delayed release 20 mg PO DAILY 05/04/18 [History Last Taken Unknown] tamsulosin 0.4 mg capsule 0.4 mg PO DAILY 05/30/18 [History Last Taken Unknown] latanoprost 0.005 % eye drops 1 drp OPHTHALMIC QPM 09/06/18 [History Last Taken Unknown] acetaminophen 650 mg PO Q6H PRN PRN tab 11/15/18 [Rx Last Taken Unknown] albuterol sulfate 2.5 mg INHALATION Q2H PRN PRN vial.neb. 11/15/18 [Rx Last T aken Unknown] fluticasone propionate 2 spray NASAL BID PRN nasal.sry 11/15/18 [Rx Last Taken Unknown] ipratropium-albuterol 3 ml INHALATION Q6HWA.RT 11/15/18 [History Last Taken Unknown] oxygen MISCELLANEOUS 12/06/18 [History Last Taken Unknown] cholecalciferol (vitamin D3) 1,250 mcg (50,000 unit) tablet 50,000 unit PO QWEEK #10 tab 02/04/19 [Rx Last Taken Unknown] tramadol 50 mg tablet 50 mg PO .QID tab 02/04/19 [History Last Taken Unknown] hydralazine 50 mg tablet 50 mg PO TID tab 08/28/19 [History Last Taken Unknown] labetalol 200 mg tablet 200 mg PO TID tab 08/28/19 [History Last Taken Unknown] sildenafil 100 mg tablet 100 mg PO DAILY PRN tab 08/28/19 [History Last Taken Unknown] losartan 100 mg tablet 100 mg PO DAILY #90 tab 03/04/20 [Rx Last Taken Unknown] testosterone cypionate 100 mg/mL intramuscular oil 50 mg IM Q2W #5 ml 03/23/20 [Rx Last Taken Unknown] mometasone-formoterol HFA 100 mcg-5 mcg/actuation aerosol inhaler 2 puff INHALATION Q12H #13 g 06/01/20 [Rx Last Taken Unknown] tiotropium bromide 2.5 mcg/actuation mist for inhalation 2 puff INHALATION DAILY #4 g 06/01/20 [Rx Last Taken Unknown] Lift Chair #1 ea 07/03/20 [Rx Last Taken Unknown] gabapentin 10 % topical cream in packet 1 applic TOPICAL BID #30 gm 07/03/20 [Rx Last Taken Unknown] furosemide 40 mg tablet 40 mg PO BID #180 tab 08/07/20 [Rx Last Taken Unknown] diclofenac sodium [Voltaren] 75 mg PO BID PRN 09/08/20 [History Last Taken Unknown] triamcinolone acetonide [Triderm] 1 applic TOPICAL PRN PRN 09/08/20 [History Last Taken Unknown] sitagliptin 100 mg tablet 100 mg PO DAILY #90 tab 09/30/20 [Rx Last Taken Unknown] Allergy/AdvReac Type Severity Reaction Status Date / Time lisinopril Allergy Severe Angioedema Verified 10/24/20 15:56 Sulfa (Sulfonamide AdvReac Other Verified 10/24/20 15:56 Antibiotics) chapstick Allergy swelling Uncoded 10/24/20 15:56 Family History Father Cancer Mother Asthma Surgical History History of cataract extraction Social History Smoking Status: Former smoker second hand exposure: No alcohol intake: current alcohol intake frequency: a few times a week substance use type: does not use caffeine: No what type of physical activity do you participate in: none Physical Exam Const alert and oriented x3 General Appearance: cooperative HEENT normocephalic and head/scalp atraumatic Eyes PERRL and EOMs intact bilaterally Neck supple and No nodes Resp clear to auscultation bilaterally Cardio regular rate and regular rhythm GI normal to inspection, nondistended, normoactive bowel sounds Extremity General Extremity: edema Skin Skin Narrative: reviewed wound photos Neuro CN's II-XII intact bilaterally Medical Records Data Medical Nutrition Assessment Dietitian: Malnutrition Criteria Met Start: 10/25/20 13:27 Freq: Status: Active Protocol: Document 10/25/20 13:41 AG (Rec: 10/25/20 13:41 [id number]) Nutrition Malnutrition Evidence of Malnutrition Exists No Intake Problem Inadequate Oral Intake Etiology r/t decreased appetite d/t mouth and generalized pain Signs/Symptoms as evidenced by estimated PO intake meeting <50% of estimated nutritional needs x 4 weeks, unintentional wt loss of 11.7#/4.25% x 4 weeks Status Active Problem Recommendation Dietitian Recommendations/Changes Continue 1999 calorie controlled, consistent carbohydrate diet. Glucerna 120mL TID- will leave on MAR and d/c from diet order as these are duplicate orders. Increase Glucerna to 4x/day if PO intake at meals does not improve. Lab / Micro Data Result Diagrams: 10/26/20 05:30 10/26/20 05:30 Labs: Laboratory Results - last 24 hr 10/25/20 16:22: POC Glucose 130 H 10/25/20 22:52: POC Glucose 133 H 10/26/20 05:30: Sodium 136, Potassium 4.0, Chloride 105, Carbon Dioxide 28.0, Anion Gap 3 L, BUN 30 H, Creatinine 1.30, Estim Creat Clear Calc 55.90, Est GFR (MDRD) Af Amer 71, Est GFR (MDRD) Non-Af 59 L, BUN/Creatinine Ratio 23.1 H, Glucose 105, Calcium 8.5 10/26/20 05:30: WBC 10.3, RBC 2.99 L, Hgb 7.9 L, Hct 26.6 L, MCV 89.0, MCH 26.4 L, MCHC 29.7 L, RDW Std Deviation 51.2 H, RDW Coeff of Johanna 15.8 H, Plt Count 333, MPV 9.1, Immature Gran % (Auto) 1.100 H, Neut % (Auto) 66.9, Lymph % (Auto) 13.0 L, [place] % (Auto) 14.9 H, Eos % (Auto) 3.8, Baso % (Auto) 0.3, Absolute Neuts (auto) 6.9, Absolute Lymphs (auto) 1.34, Nucleated RBC % 0, Target Cells 2 + 10/26/20 05:30: Vancomycin Trough 34.1 H 10/26/20 06:45: POC Glucose 145 H 10/26/20 10:45: POC Glucose 103 Micro: Microbiology 10/26/20 12:00 Mucosa - Nasopharyngeal SARS-CoV-2 Antigen (Rapid) - Final 10/24/20 20:20 Wound - Leg, Right Gram Stain - Final 10/24/20 20:20 Wound - Leg, Right Wound Culture - Preliminary GNR Poss Pseudomonas sp Gram positive smiley 10/24/20 20:20 Wound - Leg, Right Anaerobic Culture - Preliminary No anaerobic bacteria isolated.
[2020-10-26 16:45] LABS: Bedside Glucose 115 mg/dL (70-110)
[2020-10-26 18:01] LABS: Vancomycin, Trough Level 24.2 ug/mL (5.0-15.0)
--- NOTE | 2020-10-26 19:37 | NURSING ---
emergency charting effective now
--- NOTE | 2020-10-26 20:50 | PCM.RX.CS ---
Consult Pharmacy has been consulted to manage selected antiobiotic: Vancomycin Type of Consult: Follow-up Suspected Infection: Skin/Soft tissue Prior Doses of Antibiotics Received/Current Regimen: Medications Discontinued Medications Vancomycin HCl (Vancomycin) 1,000 mg in 200 mls @ 200 mls/hr IV Q12H AMBROSE Last Admin: 10/26/20 18:40 Dose: Infused Documented by: Labs: Sodium 136 mmol/L (136-145) 10/26/20 05:30 Potassium 4.0 mmol/L (3.5-5.1) 10/26/20 05:30 Chloride 105 mmol/L (98-107) 10/26/20 05:30 Carbon Dioxide 28.0 mmol/L (21.0-32.0) 10/26/20 05:30 Anion Gap 3 (5-15) L 10/26/20 05:30 BUN 30 mg/dL (7-18) H 10/26/20 05:30 Creatinine 1.30 mg/dL (0.70-1.30) 10/26/20 05:30 Est GFR (MDRD) Af Amer 71 mL/min (>60) 10/26/20 05:30 Est GFR (MDRD) Non-Af 59 mL/min (>60) L 10/26/20 05:30 BUN/Creatinine Ratio 23.1 RATIO (10-20) H 10/26/20 05:30 Glucose 105 mg/dL (74-106) 10/26/20 05:30 Vancomycin Trough 24.2 ug/mL (5.0-15.0) H 10/26/20 17:20 Microbiology: Microbiology 10/26/20 12:00 Mucosa - Nasopharyngeal SARS-CoV-2 Antigen (Rapid) - Final 10/24/20 20:20 Wound - Leg, Right Gram Stain - Final 10/24/20 20:20 Wound - Leg, Right Wound Culture - Preliminary GNR Poss Pseudomonas sp Gram positive smiley 10/24/20 20:20 Wound - Leg, Right Anaerobic Culture - Preliminary No anaerobic bacteria isolated. Weight used for dosin.4 kg Estimated Creatinine Clearance: 41.2 Goal Trough: 15-20 mcg/mL Pharmacy Plan for Drug Dosing: Vancomycin trough returned at 24.2mg/L above goal of 15-20. The order was discontinued and a random trough ordered for 10/27/20 1200. Vancomycin will be redosed when level returns <20mg/L. Pharmacy Service will continue to monitor and adjust dosing as required. Follow-Up Labs: Trough Vancomycin - random level Labs to be done on [date and time ordered]: 10/27/20 1200
[2020-10-26] MEDS: Latanoprost 0.005% 1 Bottle 1 DRP OPHTHALMIC (21:04)
[2020-10-26 21:15] LABS: Bedside Glucose 100 mg/dL (70-110)
[2020-10-26] MEDS: MELATONIN 3 MG TABLET PO (21:16)
[2020-10-26] MEDS: hydrOXYzine PAM 25 MG Capsule PO (23:55)
[2020-10-27] VITALS (10 sets, daily range): BP systolic 101–133; BP diastolic 42–72; PULSE 78–113; RESP 12–20; TEMP 36.8–37.5; O2SAT 96–100
[2020-10-27] MEDS: HYDROmorphone 1 MG/ML Syringe IV ×4 (03:33→14:05)
[2020-10-27] MEDS: 0.9% Saline Lock 10 ML Syringe IV ×6 (03:33→23:24)
--- NOTE | 2020-10-27 05:14 | CPS ---
pt went on own cpap/bipap unit from home with 2-3 L o2 bled into machine
[2020-10-27] MEDS: Heparin Injection (Vial) 5,000 UNIT/ML VIAL 5000 UNIT SC ×3 (06:20→21:44)
[2020-10-27 06:36] LABS: Bedside Glucose 94 mg/dL (70-110)
[2020-10-27] MEDS: Budesonide Respules 0.5 MG/2 ML AMPUL.NEB. INHALATION ×2 (07:04→19:52)
[2020-10-27] MEDS: Ipratropium/Albuterol Sulfate 3 ML AMPUL.NEB INHALATION ×2 (07:05→19:52)
[2020-10-27 07:58] LABS: Absolute Neutrophil Count 6.6 X10^3/uL (2.0-7.7); Basophil# 0.05 X10^3/uL; Basophil% 0.5 % (0-1); Eosinophil# 0.58 X10^3/uL; Eosinophils% 6.1 % (0-5); Hematocrit 31.8 % (40-54); Hemoglobin 9.1 g/dL (13.0-16.5); Lymphocyte % 11.6 % (19-41); Mean Corp Hgb Conc 28.6 g/dL (32-36); Mean Corpuscular Hgb 26.1 pg (27.0-32.0); Mean Corpuscular Volume 91.1 fL (80-94); Mean Platelet Vol. 8.7 fl (6.2-12.0); Monocyte# 1.08 X10^3/uL; Monocyte% 11.4 % (0-10); NRBC Flagged by Analyzer 0 % (0-5); Neutrophil # 6.62 X10^3/uL (2.7-7.7); Neutrophil % 69.9 % (47-70); Platelet Count 354 K/mm3 (150-450); RBC Distribution Width CV 15.9 % (11.6-14.6); RBC Distribution Width SD 52.8 fl (35.1-43.9); Red Blood Count 3.49 M/mm3 (4.6-6.2); White Blood Count 9.5 K/mm3 (4.4-11.0)
[2020-10-27 08:19] LABS: ALB/GLOB Ratio 0.4 RATIO (0.9-2.4); AST(SGOT) 27 U/L (15-37); Alanine Aminotransfer ALT/SGPT 39 U/L (16-61); Albumin, Serum 1.8 g/dL (3.2-5.0); Alkaline Phosphatase 70 U/L (45-117); Anion Gap 5 (5-15); BUN 20 mg/dL (7-18); BUN/Creat Ratio 17.2 RATIO (10-20); Calcium,Total 8.9 mg/dL (8.5-10.1); Chloride 107 mmol/L (98-107); Creatinine, Serum 1.16 mg/dL (0.70-1.30); EST Glomerular Filtration Rate 67 mL/min (>60); Est Glom Filt Rate - Afr Amer 81 mL/min (>60); Estimated Creatinine Clearance 62.64 ml/min; Globulin 5.1 g/dL (2.2-4.2); Glucose 93 mg/dL (74-106); Potassium 4.1 mmol/L (3.5-5.1); Protein, Total 6.9 g/dL (6.4-8.2); Sodium Level 139 mmol/L (136-145)
[2020-10-27] MEDS: Menthol/Lanolin/Calamine/Znox 113 GM Tube 1 APPLIC TOPICAL ×2 (10:30→21:45)
[2020-10-27] MEDS: BRIMONIDINE 0.2% 5ML BOTTLE 1 DRP OPHTHALMIC ×2 (10:38→21:46)
[2020-10-27] MEDS: Fluticasone 0.05% 1 SPRAY NASAL.SRY 2 SPRAY NASAL (10:39)
[2020-10-27] MEDS: Dorzolamide HCL/Timolol 10 ml Bottle 1 DRP OPHTHALMIC ×2 (10:39→21:46)
[2020-10-27] MEDS: Tamsulosin HCl 0.4 MG Capsule PO (10:40)
[2020-10-27] MEDS: Pantoprazole Sodium 20 MG Tablet PO (10:41)
[2020-10-27] MEDS: hydrOXYzine PAM 25 MG Capsule 50 MG PO ×4 (10:43→21:43)
[2020-10-27 11:51] LABS: Bedside Glucose 85 mg/dL (70-110)
[2020-10-27] MEDS: Silver Sulfadiazine 1% Crm 50 gm Bottle 1 APPLIC TOPICAL ×2 (13:00→21:50)
[2020-10-27 13:17] LABS: Vancomycin, Random Level 24.8 ug/mL (0.0-15.0)
--- NOTE | 2020-10-27 13:58 | PN.HOSP_ITS ---
Subjective Subjective Patient complains of pain weakness perinea in right lower extremity. He denied any fever or chills. His IV Dilaudid was increased to 2 mg every 4 as well as his p.o. oxycodone Objective Data Objective Data Vital Signs: Vital Signs Temp Pulse Resp BP Pulse Ox 98.7 F 78 18 132/72 H 99 10/27/20 10:49 10/27/20 10:50 10/27/20 10:49 10/27/20 10:49 10/27/20 10:49 Oxygen Flow Rate (L/min) 2 Oxygen Delivery Method Nasal Cannula Weight: 119.431 kg Body Mass Index (BMI) 38.9 Intake & Output: Intake and Output for Last 24 Hours 10/25/20 10/26/20 10/27/20 23:59 23:59 23:59 Intake Total 3550 / 3650 2947.5 / 2947.5 340 / 340 Output Total 1125 / 1875 2600 / 2600 500 / 500 Balance 2425 / 1775 347.5 / 347.5 -160 / -160 Medical Nutrition Assessment Dietitian: Malnutrition Criteria Met Start: 10/25/20 13:27 Freq: Status: Active Protocol: Document 10/25/20 13:41 AG (Rec: 10/25/20 13:41 AG [id number]) Nutrition Malnutrition Evidence of Malnutrition Exists No Intake Problem Inadequate Oral Intake Etiology r/t decreased appetite d/t mouth and generalized pain Signs/Symptoms as evidenced by estimated PO intake meeting <50% of estimated nutritional needs x 4 weeks, unintentional wt loss of 11.7#/4.25% x 4 weeks Status Active Problem Recommendation Dietitian Recommendations/Changes Continue 1999 calorie controlled, consistent carbohydrate diet. Glucerna 120mL TID- will leave on MAR and d/c from diet order as these are duplicate orders. Increase Glucerna to 4x/day if PO intake at meals does not improve. Lab / Micro Data Result Diagrams: 10/27/20 07:40 10/27/20 07:40 Labs: Laboratory Results - last 24 hr 10/26/20 16:43: POC Glucose 115 H 10/26/20 17:20: Vancomycin Trough 24.2 H 10/26/20 21:03: POC Glucose 100 10/27/20 06:23: POC Glucose 94 10/27/20 07:40: WBC 9.5, RBC 3.49 L, Hgb 9.1 L, Hct 31.8 L, MCV 91.1, MCH 26.1 L , MCHC 28.6 L, RDW Std Deviation 52.8 H, RDW Coeff of Johanna 15.9 H, Plt Count 354, MPV 8.7, Immature Gran % (Auto) 0.500, Neut % (Auto) 69.9, Lymph % (Auto) 11.6 L , [place] % (Auto) 11.4 H, Eos % (Auto) 6.1 H, Baso % (Auto) 0.5, Absolute Neuts (auto) 6.6, Absolute Lymphs (auto) 1.10, Nucleated RBC % 0 10/27/20 07:40: Sodium 139, Potassium 4.1, Chloride 107, Carbon Dioxide 27.0, An ion Gap 5, BUN 20 H, Creatinine 1.16, Estim Creat Clear Calc 62.64, Est GFR ( MDRD) Af Amer 81, Est GFR (MDRD) Non-Af 67, BUN/Creatinine Ratio 17.2, Glucose 93, Calcium 8.9, Total Bilirubin 0.30, AST 27, ALT 39, Alkaline Phosphatase 70, Total Protein 6.9, Albumin 1.8 L, Globulin 5.1 H, Albumin/Globulin Ratio 0.4 L 10/27/20 11:44: POC Glucose 85 10/27/20 12:28: Random Vancomycin 24.8 H Micro: Microbiology 10/24/20 20:20 Wound - Leg, Right Gram Stain - Final 10/24/20 20:20 Wound - Leg, Right Wound Culture - Preliminary Pseudomonas aeroginosa#2 Pseudomonas aeroginosa Corynebacterium striatum Coag Negative Staph 10/24/20 20:20 Wound - Leg, Right Anaerobic Culture - Final No anaerobic bacteria isolated. 10/24/20 16:40 Blood Culture (Wb) - Anticubital Right Blood Culture - Preliminary No growth in 48 hours. 10/24/20 16:25 Blood Culture (Wb) - Left Forearm Blood Culture - Preliminary No growth in 48 hours. 10/26/20 12:00 Mucosa - Nasopharyngeal SARS-CoV-2 Antigen (Rapid) - Final Physical Exam Narrative GENERAL: Alert oriented x3, obese, not pale, not jaundiced, on 2L oxygen HEENT: Atraumatic; EYES; Anicteric, Normal Conjunctiva NECK; supple, normal thyroid, RESPIRATORY: Diminished CARDIOVASCULAR: Regular S1 S2, GI: soft, normoactive bowel sounds, : Area of excoriation involving the scrotal region and perineum EXTREMITIES: Ulceration involving the distal half of the right lower extremity MUSCULOSKELETAL: no muscle waisting NEURO: Diminished sensation from the L2 dermatome downwards Assessment & Plan Assessment/Plan (1) Scrotal ulcer: (2) Inguinal ulcer: (3) Open wound of perineum: (4) Bilateral leg weakness: (5) Adult failure to thrive: (6) Physical deconditioning: (7) HASMKUH (acute kidney injury): (8) Type 2 diabetes mellitus: (9) ADELAIDE (obstructive sleep apnea): (10) GERD (gastroesophageal reflux disease): (11) Chronic kidney disease, stage 3: (12) Morbid obesity: (13) Chronic diastolic (congestive) heart failure: (14) Essential (primary) hypertension: (15) Hyperlipidemia: QUALIFIERS: Hyperlipidemia type: unspecified Qualified Code(s): E78.5 - Hyperlipidemia, unspecified PLAN: 1. 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 Ulceration involving the perineum and right lower extremity laceration Wound cultures growing possible Pseudomonas Continue on IV vancomycin and Zosyn, ID following 3. Acute kidney injury, superimposed on CKD stage IIIb, resolved 4. Diabetes mellitus type II, complicated by neuropathy and nephropathy, Blood sugars are fairly controlled, continue on Lantus with insulin sliding scale 5. Rest of his chronic medical conditions are stable Meds reviewed Charges/Coding Visit Charges Inpatient E&M: 32191 Subs Hosp L2
[2020-10-27] MEDS: DiphenhydrAMINE 25 MG Capsule PO (14:14)
--- NOTE | 2020-10-27 14:37 | PN.SURG_ITS ---
Subjective Subjective Patient is resting comfortably. Does have pain in his perineum secondary to extensive excoriations. Does have pain in his nonhealing diabetic ulcer right leg and ankle. Objective Data Objective Data Vital Signs: Vital Signs Temp Pulse Resp BP Pulse Ox 98.7 F 78 18 132/72 H 99 10/27/20 10:49 10/27/20 10:50 10/27/20 10:49 10/27/20 10:49 10/27/20 10:49 Oxygen Flow Rate (L/min) 2 Oxygen Delivery Method Nasal Cannula Weight: 263 lb 4.804 oz Body Mass Index (BMI) 38.9 Intake & Output: Intake and Output for Last 24 Hours 10/25/20 10/26/20 10/27/20 23:59 23:59 23:59 Intake Total 3550 / 3650 2947.5 / 2947.5 394.75 / 394.75 Output Total 1125 / 1875 2600 / 2600 500 / 500 Balance 2425 / 1775 347.5 / 347.5 -105.25 / -105.25 Medical Nutrition Assessment Dietitian: Malnutrition Criteria Met Start: 10/25/20 13 :27 Freq: Status: Active Protocol: Document 10/25/20 13:41 AG (Rec: 10/25/20 13:41 AG [id number]) Nutrition Malnutrition Evidence of Malnutrition Exists No Intake Problem Inadequate Oral Intake Etiology r/t decreased appetite d/t mouth and generalized pain Signs/Symptoms as evidenced by estimated PO intake meeting <50% of estimated nutritional needs x 4 weeks, unintentional wt loss of 11.7#/4.25% x 4 weeks Status Active Problem Recommendation Dietitian Recommendations/Changes Continue 1999 calorie controlled, consistent carbohydrate diet. Glucerna 120mL TID- will leave on MAR and d/c from diet order as these are duplicate orders. Increase Glucerna to 4x/day if PO intake at meals does not improve. Lab / Micro Data Attestation: I reviewed the patient's lab results. Result Diagrams: 10/29/20 06:02 10/29/20 06:02 Labs: Laboratory Results - last 24 hr 10/26/20 16:43: POC Glucose 115 H 10/26/20 17:20: Vancomycin Trough 24.2 H 10/26/20 21:03: POC Glucose 100 10/27/20 06:23: POC Glucose 94 10/27/20 07:40: WBC 9.5, RBC 3.49 L, Hgb 9.1 L, Hct 31.8 L, MCV 91.1, MCH 26.1 L , MCHC 28.6 L, RDW Std Deviation 52.8 H, RDW Coeff of Johanna 15.9 H, Plt Count 354, MPV 8.7, Immature Gran % (Auto) 0.500, Neut % (Auto) 69.9, Lymph % (Auto) 11.6 L , [place] % (Auto) 11.4 H, Eos % (Auto) 6.1 H, Baso % (Auto) 0.5, Absolute Neuts (auto) 6.6, Absolute Lymphs (auto) 1.10, Nucleated RBC % 0 10/27/20 07:40: Sodium 139, Potassium 4.1, Chloride 107, Carbon Dioxide 27.0, Anion Gap 5, BUN 20 H, Creatinine 1.16, Estim Creat Clear Calc 62.64, Est GFR (MDRD) Af Amer 81, Est GFR (MDRD) Non-Af 67, BUN/Creatinine Ratio 17.2, Glucose 93, Calcium 8.9, Total Bilirubin 0.30, AST 27, ALT 39, Alkaline Phosphatase 70, Total Protein 6.9, Albumin 1.8 L, Globulin 5.1 H, Albumin/Globulin Ratio 0.4 L 10/27/20 11:44: POC Glucose 85 10/27/20 12:28: Random Vancomycin 24.8 H Micro: Microbiology 10/24/20 20:20 Wound - Leg, Right Gram Stain - Final 10/24/20 20:20 Wound - Leg, Right Wound Culture - Preliminary Pseudomonas aeroginosa#2 Pseudomonas aeroginosa Corynebacterium striatum Coag Negative Staph 10/24/20 20:20 Wound - Leg, Right Anaerobic Culture - Final No anaerobic bacteria isolated. 10/24/20 16:40 Blood Culture (Wb) - Anticubital Right Blood Culture - Preliminary No growth in 48 hours. 10/24/20 16:25 Blood Culture (Wb) - Left Forearm Blood Culture - Preliminary No growth in 48 hours. 10/26/20 12:00 Mucosa - Nasopharyngeal SARS-CoV-2 Antigen (Rapid) - Final Physical Exam Narrative GENERAL: cooperative HEENT: PERRL. EOMI. Throat is clear. NECK; supple, nontender. No cervical adenopathy. RESPIRATORY: Diminished to auscultation CARDIOVASCULAR: Regular rate and rhythm. GI: soft, nondistended. : Extensive areas of excoriations/superficial ulcers scrotum, shaft of penis, perineum, bilateral inguinal areas and bilateral perianal areas. Stable with Silvadene dressings. EXTREMITIES: Large nonhealing ulcer right leg involving medial and lateral aspects. Ulcer extends into the medial ankle. Some granulation tissue present. Extensive exudate present. Tender to palpation. Pulses are decreased. MUSCULOSKELETAL: Has weakness lower extremities. NEURO: Cranial nerves II-XII grossly intact. PSYCH; Normal affect. Assessment & Plan Assessment/Plan (1) Skin ulcer of right lower leg with fat layer exposed: (2) Diabetes mellitus with ulcer of lower extremity: (3) Non-healing ulcer of multiple sites, limited to breakdown of skin: (4) Excoriation of multiple sites: (5) MRSA (methicillin resistant Staphylococcus aureus) infection: (6) Pseudomonas aeruginosa infection: (7) Chronic venous insufficiency: (8) Type 2 diabetes mellitus: (9) Morbid obesity: PLAN: His extensive excoriations/superficial ulcers scrotum, shaft of penis, perineum, bilateral inguinal areas, and bilateral perianal areas are stable with the Silvadene. This is secondary to pressure from being immobile and from moisture and sweat from the multiple skin folds in the area. There is no surgical urgency yet in this area. However, with his history of diabetes mellitus, there is the risk of developing a rapidly necrotizing process. Will watch this area very closely. Any worsening areas that are seen will need operative intervention with excisional debridement of the necrotizing soft tissue infection. If extensive surgery is needed in this area, the resultant wounds will be large. Healing will be prolonged. There is a good chance of stool contamination due to the proximity of the ulcers to the anal opening, and he would benefit from a diverting colostomy. Postoperative wound care would be with Dakin's dressing changes daily. Once the wounds show good granulation tissue and are more superficial, can proceed with delayed closure with skin grafting. Patient is aware of the possibility and voices understanding. Also with the large size of the wounds in the scrotum, penile shaft, perineum, bilateral inguinal areas and bilateral perianal areas, postoperative wound care can be challenging. It is labor intensive and sometimes it is hard to get control of his pain. In this situation, he would be better treated with transfer to a Burn Unit where they give much higher doses of Morphine and also utilize other modalities like whirlpool which would help to keep these excoriations/superficial ulcers clean which would minimize potential necrotizing soft tissue infections. His nonhealing ulcer right leg and medial ankle is stable. Recent wound culture showed Pseudomonas aeroginosa and MRSA. He is currently on Vancomycin and Zosyn. The ulcer is tender to palpation and has some granulation tissue and extensive exudate and indurated surrounding scar tissue. Patient needs a surgical preparation of his right leg with incision and drainage and excisional debr idement nonhealing painful MRSA ulcer right leg and medial ankle. It is scheduled for this under general anesthesia. Tissue that is removed will be sent to Pathology for analysis to rule out carcinoma and to Microbiology for culture. A positive culture will necessitate antibiotic therapy. The resultant wound will be quite large and postoperative wound care will be with the VAC. Ulcers on this part of the lower extremity take a very long time to heal. I tell patients it will take at least 6 months or longer to heal. In the meantime, if good granulation tissue forms, can proceed sooner with delayed closure with skin grafting. For this right leg ulcer that has a venous component, will check noninvasive arterial doppler studies to look for vascular stenosis that could be cont ributing to the chronic nonhealing nature of this ulcer. Patient was informed of the risks and complications of the procedure including alternatives to surgery. These were discussed with the patient personally. Patient voices understanding and wishes to proceed. In the meantime, arrangements are being made for transfer to a tertiary center since he has a lot of co-morbidities that if they worsen can be potentially life threatening. A [facility] is not equipped for such hyperacuity of his co-morbidities if they were to worsen. It is safer to transfer a patient to a tertiary center when reasonably medically stable instead of waiting until it becomes an emergency and the patient then has to be life flighted. Patient voices understanding. Charges/Coding Visit Charges Inpatient E&M: 28076 Subs Hosp L1 (ICD-10 - E11.622, L97.912, L98.491, T07.xxxA, A49.02, A49.8, I87.2, E11.9, E66.01)
[2020-10-27] MEDS: oxyCODONE 5 MG Tablet 10 MG PO ×2 (16:46→21:42)
[2020-10-27 16:50] LABS: Bedside Glucose 102 mg/dL (70-110)
--- NOTE | 2020-10-27 16:58 | CASEMGMT ---
CHARISSA ORDOÑEZ NOTE: Pt is active w/[facility] and they are aware pt has been admitted to [facility]. VM left w/[facility] that plan is for pt to transfer to tertiary hospital. Nora MICHAELS RN CM
[2020-10-27] MEDS: Juven (unflavored) Packet 1 PACKET PO (17:58)
[2020-10-27 18:28] LABS: Vancomycin, Random Level 19.9 ug/mL (0.0-15.0)
[2020-10-27] MEDS: HYDROmorphone 1 MG/ML Syringe 2 MG IV ×2 (18:58→23:24)
--- NOTE | 2020-10-27 20:35 | PCM.RX.CS ---
Consult Pharmacy has been consulted to manage selected antiobiotic: Vancomycin Type of Consult: Follow-up Labs: Sodium 139 mmol/L (136-145) 10/27/20 07:40 Potassium 4.1 mmol/L (3.5-5.1) 10/27/20 07:40 Chloride 107 mmol/L (98-107) 10/27/20 07:40 Carbon Dioxide 27.0 mmol/L (21.0-32.0) 10/27/20 07:40 Anion Gap 5 (5-15) 10/27/20 07:40 BUN 20 mg/dL (7-18) H 10/27/20 07:40 Creatinine 1.16 mg/dL (0.70-1.30) 10/27/20 07:40 Est GFR (MDRD) Af Amer 81 mL/min (>60) 10/27/20 07:40 Est GFR (MDRD) Non-Af 67 mL/min (>60) 10/27/20 07:40 BUN/Creatinine Ratio 17.2 RATIO (10-20) 10/27/20 07:40 Glucose 93 mg/dL (74-106) 10/27/20 07:40 Vancomycin Trough 24.2 ug/mL (5.0-15.0) H 10/26/20 17:20 Random Vancomycin 19.9 ug/mL (0.0-15.0) H 10/27/20 17:45 Microbiology: Microbiology 10/24/20 20:20 Wound - Leg, Right Gram Stain - Final 10/24/20 20:20 Wound - Leg, Right Wound Culture - Preliminary Pseudomonas aeroginosa#2 Pseudomonas aeroginosa Corynebacterium striatum Coag Negative Staph 10/24/20 20:20 Wound - Leg, Right Anaerobic Culture - Final No anaerobic bacteria isolated. 10/24/20 16:40 Blood Culture (Wb) - Anticubital Right Blood Culture - Preliminary No growth in 48 hours. 10/24/20 16:25 Blood Culture (Wb) - Left Forearm Blood Culture - Preliminary No growth in 48 hours. 10/26/20 12:00 Mucosa - Nasopharyngeal SARS-CoV-2 Antigen (Rapid) - Final Goal Trough: 15-20 mcg/mL Pharmacy Plan for Drug Dosing: VANCOMYCIN LEVEL RECEIVED Current Vancomycin Dose: on hold Number of Doses Received: Vancomycin Level: random level resulted at 19.9 Hours Since Last Dose: 24 hours Renal Function: SrCr 1.16 Renal Function Trend: stable Lab/Micro: Vancomycin Plan/Comments: restart patient at 1gm q24h and check trough before the 3rd dose Pending Level: 10/29/20 at 2030 Pharmacy Service will continue to monitor and adjust dosing as required. Follow-Up Labs: Trough Vancomycin - 10/29/20 at 2030
[2020-10-27] MEDS: Vancomycin IV 1,000 MG/200 ML BAG 200 MG IV (21:31)
[2020-10-27] MEDS: Latanoprost 0.005% 1 Bottle 1 DRP OPHTHALMIC (21:46)
[2020-10-27 22:35] LABS: Bedside Glucose 143 mg/dL (70-110)
[2020-10-28] VITALS (9 sets, daily range): BP systolic 117–123; BP diastolic 67–76; PULSE 82–124; RESP 18–24; TEMP 36.4–37.6; O2SAT 98–99
[2020-10-28] MEDS: Albuterol 2.5 MG/3 ML VIAL.NEB. INHALATION (00:06)
--- NOTE | 2020-10-28 00:48 | NURSING ---
[facility] transfer center updated on patient status.
[2020-10-28] MEDS: oxyCODONE 5 MG Tablet 10 MG PO ×2 (02:56→06:57)
[2020-10-28 05:51] LABS: Absolute Neutrophil Count 6.4 X10^3/uL (2.0-7.7); Basophil# 0.03 X10^3/uL; Basophil% 0.3 % (0-1); Eosinophil# 0.69 X10^3/uL; Eosinophils% 6.8 % (0-5); Hematocrit 26.9 % (40-54); Hemoglobin 7.9 g/dL (13.0-16.5); Lymphocyte % 14.7 % (19-41); Mean Corp Hgb Conc 29.4 g/dL (32-36); Mean Corpuscular Hgb 26.8 pg (27.0-32.0); Mean Corpuscular Volume 91.2 fL (80-94); Mean Platelet Vol. 8.8 fl (6.2-12.0); Monocyte% 13.8 % (0-10); NRBC Flagged by Analyzer 0 % (0-5); Neutrophil # 6.43 X10^3/uL (2.7-7.7); Neutrophil % 63.1 % (47-70); Platelet Count 339 K/mm3 (150-450); RBC Distribution Width SD 53.5 fl (35.1-43.9); Red Blood Count 2.95 M/mm3 (4.6-6.2); White Blood Count 10.2 K/mm3 (4.4-11.0)
[2020-10-28 06:21] LABS: ALB/GLOB Ratio 0.4 RATIO (0.9-2.4); AST(SGOT) 21 U/L (15-37); Alanine Aminotransfer ALT/SGPT 34 U/L (16-61); Albumin, Serum 1.7 g/dL (3.2-5.0); Alkaline Phosphatase 64 U/L (45-117); Anion Gap 4 (5-15); BUN 18 mg/dL (7-18); BUN/Creat Ratio 14.5 RATIO (10-20); Calcium,Total 8.9 mg/dL (8.5-10.1); Chloride 107 mmol/L (98-107); Creatinine, Serum 1.24 mg/dL (0.70-1.30); EST Glomerular Filtration Rate 62 mL/min (>60); Est Glom Filt Rate - Afr Amer 75 mL/min (>60); Globulin 4.7 g/dL (2.2-4.2); Glucose 102 mg/dL (74-106); Potassium 3.9 mmol/L (3.5-5.1); Protein, Total 6.4 g/dL (6.4-8.2); Sodium Level 139 mmol/L (136-145)
[2020-10-28] MEDS: Heparin Injection (Vial) 5,000 UNIT/ML VIAL 5000 UNIT SC ×2 (06:26→14:09)
[2020-10-28 06:40] LABS: Bedside Glucose 97 mg/dL (70-110)
[2020-10-28] MEDS: Ipratropium/Albuterol Sulfate 3 ML AMPUL.NEB INHALATION ×3 (06:49→19:46)
[2020-10-28] MEDS: Budesonide Respules 0.5 MG/2 ML AMPUL.NEB. INHALATION ×2 (06:49→19:46)
[2020-10-28] MEDS: hydrOXYzine PAM 25 MG Capsule 50 MG PO ×3 (09:09→18:03)
[2020-10-28] MEDS: Pantoprazole Sodium 20 MG Tablet PO (09:09)
[2020-10-28] MEDS: Juven (unflavored) Packet 1 PACKET PO ×2 (09:09→18:04)
[2020-10-28] MEDS: Tamsulosin HCl 0.4 MG Capsule PO (09:10)
[2020-10-28] MEDS: Menthol/Lanolin/Calamine/Znox 113 GM Tube 1 APPLIC TOPICAL ×3 (09:15→18:03)
[2020-10-28] MEDS: Silver Sulfadiazine 1% Crm 50 gm Bottle 1 APPLIC TOPICAL (09:16)
[2020-10-28] MEDS: Dorzolamide HCL/Timolol 10 ml Bottle 1 DRP OPHTHALMIC ×2 (09:22→20:43)
[2020-10-28] MEDS: BRIMONIDINE 0.2% 5ML BOTTLE 1 DRP OPHTHALMIC ×2 (09:22→20:43)
--- NOTE | 2020-10-28 09:54 | EKG12_ITS ---
Test Reason : ARRYTHMIA Blood Pressure : / mmHG Vent. Rate : 102 BPM Atrial Rate : 102 BPM P-R Int : 168 ms QRS Dur : 076 ms QT Int : 334 ms P-R-T Axes : 074 -10 061 degrees QTc Int : 435 ms Sinus tachycardia with Premature atrial complexes Low voltage QRS Septal infarct , age undetermined Abnormal ECG When compared with ECG of 28-OCT-2020 12:51, MANUAL COMPARISON REQUIRED, DATA IS UNCONFIRMED Confirmed by JANEL HOLDER, JJ ([id number]), features editor BERKLEY MCARTHUR ([id number]) on 11/02/2020 1:12:58 PM Referred By: AFTAB Confirmed By:JJ ISLAS MD
--- NOTE | 2020-10-28 10:01 | PCM.PN.HOSP ---
Subjective Subjective Patient was seen and examined. Complains of severe pain in the perineal area. Dilaudid increased. Patient admits to feeling depressed. EKG shows QTC of 383. Started on Zoloft Objective Data Objective Data Vital Signs: Vital Signs Temp Pulse Resp BP Pulse Ox 97.6 F L 86 18 117/67 99 10/28/20 09:00 10/28/20 09:00 10/28/20 09:00 10/28/20 09:00 10/28/20 09:00 Oxygen Flow Rate (L/min) 2 Oxygen Delivery Method Nasal Cannula Weight: 119.431 kg Body Mass Index (BMI) 38.9 Intake & Output: Intake and Output for Last 24 Hours 10/26/20 10/27/20 10/28/20 23:59 23:59 23:59 Intake Total 2947.5 / 2947.5 1454.25 / 1454.25 123.75 / 123.75 Output Total 2600 / 2600 825 / 825 350 / 350 Balance 347.5 / 347.5 629.25 / 629.25 -226.25 / -226.25 Medical Nutrition Assessment Dietitian: Malnutrition Criteria Met Start: 10/25/20 13:27 Freq: Status: Active Protocol: Document 10/25/20 13:41 (Rec: 10/25/20 13:41 [id number]) Nutrition Malnutrition Evidence of Malnutrition Exists No Intake Problem Inadequate Oral Intake Etiology r/t decreased appetite d/t mouth and generalized pain Signs/Symptoms as evidenced by estimated PO intake meeting <50% of estimated nutritional needs x 4 weeks, unintentional wt loss of 11.7#/4.25% x 4 weeks Status Active Problem Recommendation Dietitian Recommendations/Changes Continue 1999 calorie controlled, consistent carbohydrate diet. Glucerna 120mL TID- will leave on MAR and d/c from diet order as these are duplicate orders. Increase Glucerna to 4x/day if PO intake at meals does not improve. Lab / Micro Data Result Diagrams: 10/28/20 12:33 10/28/20 05:28 Labs: Laboratory Results - last 24 hr 10/27/20 11:44: POC Glucose 85 10/27/20 12:28: Random Vancomycin 24.8 H 10/27/20 16:40: POC Glucose 102 10/27/20 17:45: Random Vancomycin 19.9 H 10/27/20 21:48: POC Glucose 143 H 10/28/20 05:28: WBC 10.2, RBC 2.95 L, Hgb 7.9 L, Hct 26.9 L, MCV 91.2, MCH 26.8 L, MCHC 29.4 L, RDW Std Deviation 53.5 H, RDW Coeff of Johanna 16.0 H, Plt Count 339, MPV 8.8, Immature Gran % (Auto) 1.300 H, Neut % (Auto) 63.1, Lymph % (Auto) 14.7 L, [place] % (Auto) 13.8 H, Eos % (Auto) 6.8 H, Baso % (Auto) 0.3, Absolute Neuts (auto) 6.4, Absolute Lymphs (auto) 1.50, Nucleated RBC % 0 10/28/20 05:28: Sodium 139, Potassium 3.9, Chloride 107, Carbon Dioxide 28.0, Anion Gap 4 L, BUN 18, Creatinine 1.24, Estim Creat Clear Calc 58.60, Est GFR (MDRD) Af Amer 75, Est GFR (MDRD) Non-Af 62, BUN/Creatinine Ratio 14.5, Glucose 102, Calcium 8.9, Total Bilirubin 0.40, AST 21, ALT 34, Alkaline Phosphatase 64, Total Protein 6.4, Albumin 1.7 L, Globulin 4.7 H, Albumin/Globulin Ratio 0.4 L 10/28/20 06:29: POC Glucose 97 Micro: Microbiology 10/24/20 20:20 Wound - Leg, Right Gram Stain - Final 10/24/20 20:20 Wound - Leg, Right Wound Culture - Final Pseudomonas aeroginosa#2 Pseudomonas aeroginosa Corynebacterium striatum Staphylococcus epidermidis 10/24/20 20:20 Wound - Leg, Right Anaerobic Culture - Final No anaerobic bacteria isolated. 10/24/20 16:40 Blood Culture (Wb) - Anticubital Right Blood Culture - Preliminary No growth in 48 hours. 10/24/20 16:25 Blood Culture (Wb) - Left Forearm Blood Culture - Preliminary No growth in 48 hours. 10/26/20 12:00 Mucosa - Nasopharyngeal SARS-CoV-2 Antigen (Rapid) - Final Physical Exam Narrative GENERAL: Alert oriented x3, obese, not pale, not jaundiced, on 2L oxygen HEENT: Atraumatic; EYES; Anicteric, Normal Conjunctiva NECK; supple, normal thyroid, RESPIRATORY: Diminished CARDIOVASCULAR: Regular S1 S2, GI: soft, normoactive bowel sounds, : Area of excoriation involving the scrotal region and perineum EXTREMITIES: Ulceration involving the distal half of the right lower extremity MUSCULOSKELETAL: no muscle waisting NEURO: Diminished sensation from the L2 dermatome downwards Assessment & Plan Assessment/Plan (1) Scrotal ulcer: (2) Inguinal ulcer: (3) Open wound of perineum: (4) Bilateral leg weakness: (5) Adult failure to thrive: (6) Physical deconditioning: (7) HASMUKH (acute kidney injury): (8) Type 2 diabetes mellitus: (9) ADELAIDE (obstructive sleep apnea): (10) GERD (gastroesophageal reflux disease): (11) Chronic kidney disease, stage 3: (12) Morbid obesity: (13) Chronic diastolic (congestive) heart failure: (14) Essential (primary) hypertension: (15) Hyperlipidemia: QUALIFIERS: Hyperlipidemia type: unspecified Qualified Code(s): E78.5 - Hyperlipidemia, unspecified PLAN: 1. 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 Ulceration involving the perineum and right lower extremity laceration Wound cultures growing possible Pseudomonas Wound RN following. Plastic surgery and infectious disease consulted Continue on IV vancomycin and Zosyn 3. Anemia of chronic disease, slight drop in hemoglobin, repeat H&H shows that hemoglobin is at baseline at 8.2 We will check iron stores 4. Acute kidney injury, superimposed on CKD stage IIIb, creatinine is at the baseline 5. Depression, will start patient on Zoloft 25 mg daily 6. Diabetes mellitus type II, complicated by neuropathy and nephropathy, Blood sugars are fairly controlled, continue on Lantus with insulin sliding scale 7. Rest of his chronic medical conditions are stable Meds reviewed Charges/Coding Visit Charges Inpatient E&M: 08954 Subs Hosp L2
[2020-10-28] MEDS: HYDROmorphone 1 MG/ML Syringe 2 MG IV (10:04)
[2020-10-28] MEDS: 0.9% Saline Lock 10 ML Syringe IV ×2 (10:04→20:40)
[2020-10-28 10:22] LABS: Hematocrit 26.4 % (40-54); Hemoglobin 7.7 g/dL (13.0-16.5)
[2020-10-28 11:35] LABS: Bedside Glucose 106 mg/dL (70-110)
[2020-10-28 12:54] LABS: Hematocrit 28.2 % (40-54); Hemoglobin 8.2 g/dL (13.0-16.5)
[2020-10-28] MEDS: Acetaminophen 325 MG Tablet 650 MG PO ×2 (14:11→20:35)
[2020-10-28] MEDS: oxyCODONE HCl Cr 10 MG Tablet PO (15:06)
[2020-10-28 17:09] LABS: Ferritin 345 ng/mL (26-388); Iron 21 ug/dL (65-175); Iron Binding Capacity,Total 159 ug/dL (250-450); PERCENT IRON SATURATION 13.2 % (15.0-55.0)
[2020-10-28 18:10] LABS: Bedside Glucose 125 mg/dL (70-110)
--- NOTE | 2020-10-28 19:08 | PCM.PN.ID ---
Physical Exam Narrative Feeling better, no fever, no n/v/d, wounds improving Const alert General Appearance: cooperative Resp clear to auscultation bilaterally Cardio regular rate and regular rhythm GI normal to inspection, nondistended, normoactive bowel sounds Skin Skin Narrative: no new rash ID ID: Route of nutrition/ use of supplements: [] Nutritional Intake: [] IV Site: [] Prieto Catheter: [] Assessment & Plan Assessment/Plan (1) Pseudomonas aeruginosa infection: (2) MRSA (methicillin resistant Staphylococcus aureus) infection: PLAN: Scrotal and RLE infected wounds. Seen by Dr. Aragon. Has completed covid vaccine. HASMUKH improved. On vanc/zosyn. Improving. Plan on po abx at discharge. Will follow
[2020-10-28] MEDS: Vancomycin IV 1,000 MG/200 ML BAG 200 MG IV (20:35)
[2020-10-28] MEDS: Latanoprost 0.005% 1 Bottle 1 DRP OPHTHALMIC (20:41)
[2020-10-29] VITALS (13 sets, daily range): BP systolic 98–130; BP diastolic 62–78; PULSE 62–129; RESP 16–22; TEMP 36.1–37.4; O2SAT 90–99
[2020-10-29] MEDS: Silver Sulfadiazine 1% Crm 50 gm Bottle 1 APPLIC TOPICAL ×2 (00:08→10:45)
[2020-10-29] MEDS: Menthol/Lanolin/Calamine/Znox 113 GM Tube 1 APPLIC TOPICAL ×4 (00:09→17:34)
[2020-10-29] MEDS: hydrOXYzine PAM 25 MG Capsule 50 MG PO ×5 (00:18→20:37)
[2020-10-29] MEDS: Heparin Injection (Vial) 5,000 UNIT/ML VIAL 5000 UNIT SC ×4 (00:18→20:37)
[2020-10-29] MEDS: oxyCODONE HCl Cr 10 MG Tablet PO (00:18)
[2020-10-29] MEDS: HYDROmorphone 1 MG/ML Syringe 2 MG IV ×4 (01:04→18:21)
[2020-10-29] MEDS: 0.9% Saline Lock 10 ML Syringe IV ×5 (01:27→20:34)
[2020-10-29 01:40] LABS: Bedside Glucose 106 mg/dL (70-110)
--- NOTE | 2020-10-29 02:08 | NURSING ---
Drew with [facility] transfer called to check on patient. This RN reported his wounds look about the same. Most recent set of vitals given. When a bed opens up they will give us a call. We should call the transfer line at [phone] if there is any change in status.
--- NOTE | 2020-10-29 05:47 | NURSING ---
[facility] called for an update on vital signs for this pt. No bed yet.
[2020-10-29 06:23] LABS: Absolute Lymphocyte Count 1.56 X10^3/uL (0.83-4.51); Absolute Neutrophil Count 7.2 X10^3/uL (2.0-7.7); Basophil# 0.04 X10^3/uL; Basophil% 0.4 % (0-1); Eosinophil# 0.64 X10^3/uL; Hematocrit 28.6 % (40-54); Hemoglobin 8.4 g/dL (13.0-16.5); Lymphocyte # 1.56 X10^3/ul (0.83-4.51); Lymphocyte % 14.6 % (19-41); Mean Corp Hgb Conc 29.4 g/dL (32-36); Mean Corpuscular Hgb 26.6 pg (27.0-32.0); Mean Corpuscular Volume 90.5 fL (80-94); Mean Platelet Vol. 8.6 fl (6.2-12.0); Monocyte# 1.15 X10^3/uL; Monocyte% 10.8 % (0-10); NRBC Flagged by Analyzer 0 % (0-5); Neutrophil # 7.22 X10^3/uL (2.7-7.7); Neutrophil % 67.5 % (47-70); Platelet Count 344 K/mm3 (150-450); RBC Distribution Width CV 15.9 % (11.6-14.6); RBC Distribution Width SD 52.7 fl (35.1-43.9); Red Blood Count 3.16 M/mm3 (4.6-6.2); White Blood Count 10.7 K/mm3 (4.4-11.0)
[2020-10-29 06:47] LABS: ALB/GLOB Ratio 0.3 RATIO (0.9-2.4); AST(SGOT) 17 U/L (15-37); Alanine Aminotransfer ALT/SGPT 27 U/L (16-61); Albumin, Serum 1.6 g/dL (3.2-5.0); Alkaline Phosphatase 65 U/L (45-117); Anion Gap 4 (5-15); BUN 23 mg/dL (7-18); Calcium,Total 8.8 mg/dL (8.5-10.1); Chloride 106 mmol/L (98-107); Creatinine, Serum 1.28 mg/dL (0.70-1.30); EST Glomerular Filtration Rate 60 mL/min (>60); Est Glom Filt Rate - Afr Amer 72 mL/min (>60); Estimated Creatinine Clearance 56.77 ml/min; Globulin 4.7 g/dL (2.2-4.2); Glucose 94 mg/dL (74-106); Potassium 3.9 mmol/L (3.5-5.1); Protein, Total 6.3 g/dL (6.4-8.2); Sodium Level 138 mmol/L (136-145)
[2020-10-29 07:00] LABS: Bedside Glucose 100 mg/dL (70-110)
[2020-10-29] MEDS: Budesonide Respules 0.5 MG/2 ML AMPUL.NEB. INHALATION ×2 (07:02→19:03)
[2020-10-29] MEDS: Ipratropium/Albuterol Sulfate 3 ML AMPUL.NEB INHALATION ×3 (07:02→19:03)
--- NOTE | 2020-10-29 08:38 | EKG12_ITS ---
Test Reason : QTC Blood Pressure : / mmHG Vent. Rate : 091 BPM Atrial Rate : 091 BPM P-R Int : 194 ms QRS Dur : 094 ms QT Int : 312 ms P-R-T Axes : 002 -13 075 degrees QTc Int : 383 ms Normal sinus rhythm Septal infarct , age undetermined Abnormal ECG When compared with ECG of 24-OCT-2020 15:59, Premature ventricular complexes are no longer Present QT has shortened Confirmed by JANEL HOLDER, JJ ([id number]), purchasing expeditor BERKLEY MCARTHUR ([id number]) on 11/02/2020 1:15:22 PM Referred By: ELICEO Confirmed By:JJ ISLAS MD
[2020-10-29] MEDS: Juven (unflavored) Packet 1 PACKET PO ×2 (08:53→17:29)
[2020-10-29] MEDS: Tamsulosin HCl 0.4 MG Capsule PO (08:54)
[2020-10-29] MEDS: Pantoprazole Sodium 20 MG Tablet PO (08:54)
[2020-10-29] MEDS: Sertraline 50 MG Tablet 25 MG PO (08:54)
[2020-10-29] MEDS: BRIMONIDINE 0.2% 5ML BOTTLE 1 DRP OPHTHALMIC ×2 (08:57→20:36)
[2020-10-29] MEDS: Dorzolamide HCL/Timolol 10 ml Bottle 1 DRP OPHTHALMIC ×2 (08:58→20:36)
[2020-10-29] MEDS: 0.9% Normal Saline 1,000 ML 50 ML IV (09:08)
[2020-10-29 09:14] LABS: Magnesium 1.7 mg/dL (1.6-2.6)
[2020-10-29] MEDS: oxyCODONE CR 15 MG Tablet PO ×2 (10:44→20:37)
--- NOTE | 2020-10-29 11:48 | CASEMGMT ---
Social Work Note Per senior sales consultant questions, pt has not completed HCPOA or LW. Mireya Garvin REGIONAL SALES EXECUTIVE, CAD TECHNICIAN
--- NOTE | 2020-10-29 12:10 | PCM.PN.HOSP ---
Subjective Subjective Patient was seen and examined. Overnight, his pain was not controlled adequately. He was tachycardic. He denied any fever or chills. Objective Data Objective Data Vital Signs: Vital Signs Temp Pulse Resp BP Pulse Ox 98.5 F 98 20 H 114/78 99 10/29/20 11:55 10/29/20 11:55 10/29/20 11:55 10/29/20 11:55 10/29/20 11:55 Oxygen Flow Rate (L/min) 3 Oxygen Delivery Method Nasal Cannula Weight: 119.431 kg Body Mass Index (BMI) 38.9 Intake & Output: Intake and Output for Last 24 Hours 10/27/20 10/28/20 10/29/20 23:59 23:59 23:59 Intake Total 1454.25 / 1454.25 495.75 / 495.75 180.83 / 180.83 Output Total 825 / 825 1250 / 1400 550 / 550 Balance 629.25 / 629.25 -754.25 / -904.25 -369.17 / -369.17 Medical Nutrition Assessment Dietitian: Malnutrition Criteria Met Start: 10/25/20 13:27 Freq: Status: Active Protocol: Document 10/25/20 13:41 AG (Rec: 10/25/20 13:41 AG [id number]) Nutrition Malnutrition Evidence of Malnutrition Exists No Intake Problem Inadequate Oral Intake Etiology r/t decreased appetite d/t mouth and generalized pain Signs/Symptoms as evidenced by estimated PO intake meeting <50% of estimated nutritional needs x 4 weeks, unintentional wt loss of 11.7#/4.25% x 4 weeks Status Active Problem Recommendation Dietitian Recommendations/Changes Continue 1999 calorie controlled, consistent carbohydrate diet. Glucerna 120mL TID- will leave on MAY and d/c from diet order as these are duplicate orders. Increase Glucerna to 4x/day if PO intake at meals does not improve. Lab / Micro Data Result Diagrams: 10/29/20 06:02 10/29/20 06:02 Labs: Laboratory Results - last 24 hr 10/28/20 05:28: Iron 21 L, TIBC 159 L, Iron Saturation 13.2 L, Ferritin 345 10/28/20 12:33: Hgb 8.2 L, Hct 28.2 L 10/28/20 18:06: POC Glucose 125 H 10/29/20 00:24: POC Glucose 106 10/29/20 06:02: WBC 10.7, RBC 3.16 L, Hgb 8.4 L, Hct 28.6 L, MCV 90.5, MCH 26.6 L, MCHC 29.4 L, RDW Std Deviation 52.7 H, RDW Coeff of Johanna 15.9 H, Plt Count 344, MPV 8.6, Immature Gran % (Auto) 0.700, Neut % (Auto) 67.5, Lymph % (Auto) 14.6 L, [place] % (Auto) 10.8 H, Eos % (Auto) 6.0 H, Baso % (Auto) 0.4, Absolute Neuts (auto) 7.2, Absolute Lymphs (auto) 1.56, Nucleated RBC % 0 10/29/20 06:02: Sodium 138, Potassium 3.9, Chloride 106, Carbon Dioxide 28.0, Anion Gap 4 L, BUN 23 H, Creatinine 1.28, Estim Creat Clear Calc 56.77, Est GFR (MDRD) Af Amer 72, Est GFR (MDRD) Non-Af 60, BUN/Creatinine Ratio 18.0, Glucose 94, Calcium 8.8, Total Bilirubin 0.30, AST 17, ALT 27, Alkaline Phosphatase 65, Total Protein 6.3 L, Albumin 1.6 L, Globulin 4.7 H, Albumin/Globulin Ratio 0.3 L 10/29/20 06:02: Magnesium 1.7 10/29/20 06:53: POC Glucose 100 Micro: Microbiology 10/24/20 20:20 Wound - Leg, Right Gram Stain - Final 10/24/20 20:20 Wound - Leg, Right Wound Culture - Final Pseudomonas aeroginosa#2 Pseudomonas aeroginosa Corynebacterium striatum Staphylococcus epidermidis 10/24/20 20:20 Wound - Leg, Right Anaerobic Culture - Final No anaerobic bacteria isolated. 10/24/20 16:40 Blood Culture (Wb) - Anticubital Right Blood Culture - Preliminary No growth in 48 hours. 10/24/20 16:25 Blood Culture (Wb) - Left Forearm Blood Culture - Preliminary No growth in 48 hours. 10/26/20 12:00 Mucosa - Nasopharyngeal SARS-CoV-2 Antigen (Rapid) - Final Physical Exam Narrative GENERAL: Alert oriented x3, obese, not pale, not jaundiced, on 2L oxygen HEENT: Atraumatic; EYES; Anicteric, Normal Conjunctiva NECK; supple, normal thyroid, RESPIRATORY: Diminished CARDIOVASCULAR: Regular S1 S2, GI: soft, normoactive bowel sounds, : Area of excoriation involving the scrotal region and perineum EXTREMITIES: Ulceration involving the distal half of the right lower extremity MUSCULOSKELETAL: no muscle waisting NEURO: Diminished sensation from the L2 dermatome downwards Assessment & Plan Assessment/Plan (1) Scrotal ulcer: (2) Inguinal ulcer: (3) Open wound of perineum: (4) Bilateral leg weakness: (5) Adult failure to thrive: (6) Physical deconditioning: (7) HASMUKH (acute kidney injury): (8) Type 2 diabetes mellitus: (9) ADELAIDE (obstructive sleep apnea): (10) GERD (gastroesophageal reflux disease): (11) Chronic kidney disease, stage 3: (12) Morbid obesity: (13) Chronic diastolic (congestive) heart failure: (14) Essential (primary) hypertension: (15) Hyperlipidemia: QUALIFIERS: Hyperlipidemia type: unspecified Qualified Code(s): E78.5 - Hyperlipidemia, unspecified PLAN: 1. 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 Acute infected perineum, gluteal, scrotal decubitus wounds, superficial, stage 2/3, and right lower extremity ulceration/venous stasis ulcer, present on admission Wound cultures growing Pseudomonas. MRSA positive Wound RN following. Plastic surgery and infectious disease following Continue on IV vancomycin and Zosyn Pain control with MS Contin started yesterday as well as Dilaudid 2 mg every 3h. Increase MS Contin to 15 mg p.o. twice daily Continue with stool regimen 3. Anemia of chronic disease/iron deficiency, Hemoglobin is at baseline at 8.4 Will start on po iron 4. Acute kidney injury, superimposed on CKD stage IIIb, creatinine is at the baseline 5. Depression, continue on Zoloft 25 mg daily 6. Diabetes mellitus type II, complicated by neuropathy and nephropathy, Blood sugars are controlled, continue on Lantus with insulin sliding scale 7. Rest of his chronic medical conditions are stable Meds reviewed Charges/Coding Visit Charges Inpatient E&M: 26770 Subs Hosp L3
[2020-10-29 12:11] LABS: Bedside Glucose 127 mg/dL (70-110)
--- NOTE | 2020-10-29 15:26 | CASEMGMT ---
Pt screened with [facility] Palliative Care Screening Tool due to strata 3, pt met criteria. Order received, voicemail left for palliative regarding referral and possible trf to tertiary facility.
--- NOTE | 2020-10-29 17:28 | DS.PCM_ITS ---
Providers Date of Admission: 10/24/20 Date of Discharge: 10/29/20 Primary Care Physician: Dr. 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 Comment: Consult: Vascular Surgery Routine Consulting Provider: Juanjose Aragon Reason for Consult: Infected decubitus EMERGENT Consult: No Notified: Yes Date Notified: 10/24/20 Time Notified: 17:56 Method of Notification: BY Ed Reason For Visit: INFECTED DECUBITUS, HASMUKH Diagnosis Discharge Diagnosis (1) Scrotal ulcer: Status: Acute Code(s): N50.89 - Other specified disorders of the male genital organs (2) Inguinal ulcer: Status: Acute Code(s): L98.499 - Non-pressure chronic ulcer of skin of other sites with unspecified severity (3) Open wound of perineum: Status: Acute (4) Bilateral leg weakness: Status: Acute Code(s): R29.898 - Other symptoms and signs involving the musculoskeletal system (5) Adult failure to thrive: Status: Acute Code(s): R62.7 - Adult failure to thrive (6) Physical deconditioning: Status: Acute Code(s): R53.81 - Other malaise (7) HASMUKH (acute kidney injury): Status: Resolved Code(s): N17.9 - Acute kidney failure, unspecified (8) Type 2 diabetes mellitus: Status: Chronic Code(s): E11.9 - Type 2 diabetes mellitus without complications (9) ADELAIDE (obstructive sleep apnea): Status: Chronic Code(s): G47.33 - Obstructive sleep apnea (adult) (pediatric) (10) GERD (gastroesophageal reflux disease): Status: Chronic Code(s): K21.9 - Gastro-esophageal reflux disease without esophagitis (11) Chronic kidney disease, stage 3: Status: Chronic Code(s): N18.3 - Chronic kidney disease, stage 3 (moderate) (12) Morbid obesity: Status: Chronic Code(s): E66.01 - Morbid (severe) obesity due to excess calories (13) Chronic diastolic (congestive) heart failure: Status: Chronic Code(s): I50.32 - Chronic diastolic (congestive) heart failure (14) Essential (primary) hypertension: Status: Chronic Code(s): I10 - Essential (primary) hypertension (15) Hyperlipidemia: Status: Chronic Code(s): E78.5 - Hyperlipidemia, unspecified Qualifiers: Hyperlipidemia type: unspecified Qualified Code(s): E78.5 - Hyperlipidemia, unspecified Medications at Discharge Home Medications brimonidine 0.2 % eye drops 1 drp OPHTHALMIC BID ml 05/04/18 dorzolamide 2 %-timolol 0.5 % (PF) eye drops 1 drp OPHTHALMIC BID 05/04/18 omeprazole 20 mg capsule,delayed release 20 mg PO DAILY 05/04/18 tamsulosin 0.4 mg capsule 0.4 mg PO DAILY 05/30/18 latanoprost 0.005 % eye drops 1 drp OPHTHALMIC QPM 09/06/18 acetaminophen 650 mg PO Q6H PRN PRN tab 11/15/18 albuterol sulfate 2.5 mg INHALATION Q2H PRN PRN vial.neb. 11/15/18 fluticasone propionate 2 spray NASAL BID PRN nasal.sry 11/15/18 ipratropium-albuterol 3 ml INHALATION Q6HWA.RT 11/15/18 oxygen MISCELLANEOUS 12/06/18 cholecalciferol (vitamin D3) 1,250 mcg (50,000 unit) tablet 50,000 unit PO QWEEK #10 tab 02/04/19 tramadol 50 mg tablet 50 mg PO .QID tab 02/04/19 hydralazine 50 mg tablet 50 mg PO TID tab 08/28/19 labetalol 200 mg tablet 200 mg PO TID tab 08/28/19 sildenafil 100 mg tablet 100 mg PO DAILY PRN tab 08/28/19 losartan 100 mg tablet 100 mg PO DAILY #90 tab 03/04/20 testosterone cypionate 100 mg/mL intramuscular oil 50 mg IM Q2W #5 ml 03/23/20 mometasone-formoterol HFA 100 mcg-5 mcg/actuation aerosol inhaler 2 puff INHALATION Q12H #13 g 06/01/20 tiotropium bromide 2.5 mcg/actuation mist for inhalation 2 puff INHALATION DAILY #4 g 06/01/20 Lift Chair #1 ea 07/03/20 gabapentin 10 % topical cream in packet 1 applic TOPICAL BID #30 gm 07/03/20 furosemide 40 mg tablet 40 mg PO BID #180 tab 08/07/20 diclofenac sodium [Voltaren] 75 mg PO BID PRN 09/08/20 triamcinolone acetonide [Triderm] 1 applic TOPICAL PRN PRN 09/08/20 sitagliptin 100 mg tablet 100 mg PO DAILY #90 tab 09/30/20 Hospital Course Operations None Procedures None Summary of Care Provided Minutes Spent on Discharge: 55 Hospital Course: 65-year-old male with past medical history of 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 Patient uses a forearm crutch and walker at baseline. Patient does not have a primary neurologist that he follows with. He had an outpatient right open carpal tunnel release surgery done on 09/29/20. Postprocedure when he go home he noticed that he had swelling of his lips and was progressively weak. He thinks he probably reacted to some of anesthetic agents. He has been progressively very weak to the point that he is bedbound. He lives at home with his who is his primary caregiver. He uses a chair left in the house to go from floor to floor. Over the last few weeks he has developed significant scrotal swelling and has been having skin breakdown in the perineum and genitalia. At baseline, patient has a chronic right lower leg wound believed to be chronic venous ulcer for which he was going to the wound clinic but stopped going over the last 2 years. This wound has also gotten progressively worse. In the emergency department, patient was found to have a white cell count of 12.4, hemoglobin 9.3 which is chronic for him. His creatinine was elevated at 2.25. His BUN was 53. His lactic acid was normal. Physical exam was significant for severe excoriation/maceration of his perineum, gluteal and bilateral upper thigh regions. Patient admits to not being able to have his incontinence pads changed frequently because he was alone with his . He was admitted to the [facility], plastic surgery was consulted. Patient had an MRI of the lumbar spine to evaluate for the etiology for his acute decompensation. MRI results showed multilevel degenerative changes but no signs of acute cord compression. Teleneurology was consulted on patient as there was no physical neurologist in- house. There was concern for possible GBS flare. Patient was continued on IV vancomycin and Zosyn. Infectious disease were consulted. Plastic surgery and wound RN followed patient in house. Patient continued to be very painful with dressing changes. Plastic surgery re commended also tertiary transfer to for further evaluation of options of management for his multiple wounds. Patient was started on an ET mix formulation with stoma paste, Aquaphor, and 2% lidocaine on the day of discharge. He needs evaluation by in-house neurologist. He would definitely need subacute rehab at discharge. Physical Exam Narrative GENERAL: Alert oriented x3, obese, not pale, not jaundiced, on 2L oxygen HEENT: Atraumatic; EYES; Anicteric, Normal Conjunctiva NECK; supple, normal thyroid, RESPIRATORY: Diminished CARDIOVASCULAR: Regular S1 S2, GI: soft, normoactive bowel sounds, : Area of excoriation involving the scrotal region and perineum EXTREMITIES: Ulceration involving the distal half of the right lower extremity MUSCULOSKELETAL: no muscle waisting NEURO: Diminished sensation from the L2 dermatome downwards Medical Records Data Medical Nutrition Assessment Dietitian: Malnutrition Criteria Met Start: 10/25/20 13:27 Freq: Status: Active Protocol: Document 10/25/20 13:41 (Rec: 10/25/20 13:41 [id number]) Nutrition Malnutrition Evidence of Malnutrition Exists No Intake Problem Inadequate Oral Intake Etiology r/t decreased appetite d/t mouth and generalized pain Signs/Symptoms as evidenced by estimated PO intake meeting <50% of estimated nutritional needs x 4 weeks, unintentional wt loss of 11.7#/4.25% x 4 weeks Status Active Problem Recommendation Dietitian Recommendations/Changes Continue 1999 calorie controlled, consistent carbohydrate diet. Glucerna 120mL TID- will leave on MAR and d/c from diet order as these are duplicate orders. Increase Glucerna to 4x/day if PO intake at meals does not improve. Weight / BMI Weight Weight: 119.431 kg Body Mass Index (BMI) 38.9 ABG / Lab / Microbiology Data Result Diagrams: 10/29/20 06:02 10/29/20 06:02 Laboratory: Laboratory Results - last 24 hr 10/28/20 18:06: POC Glucose 125 H 10/29/20 00:24: POC Glucose 106 10/29/20 06:02: WBC 10.7, RBC 3.16 L, Hgb 8.4 L, Hct 28.6 L, MCV 90.5, MCH 26.6 L, MCHC 29.4 L, RDW Std Deviation 52.7 H, RDW Coeff of Johanna 15.9 H, Plt Count 344, MPV 8.6, Immature Gran % (Auto) 0.700, Neut % (Auto) 67.5, Lymph % (Auto) 14.6 L, [place] % (Auto) 10.8 H, Eos % (Auto) 6.0 H, Baso % (Auto) 0.4, Absolute Neuts (auto) 7.2, Absolute Lymphs (auto) 1.56, Nucleated RBC % 0 10/29/20 06:02: Sodium 138, Potassium 3.9, Chloride 106, Carbon Dioxide 28.0, Anion Gap 4 L, BUN 23 H, Creatinine 1.28, Estim Creat Clear Calc 56.77, Est GFR (MDRD) Af Amer 72, Est GFR (MDRD) Non-Af 60, BUN/Creatinine Ratio 18.0, Glucose 94, Calcium 8.8, Total Bilirubin 0.30, AST 17, ALT 27, Alkaline Phosphatase 65, Total Protein 6.3 L, Albumin 1.6 L, Globulin 4.7 H, Albumin/Globulin Ratio 0.3 L 10/29/20 06:02: Magnesium 1.7 10/29/20 06:53: POC Glucose 100 10/29/20 12:03: POC Glucose 127 H Microbiology: Microbiology 10/24/20 20:20 Wound - Leg, Right Gram Stain - Final 10/24/20 20:20 Wound - Leg, Right Wound Culture - Final Pseudomonas aeroginosa#2 Pseudomonas aeroginosa Corynebacterium striatum Staphylococcus epidermidis 10/24/20 20:20 Wound - Leg, Right Anaerobic Culture - Final No anaerobic bacteria isolated. 10/24/20 16:40 Blood Culture (Wb) - Anticubital Right Blood Culture - Preliminary No growth in 48 hours. 10/24/20 16:25 Blood Culture (Wb) - Left Forearm Blood Culture - Preliminary No growth in 48 hours. 10/26/20 12:00 Mucosa - Nasopharyngeal SARS-CoV-2 Antigen (Rapid) - Final D/C Instructions Discharge Diet: Low fat / Low cholesterol, 2000 Calorie Control Diet and 2000 mg Sodium Diet Meaningful Use Info Meaningful Use Diagnoses (Choose all that apply): None applicable Discharge Plan Admission Admit Date/Time: 10/24/20 17:58 Primary Reason for Your Visit: Multiple perineal ulcers, right leg ulcer Attending Provider: Tash Levine Primary Care Provider: Alex Pedersen Consulting Providers: Juanjose Aragon ; Zhen Diaz Discharge Orders/Prescriptions Prescriptions: No Action tramadol 50 mg tablet 50 mg PO .QID RF: 0 omeprazole 20 mg capsule,delayed release(DR/EC) 20 mg PO DAILY RF: 0 dorzolamide-timolol (PF) 2-0.5 % drops 1 drp OPHTHALMIC BID RF: 0 brimonidine 0.2 % drops 1 drp OPHTHALMIC BID RF: 0 tamsulosin 0.4 mg capsule 0.4 mg PO DAILY RF: 0 latanoprost 0.005 % drops 1 drp OPHTHALMIC QPM RF: 0 oxygen miscellaneous RF: 0 cholecalciferol (vitamin D3) 50,000 unit tablet 50,000 unit PO QWEEK Qty: 10 RF: 0 sildenafil 100 mg tablet 100 mg PO DAILY PRN (Reason: OTHER) RF: 0 Dulera 100-5 mcg/actuation HFA aerosol inhaler 2 puff INHALATION Q12H Qty: 13 RF: 5 Spiriva Respimat 2.5 mcg/actuation mist 2 puff INHALATION DAILY Qty: 4 RF: 5 gabapentin 10 % cream in packet 1 applic TOPICAL BID Qty: 30 RF: 5 (DME) Lift Chair See Rx Instructions .Route .MEDSUPPLY Qty: 1 RF: 0 acetaminophen 325 MG tablet 650 mg PO Q6H PRN PRN (Reason: Non-cardiac pain (mod-severe)) RF: 0 albuterol sulfate 2.5 MG/3 ML solution for nebulization 2.5 mg inhalation Q2H PRN PRN (Reason: dyspnea, wheezing) RF: 0 fluticasone propionate 1 SPRAY spray,suspension 2 spray NASAL BID PRN (Reason: NASAL CONGESTION) RF: 0 ipratropium-albuterol 3 ML solution for nebulization 3 ml inhalation Q6HWA.RT RF: 0 labetalol 200 mg tablet 200 mg PO TID RF: 0 hydralazine 50 mg tablet 50 mg PO TID RF: 0 diclofenac sodium [Voltaren] 75 mg Tablet,Delayed Release (Dr/Ec) 75 mg PO BID PRN (Reason: Pain) RF: 0 triamcinolone acetonide [Triderm] 0.1 % cream 1 applic TOPICAL PRN PRN (Reason: OTHER) RF: 0 losartan 100 mg tablet 100 mg PO DAILY Qty: 90 RF: 3 testosterone cypionate [Depo-Testosterone] 100 mg/mL oil 50 mg IM Q2W Qty: 5 RF: 0 furosemide 40 mg tablet 40 mg PO BID Qty: 180 RF: 3 sitagliptin 100 mg tablet 100 mg PO DAILY Qty: 90 RF: 1 Referrals / Follow Up: Alex Pedersen MD [Primary Care Provider] - Disposition Disposition (needs filled in before D/C Order can be placed): Acute Care Hospital Charges/Coding Visit Charges Inpatient E&M: 77308 Disch Hosp
[2020-10-29] MEDS: Ferrous Sulfate 325 MG Tablet PO (17:29)
[2020-10-29 18:20] LABS: Bedside Glucose 122 mg/dL (70-110)
--- NOTE | 2020-10-29 19:14 | NURSING ---
report called to Madina at [facility], aware that transport is to come at 1930
--- NOTE | 2020-10-29 19:18 | PCM.PN.BLA ---
Progress Note Patient was scheduled for surgery today for excisional debridement of nonhealing infected MRSA diabetic ulcer right leg and ankle. Talked to the patient this morning. He states he is in the process of being transferred to a tertiary center later today and wanted to know if the debridement surgery is urgent. I told him that debridement needs to be done but not urgently. He has had this nonhealing ulcer for a couple of years and wound care and antibiotics can be continued. When he is medically stable from his other co-morbidities, we can readdress the surgery at that time. So today the surgery has been cancelled for now.
[2020-10-29] MEDS: Latanoprost 0.005% 1 Bottle 1 DRP OPHTHALMIC (20:35)
[2020-10-29] MEDS: Senna/Docusate Sodium 1 Tablet 2 TABLET PO (20:37)
[2020-10-29] MEDS: Vancomycin IV 1,000 MG/200 ML BAG 200 MG IV (20:38)
[2020-10-29 20:57] LABS: Vancomycin, Trough Level 16.2 ug/mL (5.0-15.0)
--- NOTE | 2020-10-29 21:01 | NURSING ---
Taken to from [facility] at 2101.
--- NOTE | 2020-10-30 15:53 | CASEMGMT ---
Jasmin at [facility] aware pt was trf'd to per tc.
== END 2020-10-29 21:05 | disposition short-term general hospital (02) | DRG 637 ==
LOC: ED 16:39 → MS3 18:12
PROVIDERS: Admitting Provider Internal Medicine; Emergency Provider Emergency Medicine; PCP Internal Medicine; Visit Provider Internal Medicine
DX: E11.622 Type 2 diabetes mellitus with other skin ulcer (principal); L89.893 Pressure ulcer of other site, stage 3; I13.0 Hypertensive heart and chronic kidney disease with heart failure and stage 1 through stage 4 chronic kidney disease, or unspecified chronic kidney disease; I50.32 Chronic diastolic (congestive) heart failure; Z68.41 Body mass index [BMI] 40.0-44.9, adult; L97.812 Non-pressure chronic ulcer of other part of right lower leg with fat layer exposed; N17.9 Acute kidney failure, unspecified; K21.9 Gastro-esophageal reflux disease without esophagitis; G47.33 Obstructive sleep apnea (adult) (pediatric); E11.22 Type 2 diabetes mellitus with diabetic chronic kidney disease; E66.01 Morbid (severe) obesity due to excess calories; E78.5 Hyperlipidemia, unspecified; B95.62 Methicillin resistant Staphylococcus aureus infection as the cause of diseases classified elsewhere; B96.5 Pseudomonas (aeruginosa) (mallei) (pseudomallei) as the cause of diseases classified elsewhere; E11.40 Type 2 diabetes mellitus with diabetic neuropathy, unspecified; L98.491 Non-pressure chronic ulcer of skin of other sites limited to breakdown of skin; M19.90 Unspecified osteoarthritis, unspecified site; J44.9 Chronic obstructive pulmonary disease, unspecified; I87.2 Venous insufficiency (chronic) (peripheral); I27.21 Secondary pulmonary arterial hypertension; R62.7 Adult failure to thrive; N40.0 Benign prostatic hyperplasia without lower urinary tract symptoms; R53.1 Weakness; N18.32 Chronic kidney disease, stage 3b; Z87.891 Personal history of nicotine dependence; Z79.899 Other long term (current) drug therapy; D63.8 Anemia in other chronic diseases classified elsewhere; F32.9 Major depressive disorder, single episode, unspecified
CPT/HCPCS: 36415; 71045; 72148; 80048; 80053; 80202; 81001; 82728; 82962; 83036; 83540; 83550; 83605; 83735; 83880; 84134; 84484; 85014; 85018; 85025; 85610; 85730; 86140; 87040; 87070; 87075; 87184; 87186; 87205; 87426; 87640; 93005; 94640; 94660; 97110; 97162; 97166; 97535; 97802; 97803; 99251; 99285; J7030; J7040; J7050; A4216; G0463

== ENCOUNTER 2020-12-20 21:34 | Inpatient (IN) | payer MEDICARE, OTHER, SELFPAY ==
[2020-12-20 21:45] VITALS: BP 120/75; PULSE 74; RESP 18; O2SAT 99
--- NOTE | 2020-12-20 21:48 | HP.PCM_ITS ---
HPI - General General Date of Admission: 12/20/20 HPI Narrative PRECIOUS CHI, is a 65 Male with below past medical history with following: Hospitalized at [facility] from 10/29/2020 to 11/12/2020 for worsening weakness. 11/02/2020 MRI showed thoracic spine stenosis, Orthopedic spine consulted. CT chest showed Type B aortic dissection, Vascular consulted. 11/04/2020 IVC filter placed. 11/12/2020 Admit to [facility] for rehabilitation. Hospitalization for hypoxia, venous stasis ulcers of right leg. 12/04/2020 Wound cultures grew ESBL Klebsiella pneumoniae, Enterococcus Faecalis, Pseudomonas Aeruginosa. Klebsiella urinary tract infection. Vancomycin, Meropenem IV for cellulitis of leg. Infectious Disease consulted for cellulitis of leg. Antibiotics stopped. 12/16/2020 Admit to [facility] for hypoxia. 12/20/2020 Admit to TCU with debility, here for rehabilitation, strengthening, prior to discharge home with . Available medical records limited. [facility] Medical History Acute respiratory failure with hypoxia and hypercapnia Anemia Arthritis aspiration of left knee Bilateral pulmonary infiltrates on CXR BPH (benign prostatic hyperplasia) Bradycardia Cardiology follow-up encounter Chronic cutaneous venous stasis ulcer Chronic diastolic (congestive) heart failure Chronic kidney disease, stage 3 Chronic venous insufficiency Chronic venous stasis dermatitis COPD (chronic obstructive pulmonary disease) Debility Diabetes Disability of walking Essential (primary) hypertension Excoriation of multiple sites (~07/2020) Former smoker Generalized weakness GERD (gastroesophageal reflux disease) Glaucoma 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 History of CHF (congestive heart failure) History of edema History of GI bleed History of renal disease History of ulceration Hx of cataract Hyperlipidemia Hypertension Kidney stones Lip swelling Low testosterone in male Lower extremity weakness Morbid obesity MRSA (methicillin resistant Staphylococcus aureus) infection Non-healing ulcer of multiple sites, limited to breakdown of skin Normocytic anemia Obesity ADELAIDE (obstructive sleep apnea) Osteoarthritis Pressure ulcer Pseudomonas aeruginosa infection Secondary pulmonary arterial hypertension Shortness of breath Shortness of breath on exertion Sleep apnea Stage 2 moderate COPD by GOLD classification Thoracic aortic aneurysm without rupture Tobacco use Type 2 diabetes mellitus Ulcer of right lower extremity Wears glasses Home Medications brimonidine 0.2 % eye drops 1 drp OPHTHALMIC BID ml 05/04/18 [History Last Taken Unknown] dorzolamide 2 %-timolol 0.5 % (PF) eye drops 1 drp OPHTHALMIC BID 05/04/18 [History Last Taken Unknown] omeprazole 20 mg capsule,delayed release 20 mg PO DAILY 05/04/18 [History Last Taken Unknown] tamsulosin 0.4 mg capsule 0.4 mg PO DAILY@0800 05/30/18 [History Last Taken Unknown] latanoprost 0.005 % eye drops 1 drp OPHTHALMIC QPM 09/06/18 [History Last Taken Unknown] oxygen MISCELLANEOUS 12/06/18 [History Last Taken Unknown] cholecalciferol (vitamin D3) 1,250 mcg (50,000 unit) tablet 50,000 unit PO QWEEK #10 tab 02/04/19 [Rx Last Taken Unknown] labetalol 200 mg tablet 200 mg PO 0600,1200,2200 tab 08/28/19 [History Last Taken Unknown] Lift Chair #1 ea 07/03/20 [Rx Last Taken Unknown] furosemide 40 mg tablet 40 mg PO BID #180 tab 08/07/20 [Rx Last Taken Unknown] B.ani-L.aci-L.yoana-L.plan-L.zayda [Probiotic Formula] 1 cap PO BID 12/20/20 [History Last Taken Unknown] acetaminophen 650 mg PO Q8H PRN PRN 12/20/20 [History Last Taken Unknown] albuterol sulfate 2.5 mg INHALATION Q6H PRN PRN 12/20/20 [History Last Taken Unknown] budesonide 0.5 mg INHALATION BID 12/20/20 [History Last Taken Unknown] diphenhydramine HCl 25 mg PO Q4H PRN 12/20/20 [History Last Taken Unknown] docusate sodium 100 mg PO BID 12/20/20 [History Last Taken Unknown] ferrous sulfate 325 mg PO TIDCM 12/20/20 [History Last Taken Unknown] fluticasone propion-salmeterol [Wixela Inhub] 1 inh INHALATION BID 12/20/20 [History Last Taken Unknown] guaifenesin 600 mg PO BID 12/20/20 [History Last Taken Unknown] linagliptin [Tradjenta] 5 mg PO DAILY@0800 12/20/20 [History Last Taken Unknown] loratadine 10 mg PO DAILY@0800 12/20/20 [History Last Taken Unknown] montelukast 10 mg PO QHS 12/20/20 [History Last Taken Unknown] multivitamin,pv-sxha-Kh-FA-min [Multivitamin And Mineral] 1 tab PO DAILY@0800 [History Last Taken Unknown] oxycodone 15 mg PO Q3H PRN 12/20/20 [History Last Taken Unknown] pantoprazole [Protonix] 40 mg PO BID 12/20/20 [History Last Taken Unknown] pramoxine-mineral oil-zinc [Anusol] 1 ea TOPICAL TID PRN PRN 12/20/20 [History Last Taken Unknown] pregabalin 50 mg PO 0600,2100 12/20/20 [History Last Taken Unknown] sertraline 25 mg PO DAILY@0800 12/20/20 [History Last Taken Unknown] tiotropium bromide [Spiriva Respimat] 2 puff INHALATION DAILY 12/20/20 [History Last Taken Unknown] Allergy/AdvReac Type Severity Reaction Status Date / Time lisinopril Allergy Severe Angioedema Verified 10/24/20 15:56 Sulfa (Sulfonamide AdvReac Other Verified 10/24/20 15:56 Antibiotics) chapstick Allergy swelling Uncoded 10/24/20 15:56 Family History Father Cancer Mother Asthma Surgical History History of carpal tunnel surgery of right wrist History of cataract extraction Social History (Updated 12/20/20 @ 21:[address] Dl Turcios MD) household members: spouse Smoking Status: Former smoker second hand exposure: No alcohol intake: current alcohol intake frequency: a few times a week substance use type: does not use caffeine: No what type of physical activity do you participate in: none ROS Constitutional Constitutional: Denies chills, fever(s) or weight gain ENT HEENT: Denies headache(s), nasal congestion or nasal discharge Cardiovascular Cardiovascular: Denies chest pain or palpitations Respiratory/Chest Respiratory/Chest: Denies cough, excessive phlegm production or shortness of breath with exertion Gastrointestinal Gastrointestinal: Denies abdominal pain, nausea or vomiting Genitourinary Genitourinary: Denies dysuria Musculoskeletal Musculoskeletal: Denies joint pain or joint swelling Integumentary Integumentary: Denies rash or wounds Neurologic Neurologic: Denies focal weakness, numbness or tingling Psychiatric Psychiatric: Reports auditory hallucinations; Denies anxiety, depression, delano icidal ideation or suicidal ideation Physical Exam Const alert and oriented x3 General Appearance: cooperative HEENT normocephalic Eyes PERRL and EOMs intact bilaterally Neck supple, no JVD and no carotid bruits Resp normal respiratory effort, normal air movement and clear to auscultation bilaterally Cardio regular rate and regular rhythm GI normal to inspection, nondistended, normoactive bowel sounds, non-tender and non-distended GI Narrative: Indwelling sanchez catheter. Extremity normal capillary refill General Extremity: Negative for edema Skin no rashes or lesions noted Skin Narrative: Sacral ulcer, right lower extremity ulcer per wound nurse General Skin Exam: no breakdown Psych affect normal Appearance: appropriate Results Lab / Micro Data Result Diagrams: 12/21/20 05:24 12/21/20 05:24 Assessment & Plan Assessment/Plan (1) Debility: (2) Cellulitis of leg: (3) Venous stasis ulcer: (4) Sacral pressure ulcer: (5) Glaucoma: (6) Gastroesophageal reflux disease: (7) Benign prostate hyperplasia: (8) Chronic obstructive pulmonary disease: (9) Vitamin D deficiency: (10) Hypertension: (11) Pulmonary hypertension: (12) Hypogonadism: (13) Diabetes mellitus: (14) Guillain-Lookout syndrome following vaccination: (15) Obstructive sleep apnea: (16) Chronic pulmonary embolism: PLAN: 65 year old male with below past medical history hospitalized for hypoxia, admitted to TCU with debility, here for rehabilitation, strengthening, prior to discharge home with . * Debility - PT/OT. * Pain - Tylenol 1000mg Q6H prn pain (1-6), Oxycodone 15mg Q3H prn pain (7-10). * Bowel - Miralax 17gm daily, Senna/colace 1 tablet twice daily, Dulcolax 10mg daily PRN. * Adult immunization - Administer prevnar 13, pneumovax 23, fluzone, covid19 vaccine as appropriate. * DVT prophylaxis - Hold, anemia. * COPD - Budesonide 0.5mg twice daily, Albuterol 2.5mg nebulized Q6H prn. * Glaucoma - Brimonidine 1gtt ou twice daily, Latanoprost 1gtt ou qpm. * Pruritus - Benadryl 25mg Q4H PRN. * Vitamin D deficiency - Vitamin D 1.25mg per week. * Iron deficiency anemia - Ferrous sulfate 325mg tid. * Chronic diastolic heart failure - Labetalol 200mg tid, Lasix 40mg daily. * Congestion - Mucinex 600mg bid. * Rectal pain - HC 2.5% cream tid prn. * GI prophylaxis - Lactobacillus 1 tablet twice daily. * Diabetes Mellitus II - Tradjenta 5mg daily. * Allergic Rhinitis - Loratadine 10mg, Singulair 10mg QHS. * Nutrition - MVI daily. * Tinea corporis - Nystatin powder topical twice daily. * GERD - Pantoprazole 40mg twice daily. * Diabetic polyneuropathy - Lyrica 50mg twice daily. 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 * BPH/urinary retention - Tamsulosin 0.4mg daily, indwelling sanchez catheter. * Sacral wound, right lower extremity wound - wound nurse * Hypokalemia - K 3.3, KCL 20meq x 1 dose, then daily, repeat BMP in 2 days. * Thoracic spinal stenosis - surgery with Dr. Rodriguez at when stable. * Thoracic aortic dissection - stable.
[2020-12-20 21:56] VITALS: PULSE 74; RESP 18; O2SAT 99; BMI 39.8
[2020-12-20] MEDS: oxyCODONE 5 MG Tablet 15 MG PO (22:48)
[2020-12-20] MEDS: Pregabalin 50 MG Capsule PO (23:01)
[2020-12-20 23:16] LABS: Bedside Glucose 75 mg/dL (70-110)
[2020-12-21] VITALS (7 sets, daily range): BP systolic 101–125; BP diastolic 63–79; PULSE 77–112; RESP 16–20; TEMP 37; O2SAT 94–97
--- NOTE | 2020-12-21 02:45 | EKG12_ITS ---
Test Reason : CP Blood Pressure : / mmHG Vent. Rate : 082 BPM Atrial Rate : 082 BPM P-R Int : 182 ms QRS Dur : 082 ms QT Int : 374 ms P-R-T Axes : 047 -21 047 degrees QTc Int : 436 ms Sinus rhythm with Premature atrial complexes Septal infarct (cited on or before 28-OCT-2020) Abnormal ECG When compared with ECG of 29-OCT-2020 08:48, No significant change was found Confirmed by JANEL HOLDER, JJ ([id number]), publishing editor BERKLEY MCARTHUR ([id number]) on 12/30/2020 10:03:48 AM Referred By: ADELAIDA Confirmed By:JJ ISLAS MD
--- NOTE | 2020-12-21 03:38 | NURSING ---
Patient called out around 0300 saying he didn't feel right and felt short of breath. In room to assess patient, oxygen level 95% on CPAP w/ 2L 02, he says he feels his breathing is tight, denies chest pain. Pulse tachy and slightly irregular. BP 114/63. Patient says he has trouble with SVT. RT called for EKG which appears similar to multiple previous EKGs, shows some PACs and rate of 82. By time EKG completed patient said he felt normal and tightness had resolved. Patient resting comfortably at this time, will continue to monitor.
[2020-12-21] MEDS: BRIMONIDINE 0.2% 5ML BOTTLE 1 DRP EACH EYE ×2 (05:35→17:21)
[2020-12-21] MEDS: Furosemide 40 MG Tablet PO (05:36)
[2020-12-21] MEDS: guaiFENesin 600 MG Tablet PO ×2 (05:36→17:21)
[2020-12-21] MEDS: Docusate Sodium 100 MG Capsule PO (05:36)
[2020-12-21] MEDS: Labetalol 200 MG Tablet PO ×2 (05:49→20:45)
[2020-12-21] MEDS: Pantoprazole Sodium 40 MG Tablet PO ×2 (05:50→17:21)
[2020-12-21] MEDS: Pregabalin 50 MG Capsule PO ×2 (05:50→20:44)
[2020-12-21] MEDS: oxyCODONE 5 MG Tablet 15 MG PO ×4 (05:56→20:27)
[2020-12-21] MEDS: Nystatin Powder 15gm Bottle 1 APPLIC TOPICAL ×2 (06:00→17:25)
[2020-12-21 06:15] LABS: Absolute Lymphocyte Count 1.91 X10^3/uL (0.83-4.51); Absolute Neutrophil Count 7.1 X10^3/uL (2.0-7.7); Basophil# 0.03 X10^3/uL; Basophil% 0.3 % (0-1); Eosinophil# 0.56 X10^3/uL; Eosinophils% 5.5 % (0-5); Hematocrit 28.3 % (40-54); Hemoglobin 8.6 g/dL (13.0-16.5); Lymphocyte # 1.91 X10^3/ul (0.83-4.51); Lymphocyte % 18.8 % (19-41); Mean Corp Hgb Conc 30.4 g/dL (32-36); Mean Corpuscular Hgb 27.4 pg (27.0-32.0); Mean Corpuscular Volume 90.1 fL (80-94); Mean Platelet Vol. 9.5 fl (6.2-12.0); Monocyte# 0.58 X10^3/uL; Monocyte% 5.7 % (0-10); NRBC Flagged by Analyzer 0 % (0-5); Neutrophil # 7.05 X10^3/uL (2.7-7.7); Neutrophil % 69.3 % (47-70); Platelet Count 389 K/mm3 (150-450); RBC Distribution Width CV 17.2 % (11.6-14.6); RBC Distribution Width SD 56.8 fl (35.1-43.9); Red Blood Count 3.14 M/mm3 (4.6-6.2); White Blood Count 10.2 K/mm3 (4.4-11.0)
[2020-12-21 06:16] LABS: Bedside Glucose 126 mg/dL (70-110)
[2020-12-21 06:37] LABS: Anion Gap 3 (5-15); BUN 12 mg/dL (7-18); BUN/Creat Ratio 11.3 RATIO (10-20); Chloride 97 mmol/L (98-107); Creatinine, Serum 1.06 mg/dL (0.70-1.30); EST Glomerular Filtration Rate 74 mL/min (>60); Est Glom Filt Rate - Afr Amer 90 mL/min (>60); Estimated Creatinine Clearance 68.55 ml/min; Glucose 104 mg/dL (74-106); Potassium 3.3 mmol/L (3.5-5.1); Sodium Level 139 mmol/L (136-145)
[2020-12-21] MEDS: Budesonide Respules 0.5 MG/2 ML AMPUL.NEB. INHALATION ×2 (07:06→18:18)
[2020-12-21] MEDS: Ferrous Sulfate 325 MG Tablet PO (07:44)
[2020-12-21] MEDS: Sertraline 50 MG Tablet 25 MG PO (07:44)
[2020-12-21] MEDS: LINAGLIPTIN 5 MG TABLET PO (07:44)
[2020-12-21] MEDS: Tamsulosin HCl 0.4 MG Capsule PO (07:44)
[2020-12-21] MEDS: Multivitamins,Ther W-Minerals Tablet 1 TABLET PO (07:44)
[2020-12-21] MEDS: Loratadine 10 MG Tablet PO (07:47)
[2020-12-21] MEDS: Potassium Chloride Oral Tablet 20 MEQ PO (09:31)
--- NOTE | 2020-12-21 10:45 | CASEMGMT ---
Social Work Met with patient for initial assessment. Discussed code status. Confirmed full code. MOLST form completed, communication to , placed in chart. Explained Medicare benefits. Encouraged to contact secondary insurance to ensure copay coverage. Patient's goal is to return home with at [facility]. Pt has cpap and O2 through [employer]. SW to continue to follow for DC planning. Lidia Patel, CREDIT RISK MANAGER [employer]
[2020-12-21 10:51] LABS: Bedside Glucose 110 mg/dL (70-110)
[2020-12-21 10:51] LABS: Bedside Glucose 156 mg/dL (70-110)
[2020-12-21] MEDS: Glucerna Shake 120 ML LIQUID PO (11:41)
--- NOTE | 2020-12-21 12:50 | NURSING ---
Addendum entered by Caro Blank 12/21/20 14:21: Notified Dr. Turcios of patient's request for the below items. Received order to add all these items. Original Note: Pt started on iron supplement for hgb 8.6, pt refused iron supplement stating he had blood work done at the other hospital which showed he has enough iron in his blood but has an iron utilizing problem, Iron supplement was discontinued. K+ 3.3 pt started on KDur, Pt requesting aquaphor for dry skin, scheduled Dilaudid before PT and dressing changes, wants to keep oxy IR 15mg Q3H prn for pain states that was his regimen at the other hospital and worked well for him, Pt requesting senna and miralax be changed to PRN d/t extensive peritoneal area wounds, requesting anusol suppositories prn for hemorrhoids, pt is requesting biological occult stool stating to test DNA in stool to locate source of potential problem so hemorrhoids do not interfere. Pt also requesting an xray to right wrist d/t increased pain and stiffness s/p carpal tunnel surgery. Pt refused TB test stating he has an allergy to TB and had an xray at the other hospital stating the results were fine I don't have TB. Message left for Dr. Turcios updating on pt requests, and suggested [facility] lab draw to rule out TB per policy. Charge nurse aware.
--- NOTE | 2020-12-21 14:12 | WOUNDNOTE ---
wound photo: right lower leg
--- NOTE | 2020-12-21 14:13 | WOUNDNOTE ---
wound photo: right lower leg
--- NOTE | 2020-12-21 14:14 | WOUNDNOTE ---
wound photo: buttocks
--- NOTE | 2020-12-21 14:15 | WOUNDNOTE ---
wound photo: right forearm/elbow area
--- NOTE | 2020-12-21 14:30 | RAD_ITS ---
STUDY: X-RAY - RIGHT WRIST REASON FOR EXAM: Male, 65 years old. Increased pain and stiffness TECHNIQUE: 4 view(s) of the wrist were obtained. COMPARISON: None. FINDINGS: On the lateral radiograph, there is a questionable fragment in the dorsum of the wrist. This could represent triquetral fracture. There is small amount of soft tissue swelling. Otherwise, moderate to severe degenerative changes of the carpal bones with developing SLAC wrist RAD/Wrist min 3 Views IMPRESSION: As above Electronically Signed: Andrew Alejo DO at 0:47 EDT Tel , Service support ,
[2020-12-21] MEDS: HYDROmorphone 2 MG TABLET PO (14:41)
--- NOTE | 2020-12-21 15:10 | PCM.PN.RX ---
Progress Note - Pharmacy Subjective: TCU Admission Objective: Allergies lisinopril Allergy (Severe, Verified 10/24/20 15:56) Angioedema Sulfa (Sulfonamide Antibiotics) Adverse Reaction (Verified 10/24/20 15:56) Other chapstick Allergy (Uncoded 10/24/20 15:56) swelling Current Medications Generic Name Dose Route Start Last Admin Trade Name Freq PRN Reason Stop Dose Admin Acetaminophen 1,000 mg 12/21/20 08:14 Acetaminophen 500 Mg Tablet PO Q6H PRN PRN Pain Score 1-5 Albuterol Sulfate 2.5 mg 12/20/20 22:25 Albuterol 2.5 Mg/3 Ml Vial.Neb. INHALATION Q6H.RT PRN dyspnea, wheezing Bisacodyl 10 mg 12/21/20 08:12 Bisacodyl 5 Mg Tablet PO DAILY PRN Constipation Brimonidine Tartrate 1 drp 12/21/20 06:00 12/21/20 05:35 Brimonidine 0.2% 5ml Bottle EACH EYE 1 drp BID [facility] Administration Budesonide 0.5 mg 12/20/20 22:30 12/21/20 07:06 Budesonide Respules 0.5 Mg/2 Ml Ampul.Neb. INHALATION 0.5 mg BID.RT [facility] Administration Diphenhydramine HCl 25 mg 12/20/20 22:45 Diphenhydramine 25 Mg Capsule PO Q4H PRN PRN Itching Ergocalciferol 1.25 mg 12/25/20 10:00 Ergocalciferol 1.25 Mg (50, 000 Unit) Capsule PO FR [facility] Furosemide 40 mg 12/21/20 06:00 12/21/20 05:36 Furosemide 40 Mg Tablet PO 40 mg DAILY [facility] Administration Guaifenesin 600 mg 12/21/20 06:00 12/21/20 05:36 Guaifenesin 600 Mg Tablet PO 600 mg BID [facility] Administration Hydrocortisone 1 applic 12/21/20 02:30 Hydrocortisone 2.5% Crm TOPICAL TID PRN PRN rectal pain Protocol Hydrocortisone Acetate 25 mg 12/21/20 14:16 Hydrocortisone 25 Mg Suppository RC DAILY PRN PRN Hemorrhoids Hydromorphone HCl 2 mg 12/21/20 14:13 12/21/20 14:41 Hydromorphone 2 Mg Tablet PO 2 mg Q3H PRN PRN Administration Pain Score 6-10 Labetalol HCl 200 mg 12/21/20 06:00 12/21/20 11:46 Labetalol 200 Mg Tablet PO Not Given 0600,1200,2200 [facility] Lactobacillus Acidophilus 1 tablet 12/21/20 06:00 12/21/20 05:34 Lactobacillus Acidophilus PO 01/04/21 06:01 1 tablet BID [facility] Administration Latanoprost 1 drp 12/21/20 21:00 Latanoprost 0.005% 1 Bottle OPHTHALMIC QPM [facility] Linagliptin 5 mg 12/21/20 08:00 12/21/20 07:44 Linagliptin 5 Mg Tablet PO 5 mg DAILY@0800 [facility] Administration Loratadine 10 mg 12/21/20 08:00 12/21/20 07:47 Loratadine 10 Mg Tablet PO 10 mg DAILY@0800 [facility] Administration Montelukast Sodium 10 mg 12/21/20 22:00 Montelukast 10 Mg Tablet PO QHS [facility] Multi-Ingredient Ointment 1 applic 12/21/20 09:00 Mineral Oil/Petrolatum Cr 1.75oz Bottle TOPICAL DAILY PRN PRN Dry Skin Protocol Multivitamins/Minerals 1 tablet 12/21/20 08:00 12/21/20 07:44 Multivitamins,Ther W-Minerals Tablet PO 1 tablet BREAKFAST [facility] Administration Nutritional Formula (Lactose Free) 120 ml 12/21/20 12:45 12/21/20 11:41 Glucerna Shake 120 Ml Liquid PO 120 ml TIDCM [facility] Administration Nystatin 1 applic 12/21/20 06:00 12/21/20 06:00 Nystatin Powder 15gm Bottle TOPICAL 1 applic BID [facility] Administration Protocol Pantoprazole Sodium 40 mg 12/21/20 06:00 12/21/20 05:50 Pantoprazole Sodium 40 Mg Tablet PO 40 mg BID [facility] Administration Polyethylene Glycol 17 gm 12/21/20 08:15 12/21/20 09:34 Polyethylene Glycol 3350 17 Gm Packet PO Not Given DAILY [facility] Potassium Chloride 20 meq 12/22/20 08:00 Potassium Chloride Oral Tablet 20 Meq PO DAILYCM [facility] Pregabalin 50 mg 12/21/20 06:00 12/21/20 05:50 Pregabalin 50 Mg Capsule PO 50 mg 0600,2100 [facility] Administration Senna/Docusate Sodium 1 tablet 12/21/20 14:20 Senna/Docusate Sodium 1 Tablet PO BID PRN Constipation Sertraline HCl 25 mg 12/21/20 08:00 12/21/20 07:44 Sertraline 50 Mg Tablet PO 25 mg DAILY@0800 [facility] Administration Tamsulosin HCl 0.4 mg 12/21/20 08:00 12/21/20 07:44 Tamsulosin Hcl 0.4 Mg Capsule PO 0.4 mg DAILY@0800 [facility] Administration Tuberculin PPD 0.1 ml 12/28/20 10:00 Tuberculin,Purif.Prot.Deriv. 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 (Acute) Diabetes mellitus (Acute) Hypogonadism (Acute) Pulmonary hypertension (Acute) Hypertension (Chronic) Vitamin D deficiency (Acute) Chronic obstructive pulmonary disease (Chronic) Benign prostate hyperplasia (Acute) Gastroesophageal reflux disease (Acute) Glaucoma (Acute) Sacral pressure ulcer (Acute) Venous stasis ulcer (Acute) Cellulitis of leg (Acute) Debility (Acute) Vital Signs Pulse Resp BP Pulse Ox 104 H 18 101/69 96 12/21/20 11:48 12/21/20 11:48 12/21/20 11:48 12/21/20 11:48 Oxygen Flow Rate (L/min) 3 Oxygen Delivery Method Room Air Weight: 122.271 kg Body Mass Index (BMI) 39.8 Sodium 139 mmol/L (136-145) 12/21/20 05:24 Potassium 3.3 mmol/L (3.5-5.1) L 12/21/20 05:24 Chloride 97 mmol/L (98-107) L 12/21/20 05:24 Carbon Dioxide 39.0 mmol/L (21.0-32.0) H 12/21/20 05:24 Anion Gap 3 (5-15) L 12/21/20 05:24 BUN 12 mg/dL (7-18) 12/21/20 05:24 Creatinine 1.06 mg/dL (0.70-1.30) 12/21/20 05:24 Est GFR (MDRD) Af Amer 90 mL/min (>60) 12/21/20 05:24 Est GFR (MDRD) Non-Af 74 mL/min (>60) 12/21/20 05:24 BUN/Creatinine Ratio 11.3 RATIO (10-20) 12/21/20 05:24 Glucose 104 mg/dL (74-106) 12/21/20 05:24 Assessment/Plan: 1. Pain: acetaminophen 1000mg PO Q6H PRN pain 1-5 and hydromorphone 2mg PO Q3H PRN pain 6-10. Please continue to monitor for increased pain, PRN usage, constipation and respiratory depression. 2. CHF: labetalol 200mg PO TID and furosemide 40mg PO daily. Please continue to monitor BP (last 101/69), HR (last 104), renal function, edema, potassium (last 3.3mmol/L) and sodium (last 139mmol/L). 3. COPD: budesonide 0.5mg inhalation BID and albuterol nebulized solution 2.5mg inhalation Q6H.RT PRN dyspnea/wheezing. Please continue to monitor for thrush and PRN usage. 4. Diabetes mellitus II: linagliptin 5mg PO daily. Please continue to monitor glucose (last 156mg/dL) and hemoglobin A1c (last 6.9% 10/25/20). 5. GERD: pantoprazole 40mg PO BID. Please continue to monitor for S/S of GERD and diarrhea. 6. Diabetic polyneuropathy: pregabalin 50mg PO BID. Please continue to monitor for neuropathy and renal function. 7. BPH/urinary retention: tamsulosin 0.4mg PO daily. Please continue to monitor for hypotension. 8. Hypokalemia: potassium chloride 20mEQ PO DAILYCM. Please continue to monitor potassium levels. 9. Glaucoma: brimonidine 0.2% 1gtt OU BID and latanoprost 0.005% 1gtt OU QPM. Please continue to monitor for S/S of glaucoma. 10. Congestion: guaifenesin 600mg PO BID. Please continue to monitor for congestion. 11. Allergic rhinitis: loratadine 10mg PO daily and montelukast 10mg PO QHS. Please continue to monitor for S/S of allergies. 12. Pruritus: diphenhydramine 25mg PO Q4H PRN itching. Please continue to monitor for itching, PRN usage and drowsiness. 13. Rectal pain/hemorrhoids: hydrocortisone 2.5% cream 1 application TID PRN rectal pain and hydrocortisone 25mg suppository RC daily PRN hemorrhoids. Please continue to monitor for rectal pain and hemorrhoids. *14. GI prophylaxis/vitamin D deficiency/nutrition: ergocalciferol 50,000units PO weekly, lactobacillus 1T PO BID and multivitamin with minerals 1T PO breakfast. Please consider ordering a vitamin D level (last from 2019) if clinically appropriate. Thanks. Psychotropic Medications: 1. Depression: sertraline 25mg PO daily. Please see physician note regarding GDR. Please continue to monitor for GI side effects. Unnecessary Medications: None Bowel Regimen: Miralax 17gm PO daily, senna/docusate 1T PO BID and bisacodyl 10mg PO daily PRN constipation. Please continue to monitor for constipation and PRN usage. Date of Note:: 12/21/20
[2020-12-21 15:51] LABS: Bedside Glucose 126 mg/dL (70-110)
[2020-12-21] MEDS: Latanoprost 0.005% 1 Bottle 1 DRP OPHTHALMIC (20:30)
[2020-12-21] MEDS: Montelukast 10 MG Tablet PO (20:31)
[2020-12-21] MEDS: DiphenhydrAMINE 25 MG Capsule PO (20:44)
[2020-12-21 21:16] LABS: Bedside Glucose 132 mg/dL (70-110)
[2020-12-22 06:15] LABS: Bedside Glucose 91 mg/dL (70-110)
[2020-12-22] MEDS: Pantoprazole Sodium 40 MG Tablet PO ×2 (06:41→17:37)
[2020-12-22] MEDS: Furosemide 40 MG Tablet PO (06:41)
[2020-12-22] MEDS: BRIMONIDINE 0.2% 5ML BOTTLE 1 DRP EACH EYE ×2 (06:41→17:37)
[2020-12-22] MEDS: guaiFENesin 600 MG Tablet PO ×2 (06:41→17:37)
[2020-12-22] MEDS: Nystatin Powder 15gm Bottle 1 APPLIC TOPICAL ×2 (06:43→17:37)
[2020-12-22] MEDS: oxyCODONE 5 MG Tablet 15 MG PO ×4 (06:52→20:24)
[2020-12-22 06:55] VITALS: PULSE 92; RESP 18; O2SAT 90
[2020-12-22] MEDS: Pregabalin 50 MG Capsule PO ×2 (06:55→20:25)
[2020-12-22] MEDS: Budesonide Respules 0.5 MG/2 ML AMPUL.NEB. INHALATION ×2 (06:56→19:14)
[2020-12-22] MEDS: Loratadine 10 MG Tablet PO (08:31)
[2020-12-22] MEDS: Potassium Chloride Oral Tablet 20 MEQ PO (08:31)
[2020-12-22] MEDS: LINAGLIPTIN 5 MG TABLET PO (08:31)
[2020-12-22] MEDS: Tamsulosin HCl 0.4 MG Capsule PO (08:31)
[2020-12-22] MEDS: Sertraline 50 MG Tablet 25 MG PO (08:31)
[2020-12-22] MEDS: Multivitamins,Ther W-Minerals Tablet 1 TABLET PO (08:32)
[2020-12-22] MEDS: HYDROmorphone 2 MG TABLET PO (09:05)
[2020-12-22 10:46] LABS: Bedside Glucose 108 mg/dL (70-110)
[2020-12-22 11:19] VITALS: BP 98/68; PULSE 86; RESP 18; TEMP 36.7; O2SAT 94
--- NOTE | 2020-12-22 12:15 | CASEMGMT ---
Social Work Referral made to palliative care as per Dr. Turcios. SW called Palliative, spoke w/Eleanor, referral faxed. MARINANE Avila
[2020-12-22] MEDS: Acetaminophen 500 MG Tablet 1000 MG PO (14:58)
[2020-12-22 16:51] LABS: Bedside Glucose 114 mg/dL (70-110)
[2020-12-22 19:14] VITALS: PULSE 97; RESP 20
[2020-12-22] MEDS: Latanoprost 0.005% 1 Bottle 1 DRP OPHTHALMIC (20:22)
[2020-12-22] MEDS: Montelukast 10 MG Tablet PO (20:25)
[2020-12-22 21:30] LABS: Bedside Glucose 152 mg/dL (70-110)
--- NOTE | 2020-12-23 00:10 | NURSING ---
Pt resting at this time with Cpap on.
[2020-12-23] MEDS: oxyCODONE 5 MG Tablet 15 MG PO ×4 (05:17→21:33)
[2020-12-23] MEDS: BRIMONIDINE 0.2% 5ML BOTTLE 1 DRP EACH EYE ×2 (05:19→17:17)
[2020-12-23] MEDS: guaiFENesin 600 MG Tablet PO ×2 (05:20→17:17)
[2020-12-23] MEDS: Nystatin Powder 15gm Bottle 1 APPLIC TOPICAL ×2 (05:20→17:25)
[2020-12-23] MEDS: Pantoprazole Sodium 40 MG Tablet PO ×2 (05:20→17:17)
[2020-12-23] MEDS: Furosemide 40 MG Tablet PO (05:20)
[2020-12-23] MEDS: Pregabalin 50 MG Capsule PO ×2 (05:25→21:35)
[2020-12-23] MEDS: DiphenhydrAMINE 25 MG Capsule PO ×2 (05:28→23:02)
[2020-12-23 06:16] LABS: Bedside Glucose 97 mg/dL (70-110)
[2020-12-23 06:33] LABS: Anion Gap 5 (5-15); BUN 26 mg/dL (7-18); BUN/Creat Ratio 20.6 RATIO (10-20); Calcium,Total 9.1 mg/dL (8.5-10.1); Chloride 95 mmol/L (98-107); Creatinine, Serum 1.26 mg/dL (0.70-1.30); EST Glomerular Filtration Rate 61 mL/min (>60); Est Glom Filt Rate - Afr Amer 74 mL/min (>60); Estimated Creatinine Clearance 57.67 ml/min; Glucose 100 mg/dL (74-106); Potassium 3.9 mmol/L (3.5-5.1); Sodium Level 135 mmol/L (136-145)
[2020-12-23 06:38] VITALS: PULSE 124; RESP 20; O2SAT 91
[2020-12-23] MEDS: Budesonide Respules 0.5 MG/2 ML AMPUL.NEB. INHALATION ×2 (06:38→20:46)
[2020-12-23] MEDS: Tamsulosin HCl 0.4 MG Capsule PO (08:12)
[2020-12-23] MEDS: Potassium Chloride Oral Tablet 20 MEQ PO (08:12)
[2020-12-23] MEDS: Multivitamins,Ther W-Minerals Tablet 1 TABLET PO (08:12)
[2020-12-23] MEDS: Loratadine 10 MG Tablet PO (08:12)
[2020-12-23] MEDS: Sertraline 50 MG Tablet 25 MG PO (08:13)
[2020-12-23] MEDS: LINAGLIPTIN 5 MG TABLET PO (08:15)
[2020-12-23] MEDS: Timolol 0.5% 5ML OPTH.BTL 1 DRP EACH EYE ×2 (09:33→17:17)
--- NOTE | 2020-12-23 10:00 | NURSING ---
Therapy reports to this nurse that pt has knee pain and wants shots in his knee. This nurse questioned pt on desire for pain shots, pt stated he was supposed to get a series of shots by [facility] but then says Don't worry about it, I don't want my knee messed with I'll take care of it when I get out. A few hours later therapy again came up to this nurse and stated pt wants his knee aspiration and stated he said he needed it done today. This nurse spoke with pt and he again said, don't worry about it. This nurse explained that Dr. Dent was consulted for his right wrist and if he would like his knee addressed to mention it to [facility] while he is looking at his wrist.
--- NOTE | 2020-12-23 10:26 | NURSING ---
Dr. Turcios updated on Xray N.O. to consult with Dr. Kolb. Dr. Kolb's office was called and updated on need for consult, and request to see pt on unit instead of office. PT updated on consult and pt stated I want my knee aspirated too. This nurse instructed pt to discuss desire for aspiration with ortho when they visit
[2020-12-23 11:06] LABS: Bedside Glucose 108 mg/dL (70-110)
[2020-12-23 11:11] VITALS: BP 103/69; PULSE 113; RESP 18; TEMP 36.5; O2SAT 97
[2020-12-23] MEDS: HYDROmorphone 2 MG TABLET PO ×2 (11:47→23:02)
--- NOTE | 2020-12-23 13:22 | NURSING ---
Pt refused wound dressing tx from [facility] wound nurse stating he wanted pain medication prior to dressing change. Pt had already had oxycodone 15mg around 11am and Dilaudid around 11:45 for pain rated as a 13 out of 10. This nurse explained to pt that he had already received his pain medication and it was to early for next dose of pain medication because it is only 1:30. Pt drowsy and appeared to have trouble keeping his eyes open but could form coherent sentences, when asked to rate his pain he said still like a 12. but no apparent s/s of distress noted. Pt medicated around 2pm per pt request and reports of severe pain, pt still refusing at this time to allow [facility] to perform wound dressing. Pt states I will have my dressing changed later tonight when I get more pain medications.
--- NOTE | 2020-12-23 13:30 | NURSING ---
Pt refused wound dressing tx from [place] wound nurse stating he wanted pain medication prior to dressing change. Pt had already had
--- NOTE | 2020-12-23 14:10 | WOUNDNOTE ---
In to change dressing to the right lower leg. patient did not want this nurse to change the dressing at this time because it is too early for him to have his pain medication. patient does not appear to be in discomfort. patient is slightly groggy at this time and can barely keep eyes open. Notified CHARISSA Del Angel. dressing can be changed later today.
--- NOTE | 2020-12-23 14:15 | PCM.CONS.P ---
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 Seen today for palliative consultation for symptom management of pain, debility, and neurological disease. 1. Chronic knee, shoulder, back pain/wound pain: We will consult pain management. Patient is requiring high doses of opioids to control his pain and he is somewhat lethargic. Currently oxycodone 15 mg every 3 hours as needed and Dilaudid 2 mg every 3 hours as needed. Defer to pain management, he is not palliative appropriate regarding his pain. 2. Lower extremity weakness and debility: He has been somewhat nonambulatory for over a year, debilitated. Reports he has been improving but he has had multiple hospitalizations for various reasons. He is participating in therapy and will likely need ongoing outpatient therapy. Palliative would be happy to follow the patient and assist with coordination of care. 3. History of's CHF/morbid obesity/CKD stage III/chronic venous insufficiency/T2DM/hypogonadism/chronic PE/ADELAIDE/GERD/vitamin D deficiency/hypertension/aortic aneurysm/left knee DJD/osteoarthritis: Follows with Dr. Mcconnell in [place] for his joint pain, she provides him with tramadol, which he has been on for quite some time. I did run an OARRS. It appears his daughter, Gladys has been prescribing gabapentin powder. Thank you for the opportunity to participate in this patient's care, please do not hesitate to contact [facility] with any further questions or concerns. Palliative direct line is [phone]. We will have a liaison follow up and discuss palliative services further. Greater than 50% of F2F visit dedicated to education and counseling of palliative care services, medications, comorbid conditions and potential assistance with management, and plan of care moving forward. Start time: 1405 End time: 1508 HPI Consult Data Date of Consult: 12/23/20 HPI Narrative HPI Narrative: PRECIOUS CHI, is a 65 M who presented to [facility] transitional care unit for rehab after being hospitalized at [facility] for worsening weakness. He had an MRI that showed thoracic spine stenosis and orthopedic spine was consulted. CT the chest showed a type B aortic dissection and vascular was consulted. He had an IVC filter placed and admitted to [facility] for rehabilitation. He also had another hospitalization for hypoxia and venous stasis ulcers of the right leg. He has been followed by infectious disease for IV antibiotics and cellulitis. He was then readmitted to [facility] for hypoxia 12/16/2020, then discharged to transitional care unit 12/20/2020 for further rehabilitation and strengthening. He plans to return home with his . Patient has an extensive list of comorbidities. Nursing staff reports uncontrolled pain and patient very obsessive about what he takes for the pain. He does not want anyone messing with his meds. Current medication regimen include Tylenol 1 g every 6 hours as needed, oxycodone 15 mg every 3 hours as needed, Lyrica 50 mg twice daily, Dilaudid 2 mg p.o. every 3 hours as needed. Most of his pain is due to his spinal stenosis and lower extremity wounds. He is having some pain to the right wrist and stiffness s/p carpal tunnel surgery. Dr. Dent was consulted. Patient seen and examined. Denies nausea or vomiting. He was having diarrhea but this has seemed to normalize in the last few days. No abdominal pain. No shortness of breath or chest pain. His abdominal folds however are painful due to the excoriation. Also has flaking skin to the feet. His pain is currently controlled. His speech is clear but his eyes are partially closing during our conversation. He appears somewhat lethargic but again, able to speak in complete sentences. Reports therapy is going fairly well. He does get dizzy with standing at times. Most of the consult was the patient giving history. We did discuss his medications and prior failures for his pain management. Given the fact that his pain is chronic regarding his spinal stenosis and lower extremity wounds, would refer him to pain management as he is not palliative appropriate for pain management. He is however palliative appropriate for symptom management of chronic constipation and nausea and overall supportive care. Discussed goals, would include improvement in symptoms, improvement in quality of life, and avoidance of hospitalizations. [facility] Medical History Acute respiratory failure with hypoxia and hypercapnia Anemia Arthritis aspiration of left knee Bilateral pulmonary infiltrates on CXR BPH (benign prostatic hyperplasia) Bradycardia Cardiology follow-up encounter Chronic cutaneous venous stasis ulcer Chronic diastolic (congestive) heart failure Chronic kidney disease, stage 3 Chronic venous insufficiency Chronic venous stasis dermatitis COPD (chronic obstructive pulmonary disease) Debility Diabetes Disability of walking Essential (primary) hypertension Excoriation of multiple sites (~07/2020) Former smoker Generalized weakness GERD (gastroesophageal reflux disease) Glaucoma 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 History of CHF (congestive heart failure) History of edema History of GI bleed History of renal disease History of ulceration Hx of cataract Hyperlipidemia Hypertension Kidney stones Lip swelling Low testosterone in male Lower extremity weakness Morbid obesity MRSA (methicillin resistant Staphylococcus aureus) infection Non-healing ulcer of multiple sites, limited to breakdown of skin Normocytic anemia Obesity ADELAIDE (obstructive sleep apnea) Osteoarthritis Pressure ulcer Pseudomonas aeruginosa infection Secondary pulmonary arterial hypertension Shortness of breath Shortness of breath on exertion Sleep apnea Stage 2 moderate COPD by GOLD classification Thoracic aortic aneurysm without rupture Tobacco use Type 2 diabetes mellitus Ulcer of right lower extremity Wears glasses Home Medications brimonidine 0.2 % eye drops 1 drp OPHTHALMIC BID ml 05/04/18 [History Last Taken Unknown] dorzolamide 2 %-timolol 0.5 % (PF) eye drops 1 drp OPHTHALMIC BID 05/04/18 [History Last Taken Unknown] omeprazole 20 mg capsule,delayed release 20 mg PO DAILY 05/04/18 [History Last Taken Unknown] tamsulosin 0.4 mg capsule 0.4 mg PO DAILY@0800 05/30/18 [History Last Taken Unknown] latanoprost 0.005 % eye drops 1 drp OPHTHALMIC QPM 09/06/18 [History Last Taken Unknown] oxygen MISCELLANEOUS 12/06/18 [History Last Taken Unknown] cholecalciferol (vitamin D3) 1,250 mcg (50,000 unit) tablet 50,000 unit PO QWEEK #10 tab 02/04/19 [Rx Last Taken Unknown] labetalol 200 mg tablet 200 mg PO 0600,1200,2200 tab 08/28/19 [History Last Taken Unknown] Lift Chair #1 ea 07/03/20 [Rx Last Taken Unknown] furosemide 40 mg tablet 40 mg PO BID #180 tab 08/07/20 [Rx Last Taken Unknown] B.ani-L.aci-L.yoana-L.plan-L.zayda [Probiotic Formula] 1 cap PO BID 12/20/20 [History Last Taken Unknown] acetaminophen 650 mg PO Q8H PRN PRN 12/20/20 [History Last Taken Unknown] albuterol sulfate 2.5 mg INHALATION Q6H PRN PRN 12/20/20 [History Last Taken Unknown] budesonide 0.5 mg INHALATION BID 12/20/20 [History Last Taken Unknown] diphenhydramine HCl 25 mg PO Q4H PRN 12/20/20 [History Last Taken Unknown] docusate sodium 100 mg PO BID 12/20/20 [History Last Taken Unknown] ferrous sulfate 325 mg PO TIDCM 12/20/20 [History Last Taken Unknown] fluticasone propion-salmeterol [Wixela Inhub] 1 inh INHALATION BID 12/20/20 [History Last Taken Unknown] guaifenesin 600 mg PO BID 12/20/20 [History Last Taken Unknown] linagliptin [Tradjenta] 5 mg PO DAILY@0800 12/20/20 [History Last Taken Unknown] loratadine 10 mg PO DAILY@0800 12/20/20 [History Last Taken Unknown] montelukast 10 mg PO QHS 12/20/20 [History Last Taken Unknown] multivitamin,fd-uvyz-Fx-FA-min [Multivitamin And Mineral] 1 tab PO DAILY@0800 12/20/20 [History Last Taken Unknown] oxycodone 15 mg PO Q3H PRN 12/20/20 [History Last Taken Unknown] pantoprazole [Protonix] 40 mg PO BID 12/20/20 [History Last Taken Unknown] pramoxine-mineral oil-zinc [Anusol] 1 ea TOPICAL TID PRN PRN 12/20/20 [History Last Taken Unknown] pregabalin 50 mg PO 0600,2100 12/20/20 [History Last Taken Unknown] sertraline 25 mg PO DAILY@0800 12/20/20 [History Last Taken Unknown] tiotropium bromide [Spiriva Respimat] 2 puff INHALATION DAILY 12/20/20 [History Last Taken Unknown] Allergy/AdvReac Type Severity Reaction Status Date / Time lisinopril Allergy Severe Angioedema Verified 10/24/20 15:56 Sulfa (Sulfonamide AdvReac Other Verified 10/24/20 15:56 Antibiotics) chapstick Allergy swelling Uncoded 10/24/20 15:56 Family History Father Cancer Mother Asthma Surgical History History of carpal tunnel surgery of right wrist History of cataract extraction Social History household members: spouse Smoking Status: Former smoker second hand exposure: No alcohol intake: current alcohol intake frequency: a few times a week substance use type: does not use caffeine: No what type of physical activity do you participate in: none ROS ROS Narrative Review of systems otherwise negative from a constitutional, HEENT, respiratory, cardiovascular, GI, genitourinary, musculoskeletal, skin, neurologic, psychiatric and hematologic system unless stated above. Physical Exam Const oriented x3 and no apparent distress Nutritional Appearance: obese HEENT normocephalic and head/scalp atraumatic Eyes conjunctivae normal Neck supple Resp Resp Narrative: no audible wheeze Extremity General Extremity: edema bilateral (Bilateral lower extremities, left knee as well) Skin Skin Narrative: various Skin excoriation and discoloration Wound Narrative: Reviewed wound pictures from medical record Neuro moves all extremities and no focal motor deficits Psych mental status grossly normal Memory / Cognition: memory grossly intact
--- NOTE | 2020-12-23 15:09 | CASEMGMT ---
Social Work Plan of care meeting held today with pt and his present. Pt is receiving PT/OT and participating well. Pt updated on medicare coverage and that pt started TCU stay on day 60 of 100 days of medicare coverage. Pt and express understanding. Pt plans to return home with his at time of discharge and will likely need 24 hour care. No discharge date set at this time. Will continue with treatment plan. Arden CHAVEZ
[2020-12-23 16:35] LABS: Bedside Glucose 103 mg/dL (70-110)
--- NOTE | 2020-12-23 16:38 | NURSING ---
Pain management called and Dr. Bautista will be in monday 12/25 for consult
--- NOTE | 2020-12-23 18:03 | NURSING ---
Pt's upset stating Where is the doctor he does not check on my and he is a very sick man. This nurse explained that because this is a [facility], doctor rounds are different then if he were in an acute care hospital and they do not round as often. This nurse assured pt and that the doctor communicates with staff multiple times a day and monitors labs ect. and pt requesting to see Dr. Turcios in the morning. Message left for Dr. Turcios communicating request. Pt also requesting hard copies of his labs and xrays ect. This nurse explained that such information could be obtained by contacting medical records.
[2020-12-23 20:46] VITALS: PULSE 85; RESP 20
[2020-12-23 21:25] LABS: Bedside Glucose 135 mg/dL (70-110)
[2020-12-23] MEDS: Latanoprost 0.005% 1 Bottle 1 DRP OPHTHALMIC (21:35)
[2020-12-23] MEDS: Montelukast 10 MG Tablet PO (21:37)
[2020-12-23 22:00] VITALS: PULSE 87; O2SAT 95
[2020-12-23] MEDS: Acetaminophen 500 MG Tablet 1000 MG PO (23:03)
[2020-12-24 06:16] LABS: Bedside Glucose 95 mg/dL (70-110)
[2020-12-24] MEDS: Timolol 0.5% 5ML OPTH.BTL 1 DRP EACH EYE ×2 (06:26→18:09)
[2020-12-24] MEDS: guaiFENesin 600 MG Tablet PO ×2 (06:26→18:08)
[2020-12-24] MEDS: Nystatin Powder 15gm Bottle 1 APPLIC TOPICAL ×2 (06:26→18:12)
[2020-12-24] MEDS: Pantoprazole Sodium 40 MG Tablet PO ×2 (06:26→18:08)
[2020-12-24] MEDS: BRIMONIDINE 0.2% 5ML BOTTLE 1 DRP EACH EYE ×2 (06:26→18:08)
[2020-12-24] MEDS: Furosemide 40 MG Tablet PO (06:26)
[2020-12-24] MEDS: Pregabalin 50 MG Capsule PO (06:27)
[2020-12-24] MEDS: DiphenhydrAMINE 25 MG Capsule PO (06:27)
[2020-12-24] MEDS: oxyCODONE 5 MG Tablet 15 MG PO ×4 (06:27→21:29)
[2020-12-24 07:30] VITALS: PULSE 167; RESP 18; O2SAT 94
[2020-12-24] MEDS: Budesonide Respules 0.5 MG/2 ML AMPUL.NEB. INHALATION (07:30)
--- NOTE | 2020-12-24 07:41 | CPS ---
Checked pulse ox on multiple fingers and felt arterial artery. pt HR was in the 170's. Went and told the RN.
[2020-12-24 07:45] VITALS: BP 88/57; PULSE 176
[2020-12-24] MEDS: Potassium Chloride Oral Tablet 20 MEQ PO (07:49)
[2020-12-24] MEDS: Tamsulosin HCl 0.4 MG Capsule PO (07:49)
[2020-12-24] MEDS: Loratadine 10 MG Tablet PO (07:49)
[2020-12-24] MEDS: Multivitamins,Ther W-Minerals Tablet 1 TABLET PO (07:50)
[2020-12-24] MEDS: Sertraline 50 MG Tablet 25 MG PO (07:50)
[2020-12-24] MEDS: LINAGLIPTIN 5 MG TABLET PO (07:50)
--- NOTE | 2020-12-24 07:57 | EKG12_ITS ---
Test Reason : HR Blood Pressure : / mmHG Vent. Rate : 159 BPM Atrial Rate : 119 BPM P-R Int : 000 ms QRS Dur : 076 ms QT Int : 282 ms P-R-T Axes : 000 -24 068 degrees QTc Int : 458 ms Supraventricular tachycardia Otherwise normal ECG When compared with ECG of 21-DEC-2020 02:51, MANUAL COMPARISON REQUIRED, DATA IS UNCONFIRMED Confirmed by JANEL HOLDER, JJ ([id number]), digital editor TRACY PEDRO ([id number]) on 12/29/2020 2:06:10 PM Referred By: Jasvir Confirmed By:JJ ISLAS MD
--- NOTE | 2020-12-24 09:25 | NURSING ---
Pt tachycardic this morning with HR in 170's and BP 88/57, apical heart rate is tachy but sounds regular. Pt has been refusing his labetalol frequently due to pt having lower blood pressures, BUN is also starting to trend up and pt was instructed to continue to drink fluids. Dr. Turcios was updated and he went and saw pt. Pt stated he thinks he may have an arrhythmia that he has had SVTs in the past. Dr. Turcios ordered EKG and was updated on results.
--- NOTE | 2020-12-24 10:44 | CON.PCM_ITS ---
Consult Date of Consult: 12/24/20 Patient consulted today regarding right wrist pains. Patient states that he has had pains in the wrist for a long time now noticing this a little more since being transferred back here to [facility] after two stints in [facility] for multiple issues. Patient denies an acute injury causing his pains although admits to having multiple falls in the past due to weakness and gait abnormalities (again though can not remember a single incident causing this.) He did undergo carpal tunnel release without complication on 09-29-20. Wrist shows some mild generalized swelling without erythema, warmth, or other skin changes to indicate acute inflammation or infection. he does have some generalized decreased range of motion. He had minor discomfort with terminal flexion and extension at the same time complains more with radial and ulnar deviation. Pains during active motion are noted in the ulnar-carpal joint. He does have pains on palpation primarily over the ulnar-carpal joint with some minor pains over the triquetrum. He has no dorsal pains or pains in the radio- carpal joint. He has no pains over the carpal tunnel incision and there are no signs of inflammation or infection around the incision site. He has intact motor function of the fingers. 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 He does not recall a single episode causing the pains and states that he feels it is overuse of the wrist. Exam shoes mild swelling without signs of acute inflammation or infection. Some pain with ROM and with palpation of the ulnar-carpal region with some pains in triquetrum area as well. We did review patient's MRI showing SLAC wrist as well as small fragment possibly from triquetral avulsion. We discussed that without an acute injury that discomfort is likely more from the SLAC wrist although with some tenderness around the triquetrum there could be some discomfort from the avulsion (we have no previous films for comparison). There are no signs of carpal tunnel involvement. At this time we discussed using a cock-up wrist splint for some support/immobilization at the same time really need him to do some passive/active ROM of the wrist to keep this from getting too stiff and ultimately a decrease in is ROM. Can use ice as needed. He is already on extensive pain medications and does not want any interference with his current regimen. If he has some progressing stiffness then will need to consider occupational therapy.
[2020-12-24 10:46] LABS: Bedside Glucose 113 mg/dL (70-110)
[2020-12-24 11:13] VITALS: BP 121/78; PULSE 88; RESP 16; TEMP 36.4; O2SAT 98
[2020-12-24] MEDS: Labetalol 200 MG Tablet PO (11:15)
[2020-12-24] MEDS: HYDROmorphone 2 MG TABLET PO (11:54)
[2020-12-24 13:15] VITALS: BP 95/55; PULSE 93
[2020-12-24] MEDS: Acetaminophen 500 MG Tablet 1000 MG PO (13:28)
--- NOTE | 2020-12-24 13:45 | NURSING ---
pt's BP 121/78 this afternoon before administering labetalol, pt has also had oxycodone and Dilaudid since taking labetalol, pt requesting Tylenol and Benadryl at this time and states he wants his oxy given again as soon as it is available, which is around 2pm. BP rechecked and noted to be 95/55. This nurse expressed concern about giving benadryl at this time and then giving oxycodone approx 30 mins later, especially given hypotensive and tachycardic episode this morning. Pt verbalized understanding and agreed that with his current blood pressure he no longer wants the Benadryl and is ok with just taking the oxycodone when it is due. Tylenol given per request.
[2020-12-24 16:06] LABS: Bedside Glucose 106 mg/dL (70-110)
[2020-12-24] MEDS: Montelukast 10 MG Tablet PO (21:22)
[2020-12-24] MEDS: Latanoprost 0.005% 1 Bottle 1 DRP OPHTHALMIC (21:22)
[2020-12-24 21:40] VITALS: BP 94/58
[2020-12-24 22:15] LABS: Bedside Glucose 130 mg/dL (70-110)
[2020-12-24 22:38] VITALS: PULSE 76; RESP 20; O2SAT 94
[2020-12-25] VITALS (7 sets, daily range): BP systolic 88–130; BP diastolic 48–80; PULSE 91–119; RESP 18–20; TEMP 36.4; O2SAT 92–99
--- NOTE | 2020-12-25 03:58 | NURSING ---
While this Nurse was reviewing patient's chart. Seen new order placed yesterday (12/24/20 @ 11:32 am) by BECKY Nielsen for a cock-up splint to right wrist. Called ER and splint was sent up. Splint placed on patient per order.
[2020-12-25 06:21] LABS: Bedside Glucose 103 mg/dL (70-110)
[2020-12-25] MEDS: Pantoprazole Sodium 40 MG Tablet PO ×2 (06:41→18:05)
[2020-12-25] MEDS: Furosemide 40 MG Tablet PO (06:41)
[2020-12-25] MEDS: oxyCODONE 5 MG Tablet 15 MG PO ×4 (06:41→23:12)
[2020-12-25] MEDS: guaiFENesin 600 MG Tablet PO ×2 (06:41→18:05)
[2020-12-25] MEDS: BRIMONIDINE 0.2% 5ML BOTTLE 1 DRP EACH EYE ×2 (06:42→18:14)
[2020-12-25] MEDS: Timolol 0.5% 5ML OPTH.BTL 1 DRP EACH EYE ×2 (06:42→18:15)
[2020-12-25] MEDS: Budesonide Respules 0.5 MG/2 ML AMPUL.NEB. INHALATION ×2 (07:17→19:02)
[2020-12-25] MEDS: Nystatin Powder 15gm Bottle 1 APPLIC TOPICAL ×2 (09:24→18:06)
[2020-12-25] MEDS: Ergocalciferol 1.25 MG (50, 000 UNIT) Capsule PO (09:28)
[2020-12-25] MEDS: Tamsulosin HCl 0.4 MG Capsule PO (09:29)
[2020-12-25] MEDS: Loratadine 10 MG Tablet PO (09:29)
[2020-12-25] MEDS: Potassium Chloride Oral Tablet 20 MEQ PO (09:29)
[2020-12-25] MEDS: Multivitamins,Ther W-Minerals Tablet 1 TABLET PO (09:29)
[2020-12-25] MEDS: LINAGLIPTIN 5 MG TABLET PO (09:29)
[2020-12-25] MEDS: Sertraline 50 MG Tablet 25 MG PO (09:30)
[2020-12-25] MEDS: HYDROmorphone 2 MG TABLET PO ×2 (09:34→13:29)
[2020-12-25 11:21] LABS: Bedside Glucose 105 mg/dL (70-110)
--- NOTE | 2020-12-25 11:22 | NURSING ---
pt c/o 10/10 pain to buttocks, RT calf pain. pt w/out any signs of distress. PRN oxyir given. pt pleasant and cooperative, forgot that he had dilaudid at 0934, pt wanted that but then realized he was not able to get that yet. pt asking if my name was Karen. pt was trying to remember employees names, pt very forgetful. pt resting in bed on back, call light in reach.
--- NOTE | 2020-12-25 11:23 | NURSING ---
pt refused this nurse to change his dressings stating ousmane would be up to do it. rn aware.
[2020-12-25] MEDS: Labetalol 200 MG Tablet PO ×2 (11:46→21:12)
[2020-12-25] MEDS: Pregabalin 50 MG Capsule PO (13:29)
--- NOTE | 2020-12-25 14:31 | CASEMGMT ---
Social Work BIMS and PHQ-9 completed for MDS assessment. Lidia Patel, RAIL CAR DRIVER OFFICE ADMINISTRATOR
--- NOTE | 2020-12-25 16:23 | NURSING ---
ALL CARE GIVEN IN ROOM DUE TO PT IN PRECAUTIONS FOR ESBL IN WOUNDS.
--- NOTE | 2020-12-25 19:45 | NURSING ---
Received phone call from Fariha at Dr. Bautista's office reporting he will not be up to see pt today. Given contact # where physician could be contacted w/ updates.
--- NOTE | 2020-12-25 21:00 | NURSING ---
Questioned pt if he is agreeable to pain management consult. Pt discusses medical history in recent months at length. Verbalizes frustration with documentation per palliative ARTISTIC ASSOCIATE in regard to narcotic medication use. Emotional support and active listening provided. Pt verbalizes he is agreeable to pain management consult as he was supposed to go to specialist after his carpal tunnel surgery, but was not able to make it due to difficulty leaving the home.
[2020-12-25] MEDS: Montelukast 10 MG Tablet PO (21:12)
[2020-12-25] MEDS: Latanoprost 0.005% 1 Bottle 1 DRP OPHTHALMIC (21:12)
[2020-12-25 21:41] LABS: Bedside Glucose 100 mg/dL (70-110)
[2020-12-25 22:06] LABS: QNTFERON TB Mitogen Value > 10.00 IU/mL (.); QNTFERON TB Nil Value 0.09 IU/mL (.); QNTFERON TB2+ Ag Value 0.09 IU/mL (.)
[2020-12-25 22:39] LABS: QNTIFERON TB Positive Criteria Negative (Negative)
--- NOTE | 2020-12-25 23:19 | NURSING ---
CPAP applied w/ O2 bleed-in at 2 lpm. Mask adjusted for comfort and no leaks noted.
[2020-12-26] MEDS: Pantoprazole Sodium 40 MG Tablet PO ×2 (05:00→16:54)
[2020-12-26] MEDS: guaiFENesin 600 MG Tablet PO ×2 (05:01→16:54)
[2020-12-26] MEDS: Nystatin Powder 15gm Bottle 1 APPLIC TOPICAL ×2 (05:02→16:53)
[2020-12-26] MEDS: BRIMONIDINE 0.2% 5ML BOTTLE 1 DRP EACH EYE ×2 (05:02→16:54)
[2020-12-26] MEDS: Timolol 0.5% 5ML OPTH.BTL 1 DRP EACH EYE ×2 (05:03→16:54)
[2020-12-26] MEDS: oxyCODONE 5 MG Tablet 15 MG PO ×3 (05:14→22:45)
[2020-12-26] MEDS: Labetalol 200 MG Tablet PO ×2 (05:14→22:47)
[2020-12-26] MEDS: Furosemide 40 MG Tablet PO (05:14)
[2020-12-26 05:34] VITALS: BP 107/59; PULSE 70; RESP 16; TEMP 36.7; O2SAT 90
--- NOTE | 2020-12-26 05:38 | NURSING ---
Mepliex applied to buttocks and sacral area. Positioned for comfort to rt side. Eucerin lotion applied to back and lt hip. Aquaphor applied to open areas not covered by mepliex. Call light w/ in reach. Will continue to monitor.
[2020-12-26 06:25] LABS: Bedside Glucose 90 mg/dL (70-110)
[2020-12-26] MEDS: Sertraline 50 MG Tablet 25 MG PO (09:44)
[2020-12-26] MEDS: Loratadine 10 MG Tablet PO (09:44)
[2020-12-26] MEDS: LINAGLIPTIN 5 MG TABLET PO (09:44)
[2020-12-26] MEDS: Tamsulosin HCl 0.4 MG Capsule PO (09:44)
[2020-12-26] MEDS: Multivitamins,Ther W-Minerals Tablet 1 TABLET PO (09:44)
[2020-12-26] MEDS: Potassium Chloride Oral Tablet 20 MEQ PO (09:45)
[2020-12-26] MEDS: HYDROmorphone 2 MG TABLET PO ×2 (09:58→16:42)
[2020-12-26 11:20] LABS: Bedside Glucose 125 mg/dL (70-110)
[2020-12-26 16:36] VITALS: O2SAT 3
[2020-12-26 16:46] LABS: Bedside Glucose 146 mg/dL (70-110)
[2020-12-26 16:55] VITALS: BP 106/63; PULSE 80; RESP 16; TEMP 36.4; O2SAT 98
[2020-12-26] MEDS: Hydrocortisone 25 MG Suppository RC (18:11)
[2020-12-26 19:22] VITALS: PULSE 83; RESP 14
[2020-12-26] MEDS: Budesonide Respules 0.5 MG/2 ML AMPUL.NEB. INHALATION (19:22)
[2020-12-26 21:21] LABS: Bedside Glucose 137 mg/dL (70-110)
[2020-12-26 22:35] VITALS: O2SAT 96
--- NOTE | 2020-12-26 22:35 | CPS ---
assisted pt with putting on home CPAP unit.
[2020-12-26] MEDS: Montelukast 10 MG Tablet PO (22:47)
[2020-12-26] MEDS: Latanoprost 0.005% 1 Bottle 1 DRP OPHTHALMIC (22:49)
[2020-12-27] MEDS: oxyCODONE 5 MG Tablet 15 MG PO ×4 (02:22→23:14)
[2020-12-27 06:18] VITALS: BP 139/91; PULSE 75; RESP 20; TEMP 36.4; O2SAT 98
[2020-12-27] MEDS: HYDROmorphone 2 MG TABLET PO ×3 (06:20→21:18)
[2020-12-27] MEDS: guaiFENesin 600 MG Tablet PO ×2 (06:20→17:20)
[2020-12-27] MEDS: Furosemide 40 MG Tablet PO (06:21)
[2020-12-27] MEDS: Pantoprazole Sodium 40 MG Tablet PO ×2 (06:21→17:20)
[2020-12-27] MEDS: Labetalol 200 MG Tablet PO (06:21)
[2020-12-27] MEDS: Timolol 0.5% 5ML OPTH.BTL 1 DRP EACH EYE ×2 (06:23→17:22)
[2020-12-27] MEDS: BRIMONIDINE 0.2% 5ML BOTTLE 1 DRP EACH EYE ×2 (06:23→17:22)
[2020-12-27] MEDS: Nystatin Powder 15gm Bottle 1 APPLIC TOPICAL ×2 (06:23→17:22)
[2020-12-27 06:25] LABS: Bedside Glucose 91 mg/dL (70-110)
[2020-12-27] MEDS: Budesonide Respules 0.5 MG/2 ML AMPUL.NEB. INHALATION ×2 (07:25→19:45)
[2020-12-27] MEDS: Tamsulosin HCl 0.4 MG Capsule PO (07:56)
[2020-12-27] MEDS: Loratadine 10 MG Tablet PO (07:56)
[2020-12-27] MEDS: Potassium Chloride Oral Tablet 20 MEQ PO (07:57)
[2020-12-27] MEDS: Sertraline 50 MG Tablet 25 MG PO (07:57)
[2020-12-27] MEDS: LINAGLIPTIN 5 MG TABLET PO (07:57)
[2020-12-27] MEDS: Multivitamins,Ther W-Minerals Tablet 1 TABLET PO (07:57)
[2020-12-27 11:11] LABS: Bedside Glucose 115 mg/dL (70-110)
[2020-12-27 13:51] VITALS: BP 99/63; PULSE 107; RESP 16; TEMP 35.9
[2020-12-27 17:05] LABS: Bedside Glucose 113 mg/dL (70-110)
[2020-12-27 19:45] VITALS: PULSE 110; RESP 16
[2020-12-27] MEDS: Pregabalin 50 MG Capsule PO (21:18)
[2020-12-27] MEDS: Latanoprost 0.005% 1 Bottle 1 DRP OPHTHALMIC (21:19)
[2020-12-27] MEDS: Montelukast 10 MG Tablet PO (21:20)
[2020-12-27 21:35] LABS: Bedside Glucose 139 mg/dL (70-110)
[2020-12-28] MEDS: BRIMONIDINE 0.2% 5ML BOTTLE 1 DRP EACH EYE ×2 (06:18→17:49)
[2020-12-28] MEDS: Pantoprazole Sodium 40 MG Tablet PO ×2 (06:18→17:46)
[2020-12-28] MEDS: Furosemide 40 MG Tablet PO (06:18)
[2020-12-28] MEDS: guaiFENesin 600 MG Tablet PO ×2 (06:18→17:46)
[2020-12-28] MEDS: Timolol 0.5% 5ML OPTH.BTL 1 DRP EACH EYE ×2 (06:18→17:51)
[2020-12-28] MEDS: oxyCODONE 5 MG Tablet 15 MG PO ×4 (06:22→23:00)
[2020-12-28] MEDS: Labetalol 200 MG Tablet PO ×2 (06:27→11:48)
[2020-12-28 06:28] VITALS: BP 132/81; PULSE 67; RESP 18; TEMP 36.2; O2SAT 98
[2020-12-28] MEDS: Budesonide Respules 0.5 MG/2 ML AMPUL.NEB. INHALATION ×2 (06:35→19:00)
[2020-12-28] MEDS: Albuterol 2.5 MG/3 ML VIAL.NEB. INHALATION (06:35)
[2020-12-28 06:44] LABS: Absolute Lymphocyte Count 1.73 X10^3/uL (0.83-4.51); Absolute Neutrophil Count 3.6 X10^3/uL (2.0-7.7); Basophil# 0.03 X10^3/uL; Basophil% 0.4 % (0-1); Eosinophil# 0.85 X10^3/uL; Eosinophils% 12.2 % (0-5); Hematocrit 29.8 % (40-54); Hemoglobin 8.8 g/dL (13.0-16.5); Lymphocyte # 1.73 X10^3/ul (0.83-4.51); Lymphocyte % 24.9 % (19-41); Mean Corp Hgb Conc 29.5 g/dL (32-36); Mean Corpuscular Hgb 26.9 pg (27.0-32.0); Mean Corpuscular Volume 91.1 fL (80-94); Mean Platelet Vol. 9.6 fl (6.2-12.0); Monocyte# 0.72 X10^3/uL; Monocyte% 10.4 % (0-10); NRBC Flagged by Analyzer 0 % (0-5); Neutrophil % 51.8 % (47-70); Platelet Count 411 K/mm3 (150-450); RBC Distribution Width CV 17.2 % (11.6-14.6); RBC Distribution Width SD 57.1 fl (35.1-43.9); Red Blood Count 3.27 M/mm3 (4.6-6.2)
[2020-12-28 06:49] VITALS: PULSE 100; RESP 20; O2SAT 98
[2020-12-28 07:23] LABS: Anion Gap 4 (5-15); BUN 28 mg/dL (7-18); BUN/Creat Ratio 24.6 RATIO (10-20); Calcium,Total 9.4 mg/dL (8.5-10.1); Chloride 96 mmol/L (98-107); Creatinine, Serum 1.14 mg/dL (0.70-1.30); EST Glomerular Filtration Rate 68 mL/min (>60); Est Glom Filt Rate - Afr Amer 83 mL/min (>60); Estimated Creatinine Clearance 63.74 ml/min; Glucose 82 mg/dL (74-106); Potassium 4.1 mmol/L (3.5-5.1); Sodium Level 139 mmol/L (136-145)
[2020-12-28 07:26] LABS: Bedside Glucose 84 mg/dL (70-110)
[2020-12-28] MEDS: Nystatin Powder 15gm Bottle 1 APPLIC TOPICAL ×2 (10:01→23:01)
[2020-12-28] MEDS: LINAGLIPTIN 5 MG TABLET PO (10:03)
[2020-12-28] MEDS: Potassium Chloride Oral Tablet 20 MEQ PO (10:03)
[2020-12-28] MEDS: Multivitamins,Ther W-Minerals Tablet 1 TABLET PO (10:03)
[2020-12-28] MEDS: Loratadine 10 MG Tablet PO (10:04)
[2020-12-28] MEDS: Tamsulosin HCl 0.4 MG Capsule PO (10:04)
[2020-12-28] MEDS: Sertraline 50 MG Tablet 25 MG PO (10:05)
--- NOTE | 2020-12-28 10:42 | NURSING ---
pt refused 2nd tb test. pt stated i refused 1st one and had chest xray on other side. reported to rn.
--- NOTE | 2020-12-28 10:55 | NURSING ---
jacquie notified of pt not wanting tb test. per jacquie its ok cause pt had qft test done and was negative.
[2020-12-28] MEDS: HYDROmorphone 2 MG TABLET PO (11:26)
[2020-12-28] MEDS: Pregabalin 50 MG Capsule PO ×2 (11:26→23:00)
[2020-12-28 11:51] LABS: Bedside Glucose 102 mg/dL (70-110)
[2020-12-28 11:56] VITALS: BP 130/84; PULSE 82
--- NOTE | 2020-12-28 13:49 | NURSING ---
CHARISSA DE LA TORRE/WOUND NURSE DID DRESSING CHANGE AND WOUND CULTURE.
--- NOTE | 2020-12-28 14:27 | WOUNDNOTE ---
wound photo: right lower leg
--- NOTE | 2020-12-28 14:27 | WOUNDNOTE ---
wound photo: right lower leg
--- NOTE | 2020-12-28 14:43 | NURSING ---
Called to check on consult that was called for Dr. Hill. Spoke with answering service and he will be back in office on Monday.
[2020-12-28 17:00] LABS: Bedside Glucose 152 mg/dL (70-110)
[2020-12-28 19:00] VITALS: PULSE 93; RESP 17
[2020-12-28 21:30] LABS: Bedside Glucose 151 mg/dL (70-110)
[2020-12-28] MEDS: Montelukast 10 MG Tablet PO (23:00)
[2020-12-28] MEDS: Hydrocortisone 25 MG Suppository RC (23:01)
[2020-12-28] MEDS: Latanoprost 0.005% 1 Bottle 1 DRP OPHTHALMIC (23:21)
[2020-12-29] MEDS: Pantoprazole Sodium 40 MG Tablet PO ×2 (06:30→17:50)
[2020-12-29] MEDS: Furosemide 40 MG Tablet PO (06:30)
[2020-12-29] MEDS: BRIMONIDINE 0.2% 5ML BOTTLE 1 DRP EACH EYE ×2 (06:31→17:47)
[2020-12-29] MEDS: Pregabalin 50 MG Capsule PO (06:31)
[2020-12-29] MEDS: guaiFENesin 600 MG Tablet PO ×2 (06:31→17:49)
[2020-12-29] MEDS: Nystatin Powder 15gm Bottle 1 APPLIC TOPICAL ×2 (06:31→17:50)
[2020-12-29] MEDS: Timolol 0.5% 5ML OPTH.BTL 1 DRP EACH EYE ×2 (06:32→17:46)
[2020-12-29] MEDS: Labetalol 200 MG Tablet PO ×2 (06:33→22:22)
[2020-12-29] MEDS: oxyCODONE 5 MG Tablet 15 MG PO ×4 (06:34→22:24)
[2020-12-29 06:36] LABS: Bedside Glucose 75 mg/dL (70-110)
[2020-12-29] MEDS: Sertraline 50 MG Tablet 25 MG PO (08:40)
[2020-12-29] MEDS: Loratadine 10 MG Tablet PO (08:40)
[2020-12-29] MEDS: Tamsulosin HCl 0.4 MG Capsule PO (08:40)
[2020-12-29] MEDS: Multivitamins,Ther W-Minerals Tablet 1 TABLET PO (08:40)
[2020-12-29] MEDS: Potassium Chloride Oral Tablet 20 MEQ PO (08:40)
[2020-12-29] MEDS: LINAGLIPTIN 5 MG TABLET PO (08:40)
[2020-12-29] MEDS: HYDROmorphone 2 MG TABLET PO ×2 (10:36→15:31)
[2020-12-29 11:40] LABS: Bedside Glucose 140 mg/dL (70-110)
--- NOTE | 2020-12-29 11:46 | NURSING ---
Labetalol held for BP 89/59
[2020-12-29 14:05] VITALS: BP 120/80; PULSE 67; RESP 18; TEMP 36.8; O2SAT 97
--- NOTE | 2020-12-29 15:03 | NURSING ---
Pt refusing to have ankle wound changed today, pt stated he is in pain from sitting up in chair yesterday and does not think he could tolerate the dressing today, but says he will get it done tomorrow, attempted x2 and ousmane wound nurse stated she would see him today and offer to do it for him as well.
[2020-12-29 17:06] LABS: Bedside Glucose 125 mg/dL (70-110)
[2020-12-29 21:05] VITALS: PULSE 81; RESP 18
[2020-12-29] MEDS: Budesonide Respules 0.5 MG/2 ML AMPUL.NEB. INHALATION (21:05)
[2020-12-29 22:06] LABS: Bedside Glucose 126 mg/dL (70-110)
[2020-12-29] MEDS: Montelukast 10 MG Tablet PO (22:14)
[2020-12-29] MEDS: Latanoprost 0.005% 1 Bottle 1 DRP OPHTHALMIC (22:17)
[2020-12-30] MEDS: Pantoprazole Sodium 40 MG Tablet PO ×2 (06:22→18:02)
[2020-12-30] MEDS: guaiFENesin 600 MG Tablet PO ×2 (06:22→18:01)
[2020-12-30] MEDS: oxyCODONE 5 MG Tablet 15 MG PO ×2 (06:22→11:48)
[2020-12-30] MEDS: Furosemide 40 MG Tablet PO (06:22)
[2020-12-30] MEDS: Labetalol 200 MG Tablet PO ×2 (06:22→11:57)
[2020-12-30] MEDS: BRIMONIDINE 0.2% 5ML BOTTLE 1 DRP EACH EYE ×2 (06:23→18:07)
[2020-12-30] MEDS: Timolol 0.5% 5ML OPTH.BTL 1 DRP EACH EYE ×2 (06:23→18:08)
[2020-12-30 06:45] VITALS: PULSE 72; RESP 18; O2SAT 97
[2020-12-30] MEDS: Budesonide Respules 0.5 MG/2 ML AMPUL.NEB. INHALATION ×2 (06:45→18:29)
[2020-12-30] MEDS: Albuterol 2.5 MG/3 ML VIAL.NEB. INHALATION (06:45)
[2020-12-30 06:46] LABS: Bedside Glucose 97 mg/dL (70-110)
[2020-12-30] MEDS: LINAGLIPTIN 5 MG TABLET PO (09:43)
[2020-12-30] MEDS: Potassium Chloride Oral Tablet 20 MEQ PO (09:43)
[2020-12-30] MEDS: Tamsulosin HCl 0.4 MG Capsule PO (09:43)
[2020-12-30] MEDS: Multivitamins,Ther W-Minerals Tablet 1 TABLET PO (09:43)
[2020-12-30] MEDS: Loratadine 10 MG Tablet PO (09:43)
[2020-12-30] MEDS: Sertraline 50 MG Tablet 25 MG PO (09:43)
[2020-12-30] MEDS: HYDROmorphone 2 MG TABLET PO ×2 (09:47→18:06)
[2020-12-30] MEDS: Hydrocortisone 25 MG Suppository RC (09:48)
[2020-12-30] MEDS: Nystatin Powder 15gm Bottle 1 APPLIC TOPICAL ×2 (09:52→20:55)
[2020-12-30] MEDS: Pregabalin 50 MG Capsule PO ×2 (11:56→20:54)
--- NOTE | 2020-12-30 12:02 | NURSING ---
PT HAD DILAUDID AT 9:50 AM. PT THEN ASKED FOR OXYIR AND WAS GIVEN AT 11:55 BY RN. PT THEN CALLED OUT THIS NURSE WENT TO GIVE SCHEDULED MED TRANDATE AT 11:55 AND PT ASKED FOR HIS LYRICA THIS NURSE GAVE. PT THEN ASKED FOR BENADRYL. THIS NURSE STATED TO PT I DID NOT FEEL COMFORTABLE GIVING HIM ALL THOSE MEDS AT ONCE AND WOULD GIVE BENADRYL LATER BUT WOULD CONSULT THE RN FIRST. PT STATED TO THIS NURSE THAT SHE SHOULD LISTEN TO THE PT AND NOT HER MIND AND HEART. WILL CONTINUE TO MONITOR.RN AWARE
[2020-12-30 12:10] VITALS: BP 127/86; PULSE 75
[2020-12-30 12:10] LABS: Bedside Glucose 109 mg/dL (70-110)
--- NOTE | 2020-12-30 14:06 | WOUNDNOTE ---
Pt did allow this nurse to change the dressing to the RLE today. educated patient on the importance of daily dressing changes d/t the amount of drainage. Pt agreed to let the nurses change the dressing as well. This nurse will assess wounds at least twice weekly. Pt states understanding.
--- NOTE | 2020-12-30 14:08 | WOUNDNOTE ---
The open areas to buttocks are much improved today. the larger open areas remains to the right buttock, but there is a lot of surrounding epithelial tissue. will continue to the Triad cream.
[2020-12-30 16:00] VITALS: BP 99/53; PULSE 84; RESP 18; TEMP 37.2; O2SAT 94
[2020-12-30 16:46] LABS: Bedside Glucose 170 mg/dL (70-110)
[2020-12-30 18:29] VITALS: PULSE 84; RESP 18
--- NOTE | 2020-12-30 19:01 | NURSING ---
Addendum entered by Eleanor Polanco 12/30/20 19:27: New orders received from Dr. Hill. DC Oxycodone and Dilaudid. Start OxyContin 20 mg bid. Oxycodone 10 mg q8h PRN. Simon CARRINGTON verified orders with Dr. Hill. Original Note: Dr. Hill here to see patient in room at this time.
[2020-12-30] MEDS: oxyCODONE HCl Cr 10 MG Tablet 20 MG PO (20:54)
[2020-12-30] MEDS: Montelukast 10 MG Tablet PO (20:54)
[2020-12-30 20:57] VITALS: PULSE 76; RESP 18; O2SAT 96
[2020-12-30] MEDS: Latanoprost 0.005% 1 Bottle 1 DRP OPHTHALMIC (20:57)
[2020-12-30 21:45] LABS: Bedside Glucose 128 mg/dL (70-110)
[2020-12-31] MEDS: Furosemide 40 MG Tablet PO (06:16)
[2020-12-31] MEDS: Pantoprazole Sodium 40 MG Tablet PO ×2 (06:17→18:29)
[2020-12-31] MEDS: guaiFENesin 600 MG Tablet PO ×2 (06:17→18:26)
[2020-12-31] MEDS: Timolol 0.5% 5ML OPTH.BTL 1 DRP EACH EYE ×2 (06:18→18:34)
[2020-12-31] MEDS: BRIMONIDINE 0.2% 5ML BOTTLE 1 DRP EACH EYE ×2 (06:18→18:32)
[2020-12-31] MEDS: Nystatin Powder 15gm Bottle 1 APPLIC TOPICAL ×2 (06:19→18:41)
[2020-12-31 06:26] VITALS: BP 105/64; PULSE 158
[2020-12-31 06:26] LABS: Bedside Glucose 92 mg/dL (70-110)
--- NOTE | 2020-12-31 06:32 | NURSING ---
Addendum entered by Ingrid Craig 12/31/20 07:20: Notified Dr. Turcios about elevated heart rate. Per Dr. Turcios patient needs to take his labetalol, new orders at this time. Patient keeps requesting consult with Dr. Riley and refuses labetalol. Original Note: Obtained vitals for Morning med-pass. Patients heart rate 158. RN called to room. Patient stating it's SVT this is normal. I just need fluids. Then patient started to say he needs to see Dr. Cochran ANDRA. Patient denies any chest pain or discomfort. Dr. Turcios updated.
[2020-12-31 07:00] VITALS: PULSE 84; RESP 18; O2SAT 93
[2020-12-31] MEDS: Budesonide Respules 0.5 MG/2 ML AMPUL.NEB. INHALATION (07:00)
[2020-12-31] MEDS: Loratadine 10 MG Tablet PO (08:05)
[2020-12-31] MEDS: Potassium Chloride Oral Tablet 20 MEQ PO (08:06)
[2020-12-31] MEDS: LINAGLIPTIN 5 MG TABLET PO (08:06)
[2020-12-31] MEDS: Sertraline 50 MG Tablet 25 MG PO (08:06)
[2020-12-31] MEDS: Multivitamins,Ther W-Minerals Tablet 1 TABLET PO (08:06)
[2020-12-31] MEDS: Tamsulosin HCl 0.4 MG Capsule PO (08:09)
[2020-12-31] MEDS: oxyCODONE HCl Cr 10 MG Tablet 20 MG PO ×2 (08:10→19:58)
--- NOTE | 2020-12-31 09:22 | NURSING ---
Dr. Riley's office was called for consult per Dr. Turcios for pt request, [facility] staff stated they would update Dr. Riley on need for consult.
--- NOTE | 2020-12-31 09:56 | NURSING ---
This nurse spoke with pt regarding Dr. Ruth appointment and explained that Dr. Ruth is in Outpatient pavilion and pt would need to go via w/c if tolerable. Pt stated it was not urgent he just needs a new CPAP machine and stated he wants to wait until he is able to tolerate a w/c transfer. 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
[2020-12-31] MEDS: Labetalol 200 MG Tablet PO (11:13)
[2020-12-31] MEDS: oxyCODONE 5 MG Tablet 10 MG PO ×2 (11:13→14:39)
--- NOTE | 2020-12-31 11:16 | NURSING ---
Dr. Riley called this nurse and stated he does not need to see pt but he will stop in and at least talk to him and states he needs to take his labetalol as scheduled d/t his thoracic aortic aneurysm
--- NOTE | 2020-12-31 14:44 | MDS.RN ---
Information for the mds was obtained from review of the clinical record, interview of resident, staff, and direct observation of resident's care.
--- NOTE | 2020-12-31 14:47 | NURSING ---
Pt given PRN oxy around 11:15 per request before therapy. After therapy this nurse went to perform dressing change to right ankle and pt stated that he wanted pain medication prior to dressing change and rated his pain 8/10. This nurse explained that his prn oxycodone is Q8H and it is too early for his next dose, pt stated he could not tolerate dressing change without it. This nurse spoke with Dr. Hill and 1x 10mg oxycodone order given for dressing change, and N.O. for scheduled oxy at 10am daily before therapy. Pt updated on new orders and educated on him receiving scheduled dose before therapy so pt could save his prn dose for before dressing changes.
[2020-12-31 15:15] VITALS: BP 90/58; PULSE 105; RESP 17; TEMP 36.8; O2SAT 97
--- NOTE | 2020-12-31 15:37 | NURSING ---
Dr. Riley in today to see pt and stated after talking with patient gave new order to d/c labetalol and start lopressor 50mg BID
--- NOTE | 2020-12-31 15:43 | CON.PCM.CA_ITS ---
Assessment & Plan Assessment/Plan (1) Hypertension: PLAN: He does have a history of hypertension which appears to be well controlled at this particular time. However due to the relative periods of hypotension I would recommend that we discontinue the labetalol and put him on metoprolol 50 mg twice a day instead. We will continue to monitor him and see how he does. His previous echocardiogram within the last year demonstrated an ejection fraction which was preserved at 60%. (2) SVT (supraventricular tachycardia): PLAN: He has had intermittent supraventricular tachyarrhythmia some of which may be due to beta-lupis withdrawal. I would recommend that we switch him to the labetalol and see how he does on that therapy. No other major changes will be made. I discussed this with him, his and his daughter. I will see him on an as-needed basis. Thank you for allowing me to participate in the care of your patient. Please don't hesitate to call if any issues arise. HPI Consult Data Date of Consult: 12/31/20 HPI Narrative HPI Narrative: PRECIOUS CHI, is a 65 M who presents to [facility] transitional care unit for rehabilitation after being hospitalized at [facility] for worsening weakness. He apparently had been admitted there for an orthopedic problem. 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 He is also had previous DVTs for which he has had an IVC filter placed. He has had venous stasis ulcers of the right leg and has been admitted for intravenous antibiotics. He has had some episodes of supraventricular tachyarrhythmia and has been managed on labetalol for his blood pressure. He has been hypotensive somewhat and therefore has not been very compliant with his medications and has been having some breakthrough supraventricular tachyarrhythmias. Cardiology was consulted for follow-up visit and management of this. [facility] Medical History Acute respiratory failure with hypoxia and hypercapnia Anemia Arthritis aspiration of left knee Bilateral pulmonary infiltrates on CXR BPH (benign prostatic hyperplasia) Bradycardia Cardiology follow-up encounter Chronic cutaneous venous stasis ulcer Chronic diastolic (congestive) heart failure Chronic kidney disease, stage 3 Chronic venous insufficiency Chronic venous stasis dermatitis COPD (chronic obstructive pulmonary disease) Debility Diabetes Disability of walking Essential (primary) hypertension Excoriation of multiple sites (~07/2020) Former smoker Generalized weakness GERD (gastroesophageal reflux disease) Glaucoma 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 History of CHF (congestive heart failure) History of edema History of GI bleed History of renal disease History of ulceration Hx of cataract Hyperlipidemia Hypertension Kidney stones Lip swelling Low testosterone in male Lower extremity weakness Morbid obesity MRSA (methicillin resistant Staphylococcus aureus) infection Non-healing ulcer of multiple sites, limited to breakdown of skin Normocytic anemia Obesity ADELAIDE (obstructive sleep apnea) Osteoarthritis Pressure ulcer Pseudomonas aeruginosa infection Secondary pulmonary arterial hypertension Shortness of breath Shortness of breath on exertion Sleep apnea Stage 2 moderate COPD by GOLD classification Thoracic aortic aneurysm without rupture Tobacco use Type 2 diabetes mellitus Ulcer of right lower extremity Wears glasses Home Medications brimonidine 0.2 % eye drops 1 drp OPHTHALMIC BID ml 05/04/18 [History Last Taken Unknown] dorzolamide 2 %-timolol 0.5 % (PF) eye drops 1 drp OPHTHALMIC BID 05/04/18 [History Last Taken Unknown] omeprazole 20 mg capsule,delayed release 20 mg PO DAILY 05/04/18 [History Last Taken Unknown] tamsulosin 0.4 mg capsule 0.4 mg PO DAILY@0800 05/30/18 [History Last Taken Unknown] latanoprost 0.005 % eye drops 1 drp OPHTHALMIC QPM 09/06/18 [History Last Taken Unknown] oxygen MISCELLANEOUS 12/06/18 [History Last Taken Unknown] cholecalciferol (vitamin D3) 1,250 mcg (50,000 unit) tablet 50,000 unit PO QWEEK #10 tab 02/04/19 [Rx Last Taken Unknown] labetalol 200 mg tablet 200 mg PO 0600,1200,2200 tab 08/28/19 [History Last Taken Unknown] Lift Chair #1 ea 07/03/20 [Rx Last Taken Unknown] furosemide 40 mg tablet 40 mg PO BID #180 tab 08/07/20 [Rx Last Taken Unknown] B.ani-L.aci-L.yoana-L.plan-L.zayda [Probiotic Formula] 1 cap PO BID 12/20/20 [History Last Taken Unknown] acetaminophen 650 mg PO Q8H PRN PRN 12/20/20 [History Last Taken Unknown] albuterol sulfate 2.5 mg INHALATION Q6H PRN PRN 12/20/20 [History Last Taken Unknown] budesonide 0.5 mg INHALATION BID 12/20/20 [History Last Taken Unknown] diphenhydramine HCl 25 mg PO Q4H PRN 12/20/20 [History Last Taken Unknown] docusate sodium 100 mg PO BID 12/20/20 [History Last Taken Unknown] ferrous sulfate 325 mg PO TIDCM 12/20/20 [History Last Taken Unknown] fluticasone propion-salmeterol [Wixela Inhub] 1 inh INHALATION BID 12/20/20 [History Last Taken Unknown] guaifenesin 600 mg PO BID 12/20/20 [History Last Taken Unknown] linagliptin [Tradjenta] 5 mg PO DAILY@0800 12/20/20 [History Last Taken Unknown] loratadine 10 mg PO DAILY@0800 12/20/20 [History Last Taken Unknown] montelukast 10 mg PO QHS 12/20/20 [History Last Taken Unknown] multivitamin,vp-sbcv-Fe-FA-min [Multivitamin And Mineral] 1 tab PO DAILY@0800 12/20/20 [History Last Taken Unknown] oxycodone 15 mg PO Q3H PRN 12/20/20 [History Last Taken Unknown] pantoprazole [Protonix] 40 mg PO BID 12/20/20 [History Last Taken Unknown] pramoxine-mineral oil-zinc [Anusol] 1 ea TOPICAL TID PRN PRN 12/20/20 [History Last Taken Unknown] pregabalin 50 mg PO 0600,2100 12/20/20 [History Last Taken Unknown] sertraline 25 mg PO DAILY@0800 12/20/20 [History Last Taken Unknown] tiotropium bromide [Spiriva Respimat] 2 puff INHALATION DAILY 12/20/20 [History Last Taken Unknown] Allergy/AdvReac Type Severity Reaction Status Date / Time lisinopril Allergy Severe Angioedema Verified 10/24/20 15:56 Sulfa (Sulfonamide AdvReac Other Verified 10/24/20 15:56 Antibiotics) chapstick Allergy swelling Uncoded 10/24/20 15:56 Family History Father Cancer Mother Asthma Surgical History History of carpal tunnel surgery of right wrist History of cataract extraction Social History household members: spouse Smoking Status: Former smoker second hand exposure: No alcohol intake: current alcohol intake frequency: a few times a week substance use type: does not use caffeine: No what type of physical activity do you participate in: none ROS Constitutional Constitutional: Denies fever(s) or weight loss Eyes Eyes: Reports systems reviewed and no addt'l complaints, except as documented ENT HEENT: Reports systems reviewed and no addt'l complaints, except as documented Cardiovascular Cardiovascular: Denies chest pain at rest, chest pain with activity, dyspnea at rest, dyspnea on exertion, edema, palpitations or paroxysmal nocturnal dyspnea Respiratory/Chest Respiratory/Chest: Denies dyspnea on exertion, productive cough, shortness of breath at rest or shortness of breath with exertion Gastrointestinal Gastrointestinal: Denies change in bowel habits, nausea, vomiting or weight changes Genitourinary Genitourinary: Denies difficulty urinating Musculoskeletal Musculoskeletal: Denies joint stiffness or muscle weakness Integumentary Integumentary: Denies lesions Neurologic Neurologic: Denies dizziness or syncope Psychiatric Psychiatric: Denies anxiety Endocrine Endocrinology: Denies excessive sweating or fatigue Hematologic/Lymphatic Hematologic/Lymphatic: Denies anemia Allergic/Immunologic Allergic/Immunologic: Denies seasonal rhinorrhea Physical Exam Const alert, oriented x3 and no apparent distress General Appearance: cooperative HEENT hearing grossly normal bilaterally Head and Scalp: atraumatic Eyes EOMs intact bilaterally Neck General: normal visual inspection Chest inspection of chest normal and palpation of chest normal Resp normal respiratory effort Auscultation: clear to auscultation bilaterally Cardio regular rate, regular rhythm, S1 normal heart sound and S2 normal heart sound Jugular Venous Distention: JVD GI normal to inspection, nondistended, normoactive bowel sounds Extremity normal capillary refill and no pedal edema Peripheral Pulses: Yes pulses 2+ throughout and femoral pulses present Skin no rashes or lesions noted General Skin Exam: venous stasis Lesions: lesion noted Neuro oriented x3 and CN's II-XII intact bilaterally Psych Appearance: grossly normal and appropriate Risk Stratification Risk Stratification Applicable: No Objective Data Vital Signs: Vital Signs Temp Pulse Resp BP Pulse Ox 98.3 F 105 H 17 90/58 L 97 12/31/20 15:15 12/31/20 15:15 12/31/20 15:15 12/31/20 15:15 12/31/20 15:15 Oxygen Flow Rate (L/min) 3 Oxygen Delivery Method Room Air Weight: 258 lb 1 oz Body Mass Index (BMI) 39.8 Intake & Output: Intake and Output for Last 24 Hours 12/29/20 12/30/20 12/31/20 23:59 23:59 23:59 Intake Total 480 / 480 600 / 600 720 / 720 Output Total 850 / 850 Balance -370 / -370 600 / 600 720 / 720 Lab / Micro Data Result Diagrams: 12/28/20 06:01 12/28/20 06:01 Labs: Laboratory Results - last 24 hr 12/30/20 16:31: POC Glucose 170 H 12/30/20 21:34: POC Glucose 128 H 12/31/20 06:20: POC Glucose 92 Micro: Microbiology 12/28/20 12:55 Wound - Leg, Left Gram Stain - Final 12/28/20 12:55 Wound - Leg, Left Wound Culture - Preliminary Pseudomonas aeroginosa Klebsiella pneumoniae sp pneum Coag Negative Staph Cardiology Labs/Tests Rhythm: EKG: Normal sinus rhythm with intermittent supraventricular narrow complex tachycardia ECHO: Stress Test: Cardiac Cath: PCI: CT Surgery: Holter monitor: EPS: PPM: CXR: Chest CT Scan:
[2020-12-31] MEDS: Acetaminophen 500 MG Tablet 1000 MG PO (18:25)
[2020-12-31 18:30] VITALS: BP 118/64; PULSE 113
[2020-12-31] MEDS: Metoprolol Tartrate 50 MG Tablet PO (18:30)
[2020-12-31 19:11] LABS: Bedside Glucose 120 mg/dL (70-110)
[2020-12-31 21:36] LABS: Bedside Glucose 156 mg/dL (70-110)
[2020-12-31] MEDS: Montelukast 10 MG Tablet PO (21:36)
[2020-12-31] MEDS: Pregabalin 50 MG Capsule PO (21:36)
[2020-12-31] MEDS: Latanoprost 0.005% 1 Bottle 1 DRP OPHTHALMIC (21:36)
[2020-12-31 22:00] LABS: Bedside Glucose 150 mg/dL (70-110)
[2021-01-01 06:21] LABS: Bedside Glucose 92 mg/dL (70-110)
[2021-01-01] MEDS: Pregabalin 50 MG Capsule PO ×2 (06:38→20:50)
[2021-01-01] MEDS: Furosemide 40 MG Tablet PO (06:38)
[2021-01-01] MEDS: guaiFENesin 600 MG Tablet PO ×2 (06:38→17:08)
[2021-01-01 06:39] VITALS: BP 110/70; PULSE 76
[2021-01-01] MEDS: BRIMONIDINE 0.2% 5ML BOTTLE 1 DRP EACH EYE ×2 (06:39→17:11)
[2021-01-01] MEDS: Pantoprazole Sodium 40 MG Tablet PO ×2 (06:39→17:06)
[2021-01-01] MEDS: Nystatin Powder 15gm Bottle 1 APPLIC TOPICAL ×2 (06:39→17:09)
[2021-01-01] MEDS: Timolol 0.5% 5ML OPTH.BTL 1 DRP EACH EYE ×2 (06:39→17:11)
[2021-01-01] MEDS: Metoprolol Tartrate 50 MG Tablet PO (06:39)
[2021-01-01] MEDS: Tamsulosin HCl 0.4 MG Capsule PO (08:15)
[2021-01-01] MEDS: Potassium Chloride Oral Tablet 20 MEQ PO (08:15)
[2021-01-01] MEDS: Sertraline 50 MG Tablet 25 MG PO (08:16)
[2021-01-01] MEDS: LINAGLIPTIN 5 MG TABLET PO (08:16)
[2021-01-01] MEDS: Multivitamins,Ther W-Minerals Tablet 1 TABLET PO (08:16)
[2021-01-01] MEDS: oxyCODONE HCl Cr 10 MG Tablet 20 MG PO ×2 (08:17→20:50)
[2021-01-01] MEDS: Loratadine 10 MG Tablet PO (08:17)
[2021-01-01] MEDS: oxyCODONE 5 MG Tablet 10 MG PO ×3 (10:04→22:52)
[2021-01-01] MEDS: Ergocalciferol 1.25 MG (50, 000 UNIT) Capsule PO (10:04)
[2021-01-01 11:16] LABS: Bedside Glucose 124 mg/dL (70-110)
[2021-01-01] MEDS: levoFLOXacin 500 MG Tablet PO (14:11)
[2021-01-01 15:15] VITALS: BP 102/55; PULSE 77; RESP 16; TEMP 36.6; O2SAT 99
[2021-01-01 16:25] LABS: Bedside Glucose 154 mg/dL (70-110)
[2021-01-01] MEDS: HYDROmorphone 2 MG TABLET 1 MG PO (17:04)
[2021-01-01 18:49] VITALS: BP 93/57; PULSE 80
[2021-01-01 19:20] VITALS: PULSE 80; RESP 17
[2021-01-01] MEDS: Budesonide Respules 0.5 MG/2 ML AMPUL.NEB. INHALATION (19:20)
[2021-01-01] MEDS: Montelukast 10 MG Tablet PO (20:51)
[2021-01-01] MEDS: Latanoprost 0.005% 1 Bottle 1 DRP OPHTHALMIC (20:54)
[2021-01-01 21:55] LABS: Bedside Glucose 146 mg/dL (70-110)
[2021-01-02] VITALS (7 sets, daily range): BP systolic 92–130; BP diastolic 57–75; PULSE 79–111; RESP 18–20; TEMP 36.9; O2SAT 91–99
[2021-01-02] MEDS: HYDROmorphone 2 MG TABLET 1 MG PO ×3 (02:30→23:42)
[2021-01-02] MEDS: Pregabalin 50 MG Capsule PO ×2 (05:59→21:53)
[2021-01-02] MEDS: Timolol 0.5% 5ML OPTH.BTL 1 DRP EACH EYE ×2 (05:59→18:06)
[2021-01-02] MEDS: guaiFENesin 600 MG Tablet PO ×2 (06:00→18:03)
[2021-01-02] MEDS: BRIMONIDINE 0.2% 5ML BOTTLE 1 DRP EACH EYE ×2 (06:00→18:07)
[2021-01-02] MEDS: levoFLOXacin 500 MG Tablet PO (06:00)
[2021-01-02] MEDS: Pantoprazole Sodium 40 MG Tablet PO ×2 (06:00→18:03)
[2021-01-02] MEDS: Furosemide 40 MG Tablet PO (06:00)
[2021-01-02] MEDS: Nystatin Powder 15gm Bottle 1 APPLIC TOPICAL ×2 (06:00→18:03)
[2021-01-02] MEDS: Metoprolol Tartrate 50 MG Tablet PO ×2 (06:01→18:03)
[2021-01-02 06:30] LABS: Bedside Glucose 95 mg/dL (70-110)
[2021-01-02] MEDS: Budesonide Respules 0.5 MG/2 ML AMPUL.NEB. INHALATION ×2 (07:20→19:05)
[2021-01-02] MEDS: oxyCODONE HCl Cr 10 MG Tablet 20 MG PO ×2 (08:59→20:05)
[2021-01-02] MEDS: Tamsulosin HCl 0.4 MG Capsule PO (08:59)
[2021-01-02] MEDS: Potassium Chloride Oral Tablet 20 MEQ PO (08:59)
[2021-01-02] MEDS: Loratadine 10 MG Tablet PO (08:59)
[2021-01-02] MEDS: Sertraline 50 MG Tablet 25 MG PO (09:00)
[2021-01-02] MEDS: LINAGLIPTIN 5 MG TABLET PO (09:00)
[2021-01-02] MEDS: Multivitamins,Ther W-Minerals Tablet 1 TABLET PO (09:00)
[2021-01-02] MEDS: oxyCODONE 5 MG Tablet 10 MG PO (11:05)
[2021-01-02 11:20] LABS: Bedside Glucose 127 mg/dL (70-110)
[2021-01-02 17:11] LABS: Bedside Glucose 143 mg/dL (70-110)
[2021-01-02] MEDS: Acetaminophen 500 MG Tablet 1000 MG PO (18:15)
[2021-01-02 21:46] LABS: Bedside Glucose 153 mg/dL (70-110)
[2021-01-02] MEDS: Latanoprost 0.005% 1 Bottle 1 DRP OPHTHALMIC (21:48)
[2021-01-02] MEDS: Montelukast 10 MG Tablet PO (21:48)
--- NOTE | 2021-01-02 23:45 | NURSING ---
Pt repositioned in bed for comfort, assisted with putting cpap on. No distress noted, denies further needs.
[2021-01-03 06:31] LABS: Bedside Glucose 90 mg/dL (70-110)
[2021-01-03 07:00] VITALS: BP 124/65; PULSE 75
[2021-01-03] MEDS: levoFLOXacin 500 MG Tablet PO (07:00)
[2021-01-03] MEDS: guaiFENesin 600 MG Tablet PO ×2 (07:00→17:53)
[2021-01-03] MEDS: Pantoprazole Sodium 40 MG Tablet PO ×2 (07:00→17:54)
[2021-01-03] MEDS: Furosemide 40 MG Tablet PO (07:00)
[2021-01-03] MEDS: Metoprolol Tartrate 50 MG Tablet PO ×2 (07:00→17:53)
[2021-01-03] MEDS: BRIMONIDINE 0.2% 5ML BOTTLE 1 DRP EACH EYE ×2 (07:01→18:04)
[2021-01-03] MEDS: Timolol 0.5% 5ML OPTH.BTL 1 DRP EACH EYE ×2 (07:01→18:01)
[2021-01-03 07:55] VITALS: PULSE 74; RESP 18; O2SAT 94
[2021-01-03] MEDS: Budesonide Respules 0.5 MG/2 ML AMPUL.NEB. INHALATION ×2 (07:55→19:55)
[2021-01-03] MEDS: Multivitamins,Ther W-Minerals Tablet 1 TABLET PO (08:42)
[2021-01-03] MEDS: Loratadine 10 MG Tablet PO (08:42)
[2021-01-03] MEDS: Potassium Chloride Oral Tablet 20 MEQ PO (08:43)
[2021-01-03] MEDS: LINAGLIPTIN 5 MG TABLET PO (08:43)
[2021-01-03] MEDS: Sertraline 50 MG Tablet 25 MG PO (08:43)
[2021-01-03] MEDS: Tamsulosin HCl 0.4 MG Capsule PO (08:44)
[2021-01-03] MEDS: oxyCODONE HCl Cr 10 MG Tablet 20 MG PO ×2 (08:47→20:00)
[2021-01-03] MEDS: oxyCODONE 5 MG Tablet 10 MG PO ×2 (11:18→15:25)
[2021-01-03 11:35] LABS: Bedside Glucose 114 mg/dL (70-110)
[2021-01-03 15:51] VITALS: BP 107/52; PULSE 82; RESP 16; TEMP 37.4; O2SAT 92
[2021-01-03 16:51] LABS: Bedside Glucose 124 mg/dL (70-110)
[2021-01-03 17:53] VITALS: BP 107/52; PULSE 82
[2021-01-03] MEDS: Acetaminophen 500 MG Tablet 1000 MG PO (18:00)
[2021-01-03 19:55] VITALS: PULSE 79; RESP 18
[2021-01-03 21:21] LABS: Bedside Glucose 131 mg/dL (70-110)
[2021-01-03] MEDS: Hydrocortisone 25 MG Suppository RC (22:03)
[2021-01-03] MEDS: Latanoprost 0.005% 1 Bottle 1 DRP OPHTHALMIC (22:04)
[2021-01-03] MEDS: Montelukast 10 MG Tablet PO (22:06)
[2021-01-03] MEDS: Pregabalin 50 MG Capsule PO (22:06)
[2021-01-04 05:38] VITALS: BP 133/78; PULSE 82
[2021-01-04] MEDS: oxyCODONE 5 MG Tablet 10 MG PO ×3 (05:38→15:48)
[2021-01-04 05:39] VITALS: BP 133/78; PULSE 82
[2021-01-04] MEDS: Furosemide 40 MG Tablet PO (05:39)
[2021-01-04] MEDS: Metoprolol Tartrate 50 MG Tablet PO ×2 (05:39→17:37)
[2021-01-04] MEDS: guaiFENesin 600 MG Tablet PO (05:39)
[2021-01-04] MEDS: levoFLOXacin 500 MG Tablet PO (05:39)
[2021-01-04] MEDS: Pantoprazole Sodium 40 MG Tablet PO ×2 (05:39→17:38)
[2021-01-04] MEDS: Timolol 0.5% 5ML OPTH.BTL 1 DRP EACH EYE ×2 (05:40→17:41)
[2021-01-04] MEDS: BRIMONIDINE 0.2% 5ML BOTTLE 1 DRP EACH EYE ×2 (05:40→17:41)
[2021-01-04 06:21] LABS: Bedside Glucose 118 mg/dL (70-110)
[2021-01-04 07:09] LABS: Absolute Lymphocyte Count 1.74 X10^3/uL (0.83-4.51); Absolute Neutrophil Count 6.7 X10^3/uL (2.0-7.7); Basophil# 0.03 X10^3/uL; Basophil% 0.3 % (0-1); Eosinophil# 0.91 X10^3/uL; Eosinophils% 8.9 % (0-5); Hematocrit 29.2 % (40-54); Hemoglobin 8.5 g/dL (13.0-16.5); Lymphocyte # 1.74 X10^3/ul (0.83-4.51); Mean Corp Hgb Conc 29.1 g/dL (32-36); Mean Corpuscular Hgb 27.1 pg (27.0-32.0); Mean Platelet Vol. 9.7 fl (6.2-12.0); Monocyte# 0.81 X10^3/uL; Monocyte% 7.9 % (0-10); NRBC Flagged by Analyzer 0 % (0-5); Neutrophil # 6.68 X10^3/uL (2.7-7.7); Neutrophil % 65.5 % (47-70); Platelet Count 401 K/mm3 (150-450); RBC Distribution Width CV 16.5 % (11.6-14.6); RBC Distribution Width SD 56.2 fl (35.1-43.9); Red Blood Count 3.14 M/mm3 (4.6-6.2); White Blood Count 10.2 K/mm3 (4.4-11.0)
[2021-01-04 07:37] LABS: Anion Gap 5 (5-15); BUN 38 mg/dL (7-18); BUN/Creat Ratio 27.5 RATIO (10-20); Calcium,Total 9.2 mg/dL (8.5-10.1); Chloride 99 mmol/L (98-107); Creatinine, Serum 1.38 mg/dL (0.70-1.30); EST Glomerular Filtration Rate 55 mL/min (>60); Est Glom Filt Rate - Afr Amer 66 mL/min (>60); Estimated Creatinine Clearance 52.65 ml/min; Glucose 115 mg/dL (74-106); Sodium Level 141 mmol/L (136-145)
[2021-01-04] MEDS: Loratadine 10 MG Tablet PO (08:34)
[2021-01-04] MEDS: Tamsulosin HCl 0.4 MG Capsule PO (08:34)
[2021-01-04] MEDS: Multivitamins,Ther W-Minerals Tablet 1 TABLET PO (08:35)
[2021-01-04] MEDS: LINAGLIPTIN 5 MG TABLET PO (08:35)
[2021-01-04] MEDS: Potassium Chloride Oral Tablet 20 MEQ PO (08:35)
[2021-01-04] MEDS: Sertraline 50 MG Tablet 25 MG PO (08:36)
[2021-01-04] MEDS: oxyCODONE HCl Cr 10 MG Tablet 20 MG PO ×2 (08:37→20:18)
[2021-01-04] MEDS: Pregabalin 25 MG Capsule PO ×2 (09:37→20:17)
--- NOTE | 2021-01-04 10:36 | CASEMGMT ---
Social Work Patient request for social work to look into option of patient obtaining new Cpap without seeing Dr. Ruth. Telephone call to Dr. Ruth's office, Debbie. Per Debbie patient is actually a patient of Dr. Daugherty. This social worker palliative care posed patient question. Debbie to speak with Dr. Daugherty and get back to this social worker palliative care. Patient updated on above. Social work to continue to follow. Rustam ROSE, LAZAROS
[2021-01-04 10:50] LABS: Bedside Glucose 131 mg/dL (70-110)
--- NOTE | 2021-01-04 12:44 | NURSING ---
Pt requesting lower dose of lyrica d/t excess drowsiness, Dr. Turcios updated and lyrica changed to 25mg
[2021-01-04] MEDS: HYDROmorphone 2 MG TABLET 1 MG PO (12:54)
--- NOTE | 2021-01-04 15:32 | WOUNDNOTE ---
wound photo: right lower leg
--- NOTE | 2021-01-04 15:34 | WOUNDNOTE ---
wound photo: buttocks
[2021-01-04 16:00] VITALS: BP 119/82; PULSE 89; RESP 18; TEMP 36.6; O2SAT 96
[2021-01-04 16:36] LABS: Bedside Glucose 111 mg/dL (70-110)
[2021-01-04 17:37] VITALS: PULSE 89
[2021-01-04] MEDS: Nystatin Powder 15gm Bottle 1 APPLIC TOPICAL (17:38)
[2021-01-04] MEDS: Acetaminophen 500 MG Tablet 1000 MG PO (17:45)
[2021-01-04 18:48] VITALS: PULSE 86; RESP 18; O2SAT 95
[2021-01-04] MEDS: Budesonide Respules 0.5 MG/2 ML AMPUL.NEB. INHALATION (18:48)
[2021-01-04] MEDS: Montelukast 10 MG Tablet PO (20:17)
[2021-01-04] MEDS: Latanoprost 0.005% 1 Bottle 1 DRP OPHTHALMIC (20:19)
[2021-01-04 21:15] LABS: Bedside Glucose 143 mg/dL (70-110)
[2021-01-05 06:15] LABS: Bedside Glucose 93 mg/dL (70-110)
[2021-01-05] MEDS: levoFLOXacin 500 MG Tablet PO (06:27)
[2021-01-05] MEDS: guaiFENesin 600 MG Tablet PO ×2 (06:27→17:05)
[2021-01-05] MEDS: Furosemide 40 MG Tablet PO (06:27)
[2021-01-05] MEDS: Pantoprazole Sodium 40 MG Tablet PO ×2 (06:31→17:05)
[2021-01-05] MEDS: Pregabalin 25 MG Capsule PO ×2 (06:31→20:30)
[2021-01-05] MEDS: BRIMONIDINE 0.2% 5ML BOTTLE 1 DRP EACH EYE ×2 (06:35→17:02)
[2021-01-05] MEDS: Timolol 0.5% 5ML OPTH.BTL 1 DRP EACH EYE ×2 (06:36→17:02)
[2021-01-05 06:37] VITALS: BP 138/76; PULSE 71
[2021-01-05] MEDS: Metoprolol Tartrate 50 MG Tablet PO ×2 (06:37→17:05)
[2021-01-05 07:05] VITALS: PULSE 72; RESP 18; O2SAT 99
[2021-01-05] MEDS: Budesonide Respules 0.5 MG/2 ML AMPUL.NEB. INHALATION ×2 (07:05→19:16)
[2021-01-05] MEDS: Multivitamins,Ther W-Minerals Tablet 1 TABLET PO (09:21)
[2021-01-05] MEDS: Potassium Chloride Oral Tablet 20 MEQ PO (09:21)
[2021-01-05] MEDS: Tamsulosin HCl 0.4 MG Capsule PO (09:21)
[2021-01-05] MEDS: Loratadine 10 MG Tablet PO (09:21)
[2021-01-05] MEDS: LINAGLIPTIN 5 MG TABLET PO (09:22)
[2021-01-05] MEDS: Sertraline 50 MG Tablet 25 MG PO (09:22)
[2021-01-05] MEDS: oxyCODONE HCl Cr 10 MG Tablet 20 MG PO ×2 (09:23→20:30)
[2021-01-05] MEDS: oxyCODONE 5 MG Tablet 10 MG PO ×2 (10:43→16:43)
[2021-01-05 10:55] LABS: Bedside Glucose 127 mg/dL (70-110)
[2021-01-05 14:17] VITALS: BP 113/74; PULSE 67; RESP 16; TEMP 36.8; O2SAT 100
[2021-01-05 16:26] LABS: Bedside Glucose 143 mg/dL (70-110)
[2021-01-05] MEDS: Acetaminophen 500 MG Tablet 1000 MG PO (16:43)
[2021-01-05] MEDS: Hydrocortisone 25 MG Suppository RC (16:44)
[2021-01-05 17:05] VITALS: BP 113/74; PULSE 67
--- NOTE | 2021-01-05 17:28 | NURSING ---
THIS NURSE GAVE THE BOOSTER SHOT MODERNA IN LEFT DELT. PT TOLERATED WELL. WILL CONTINUE TO MONITOR.
--- NOTE | 2021-01-05 17:30 | RAD_ITS ---
INDICATION: Pain, unable to bear weight. EXAMINATION/TECHNIQUE: X-RAY - LEFT XR Knee 3 Views 3 VIEWS COMPARISON: 09/04/2020 left knee x-rays FINDINGS: There is advanced tricompartmental osteoarthritis most severely involving the heel femoral compartment where there is [id number] appearance and subchondral sclerosis and cystic changes. There is a knee joint effusion. There is much less severe lateral femoral compartment degenerative bony proliferative changes lateral femoral condyle and lateral tibial plateau. There is osteophytosis of the superior pole of patella. No fracture, focal osseous lesion or malalignment. Peripheral atherosclerotic vascular calcifications posterior to the knee. RAD/Knee 3 Views IMPRESSION: Tricompartmental osteoarthritis most severely involving the medial femoral compartment. Joint effusion. Peripheral atherosclerosis. Electronically Signed: Bhupinder Warren DO at 23:54 EDT Tel , Service support ,
[2021-01-05 19:16] VITALS: PULSE 79; RESP 17
--- NOTE | 2021-01-05 19:33 | NURSING ---
DR. SON NOTIFIED OF NEEDING CONSULT ORDER FOR PT LEFT KNEE WITH ASHLEY. ORDERS FOR X RAYS TO KNEE TO BE TAKEN PER ORDERS. THIS NURSE CALLED [facility] OFF[facility] EARLIER IN THE DAY. RN AWARE
--- NOTE | 2021-01-05 19:34 | NURSING ---
This Nurse attempted to do patient's assessment at this time and doing dressing change to RLE. Patient refused and stated, Maybe later. Not right now.
[2021-01-05] MEDS: Montelukast 10 MG Tablet PO (20:30)
[2021-01-05] MEDS: Latanoprost 0.005% 1 Bottle 1 DRP OPHTHALMIC (20:31)
[2021-01-05 21:21] LABS: Bedside Glucose 147 mg/dL (70-110)
[2021-01-05 22:27] VITALS: PULSE 78; RESP 18; O2SAT 96
[2021-01-05] MEDS: HYDROmorphone 2 MG TABLET 1 MG PO (22:29)
[2021-01-06 06:25] LABS: Bedside Glucose 95 mg/dL (70-110)
[2021-01-06] MEDS: Pantoprazole Sodium 40 MG Tablet PO ×2 (06:29→17:20)
[2021-01-06] MEDS: guaiFENesin 600 MG Tablet PO ×2 (06:29→17:20)
[2021-01-06] MEDS: levoFLOXacin 500 MG Tablet PO (06:29)
[2021-01-06 06:30] VITALS: BP 130/77; PULSE 75
[2021-01-06] MEDS: Furosemide 40 MG Tablet PO (06:30)
[2021-01-06] MEDS: Metoprolol Tartrate 50 MG Tablet PO ×2 (06:30→17:21)
[2021-01-06] MEDS: BRIMONIDINE 0.2% 5ML BOTTLE 1 DRP EACH EYE ×2 (06:31→17:11)
[2021-01-06] MEDS: Timolol 0.5% 5ML OPTH.BTL 1 DRP EACH EYE ×2 (06:31→17:20)
[2021-01-06 06:35] LABS: Anion Gap 2 (5-15); BUN 33 mg/dL (7-18); Calcium,Total 9.3 mg/dL (8.5-10.1); Chloride 99 mmol/L (98-107); Creatinine, Serum 1.27 mg/dL (0.70-1.30); EST Glomerular Filtration Rate 60 mL/min (>60); Est Glom Filt Rate - Afr Amer 73 mL/min (>60); Estimated Creatinine Clearance 57.22 ml/min; Glucose 105 mg/dL (74-106); Potassium 3.8 mmol/L (3.5-5.1); Sodium Level 140 mmol/L (136-145)
[2021-01-06 06:36] VITALS: BP 130/77; RESP 16; TEMP 36.5; O2SAT 98
[2021-01-06] MEDS: Budesonide Respules 0.5 MG/2 ML AMPUL.NEB. INHALATION ×2 (07:45→19:59)
[2021-01-06 07:48] VITALS: PULSE 77; RESP 20; O2SAT 98
[2021-01-06] MEDS: LINAGLIPTIN 5 MG TABLET PO (08:50)
[2021-01-06] MEDS: Potassium Chloride Oral Tablet 20 MEQ PO (08:50)
[2021-01-06] MEDS: Tamsulosin HCl 0.4 MG Capsule PO (08:50)
[2021-01-06] MEDS: Multivitamins,Ther W-Minerals Tablet 1 TABLET PO (08:50)
[2021-01-06] MEDS: Sertraline 50 MG Tablet 25 MG PO (08:50)
[2021-01-06] MEDS: Loratadine 10 MG Tablet PO (08:50)
[2021-01-06] MEDS: oxyCODONE HCl Cr 10 MG Tablet 20 MG PO ×2 (08:52→20:06)
[2021-01-06] MEDS: oxyCODONE 5 MG Tablet 10 MG PO ×2 (09:42→16:10)
[2021-01-06 11:20] LABS: Bedside Glucose 136 mg/dL (70-110)
[2021-01-06] MEDS: HYDROmorphone 2 MG TABLET 1 MG PO (11:54)
--- NOTE | 2021-01-06 13:14 | NURSING ---
Dr. Kolb's nurse called this nurse and stated he would be in this evening fore
--- NOTE | 2021-01-06 13:15 | NURSING ---
Addendum entered by Mer Ellis 01/06/21 16:41: Dr. Kolb in today and performed left knee aspiration at bedside, no culture needed at this time. Original Note: Dr. Kolb's nurse called this nurse and stated he would be in this evening to aspirate pt's knee, synovial fluid tubes placed at bedside per request.
--- NOTE | 2021-01-06 15:47 | CON.PCM_ITS ---
Assessment & Plan Assessment/Plan (1) Left knee DJD: QUALIFIERS: Osteoarthritis type: primary Qualified Code(s): M17.12 - Unilateral primary osteoarthritis, left knee PLAN: Patient has severe left knee DJD he does not have a significant joint effusion upon evaluation however he is requesting to have it aspirated anyway because of multiple aspirations in the past have given him some relief. He is not a candidate for a steroid injection at this time with his active infections. Nor is he a candidate for PRP injections for the foreseeable future. I did perform an aspiration of the left knee with 9 cc of blood-tinged synovial fluid aspirated under sterile technique there is no sign of infection or inflammatory process in the fluid was not sent for analysis. PT OT weightbearing as tolerated. Patient may have aspirations with Dr. Mcconnell under ultrasound per his request as an outpatient in the future. HPI Consult Data Date of Consult: 01/06/21 HPI Narrative HPI Narrative: BHUPINDER CHI, is a 65 M who presents with chronic left knee pain known DJD history of multiple aspiration steroid injections with Dr. Mcconnell under ultrasound requesting to have his left knee aspirated no significant changes as of recent [facility] Medical History Acute respiratory failure with hypoxia and hypercapnia Anemia Arthritis aspiration of left knee Bilateral pulmonary infiltrates on CXR BPH (benign prostatic hyperplasia) Bradycardia Cardiology follow-up encounter Chronic cutaneous venous stasis ulcer Chronic diastolic (congestive) heart failure Chronic kidney disease, stage 3 Chronic venous insufficiency Chronic venous stasis dermatitis COPD (chronic obstructive pulmonary disease) Debility Diabetes Disability of walking Essential (primary) hypertension Excoriation of multiple sites (~07/2020) Former smoker Generalized weakness GERD (gastroesophageal reflux disease) Glaucoma 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 History of CHF (congestive heart failure) History of edema History of GI bleed History of renal disease History of ulceration Hx of cataract Hyperlipidemia Hypertension Kidney stones Lip swelling Low testosterone in male Lower extremity weakness Morbid obesity MRSA (methicillin resistant Staphylococcus aureus) infection Non-healing ulcer of multiple sites, limited to breakdown of skin Normocytic anemia Obesity ADELAIDE (obstructive sleep apnea) Osteoarthritis Pressure ulcer Pseudomonas aeruginosa infection Secondary pulmonary arterial hypertension Shortness of breath Shortness of breath on exertion Sleep apnea Stage 2 moderate COPD by GOLD classification Thoracic aortic aneurysm without rupture Tobacco use Type 2 diabetes mellitus Ulcer of right lower extremity Wears glasses Home Medications brimonidine 0.2 % eye drops 1 drp OPHTHALMIC BID ml 05/04/18 [History Last Taken Unknown] dorzolamide 2 %-timolol 0.5 % (PF) eye drops 1 drp OPHTHALMIC BID 05/04/18 [History Last Taken Unknown] omeprazole 20 mg capsule,delayed release 20 mg PO DAILY 05/04/18 [History Last Taken Unknown] tamsulosin 0.4 mg capsule 0.4 mg PO DAILY@0800 05/30/18 [History Last Taken Unknown] latanoprost 0.005 % eye drops 1 drp OPHTHALMIC QPM 09/06/18 [History Last Taken Unknown] oxygen MISCELLANEOUS 12/06/18 [History Last Taken Unknown] cholecalciferol (vitamin D3) 1,250 mcg (50,000 unit) tablet 50,000 unit PO QWEEK #10 tab 02/04/19 [Rx Last Taken Unknown] labetalol 200 mg tablet 200 mg PO 0600,1200,2200 tab 08/28/19 [History Last T aken Unknown] Lift Chair #1 ea 07/03/20 [Rx Last Taken Unknown] furosemide 40 mg tablet 40 mg PO BID #180 tab 08/07/20 [Rx Last Taken Unknown] B.ani-L.aci-L.yoana-L.plan-L.zayda [Probiotic Formula] 1 cap PO BID 12/20/20 [History Last Taken Unknown] acetaminophen 650 mg PO Q8H PRN PRN 12/20/20 [History Last Taken Unknown] albuterol sulfate 2.5 mg INHALATION Q6H PRN PRN 12/20/20 [History Last Taken Unknown] budesonide 0.5 mg INHALATION BID 12/20/20 [History Last Taken Unknown] diphenhydramine HCl 25 mg PO Q4H PRN 12/20/20 [History Last Taken Unknown] docusate sodium 100 mg PO BID 12/20/20 [History Last Taken Unknown] ferrous sulfate 325 mg PO TIDCM 12/20/20 [History Last Taken Unknown] fluticasone propion-salmeterol [Wixela Inhub] 1 inh INHALATION BID 12/20/20 [History Last Taken Unknown] guaifenesin 600 mg PO BID 12/20/20 [History Last Taken Unknown] linagliptin [Tradjenta] 5 mg PO DAILY@0800 12/20/20 [History Last Taken Unknown] loratadine 10 mg PO DAILY@0800 12/20/20 [History Last Taken Unknown] montelukast 10 mg PO QHS 12/20/20 [History Last Taken Unknown] multivitamin,rt-gcmr-Oz-FA-min [Multivitamin And Mineral] 1 tab PO DAILY@0800 12/20/20 [History Last Taken Unknown] oxycodone 15 mg PO Q3H PRN 12/20/20 [History Last Taken Unknown] pantoprazole [Protonix] 40 mg PO BID 12/20/20 [History Last Taken Unknown] pramoxine-mineral oil-zinc [Anusol] 1 ea TOPICAL TID PRN PRN 12/20/20 [History Last Taken Unknown] pregabalin 50 mg PO 0600,2100 12/20/20 [History Last Taken Unknown] sertraline 25 mg PO DAILY@0800 12/20/20 [History Last Taken Unknown] tiotropium bromide [Spiriva Respimat] 2 puff INHALATION DAILY 12/20/20 [History Last Taken Unknown] Allergy/AdvReac Type Severity Reaction Status Date / Time lisinopril Allergy Severe Angioedema Verified 10/24/20 15:56 Sulfa (Sulfonamide AdvReac Other Verified 10/24/20 15:56 Antibiotics) chapstick Allergy swelling Uncoded 10/24/20 15:56 Family History Father Cancer Mother Asthma Surgical History History of carpal tunnel surgery of right wrist History of cataract extraction Social History household members: spouse Smoking Status: Former smoker second hand exposure: No alcohol intake: current alcohol intake frequency: a few times a week substance use type: does not use caffeine: No what type of physical activity do you participate in: none Physical Exam Narrative Left knee no appreciable joint effusion upon examination there is no collateral instability he is lacking 10 degrees of extension he can flex to about 85 degree s without significant pain in the mid arc. He has medial joint line tenderness. There is no erythema. He has severely dry skin but no open wounds in the left lower extremity Lab / Micro Data Result Diagrams: 01/04/21 05:55 01/06/21 05:22 Labs: Laboratory Results - last 24 hr 01/05/21 16:13: POC Glucose 143 H 01/05/21 21:17: POC Glucose 147 H 01/06/21 05:22: Sodium 140, Potassium 3.8, Chloride 99, Carbon Dioxide 39.0 H, Anion Gap 2 L, BUN 33 H, Creatinine 1.27, Estim Creat Clear Calc 57.22, Est GFR (MDRD) Af Amer 73, Est GFR (MDRD) Non-Af 60, BUN/Creatinine Ratio 26.0 H, Glucose 105, Calcium 9.3 01/06/21 06:12: POC Glucose 95 01/06/21 11:13: POC Glucose 136 H Radiology Impression Knee X-Ray 01/05/21 17:30 IMPRESSION: Tricompartmental osteoarthritis most severely involving the medial femoral compartment. Joint effusion. Peripheral atherosclerosis. Electronically Signed: Bhupinder Warren DO at 23:54 EDT Tel , Service support ,
[2021-01-06] MEDS: Lidocaine 2% (20 ml mdv) 20 ML Vial INFILT (16:03)
[2021-01-06 16:51] LABS: Bedside Glucose 131 mg/dL (70-110)
[2021-01-06 17:21] VITALS: BP 112/64; PULSE 83
[2021-01-06] MEDS: Nystatin Powder 15gm Bottle 1 APPLIC TOPICAL (17:24)
[2021-01-06 19:59] VITALS: PULSE 67; RESP 18
[2021-01-06] MEDS: Montelukast 10 MG Tablet PO (20:06)
[2021-01-06] MEDS: Pregabalin 25 MG Capsule PO (20:06)
[2021-01-06] MEDS: Latanoprost 0.005% 1 Bottle 1 DRP OPHTHALMIC (20:07)
[2021-01-06 21:36] LABS: Bedside Glucose 144 mg/dL (70-110)
[2021-01-07] VITALS (8 sets, daily range): BP systolic 96–114; BP diastolic 64–69; PULSE 82–103; RESP 16–18; TEMP 36.2; O2SAT 95–98
[2021-01-07] MEDS: oxyCODONE 5 MG Tablet 10 MG PO ×2 (00:03→11:10)
[2021-01-07] MEDS: BRIMONIDINE 0.2% 5ML BOTTLE 1 DRP EACH EYE ×2 (06:39→17:32)
[2021-01-07] MEDS: Furosemide 40 MG Tablet PO (06:40)
[2021-01-07] MEDS: Pantoprazole Sodium 40 MG Tablet PO ×2 (06:40→17:23)
[2021-01-07] MEDS: Metoprolol Tartrate 50 MG Tablet PO ×2 (06:40→17:28)
[2021-01-07] MEDS: guaiFENesin 600 MG Tablet PO ×2 (06:40→17:24)
[2021-01-07] MEDS: levoFLOXacin 500 MG Tablet PO (06:41)
[2021-01-07] MEDS: Pregabalin 25 MG Capsule PO ×2 (06:44→20:57)
[2021-01-07] MEDS: Timolol 0.5% 5ML OPTH.BTL 1 DRP EACH EYE ×2 (06:45→17:27)
[2021-01-07] MEDS: Nystatin Powder 15gm Bottle 1 APPLIC TOPICAL (06:49)
[2021-01-07] MEDS: Tamsulosin HCl 0.4 MG Capsule PO (09:20)
[2021-01-07] MEDS: Loratadine 10 MG Tablet PO (09:20)
[2021-01-07] MEDS: oxyCODONE HCl Cr 10 MG Tablet 20 MG PO ×2 (09:21→20:57)
[2021-01-07] MEDS: LINAGLIPTIN 5 MG TABLET PO (09:22)
[2021-01-07] MEDS: Potassium Chloride Oral Tablet 20 MEQ PO (09:22)
[2021-01-07] MEDS: Multivitamins,Ther W-Minerals Tablet 1 TABLET PO (09:22)
[2021-01-07] MEDS: Sertraline 50 MG Tablet 25 MG PO (09:23)
[2021-01-07 10:51] LABS: Bedside Glucose 140 mg/dL (70-110)
--- NOTE | 2021-01-07 11:12 | NURSING ---
ALL CARE GIVEN IN ROOM DUE TO PT IN PRECAUTIONS FOR ESBL IN WOUND.
[2021-01-07] MEDS: Hydrocortisone 25 MG Suppository RC (16:06)
[2021-01-07 16:30] LABS: Bedside Glucose 133 mg/dL (70-110)
[2021-01-07] MEDS: Acetaminophen 500 MG Tablet 1000 MG PO (17:31)
[2021-01-07] MEDS: Budesonide Respules 0.5 MG/2 ML AMPUL.NEB. INHALATION (19:09)
[2021-01-07] MEDS: Latanoprost 0.005% 1 Bottle 1 DRP OPHTHALMIC (20:58)
[2021-01-07] MEDS: Montelukast 10 MG Tablet PO (21:01)
[2021-01-07] MEDS: HYDROmorphone 2 MG TABLET 1 MG PO (22:00)
[2021-01-07 22:20] LABS: Bedside Glucose 157 mg/dL (70-110)
[2021-01-08] VITALS (8 sets, daily range): BP systolic 124–135; BP diastolic 65–83; PULSE 70–88; RESP 18–21; TEMP 36.3; O2SAT 94–95
[2021-01-08 06:26] LABS: Bedside Glucose 86 mg/dL (70-110)
[2021-01-08] MEDS: HYDROmorphone 2 MG TABLET 1 MG PO ×3 (06:44→23:57)
[2021-01-08] MEDS: Pantoprazole Sodium 40 MG Tablet PO ×2 (06:45→18:03)
[2021-01-08] MEDS: Metoprolol Tartrate 50 MG Tablet PO ×2 (06:45→18:03)
[2021-01-08] MEDS: levoFLOXacin 500 MG Tablet PO (06:45)
[2021-01-08] MEDS: guaiFENesin 600 MG Tablet PO ×2 (06:45→18:03)
[2021-01-08] MEDS: Furosemide 40 MG Tablet PO (06:45)
[2021-01-08] MEDS: BRIMONIDINE 0.2% 5ML BOTTLE 1 DRP EACH EYE ×2 (06:46→18:07)
[2021-01-08] MEDS: Nystatin Powder 15gm Bottle 1 APPLIC TOPICAL (06:47)
[2021-01-08] MEDS: Timolol 0.5% 5ML OPTH.BTL 1 DRP EACH EYE ×2 (06:52→18:09)
[2021-01-08] MEDS: Loratadine 10 MG Tablet PO (09:05)
[2021-01-08] MEDS: LINAGLIPTIN 5 MG TABLET PO (09:05)
[2021-01-08] MEDS: Potassium Chloride Oral Tablet 20 MEQ PO (09:05)
[2021-01-08] MEDS: Multivitamins,Ther W-Minerals Tablet 1 TABLET PO (09:05)
[2021-01-08] MEDS: Tamsulosin HCl 0.4 MG Capsule PO (09:05)
[2021-01-08] MEDS: Sertraline 50 MG Tablet 25 MG PO (09:05)
[2021-01-08] MEDS: Ergocalciferol 1.25 MG (50, 000 UNIT) Capsule PO (09:06)
[2021-01-08] MEDS: oxyCODONE HCl Cr 10 MG Tablet 20 MG PO ×2 (09:08→20:52)
[2021-01-08 10:50] LABS: Bedside Glucose 151 mg/dL (70-110)
[2021-01-08] MEDS: oxyCODONE 5 MG Tablet 10 MG PO (10:52)
[2021-01-08] MEDS: Albuterol 2.5 MG/3 ML VIAL.NEB. INHALATION (11:30)
--- NOTE | 2021-01-08 15:24 | NURSING ---
Left message for Dr. [facility] per Dr. Turcios request. Waiting for return call
[2021-01-08 15:46] LABS: Bedside Glucose 168 mg/dL (70-110)
--- NOTE | 2021-01-08 16:38 | CASEMGMT ---
Social Work Met with patient and OT in room to discuss progress and broach alternative DC plan. Pt initially struggling with the idea of going to a SNF, but explained pt is [place] and cannot physically assist him safely at this time to go home. OT offered therapy family training. SW explained Medicare benefit is done as of 01/30 and recommending SNF stay until able to DC home safely. Pt asking for Dr. Turcios to order ortho, draining more from his knee and continued to express if I can just have ortho fix my shoulder and knee, I can walk and get home. Let note for Dr. Turcios to talk with pt further. Discussed SNF and private pay vs [facility]. Pt stated he thinks he will qualify for [facility]. Provided [facility] marah and SNF list with quality and resource data. Pt to discuss with and notify SW of choices. SW in room with pt and Dr. Turcios speaking. Dr. Turcios agreed for additional draining of knee. Discussed pt's medical care, expectations, goals, and agreed to SNF placement prior to home. Pt agreed and appreciative of information. Will continue to follow. Lidia Patel, ASSOCIATE PROFESSOR OF LITERACY METAL BENCH PATTERNMAKER
[2021-01-08] MEDS: Acetaminophen 500 MG Tablet 1000 MG PO (18:08)
[2021-01-08] MEDS: Budesonide Respules 0.5 MG/2 ML AMPUL.NEB. INHALATION (18:55)
[2021-01-08] MEDS: Latanoprost 0.005% 1 Bottle 1 DRP OPHTHALMIC (20:52)
[2021-01-08] MEDS: Montelukast 10 MG Tablet PO (20:53)
[2021-01-08 21:16] LABS: Bedside Glucose 175 mg/dL (70-110)
[2021-01-08] MEDS: Pregabalin 25 MG Capsule PO (21:32)
[2021-01-09 06:40] LABS: Bedside Glucose 85 mg/dL (70-110)
[2021-01-09 07:00] VITALS: BP 139/88; PULSE 74
[2021-01-09] MEDS: Metoprolol Tartrate 50 MG Tablet PO ×2 (07:00→17:29)
[2021-01-09] MEDS: levoFLOXacin 500 MG Tablet PO (07:00)
[2021-01-09] MEDS: Timolol 0.5% 5ML OPTH.BTL 1 DRP EACH EYE ×2 (07:01→17:37)
[2021-01-09] MEDS: Furosemide 40 MG Tablet PO (07:01)
[2021-01-09] MEDS: BRIMONIDINE 0.2% 5ML BOTTLE 1 DRP EACH EYE ×2 (07:01→17:32)
[2021-01-09] MEDS: Pantoprazole Sodium 40 MG Tablet PO ×2 (07:01→17:29)
[2021-01-09] MEDS: guaiFENesin 600 MG Tablet PO ×2 (07:01→17:29)
[2021-01-09] MEDS: HYDROmorphone 2 MG TABLET 1 MG PO ×2 (07:08→20:24)
[2021-01-09] MEDS: Budesonide Respules 0.5 MG/2 ML AMPUL.NEB. INHALATION (07:40)
[2021-01-09] MEDS: Tamsulosin HCl 0.4 MG Capsule PO (08:49)
[2021-01-09] MEDS: Potassium Chloride Oral Tablet 20 MEQ PO (08:49)
[2021-01-09] MEDS: Multivitamins,Ther W-Minerals Tablet 1 TABLET PO (08:50)
[2021-01-09] MEDS: Loratadine 10 MG Tablet PO (08:50)
[2021-01-09] MEDS: Sertraline 50 MG Tablet 25 MG PO (08:50)
[2021-01-09] MEDS: LINAGLIPTIN 5 MG TABLET PO (08:50)
[2021-01-09] MEDS: oxyCODONE HCl Cr 10 MG Tablet 20 MG PO ×2 (08:51→21:23)
[2021-01-09 11:06] LABS: Bedside Glucose 108 mg/dL (70-110)
[2021-01-09] MEDS: oxyCODONE 5 MG Tablet 10 MG PO ×2 (11:09→17:36)
[2021-01-09 13:43] VITALS: BP 101/62; PULSE 83; RESP 18; TEMP 36.3; O2SAT 92
[2021-01-09 16:05] LABS: Bedside Glucose 133 mg/dL (70-110)
[2021-01-09 17:29] VITALS: BP 107/61; PULSE 83
[2021-01-09] MEDS: Acetaminophen 500 MG Tablet 1000 MG PO (17:36)
[2021-01-09 21:21] LABS: Bedside Glucose 145 mg/dL (70-110)
[2021-01-09] MEDS: Pregabalin 25 MG Capsule PO (21:23)
[2021-01-09] MEDS: Montelukast 10 MG Tablet PO (21:23)
[2021-01-09] MEDS: Latanoprost 0.005% 1 Bottle 1 DRP OPHTHALMIC (21:24)
[2021-01-09 22:00] VITALS: PULSE 79; RESP 16; O2SAT 98
--- NOTE | 2021-01-09 22:07 | CPS ---
aerosol treatment missed due to therapist busy in er.
--- NOTE | 2021-01-09 23:46 | CPS ---
cpap on per patient home cpap unit. 3 lpm oxygen bled in.
[2021-01-10 06:36] LABS: Bedside Glucose 98 mg/dL (70-110)
[2021-01-10] MEDS: HYDROmorphone 2 MG TABLET 1 MG PO (06:40)
[2021-01-10 06:41] VITALS: PULSE 83
[2021-01-10] MEDS: Metoprolol Tartrate 50 MG Tablet PO ×2 (06:41→17:47)
[2021-01-10] MEDS: Pantoprazole Sodium 40 MG Tablet PO ×2 (06:41→17:46)
[2021-01-10] MEDS: Furosemide 40 MG Tablet PO (06:41)
[2021-01-10] MEDS: guaiFENesin 600 MG Tablet PO ×2 (06:41→17:46)
[2021-01-10] MEDS: Timolol 0.5% 5ML OPTH.BTL 1 DRP EACH EYE ×2 (06:42→17:44)
[2021-01-10] MEDS: BRIMONIDINE 0.2% 5ML BOTTLE 1 DRP EACH EYE ×2 (06:45→17:44)
[2021-01-10] MEDS: Budesonide Respules 0.5 MG/2 ML AMPUL.NEB. INHALATION ×2 (07:45→19:45)
[2021-01-10] MEDS: LINAGLIPTIN 5 MG TABLET PO (08:44)
[2021-01-10] MEDS: oxyCODONE HCl Cr 10 MG Tablet 20 MG PO ×2 (08:44→20:38)
[2021-01-10] MEDS: Multivitamins,Ther W-Minerals Tablet 1 TABLET PO (08:44)
[2021-01-10] MEDS: Tamsulosin HCl 0.4 MG Capsule PO (08:44)
[2021-01-10] MEDS: Potassium Chloride Oral Tablet 20 MEQ PO (08:44)
[2021-01-10] MEDS: Loratadine 10 MG Tablet PO (08:45)
[2021-01-10] MEDS: Sertraline 50 MG Tablet 25 MG PO (08:45)
[2021-01-10] MEDS: oxyCODONE 5 MG Tablet 10 MG PO ×2 (10:08→11:05)
[2021-01-10] MEDS: Hydrocortisone 25 MG Suppository RC (10:57)
[2021-01-10 11:01] LABS: Bedside Glucose 134 mg/dL (70-110)
[2021-01-10 13:38] VITALS: BP 108/57; PULSE 75; RESP 18; TEMP 36.4; O2SAT 98
[2021-01-10 16:35] LABS: Bedside Glucose 143 mg/dL (70-110)
[2021-01-10 17:47] VITALS: PULSE 75
[2021-01-10] MEDS: Nystatin Powder 15gm Bottle 1 APPLIC TOPICAL (17:48)
[2021-01-10 19:45] VITALS: PULSE 77; RESP 18; O2SAT 98
[2021-01-10] MEDS: Montelukast 10 MG Tablet PO (20:36)
[2021-01-10] MEDS: Pregabalin 25 MG Capsule PO (20:36)
[2021-01-10] MEDS: Latanoprost 0.005% 1 Bottle 1 DRP OPHTHALMIC (20:40)
[2021-01-10 22:06] LABS: Bedside Glucose 157 mg/dL (70-110)
[2021-01-11] MEDS: oxyCODONE 5 MG Tablet 10 MG PO ×2 (00:14→10:41)
[2021-01-11 05:43] VITALS: BP 137/81; PULSE 70
[2021-01-11] MEDS: Metoprolol Tartrate 50 MG Tablet PO ×2 (05:43→17:54)
[2021-01-11] MEDS: guaiFENesin 600 MG Tablet PO ×2 (05:43→17:54)
[2021-01-11] MEDS: Furosemide 40 MG Tablet PO (05:43)
[2021-01-11] MEDS: Pantoprazole Sodium 40 MG Tablet PO ×2 (05:43→17:54)
[2021-01-11] MEDS: Timolol 0.5% 5ML OPTH.BTL 1 DRP EACH EYE ×2 (05:47→18:14)
[2021-01-11] MEDS: BRIMONIDINE 0.2% 5ML BOTTLE 1 DRP EACH EYE ×2 (05:47→18:13)
[2021-01-11 06:07] LABS: Absolute Lymphocyte Count 1.75 X10^3/uL (0.83-4.51); Absolute Neutrophil Count 5.2 X10^3/uL (2.0-7.7); Basophil# 0.03 X10^3/uL; Basophil% 0.3 % (0-1); Eosinophil# 0.93 X10^3/uL; Eosinophils% 10.5 % (0-5); Hemoglobin 8.9 g/dL (13.0-16.5); Lymphocyte # 1.75 X10^3/ul (0.83-4.51); Lymphocyte % 19.8 % (19-41); Mean Corp Hgb Conc 30.7 g/dL (32-36); Mean Corpuscular Hgb 27.5 pg (27.0-32.0); Mean Corpuscular Volume 89.5 fL (80-94); Mean Platelet Vol. 9.8 fl (6.2-12.0); Monocyte# 0.87 X10^3/uL; Monocyte% 9.9 % (0-10); NRBC Flagged by Analyzer 0 % (0-5); Neutrophil # 5.22 X10^3/uL (2.7-7.7); Neutrophil % 59.3 % (47-70); Platelet Count 317 K/mm3 (150-450); RBC Distribution Width CV 15.9 % (11.6-14.6); RBC Distribution Width SD 52.9 fl (35.1-43.9); Red Blood Count 3.24 M/mm3 (4.6-6.2); White Blood Count 8.8 K/mm3 (4.4-11.0)
[2021-01-11 06:33] LABS: Anion Gap 2 (5-15); BUN 37 mg/dL (7-18); BUN/Creat Ratio 30.3 RATIO (10-20); Calcium,Total 9.3 mg/dL (8.5-10.1); Chloride 99 mmol/L (98-107); Creatinine, Serum 1.22 mg/dL (0.70-1.30); EST Glomerular Filtration Rate 63 mL/min (>60); Est Glom Filt Rate - Afr Amer 76 mL/min (>60); Estimated Creatinine Clearance 59.56 ml/min; Glucose 99 mg/dL (74-106); Potassium 4.1 mmol/L (3.5-5.1); Sodium Level 139 mmol/L (136-145)
[2021-01-11 06:41] LABS: Bedside Glucose 98 mg/dL (70-110)
[2021-01-11 07:17] VITALS: PULSE 88; RESP 16; O2SAT 97
[2021-01-11] MEDS: Tamsulosin HCl 0.4 MG Capsule PO (08:25)
[2021-01-11] MEDS: Loratadine 10 MG Tablet PO (08:25)
[2021-01-11] MEDS: Multivitamins,Ther W-Minerals Tablet 1 TABLET PO (08:25)
[2021-01-11] MEDS: Sertraline 50 MG Tablet 25 MG PO (08:26)
[2021-01-11] MEDS: Potassium Chloride Oral Tablet 20 MEQ PO (08:26)
[2021-01-11] MEDS: LINAGLIPTIN 5 MG TABLET PO (08:26)
[2021-01-11] MEDS: oxyCODONE HCl Cr 10 MG Tablet 20 MG PO ×2 (08:29→20:58)
--- NOTE | 2021-01-11 10:36 | NURSING ---
Notified Dr. Mcconnell's office of consult for the left knee and left shoulder, also made the office aware that Dr. Dent completed an aspiration of the left knee on 01/06/21.
[2021-01-11 11:15] LABS: Bedside Glucose 143 mg/dL (70-110)
--- NOTE | 2021-01-11 11:54 | WOUNDNOTE ---
wound photo: right leg
--- NOTE | 2021-01-11 11:54 | WOUNDNOTE ---
wound photo: right leg
--- NOTE | 2021-01-11 14:00 | NURSING ---
Left message for spouse, Justin, to call.
--- NOTE | 2021-01-11 15:07 | NURSING ---
Spouse, Justin, updated on current COVID status on the unit.
[2021-01-11 15:58] VITALS: BP 135/83; PULSE 84; RESP 17; TEMP 36.5; O2SAT 94
[2021-01-11 17:00] LABS: Bedside Glucose 176 mg/dL (70-110)
[2021-01-11 17:54] VITALS: BP 135/83; PULSE 84
[2021-01-11] MEDS: Acetaminophen 500 MG Tablet 1000 MG PO (18:09)
[2021-01-11] MEDS: HYDROmorphone 2 MG TABLET 1 MG PO (18:10)
[2021-01-11 19:50] VITALS: PULSE 89; RESP 16; O2SAT 97
[2021-01-11] MEDS: Latanoprost 0.005% 1 Bottle 1 DRP OPHTHALMIC (20:58)
[2021-01-11] MEDS: Montelukast 10 MG Tablet PO (21:00)
[2021-01-11 21:46] LABS: Bedside Glucose 155 mg/dL (70-110)
[2021-01-12] MEDS: Furosemide 40 MG Tablet PO (05:50)
[2021-01-12] MEDS: Pantoprazole Sodium 40 MG Tablet PO ×2 (05:50→17:31)
[2021-01-12] MEDS: guaiFENesin 600 MG Tablet PO ×2 (05:50→17:32)
[2021-01-12] MEDS: Nystatin Powder 15gm Bottle 1 APPLIC TOPICAL (05:51)
[2021-01-12] MEDS: Timolol 0.5% 5ML OPTH.BTL 1 DRP EACH EYE ×2 (05:51→17:36)
[2021-01-12] MEDS: BRIMONIDINE 0.2% 5ML BOTTLE 1 DRP EACH EYE ×2 (05:51→17:35)
[2021-01-12 05:55] VITALS: BP 140/98; PULSE 71
[2021-01-12] MEDS: Metoprolol Tartrate 50 MG Tablet PO ×2 (05:55→17:31)
[2021-01-12 06:05] LABS: Bedside Glucose 96 mg/dL (70-110)
[2021-01-12 07:00] VITALS: PULSE 72; RESP 18; O2SAT 99
[2021-01-12] MEDS: Potassium Chloride Oral Tablet 20 MEQ PO (08:15)
[2021-01-12] MEDS: Tamsulosin HCl 0.4 MG Capsule PO (08:15)
[2021-01-12] MEDS: Multivitamins,Ther W-Minerals Tablet 1 TABLET PO (08:18)
[2021-01-12] MEDS: Loratadine 10 MG Tablet PO (08:18)
[2021-01-12] MEDS: LINAGLIPTIN 5 MG TABLET PO (08:18)
[2021-01-12] MEDS: Sertraline 50 MG Tablet 25 MG PO (08:18)
[2021-01-12] MEDS: oxyCODONE HCl Cr 10 MG Tablet 20 MG PO ×2 (08:21→19:46)
[2021-01-12] MEDS: oxyCODONE 5 MG Tablet 10 MG PO ×2 (10:45→23:13)
[2021-01-12 10:50] VITALS: PULSE 75; RESP 18; O2SAT 95
[2021-01-12 10:50] LABS: Bedside Glucose 124 mg/dL (70-110)
--- NOTE | 2021-01-12 15:06 | CASEMGMT ---
Social Work Followed up with pt on having conversation with on [facility] and SNF choices. Pt stated that has not happened yet. Encouraged to to notify this worker by end of the week with outcome. Pt expressed understanding. Will continue to follow. MILTON PurdyW
[2021-01-12 15:24] VITALS: BP 120/66; PULSE 88; RESP 20; TEMP 35.6; O2SAT 94
[2021-01-12] MEDS: HYDROmorphone 2 MG TABLET 1 MG PO (15:54)
[2021-01-12] MEDS: Acetaminophen 500 MG Tablet 1000 MG PO ×2 (15:56→23:13)
[2021-01-12 16:20] LABS: Bedside Glucose 150 mg/dL (70-110)
[2021-01-12 17:31] VITALS: BP 120/66; PULSE 88
[2021-01-12] MEDS: Latanoprost 0.005% 1 Bottle 1 DRP OPHTHALMIC (19:47)
[2021-01-12] MEDS: Montelukast 10 MG Tablet PO (19:47)
[2021-01-12 20:25] VITALS: PULSE 68; RESP 15
[2021-01-12] MEDS: Budesonide Respules 0.5 MG/2 ML AMPUL.NEB. INHALATION (20:25)
[2021-01-12 21:31] LABS: Bedside Glucose 142 mg/dL (70-110)
[2021-01-13] VITALS (7 sets, daily range): BP systolic 107–125; BP diastolic 51–72; PULSE 64–95; RESP 16–18; TEMP 36.1; O2SAT 95–99
[2021-01-13 06:16] LABS: Bedside Glucose 99 mg/dL (70-110)
[2021-01-13] MEDS: guaiFENesin 600 MG Tablet PO ×2 (06:33→17:14)
[2021-01-13] MEDS: Pantoprazole Sodium 40 MG Tablet PO ×2 (06:33→17:15)
[2021-01-13] MEDS: HYDROmorphone 2 MG TABLET 1 MG PO ×2 (06:34→16:16)
[2021-01-13] MEDS: BRIMONIDINE 0.2% 5ML BOTTLE 1 DRP EACH EYE ×2 (06:35→17:08)
[2021-01-13] MEDS: Metoprolol Tartrate 50 MG Tablet PO ×2 (06:35→17:14)
[2021-01-13] MEDS: Furosemide 40 MG Tablet PO (06:35)
[2021-01-13] MEDS: Timolol 0.5% 5ML OPTH.BTL 1 DRP EACH EYE ×2 (06:37→17:08)
[2021-01-13] MEDS: Budesonide Respules 0.5 MG/2 ML AMPUL.NEB. INHALATION ×2 (07:21→19:11)
[2021-01-13] MEDS: Tamsulosin HCl 0.4 MG Capsule PO (08:02)
[2021-01-13] MEDS: LINAGLIPTIN 5 MG TABLET PO (08:02)
[2021-01-13] MEDS: Multivitamins,Ther W-Minerals Tablet 1 TABLET PO (08:02)
[2021-01-13] MEDS: Potassium Chloride Oral Tablet 20 MEQ PO (08:02)
[2021-01-13] MEDS: Loratadine 10 MG Tablet PO (08:03)
[2021-01-13] MEDS: Sertraline 50 MG Tablet 25 MG PO (08:03)
[2021-01-13] MEDS: oxyCODONE HCl Cr 10 MG Tablet 20 MG PO ×2 (08:05→21:21)
[2021-01-13] MEDS: oxyCODONE 5 MG Tablet 10 MG PO (10:27)
[2021-01-13 11:00] LABS: Bedside Glucose 134 mg/dL (70-110)
[2021-01-13] MEDS: Acetaminophen 500 MG Tablet 1000 MG PO (16:16)
[2021-01-13 16:35] LABS: Bedside Glucose 118 mg/dL (70-110)
[2021-01-13] MEDS: Montelukast 10 MG Tablet PO (21:21)
[2021-01-13] MEDS: Latanoprost 0.005% 1 Bottle 1 DRP OPHTHALMIC (21:22)
[2021-01-13 21:30] LABS: Bedside Glucose 129 mg/dL (70-110)
[2021-01-14] VITALS (7 sets, daily range): BP systolic 114–128; BP diastolic 69–85; PULSE 79–89; RESP 16–20; TEMP 36.6; O2SAT 95–99
[2021-01-14] MEDS: HYDROmorphone 2 MG TABLET 1 MG PO ×2 (06:05→14:55)
[2021-01-14] MEDS: BRIMONIDINE 0.2% 5ML BOTTLE 1 DRP EACH EYE ×2 (06:05→18:21)
[2021-01-14] MEDS: Acetaminophen 500 MG Tablet 1000 MG PO ×2 (06:06→14:56)
[2021-01-14] MEDS: guaiFENesin 600 MG Tablet PO ×2 (06:07→18:18)
[2021-01-14] MEDS: Pantoprazole Sodium 40 MG Tablet PO ×2 (06:07→18:19)
[2021-01-14] MEDS: Furosemide 40 MG Tablet PO (06:07)
[2021-01-14] MEDS: Metoprolol Tartrate 50 MG Tablet PO ×2 (06:07→18:18)
[2021-01-14] MEDS: Timolol 0.5% 5ML OPTH.BTL 1 DRP EACH EYE ×2 (06:09→18:21)
[2021-01-14 06:26] LABS: Bedside Glucose 89 mg/dL (70-110)
[2021-01-14] MEDS: Albuterol 2.5 MG/3 ML VIAL.NEB. INHALATION ×2 (06:48→19:08)
[2021-01-14] MEDS: Budesonide Respules 0.5 MG/2 ML AMPUL.NEB. INHALATION ×2 (06:48→19:08)
[2021-01-14] MEDS: Potassium Chloride Oral Tablet 20 MEQ PO (08:10)
[2021-01-14] MEDS: Multivitamins,Ther W-Minerals Tablet 1 TABLET PO (08:10)
[2021-01-14] MEDS: Tamsulosin HCl 0.4 MG Capsule PO (08:10)
[2021-01-14] MEDS: Loratadine 10 MG Tablet PO (08:10)
[2021-01-14] MEDS: Sertraline 50 MG Tablet 25 MG PO (08:10)
[2021-01-14] MEDS: LINAGLIPTIN 5 MG TABLET PO (08:10)
[2021-01-14] MEDS: oxyCODONE HCl Cr 10 MG Tablet 20 MG PO ×2 (08:25→20:29)
[2021-01-14 11:05] LABS: Bedside Glucose 123 mg/dL (70-110)
[2021-01-14] MEDS: oxyCODONE 5 MG Tablet 10 MG PO (11:23)
[2021-01-14] MEDS: Hydrocortisone 25 MG Suppository RC (14:31)
[2021-01-14 16:16] LABS: Bedside Glucose 141 mg/dL (70-110)
--- NOTE | 2021-01-14 16:50 | NURSING ---
PT ASKING TO SEE A PERFUME MAKER. NOTE LEFT AND RN AWARE.
[2021-01-14 21:25] LABS: Bedside Glucose 146 mg/dL (70-110)
[2021-01-14] MEDS: Pregabalin 25 MG Capsule PO (21:44)
[2021-01-14] MEDS: Montelukast 10 MG Tablet PO (21:45)
[2021-01-14] MEDS: Latanoprost 0.005% 1 Bottle 1 DRP OPHTHALMIC (21:46)
[2021-01-15 06:20] LABS: Bedside Glucose 84 mg/dL (70-110)
[2021-01-15 06:22] VITALS: BP 116/74; PULSE 74
[2021-01-15] MEDS: Metoprolol Tartrate 50 MG Tablet PO ×2 (06:22→18:55)
[2021-01-15] MEDS: Furosemide 40 MG Tablet PO (06:22)
[2021-01-15] MEDS: Pantoprazole Sodium 40 MG Tablet PO ×2 (06:22→16:24)
[2021-01-15] MEDS: guaiFENesin 600 MG Tablet PO ×2 (06:22→16:23)
[2021-01-15] MEDS: BRIMONIDINE 0.2% 5ML BOTTLE 1 DRP EACH EYE ×2 (06:23→16:24)
[2021-01-15] MEDS: Timolol 0.5% 5ML OPTH.BTL 1 DRP EACH EYE ×2 (06:23→16:19)
[2021-01-15] MEDS: Albuterol 2.5 MG/3 ML VIAL.NEB. INHALATION (07:06)
[2021-01-15 07:10] VITALS: PULSE 78; RESP 18; O2SAT 99
[2021-01-15] MEDS: Budesonide Respules 0.5 MG/2 ML AMPUL.NEB. INHALATION ×2 (07:10→20:05)
[2021-01-15] MEDS: oxyCODONE HCl Cr 10 MG Tablet 20 MG PO ×2 (08:14→20:54)
[2021-01-15] MEDS: Potassium Chloride Oral Tablet 20 MEQ PO (08:15)
[2021-01-15] MEDS: Sertraline 50 MG Tablet 25 MG PO (08:15)
[2021-01-15] MEDS: Loratadine 10 MG Tablet PO (08:15)
[2021-01-15] MEDS: Tamsulosin HCl 0.4 MG Capsule PO (08:15)
[2021-01-15] MEDS: LINAGLIPTIN 5 MG TABLET PO (08:15)
[2021-01-15] MEDS: Multivitamins,Ther W-Minerals Tablet 1 TABLET PO (08:15)
[2021-01-15] MEDS: oxyCODONE 5 MG Tablet 10 MG PO (10:09)
[2021-01-15] MEDS: Ergocalciferol 1.25 MG (50, 000 UNIT) Capsule PO (10:09)
[2021-01-15 10:56] LABS: Bedside Glucose 145 mg/dL (70-110)
[2021-01-15 15:22] VITALS: BP 126/68; PULSE 85; RESP 19; TEMP 36.9; O2SAT 94
[2021-01-15 16:06] LABS: Bedside Glucose 122 mg/dL (70-110)
[2021-01-15 18:55] VITALS: PULSE 85
[2021-01-15 20:05] VITALS: PULSE 79; RESP 18; O2SAT 95
[2021-01-15 22:11] LABS: Bedside Glucose 135 mg/dL (70-110)
[2021-01-15] MEDS: Pregabalin 25 MG Capsule PO (22:13)
[2021-01-15] MEDS: Latanoprost 0.005% 1 Bottle 1 DRP OPHTHALMIC (22:14)
[2021-01-15] MEDS: Montelukast 10 MG Tablet PO (22:14)
[2021-01-16] MEDS: guaiFENesin 600 MG Tablet PO ×2 (05:12→16:59)
[2021-01-16] MEDS: Pregabalin 25 MG Capsule PO ×2 (05:12→20:48)
[2021-01-16 05:13] VITALS: BP 125/74; PULSE 78
[2021-01-16] MEDS: Pantoprazole Sodium 40 MG Tablet PO ×2 (05:13→16:59)
[2021-01-16] MEDS: Metoprolol Tartrate 50 MG Tablet PO ×2 (05:13→16:59)
[2021-01-16] MEDS: Furosemide 40 MG Tablet PO (05:13)
[2021-01-16] MEDS: oxyCODONE 5 MG Tablet 10 MG PO ×3 (05:18→16:57)
[2021-01-16] MEDS: BRIMONIDINE 0.2% 5ML BOTTLE 1 DRP EACH EYE ×2 (05:18→17:04)
[2021-01-16] MEDS: Timolol 0.5% 5ML OPTH.BTL 1 DRP EACH EYE ×2 (05:18→17:04)
[2021-01-16 06:40] VITALS: PULSE 68; RESP 17; O2SAT 94
[2021-01-16] MEDS: Budesonide Respules 0.5 MG/2 ML AMPUL.NEB. INHALATION ×2 (06:40→19:36)
[2021-01-16 06:45] LABS: Bedside Glucose 94 mg/dL (70-110)
[2021-01-16] MEDS: oxyCODONE HCl Cr 10 MG Tablet 20 MG PO ×2 (08:58→20:48)
[2021-01-16] MEDS: Tamsulosin HCl 0.4 MG Capsule PO (08:59)
[2021-01-16] MEDS: Sertraline 50 MG Tablet 25 MG PO (08:59)
[2021-01-16] MEDS: Multivitamins,Ther W-Minerals Tablet 1 TABLET PO (08:59)
[2021-01-16] MEDS: Loratadine 10 MG Tablet PO (08:59)
[2021-01-16] MEDS: LINAGLIPTIN 5 MG TABLET PO (08:59)
[2021-01-16] MEDS: Potassium Chloride Oral Tablet 20 MEQ PO (08:59)
[2021-01-16 10:56] LABS: Bedside Glucose 134 mg/dL (70-110)
[2021-01-16] MEDS: Hydrocortisone 25 MG Suppository RC (12:57)
[2021-01-16 14:58] VITALS: BP 120/73; PULSE 87; RESP 18; TEMP 36.7; O2SAT 98
[2021-01-16 16:40] LABS: Bedside Glucose 134 mg/dL (70-110)
[2021-01-16 16:59] VITALS: PULSE 82
[2021-01-16 19:36] VITALS: PULSE 75; RESP 18
[2021-01-16] MEDS: Latanoprost 0.005% 1 Bottle 1 DRP OPHTHALMIC (20:46)
[2021-01-16] MEDS: Montelukast 10 MG Tablet PO (20:47)
[2021-01-16 21:26] LABS: Bedside Glucose 158 mg/dL (70-110)
[2021-01-17] MEDS: Acetaminophen 500 MG Tablet 1000 MG PO ×2 (00:05→12:48)
[2021-01-17] MEDS: HYDROmorphone 2 MG TABLET 1 MG PO ×2 (00:06→12:47)
[2021-01-17 06:16] VITALS: BP 103/62; PULSE 69; RESP 16; TEMP 35.9; O2SAT 95
[2021-01-17] MEDS: BRIMONIDINE 0.2% 5ML BOTTLE 1 DRP EACH EYE ×2 (06:18→17:37)
[2021-01-17] MEDS: Timolol 0.5% 5ML OPTH.BTL 1 DRP EACH EYE ×2 (06:18→17:37)
[2021-01-17] MEDS: Pregabalin 25 MG Capsule PO ×2 (06:19→20:59)
[2021-01-17] MEDS: guaiFENesin 600 MG Tablet PO ×2 (06:19→17:33)
[2021-01-17] MEDS: Pantoprazole Sodium 40 MG Tablet PO ×2 (06:20→17:33)
[2021-01-17 06:30] LABS: Bedside Glucose 99 mg/dL (70-110)
[2021-01-17 06:46] VITALS: PULSE 79; RESP 19; O2SAT 93
[2021-01-17] MEDS: Budesonide Respules 0.5 MG/2 ML AMPUL.NEB. INHALATION ×2 (06:46→18:44)
--- NOTE | 2021-01-17 07:36 | NURSING ---
Keagan and Cara held this am d/t low BP. Discussed with pt and he reports if/when his blood pressure would be of similar value at home, he would hold dose of medication and recheck blood pressure later.
[2021-01-17] MEDS: Tamsulosin HCl 0.4 MG Capsule PO (08:05)
[2021-01-17] MEDS: Potassium Chloride Oral Tablet 20 MEQ PO (08:06)
[2021-01-17] MEDS: Multivitamins,Ther W-Minerals Tablet 1 TABLET PO (08:06)
[2021-01-17] MEDS: Loratadine 10 MG Tablet PO (08:06)
[2021-01-17] MEDS: Sertraline 50 MG Tablet 25 MG PO (08:07)
[2021-01-17] MEDS: LINAGLIPTIN 5 MG TABLET PO (08:07)
[2021-01-17] MEDS: oxyCODONE HCl Cr 10 MG Tablet 20 MG PO ×2 (08:11→20:58)
[2021-01-17] MEDS: oxyCODONE 5 MG Tablet 10 MG PO (10:11)
[2021-01-17 10:46] LABS: Bedside Glucose 122 mg/dL (70-110)
--- NOTE | 2021-01-17 13:21 | NURSING ---
pt slid out of chair on to buttock at 1230, staff in room but unable to stop slide d/t pt was already too far at edge of chair and pt unable to assist staff in stopping fall. pt assess, no injuries noted. Dr. Turcios, nursing house supervisor and [employer] Supervisor notified. pt A&Ox3, refused for this nurse to notify spouse.
[2021-01-17 14:11] VITALS: BP 99/72; PULSE 80
[2021-01-17 15:03] VITALS: BP 144/71; PULSE 98; RESP 18; TEMP 36.3; O2SAT 99
[2021-01-17 16:45] LABS: Bedside Glucose 143 mg/dL (70-110)
[2021-01-17 17:32] VITALS: BP 144/71; PULSE 98
[2021-01-17] MEDS: Metoprolol Tartrate 50 MG Tablet PO (17:32)
[2021-01-17] MEDS: Nystatin Powder 15gm Bottle 1 APPLIC TOPICAL (17:41)
[2021-01-17 18:44] VITALS: PULSE 81; RESP 18
[2021-01-17] MEDS: Montelukast 10 MG Tablet PO (20:59)
[2021-01-17] MEDS: Latanoprost 0.005% 1 Bottle 1 DRP OPHTHALMIC (21:00)
[2021-01-17 21:51] LABS: Bedside Glucose 151 mg/dL (70-110)
[2021-01-18] MEDS: Acetaminophen 500 MG Tablet 1000 MG PO (00:20)
[2021-01-18] MEDS: HYDROmorphone 2 MG TABLET 1 MG PO (00:21)
[2021-01-18 05:51] LABS: Bedside Glucose 93 mg/dL (70-110)
[2021-01-18 05:59] LABS: Absolute Lymphocyte Count 1.66 X10^3/uL (0.83-4.51); Absolute Neutrophil Count 4.6 X10^3/uL (2.0-7.7); Basophil# 0.04 X10^3/uL; Basophil% 0.5 % (0-1); Eosinophil# 1.35 X10^3/uL; Eosinophils% 15.8 % (0-5); Hemoglobin 8.8 g/dL (13.0-16.5); Lymphocyte # 1.66 X10^3/ul (0.83-4.51); Lymphocyte % 19.5 % (19-41); Mean Corp Hgb Conc 29.3 g/dL (32-36); Mean Corpuscular Hgb 26.6 pg (27.0-32.0); Mean Corpuscular Volume 90.6 fL (80-94); Mean Platelet Vol. 9.6 fl (6.2-12.0); Monocyte# 0.82 X10^3/uL; Monocyte% 9.6 % (0-10); NRBC Flagged by Analyzer 0 % (0-5); Neutrophil # 4.63 X10^3/uL (2.7-7.7); Neutrophil % 54.2 % (47-70); Platelet Count 325 K/mm3 (150-450); RBC Distribution Width SD 53.9 fl (35.1-43.9); Red Blood Count 3.31 M/mm3 (4.6-6.2); White Blood Count 8.5 K/mm3 (4.4-11.0)
[2021-01-18 06:38] LABS: Anion Gap 2 (5-15); BUN 43 mg/dL (7-18); BUN/Creat Ratio 31.4 RATIO (10-20); Calcium,Total 9.3 mg/dL (8.5-10.1); Chloride 98 mmol/L (98-107); Creatinine, Serum 1.37 mg/dL (0.70-1.30); EST Glomerular Filtration Rate 55 mL/min (>60); Est Glom Filt Rate - Afr Amer 67 mL/min (>60); Estimated Creatinine Clearance 53.04 ml/min; Glucose 89 mg/dL (74-106); Potassium 4.3 mmol/L (3.5-5.1); Sodium Level 138 mmol/L (136-145)
[2021-01-18 06:40] VITALS: PULSE 83; RESP 20; O2SAT 92
[2021-01-18] MEDS: Albuterol 2.5 MG/3 ML VIAL.NEB. INHALATION ×2 (06:40→18:37)
[2021-01-18] MEDS: Budesonide Respules 0.5 MG/2 ML AMPUL.NEB. INHALATION ×2 (06:40→18:37)
[2021-01-18] MEDS: BRIMONIDINE 0.2% 5ML BOTTLE 1 DRP EACH EYE ×2 (06:44→17:25)
[2021-01-18] MEDS: Timolol 0.5% 5ML OPTH.BTL 1 DRP EACH EYE ×2 (06:44→17:25)
[2021-01-18 06:48] VITALS: BP 128/80; PULSE 76
[2021-01-18] MEDS: Pantoprazole Sodium 40 MG Tablet PO ×2 (06:48→17:27)
[2021-01-18] MEDS: Furosemide 40 MG Tablet PO (06:48)
[2021-01-18] MEDS: Metoprolol Tartrate 50 MG Tablet PO ×2 (06:48→17:27)
[2021-01-18] MEDS: guaiFENesin 600 MG Tablet PO ×2 (06:48→17:27)
[2021-01-18] MEDS: oxyCODONE HCl Cr 10 MG Tablet 20 MG PO ×2 (08:57→20:33)
[2021-01-18] MEDS: Loratadine 10 MG Tablet PO (08:58)
[2021-01-18] MEDS: Potassium Chloride Oral Tablet 20 MEQ PO (08:58)
[2021-01-18] MEDS: Multivitamins,Ther W-Minerals Tablet 1 TABLET PO (08:58)
[2021-01-18] MEDS: Tamsulosin HCl 0.4 MG Capsule PO (08:58)
[2021-01-18] MEDS: LINAGLIPTIN 5 MG TABLET PO (08:59)
[2021-01-18] MEDS: Sertraline 50 MG Tablet 25 MG PO (09:01)
[2021-01-18] MEDS: oxyCODONE 5 MG Tablet 10 MG PO (10:44)
[2021-01-18 10:45] LABS: Bedside Glucose 115 mg/dL (70-110)
--- NOTE | 2021-01-18 15:19 | WOUNDNOTE ---
wound photo: Right leg
--- NOTE | 2021-01-18 15:19 | WOUNDNOTE ---
wound photo: right leg
[2021-01-18 16:00] VITALS: BP 121/68; PULSE 98; RESP 18; TEMP 36.9; O2SAT 97
[2021-01-18 17:20] LABS: Bedside Glucose 134 mg/dL (70-110)
[2021-01-18 17:27] VITALS: PULSE 98
[2021-01-18] MEDS: Nystatin Powder 15gm Bottle 1 APPLIC TOPICAL (17:27)
[2021-01-18 18:37] VITALS: PULSE 78; RESP 18; O2SAT 99
[2021-01-18] MEDS: Montelukast 10 MG Tablet PO (20:33)
[2021-01-18] MEDS: Latanoprost 0.005% 1 Bottle 1 DRP OPHTHALMIC (20:34)
[2021-01-19 01:15] LABS: Bedside Glucose 117 mg/dL (70-110)
[2021-01-19 06:20] VITALS: BP 134/86; PULSE 76
[2021-01-19] MEDS: BRIMONIDINE 0.2% 5ML BOTTLE 1 DRP EACH EYE ×2 (06:25→17:57)
[2021-01-19 06:26] VITALS: PULSE 76
[2021-01-19] MEDS: Pantoprazole Sodium 40 MG Tablet PO ×2 (06:26→17:51)
[2021-01-19] MEDS: guaiFENesin 600 MG Tablet PO ×2 (06:26→17:49)
[2021-01-19] MEDS: Metoprolol Tartrate 50 MG Tablet PO ×2 (06:26→17:49)
[2021-01-19] MEDS: Furosemide 40 MG Tablet PO (06:26)
[2021-01-19] MEDS: Timolol 0.5% 5ML OPTH.BTL 1 DRP EACH EYE ×2 (06:27→17:55)
[2021-01-19 06:36] LABS: Bedside Glucose 95 mg/dL (70-110)
[2021-01-19] MEDS: Sertraline 50 MG Tablet 25 MG PO (08:20)
[2021-01-19] MEDS: oxyCODONE HCl Cr 10 MG Tablet 20 MG PO ×2 (08:20→19:55)
[2021-01-19] MEDS: Tamsulosin HCl 0.4 MG Capsule PO (08:20)
[2021-01-19] MEDS: Loratadine 10 MG Tablet PO (08:20)
[2021-01-19] MEDS: LINAGLIPTIN 5 MG TABLET PO (08:20)
[2021-01-19] MEDS: Multivitamins,Ther W-Minerals Tablet 1 TABLET PO (08:20)
--- NOTE | 2021-01-19 09:27 | PN.TCU_ITS ---
Subjective Subjective Resident seen, examined for regulatory visit. His only complaint is potassium pills are too large, change to potassium liquid. Objective Data Objective Data Vital Signs: Vital Signs Temp Pulse Resp BP Pulse Ox 98.5 F 76 18 134/86 H 99 01/18/21 16:00 01/19/21 06:26 01/18/21 18:37 01/19/21 06:20 01/18/21 18:37 Oxygen Flow Rate (L/min) 3 Oxygen Delivery Method CPAP Weight: 117.055 kg Body Mass Index (BMI) 39.8 Intake & Output: Intake and Output for Last 24 Hours 01/17/21 01/18/21 01/19/21 23:59 23:59 23:59 Intake Total 1440 / 1440 680 / 680 Balance 1440 / 1440 680 / 680 Lab / Micro Data Result Diagrams: 01/18/21 05:05 01/18/21 05:05 Labs: Laboratory Results - last 24 hr 01/18/21 10:37: POC Glucose 115 H 01/18/21 17:03: POC Glucose 134 H 01/18/21 22:04: POC Glucose 117 H 01/19/21 06:18: POC Glucose 95 Micro: Microbiology 01/18/21 14:55 Nasal Secretion SARS-CoV-2 Antigen (Rapid) - Final 01/12/21 12:20 Nasal Secretion SARS-CoV-2 Antigen (Rapid) - Final 12/28/20 12:55 Wound - Leg, Left Gram Stain - Final 12/28/20 12:55 Wound - Leg, Left Wound Culture - Final Pseudomonas aeroginosa Klebsiella pneumoniae sp pneum Coag Negative Staph Physical Exam Const alert and oriented x3 General Appearance: cooperative HEENT normocephalic Eyes PERRL and EOMs intact bilaterally Neck supple, no JVD and no carotid bruits Resp normal respiratory effort, normal air movement and clear to auscultation bilaterally Cardio regular rate and regular rhythm GI normal to inspection, nondistended, normoactive bowel sounds, non-tender and non-distended GI Narrative: Indwelling sanchez catheter. Extremity normal capillary refill Extremity Narrative: Right lower extremity dressed. 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 * Debility - PT/OT. * Pain - Tylenol 1000mg Q6H prn pain (1-6), Oxycontin 20mg bid, oxycodone 10mg Q8H prn, 10mg at 10:30AM, Dilaudid 1mg q6h prn. * Bowel - Miralax 17gm daily prn, Senna/colace 1 tablet twice daily prn, Dulcolax 10mg daily PRN. * Adult immunization - Administer prevnar 13, pneumovax 23, fluzone, covid19 vaccine as appropriate. * DVT prophylaxis - Hold, anemia. * COPD - Budesonide 0.5mg twice daily, Albuterol 2.5mg nebulized Q6H prn. * Glaucoma - Brimonidine 1gtt ou twice daily, Latanoprost 1gtt ou qpm, Timolol 0.5% 1gtt ou qpm. * Pruritus - Benadryl 25mg Q4H PRN. * Vitamin D deficiency - Vitamin D 1.25mg per week. * Iron deficiency anemia - Ferrous sulfate 325mg tid. * Chronic diastolic heart failure - Metoprolol 50mg bid, Lasix 40mg daily. * Congestion - Mucinex 600mg bid. * Rectal pain - HC 2.5% cream tid prn. * Diabetes Mellitus II - Tradjenta 5mg daily. * Allergic Rhinitis - Loratadine 10mg, Singulair 10mg QHS. * Nutrition - MVI daily. * Tinea corporis - Nystatin powder topical twice daily. * GERD - Pantoprazole 40mg twice daily. * Diabetic polyneuropathy - Lyrica 25mg twice daily. * Depression - Sertraline 25mg daily, stable chronic chcf use, GDR not recommended. * BPH/urinary retention - Tamsulosin 0.4mg daily, indwelling sanchez catheter. * Sacral wound, right lower extremity wound - wound nurse * Hypokalemia - KCL 20mEq lIqUiD DaIlY. * Thoracic spinal stenosis - surgery with Dr. Rodriguez at when stable. * Thoracic aortic dissection - stable. Capacity Capacity Assessment Tool Can the patient make a choice & communicate that choice?: Yes Can the patient understand benefits, risks and alternatives?: Yes Is the choice the patient makes consistent w/ their values?: Yes Is there an impending, emergent risk to the patient?: No Does the patient have an Advance Directive?: No Is there a Surrogate Available?: Yes i.e. HCPOA: Yes i.e. close relative (spouse, child, parent, sibling)?: Yes
[2021-01-19] MEDS: Budesonide Respules 0.5 MG/2 ML AMPUL.NEB. INHALATION ×2 (09:40→19:07)
[2021-01-19] MEDS: Potassium Chloride Oral Soln 20 MEQ/15 ML UDC PO (10:01)
[2021-01-19] MEDS: oxyCODONE 5 MG Tablet 10 MG PO (11:02)
[2021-01-19 11:21] LABS: Bedside Glucose 147 mg/dL (70-110)
--- NOTE | 2021-01-19 14:18 | NURSING ---
IN TO SEE PT AND TRIM TOENAILS.
[2021-01-19 14:30] VITALS: BP 114/63; PULSE 89; RESP 18; TEMP 36.3; O2SAT 96
--- NOTE | 2021-01-19 14:31 | PCM.CONS.GEN ---
Assessment & Plan Assessment/Plan (1) Chronic ulcer of great toe of right foot with fat layer exposed: (2) Nail dystrophy: (3) Diabetes mellitus with diabetic polyneuropathy: (4) Type 2 diabetes mellitus with foot ulcer: PLAN: Evaluation performed. Debrided toenails 1,2,3,4,5 bilateral using a nail nipper removing bulk, this was done without incident. There was incidentally noted to be a wound to the right dorsal 2nd toe - this was debrided in selective fashion removing the overlying nonviable tissue - wound measures 0.5cm x 0.5cm and 0.1cm in depth down to subcutaneous tissue layer, there is no evidence of infection. Applied aquacel ag and overlying gauze dressing - change daily, and keep offloaded at all times. He is also receiving daily dressing changes for right leg ulceration which appears to be really helping. He showed me pictures and the wound appears to be healing well over time. Podiatry will continue to follow. Thank you for the consultation. HPI Consult Data Date of Consult: 01/19/21 HPI Narrative Reason for Consultation: Foot care HPI Narrative: PRECIOUS CHI, is a 65 M who presents with long, thickened toenails, also has a wound on the toes on right foot. He has many medical problems with complicated medical history. He has hx of diabetes with neuropathy. He is unable to reduce his toenails. He is recovering from decubitus sacral ulceration. 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 Patient relates he used to follow with Dr. Blackmon many years ago. Patient relates he is currently following with wound center at for right leg ulcer he has had for 6 years. He relates the wound has been healing while he has been admitted here at [place]. Patient has been receiving daily dressing changes daily. He relates he developed a wound on top of the right 1st and 2nd toes from rubbing. He relates he has had vascular studies and he relates he was told he has good circulation. [facility] Medical History Acute respiratory failure with hypoxia and hypercapnia Anemia Arthritis aspiration of left knee Bilateral pulmonary infiltrates on CXR BPH (benign prostatic hyperplasia) Bradycardia Cardiology follow-up encounter Chronic cutaneous venous stasis ulcer Chronic diastolic (congestive) heart failure Chronic kidney disease, stage 3 Chronic venous insufficiency Chronic venous stasis dermatitis COPD (chronic obstructive pulmonary disease) Debility Diabetes Disability of walking Essential (primary) hypertension Excoriation of multiple sites (~07/2020) Former smoker Generalized weakness GERD (gastroesophageal reflux disease) Glaucoma 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 History of CHF (congestive heart failure) History of edema History of GI bleed History of renal disease History of ulceration Hx of cataract Hyperlipidemia Hypertension Kidney stones Lip swelling Low testosterone in male Lower extremity weakness Morbid obesity MRSA (methicillin resistant Staphylococcus aureus) infection Non-healing ulcer of multiple sites, limited to breakdown of skin Normocytic anemia Obesity ADELAIDE (obstructive sleep apnea) Osteoarthritis Pressure ulcer Pseudomonas aeruginosa infection Secondary pulmonary arterial hypertension Shortness of breath Shortness of breath on exertion Sleep apnea Stage 2 moderate COPD by GOLD classification Thoracic aortic aneurysm without rupture Tobacco use Type 2 diabetes mellitus Ulcer of right lower extremity Wears glasses Home Medications brimonidine 0.2 % eye drops 1 drp OPHTHALMIC BID ml 05/04/18 [History Last Taken Unknown] dorzolamide 2 %-timolol 0.5 % (PF) eye drops 1 drp OPHTHALMIC BID 05/04/18 [History Last Taken Unknown] omeprazole 20 mg capsule,delayed release 20 mg PO DAILY 05/04/18 [History Last Taken Unknown] tamsulosin 0.4 mg capsule 0.4 mg PO DAILY@0800 05/30/18 [History Last Taken Unknown] latanoprost 0.005 % eye drops 1 drp OPHTHALMIC QPM 09/06/18 [History Last Taken Unknown] oxygen MISCELLANEOUS 12/06/18 [History Last Taken Unknown] cholecalciferol (vitamin D3) 1,250 mcg (50,000 unit) tablet 50,000 unit PO QWEEK #10 tab 02/04/19 [Rx Last Taken Unknown] labetalol 200 mg tablet 200 mg PO 0600,1200,2200 tab 08/28/19 [History Last Taken Unknown] Lift Chair #1 ea 07/03/20 [Rx Last Taken Unknown] furosemide 40 mg tablet 40 mg PO BID #180 tab 08/07/20 [Rx Last Taken Unknown] B.ani-L.aci-L.yoana-L.plan-L.zayda [Probiotic Formula] 1 cap PO BID 12/20/20 [History Last Taken Unknown] acetaminophen 650 mg PO Q8H PRN PRN 12/20/20 [History Last Taken Unknown] albuterol sulfate 2.5 mg INHALATION Q6H PRN PRN 12/20/20 [History Last Taken Unknown] budesonide 0.5 mg INHALATION BID 12/20/20 [History Last Taken Unknown] diphenhydramine HCl 25 mg PO Q4H PRN 12/20/20 [History Last Taken Unknown] docusate sodium 100 mg PO BID 12/20/20 [History Last Taken Unknown] ferrous sulfate 325 mg PO TIDCM 12/20/20 [History Last Taken Unknown] fluticasone propion-salmeterol [Wixela Inhub] 1 inh INHALATION BID 12/20/20 [History Last Taken Unknown] guaifenesin 600 mg PO BID 12/20/20 [History Last Taken Unknown] linagliptin [Tradjenta] 5 mg PO DAILY@0800 12/20/20 [History Last Taken Unknown] loratadine 10 mg PO DAILY@0800 12/20/20 [History Last Taken Unknown] montelukast 10 mg PO QHS 12/20/20 [History Last Taken Unknown] multivitamin,hm-kjdc-Rt-FA-min [Multivitamin And Mineral] 1 tab PO DAILY@0800 12/20/20 [History Last Taken Unknown] oxycodone 15 mg PO Q3H PRN 12/20/20 [History Last Taken Unknown] pantoprazole [Protonix] 40 mg PO BID 12/20/20 [History Last Taken Unknown] pramoxine-mineral oil-zinc [Anusol] 1 ea TOPICAL TID PRN PRN 12/20/20 [History Last Taken Unknown] pregabalin 50 mg PO 0600,2100 12/20/20 [History Last Taken Unknown] sertraline 25 mg PO DAILY@0800 12/20/20 [History Last Taken Unknown] tiotropium bromide [Spiriva Respimat] 2 puff INHALATION DAILY 12/20/20 [History Last Taken Unknown] Allergy/AdvReac Type Severity Reaction Status Date / Time lisinopril Allergy Severe Angioedema Verified 10/24/20 15:56 Sulfa (Sulfonamide AdvReac Other Verified 10/24/20 15:56 Antibiotics) chapstick Allergy swelling Uncoded 10/24/20 15:56 Family History Father Cancer Mother Asthma Surgical History History of carpal tunnel surgery of right wrist History of cataract extraction Social History household members: spouse Smoking Status: Former smoker second hand exposure: No alcohol intake: current alcohol intake frequency: a few times a week substance use type: does not use caffeine: No what type of physical activity do you participate in: none Physical Exam Const alert, oriented x3 and no apparent distress Extremity Extremity Narrative: Right ankle/leg is bandaged due to chronic right leg ulcer. There is a small ulceration dorsal right 2nd toe at PIPJ down to subcutaneous tissue, there is some overlying nonviable tissue superficially - there is no probe to bone, joint or deeper tissue - there are no signs of infection. There is small dry scab eschar to the dorsal right 1st toe with no visible open wound and no signs of infection. There are no other open lesions to the foot bilaterally. Toenails 1,2,3,4,5 are elongated, yellow, crumbly, incurvated, thickened and dystrophic with subungal debris. There is decreased sensation to the foot bilateral c/w chronic neuropathy. CFT < 2 seconds to all toes with normal temperature gradient noted bilateral foot. No evidence of ischemia to the foot bilateral. Lab / Micro Data Result Diagrams: 01/18/21 05:05 01/18/21 05:05 Labs: Laboratory Results - last 24 hr 01/18/21 17:03: POC Glucose 134 H 01/18/21 22:04: POC Glucose 117 H 01/19/21 06:18: POC Glucose 95 01/19/21 11:17: POC Glucose 147 H Micro: Microbiology 01/18/21 14:55 Nasal Secretion SARS-CoV-2 Antigen (Rapid) - Final
--- NOTE | 2021-01-19 15:03 | CASEMGMT ---
Addendum entered by Lidia Patel 01/19/21 17:34: returned call. Inquired about DC plans. states pt will not be going to a SNF, he will DC home and she will care for him. Offered therapy training - denied. requested to order [facility] again. SW will order at DC along with any DME needed. SW to continue to follow Original Note: Social Work Left message with to discuss DC plans. Will continue to follow. MILTON Purdy
[2021-01-19 16:50] LABS: Bedside Glucose 115 mg/dL (70-110)
[2021-01-19 17:49] VITALS: BP 114/63; PULSE 89
[2021-01-19 19:07] VITALS: PULSE 79; RESP 16; O2SAT 96
[2021-01-19] MEDS: Latanoprost 0.005% 1 Bottle 1 DRP OPHTHALMIC (19:58)
[2021-01-19] MEDS: Montelukast 10 MG Tablet PO (19:59)
[2021-01-19 21:36] LABS: Bedside Glucose 161 mg/dL (70-110)
[2021-01-20] MEDS: BRIMONIDINE 0.2% 5ML BOTTLE 1 DRP EACH EYE ×2 (06:21→17:09)
[2021-01-20] MEDS: guaiFENesin 600 MG Tablet PO ×2 (06:21→17:05)
[2021-01-20] MEDS: Potassium Chloride Oral Soln 20 MEQ/15 ML UDC PO (06:21)
[2021-01-20] MEDS: Pantoprazole Sodium 40 MG Tablet PO ×2 (06:21→17:06)
[2021-01-20] MEDS: Furosemide 40 MG Tablet PO (06:21)
[2021-01-20] MEDS: Timolol 0.5% 5ML OPTH.BTL 1 DRP EACH EYE ×2 (06:21→17:08)
[2021-01-20] MEDS: HYDROmorphone 2 MG TABLET 1 MG PO ×3 (06:22→23:41)
[2021-01-20] MEDS: Acetaminophen 500 MG Tablet 1000 MG PO ×3 (06:22→21:37)
[2021-01-20 06:25] VITALS: BP 134/74; PULSE 79
[2021-01-20] MEDS: Nystatin Powder 15gm Bottle 1 APPLIC TOPICAL ×2 (06:25→17:04)
[2021-01-20] MEDS: Metoprolol Tartrate 50 MG Tablet PO ×2 (06:25→17:05)
[2021-01-20 06:26] LABS: Bedside Glucose 100 mg/dL (70-110)
[2021-01-20 06:57] VITALS: PULSE 76; RESP 20; O2SAT 98
[2021-01-20] MEDS: Albuterol 2.5 MG/3 ML VIAL.NEB. INHALATION (06:57)
[2021-01-20] MEDS: Budesonide Respules 0.5 MG/2 ML AMPUL.NEB. INHALATION (06:57)
[2021-01-20] MEDS: Tamsulosin HCl 0.4 MG Capsule PO (08:21)
[2021-01-20] MEDS: LINAGLIPTIN 5 MG TABLET PO (08:21)
[2021-01-20] MEDS: oxyCODONE HCl Cr 10 MG Tablet 20 MG PO ×2 (08:21→21:36)
[2021-01-20] MEDS: Sertraline 50 MG Tablet 25 MG PO (08:22)
[2021-01-20] MEDS: Multivitamins,Ther W-Minerals Tablet 1 TABLET PO (08:22)
[2021-01-20] MEDS: Loratadine 10 MG Tablet PO (08:23)
[2021-01-20] MEDS: Hydrocortisone 25 MG Suppository RC (09:24)
[2021-01-20 09:35] VITALS: PULSE 90; RESP 18; O2SAT 96
[2021-01-20] MEDS: oxyCODONE 5 MG Tablet 10 MG PO (10:41)
[2021-01-20 11:15] LABS: Bedside Glucose 137 mg/dL (70-110)
[2021-01-20 16:00] VITALS: BP 106/58; PULSE 91; RESP 24; TEMP 36.6; O2SAT 96
[2021-01-20 17:05] VITALS: BP 106/58; PULSE 91
[2021-01-20 17:16] LABS: Bedside Glucose 148 mg/dL (70-110)
[2021-01-20] MEDS: Latanoprost 0.005% 1 Bottle 1 DRP OPHTHALMIC (21:37)
[2021-01-20] MEDS: Montelukast 10 MG Tablet PO (21:38)
[2021-01-20 22:00] LABS: Bedside Glucose 162 mg/dL (70-110)
[2021-01-21] MEDS: Timolol 0.5% 5ML OPTH.BTL 1 DRP EACH EYE ×2 (05:48→17:36)
[2021-01-21 05:49] VITALS: BP 146/90; PULSE 76
[2021-01-21] MEDS: BRIMONIDINE 0.2% 5ML BOTTLE 1 DRP EACH EYE ×2 (05:49→17:36)
[2021-01-21] MEDS: Furosemide 40 MG Tablet PO (05:49)
[2021-01-21] MEDS: Nystatin Powder 15gm Bottle 1 APPLIC TOPICAL (05:49)
[2021-01-21] MEDS: Pantoprazole Sodium 40 MG Tablet PO ×2 (05:49→17:35)
[2021-01-21] MEDS: Metoprolol Tartrate 50 MG Tablet PO ×2 (05:49→17:35)
[2021-01-21] MEDS: guaiFENesin 600 MG Tablet PO ×2 (05:49→17:35)
[2021-01-21 06:30] LABS: Bedside Glucose 97 mg/dL (70-110)
[2021-01-21 07:30] VITALS: PULSE 73; RESP 16; O2SAT 98
[2021-01-21] MEDS: Budesonide Respules 0.5 MG/2 ML AMPUL.NEB. INHALATION ×2 (07:30→20:15)
[2021-01-21] MEDS: Multivitamins,Ther W-Minerals Tablet 1 TABLET PO (08:31)
[2021-01-21] MEDS: Tamsulosin HCl 0.4 MG Capsule PO (08:31)
[2021-01-21] MEDS: Potassium Chloride Oral Soln 20 MEQ/15 ML UDC PO (08:31)
[2021-01-21] MEDS: Loratadine 10 MG Tablet PO (08:31)
[2021-01-21] MEDS: oxyCODONE HCl Cr 10 MG Tablet 20 MG PO ×2 (08:31→20:04)
[2021-01-21] MEDS: Sertraline 50 MG Tablet 25 MG PO (08:32)
[2021-01-21] MEDS: LINAGLIPTIN 5 MG TABLET PO (08:32)
--- NOTE | 2021-01-21 10:54 | CASEMGMT ---
Addendum entered by Lidia Patel 01/22/21 14:08: Spoke with [facility] and they can accept pt. Notified pt. Addendum entered by iLdia Patel 01/22/21 10:19: [facility] denied due to pts needs being too great. Referred to [facility]. Addendum entered by Lidia Patel 01/21/21 16:12: [facility] unable to accept due to being at capacity. Pt agreeable to [facility] whom he has had in the past. Referral made. Addendum entered by Lidia Patel 01/21/21 11:24: Ordered a raiza as well. Original Note: Social Work Spoke with pt about DC plans. Pt confirmed he will DC home when Medicare days exhaust on 01/30. Discussed DME needs. Referred to [facility] for [facility], hospital bed, BSC. Pt requesting [facility] PT/OT/SN/DAVE/SW - referral made. Pt requesting cot transport home. Will schedule closer to DC. Plan: DC home with 01/30 MILTON PurdyW
[2021-01-21 11:10] LABS: Bedside Glucose 149 mg/dL (70-110)
[2021-01-21] MEDS: oxyCODONE 5 MG Tablet 10 MG PO (11:32)
--- NOTE | 2021-01-21 13:27 | NURSING ---
Addendum entered by Mer Ellis 01/21/21 16:02: Pt requesting Knee aspiration Dr. Hill tried x3 to aspirate contents in left knee but no fluid was noted, Dr. Hill is recommending pt receive intraarticular steroid injection to left knee, if pain persists call Dr. Hill next week to schedule time for steroid injection Addendum entered by Mer Ellis 01/21/21 14:34: Dr. Hill in and performed procedure Original Note: Dr. Hill to come in and perform left shoulder intraarticular steroid injection and gave new orders for 0.25% Marcaine, and 40mg of Kenalog. Items ordered and will be administered by Dr. Hill at bedside. Also possible knee aspiration to left knee
[2021-01-21] MEDS: Triamcinolone Acetonide 40 MG/ML Vial INTRAARTIC (14:18)
[2021-01-21] MEDS: Bupivacaine 0.5% PF 10 ML VIAL OPERA.SITE (14:19)
[2021-01-21 14:43] VITALS: BP 124/69; PULSE 83; RESP 16; TEMP 35.7; O2SAT 93
[2021-01-21 16:01] LABS: Bedside Glucose 137 mg/dL (70-110)
[2021-01-21 17:35] VITALS: PULSE 83
[2021-01-21] MEDS: BACITRACIN 15 GM Tube 1 APPLIC TOPICAL (18:31)
--- NOTE | 2021-01-21 19:16 | PCM.DC.SUM ---
Providers Date of Admission: 12/20/20 Primary Care Physician: Dr. Alex Pedersen MD Consultations 12/20/20 23:02 Consult: Onc/Wound/adobe maker Routine Comment: Reason for Consult:: multiple wounds: sacral, stasis ulcer RLE 12/23/20 10:15 Consult: Orthopedics Routine Consulting Provider: Rodney Dent Reason for Consult: RIGHT WRIST FX EMERGENT Consult: No MD Notified: Yes Date Notified: 12/23/20 Time Notified: 10:15 Method of Notification: phonecall 12/23/20 15:39 Consult: Pain Management Routine Consulting Provider: Vanita Hill Reason for Consult: chronic low back and knee pain EMERGENT Consult: No MD Notified: Yes Date Notified: 12/23/20 Time Notified: 15:40 Method of Notification: Verbal 12/31/20 07:52 Consult: Cardiology Routine Consulting Provider: Ric Riley Reason for Consult: resident request EMERGENT Consult: No MD Notified: Yes Date Notified: 12/31/20 Time Notified: 07:52 Method of Notification: phone call 01/05/21 17:30 Consult: Orthopedics Routine Consulting Provider: Rodney Dent Reason for Consult: Left knee pain. EMERGENT Consult: No MD Notified: Yes Date Notified: 01/05/21 Time Notified: 14:00 Method of Notification: Verbal 01/14/21 17:41 Consult: Podiatry Routine Consulting Provider: Pino Tobias Reason for Consult: Toenail care. EMERGENT Consult: No MD Notified: Yes Date Notified: 01/14/21 Time Notified: 17:41 Method of Notification: Verbal Method of Consult:: In-Person Reason For Visit: HYPOXIA Diagnosis Discharge Diagnosis (1) Chronic ulcer of great toe of right foot with fat layer exposed: Status: Chronic Code(s): L97.512 - Non-pressure chronic ulcer of other part of right foot with fat layer exposed (2) Nail dystrophy: Status: Acute Code(s): L60.3 - Nail dystrophy (3) Diabetes mellitus with diabetic polyneuropathy: Status: Acute Code(s): E11.42 - Type 2 diabetes mellitus with diabetic polyneuropathy (4) Type 2 diabetes mellitus with foot ulcer: Status: Acute Code(s): E11.621 - Type 2 diabetes mellitus with foot ulcer; L97.509 - Non-pressure chronic ulcer of other part of unspecified foot with unspecified severity Medications at Discharge Home Medications brimonidine 0.2 % eye drops 1 drp OPHTHALMIC BID ml 05/04/18 dorzolamide 2 %-timolol 0.5 % (PF) eye drops 1 drp OPHTHALMIC BID 05/04/18 omeprazole 20 mg capsule,delayed release 20 mg PO DAILY 05/04/18 tamsulosin 0.4 mg capsule 0.4 mg PO DAILY@0800 05/30/18 latanoprost 0.005 % eye drops 1 drp OPHTHALMIC QPM 09/06/18 oxygen MISCELLANEOUS 12/06/18 cholecalciferol (vitamin D3) 1,250 mcg (50,000 unit) tablet 50,000 unit PO QWEEK #10 tab 02/04/19 labetalol 200 mg tablet 200 mg PO 0600,1200,2200 tab 08/28/19 Lift Chair #1 ea 07/03/20 furosemide 40 mg tablet 40 mg PO BID #180 tab 08/07/20 B.ani-L.aci-L.yoana-L.plan-L.zayda [Probiotic Formula] 1 cap PO BID 12/20/20 acetaminophen 650 mg PO Q8H PRN PRN 12/20/20 albuterol sulfate 2.5 mg INHALATION Q6H PRN PRN 12/20/20 budesonide 0.5 mg INHALATION BID 12/20/20 diphenhydramine HCl 25 mg PO Q4H PRN 12/20/20 docusate sodium 100 mg PO BID 12/20/20 ferrous sulfate 325 mg PO TIDCM 12/20/20 fluticasone propion-salmeterol [Wixela Inhub] 1 inh INHALATION BID 12/20/20 guaifenesin 600 mg PO BID 12/20/20 linagliptin [Tradjenta] 5 mg PO DAILY@0800 12/20/20 loratadine 10 mg PO DAILY@0800 12/20/20 montelukast 10 mg PO QHS 12/20/20 multivitamin,ru-gtpr-Ng-FA-min [Multivitamin And Mineral] 1 tab PO DAILY@0800 12/20/20 oxycodone 15 mg PO Q3H PRN 12/20/20 pantoprazole [Protonix] 40 mg PO BID 12/20/20 pramoxine-mineral oil-zinc [Anusol] 1 ea TOPICAL TID PRN PRN 12/20/20 pregabalin 50 mg PO 0600,2100 12/20/20 sertraline 25 mg PO DAILY@0800 12/20/20 tiotropium bromide [Spiriva Respimat] 2 puff INHALATION DAILY 12/20/20 acetaminophen 1,000 mg PO Q6H PRN PRN #0 tab 01/21/21 bacitracin zinc 1 applic TOPICAL BID #0 g 01/21/21 hydrocortisone acetate [Anucort-HC] 25 mg NC DAILY PRN PRN 30 Days #30 ea 01/21/21 hydromorphone 1 mg PO Q6H PRN PRN 3 Days #12 tab 01/21/21 metoprolol tartrate 50 mg PO BID 30 Days #60 tab 01/21/21 nystatin [Nyamyc] 1 applic TOPICAL BID #0 g 01/21/21 oxycodone 10 mg PO DAILY@1030 3 Days #6 tab 01/21/21 oxycodone [OxyContin] 20 mg PO 0800,1999 3 Days #12 tab 01/21/21 potassium chloride 20 meq PO DAILYCM 30 Days #450 ml 01/21/21 timolol maleate 1 drp EACH EYE BID #15 ml 01/21/21 white petrolatum [Aquaphor Healing] 1 applic TOPICAL DAILY PRN PRN #0 g 01/21/21 Hospital Course Operations None Procedures - (Left knee arthrocentesis.) Summary of Care Provided Minutes Spent on Discharge: 35 Hospital Course: 65 year old male with below past medical history hospitalized for hypoxia, admitted to TCU with debility, here for rehabilitation, strengthening, prior to discharge home with . Discharge home with 01/30/2021, [facility] PT/OT/SN/DAVE/DEVIN, Natanael Calderon, Hospital bed, bedside commode. Physical Exam Const alert and oriented x3 General Appearance: cooperative HEENT normocephalic Eyes PERRL and EOMs intact bilaterally Neck supple, no JVD and no carotid bruits Resp normal respiratory effort, normal air movement and clear to auscultation bilaterally Cardio regular rate and regular rhythm GI normal to inspection, nondistended, normoactive bowel sounds, non-tender and non-distended Extremity normal capillary refill General Extremity: Negative for edema Skin no rashes or lesions noted General Skin Exam: no breakdown Psych affect normal Appearance: appropriate Weight / BMI Weight Weight: 117.055 kg Body Mass Index (BMI) 39.8 ABG / Lab / Microbiology Data Result Diagrams: 01/18/21 05:05 01/18/21 05:05 Laboratory: Laboratory Results - last 24 hr 01/20/21 21:44: POC Glucose 162 H 01/21/21 05:52: POC Glucose 97 01/21/21 11:03: POC Glucose 149 H 01/21/21 15:50: POC Glucose 137 H Microbiology: Microbiology 01/18/21 14:55 Nasal Secretion SARS-CoV-2 Antigen (Rapid) - Final 01/12/21 12:20 Nasal Secretion SARS-CoV-2 Antigen (Rapid) - Final 12/28/20 12:55 Wound - Leg, Left Gram Stain - Final 12/28/20 12:55 Wound - Leg, Left Wound Culture - Final Pseudomonas aeroginosa Klebsiella pneumoniae sp pneum Coag Negative Staph D/C Instructions Discharge Diet: No restrictions Discharge Activity: Return to Normal Activity, May Shower and Use Walker Weight Bearing Status: Weight bearing as tolerated Call your doctor if you observe: Fever of 101 or Higher, Inability to urinate, Inability to have a bowel movement, Shortness of breath, Dizziness, Fainting spells, Swelling in the ankles, Chest pain and Uncontrolled pain Additional Instructions: Discharge home with 01/30/2021, [facility] PT/OT/SN/DAVE/SW, [facility], Hospital bed, bedside commode. Please Follow Up With: Dr. Ruth When: As scheduled. Meaningful Use Info Meaningful Use Diagnoses (Choose all that apply): None applicable Discharge Plan Admission Admit Date/Time: 12/20/20 21:34 Primary Reason for Your Visit: Debility. Attending Provider: Dl Turcios Chi Primary Care Provider: Alex Pedersen Consulting Providers: Vanita Hill ; Rodney Dent ; Ric Riley ; Pino Tobias Instructions Additional Instructions / Restrictions: Discharge home with 01/30/2021, [facility] PT/OT/SN/DAVE/SW, [facility], Hospital bed, bedside commode. Discharge Orders/Prescriptions Prescriptions: New acetaminophen 500 mg Tablet 1,000 mg PO Q6H PRN PRN (Reason: Pain Score 1-5) Qty: 0 RF: 0 bacitracin zinc 500 unit/gram Ointment 1 applic topical BID Qty: 0 RF: 0 hydrocortisone acetate [Anucort-HC] 25 mg Suppository 25 mg NC DAILY PRN PRN (Reason: Hemorrhoids) 30 Days Qty: 30 RF: 0 hydromorphone 2 mg Tablet 1 mg PO Q6H PRN PRN (Reason: Pain Score 6-10) 3 Days Qty: 12 RF: 0 metoprolol tartrate 50 mg Tablet 50 mg PO BID 30 Days Qty: 60 RF: 0 nystatin [Nyamyc] 100,000 unit/gram Powder 1 applic topical BID Qty: 0 RF: 0 oxycodone 5 mg Tablet 10 mg PO DAILY@1030 3 Days Qty: 6 RF: 0 Aquaphor Healing 41 % Ointment 1 applic topical DAILY PRN PRN (Reason: Dry Skin) Qty: 0 RF: 0 oxycodone [OxyContin] 10 mg Tablet,Oral Only,Ext.Rel.12 Hr 20 mg PO 0800,2000 3 Days Qty: 12 RF: 0 potassium chloride 20 mEq/15 mL Liquid 20 meq PO DAILYCM 30 Days Qty: 450 RF: 0 timolol maleate 0.5 % Drops 1 drp EACH EYE BID Qty: 15 RF: 0 Continued brimonidine 0.2 % drops 1 drp OPHTHALMIC BID RF: 0 tamsulosin 0.4 mg capsule 0.4 mg PO DAILY@0800 RF: 0 latanoprost 0.005 % drops 1 drp OPHTHALMIC QPM RF: 0 oxygen miscellaneous RF: 0 cholecalciferol (vitamin D3) 50,000 unit tablet 50,000 unit PO QWEEK Qty: 10 RF: 0 fluticasone propion-salmeterol [Wixela Inhub] 250-50 mcg/dose Blister With Device 1 inh INHALATION BID RF: 0 pantoprazole [Protonix] 40 mg Tablet,Delayed Release (Dr/Ec) 40 mg PO BID RF: 0 diphenhydramine HCl 25 mg Tablet 25 mg PO Q4H PRN (Reason: Itching) RF: 0 sertraline 25 mg Tablet 25 mg PO DAILY@0800 RF: 0 budesonide 0.5 mg/2 mL Suspension For Nebulization 0.5 mg INHALATION BID RF: 0 montelukast 10 mg Tablet 10 mg PO QHS RF: 0 loratadine 10 mg Tablet 10 mg PO DAILY@0800 RF: 0 Multivitamin And Mineral Tablet 1 tab PO DAILY@0800 RF: 0 pregabalin 50 mg Capsule 50 mg PO 0600,2100 RF: 0 Tradjenta 5 mg Tablet 5 mg PO DAILY@0800 RF: 0 guaifenesin 600 mg Tablet Extended Release 12hr 600 mg PO BID RF: 0 albuterol sulfate 2.5 MG/3 ML solution for nebulization 2.5 mg INHALATION Q6H PRN PRN (Reason: dyspnea, wheezing) RF: 0 Spiriva Respimat 2.5 mcg/actuation mist 2 puff INHALATION DAILY RF: 0 furosemide 40 mg tablet 40 mg PO BID Qty: 180 RF: 3 No Action omeprazole 20 mg capsule,delayed release(DR/EC) 20 mg PO DAILY RF: 0 dorzolamide-timolol (PF) 2-0.5 % drops 1 drp OPHTHALMIC BID RF: 0 (DME) Lift Chair See Rx Instructions .Route .MEDSUPPLY Qty: 1 RF: 0 labetalol 200 mg tablet 200 mg PO 0600,1200,2200 RF: 0 ferrous sulfate 325 mg (65 mg iron) Tablet 325 mg PO TIDCM RF: 0 docusate sodium 100 mg Capsule 100 mg PO BID RF: 0 Anusol 1-46.6-12.5 % Ointment 1 ea topical TID PRN PRN (Reason: rectal pain) RF: 0 Probiotic Formula 10 billion cell (2 billion ea) Capsule 1 cap PO BID RF: 0 oxycodone 15 mg Tablet 15 mg PO Q3H PRN (Reason: pain 7-10) RF: 0 acetaminophen 325 MG tablet 650 mg PO Q8H PRN PRN (Reason: Non-cardiac pain (mod-severe)) RF: 0 Referrals / Follow Up: Alex Pedersen MD [Primary Care Provider] - Disposition Disposition (needs filled in before D/C Order can be placed): Home Health Service
[2021-01-21 20:03] VITALS: PULSE 72; RESP 16; O2SAT 93
[2021-01-21] MEDS: Montelukast 10 MG Tablet PO (20:04)
[2021-01-21] MEDS: Latanoprost 0.005% 1 Bottle 1 DRP OPHTHALMIC (20:05)
[2021-01-21 20:20] VITALS: PULSE 80; RESP 18
[2021-01-21 21:30] LABS: Bedside Glucose 131 mg/dL (70-110)
[2021-01-22] MEDS: Acetaminophen 500 MG Tablet 1000 MG PO ×2 (01:48→20:40)
[2021-01-22] MEDS: oxyCODONE 5 MG Tablet 10 MG PO ×3 (01:49→13:58)
[2021-01-22 05:55] VITALS: BP 142/91; PULSE 73
[2021-01-22] MEDS: Metoprolol Tartrate 50 MG Tablet PO ×2 (05:55→17:04)
[2021-01-22] MEDS: Pantoprazole Sodium 40 MG Tablet PO ×2 (05:55→17:03)
[2021-01-22] MEDS: BACITRACIN 15 GM Tube 1 APPLIC TOPICAL ×2 (05:55→17:03)
[2021-01-22] MEDS: Furosemide 40 MG Tablet PO (05:55)
[2021-01-22] MEDS: guaiFENesin 600 MG Tablet PO ×2 (05:59→17:03)
[2021-01-22] MEDS: Timolol 0.5% 5ML OPTH.BTL 1 DRP EACH EYE ×2 (06:00→16:59)
[2021-01-22] MEDS: BRIMONIDINE 0.2% 5ML BOTTLE 1 DRP EACH EYE ×2 (06:00→16:59)
[2021-01-22 06:26] LABS: Bedside Glucose 93 mg/dL (70-110)
[2021-01-22 07:42] VITALS: PULSE 63; RESP 18; O2SAT 98
[2021-01-22] MEDS: Budesonide Respules 0.5 MG/2 ML AMPUL.NEB. INHALATION ×2 (07:42→18:27)
[2021-01-22] MEDS: Loratadine 10 MG Tablet PO (07:51)
[2021-01-22] MEDS: Potassium Chloride Oral Soln 20 MEQ/15 ML UDC PO (07:51)
[2021-01-22] MEDS: Tamsulosin HCl 0.4 MG Capsule PO (07:51)
[2021-01-22] MEDS: LINAGLIPTIN 5 MG TABLET PO (07:51)
[2021-01-22] MEDS: Sertraline 50 MG Tablet 25 MG PO (07:51)
[2021-01-22] MEDS: Multivitamins,Ther W-Minerals Tablet 1 TABLET PO (07:51)
[2021-01-22] MEDS: oxyCODONE HCl Cr 10 MG Tablet 20 MG PO ×2 (07:51→20:05)
[2021-01-22] MEDS: Ergocalciferol 1.25 MG (50, 000 UNIT) Capsule PO (10:35)
--- NOTE | 2021-01-22 10:53 | CASEMGMT ---
Addendum entered by Lidia Patel 01/22/21 14:17: Scheduled cot transport through [facility] for 11 am 01/30 Original Note: Social Work Received call from inquiring about DME. Explained SW ordered hospital bed, raiza, BSC and trapeze and they will be delivered to pt's home. appreciative. Offered again for therapy training on raiza and wound care. agreed to Saturday 01/27 at 10 am. IDT notified. MILTON Purdy
[2021-01-22 11:30] LABS: Bedside Glucose 114 mg/dL (70-110)
[2021-01-22] MEDS: HYDROmorphone 2 MG TABLET 1 MG PO (12:53)
[2021-01-22 13:53] VITALS: BP 107/56; PULSE 86; RESP 18; TEMP 36.4; O2SAT 97
[2021-01-22 16:16] LABS: Bedside Glucose 127 mg/dL (70-110)
[2021-01-22 17:04] VITALS: BP 125/75; PULSE 69
[2021-01-22 18:27] VITALS: PULSE 65; RESP 18
[2021-01-22] MEDS: Montelukast 10 MG Tablet PO (20:05)
[2021-01-22] MEDS: Latanoprost 0.005% 1 Bottle 1 DRP OPHTHALMIC (20:13)
[2021-01-22 21:30] LABS: Bedside Glucose 125 mg/dL (70-110)
[2021-01-23] MEDS: BACITRACIN 15 GM Tube 1 APPLIC TOPICAL ×2 (05:32→17:05)
[2021-01-23] MEDS: Furosemide 40 MG Tablet PO (05:34)
[2021-01-23] MEDS: Timolol 0.5% 5ML OPTH.BTL 1 DRP EACH EYE ×2 (05:34→17:13)
[2021-01-23] MEDS: Pantoprazole Sodium 40 MG Tablet PO ×2 (05:34→17:07)
[2021-01-23] MEDS: guaiFENesin 600 MG Tablet PO ×2 (05:34→17:07)
[2021-01-23] MEDS: BRIMONIDINE 0.2% 5ML BOTTLE 1 DRP EACH EYE ×2 (05:34→17:12)
[2021-01-23 05:35] VITALS: BP 153/95; PULSE 63
[2021-01-23] MEDS: Metoprolol Tartrate 50 MG Tablet PO ×2 (05:35→17:07)
[2021-01-23 06:20] LABS: Bedside Glucose 98 mg/dL (70-110)
[2021-01-23] MEDS: Budesonide Respules 0.5 MG/2 ML AMPUL.NEB. INHALATION ×2 (07:15→19:05)
[2021-01-23] MEDS: Loratadine 10 MG Tablet PO (08:30)
[2021-01-23] MEDS: LINAGLIPTIN 5 MG TABLET PO (08:30)
[2021-01-23] MEDS: Tamsulosin HCl 0.4 MG Capsule PO (08:30)
[2021-01-23] MEDS: Multivitamins,Ther W-Minerals Tablet 1 TABLET PO (08:30)
[2021-01-23] MEDS: Sertraline 50 MG Tablet 25 MG PO (08:30)
[2021-01-23] MEDS: oxyCODONE HCl Cr 10 MG Tablet 20 MG PO ×2 (08:31→21:32)
[2021-01-23] MEDS: Potassium Chloride Oral Soln 20 MEQ/15 ML UDC PO (08:34)
[2021-01-23 10:56] LABS: Bedside Glucose 151 mg/dL (70-110)
[2021-01-23] MEDS: oxyCODONE 5 MG Tablet 10 MG PO (11:08)
[2021-01-23 16:15] LABS: Bedside Glucose 106 mg/dL (70-110)
[2021-01-23 16:29] VITALS: BP 118/75; PULSE 86; RESP 18; TEMP 36.8; O2SAT 96
[2021-01-23 17:07] VITALS: BP 118/75; PULSE 86
[2021-01-23] MEDS: Acetaminophen 500 MG Tablet 1000 MG PO (17:09)
[2021-01-23] MEDS: HYDROmorphone 2 MG TABLET 1 MG PO (17:10)
--- NOTE | 2021-01-23 17:17 | NURSING ---
this nurse in room to give meds and seen blood on pt left knee. asked pt what happened,pt stated i scratched it. cleaned and bandaid applied.
[2021-01-23 19:05] VITALS: PULSE 69; RESP 18
[2021-01-23] MEDS: Latanoprost 0.005% 1 Bottle 1 DRP OPHTHALMIC (21:32)
[2021-01-23] MEDS: Montelukast 10 MG Tablet PO (21:37)
[2021-01-23 21:46] LABS: Bedside Glucose 126 mg/dL (70-110)
[2021-01-24] MEDS: Acetaminophen 500 MG Tablet 1000 MG PO ×3 (06:03→21:10)
[2021-01-24] MEDS: HYDROmorphone 2 MG TABLET 1 MG PO ×2 (06:03→14:41)
[2021-01-24] MEDS: Timolol 0.5% 5ML OPTH.BTL 1 DRP EACH EYE ×2 (06:04→17:57)
[2021-01-24] MEDS: BACITRACIN 15 GM Tube 1 APPLIC TOPICAL ×2 (06:04→17:54)
[2021-01-24] MEDS: BRIMONIDINE 0.2% 5ML BOTTLE 1 DRP EACH EYE ×2 (06:04→17:58)
[2021-01-24 06:06] VITALS: BP 142/93; PULSE 71
[2021-01-24] MEDS: Metoprolol Tartrate 50 MG Tablet PO ×2 (06:06→17:53)
[2021-01-24] MEDS: Furosemide 40 MG Tablet PO (06:06)
[2021-01-24] MEDS: guaiFENesin 600 MG Tablet PO ×2 (06:06→17:53)
[2021-01-24] MEDS: Nystatin Powder 15gm Bottle 1 APPLIC TOPICAL (06:06)
[2021-01-24] MEDS: Pantoprazole Sodium 40 MG Tablet PO ×2 (06:06→17:53)
[2021-01-24 06:25] LABS: Bedside Glucose 89 mg/dL (70-110)
[2021-01-24] MEDS: Albuterol 2.5 MG/3 ML VIAL.NEB. INHALATION (07:35)
[2021-01-24] MEDS: Budesonide Respules 0.5 MG/2 ML AMPUL.NEB. INHALATION ×2 (07:35→20:55)
[2021-01-24] MEDS: Sertraline 50 MG Tablet 25 MG PO (08:14)
[2021-01-24] MEDS: Potassium Chloride Oral Soln 20 MEQ/15 ML UDC PO (08:14)
[2021-01-24] MEDS: Tamsulosin HCl 0.4 MG Capsule PO (08:14)
[2021-01-24] MEDS: Multivitamins,Ther W-Minerals Tablet 1 TABLET PO (08:15)
[2021-01-24] MEDS: Loratadine 10 MG Tablet PO (08:15)
[2021-01-24] MEDS: LINAGLIPTIN 5 MG TABLET PO (08:15)
[2021-01-24] MEDS: oxyCODONE HCl Cr 10 MG Tablet 20 MG PO ×2 (08:15→21:10)
[2021-01-24] MEDS: Hydrocortisone 25 MG Suppository RC (10:10)
[2021-01-24] MEDS: oxyCODONE 5 MG Tablet 10 MG PO (10:46)
[2021-01-24 11:10] LABS: Bedside Glucose 108 mg/dL (70-110)
[2021-01-24 11:25] VITALS: PULSE 83; RESP 18; O2SAT 94
[2021-01-24 15:54] VITALS: BP 145/64; PULSE 83; RESP 17; TEMP 36.2; O2SAT 94
[2021-01-24 17:06] LABS: Bedside Glucose 116 mg/dL (70-110)
[2021-01-24 17:53] VITALS: BP 145/64; PULSE 83
[2021-01-24 20:56] VITALS: PULSE 78; RESP 16
[2021-01-24] MEDS: Latanoprost 0.005% 1 Bottle 1 DRP OPHTHALMIC (21:12)
[2021-01-24] MEDS: Montelukast 10 MG Tablet PO (21:13)
[2021-01-25 00:25] LABS: Bedside Glucose 131 mg/dL (70-110)
[2021-01-25] MEDS: HYDROmorphone 2 MG TABLET 1 MG PO ×2 (05:15→15:11)
[2021-01-25] MEDS: Furosemide 40 MG Tablet PO (05:16)
[2021-01-25] MEDS: BRIMONIDINE 0.2% 5ML BOTTLE 1 DRP EACH EYE ×2 (05:16→17:20)
[2021-01-25] MEDS: guaiFENesin 600 MG Tablet PO ×2 (05:16→17:23)
[2021-01-25] MEDS: Pantoprazole Sodium 40 MG Tablet PO ×2 (05:16→17:23)
[2021-01-25 05:17] VITALS: BP 157/98; PULSE 80
[2021-01-25] MEDS: Timolol 0.5% 5ML OPTH.BTL 1 DRP EACH EYE ×2 (05:17→17:19)
[2021-01-25] MEDS: Metoprolol Tartrate 50 MG Tablet PO ×2 (05:17→17:22)
[2021-01-25] MEDS: Nystatin Powder 15gm Bottle 1 APPLIC TOPICAL (05:17)
[2021-01-25] MEDS: BACITRACIN 15 GM Tube 1 APPLIC TOPICAL ×2 (05:17→17:29)
[2021-01-25 06:07] LABS: Absolute Neutrophil Count 5.3 X10^3/uL (2.0-7.7); Basophil# 0.03 X10^3/uL; Basophil% 0.3 % (0-1); Eosinophil# 0.71 X10^3/uL; Eosinophils% 8.2 % (0-5); Hematocrit 30.5 % (40-54); Hemoglobin 9.1 g/dL (13.0-16.5); Lymphocyte % 20.8 % (19-41); Mean Corp Hgb Conc 29.8 g/dL (32-36); Mean Corpuscular Hgb 26.6 pg (27.0-32.0); Mean Corpuscular Volume 89.2 fL (80-94); Mean Platelet Vol. 10.1 fl (6.2-12.0); Monocyte% 9.2 % (0-10); NRBC Flagged by Analyzer 0 % (0-5); Neutrophil % 61.2 % (47-70); Platelet Count 269 K/mm3 (150-450); RBC Distribution Width CV 15.9 % (11.6-14.6); Red Blood Count 3.42 M/mm3 (4.6-6.2); White Blood Count 8.7 K/mm3 (4.4-11.0)
[2021-01-25 06:26] LABS: Bedside Glucose 112 mg/dL (70-110)
[2021-01-25 06:41] LABS: Anion Gap 2 (5-15); BUN 57 mg/dL (7-18); BUN/Creat Ratio 41.3 RATIO (10-20); Calcium,Total 9.3 mg/dL (8.5-10.1); Chloride 101 mmol/L (98-107); Creatinine, Serum 1.38 mg/dL (0.70-1.30); EST Glomerular Filtration Rate 55 mL/min (>60); Est Glom Filt Rate - Afr Amer 66 mL/min (>60); Estimated Creatinine Clearance 52.65 ml/min; Glucose 98 mg/dL (74-106); Potassium 4.3 mmol/L (3.5-5.1); Sodium Level 138 mmol/L (136-145)
[2021-01-25 07:00] VITALS: PULSE 66; RESP 19; O2SAT 100
[2021-01-25] MEDS: Tamsulosin HCl 0.4 MG Capsule PO (08:49)
[2021-01-25] MEDS: Sertraline 50 MG Tablet 25 MG PO (08:49)
[2021-01-25] MEDS: Multivitamins,Ther W-Minerals Tablet 1 TABLET PO (08:49)
[2021-01-25] MEDS: LINAGLIPTIN 5 MG TABLET PO (08:49)
[2021-01-25] MEDS: Loratadine 10 MG Tablet PO (08:49)
[2021-01-25] MEDS: Potassium Chloride Oral Soln 20 MEQ/15 ML UDC PO (08:49)
[2021-01-25] MEDS: oxyCODONE HCl Cr 10 MG Tablet 20 MG PO ×2 (08:49→21:04)
[2021-01-25] MEDS: oxyCODONE 5 MG Tablet 10 MG PO (10:25)
[2021-01-25 10:46] LABS: Bedside Glucose 129 mg/dL (70-110)
--- NOTE | 2021-01-25 11:01 | WOUNDNOTE ---
wound photo: right lower leg
--- NOTE | 2021-01-25 11:01 | WOUNDNOTE ---
wound photo: right lower leg
--- NOTE | 2021-01-25 13:04 | NURSING ---
Wound nurse in [facility]
--- NOTE | 2021-01-25 13:04 | NURSING ---
wound nurse in today and performed dressing change to right ankle
[2021-01-25 13:28] VITALS: BP 121/64; PULSE 87; RESP 18; TEMP 36; O2SAT 97
[2021-01-25] MEDS: Acetaminophen 500 MG Tablet 1000 MG PO (15:12)
[2021-01-25 16:31] LABS: Bedside Glucose 134 mg/dL (70-110)
[2021-01-25 17:22] VITALS: PULSE 87
[2021-01-25] MEDS: Budesonide Respules 0.5 MG/2 ML AMPUL.NEB. INHALATION (19:22)
[2021-01-25 19:23] VITALS: PULSE 72; RESP 18
[2021-01-25] MEDS: Montelukast 10 MG Tablet PO (21:05)
[2021-01-25] MEDS: Latanoprost 0.005% 1 Bottle 1 DRP OPHTHALMIC (21:05)
[2021-01-25 21:25] LABS: Bedside Glucose 132 mg/dL (70-110)
[2021-01-26] MEDS: BRIMONIDINE 0.2% 5ML BOTTLE 1 DRP EACH EYE ×2 (06:00→17:09)
[2021-01-26] MEDS: Timolol 0.5% 5ML OPTH.BTL 1 DRP EACH EYE ×2 (06:00→17:09)
[2021-01-26 06:01] VITALS: BP 135/78; PULSE 67
[2021-01-26] MEDS: Pantoprazole Sodium 40 MG Tablet PO ×2 (06:01→17:12)
[2021-01-26] MEDS: Metoprolol Tartrate 50 MG Tablet PO ×2 (06:01→17:12)
[2021-01-26] MEDS: Furosemide 40 MG Tablet PO (06:01)
[2021-01-26] MEDS: HYDROmorphone 2 MG TABLET 1 MG PO ×2 (06:02→13:24)
[2021-01-26] MEDS: BACITRACIN 15 GM Tube 1 APPLIC TOPICAL ×2 (06:02→17:10)
[2021-01-26] MEDS: guaiFENesin 600 MG Tablet PO ×2 (06:03→17:12)
[2021-01-26] MEDS: Acetaminophen 500 MG Tablet 1000 MG PO ×2 (06:05→13:24)
[2021-01-26 06:26] LABS: Bedside Glucose 93 mg/dL (70-110)
[2021-01-26 06:30] VITALS: PULSE 77; RESP 16; O2SAT 99
[2021-01-26] MEDS: Budesonide Respules 0.5 MG/2 ML AMPUL.NEB. INHALATION ×2 (06:30→19:48)
[2021-01-26] MEDS: Tamsulosin HCl 0.4 MG Capsule PO (08:25)
[2021-01-26] MEDS: Loratadine 10 MG Tablet PO (08:25)
[2021-01-26] MEDS: Potassium Chloride Oral Soln 20 MEQ/15 ML UDC PO (08:25)
[2021-01-26] MEDS: oxyCODONE HCl Cr 10 MG Tablet 20 MG PO ×2 (08:25→19:59)
[2021-01-26] MEDS: LINAGLIPTIN 5 MG TABLET PO (08:25)
[2021-01-26] MEDS: Sertraline 50 MG Tablet 25 MG PO (08:25)
[2021-01-26] MEDS: Multivitamins,Ther W-Minerals Tablet 1 TABLET PO (08:25)
[2021-01-26] MEDS: oxyCODONE 5 MG Tablet 10 MG PO (10:46)
[2021-01-26 10:55] LABS: Bedside Glucose 111 mg/dL (70-110)
--- NOTE | 2021-01-26 11:46 | NURSING ---
Dr. Hill stated he would be in [facility] to perform intraarticular steroid injection to left knee, N.O. 0.25% Marcaine, and 40mg kenalog.
[2021-01-26] MEDS: Bupivacaine 0.25% 30 ML Vial OPERA.SITE (13:27)
[2021-01-26] MEDS: Triamcinolone Acetonide 40 MG/ML Vial INTRAARTIC (13:27)
[2021-01-26 15:53] VITALS: BP 118/73; PULSE 91; RESP 18; TEMP 36.1; O2SAT 97
[2021-01-26 17:12] VITALS: PULSE 91
[2021-01-26 17:30] LABS: Bedside Glucose 89 mg/dL (70-110)
[2021-01-26 19:48] VITALS: PULSE 77; RESP 16
[2021-01-26] MEDS: Montelukast 10 MG Tablet PO (19:59)
[2021-01-26] MEDS: Latanoprost 0.005% 1 Bottle 1 DRP OPHTHALMIC (20:00)
[2021-01-26 21:21] LABS: Bedside Glucose 150 mg/dL (70-110)
[2021-01-27] MEDS: HYDROmorphone 2 MG TABLET 1 MG PO ×2 (00:29→17:34)
[2021-01-27] MEDS: Acetaminophen 500 MG Tablet 1000 MG PO ×2 (00:30→17:34)
[2021-01-27] MEDS: BRIMONIDINE 0.2% 5ML BOTTLE 1 DRP EACH EYE ×2 (06:10→17:40)
[2021-01-27] MEDS: Timolol 0.5% 5ML OPTH.BTL 1 DRP EACH EYE ×2 (06:10→17:37)
[2021-01-27 06:11] VITALS: BP 169/92; PULSE 60
[2021-01-27] MEDS: Pantoprazole Sodium 40 MG Tablet PO ×2 (06:11→17:32)
[2021-01-27] MEDS: Metoprolol Tartrate 50 MG Tablet PO ×2 (06:11→17:31)
[2021-01-27] MEDS: guaiFENesin 600 MG Tablet PO ×2 (06:11→17:31)
[2021-01-27] MEDS: Furosemide 40 MG Tablet PO (06:11)
[2021-01-27] MEDS: BACITRACIN 15 GM Tube 1 APPLIC TOPICAL ×2 (06:21→17:41)
[2021-01-27 06:26] VITALS: RESP 18; TEMP 36.9; O2SAT 99
[2021-01-27 06:46] LABS: Bedside Glucose 98 mg/dL (70-110)
[2021-01-27 07:45] VITALS: PULSE 60; RESP 18; O2SAT 100
[2021-01-27] MEDS: Budesonide Respules 0.5 MG/2 ML AMPUL.NEB. INHALATION ×2 (07:45→19:01)
[2021-01-27] MEDS: oxyCODONE HCl Cr 10 MG Tablet 20 MG PO ×2 (08:13→20:50)
[2021-01-27] MEDS: Potassium Chloride Oral Soln 20 MEQ/15 ML UDC PO (08:13)
[2021-01-27] MEDS: Sertraline 50 MG Tablet 25 MG PO (08:14)
[2021-01-27] MEDS: Multivitamins,Ther W-Minerals Tablet 1 TABLET PO (08:15)
[2021-01-27] MEDS: LINAGLIPTIN 5 MG TABLET PO (08:15)
[2021-01-27] MEDS: Loratadine 10 MG Tablet PO (08:15)
[2021-01-27] MEDS: Tamsulosin HCl 0.4 MG Capsule PO (08:15)
--- NOTE | 2021-01-27 09:49 | NURSING ---
THIS NURSE INTO ASK PT WHEN HIS WAS COMING IN FOR TRAINING ON WOUND. PT STATED MY HAS BEEN DOING IT FOR 6 YEARS AND DOES NOT NEED ANY TRAINING. PT STATED IF SHE DOES SHE WILL GET WITH WOUND CENTER CAUSE THATS WERE SHE LEARNED AND IF SHE NEEDS ANY WE WILL HAVE CHARISSA DE LA TORRE/WOUND NURSE DO IT WHILE RAY HERE. REPORTED TO WIL CARRINGTON,WOUND NURSE, JAZLYN AND JOÃO FROM THERAPY SO THERAPY CAN GET THERE TRAINING IN.
--- NOTE | 2021-01-27 10:51 | WOUNDNOTE ---
present in room. had been changing the dressing to the right leg for numerous years. This nurse did demonstrate dressing change with again. very pleased with the progress of the wound and feels she will be able to the change the dressing at home. denies questions or concerns. Pt tolerated the dressing change well. planned discharge date home is 01/30/21.
[2021-01-27] MEDS: oxyCODONE 5 MG Tablet 10 MG PO (11:18)
[2021-01-27 11:20] LABS: Bedside Glucose 137 mg/dL (70-110)
--- NOTE | 2021-01-27 11:45 | NURSING ---
CHARISSA DE LA TORRE/WOUND NURSE CHANGED PT DRESSING.
--- NOTE | 2021-01-27 13:30 | CASEMGMT ---
Social Work came in for therapy training. Spoke with about lifts to use at home. Pt and do not want raiza lift, they will pay out of pocket for Saralift. Provided her with rental and purchase pricing from [facility]. to contact [facility] to rent. Left message with [facility] to notify of rental. Plan is still to DC home Lidia Patel, INSTRUCTOR DANCING TONG SETTER
[2021-01-27 14:32] VITALS: BP 169/92; PULSE 60; RESP 18; TEMP 36.9; O2SAT 99
--- NOTE | 2021-01-27 15:49 | CASEMGMT ---
Social Work Faxed DC summary to [facility] to follow at home. Lidia Patel, RESIDENTIAL NURSE ALUMNI RELATIONS COORDINATOR
[2021-01-27 17:05] LABS: Bedside Glucose 105 mg/dL (70-110)
[2021-01-27 17:31] VITALS: BP 169/92; PULSE 60
[2021-01-27 19:01] VITALS: PULSE 66; RESP 18; O2SAT 96
[2021-01-27] MEDS: Latanoprost 0.005% 1 Bottle 1 DRP OPHTHALMIC (20:49)
[2021-01-27] MEDS: Montelukast 10 MG Tablet PO (20:50)
[2021-01-27 21:15] LABS: Bedside Glucose 144 mg/dL (70-110)
[2021-01-28] MEDS: HYDROmorphone 2 MG TABLET 1 MG PO ×3 (01:25→23:19)
[2021-01-28] MEDS: Acetaminophen 500 MG Tablet 1000 MG PO ×2 (01:26→14:02)
[2021-01-28] MEDS: BRIMONIDINE 0.2% 5ML BOTTLE 1 DRP EACH EYE ×2 (05:30→17:52)
[2021-01-28] MEDS: Timolol 0.5% 5ML OPTH.BTL 1 DRP EACH EYE ×2 (05:30→17:51)
[2021-01-28] MEDS: Pantoprazole Sodium 40 MG Tablet PO ×2 (05:31→17:54)
[2021-01-28] MEDS: BACITRACIN 15 GM Tube 1 APPLIC TOPICAL ×2 (05:31→17:50)
[2021-01-28] MEDS: guaiFENesin 600 MG Tablet PO ×2 (05:31→17:53)
[2021-01-28] MEDS: Furosemide 40 MG Tablet PO (05:31)
[2021-01-28 05:32] VITALS: PULSE 60
[2021-01-28] MEDS: Metoprolol Tartrate 50 MG Tablet PO ×2 (05:32→17:53)
[2021-01-28 06:26] LABS: Bedside Glucose 99 mg/dL (70-110)
[2021-01-28 07:08] VITALS: PULSE 64; RESP 16; O2SAT 98
[2021-01-28] MEDS: Budesonide Respules 0.5 MG/2 ML AMPUL.NEB. INHALATION ×2 (07:08→19:28)
[2021-01-28] MEDS: Loratadine 10 MG Tablet PO (08:16)
[2021-01-28] MEDS: Potassium Chloride Oral Soln 20 MEQ/15 ML UDC PO (08:16)
[2021-01-28] MEDS: LINAGLIPTIN 5 MG TABLET PO (08:17)
[2021-01-28] MEDS: Tamsulosin HCl 0.4 MG Capsule PO (08:17)
[2021-01-28] MEDS: Multivitamins,Ther W-Minerals Tablet 1 TABLET PO (08:17)
[2021-01-28] MEDS: oxyCODONE HCl Cr 10 MG Tablet 20 MG PO ×2 (08:17→20:12)
[2021-01-28] MEDS: Sertraline 50 MG Tablet 25 MG PO (08:17)
[2021-01-28] MEDS: Hydrocortisone 25 MG Suppository RC (09:58)
[2021-01-28] MEDS: oxyCODONE 5 MG Tablet 10 MG PO (10:29)
[2021-01-28 10:35] VITALS: PULSE 82; RESP 18; O2SAT 95
[2021-01-28 10:55] LABS: Bedside Glucose 144 mg/dL (70-110)
--- NOTE | 2021-01-28 13:34 | CASEMGMT ---
Social Work Received call from expressing frustration with not having [facility]. Referred [facility] to speak with to explain not being able to accept pt. requested further information on [facility]. Offered to have a rep contact the to get detailed information. Answered additional questions. Apologized for miscommunication and frustration. Offered to email or leave information on [employer] in pt's room. agreed to leave in pt's room. appreciated information and apology. Provided information to pt in room while he was in therapy. Lidia Patel, MILTON PERKINSW
[2021-01-28 14:47] VITALS: BP 124/78; PULSE 86; RESP 18; TEMP 36.2; O2SAT 98
[2021-01-28 16:31] LABS: Bedside Glucose 161 mg/dL (70-110)
[2021-01-28 17:53] VITALS: BP 124/78; PULSE 86
[2021-01-28 19:28] VITALS: PULSE 70; RESP 18; O2SAT 96
[2021-01-28] MEDS: Montelukast 10 MG Tablet PO (20:13)
[2021-01-28] MEDS: Pregabalin 25 MG Capsule PO (20:29)
[2021-01-28] MEDS: Latanoprost 0.005% 1 Bottle 1 DRP OPHTHALMIC (20:29)
[2021-01-28 21:20] LABS: Bedside Glucose 143 mg/dL (70-110)
[2021-01-29] MEDS: Timolol 0.5% 5ML OPTH.BTL 1 DRP EACH EYE ×2 (06:25→17:59)
[2021-01-29] MEDS: BRIMONIDINE 0.2% 5ML BOTTLE 1 DRP EACH EYE ×2 (06:25→17:59)
[2021-01-29] MEDS: BACITRACIN 15 GM Tube 1 APPLIC TOPICAL ×2 (06:26→17:57)
[2021-01-29 06:31] LABS: Bedside Glucose 90 mg/dL (70-110)
[2021-01-29 06:34] VITALS: BP 166/99; PULSE 68
[2021-01-29] MEDS: guaiFENesin 600 MG Tablet PO ×2 (06:34→17:54)
[2021-01-29] MEDS: Metoprolol Tartrate 50 MG Tablet PO ×2 (06:34→17:54)
[2021-01-29] MEDS: Pantoprazole Sodium 40 MG Tablet PO ×2 (06:34→17:54)
[2021-01-29] MEDS: Furosemide 40 MG Tablet PO (06:34)
[2021-01-29] MEDS: HYDROmorphone 2 MG TABLET 1 MG PO ×2 (06:35→17:55)
[2021-01-29 06:41] VITALS: BP 166/99; PULSE 68; RESP 18; TEMP 36.7; O2SAT 99
[2021-01-29] MEDS: Budesonide Respules 0.5 MG/2 ML AMPUL.NEB. INHALATION ×2 (07:20→19:02)
[2021-01-29] MEDS: Potassium Chloride Oral Soln 20 MEQ/15 ML UDC PO (08:22)
[2021-01-29] MEDS: Sertraline 50 MG Tablet 25 MG PO (08:24)
[2021-01-29] MEDS: LINAGLIPTIN 5 MG TABLET PO (08:25)
[2021-01-29] MEDS: Multivitamins,Ther W-Minerals Tablet 1 TABLET PO (08:26)
[2021-01-29] MEDS: Tamsulosin HCl 0.4 MG Capsule PO (08:26)
[2021-01-29] MEDS: oxyCODONE HCl Cr 10 MG Tablet 20 MG PO ×2 (08:27→20:13)
[2021-01-29] MEDS: Loratadine 10 MG Tablet PO (08:28)
[2021-01-29 10:40] LABS: Bedside Glucose 138 mg/dL (70-110)
[2021-01-29] MEDS: oxyCODONE 5 MG Tablet 10 MG PO ×2 (10:45→22:55)
[2021-01-29] MEDS: Ergocalciferol 1.25 MG (50, 000 UNIT) Capsule PO (11:57)
[2021-01-29 13:00] VITALS: BP 114/72; PULSE 90; RESP 18; TEMP 36.4; O2SAT 98
--- NOTE | 2021-01-29 13:36 | CASEMGMT ---
Social Work Followed up with pt today to ensure he received [facility] information and to answer any further questions/concerns. Pt did not have any and graciously expressed great appreciation for work, time and assistance throughout stay. Wished pt well. DC home 01/30. Lidia Patel, TIE BUCKER TELEGRAPH SERVICE RATER
--- NOTE | 2021-01-29 13:42 | CASEMGMT ---
Social Work BIMS and PHQ-9 completed for MDS assessment. Lidia Patel, BLINDSTITCH LINING FELLER MOLDING MACHINE OPERATOR HELPER
--- NOTE | 2021-01-29 14:21 | CASEMGMT ---
Addendum entered by Lidia Patel 01/29/21 15:50: Received call from - [employer] was delivering the DME and recommended a gel overlay for the hospital bed mattress. requesting that. SW agreed - will send [employer] updated order and that will be delivered to pt's home. appreciative. Order sent. Original Note: Social Work Received call from that she has not heard about a delivery time from [facility]. Contacted [employer] - they are delivering the hospital bed and trapeze to the home within 30 minutes. The BSC will be delivered to the pt's room by end of day. Updated . appreciative. Noted no other questions or questions. Lidia Patel, MILTON PERKINSW
--- NOTE | 2021-01-29 16:01 | NURSING ---
CHARISSA DE LA TORRE/WOUND NURSE CHANGED PT DRESSING TODAY.
[2021-01-29 16:15] LABS: Bedside Glucose 104 mg/dL (70-110)
[2021-01-29 17:54] VITALS: BP 114/72; PULSE 90
[2021-01-29] MEDS: Acetaminophen 500 MG Tablet 1000 MG PO (17:54)
[2021-01-29 19:02] VITALS: PULSE 84; RESP 18
[2021-01-29] MEDS: Pregabalin 25 MG Capsule PO (20:13)
[2021-01-29] MEDS: Latanoprost 0.005% 1 Bottle 1 DRP OPHTHALMIC (20:14)
[2021-01-29] MEDS: Montelukast 10 MG Tablet PO (20:14)
[2021-01-29 21:45] LABS: Bedside Glucose 142 mg/dL (70-110)
[2021-01-30 06:25] VITALS: PULSE 70; RESP 18; O2SAT 93
[2021-01-30 06:31] LABS: Bedside Glucose 93 mg/dL (70-110)
[2021-01-30] MEDS: Furosemide 40 MG Tablet PO (06:35)
[2021-01-30] MEDS: BRIMONIDINE 0.2% 5ML BOTTLE 1 DRP EACH EYE (06:35)
[2021-01-30] MEDS: guaiFENesin 600 MG Tablet PO (06:35)
[2021-01-30 06:36] VITALS: BP 128/77; PULSE 64
[2021-01-30] MEDS: Metoprolol Tartrate 50 MG Tablet PO (06:36)
[2021-01-30] MEDS: Pantoprazole Sodium 40 MG Tablet PO (06:36)
[2021-01-30] MEDS: Timolol 0.5% 5ML OPTH.BTL 1 DRP EACH EYE (06:38)
[2021-01-30] MEDS: BACITRACIN 15 GM Tube 1 APPLIC TOPICAL (06:38)
[2021-01-30] MEDS: Pregabalin 25 MG Capsule PO (06:50)
--- NOTE | 2021-01-30 06:54 | CPS ---
HOME CPAP OFF. PATIENT PLACED BACK ON 3 LPM
[2021-01-30] MEDS: Budesonide Respules 0.5 MG/2 ML AMPUL.NEB. INHALATION (06:55)
[2021-01-30] MEDS: Sertraline 50 MG Tablet 25 MG PO (08:32)
[2021-01-30] MEDS: Multivitamins,Ther W-Minerals Tablet 1 TABLET PO (08:32)
[2021-01-30] MEDS: oxyCODONE HCl Cr 10 MG Tablet 20 MG PO (08:32)
[2021-01-30] MEDS: Potassium Chloride Oral Soln 20 MEQ/15 ML UDC PO (08:33)
[2021-01-30] MEDS: Tamsulosin HCl 0.4 MG Capsule PO (08:33)
[2021-01-30] MEDS: LINAGLIPTIN 5 MG TABLET PO (08:33)
[2021-01-30] MEDS: Loratadine 10 MG Tablet PO (08:33)
--- NOTE | 2021-01-30 09:00 | PN_ITS ---
Subjective Subjective This 65-year-old male with multiple comorbidities was seen bedside for follow-up of right toe wounds and also he has a right leg ulcer that is very chronic. He denies fever, chill, nausea, vomiting, shortness of breath or chest pain. He does have chronic pain that includes his right leg wound. Objective Data Objective Data Vital Signs: Vital Signs Temp Pulse Resp BP Pulse Ox 97.5 F L 64 18 128/77 H 93 01/29/21 13:00 01/30/21 06:36 01/30/21 06:25 01/30/21 06:36 01/30/21 06:25 Oxygen Flow Rate (L/min) 3 Oxygen Delivery Method Nasal Cannula Weight: 115.383 kg Body Mass Index (BMI) 39.8 Intake & Output: Intake and Output for Last 24 Hours 01/28/21 01/29/21 01/30/21 23:59 23:59 23:59 Intake Total 1320 / 1320 1200 / 1200 Balance 1320 / 1320 1200 / 1200 Lab / Micro Data Result Diagrams: 01/25/21 05:10 01/25/21 05:10 Labs: Laboratory Results - last 24 hr 01/29/21 10:32: POC Glucose 138 H 01/29/21 16:10: POC Glucose 104 01/29/21 21:38: POC Glucose 142 H 01/30/21 06:21: POC Glucose 93 Micro: Microbiology 01/18/21 14:55 Nasal Secretion SARS-CoV-2 Antigen (Rapid) - Final 01/12/21 12:20 Nasal Secretion SARS-CoV-2 Antigen (Rapid) - Final 12/28/20 12:55 Wound - Leg, Left Gram Stain - Final 12/28/20 12:55 Wound - Leg, Left Wound Culture - Final Pseudomonas aeroginosa Klebsiella pneumoniae sp pneum Coag Negative Staph Physical Exam Const alert, oriented x3 and no apparent distress Extremity Extremity Narrative: Right ankle/leg is bandaged due to chronic right leg ulcer. There is serosanguineous drainage and granulation tissue exposed. There is no deep tissue necrosis or purulence or odor or erythema. There is some fragile epithelialized adjacent skin. There is no longer a small ulcer to the dorsal right second or first toes; these are healed. There is no interdigital m aceration. CFT < 2 seconds to all toes with normal temperature gradient noted bilateral foot. No evidence of ischemia to the foot right Assessment & Plan Assessment/Plan (1) Chronic ulcer of great toe of right foot with fat layer exposed: (2) Nail dystrophy: (3) Diabetes mellitus with diabetic polyneuropathy: (4) Type 2 diabetes mellitus with foot ulcer: PLAN: Evaluation performed. His toe wounds are healed and no dressings are required. He was reassured no local signs of infection are noted to the lower extremity. His right leg ulcer was cleansed with saline in a gentle manner and dressing with Aquacel Ag abdominal pad Kerlix was reapplied. He is scheduled to be discharged this afternoon was invited to follow-up with the [facility] in the future if he needs a local skip miner blasting. Otherwise, it is noted he does have a comprehensive wound provider at that he plans to return. Please call with questions. Loyda Duffy DPM, FAC[facility]
--- NOTE | 2021-01-30 09:48 | NURSING ---
Dr. Duffy in this morning and changed right ulcer wound dressing per pt report. Pt did not want this nurse to change dressing before d/c
[2021-01-30] MEDS: oxyCODONE 5 MG Tablet 10 MG PO (10:23)
[2021-01-30 10:26] VITALS: BP 131/72; PULSE 85; RESP 18; TEMP 36.5; O2SAT 99
== END 2021-01-30 11:15 | disposition home health service (06) | DRG 982 ==
PROVIDERS: Admitting Provider Family Medicine Geriatric Medicine; PCP Internal Medicine; Visit Provider Family Medicine Geriatric Medicine
DX: E11.622 Type 2 diabetes mellitus with other skin ulcer (principal); I13.0 Hypertensive heart and chronic kidney disease with heart failure and stage 1 through stage 4 chronic kidney disease, or unspecified chronic kidney disease; I27.82 Chronic pulmonary embolism; I50.32 Chronic diastolic (congestive) heart failure; L97.819 Non-pressure chronic ulcer of other part of right lower leg with unspecified severity; I71.01 Dissection of thoracic aorta; Z23 Encounter for immunization; J44.9 Chronic obstructive pulmonary disease, unspecified; K21.9 Gastro-esophageal reflux disease without esophagitis; N40.0 Benign prostatic hyperplasia without lower urinary tract symptoms; I27.20 Pulmonary hypertension, unspecified; G47.33 Obstructive sleep apnea (adult) (pediatric); E55.9 Vitamin D deficiency, unspecified; H40.9 Unspecified glaucoma; B35.4 Tinea corporis; N40.1 Benign prostatic hyperplasia with lower urinary tract symptoms; R33.8 Other retention of urine; L97.512 Non-pressure chronic ulcer of other part of right foot with fat layer exposed; E11.621 Type 2 diabetes mellitus with foot ulcer; E11.22 Type 2 diabetes mellitus with diabetic chronic kidney disease; E11.42 Type 2 diabetes mellitus with diabetic polyneuropathy; D50.9 Iron deficiency anemia, unspecified; M48.04 Spinal stenosis, thoracic region; F32.A Depression, unspecified; N18.31 Chronic kidney disease, stage 3a; I87.2 Venous insufficiency (chronic) (peripheral); L60.3 Nail dystrophy; R09.02 Hypoxemia; I27.21 Secondary pulmonary arterial hypertension; E78.5 Hyperlipidemia, unspecified; E66.01 Morbid (severe) obesity due to excess calories; L89.159 Pressure ulcer of sacral region, unspecified stage; M19.031 Primary osteoarthritis, right wrist; S62.113A Displaced fracture of triquetrum [cuneiform] bone, unspecified wrist, initial encounter for closed fracture; M17.12 Unilateral primary osteoarthritis, left knee; X58.XXXA Exposure to other specified factors, initial encounter; E87.6 Hypokalemia; Y93.9 Activity, unspecified; Y92.9 Unspecified place or not applicable; Y99.9 Unspecified external cause status; Z79.899 Other long term (current) drug therapy; Z68.39 Body mass index [BMI] 39.0-39.9, adult; Z87.891 Personal history of nicotine dependence; Z86.718 Personal history of other venous thrombosis and embolism
CPT/HCPCS: 0064A; 36415; 73110; 73562; 80048; 82962; 85025; 86480; 87070; 87077; 87184; 87186; 87205; 87426; 91301; 93005; 94640; 97110; 97162; 97166; 97530; 97535; 97802

== ENCOUNTER 2021-04-20 20:00 | Inpatient (IN) | payer MEDICARE, OTHER, SELFPAY ==
[2021-04-20] VITALS (14 sets, daily range): BP systolic 77–136; BP diastolic 52–106; PULSE 86–119; RESP 16–20; TEMP 34.3–35.9; O2SAT 93–100; BMI 49.7
--- NOTE | 2021-04-20 20:04 | EKG12_ITS ---
Test Reason : CPR Blood Pressure : / mmHG Vent. Rate : 104 BPM Atrial Rate : 104 BPM P-R Int : 218 ms QRS Dur : 082 ms QT Int : 342 ms P-R-T Axes : 002 -60 077 degrees QTc Int : 449 ms Sinus tachycardia with 1st degree A-V block Left axis deviation Septal infarct , age undetermined Inferior infarct , age undetermined Abnormal ECG When compared with ECG of 24-DEC-2020 08:10, Significant changes have occurred Confirmed by JANEL HOLDER, JJ ([id number]), city editor BERKLEY MCARTHUR ([id number]) on 04/22/2021 9:56:53 AM Referred By: ALEXIS Confirmed By:JJ ISLAS MD
[2021-04-20] MEDS: 0.9% Normal Saline 1,000 ML 999 ML IV ×3 (20:15→22:38)
--- NOTE | 2021-04-20 20:24 | EDS_ITS ---
HPI History of Present Illness Chief Complaint: CPR Detail of Chief Complaint: Cardiopulmonary arrest Informant: EMS Onset/Context/Timing Onset: Hours Context: Sudden Onset Timing: Continuous Quality: Patient found in PEA Location: Residents Current Severity: Severe Maximum Severity: Severe Worsened by: Nothing Relieved by: Algorithm for PEA Narrative Narrative: Patient is an elderly male with multiple medical problems who was seen 10 minutes prior to discovering that he was unresponsive. Upon EMS arrival he was in pulseless electrical activity. Algorithm for PEA was initiated. There was return of spontaneous circulation 10 minutes after CPR was initiated. Patient's pulse was lost in route. When he arrived he was noted to have a wide-complex tachycardia on the monitor. No pulses were noted. Patient received a dose of epinephrine in the department and 1 amp of bicarb. At the 2- minute check he had a strong palpable radial pulse. Prior similar symptoms: No Recent Illness/Hospitalization: Yes [facility] Medical History Acute respiratory failure with hypoxia and hypercapnia Anemia Arthritis aspiration of left knee Bilateral pulmonary infiltrates on CXR BPH (benign prostatic hyperplasia) Bradycardia Cardiology follow-up encounter Chronic cutaneous venous stasis ulcer Chronic diastolic (congestive) heart failure Chronic kidney disease, stage 3 Chronic pain Chronic respiratory failure Chronic venous insufficiency Chronic venous stasis dermatitis COPD (chronic obstructive pulmonary disease) Debility Decubitus ulcer Diabetes Disability of walking Essential (primary) hypertension Excoriation of multiple sites (~07/2020) Former smoker Generalized weakness GERD (gastroesophageal reflux disease) Glaucoma 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 History of CHF (congestive heart failure) History of edema History of GI bleed History of renal disease History of ulceration Hx of cataract Hyperlipidemia Hypertension Kidney stones Lip swelling Low testosterone in male Lower extremity weakness Morbid obesity MRSA (methicillin resistant Staphylococcus aureus) infection Non-healing ulcer of multiple sites, limited to breakdown of skin Normocytic anemia Obesity ADELAIDE (obstructive sleep apnea) Osteoarthritis Pressure ulcer Pseudomonas aeruginosa infection Secondary pulmonary arterial hypertension Shortness of breath Shortness of breath on exertion Sleep apnea Stage 2 moderate COPD by GOLD classification Thoracic aortic aneurysm without rupture Tobacco use Type 2 diabetes mellitus Ulcer of right lower extremity Wears glasses Home Medications brimonidine 0.2 % eye drops 1 drp OPHTHALMIC BID ml 05/04/18 [History Last Taken Unknown] dorzolamide 2 %-timolol 0.5 % (PF) eye drops 1 drp OPHTHALMIC BID 05/04/18 [History Last Taken Unknown] omeprazole 20 mg capsule,delayed release 20 mg PO DAILY 05/04/18 [History Last Taken Unknown] tamsulosin 0.4 mg capsule 0.4 mg PO DAILY@0800 05/30/18 [History Last Taken Unknown] latanoprost 0.005 % eye drops 1 drp OPHTHALMIC QPM 09/06/18 [History Last Taken Unknown] oxygen MISCELLANEOUS 12/06/18 [History Last Taken Unknown] cholecalciferol (vitamin D3) 1,250 mcg (50,000 unit) tablet 50,000 unit PO QWEEK #10 tab 02/04/19 [Rx Last Taken Unknown] Lift Chair #1 ea 07/03/20 [Rx Last Taken Unknown] furosemide 40 mg tablet 40 mg PO BID #180 tab 08/07/20 [Rx Last Taken Unknown] L.acid,casei,plant,saliv-B.ani [Probiotic Formula] 1 cap PO BID 12/20/20 [History Last Taken Unknown] albuterol sulfate 2.5 mg INHALATION Q6H PRN PRN 12/20/20 [History Last Taken Unknown] budesonide 0.5 mg INHALATION BID 12/20/20 [History Last Taken Unknown] diphenhydramine HCl 25 mg PO Q4H PRN 12/20/20 [History Last Taken Unknown] docusate sodium 100 mg PO BID 12/20/20 [History Last Taken Unknown] ferrous sulfate 325 mg PO TIDCM 12/20/20 [History Last Taken Unknown] fluticasone propion-salmeterol [Wixela Inhub] 1 inh INHALATION BID 12/20/20 [History Last Taken Unknown] guaifenesin 600 mg PO BID 12/20/20 [History Last Taken Unknown] linagliptin [Tradjenta] 5 mg PO DAILY@0800 12/20/20 [History Last Taken Unknown] loratadine 10 mg PO DAILY@0800 12/20/20 [History Last Taken Unknown] montelukast 10 mg PO QHS 12/20/20 [History Last Taken Unknown] multivitamin,kg-omzx-Tf-FA-min [Multivitamin And Mineral] 1 tab PO DAILY@0800 12/20/20 [History Last Taken Unknown] pantoprazole [Protonix] 40 mg PO BID 12/20/20 [History Last Taken Unknown] pramoxine-mineral oil-zinc [Anusol] 1 ea TOPICAL TID PRN PRN 12/20/20 [History Last Taken Unknown] pregabalin 50 mg PO 0600,2100 12/20/20 [History Last Taken Unknown] sertraline 25 mg PO DAILY@0800 12/20/20 [History Last Taken Unknown] tiotropium bromide [Spiriva Respimat] 2 puff INHALATION DAILY 12/20/20 [History Last Taken Unknown] bacitracin zinc 1 applic TOPICAL BID #0 g 01/21/21 [Rx Last Taken Unknown] hydrocortisone acetate [Anucort-HC] 25 mg AK DAILY PRN PRN 30 Days #30 ea 01/21/21 [Rx Last Taken Unknown] hydromorphone 1 mg PO Q6H PRN PRN 3 Days #12 tab 01/21/21 [Rx Last Taken Unknown] nystatin [Nyamyc] 1 applic TOPICAL BID #0 g 01/21/21 [Rx Last Taken Unknown] potassium chloride 20 meq PO DAILYCM 30 Days #450 ml 01/21/21 [Rx Last Taken Unknown] timolol maleate 1 drp EACH EYE BID #15 ml 01/21/21 [Rx Last Taken Unknown] white petrolatum [Aquaphor Healing] 1 applic TOPICAL DAILY PRN PRN #0 g 01/21/21 [Rx Last Taken Unknown] metoprolol tartrate 50 mg tablet 75 mg PO BID #90 tab 03/09/21 [Rx Last Taken Unknown] oxycodone-acetaminophen 5 mg-325 mg tablet 1 tab PO Q6H PRN 7 Days #28 tab 04/14/21 [Rx Last Taken Unknown] Allergy/AdvReac Type Severity Reaction Status Date / Time lisinopril Allergy Severe Angioedema Verified 04/20/21 20:14 Sulfa (Sulfonamide AdvReac Other Verified 04/20/21 20:14 Antibiotics) chapstick Allergy swelling Uncoded 04/20/21 20:14 Family History Father Cancer Mother Asthma Surgical History History of carpal tunnel surgery of right wrist History of cataract extraction Social History household members: spouse Smoking Status: Former smoker second hand exposure: No alcohol intake: current alcohol intake frequency: a few times a week substance use type: does not use caffeine: No what type of physical activity do you participate in: none ROS ROS ED Review of Systems ROS Unobtainable: other Details: Status post cardiopulmonary arrest GCS 3 T EXAM Physical Exam Const Vital Signs: 04/20/21 20:01 04/20/21 20:15 04/20/21 20:16 Temperature 96.6 F L Temperature Source Temporal Pulse Rate 106 H Pulse Rate [2] 119 H Respiratory Rate 16 16 Respiratory Pattern Normal Blood Pressure Blood Pressure Mean Pulse Ox 93 Oxygen Delivery Method Ambu-Bag Mechanical Ventilator Fraction of Inspired Oxygen (FIO2) 100 04/20/21 20:18 04/20/21 20:29 04/20/21 20:45 Temperature 96.6 F L Temperature Source Temporal Pulse Rate 103 H 103 H Pulse Rate [2] Respiratory Rate 20 H 17 Respiratory Pattern Blood Pressure 90/67 84/64 L Blood Pressure Mean 74 70 Pulse Ox 100 100 Oxygen Delivery Method Mechanical Ventilator Mechanical Ventilator Fraction of Inspired Oxygen (FIO2) 04/20/21 21:16 04/20/21 21:30 Temperature Temperature Source Pulse Rate 101 H 96 Pulse Rate [2] Respiratory Rate 16 16 Respiratory Pattern Blood Pressure 80/61 L 93/72 Blood Pressure Mean 67 79 Pulse Ox 99 100 Oxygen Delivery Method Mechanical Ventilator Mechanical Ventilator Fraction of Inspired Oxygen (FIO2) 100 Positive well nourished, well developed and obese General Appearance ED: well developed Nutritional Appearance: obese HEENT normocephalic, atraumatic and cyanosis of lips/distal nose Eyes Negative for PERRL or EOMs intact bilaterally Eyes Narrative: Pupils are dilated and question reactivity General Eye ED: Yes pale conjunctiva; Negative for scleral icterus Neck no lymphadenopathy and supple Neck Narrative: Trachea midline. There is no inspiratory expiratory stridor. Resp Resp Narrative: Breath sounds noted with bag valve ventilation. I gel was removed because of significant leak and inadequate ventilation. Cardio regular rhythm and no murmurs Palpation: normal PMI Rate: tachycardic GI non-tender and non-distended Palpation: soft Narrative: Indwelling Prieto upon arrival Neuro No oriented x3 Neuro Narrative: GCS 3 T Sensorium / Orientation: Negative for alert Psych Negative for mental status grossly normal Skin Skin Narrative: Tinea infection groin Rashes: no rashes MDM MDM MDM Narrative Medical decision making narrative: Since patient was successfully resuscitated and patient had PEA need to evaluate for hypovolemia, pulmonary embolus, profound acidosis doubt pericardial tamponade or tension pneumothorax. Repeat potassium was ordered after patient's respiratory status was corrected. Believe the hyperkalemia was due to the acidosis with a pH of 7.1. Because patient is hypotensive lactic acidosis and concern for pneumonia a left subclavian line was placed. If patient requires pressors will start Levophed. Lab Data Labs: Laboratory Results - last 24 hr 04/20/21 04/20/21 04/20/21 20:10 20:18 20:18 WBC 15.1 H RBC 3.91 L Hgb 10.1 L Hct 34.1 L MCV 87.2 MCH 25.8 L MCHC 29.6 L RDW Std Deviation 59.7 H RDW Coeff of Johanna 18.7 H Plt Count 189 MPV 10.0 Immature Gran % (Auto) [employer] Neut % (Auto) [employer] Lymph % (Auto) [employer] [place] % (Auto) [employer] Eos % (Auto) [employer] Baso % (Auto) [employer] Absolute Neuts (auto) 12.9 H Absolute Lymphs (auto) 1.51 Total Counted 100 Neutrophils % (Manual) 82 H Band Neutrophils % 3 Lymphocytes % (Manual) 10 L Metamyelocytes % 4 H Myelocytes % 1 H Nucleated RBC % [employer] Nucleated RBCs/100 WBC 4 Diff Path Review May foll Platelet Estimate ADEQUATE RBC Morphology N CHROM Anisocytosis RARE PT 18.5 H INR 1.6 APTT 41.1 H Sodium Potassium Chloride Carbon Dioxide Anion Gap BUN Creatinine Estim Creat Clear Calc Est GFR (MDRD) Af Amer Est GFR (MDRD) Non-Af BUN/Creatinine Ratio Glucose Lactic Acid Calcium Total Bilirubin AST ALT Alkaline Phosphatase Troponin I High Sens Total Protein Albumin Globulin Albumin/Globulin Ratio POC Glucose 172 H 04/20/21 04/20/21 20:18 20:18 WBC RBC Hgb Hct MCV MCH MCHC RDW Std Deviation RDW Coeff of Johanna Plt Count MPV Immature Gran % (Auto) Neut % (Auto) Lymph % (Auto) [place] % (Auto) Eos % (Auto) Baso % (Auto) Absolute Neuts (auto) Absolute Lymphs (auto) Total Counted Neutrophils % (Manual) Band Neutrophils % Lymphocytes % (Manual) Metamyelocytes % Myelocytes % Nucleated RBC % Nucleated RBCs/100 WBC Diff Path Review Platelet Estimate RBC Morphology Anisocytosis PT INR APTT Sodium 136 Potassium 6.0 H* Chloride 99 Carbon Dioxide 28.0 Anion Gap 9 BUN 62 H Creatinine 2.51 H Estim Creat Clear Calc 26.70 Est GFR (MDRD) Af Amer 33 L Est GFR (MDRD) Non-Af 27 L BUN/Creatinine Ratio 24.7 H Glucose 227 H Lactic Acid 9.1 H* Calcium 8.8 Total Bilirubin 0.40 AST 269 H ALT 480 H Alkaline Phosphatase 115 Troponin I High Sens 14 Total Protein 7.0 Albumin 2.4 L Globulin 4.6 H Albumin/Globulin Ratio 0.5 L POC Glucose ABG Data ABG results: ABG 04/20/21 20:30 Specimen Type ART Sample Site R Radial pH 7.15 L* Bicarbonate Actual 27.3 H Total CO2 30 Base Excess -2 O2 Saturation 100 H O2 % 100 ABG pCO2 77.9 H* ABG pO2 220 H Frederick Test N/A Respiration Rate 16 O2 Delivery Device Adult Vent Vent Mode AC Tidal Volume 500 POC PEEP 5 Crit Call To/Read Back Yes Blood Gas Notified Whom Dr. Valladares Radiography Chest X-Ray - ED: 1 View (X-ray reveals infiltrate right lower lobe. There might be slight cephalization. Borderline cardiomegaly. Endotracheal tube is in proper position. Orogastric tube is in proper position.) Diagnostic Testing: Clinical Impression(s) from Imaging Studies Chest X-Ray 04/20/21 20:51 IMPRESSION: Endotracheal tube tip is in the midthoracic trachea. Enteric tube is within the stomach. Findings suggest CHF/pulmonary edema. Superimposed pneumonia should be excluded clinically. Electronically Signed: Boubacar Finn MD at 21:38 EST , EKG Initial EKG: Interpretation: Sinus Tachycardia (Ventricular rate is 104. AK interval is prolonged at 218 and consistent with first-degree AV block. QRS duration 82 ms. QT duration 342 ms. Maurice to the left. Decreased anterior force. Low voltage.) Procedures Intubations Intubation Method: orotracheal Intubation Verification: Positive color change and Bilateral breath sounds confirmed Intubation Complications: no complications Other Procedures Procedure(s): Verbal consent was obtained from for right subclavian line. This was placed because of his hypotension not responding to fluids. Rest benefits were explained. Patient was prepped draped sterile manner. Everyone in the room was wearing mask and hair cover. The area was cleansed using ChloraPrep from the kit. The area was anesthetized with 1% lidocaine. On the initial stick the artery was cannulated. The needle with was drawn. On second attempt on the way in the left subclavian vessel was cannulated. Using Seldinger technique a 7.5 Irish triple-lumen was placed. Blood was aspirated from all 3 ports. X-ray was obtained to confirm placement and rule out pneumothorax. Critical Care Time Critical Care Time: Yes Critical care time (excluding procedures): 30-74 minutes (42 minutes) and Including time spent: (History from paramedics, physical exam, review of prior records, documentation,) Discharge Plan Dx/Rx/DC Orders Clinical Impression: Cardiopulmonary arrest with successful resuscitation, Right lower lobe pulmonary infiltrate, Acute respiratory failure with hypoxia and hypercapnia, Acute hypotension, Acidosis, lactic, Acute hyperkalemia, HASMUKH (acute kidney injury), Shock Disposition Disposition: Acute Care [facility]
[2021-04-20 20:29] LABS: Hematocrit 34.1 % (40-54); Hemoglobin 10.1 g/dL (13.0-16.5); Mean Corp Hgb Conc 29.6 g/dL (32-36); Mean Corpuscular Hgb 25.8 pg (27.0-32.0); Mean Corpuscular Volume 87.2 fL (80-94); POSITIVE COUNT YES; POSITIVE MORPHOLOGY YES; Platelet Count 189 K/mm3 (150-450); RBC Distribution Width CV 18.7 % (11.6-14.6); RBC Distribution Width SD 59.7 fl (35.1-43.9); Red Blood Count 3.91 M/mm3 (4.6-6.2); White Blood Count 15.1 K/mm3 (4.4-11.0)
--- NOTE | 2021-04-20 20:35 | CM.ED ---
DEVIN Note Referral Source: Case Find Referral Reason: [facility] SW responded to code blue. No family present. SW remains available. Merle PAGAN
[2021-04-20 20:36] LABS: Base Excess -2 mmol/L (-2 to +2); Bicarbonate 27.3 mmol/L (22-26); Blood Gas Specimen Type ART; FI02 100; Mode AC; O2 Delivery Device Adult Vent; PEEP 5; PO2 220 mmHG (75-100); RR 16; SITE R Radial; SO2 100 % (95-99); Total Carbon Dioxide 30 mmol/L; Vt 500; pCO2 77.9 mmHg (35-45); pH 7.15 (7.35-7.45)
--- NOTE | 2021-04-20 20:36 | ED.RN ---
REMOVED SOFT WRIST RESTRAINTS, PT WITH NO MOVEMENT.
[2021-04-20 20:45] LABS: International Normalized Ratio 1.6; Prothrombin Time (Protime)PT. 18.5 SECONDS (11.7-14.9)
[2021-04-20 20:46] LABS: Partial Thromboplast Time 41.1 Seconds (24.1-36.2)
[2021-04-20 20:51] LABS: ALB/GLOB Ratio 0.5 RATIO (0.9-2.4); AST(SGOT) 269 U/L (15-37); Alanine Aminotransfer ALT/SGPT 480 U/L (16-61); Albumin, Serum 2.4 g/dL (3.2-5.0); Alkaline Phosphatase 115 U/L (45-117); Anion Gap 9 (5-15); BUN 62 mg/dL (7-18); BUN/Creat Ratio 24.7 RATIO (10-20); Calcium,Total 8.8 mg/dL (8.5-10.1); Chloride 99 mmol/L (98-107); Creatinine, Serum 2.51 mg/dL (0.70-1.30); EST Glomerular Filtration Rate 27 mL/min (>60); Est Glom Filt Rate - Afr Amer 33 mL/min (>60); Globulin 4.6 g/dL (2.2-4.2); Glucose 227 mg/dL (74-106); Sodium Level 136 mmol/L (136-145); Troponin-I HS 14 pg/mL (3.0-78.0)
--- NOTE | 2021-04-20 20:51 | RAD_ITS ---
STUDY: X-RAY CHEST REASON FOR EXAM: Male, 66 years old. Intubation, respiratory failure TECHNIQUE: Single frontal view of the chest. COMPARISON: 10/24/2020. FINDINGS: Endotracheal tube tip is in the midthoracic trachea. Enteric tube is within the stomach. Patchy bibasilar opacities There is no demonstrated pleural abnormality. There is moderate cardiac enlargement. Limited evaluation of the mediastinum and ekta. Normal visualized pulmonary arteries. Normal visualized aortic arch and descending thoracic aorta. Normal visualized thoracic spine. Normal visualized ribs, clavicles, and shoulders. There is no demonstrated abnormality of the visualized soft tissue structures of the upper abdomen. RAD/Chest 1 View (Portable) IMPRESSION: Endotracheal tube tip is in the midthoracic trachea. Enteric tube is within the stomach. Findings suggest CHF/pulmonary edema. Superimposed pneumonia should be excluded clinically. Electronically Signed: Boubacar Finn MD at 21:38 EST ,
[2021-04-20 20:56] LABS: Bedside Glucose 172 mg/dL (70-110)
[2021-04-20] MEDS: 0.9% Normal Saline 1,000 ML 1000 ML IV (21:06)
[2021-04-20 21:09] LABS: Differential Indicated MANUAL DIFF
[2021-04-20 21:13] LABS: Neutrophil-Band 3 % (0-5); Neutrophil-Segmented 82 % (47-70); Total Cells Counted 100 (MANUAL DIFF)
[2021-04-20 21:14] LABS: Lymphocyte 10 % (19-41); Metamyelocyte 4 % (0-1); Myelocyte 1 % (0-0); Nucleated Red Bld Cells,Manual 4 % (0-5)
--- NOTE | 2021-04-20 21:15 | ED.RN ---
HOLD OFF ON CTA AT THIS TIME PER DR OCHOA, CT NOTIFED
[2021-04-20 21:20] LABS: Absolute Lymphocyte Count 1.51 X10^3/uL (0.83-4.51); Absolute Neutrophil Count 12.9 X10^3/uL (2.0-7.7)
[2021-04-20 21:21] LABS: Anisocytosis RARE; Platelet Estimate ADEQUATE (ADEQ); Red Cell Morphology N CHROM NORMAL (NORM C&C)
--- NOTE | 2021-04-20 21:23 | PCM.HP.STD ---
HPI - General General Date of Admission: 04/20/21 Date of Service: 04/20/21 Chief Complaint: Unresponsive, cardiopulmonary arrest HPI Narrative The patient is a 66 y/o M w/ PMHx: Morbid Obesity, Chronic anemia/Fe deficiency anemia, HTN, HLD, BPH, CKD stage III unclear subtype, Chronic COPD with history of tobacco use, Diabetes mellitus type II, Chronic BL LE, scrotal and decubitous ulcers following with home health/wound care, ADELAIDE, Hx DVT/PE s/p prior IVCF placement, Hx SVT, Chronic lumbar stenosis with BL LE weakness/chronic pain/near bedbound status who presents to the [facility] ED on 04/20/21 with history of fluctuating heart rate as well as oxygen needs over the day with unresponsive episode prompting to call EMS with arrival potentially 10 to 15 minutes following with no pulse or breathing with administration of Narcan given chronic pain regimen with no improvement with CPR x2 rounds with eventual PEA with ROSC on route however patient again coded upon ED arrival with epinephrine as well as bicarb of ministration and continued CPR with ROSC return with intubation successfully. Patient family denies any recent significant cough, fevers or chills. Patient wounds are well appearing and have been healing. Work-up in the ED included initially T 96.6, heart rate 106, BP 90/67, respiratory rate 16, 93% on 100% FiO2 however patient did have decreases in his blood pressure and norepinephrine was on standby with IV fluid boluses administered, CBC with WC 15.1, hemoglobin 10.1, platelet 199 with left shift, coags with PT 18.5, INR 1.6, PTT 41.1, ABG with pH 7.15, bicarb 27.3, O2 sat 100%, PCO2 77.9, PO2 220 obtained following intubation/vent status, CMP with potassium 6.0 however repeat pending per ED physician, BUN/creatinine 62/2.51, glucose 227, lactic acid 9.1, AST/ALT 269/480, chest x-ray with questionable pulmonary edema with possible superimposed pneumonia. In the ED patient ministered 30 cc/kg bolus, Rocephin, azithromycin and norepinephrine on standby. Patient hyperkalemia not treated in the ED given patient correction of respiratory distress with repeat potassium pending upon admission to the ICU. [facility] Medical History Acute respiratory failure with hypoxia and hypercapnia Anemia Arthritis aspiration of left knee Bilateral pulmonary infiltrates on CXR BPH (benign prostatic hyperplasia) Bradycardia Cardiology follow-up encounter Chronic cutaneous venous stasis ulcer Chronic diastolic (congestive) heart failure Chronic kidney disease, stage 3 Chronic pain Chronic respiratory failure Chronic venous insufficiency Chronic venous stasis dermatitis COPD (chronic obstructive pulmonary disease) Debility Decubitus ulcer Diabetes Disability of walking Essential (primary) hypertension Excoriation of multiple sites (~07/2020) Former smoker Generalized weakness GERD (gastroesophageal reflux disease) Glaucoma 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 History of CHF (congestive heart failure) History of edema History of GI bleed History of renal disease History of ulceration Hx of cataract Hyperlipidemia Hypertension Kidney stones Lip swelling Low testosterone in male Lower extremity weakness Morbid obesity MRSA (methicillin resistant Staphylococcus aureus) infection Non-healing ulcer of multiple sites, limited to breakdown of skin Normocytic anemia Obesity ADELAIDE (obstructive sleep apnea) Osteoarthritis Pressure ulcer Pseudomonas aeruginosa infection Secondary pulmonary arterial hypertension Shortness of breath Shortness of breath on exertion Sleep apnea Stage 2 moderate COPD by GOLD classification Thoracic aortic aneurysm without rupture Tobacco use Type 2 diabetes mellitus Ulcer of right lower extremity Wears glasses Home Medications brimonidine 0.2 % eye drops 1 drp OPHTHALMIC BID ml 05/04/18 [History Last Taken Unknown] dorzolamide 2 %-timolol 0.5 % (PF) eye drops 1 drp OPHTHALMIC BID 05/04/18 [History Last Taken Unknown] omeprazole 20 mg capsule,delayed release 20 mg PO DAILY 05/04/18 [History Last Taken Unknown] tamsulosin 0.4 mg capsule 0.4 mg PO DAILY@0800 05/30/18 [History Last Taken Unknown] latanoprost 0.005 % eye drops 1 drp OPHTHALMIC QPM 09/06/18 [History Last Taken Unknown] oxygen MISCELLANEOUS 12/06/18 [History Last Taken Unknown] cholecalciferol (vitamin D3) 1,250 mcg (50,000 unit) tablet 50,000 unit PO QWEEK #10 tab 02/04/19 [Rx Last Taken Unknown] Lift Chair #1 ea 07/03/20 [Rx Last Taken Unknown] furosemide 40 mg tablet 40 mg PO BID #180 tab 08/07/20 [Rx Last Taken Unknown] L.acid,casei,plant,saliv-B.ani [Probiotic Formula] 1 cap PO BID 12/20/20 [History Last Taken Unknown] albuterol sulfate 2.5 mg INHALATION Q6H PRN PRN 12/20/20 [History Last Taken Unknown] budesonide 0.5 mg INHALATION BID 12/20/20 [History Last Taken Unknown] diphenhydramine HCl 25 mg PO Q4H PRN 12/20/20 [History Last Taken Unknown] docusate sodium 100 mg PO BID 12/20/20 [History Last Taken Unknown] ferrous sulfate 325 mg PO TIDCM 12/20/20 [History Last Taken Unknown] fluticasone propion-salmeterol [Wixela Inhub] 1 inh INHALATION BID 12/20/20 [History Last Taken Unknown] guaifenesin 600 mg PO BID 12/20/20 [History Last Taken Unknown] linagliptin [Tradjenta] 5 mg PO DAILY@0800 12/20/20 [History Last Taken Unknown] loratadine 10 mg PO DAILY@0800 12/20/20 [History Last Taken Unknown] montelukast 10 mg PO QHS 12/20/20 [History Last Taken Unknown] multivitamin,pl-nzjp-Un-FA-min [Multivitamin And Mineral] 1 tab PO DAILY@0800 12/20/20 [History Last Taken Unknown] pantoprazole [Protonix] 40 mg PO BID 12/20/20 [History Last Taken Unknown] pramoxine-mineral oil-zinc [Anusol] 1 ea TOPICAL TID PRN PRN 12/20/20 [History Last Taken Unknown] pregabalin 50 mg PO 0600,2100 12/20/20 [History Last Taken Unknown] sertraline 25 mg PO DAILY@0800 12/20/20 [History Last Taken Unknown] tiotropium bromide [Spiriva Respimat] 2 puff INHALATION DAILY 12/20/20 [History Last Taken Unknown] bacitracin zinc 1 applic TOPICAL BID #0 g 01/21/21 [Rx Last Taken Unknown] hydrocortisone acetate [Anucort-HC] 25 mg MA DAILY PRN PRN 30 Days #30 ea 01/21/21 [Rx Last Taken Unknown] hydromorphone 1 mg PO Q6H PRN PRN 3 Days #12 tab 01/21/21 [Rx Last Taken Unknown] nystatin [Nyamyc] 1 applic TOPICAL BID #0 g 01/21/21 [Rx Last Taken Unknown] potassium chloride 20 meq PO DAILYCM 30 Days #450 ml 01/21/21 [Rx Last Taken Unknown] timolol maleate 1 drp EACH EYE BID #15 ml 01/21/21 [Rx Last Taken Unknown] white petrolatum [Aquaphor Healing] 1 applic TOPICAL DAILY PRN PRN #0 g 01/21/21 [Rx Last Taken Unknown] metoprolol tartrate 50 mg tablet 75 mg PO BID #90 tab 03/09/21 [Rx Last Taken Unknown] oxycodone-acetaminophen 5 mg-325 mg tablet 1 tab PO Q6H PRN 7 Days #28 tab 04/14/21 [Rx Last Taken Unknown] Allergy/AdvReac Type Severity Reaction Status Date / Time lisinopril Allergy Severe Angioedema Verified 04/20/21 20:14 Sulfa (Sulfonamide AdvReac Other Verified 04/20/21 20:14 Antibiotics) chapstick Allergy swelling Uncoded 04/20/21 20:14 Family History Father Cancer Mother Asthma Surgical History History of carpal tunnel surgery of right wrist History of cataract extraction Social History household members: spouse Smoking Status: Former smoker second hand exposure: No alcohol intake: current alcohol intake frequency: a few times a week substance use type: does not use caffeine: No what type of physical activity do you participate in: none ROS Review of Systems ROS Unobtainable: due to encephalopathy and due to endotracheal tube Vital Signs Vital Signs Vital Signs: 04/20/21 20:01 04/20/21 20:15 04/20/21 20:16 Temperature 96.6 F L Temperature Source Temporal Pulse Rate 106 H Pulse Rate [2] 119 H Respiratory Rate 16 16 Respiratory Pattern Normal Blood Pressure Blood Pressure Mean Pulse Ox 93 Oxygen Delivery Method Ambu-Bag Mechanical Ventilator Fraction of Inspired Oxygen (FIO2) 100 04/20/21 20:18 04/20/21 20:29 04/20/21 20:45 Temperature 96.6 F L Temperature Source Temporal Pulse Rate 103 H 103 H Pulse Rate [2] Respiratory Rate 20 H 17 Respiratory Pattern Blood Pressure 90/67 84/64 L Blood Pressure Mean 74 70 Pulse Ox 100 100 Oxygen Delivery Method Mechanical Ventilator Mechanical Ventilator Fraction of Inspired Oxygen (FIO2) 04/20/21 21:16 Temperature Temperature Source Pulse Rate 101 H Pulse Rate [2] Respiratory Rate 16 Respiratory Pattern Blood Pressure 80/61 L Blood Pressure Mean 67 Pulse Ox 99 Oxygen Delivery Method Mechanical Ventilator Fraction of Inspired Oxygen (FIO2) Weight Weight: 317 lb 7.45 oz Body Mass Index (BMI) 49.7 Physical Exam Narrative Physical Examination: General: Patient not awake, not alert, intubated but requiring no sedation and not breathing over the vent, bilaterally fixed and dilated pupils, no corneal reflex. Skin: Normal color, normal turgor, no icterus, no cyanosis except for notable bilateral lower extremity pedal/ankle, right greater than left as well as scrotal and decubitus ulcers, well-appearing, notable intertrigo noted. HEENT: AT/NC, EOM unable to be assessed given intubated status, pupils bilaterally fixed and dilated, dry MM, no carotid bruits or JVD noted. Lungs: Bilaterally diminished, greater bases, intubated, symmetric rise, mild rales at bases, no wheezing or rhonchi. Heart: Regular rate and rhythm; no gallop, rub audible. Abdomen: Soft, morbidly obese, no grimacing with palpation, no obvious distention, distant bowel sounds, no obvious HSM. Extremities: No cyanosis, clubbing, or edema. See skin. Neurological: Patient not awake, not alert, intubated but requiring no sedation and not breathing over the vent, bilaterally fixed and dilated pupils, no corneal reflex, cognitive function not baseline intact; pupils fixed and dilated, unable to assess cranial nerves, not moving to any stimuli, equivocal Babinski. Psychiatric: Affect appears flat, no acute evidence of depressive or anxiety feelings. Results Lab / Micro Data Result Diagrams: 04/20/21 20:18 04/20/21 20:18 Labs: Laboratory Results - last 24 hr 04/20/21 20:10: POC Glucose 172 H 04/20/21 20:18: WBC 15.1 H, RBC 3.91 L, Hgb 10.1 L, Hct 34.1 L, MCV 87.2, MCH 25.8 L, MCHC 29.6 L, RDW Std Deviation 59.7 H, RDW Coeff of Johanna 18.7 H, Plt Count 189, MPV 10.0, Immature Gran % (Auto) ADJUNCT [employer]ILOSOPHY FACULTY, Neut % (Auto) ADJUNCT PHILOSOPHY FACULTY, Lymph % (Auto) ADJUNCT PHILOSOPHY FACULTY, Cecil % (Auto) ADJUNCT PHILOSOPHY FACULTY, Eos % (Auto) ADJUNCT PHILOSOPHY FACULTY, Baso % (Auto) ADJUNCT PHILOSOPHY FACULTY, Absolute Neuts (auto) 12.9 H, Absolute Lymphs (auto) 1.51, Total Counted 100, Neutrophils % (Manual) 82 H, Band Neutrophils % 3, Lymphocytes % (Manual) 10 L, Metamyelocytes % 4 H, Myelocytes % 1 H, Nucleated RBC % [employer]JUNCT [employer]ILOSOPHY FACULTY, Nucleated RBCs/100 WBC 4, Diff Path Review July, Platelet Estimate ADEQUATE, RBC Morphology N CHROM, Anisocytosis RARE 04/20/21 20:18: PT 18.5 H, INR 1.6, APTT 41.1 H 04/20/21 20:18: Sodium 136, Potassium 6.0 H*, Chloride 99, Carbon Dioxide 28.0, Anion Gap 9, BUN 62 H, Creatinine 2.51 H, Estim Creat Clear Calc 26.70, Est GFR (MDRD) Af Amer 33 L, Est GFR (MDRD) Non-Af 27 L, BUN/Creatinine Ratio 24.7 H, Glucose 227 H, Calcium 8.8, Total Bilirubin 0.40, AST 269 H, ALT 480 H, Alkaline Phosphatase 115, Troponin I High Sens 14, Total Protein 7.0, Albumin 2.4 L, Globulin 4.6 H, Albumin/Globulin Ratio 0.5 L ABG Data ABG results: ABG 04/20/21 20:30 Specimen Type ART Sample Site R Radial pH 7.15 L* Bicarbonate Actual 27.3 H Total CO2 30 Base Excess -2 O2 Saturation 100 H O2 % 100 ABG pCO2 77.9 H* ABG pO2 220 H Frederick Test N/A Respiration Rate 16 O2 Delivery Device Adult Vent Vent Mode AC Tidal Volume 500 POC PEEP 5 Crit Call To/Read Back Yes Blood Gas Notified Whom Dr. Valladares Assessment & Plan Assessment/Plan (1) Cardiopulmonary arrest with successful resuscitation: PLAN: The patient is a 66 y/o M w/ PMHx: Morbid Obesity, Chronic anemia/Fe deficiency anemia, HTN, HLD, BPH, CKD stage III unclear subtype, Chronic COPD with history of tobacco use, Diabetes mellitus type II, Chronic Diastolic CHF, Chronic BL LE, scrotal and decubitous ulcers following with home health/wound care, [place], Hx DVT/PE s/p prior IVCF placement, Hx SVT, Chronic lumbar stenosis with BL LE weakness/chronic pain/near bedbound status who presents to the [facility] ED on 04/20/21 with history of fluctuating heart rate as well as oxygen needs over the day with unresponsive episode prompting to call EMS with arrival potentially 10 to 15 minutes following with no pulse or breathing. #1. Acute cardiopulmonary arrest with ROSC: We will admit patient to the ICU, pulmonary critical care consulted, will continue intubated status, requiring no sedation currently but if necessary we will add, patient initially with fixed dilated pupils therefore will obtain CT head however patient has been improving while in the ED and becoming more responsive, will cycle cardiac enzymes, unfortunately unable obtain magnesium level, FLP in a.m., echocardiogram requested. Continue treatment as noted below. #2. Questionable Community Acquired Pneumonia versus Diastolic CHF exacerbation: CXR in the ED w/ questionable overload and superimposed pneumonia. Given presentation certainly could be associated with his cardiopulmonary arrest versus the etiology for his arrest but given presentation being aggressively hydrated, will maintain intubated and sedated status, pulmonary medicine/critical care consulted and pending, continue vancomycin and Zosyn given MRSA/pseudomonal history with MRSA screen pending, pending sputum cultures and urine antigens as well as procalcitonin, if less concern for infection could certainly de-escalate off therapy. At this point will defer any diuresis. #3. Acute kidney injury on CKD stage III unclear subtype: Secondary to acute presentation as noted #1 with hypoperfusion, admission BUN/Cr 62/2.51, prior baseline creatinine noted to be 1.1-1.3. Will hydrate, hold nephrotoxic medications and repeat chemistry in AM. If no improvement would plan FeNa assessment. #4. Lactic acidosis: Admission lactic acid 9.1, likely secondary to acute presentation with acute cardiopulmonary arrest, aggressively hydrated in the ED, will trend lactic acid per facility protocol. #5. Elevated LFTs: Admission total bilirubin 0.40, AST/ALT 269/40, likely secondary to hypoperfusion with acute presentation with cardiopulmonary arrest as noted, continue treatments as noted, repeat CMP in AM. #6. Hyperkalemia: Admission potassium 6.0, respiratory status corrected therefore repeat potassium level pending, if remains high will treat with hyperkalemia protocols, plan repeat level following. #7. Chronic anemia/iron deficiency anemia: Admission hemoglobin 10.1, baseline appears 8-9 most recently, holding oral iron supplementation, add back once appropriate, repeat CBC in a.m. #8. Chronic COPD with chronic hypoxic respiratory failure complicated by acute presentation as noted #1: As noted currently intubated, continue ATC duonebs, PRN albuterol, HOB, IS parameters. #9. Chronic bilateral lower extremity/scrotal/decubitus ulcers: We will continue wound RN evaluation, wound care, offloading. #10. Hypertension: Holding regimen especially given hypotensive presentation, add back once appropriate. #11. Hyperlipidemia: Per current regimen not on statin, FLP in AM. #12. ADELAIDE: Currently intubated as noted above. #13. Morbid Obesity: Weight loss and lifestyle changes encouraged, nutrition consulted. #14. Chronic lumbar stenosis with bilateral lower extremity chronic debility/weakness, near wheelchair-bound status with chronic pain syndrome: Patient's pain medication for review as needed only, will hold given presentation however will closely monitor for any withdrawal in case he takes very frequently, continue frequent offloading and wound care as noted. #15. Former tobacco use: Encourage continued tobacco cessation. #16. GERD: We will maintain on PPI. #17. DVT prophylaxis: SCDs, heparin. #18. CODE status: Patient does not have healthcare power of economic research assistant nor living will set up. Discussed CODE status at length including difference between FULL code, DNR-CCA and DNR-CC status. Following discussions about the differences in these status, requested continued full CODE STATUS. Advanced Care Planning Face to Face Time: 16 minutes. Charges/Coding Visit Charges Inpatient E&M: 57905 Init Hosp L3 Procedures Hospitalists Procedures: 12894 Advncd Care Plan 30 Min
--- NOTE | 2021-04-20 21:30 | ED.RN ---
HOLDING LEVOPHED AT THIS TIME PER DR OCHOA.
[2021-04-20 21:42] LABS: Lactic Acid 9.1 mmol/L (0.4-1.9)
--- NOTE | 2021-04-20 21:43 | CT_ITS ---
HISTORY: Unresponsive, fixed dilated pupils upon presentati TECHNIQUE: Multiple axial images were obtained of the brain without intravenous contrast. Coronal and sagittal reformats obtained. Bone algorithm axial images obtained. A radiation dose optimization technique was used for this scan. COMPARISON: None FINDINGS: # of images incl. paperwork: 260 TUBES: Partially seen endotracheal and enteric tubes. HEMORRHAGE: No evidence of acute intracranial hemorrhage. CEREBRAL PARENCHYMA: --Volume: Minimal cerebral volume loss compatible with age. --White matter: Minimal Hypodense periventricular and subcortical chronic small vessel white matter ischemic change. --Mass: No evidence of intracranial mass. --Stroke: Larios-white matter differentiation is preserved. VENTRICULAR SYSTEM: No hydrocephalus. MASS EFFECT: No midline shift or focal sulci effacement. Basal cisterns are preserved. SCALP: No large scalp hematoma. CALVARIUM/SKULL BASE: No fracture. PARANASAL SINUSES: Clear. MASTOID AIR CELLS: Clear. ORBIT IMAGED PORTIONS: Unremarkable for age. VESSELS: Carotid and vertebral atherosclerosis. ASPECTS acute stroke score: 10 CT/Brain/Head without Contrast IMPRESSION: No CT evidence of acute intracranial process. Senescent changes and atherosclerosis. Individualized dose optimization techniques were used for this CT. at 0054 Reported and signed by: Rafa Garcia MD Electronically Signed: Rafa Garcia MD at 0:53 EST Reading Location ID and State: [facility] / [place] Tel , Service support ,
--- NOTE | 2021-04-20 22:45 | RAD_ITS ---
INDICATION: Left subclavian line placement EXAMINATION/TECHNIQUE: X-RAY - XR Chest 1 View COMPARISON: 04/20/2021. FINDINGS: The lungs are unchanged. The cardiomediastinal silhouette is stable. Interval placement of left subclavian central venous catheter with tip in the left brachiocephalic vein. Remaining lines and tubes are unchanged. No pleural effusion or pneumothorax. The osseous structures are unchanged. RAD/Chest 1 View (Portable) IMPRESSION: Interval placement of left subclavian central venous catheter with tip in the left brachiocephalic vein. No other changes. Electronically Signed: Kvng Luico MD at 23:40 EST ,
[2021-04-20 22:48] LABS: Potassium 4.4 mmol/L (3.5-5.1)
[2021-04-20 23:18] LABS: BNP,B-Type NATRIURETIC PEPTIDE 1093.2 pg/mL (0-100)
[2021-04-20 23:22] LABS: Procalcitonin 0.16 ng/mL (0.00-0.09)
[2021-04-20] MEDS: fentaNYL 100 MCG/2 ML Ampul 50 MCG IV (23:34)
[2021-04-21] VITALS (39 sets, daily range): BP systolic 93–160; BP diastolic 67–112; PULSE 62–176; RESP 16–116; TEMP 33.6–37.3; O2SAT 90–100; BMI 41.8
[2021-04-21] MEDS: 0.9% Normal Saline 1,000 ML 999 ML IV
[2021-04-21 00:27] LABS: Reflex Lactate? Y
--- NOTE | 2021-04-21 00:56 | ECHOCS_ITS ---
Reason For Study: CARDIAC ARREST Procedure This was a 2D Doppler, Color Flow transthoracic echocardiogram. The study was technically difficult. Contrast injection was performed. Left Ventricle Based upon the 2D echocardiographic and contrast enhanced images obtained there appears to be grossly normal left ventricular size with mild global left ventricular systolic dysfunction. The estimated ejection fraction is 45 %. There is evidence of diastolic dysfunction. Right Ventricle Based upon the 2D echocardiographic and contrast enhanced images obtained there appears to be moderate right ventricular dilatation with moderate global right ventricular systolic dysfunction. Atria The left atrium is mildly enlarged. The right atrium is mildly enlarged. No doppler evidence for ASD. Mitral Valve There is mild to moderate mitral annular calcification. Extension of the mitral annular calcification onto the base of the posterior mitral valve leaflet. Trivial mitral valve insufficiency. Tricuspid Valve Normal tricuspid valve. Mild tricuspid valve insufficiency. Right ventricular systolic pressure estimated to be 51 mmHg. Aortic Valve Trisinus/trileaflet aortic valve. Moderate focal aortic valve calcification. Pulmonic Valve The pulmonic valve is not well visualized. Great Vessels Mildly dilated aortic root. Mild pulmonary artery dilation. Pericardium/Pleural No pericardial effusion. Medication Diluted definity 3.0ml given slow IV push to enhance endocardial definition. MMode/2D Measurements & Calculations LVIDd: 5.0 cm IVSd: 0.97 cm Ao root diam: 4.1 cm LVIDs: 3.8 cm LVPWd: 1.2 cm RVDd: 4.1 cm FS: 24.4 % LAV(MOD-sp4): 100.4 ml LVAd ap4: 26.0 cm2 LVAd ap2: 25.5 cm2 LVLd ap4: 7.6 cm LVLd ap2: 8.0 cm EDV(MOD-sp4): 78.1 ml EDV(MOD-sp2): 67.2 ml EDV(sp4-el): 75.7 ml EDV(sp2-el): 69.0 ml LVAs ap4: 20.2 cm2 LVAs ap2: 19.3 cm2 LVLs ap4: 7.0 cm LVLs ap2: 7.8 cm ESV(MOD-sp4): 51.7 ml ESV(MOD-sp2): 42.1 ml ESV(sp4-el): 49.6 ml ESV(sp2-el): 40.3 ml EF(MOD-sp4): 33.8 % EF(MOD-sp2): 37.3 % EF(sp4-el): 34.5 % SV(MOD-sp4): 26.4 ml SV(MOD-sp2): 25.1 ml SV(sp4-el): 26.1 ml LA A4 area: 25.3 cm2 LA dimension(2D): 4.2 cm RA A4 area: 29.4 cm2 Time Measurements MV dec time: 0.22 sec Doppler Measurements & Calculations MV E max jb: 76.4 cm/sec Lat Peak E' Jb: 5.6 cm/sec Med Peak E' Jb: 4.4 cm/sec MV A max jb: 76.6 cm/sec E/E' lat: 13.6 E/E' med: 17.4 MV E/A: 1.00 Ao V2 max: 137.0 cm/sec LV V1 max: 70.7 cm/sec PA V2 max: 56.3 cm/sec Ao max P.5 mmHg LV V1 max P.0 mmHg TR max jb: 297.9 cm/sec TR max P.5 mmHg ECHO/Echo Complete W/ Contrast Interpretation Summary The study was technically difficult. Contrast injection was performed. Based upon the 2D echocardiographic and contrast enhanced images obtained there appears to be grossly normal left ventricular size with mild global left ventricular systolic dysfunction. The estimated ejection fraction is 45 %. Based upon the 2D echocardiographic and contrast enhanced images obtained there appears to be moderate right ventricular dilatation with moderate global right ventricular sy stolic dysfunction. The left atrium is mildly enlarged. The right atrium is mildly enlarged. There is mild to moderate mitral annular calcification. Extension of the mitral annular calcification onto the base of the posterior mi tral valve leaflet. Trivial mitral valve insufficiency. Mild tricuspid valve insufficiency. Moderate focal aortic valve calcification. Mildly dilated aortic root. Mild pulmonary artery dilation. Right ventricular systolic pressure estimated to be 51 mmHg c/w with pulmonary hypertension. There is evidence of diastolic dysfunction. Ordering Physician: Becka Castro Referring Physician: Alex Pedersen Performed By: Fariha Rodríguez, RDCS, RVT
[2021-04-21 01:08] LABS: Absolute Lymphocyte Count 0.48 X10^3/uL (0.83-4.51); Absolute Neutrophil Count 11.9 X10^3/uL (2.0-7.7); Basophil# 0.01 X10^3/uL; Basophil% 0.1 % (0-1); Hematocrit 31.3 % (40-54); Hemoglobin 9.6 g/dL (13.0-16.5); Lymphocyte # 0.48 X10^3/ul (0.83-4.51); Lymphocyte % 3.6 % (19-41); Mean Corp Hgb Conc 30.7 g/dL (32-36); Mean Corpuscular Volume 84.8 fL (80-94); Mean Platelet Vol. 9.7 fl (6.2-12.0); Monocyte# 0.85 X10^3/uL; Monocyte% 6.4 % (0-10); NRBC Flagged by Analyzer 2.8 % (0-5); Neutrophil # 11.91 X10^3/uL (2.7-7.7); Neutrophil % 88.9 % (47-70); POSITIVE DIFFERENTIAL YES; Platelet Count 152 K/mm3 (150-450); RBC Distribution Width CV 18.6 % (11.6-14.6); RBC Distribution Width SD 57.2 fl (35.1-43.9); Red Blood Count 3.69 M/mm3 (4.6-6.2); White Blood Count 13.4 K/mm3 (4.4-11.0)
[2021-04-21 01:11] LABS: Blood Gas Specimen Type VEN; O2 Delivery Device Adult Vent; PEEP 5; RR 16; SITE R Radial; VBG BASE EXCESS 3 mmol/L (-1.0-3.5); VBG Bicarbonate 28 mmol/L (22-26); VBG PO2 45 mmHg (25-40); VBG SO2 79 % (50-70); VBG TCO2 30 mmol/L (23-33); VBG pCO2 48.4 mmHg (41-51); VBG pH 7.37 (7.32-7.42)
--- NOTE | 2021-04-21 01:15 | NURSING ---
Spoke with daughter Gladys about current med list. Also spoke with , son and other daughter about current med list. Also discussed post arrest cooling ACLS protocol and equipment such as the arctic sun, discussed that we do not have the capability or policy in place to cool pt post arrest. Family verbalized understanding.
[2021-04-21 01:32] LABS: ALB/GLOB Ratio 0.5 RATIO (0.9-2.4); AST(SGOT) 242 U/L (15-37); Alanine Aminotransfer ALT/SGPT 429 U/L (16-61); Albumin, Serum 2.2 g/dL (3.2-5.0); Alkaline Phosphatase 99 U/L (45-117); BUN 58 mg/dL (7-18); BUN/Creat Ratio 28.3 RATIO (10-20); Calcium,Total 8.5 mg/dL (8.5-10.1); Chloride 103 mmol/L (98-107); Creatinine, Serum 2.05 mg/dL (0.70-1.30); EST Glomerular Filtration Rate 35 mL/min (>60); Est Glom Filt Rate - Afr Amer 42 mL/min (>60); Estimated Creatinine Clearance 31.55 ml/min; Globulin 4.2 g/dL (2.2-4.2); Glucose 202 mg/dL (74-106); Potassium 5.7 mmol/L (3.5-5.1); Protein, Total 6.4 g/dL (6.4-8.2); Sodium Level 138 mmol/L (136-145)
[2021-04-21 01:33] LABS: Anion Gap 8 (5-15); Troponin-I HS 23 pg/mL (3.0-78.0)
[2021-04-21 01:40] LABS: Lactic Acid 2.9 mmol/L (0.4-1.9)
[2021-04-21 01:51] LABS: Bedside Glucose 213 mg/dL (70-110)
[2021-04-21] MEDS: Ipratropium/Albuterol Sulfate 3 ML AMPUL.NEB INHALATION (02:00)
[2021-04-21] MEDS: 0.9% Normal Saline 1,000 ML 100 ML IV (02:13)
[2021-04-21] MEDS: BRIMONIDINE 0.2% 5ML BOTTLE 1 DRP OPHTHALMIC ×3 (02:15→23:34)
[2021-04-21] MEDS: Chlorhexidine 15 ML PO ×3 (02:19→22:00)
[2021-04-21] MEDS: Dorzolamide HCL/Timolol 10 ml Bottle 1 DRP OPHTHALMIC ×3 (02:21→23:35)
[2021-04-21] MEDS: Nystatin Powder 15gm Bottle 1 APPLIC TOPICAL ×3 (02:23→23:35)
[2021-04-21] MEDS: Latanoprost 0.005% 1 Bottle 1 DRP OPHTHALMIC (02:27)
[2021-04-21] MEDS: Insulin Lispro 10 UNIT in Syringe 0 ML 6 UNIT IV (02:31)
[2021-04-21] MEDS: Insulin Lispro 100 UNIT/ML INSULN.PEN SC ×2 (02:32→06:14)
[2021-04-21] MEDS: Polyethylene Glycol 3350 17 GM PACKET 34 GM PO (02:34)
[2021-04-21] MEDS: Sodium Polystyrene Sulfonate 15 GM/60 ML UDC PO (02:34)
[2021-04-21] MEDS: Dextrose 10%-Water 250 ML 999 ML IV (02:38)
--- NOTE | 2021-04-21 02:48 | PCM.RX.CS ---
Consult Pharmacy has been consulted to manage selected antiobiotic: Vancomycin Type of Consult: New start Suspected Infection: Pneumonia Prior Doses of Antibiotics Received/Current Regimen: Medications Vancomycin HCl 1,500 mg/ (Sodium Chloride) 530 mls @ 250 mls/hr IV Q24H AMBROSE Vancomycin HCl 2,000 mg/ (Sodium Chloride) 540 mls @ 250 mls/hr IV X1 ONE Stop: 04/21/21 03:39 Last Admin: 04/21/21 02:15 Dose: 250 mls/hr Labs: Sodium 138 mmol/L (136-145) 04/21/21 00:55 Potassium 5.7 mmol/L (3.5-5.1) H 04/21/21 00:55 Chloride 103 mmol/L (98-107) 04/21/21 00:55 Carbon Dioxide 27.0 mmol/L (21.0-32.0) 04/21/21 00:55 Anion Gap 8 (5-15) 04/21/21 00:55 BUN 58 mg/dL (7-18) H 04/21/21 00:55 Creatinine 2.05 mg/dL (0.70-1.30) H 04/21/21 00:55 Est GFR (MDRD) Af Amer 42 mL/min (>60) L 04/21/21 00:55 Est GFR (MDRD) Non-Af 35 mL/min (>60) L 04/21/21 00:55 BUN/Creatinine Ratio 28.3 RATIO (10-20) H 04/21/21 00:55 Glucose 202 mg/dL (74-106) H 04/21/21 00:55 Weight used for dosin.9 kg Estimated Creatinine Clearance: 35.4 Goal Trough: 15-20 mcg/mL Pharmacy Plan for Drug Dosing: Pharmacy Service will continue to monitor and adjust dosing as required. Follow-Up Labs: Trough Vancomycin Labs to be done on [date and time ordered]: 04/23/21 @[id number]
[2021-04-21] MEDS: Calcium Chloride 1 GM/10 ML Syringe IV (02:54)
[2021-04-21 03:13] LABS: Differential Indicated SCAN CRITERIA MET
[2021-04-21 03:57] LABS: M R Staph aureus DNA By PCR POSITIVE (Negative)
[2021-04-21 03:58] LABS: Probe Check PASS; Specimen Processing Control PASS
[2021-04-21 04:12] LABS: CPK Total, Creatine Kinase 136 U/L (39-308); Triglycerides 91 mg/dL
[2021-04-21] MEDS: Propofol 10MG/Ml 1,000 MG/100 ML Bottle 7.3 MG CONT INF (04:14)
[2021-04-21 04:39] LABS: ALB/GLOB Ratio 0.5 RATIO (0.9-2.4); AST(SGOT) 212 U/L (15-37); Alanine Aminotransfer ALT/SGPT 407 U/L (16-61); Albumin, Serum 2.1 g/dL (3.2-5.0); Alkaline Phosphatase 96 U/L (45-117); Anion Gap 6 (5-15); BUN 53 mg/dL (7-18); BUN/Creat Ratio 27.5 RATIO (10-20); Calcium,Total 9.1 mg/dL (8.5-10.1); Chloride 103 mmol/L (98-107); Creatinine, Serum 1.93 mg/dL (0.70-1.30); EST Glomerular Filtration Rate 37 mL/min (>60); Est Glom Filt Rate - Afr Amer 45 mL/min (>60); Estimated Creatinine Clearance 33.52 ml/min; Globulin 4.1 g/dL (2.2-4.2); Glucose 187 mg/dL (74-106); Potassium 4.5 mmol/L (3.5-5.1); Protein, Total 6.2 g/dL (6.4-8.2); Sodium Level 138 mmol/L (136-145)
[2021-04-21] MEDS: TITRATION PARAMETER CHANGE 1 EACH IV (05:21)
[2021-04-21 06:21] LABS: Bedside Glucose 155 mg/dL (70-110)
--- NOTE | 2021-04-21 06:29 | CON.PCM.CC_ITS ---
Assessment & Plan Assessment/Plan (1) Cardiopulmonary arrest with successful resuscitation: PLAN: RECOMMENDATIONS: 1. Continue current supportive measures including invasive mechanical venti latory support. 2. Wean FiO2/PEEP for saturations greater than 90%. 3. Obtain repeat arterial blood gas. 4. Hold all sedating medications. 5. Stop continuous IV fluids. 6. Continue empiric antimicrobials. 7. Okay to hold scheduled bronchodilator therapy, given persistent tachycardia. 8. Tentative plans for family meeting to discuss goals of care later today. IMPRESSIONS: 1. Acute on chronic respiratory failure status post out of hospital cardiac arrest The patient presented to the ED on April 20 following an out of hospital PEA cardiac arrest with successful ROSC. Approximately 20 minutes elapsed from onset of arrest to successful return of spontaneous circulation. As a consequence, it does appear that the patient has sustained some form of anoxic brain injury. The patient will be continued on assist control mode of mechanical ventilation. FiO2 and PEEP will be weaned as tolerated to maintain saturations at or above 90%. R epeat arterial blood gas will be obtained this morning. Continue empiric antimicrobials, pending culture results. Cardiology has been consulted with tentative plans to complete echocardiogram this morning. 2. Encephalopathy Likely secondary to anoxia sustained as a consequence of his cardiac arrest. We will continue current supportive measures as noted above. All sedating medication will be withheld. Ativan to be utilized as needed for any seizure activity. EEG was completed this morning, with read pending. 3. Acute on chronic kidney disease/acute liver injury Likely secondary to global hypoperfusion in the setting of cardiac arrest. Anti cipate improvement in organ function with stabilization of hemodynamics. Continue to monitor urine output. No current indication for renal replacement therapy. 4. History of chronic wounds Continue local wound care. 5. History of SVT/chronic pain syndrome/morbid obesity/heart failure with preserved ejection fraction/ADELAIDE/COPD Complicates care, management, recovery and prognosis. Continue supportive measures as noted above. Hold on tube feeds for now. TIME: 42 minutes of critical care time, independent of procedures, was spent addressing the patient's acute on chronic respiratory failure status post cardiac arrest, encephalopathy, acute on chronic kidney disease, acute liver injury, review of all data and collaboration with the care team. HPI Consult Data Date of Consult: 04/22/21 HPI Narrative Reason for Consultation: Acute respiratory failure status post cardiac arrest HPI Narrative: The patient is a 66-year-old male, with a history as outlined below, who presented to the emergency department via EMS on April 20 after sustaining an [id number] cardiac arrest. According to EMS documentation, the patient was last noted to be well 10 minutes prior to EMS arrival. ACLS was initiated by EMS personnel. The patient was noted to be in PEA cardiac arrest. The patient in total received 3 rounds of epinephrine prior to ROSC, which occurred at approximately the 10-minute morena. However, the patient apparently once again became pulseless while in route to the hospital. ROSC was again achieved in the emergency department. The patient does have a complex medical history with multiple comorbid conditions including scrotal and perineal ulcers which has been managed by home health and wound care. He also has a history of SVT, chronic pain syndrome, morbid obesity, generalized debility, chronic heart failure with preserved ejection fraction, obstructive sleep apnea and COPD. On presentation to the emergency department, the patient was documented to be hypothermic with a temperature of 96.6 ?F. Laboratory evaluation revealed an elevated white blood cell count of 15,000. Chemistry profile was notable for a sodium of 136, potassium of 6.0 and creatinine of 2.51. Lactate was elevated at 9.1. AST and ALT were increased at 269 and 480, respectively. BNP was elevated at 1093. Procalcitonin was noted to be 0.16. MRSA screen was positive. Blood and sputum cultures were obtained. Initial CT head was unremarkable. Bilateral basilar airspace opacities were noted on chest imaging. The patient was started on broad-spectrum empiric antimicrobials and admitted to the medical intensive care unit. Overnight, the patient has remained completely unresponsive with fixed and dilated pupils. He remained completely apneic this morning when placed on spontaneous mode mechanical ventilation. Nursing staff did report myoclonic jerking overnight. According to the overnight nursing staff, the patient's family was advised at the time of his admission that we do not offer therapeutic hypothermia. [facility] Medical History Acute respiratory failure with hypoxia and hypercapnia Anemia Arthritis aspiration of left knee Bilateral pulmonary infiltrates on CXR BPH (benign prostatic hyperplasia) Bradycardia Cardiology follow-up encounter Chronic cutaneous venous stasis ulcer Chronic diastolic (congestive) heart failure Chronic kidney disease, stage 3 Chronic pain Chronic respiratory failure Chronic venous insufficiency Chronic venous stasis dermatitis COPD (chronic obstructive pulmonary disease) Debility Decubitus ulcer Diabetes Disability of walking Essential (primary) hypertension Excoriation of multiple sites (~07/2020) Former smoker Generalized weakness GERD (gastroesophageal reflux disease) Glaucoma 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 History of CHF (congestive heart failure) History of edema History of GI bleed History of renal disease History of ulceration Hx of cataract Hyperlipidemia Hypertension Kidney stones Lip swelling Low testosterone in male Lower extremity weakness Morbid obesity MRSA (methicillin resistant Staphylococcus aureus) infection Non-healing ulcer of multiple sites, limited to breakdown of skin Normocytic anemia Obesity ADELAIDE (obstructive sleep apnea) Osteoarthritis Pressure ulcer Pseudomonas aeruginosa infection Secondary pulmonary arterial hypertension Shortness of breath Shortness of breath on exertion Sleep apnea Stage 2 moderate COPD by GOLD classification Thoracic aortic aneurysm without rupture Tobacco use Type 2 diabetes mellitus Ulcer of right lower extremity Wears glasses Home Medications brimonidine 0.2 % eye drops 1 drp OPHTHALMIC BID ml 05/04/18 [History Last Taken Unknown] dorzolamide 2 %-timolol 0.5 % (PF) eye drops 1 drp OPHTHALMIC BID 05/04/18 [History Last Taken Unknown] omeprazole 20 mg capsule,delayed release 20 mg PO DAILY 05/04/18 [History Last Taken Unknown] tamsulosin 0.4 mg capsule 0.4 mg PO DAILY@0800 05/30/18 [History Last Taken Unknown] latanoprost 0.005 % eye drops 1 drp OPHTHALMIC QPM 09/06/18 [History Last Taken Unknown] oxygen 2 l MISCELLANEOUS 12/06/18 [History Last Taken Unknown] cholecalciferol (vitamin D3) 1,250 mcg (50,000 unit) tablet 50,000 unit PO QWEEK #10 tab 02/04/19 [Rx Last Taken Unknown] Lift Chair #1 ea 07/03/20 [Rx Last Taken Unknown] furosemide 40 mg tablet 40 mg PO BID #180 tab 08/07/20 [Rx Last Taken Unknown] L.acid,casei,plant,saliv-B.ani [Probiotic Formula] 1 cap PO BID 12/20/20 [History Last Taken Unknown] albuterol sulfate 2.5 mg INHALATION Q6H PRN PRN 12/20/20 [History Last Taken Unknown] budesonide 0.5 mg INHALATION BID 12/20/20 [History Last Taken Unknown] diphenhydramine HCl 25 mg PO Q4H PRN 12/20/20 [History Last Taken Unknown] docusate sodium 100 mg PO BID 12/20/20 [History Last Taken Unknown] fluticasone propion-salmeterol [Wixela Inhub] 1 inh INHALATION BID 12/20/20 [History Last Taken Unknown] loratadine 10 mg PO DAILY@0800 12/20/20 [History Last Taken Unknown] montelukast 10 mg PO QHS 12/20/20 [History Last Taken Unknown] multivitamin,jr-dmsm-Mv-FA-min [Multivitamin And Mineral] 1 tab PO DAILY@0800 12/20/20 [History Last Taken Unknown] pramoxine-mineral oil-zinc [Anusol] 1 ea TOPICAL TID PRN PRN 12/20/20 [History Last Taken Unknown] sertraline 25 mg PO DAILY@0800 12/20/20 [History Last Taken Unknown] tiotropium bromide [Spiriva Respimat] 2 puff INHALATION DAILY 12/20/20 [History Last Taken Unknown] bacitracin zinc 1 applic TOPICAL BID #0 g 01/21/21 [Rx Last Taken Unknown] hydrocortisone acetate [Anucort-HC] 25 mg OK DAILY PRN PRN 30 Days #30 ea 01/21/21 [Rx Last Taken Unknown] nystatin [Nyamyc] 1 applic TOPICAL BID #0 g 01/21/21 [Rx Last Taken Unknown] white petrolatum [Aquaphor Healing] 1 applic TOPICAL DAILY PRN PRN #0 g 01/21/21 [Rx Last Taken Unknown] metoprolol tartrate 50 mg tablet 75 mg PO BID #90 tab 03/09/21 [Rx Last Taken Unknown] oxycodone-acetaminophen 5 mg-325 mg tablet 1 tab PO Q6H PRN 7 Days #28 tab 0 04/14/21 [Rx Last Taken Unknown] alogliptin 12.5 mg PO DAILY 04/20/21 [History Last Taken Unknown] carvedilol 3.125 mg PO BID 04/20/21 [History Last Taken Unknown] mometasone-formoterol [Dulera] 1 puff INHALATION BID 04/20/21 [History Last Taken Unknown] timolol maleate 1 drp EACH EYE BID 04/20/21 [History Last Taken Unknown] guaifenesin [Robitussin] 200 mg PO Q4H 04/21/21 [History Last Taken Unknown] Allergy/AdvReac Type Severity Reaction Status Date / Time lisinopril Allergy Severe Angioedema Verified 04/20/21 20:14 Sulfa (Sulfonamide AdvReac Other Verified 04/20/21 20:14 Antibiotics) chapstick Allergy swelling Uncoded 04/20/21 20:14 Family History Father Cancer Mother Asthma Surgical History History of carpal tunnel surgery of right wrist History of cataract extraction Social History household members: spouse Smoking Status: Former smoker second hand exposure: No alcohol intake: current alcohol intake frequency: a few times a week substance use type: does not use caffeine: No what type of physical activity do you participate in: none ROS Review of Systems ROS Unobtainable: due to endotracheal tube and due to mental condition Physical Exam Const Constitutional Narrative: The patient is completely unresponsive to verbal, tactile or painful stimulation. General Appearance: intubated and patient mechanically ventilated Exam Limitations: altered mental status Nutritional Appearance: morbidly obese HEENT normocephalic and head/scalp atraumatic Mouth: endotracheal tube in place and OG tube in place Eyes Pupil: dilated and fixed Neck supple General: trachea midline and CVC in place Resp Resp Narrative: Breathing at set rate on the ventilator. Auscultation: diminished lung sounds; Negative for rales, rhonchi or wheezes Cardio regular rate and regular rhythm GI normal to inspection, nondistended, normoactive bowel sounds Extremity no clubbing, cyanosis or edema Skin Wound Narrative: Multiple wounds scattered over lower extremities and perineum. Neuro Neuro Narrative: Comatose on ventilator. Lab / Micro Data Result Diagrams: 04/21/21 00:55 04/21/21 04:15 Labs: Laboratory Results - last 24 hr 04/20/21 20:10: POC Glucose 172 H 04/20/21 20:18: WBC 15.1 H, RBC 3.91 L, Hgb 10.1 L, Hct 34.1 L, MCV 87.2, MCH 25.8 L, MCHC 29.6 L, RDW Std Deviation 59.7 H, RDW Coeff of Johanna 18.7 H, Plt Count 189, MPV 10.0, Immature Gran % (Auto) [employer], Neut % (Auto) [employer]ERSON, Lymph % (Auto) [employer], Loup % (Auto) [employer]ERSON, Eos % (Auto) [employer], Baso % (Auto) [employer]ERSON, Absolute Neuts (auto) 12.9 H, Absolute Lymphs (auto) 1.51, Total Counted 100, Neutrophils % (Manual) 82 H, Band Neutrophils % 3, Lymphocytes % (Manual) 10 L, Metamyelocytes % 4 H, Myelocytes % 1 H, Nucleated RBC % [employer], Nucleated RBCs/100 WBC 4, Diff Path Review July, Platelet Estimate ADEQUATE, RBC Morphology N CHROM, Anisocytosis RARE 04/20/21 20:18: PT 18.5 H, INR 1.6, APTT 41.1 H 04/20/21 20:18: Sodium 136, Potassium 6.0 H*, Chloride 99, Carbon Dioxide 28.0, Anion Gap 9, BUN 62 H, Creatinine 2.51 H, Estim Creat Clear Calc 26.70, Est GFR (MDRD) Af Amer 33 L, Est GFR (MDRD) Non-Af 27 L, BUN/Creatinine Ratio 24.7 H, Glucose 227 H, Calcium 8.8, Total Bilirubin 0.40, AST 269 H, ALT 480 H, Alkaline Phosphatase 115, Troponin I High Sens 14, Total Protein 7.0, Albumin 2.4 L, Globulin 4.6 H, Albumin/Globulin Ratio 0.5 L 04/20/21 20:18: Lactic Acid 9.1 H* 04/20/21 20:18: B-Natriuretic Peptide 1093.2 H 04/20/21 22:32: Procalcitonin 0.16 H 04/20/21 22:32: Potassium 4.4 04/20/21 22:52: Total Creatine Kinase 136, Triglycerides 91 04/21/21 00:55: WBC 13.4 H, RBC 3.69 L, Hgb 9.6 L, Hct 31.3 L, MCV 84.8, MCH 26.0 L, MCHC 30.7 L, RDW Std Deviation 57.2 H, RDW Coeff of Johanna 18.6 H, Plt Count 152, MPV 9.7, Immature Gran % (Auto) 1.000 H, Neut % (Auto) 88.9 H, Lymph % (Auto) 3.6 L, [place]oup % (Auto) 6.4, Eos % (Auto) 0.0, Baso % (Auto) 0.1, Absolute Neuts (auto) 11.9 H, Absolute Lymphs (auto) 0.48 L, Nucleated RBC % 2.8 04/21/21 00:55: Sodium 138, Potassium 5.7 H, Chloride 103, Carbon Dioxide 27.0, Anion Gap 8, BUN 58 H, Creatinine 2.05 H, Estim Creat Clear Calc 31.55, Est GFR (MDRD) Af Amer 42 L, Est GFR (MDRD) Non-Af 35 L, BUN/Creatinine Ratio 28.3 H, Glucose 202 H, Calcium 8.5, Total Bilirubin 0.50, AST 242 H, ALT 429 H, Alkaline Phosphatase 99, Total Protein 6.4, Albumin 2.2 L, Globulin 4.2, Albumin/Globulin Ratio 0.5 L 04/21/21 00:55: Troponin I High Sens 23 04/21/21 01:00: Lactic Acid 2.9 H* 04/21/21 01:44: POC Glucose 213 H 04/21/21 01:45: MRSA (PCR) POSITIVE H 04/21/21 04:15: Sodium 138, Potassium 4.5, Chloride 103, Carbon Dioxide 29.0, Anion Gap 6, BUN 53 H, Creatinine 1.93 H, Estim Creat Clear Calc 33.52, Est GFR (MDRD) Af Amer 45 L, Est GFR (MDRD) Non-Af 37 L, BUN/Creatinine Ratio 27.5 H, Glucose 187 H, Calcium 9.1, Total Bilirubin 0.60, AST 212 H, ALT 407 H, Alkaline Phosphatase 96, Total Protein 6.2 L, Albumin 2.1 L, Globulin 4.1, Albumin/Globulin Ratio 0.5 L 04/21/21 06:13: POC Glucose 155 H ABG Data ABG results: ABG 04/20/21 04/21/21 20:30 01:00 Specimen Type ART LILIAN Sample Site R Radial R Radial pH 7.15 L* Bicarbonate Actual 27.3 H Total CO2 30 Base Excess -2 O2 Saturation 100 H O2 % 100 ABG pCO2 77.9 H* ABG pO2 220 H Frederick Test N/A VBG pH 7.37 VBG pO2 45 H VBG HCO3 28 H VBG Total CO2 30 VBG O2 Sat (Calc) 79 H VBG Base Excess 3 POC Mix VBG pCO2 Pt Tmp 48.4 Respiration Rate 16 16 O2 Delivery Device Adult Vent Adult Vent Vent Mode AC Tidal Volume 500 POC PEEP 5 5 Crit Call To/Read Back Yes Blood Gas Notified Whom Dr. Valladares Radiology Impression Chest X-Ray 04/20/21 20:51 IMPRESSION: Endotracheal tube tip is in the midthoracic trachea. Enteric tube is within the stomach. Findings suggest CHF/pulmonary edema. Superimposed pneumonia should be excluded clinically. Electronically Signed: Boubacar Finn MD at 21:38 EST , Brain CT 04/20/21 21:43 IMPRESSION: No CT evidence of acute intracranial process. Senescent changes and atherosclerosis. Individualized dose optimization techniques were used for this CT. at 0054 Reported and signed by: Rafa Garcia MD Electronically Signed: Rafa Garcia MD at 0:53 EST , Chest X-Ray 04/20/21 22:45 IMPRESSION: Interval placement of left subclavian central venous catheter with tip in the left brachiocephalic vein. No other changes. Electronically Signed: Kvng Lucio MD at 23:40 EST , Charges/Coding Procedures Hospitalists Procedures: 77107 Critial Care 1st Hr
[2021-04-21 07:06] LABS: Allen Test Positive; Base Excess 3 mmol/L (-2 to +2); Bicarbonate 26.8 mmol/L (22-26); Blood Gas Specimen Type ART; FI02 35; Mode AC; O2 Delivery Device Adult Vent; PEEP 5; PO2 49 mmHG (75-100); RR 16; SITE R Radial; SO2 86 % (95-99); Total Carbon Dioxide 28 mmol/L; Vt 500; pCO2 37.4 mmHg (35-45); pH 7.46 (7.35-7.45)
--- NOTE | 2021-04-21 07:12 | PCM.PN.HOSP ---
Objective Data Objective Data Vital Signs: Vital Signs Temp Pulse Resp BP Pulse Ox 94.8 F L 145 H 17 129/89 H 91 04/21/21 06:00 04/21/21 06:38 04/21/21 06:38 04/21/21 06:00 04/21/21 06:38 Oxygen Flow Rate (L/min) 100 Oxygen Delivery Method Mechanical Ventilator Weight: 120.9 kg Body Mass Index (BMI) 41.8 Intake & Output: Intake and Output for Last 24 Hours 04/19/21 04/20/21 04/21/21 23:59 23:59 23:59 Intake Total 4305 / 4305 1641.43 / 1641.43 Output Total 550 / 550 Balance 4305 / 4305 1091.43 / 1091.43 Lab / Micro Data Result Diagrams: 04/21/21 00:55 04/21/21 04:15 Labs: Laboratory Results - last 24 hr 04/20/21 20:10: POC Glucose 172 H 04/20/21 20:18: WBC 15.1 H, RBC 3.91 L, Hgb 10.1 L, Hct 34.1 L, MCV 87.2, MCH 25.8 L, MCHC 29.6 L, RDW Std Deviation 59.7 H, RDW Coeff of Johanna 18.7 H, Plt Count 189, MPV 10.0, Immature Gran % (Auto) [employer] OPERATOR, Neut % (Auto) [employer] OPERATOR, Lymph % (Auto) SECUR[employer] C[employer] OPERATOR, Swain % (Auto) SECUR[employer] C[employer] OPERATOR, Eos % (Auto) [employer] OPERATOR, Baso % (Auto) [employer] C[employer] OPERATOR, Absolute Neuts (auto) 12.9 H, Absolute Lymphs (auto) 1.51, Total Counted 100, Neutrophils % (Manual) 82 H, Band Neutrophils % 3, Lymphocytes % (Manual) 10 L, Metamyelocytes % 4 H, Myelocytes % 1 H, Nucleated RBC % [employer] OPERATOR, Nucleated RBCs/100 WBC 4, Diff Path Review May , Platelet Estimate ADEQUATE, RBC Morphology N CHROM, Anisocytosis RARE 04/20/21 20:18: PT 18.5 H, INR 1.6, APTT 41.1 H 04/20/21 20:18: Sodium 136, Potassium 6.0 H*, Chloride 99, Carbon Dioxide 28.0, Anion Gap 9, BUN 62 H, Creatinine 2.51 H, Estim Creat Clear Calc 26.70, Est GFR (MDRD) Af Amer 33 L, Est GFR (MDRD) Non-Af 27 L, BUN/Creatinine Ratio 24.7 H, Glucose 227 H, Calcium 8.8, Total Bilirubin 0.40, AST 269 H, ALT 480 H, Alkaline Phosphatase 115, Troponin I High Sens 14, Total Protein 7.0, Albumin 2.4 L, Globulin 4.6 H, Albumin/Globulin Ratio 0.5 L 04/20/21 20:18: Lactic Acid 9.1 H* 04/20/21 20:18: B-Natriuretic Peptide 1093.2 H 04/20/21 22:32: Procalcitonin 0.16 H 04/20/21 22:32: Potassium 4.4 04/20/21 22:52: Total Creatine Kinase 136, Triglycerides 91 04/21/21 00:55: WBC 13.4 H, RBC 3.69 L, Hgb 9.6 L, Hct 31.3 L, MCV 84.8, MCH 26.0 L, MCHC 30.7 L, RDW Std Deviation 57.2 H, RDW Coeff of Johanna 18.6 H, Plt Count 152, MPV 9.7, Immature Gran % (Auto) 1.000 H, Neut % (Auto) 88.9 H, Lymph % (Auto) 3.6 L, Swain % (Auto) 6.4, Eos % (Auto) 0.0, Baso % (Auto) 0.1, Absolute Neuts (auto) 11.9 H, Absolute Lymphs (auto) 0.48 L, Nucleated RBC % 2.8 04/21/21 00:55: Sodium 138, Potassium 5.7 H, Chloride 103, Carbon Dioxide 27.0, Anion Gap 8, BUN 58 H, Creatinine 2.05 H, Estim Creat Clear Calc 31.55, Est GFR (MDRD) Af Amer 42 L, Est GFR (MDRD) Non-Af 35 L, BUN/Creatinine Ratio 28.3 H, Glucose 202 H, Calcium 8.5, Total Bilirubin 0.50, AST 242 H, ALT 429 H, Alkaline Phosphatase 99, Total Protein 6.4, Albumin 2.2 L, Globulin 4.2, Albumin/Globulin Ratio 0.5 L 04/21/21 00:55: Troponin I High Sens 23 04/21/21 01:00: Lactic Acid 2.9 H* 04/21/21 01:44: POC Glucose 213 H 04/21/21 01:45: MRSA (PCR) POSITIVE H 04/21/21 04:15: Sodium 138, Potassium 4.5, Chloride 103, Carbon Dioxide 29.0, Anion Gap 6, BUN 53 H, Creatinine 1.93 H, Estim Creat Clear Calc 33.52, Est GFR (MDRD) Af Amer 45 L, Est GFR (MDRD) Non-Af 37 L, BUN/Creatinine Ratio 27.5 H, Glucose 187 H, Calcium 9.1, Total Bilirubin 0.60, AST 212 H, ALT 407 H, Alkaline Phosphatase 96, Total Protein 6.2 L, Albumin 2.1 L, Globulin 4.1, Albumin/Globulin Ratio 0.5 L 04/21/21 06:13: POC Glucose 155 H ABG Data ABG results: ABG 04/20/21 04/21/21 04/21/21 20:30 01:00 06:58 Specimen Type ART LILIAN ART Sample Site R Radial R Radial R Radial pH 7.15 L* 7.46 H Bicarbonate Actual 27.3 H 26.8 H Total CO2 30 28 Base Excess -2 3 H O2 Saturation 100 H 86 L O2 % 100 35 ABG pCO2 77.9 H* 37.4 ABG pO2 220 H 49 L Frederick Test N/A Positive VBG pH 7.37 VBG pO2 45 H VBG HCO3 28 H VBG Total CO2 30 VBG O2 Sat (Calc) 79 H VBG Base Excess 3 POC Mix VBG pCO2 Pt Tmp 48.4 Respiration Rate 16 16 16 O2 Delivery Device Adult Vent Adult Vent Adult Vent Vent Mode AC AC Tidal Volume 500 500 POC PEEP 5 5 5 Crit Call To/Read Back Yes Blood Gas Notified Whom Dr. Valladares Radiography Diagnostic Testing: Radiology Impression Chest X-Ray 04/20/21 20:51 IMPRESSION: Endotracheal tube tip is in the midthoracic trachea. Enteric tube is within the stomach. Findings suggest CHF/pulmonary edema. Superimposed pneumonia should be excluded clinically. Electronically Signed: Boubacar Finn MD at 21:38 EST , Brain CT 04/20/21 21:43 IMPRESSION: No CT evidence of acute intracranial process. Senescent changes and atherosclerosis. Individualized dose optimization techniques were used for this CT. at 0054 Reported and signed by: Rafa Garcia MD Electronically Signed: Rafa Garcia MD at 0:53 EST , Chest X-Ray 04/20/21 22:45 IMPRESSION: Interval placement of left subclavian central venous catheter with tip in the left brachiocephalic vein. No other changes. Electronically Signed: Kvng Lucio MD at 23:40 EST , Physical Exam Narrative GENERAL: Unresponsive on the vent HEENT: Atraumatic; EYES; Anicteric, Normal Conjunctiva NECK; supple, normal thyroid, RESPIRATORY: Diminished to auscultation CARDIOVASCULAR: Regular S1 S2, GI: soft, normoactive bowel sounds, : No Renal angle tenderness; EXTREMITIES: No edema, no clubbing, MUSCULOSKELETAL: no muscle wasting NEURO: Unresponsive on the vent SKIN: Significant excoriation in the perineum Assessment & Plan Assessment/Plan (1) Cardiopulmonary arrest with successful resuscitation: PLAN: Patient is a 66-year-old gentleman with significant comorbidities including GBS with subsequent significant debility with chronic excoriations and wounds involving the perineum who was brought in after found patient unresponsive. EMS upon arrival found patient to be in PEA successfully resuscitated with ROSC. He apparently lost pulse in route to the ED and CPR had to be initiated found to be in wide-complex tachycardia and was subsequently resuscitated with ROSC is intubated and admitted to the intensive care unit. 1. Acute cardiopulmonary arrest ?Patient was successfully resuscitated using ACLS protocol with ROSC S. Subsequently left on the vent. Etiology of patient acute cardiopulmonary arrest not clear at this point. Consult was placed to cardiology. 2. Acute hypoxic respiratory failure ?Secondary to above patient had to be intubated and admitted to the intensive care unit with consultation placed to gluer machine setup operator. 3. Suspected pneumonia ?Chest x-ray obtained demonstrated patchy bibasilar opacities. Patient was started on Zosyn and vancomycin 4. Metabolic encephalopathy ?Patient was exhibiting signs of anoxic brain injury with myoclonic episodes. Underwent EEG 5. Acute kidney injury ?Superimposed on chronic kidney disease stage III, monitoring BMP 6. 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 Sacral decubitus ulcer With significant perinea excoriation. Consult placed wound care nurse 8. Right lower extremity skin ulceration ?Appears to be healing 9. Diabetes mellitus type II -With complications including diabetic nephropathy; patient on Accu-Cheks every 6 with coverage 10. Chronic kidney disease stage IIIb ?Secondary to diabetic nephropathy patient presented with impaired kidney function management as discussed above 11. Essential hypertension ?Antihypertensives on hold 12. Class III obesity with BMI of 41.8 ?Complicating care 13. Obstructive sleep apnea ?Patient was on CPAP at night prior to his admission 14. COPD Per history 15. DVT prophylaxis ?SC heparin Charges/Coding Visit Charges Inpatient E&M: 15882 Subs Hosp L3
--- NOTE | 2021-04-21 08:36 | CON.PCM.CA_ITS ---
Assessment & Plan Assessment/Plan (1) Cardiopulmonary arrest with successful resuscitation: PLAN: The patient appears to have experienced 2 cardiopulmonary arrest events. It appears his events may have been somewhat prolonged with respect to regaining ROSC. The patient is currently in the ICU mechanically intubated and ventilated. The patient does not appear to respond appropriately to verbal stimulation. The patient has been reported as having nonpurposeful movements/myoclonic jerking movements. The patient's examination has demonstrated the pupils to be appearing fixed and dilated. The patient spontaneous weaning trial demonstrated no spontaneous respirations per the ICU staff. The patient has been undergoing further neurologic evaluation with EEG that has recently been completed and results are pending. Overall, based upon the information above, there is significant concern of the patient experiencing hypoxic/anoxic encephalopathy which would unfortunately lead to a poor prognosis. In the interim, from a cardiovascular standpoint, the patient's has demonstrated a continued sinus rhythm/sinus tachycardia and episodes appearing compatible with his history of PSVT with spontaneous resolution back to sinus rhythm/sinus tachycardia. He has also not been reported as hypotensive in the ICU. His cardiac enzymes have remained negative and his ECG demonstrated no acute electrocardiographic changes. He is pending further cardiovascular evaluation with a transthoracic echocardiogram to reassess his left ventricular wall motion and systolic function. He is receiving supportive therapy as needed. (2) SVT (supraventricular tachycardia): PLAN: The patient had a history of PSVT. He has demonstrated recurrent episodes appearing compatible with this. The patient can receive additional medical therapy and attempt to assist with his PSVT which could include agents such as IV beta-blockers or IV calcium channel antagonist as needed. (3) Hyperlipidemia: QUALIFIERS: Hyperlipidemia type: unspecified Qualified Code(s): E78.5 - Hyperlipidemia, unspecified PLAN: The patient has a history of hyperlipidemia. The patient can continue evaluation care as deemed appropriate as his clinical course progresses. (4) Hypertension: PLAN: The patient does have a history of hypertension. His blood pressures both systolic and diastolic have been noted to be elevated. He can receive supportive antihypertensive therapy as needed during his ongoing evaluation and care. (5) Thoracic aortic aneurysm without rupture: PLAN: The patient has a history of a descending thoracic aortic aneurysm/dissection which was evaluated by chest CTA on 11-08-2018. At that point time per the radiology report it was listed as stable. Addt'l Comments Overall, from a cardiovascular standpoint, based upon the aforementioned information obtained, especially with respect to concerns of his neurologic status, there is concerned that the patient's prognosis appears to be poor. From a cardiac standpoint he can receive supportive therapy for his cardiovascular conditions such as PSVT and hypertension as deemed appropriate. In the interim an echocardiogram was requested to reassess his left ventricular wall motion systolic function. The patient's case was discussed and reviewed with Dr. Ruth of the pul monology/ICU staff as well as the patient's primary physician relations manager Dr. Riley. Dr. Ruth states he will be having a conversation with the patient's family members this day to assist in deciding further evaluation and care options. This note was generated using a voice recognition system and there may be incorrect words, spelling or punctuation that were not noted when reviewing the office note prior to saving. HPI Consult Data Date of Consult: 04/21/21 HPI Narrative HPI Narrative: PRECIOUS CHI, is a 66 male who presents for cardiovascular sedation based upon a cardiopulmonary arrest superimposed upon a history of underlying PSVT, hyperlipidemia, hypertension, chronic diastolic mediated CHF, DVT/PE status post IVC filter placement, COPD, ADELAIDE, secondary pulmonary hypertension, thoracic aortic aneurysm (without rupture), chronic renal insuffic iency, anemia, skin breakdown and decubitus ulcers, and morbid obesity. The patient is currently in the ICU mechanically intubated/ventilated, thus, the information obtained was from the medical records, the ICU staff, Dr. Castro of the [facility] staff, and Dr. Ruth of the [facility] pulmonology/critical care staff. According to the above, it appears the patient was reported by his family as being unresponsive with no spontaneous respirations or pulse for approximately 10 to 15 minutes prior to EMS arrival. The patient received BLS/ACLS protocol with eventual demonstration of PEA and eventual ROSC. The patient was also reported as receiving IV Narcan based upon the patient having chronic pain management, with no response. The patient was transported to the [facility] ED were he reported to have recurrent cardiopulmonary arrest and again received BLS/ACLS protocol. The patient was noted to once again achieve ROSC. He was mechanically intubated/ventilated and subsequently transferred to the ICU for further evaluation and care. Since being in the ICU the patient has been reported as having no appropriate response to verbal stimuli. He has been reported as having nonpurposeful movements/myoclonic jerking activity. He was reported as undergoing an attempt at a weaning trial this morning with a report of no spontaneous respirations. His cardiac enzymes have remained negative. His ECG available for review appeared to demonstrate sinus tachycardia with left axis deviation low voltage QRS with poor R wave progression with septal SC pattern of indeterminate age cannot be excluded and inferior my pattern of indeterminate age cannot be excluded. His cardiac rhythm has demonstrated episodes of sinus rhythm/sinus tachycardia and episodes appearing compatible with PSVT. His blood pressures have noted to be elevated at times with respect to both systolic and diastolic blood pressures. An EEG was being completed at the time of cardiovascular evaluation. An echocardiogram is pending at this time. [facility] Medical History Acute respiratory failure with hypoxia and hypercapnia Anemia Arthritis aspiration of left knee Bilateral pulmonary infiltrates on CXR BPH (benign prostatic hyperplasia) Bradycardia Cardiology follow-up encounter Chronic cutaneous venous stasis ulcer Chronic diastolic (congestive) heart failure Chronic kidney disease, stage 3 Chronic pain Chronic respiratory failure Chronic venous insufficiency Chronic venous stasis dermatitis COPD (chronic obstructive pulmonary disease) Debility Decubitus ulcer Diabetes Disability of walking Essential (primary) hypertension Excoriation of multiple sites (~07/2020) Former smoker Generalized weakness GERD (gastroesophageal reflux disease) Glaucoma 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 History of CHF (congestive heart failure) History of edema History of GI bleed History of renal disease History of ulceration Hx of cataract Hyperlipidemia Hypertension Kidney stones Lip swelling Low testosterone in male Lower extremity weakness Morbid obesity MRSA (methicillin resistant Staphylococcus aureus) infection Non-healing ulcer of multiple sites, limited to breakdown of skin Normocytic anemia Obesity ADELAIDE (obstructive sleep apnea) Osteoarthritis Pressure ulcer Pseudomonas aeruginosa infection Secondary pulmonary arterial hypertension Shortness of breath Shortness of breath on exertion Sleep apnea Stage 2 moderate COPD by GOLD classification Thoracic aortic aneurysm without rupture Tobacco use Type 2 diabetes mellitus Ulcer of right lower extremity Wears glasses Home Medications brimonidine 0.2 % eye drops 1 drp OPHTHALMIC BID ml 05/04/18 [History Last Taken Unknown] dorzolamide 2 %-timolol 0.5 % (PF) eye drops 1 drp OPHTHALMIC BID 05/04/18 [History Last Taken Unknown] omeprazole 20 mg capsule,delayed release 20 mg PO DAILY 05/04/18 [History Last Taken Unknown] tamsulosin 0.4 mg capsule 0.4 mg PO DAILY@0800 05/30/18 [History Last Taken Unknown] latanoprost 0.005 % eye drops 1 drp OPHTHALMIC QPM 09/06/18 [History Last Taken Unknown] oxygen 2 l MISCELLANEOUS 12/06/18 [History Last Taken Unknown] cholecalciferol (vitamin D3) 1,250 mcg (50,000 unit) tablet 50,000 unit PO QWEEK #10 tab 02/04/19 [Rx Last Taken Unknown] Lift Chair #1 ea 07/03/20 [Rx Last Taken Unknown] furosemide 40 mg tablet 40 mg PO BID #180 tab 08/07/20 [Rx Last Taken Unknown] L.acid,casei,plant,saliv-B.ani [Probiotic Formula] 1 cap PO BID 12/20/20 [History Last Taken Unknown] albuterol sulfate 2.5 mg INHALATION Q6H PRN PRN 12/20/20 [History Last Taken Unknown] budesonide 0.5 mg INHALATION BID 12/20/20 [History Last Taken Unknown] diphenhydramine HCl 25 mg PO Q4H PRN 12/20/20 [History Last Taken Unknown] docusate sodium 100 mg PO BID 12/20/20 [History Last Taken Unknown] fluticasone propion-salmeterol [Wixela Inhub] 1 inh INHALATION BID 12/20/20 [History Last Taken Unknown] loratadine 10 mg PO DAILY@0800 12/20/20 [History Last Taken Unknown] montelukast 10 mg PO QHS 12/20/20 [History Last Taken Unknown] multivitamin,sz-jorz-Au-FA-min [Multivitamin And Mineral] 1 tab PO DAILY@0800 12/20/20 [History Last Taken Unknown] pramoxine-mineral oil-zinc [Anusol] 1 ea TOPICAL TID PRN PRN 12/20/20 [History Last Taken Unknown] sertraline 25 mg PO DAILY@0800 12/20/20 [History Last Taken Unknown] tiotropium bromide [Spiriva Respimat] 2 puff INHALATION DAILY 12/20/20 [History Last Taken Unknown] bacitracin zinc 1 applic TOPICAL BID #0 g 01/21/21 [Rx Last Taken Unknown] hydrocortisone acetate [Anucort-HC] 25 mg MD DAILY PRN PRN 30 Days #30 ea 01/21/21 [Rx Last Taken Unknown] nystatin [Nyamyc] 1 applic TOPICAL BID #0 g 01/21/21 [Rx Last Taken Unknown] white petrolatum [Aquaphor Healing] 1 applic TOPICAL DAILY PRN PRN #0 g 01/21/21 [Rx Last Taken Unknown] metoprolol tartrate 50 mg tablet 75 mg PO BID #90 tab 03/09/21 [Rx Last Taken Unknown] oxycodone-acetaminophen 5 mg-325 mg tablet 1 tab PO Q6H PRN 7 Days #28 tab 04/14/21 [Rx Last Taken Unknown] alogliptin 12.5 mg PO DAILY 04/20/21 [History Last Taken Unknown] carvedilol 3.125 mg PO BID 04/20/21 [History Last Taken Unknown] mometasone-formoterol [Dulera] 1 puff INHALATION BID 04/20/21 [History Last Taken Unknown] timolol maleate 1 drp EACH EYE BID 04/20/21 [History Last Taken Unknown] guaifenesin [Robitussin] 200 mg PO Q4H 04/21/21 [History Last Taken Unknown] Allergy/AdvReac Type Severity Reaction Status Date / Time lisinopril Allergy Severe Angioedema Verified 04/20/21 20:14 Sulfa (Sulfonamide AdvReac Other Verified 04/20/21 20:14 Antibiotics) chapstick Allergy swelling Uncoded 04/20/21 20:14 Family History Father Cancer Mother Asthma Surgical History History of carpal tunnel surgery of right wrist History of cataract extraction Social History household members: spouse Smoking Status: Former smoker second hand exposure: No alcohol intake: current alcohol intake frequency: a few times a week substance use type: does not use caffeine: No what type of physical activity do you participate in: none ROS Review of Systems ROS Unobtainable: due to mental condition Physical Exam HEENT normocephalic and head/scalp atraumatic Eyes Eyes Narrative: Pupils: Appear to be fixed and dilated Resp Auscultation: rhonchi throughout (Scattered) Cardio regular rate, regular rhythm, S1 normal heart sound and S2 normal heart sound GI normal to inspection, nondistended, normoactive bowel sounds Extremity no pedal edema Risk Stratification Risk Stratification Applicable: Yes Age >/= 65: Yes >/= 3 CAD Risk Factors (HTN, HLD, DM, family hx of CAD, or current smoker): Yes Aspirin Use in the Past 7 Days: No Severe Angina (>/= episodes in 24 hours): No EKG ST Changes >/= 0.5mm: No Positive Cardiac Marker: No STANISLAW Risk Stratification Score: 2 STANISLAW % Risk: 8% Risk Objective Data Vital Signs: Vital Signs Temp Pulse Resp BP Pulse Ox 95.2 F L 70 16 145/94 H 92 04/21/21 07:00 04/21/21 07:00 04/21/21 07:00 04/21/21 07:00 04/21/21 07:00 Oxygen Flow Rate (L/min) 100 Oxygen Delivery Method Mechanical Ventilator Weight: 266 lb 8.622 oz Body Mass Index (BMI) 41.8 Intake & Output: Intake and Output for Last 24 Hours 04/19/21 04/20/21 04/21/21 23:59 23:59 23:59 Intake Total 4305 / 4305 1641.43 / 1641.43 Output Total 550 / 550 Balance 4305 / 4305 1091.43 / 1091.43 Lab / Micro Data Result Diagrams: 04/21/21 00:55 04/21/21 04:15 Labs: Laboratory Results - last 24 hr 04/20/21 20:10: POC Glucose 172 H 04/20/21 20:18: WBC 15.1 H, RBC 3.91 L, Hgb 10.1 L, Hct 34.1 L, MCV 87.2, MCH 25.8 L, MCHC 29.6 L, RDW Std Deviation 59.7 H, RDW Coeff of Johanna 18.7 H, Plt Count 189, MPV 10.0, Immature Gran % (Auto) BASKET TURNER, Neut % (Auto) BASKET TURNER, Lymph % (Auto) BASKET TURNER, [place] % (Auto) BASKET TURNER, Eos % (Auto) BASKET TURNER, Baso % (Auto) BASKET TURNER, Absolute Neuts (auto) 12.9 H, Absolute Lymphs (auto) 1.51, Total Counted 100, Neutrophils % (Manual) 82 H, Band Neutrophils % 3, Lymphocytes % (Manual) 10 L, Metamyelocytes % 4 H, Myelocytes % 1 H, Nucleated RBC % BASKET TURNER, Nucleated RBCs/100 WBC 4, Diff Path Review July, Platelet Estimate ADEQUATE, RBC Morphology N CHROM, Anisocytosis RARE 04/20/21 20:18: PT 18.5 H, INR 1.6, APTT 41.1 H 04/20/21 20:18: Sodium 136, Potassium 6.0 H*, Chloride 99, Carbon Dioxide 28.0, Anion Gap 9, BUN 62 H, Creatinine 2.51 H, Estim Creat Clear Calc 26.70, Est GFR (MDRD) Af Amer 33 L, Est GFR (MDRD) Non-Af 27 L, BUN/Creatinine Ratio 24.7 H, Glucose 227 H, Calcium 8.8, Total Bilirubin 0.40, AST 269 H, ALT 480 H, Alkaline Phosphatase 115, Troponin I High Sens 14, Total Protein 7.0, Albumin 2.4 L, Globulin 4.6 H, Albumin/Globulin Ratio 0.5 L 04/20/21 20:18: Lactic Acid 9.1 H* 04/20/21 20:18: B-Natriuretic Peptide 1093.2 H 04/20/21 22:32: Procalcitonin 0.16 H 04/20/21 22:32: Potassium 4.4 04/20/21 22:52: Total Creatine Kinase 136, Triglycerides 91 04/21/21 00:55: WBC 13.4 H, RBC 3.69 L, Hgb 9.6 L, Hct 31.3 L, MCV 84.8, MCH 26.0 L, MCHC 30.7 L, RDW Std Deviation 57.2 H, RDW Coeff of Johanna 18.6 H, Plt Count 152, MPV 9.7, Immature Gran % (Auto) 1.000 H, Neut % (Auto) 88.9 H, Lymph % (Auto) 3.6 L, Dakota % (Auto) 6.4, Eos % (Auto) 0.0, Baso % (Auto) 0.1, Absolute Neuts (auto) 11.9 H, Absolute Lymphs (auto) 0.48 L, Nucleated RBC % 2.8 04/21/21 00:55: Sodium 138, Potassium 5.7 H, Chloride 103, Carbon Dioxide 27.0, Anion Gap 8, BUN 58 H, Creatinine 2.05 H, Estim Creat Clear Calc 31.55, Est GFR (MDRD) Af Amer 42 L, Est GFR (MDRD) Non-Af 35 L, BUN/Creatinine Ratio 28.3 H, Glucose 202 H, Calcium 8.5, Total Bilirubin 0.50, AST 242 H, ALT 429 H, Alkaline Phosphatase 99, Total Protein 6.4, Albumin 2.2 L, Globulin 4.2, Albumin/Globulin Ratio 0.5 L 04/21/21 00:55: Troponin I High Sens 23 04/21/21 01:00: Lactic Acid 2.9 H* 04/21/21 01:44: POC Glucose 213 H 04/21/21 01:45: MRSA (PCR) POSITIVE H 04/21/21 04:15: Sodium 138, Potassium 4.5, Chloride 103, Carbon Dioxide 29.0, Anion Gap 6, BUN 53 H, Creatinine 1.93 H, Estim Creat Clear Calc 33.52, Est GFR (MDRD) Af Amer 45 L, Est GFR (MDRD) Non-Af 37 L, BUN/Creatinine Ratio 27.5 H, Glucose 187 H, Calcium 9.1, Total Bilirubin 0.60, AST 212 H, ALT 407 H, Alkaline Phosphatase 96, Total Protein 6.2 L, Albumin 2.1 L, Globulin 4.1, Alb umin/Globulin Ratio 0.5 L 04/21/21 06:13: POC Glucose 155 H ABG Data ABG results: ABG 04/20/21 04/21/21 04/21/21 20:30 01:00 06:58 Specimen Type ART LILIAN ART Sample Site R Radial R Radial R Radial pH 7.15 L* 7.46 H Bicarbonate Actual 27.3 H 26.8 H Total CO2 30 28 Base Excess -2 3 H O2 Saturation 100 H 86 L O2 % 100 35 ABG pCO2 77.9 H* 37.4 ABG pO2 220 H 49 L Frederick Test N/A Positive VBG pH 7.37 VBG pO2 45 H VBG HCO3 28 H VBG Total CO2 30 VBG O2 Sat (Calc) 79 H VBG Base Excess 3 POC Mix VBG pCO2 Pt Tmp 48.4 Respiration Rate 16 16 16 O2 Delivery Device Adult Vent Adult Vent Adult Vent Vent Mode AC AC Tidal Volume 500 500 POC PEEP 5 5 5 Crit Call To/Read Back Yes Blood Gas Notified Whom Dr. Valladares Cardiology Labs/Tests 04/20/21 20:18: WBC 15.1 H, RBC 3.91 L, Hgb 10.1 L, Hct 34.1 L, MCV 87.2, MCH 25.8 L, MCHC 29.6 L, Plt Count 189, MPV 10.0, Immature Gran % (Auto) BASKET TURNER, Neut % (Auto) BASKET TURNER, Lymph % (Auto) BASKET TURNER, [place] % (Auto) BASKET TURNER, Eos % (Auto) BASKET TURNER, Baso % (Auto) BASKET TURNER, Absolute Neuts (auto) 12.9 H, Total Counted 100, Neutrophils % (Manual) 82 H , Band Neutrophils % 3, Lymphocytes % (Manual) 10 L, Metamyelocytes % 4 H, My elocytes % 1 H, Nucleated RBC % BASKET TURNER 04/20/21 20:18: PT 18.5 H, INR 1.6, APTT 41.1 H 04/20/21 20:18: Sodium 136, Potassium 6.0 H*, Chloride 99, Carbon Dioxide 28.0, Anion Gap 9, BUN 62 H, Creatinine 2.51 H, Est GFR (MDRD) Af Amer 33 L, Est GFR (MDRD) Non-Af 27 L, BUN/Creatinine Ratio 24.7 H, Glucose 227 H, Calcium 8.8, Total Bilirubin 0.40 04/20/21 20:18: Lactic Acid 9.1 H* 04/20/21 20:18: B-Natriuretic Peptide 1093.2 H 04/20/21 20:30: pH 7.15 L*, Bicarbonate Actual 27.3 H, Base Excess -2, O2 Satu ration 100 H, ABG pCO2 77.9 H*, ABG pO2 220 H, Frederick Test N/A 04/20/21 22:32: Potassium 4.4 04/20/21 22:52: Triglycerides 91 04/21/21 00:55: WBC 13.4 H, RBC 3.69 L, Hgb 9.6 L, Hct 31.3 L, MCV 84.8, MCH 26.0 L, MCHC 30.7 L, Plt Count 152, MPV 9.7, Immature Gran % (Auto) 1.000 H, Neut % (Auto) 88.9 H, Lymph % (Auto) 3.6 L, [place] % (Auto) 6.4, Eos % (Auto) 0.0, Baso % (Auto) 0.1, Absolute Neuts (auto) 11.9 H, Nucleated RBC % 2.8 04/21/21 00:55: Sodium 138, Potassium 5.7 H, Chloride 103, Carbon Dioxide 27.0, Anion Gap 8, BUN 58 H, Creatinine 2.05 H, Est GFR (MDRD) Af Amer 42 L, Est GFR (MDRD) Non-Af 35 L, BUN/Creatinine Ratio 28.3 H, Glucose 202 H, Calcium 8.5, Total Bilirubin 0.50 04/21/21 01:00: Lactic Acid 2.9 H* 04/21/21 01:00: VBG pH 7.37, VBG pO2 45 H, VBG HCO3 28 H, VBG O2 Sat (Calc) 79 H , VBG Base Excess 3 04/21/21 04:15: Sodium 138, Potassium 4.5, Chloride 103, Carbon Dioxide 29.0, Anion Gap 6, BUN 53 H, Creatinine 1.93 H, Est GFR (MDRD) Af Amer 45 L, Est GFR (MDRD) Non-Af 37 L, BUN/Creatinine Ratio 27.5 H, Glucose 187 H, Calcium 9.1, Total Bilirubin 0.60 04/21/21 06:58: pH 7.46 H, Bicarbonate Actual 26.8 H, Base Excess 3 H, O2 Saturation 86 L, ABG pCO2 37.4, ABG pO2 49 L, Frederick Test Positive Rhythm: Sinus rhythm/sinus tachycardia/PSVT EKG: As noted above ECHO: 11-09-2018 Interpretation Summary The study was technically difficult. Contrast injection was performed. Based upon the 2D echocardiographic and contrast enhanced views there appears to be grossly normal left ventricular size, wall motion, and systolic function. The estimated ejection fraction is 65 %. The left atrium is mildly enlarged. There is mild mitral annular calcification. Extension of the mitral annular calcification onto the posterior mitral valve leaflet. Trivial mitral valve insufficiency. Trivial tricuspid valve insufficiency. Borderline enlarged aortic root. Right ventricular systolic pressure estimated to be 31 mmHg. Diastolic function is indeterminate. Radiography Diagnostic Testing: Radiology Impression Chest X-Ray 04/20/21 20:51 IMPRESSION: Endotracheal tube tip is in the midthoracic trachea. Enteric tube is within the stomach. Findings suggest CHF/pulmonary edema. Superimposed pneumonia should be excluded clinically. Electronically Signed: Boubacar Finn MD at 21:38 EST , Brain CT 04/20/21 21:43 IMPRESSION: No CT evidence of acute intracranial process. Senescent changes and atherosclerosis. Individualized dose optimization techniques were used for this CT. at 0054 Reported and signed by: Rafa Garcia MD Electronically Signed: Rafa Garcia MD at 0:53 EST , Chest X-Ray 04/20/21 22:45 IMPRESSION: Interval placement of left subclavian central venous catheter with tip in the left brachiocephalic vein. No other changes. Electronically Signed: Kvng Lucio MD at 23:40 EST ,
--- NOTE | 2021-04-21 08:49 | NURSING ---
Unable to complete CAM due to neuro status and RASS of -5.
--- NOTE | 2021-04-21 09:31 | CASEMGMT ---
Social Work SW attended ICU rounds. After rounds, phone call placed to pt and family meeting scheduled for 1:00 today. Mrs. Burnette indicates her son and daughter will be accompanying her. Dr. Ruth and bedside nurse promise. SCOTT Ambriz
[2021-04-21] MEDS: LORazepam 2 MG/ML Syringe IV (09:52)
[2021-04-21] MEDS: Metoprolol Tartrate 5 MG/5 ML Vial IV ×3 (10:34→23:36)
[2021-04-21 12:10] LABS: Bedside Glucose 123 mg/dL (70-110)
[2021-04-21 13:52] LABS: Pathologist Review Reviewed
[2021-04-21] MEDS: Digoxin 250 MCG/ML Ampul 500 MCG IV (15:24)
--- NOTE | 2021-04-21 15:31 | CHAPLAIN ---
Type of Pastoral Visit _x__ Initial Visit ___ Follow-up Visit ___ On-call Visit ___ General Patient Visit ___ Spiritual Assessment ___ Family Conference ___ Bereavement ___ Rapid Response ___ Code Blue ___ Other (describe below) Pastoral Care Referral From ___ Patient ___ Family _x__ Nurse ___ Physician ___ Front Desk Manager ___ Trial Consultant ___ Other (describe below) Sacrament/Intervention ___ Active listening ___ Anointing ___ Sabianism ___ Bereavement ___ Communion ___ Monique exploration ___ ___ Life review _x__ Prayer ___ Reconciliation ___ Sacrament of Sick _x__ Supportive presence ___ Wedding ___ Other (describe below) Pastoral Comments met with family members in the room after DR had met with them; patient is nonresponsive; offer of support to family members who are pleasant but mostly quiet; offer of prayer and spouse welcomes such; offer of continuing support given as desired and family acknowledges the same
[2021-04-21 18:01] LABS: Bedside Glucose 112 mg/dL (70-110)
[2021-04-22] VITALS (37 sets, daily range): BP systolic 90–161; BP diastolic 70–105; PULSE 75–172; RESP 16–32; TEMP 37.2–38.2; O2SAT 94–98
[2021-04-22 00:35] LABS: Bedside Glucose 85 mg/dL (70-110)
[2021-04-22] MEDS: Metoprolol Tartrate 5 MG/5 ML Vial IV ×5 (05:41→22:42)
[2021-04-22 05:56] LABS: Bedside Glucose 98 mg/dL (70-110)
--- NOTE | 2021-04-22 07:12 | PN.CC_ITS ---
Assessment & Plan Assessment/Plan (1) Cardiopulmonary arrest with successful resuscitation: PLAN: RECOMMENDATIONS: 1. Continue current supportive measures including invasive mechanical venti latory support. 2. Wean FiO2/PEEP for saturations greater than 90%. 3. Continue to hold all sedating medications. 4. Continue empiric antimicrobials, while awaiting finalized culture results. 5. Recheck CMP. 6. Continue appropriate ICU prophylaxis. IMPRESSIONS: 1. Acute on chronic respiratory failure status post out of hospital cardiac arrest The patient presented to the ED on April 20 following an out of hospital PEA cardiac arrest with successful ROSC. Approximately 20 minutes elapsed from onset of arrest to successful return of spontaneous circulation. As a consequence, it does appear that the patient has sustained some form of anoxic brain injury. In addition, the patient does have known obstructive lung disease and likely has an underlying pulmonary infectious etiology with staph aureus and Pseudomonas isolated from sputum. Accordingly, the patient will be continued on antimicrobials. He will also be continued on assist control mode of mechanical ventilation with FiO2 and PEEP weaned to maintain oxygen saturations at or above 90%. 2. Encephalopathy Likely secondary to anoxia sustained as a consequence of his cardiac arrest. We will continue current supportive measures as noted above. We will continue to hold sedating medications. Findings noted on EEG were consistent with anoxic b rain injury. 3. Acute on chronic kidney disease/acute liver injury Improving. Likely secondary to global hypoperfusion in the setting of cardiac arrest. Anticipate improvement in organ function with stabilization of hemodynamics. Continue to monitor urine output. No current indication for renal replacement therapy. 4. History of chronic wounds Continue local wound care. 5. History of SVT/chronic pain syndrome/morbid obesity/heart failure with preserved ejection fraction/ADELAIDE/COPD Complicates care, management, recovery and prognosis. Continue supportive measures as noted above. Hold on tube feeds for now. TIME: 34 minutes of critical care time, independent of procedures, was spent add ressing the patient's acute on chronic respiratory failure status post cardiac arrest, encephalopathy, acute on chronic kidney disease, acute liver injury, review of all data and collaboration with the care team. Subjective Subjective The patient was seen and examined at the bedside this morning. Events from the last 24 hours have been reviewed. The patient is currently afebrile, hemodynamically stable and maintaining appropriate oxygen saturations on assist control mode of mechanical ventilation with an FiO2 requirement of 30% and PEEP of 5. The patient is currently documented to be overall net +5.1 L for the hos pitalization. The patient remains off of all forms of sedation. He did have some myoclonus overnight per nursing report. He remains on broad-spectrum antimicrobials along with scheduled Lopressor due to SVT. I did speak briefly with the patient's son this morning via telephone and updated him on his father's overall clinical state. He indicated to me that after a family discussion yesterday it is their intention to wait the full 72 hours before they make any final decisions regarding goals of care. Objective Data Objective Data The patient's most recent lab work, culture data and imaging studies have all been personally reviewed. Surface echocardiogram demonstrated an ejection fraction of 45%. Moderate RV dilation and moderate global RV systolic dysfunction was noted. Right ventricular systolic pressure was estimated to be 51 mmHg. Preliminary sputum culture is positive for staph aureus and Pseudomonas. Preliminary blood culture was positive for gram-positive cocci. Vital Signs: Vital Signs Temp Pulse Resp BP Pulse Ox 98.9 F 99 17 144/90 H 96 04/22/21 03:00 04/22/21 05:41 04/22/21 07:04 04/22/21 03:00 04/22/21 04:55 Oxygen Flow Rate (L/min) 100 Oxygen Delivery Method Mechanical Ventilator Weight: 120.3 kg Body Mass Index (BMI) 41.8 Intake & Output: Intake and Output for Last 24 Hours 04/20/21 04/21/21 04/22/21 23:59 23:59 23:59 Intake Total 4305 / 4305 2144.76 / 2164.76 180 / 180 Output Total 1020 / 1230 465 / 465 Balance 4305 / 4305 1124.76 / 934.76 -285 / -285 Lab / Micro Data Attestation: I reviewed the patient's lab results. Result Diagrams: 04/21/21 00:55 04/22/21 08:50 Labs: Laboratory Results - last 24 hr 04/20/21 20:18: Diff Path Review Reviewed 04/21/21 12:02: POC Glucose 123 H 04/21/21 17:49: POC Glucose 112 H 04/21/21 23:33: POC Glucose 85 04/22/21 05:40: POC Glucose 98 Micro: Microbiology 04/21/21 00:54 Sputum, Induced/Lukens Gram Stain - Final 04/20/21 22:46 Sputum, Tracheal Aspirate Gram Stain - Final 04/20/21 22:46 Sputum, Tracheal Aspirate Respiratory Culture - Preliminary Staphylococcus aureus GNR Poss Pseudomonas sp 04/20/21 21:29 Blood Culture (Wb) - Venous Blood Culture - Preliminary Radiography Diagnostic Testing: Radiology Impression Echocardiogram 04/21/21 00:56 Interpretation Summary The study was technically difficult. Contrast injection was performed. Based upon the 2D echocardiographic and contrast enhanced images obtained there appears to be grossly normal left ventricular size with mild global left ventricular systolic dysfunction. The estimated ejection fraction is 45 %. Based upon the 2D echocardiographic and contrast enhanced images obtained there appears to be moderate right ventricular dilatation with moderate global right ventricular systolic dysfunction. The left atrium is mildly enlarged. The right atrium is mildly enlarged. There is mild to moderate mitral annular calcification. Extension of the mitral annular calcification onto the base of the posterior mitral valve leaflet. Trivial mitral valve insufficiency. Mild tricuspid valve insufficiency. Moderate focal aortic valve calcification. Mildly dilated aortic root. Mild pulmonary artery dilation. Right ventricular systolic pressure estimated to be 51 mmHg c/w with pulmonary hypertension. There is evidence of diastolic dysfunction. Ordering Physician: Becka Castro Referring Physician: Alex Pedersen Performed By: Fariha Rodríugez, SIRISHA, RVT Physical Exam Const Constitutional Narrative: The patient remains comatose on the ventilator. No purposeful movement was noted. However, the patient is currently overbreathing the set rate on the ventilator and does initiate breath on spontaneous mode of mechanical ventilation. General Appearance: intubated and patient mechanically ventilated Exam Limitations: altered mental status Nutritional Appearance: morbidly obese HEENT normocephalic and head/scalp atraumatic Mouth: endotracheal tube in place and OG tube in place Eyes Eyes Narrative: There is now sluggish pupillary response bilaterally. Neck supple General: trachea midline and CVC in place Resp Resp Narrative: Breathing over set rate on the ventilator. Effort and Inspection: tachypneic Auscultation: diminished lung sounds; Negative for rales, rhonchi or wheezes Cardio S1 normal heart sound and S2 normal heart sound Rate: tachycardic GI normal to inspection, nondistended, normoactive bowel sounds Extremity no clubbing, cyanosis or edema Skin Wound Narrative: Multiple wounds scattered over lower extremities and perineum. Neuro Neuro Narrative: Comatose on ventilator. Charges/Coding Procedures Hospitalists Procedures: 43579 Critial Care 1st Hr
--- NOTE | 2021-04-22 07:17 | PCM.PN.HOSP ---
Subjective Subjective Patient remains on the vent without sedation. EEG obtained the day prior consistent with anoxic brain injury Objective Data Objective Data Vital Signs: Vital Signs Temp Pulse Resp BP Pulse Ox 98.9 F 99 17 144/90 H 96 04/22/21 03:00 04/22/21 05:41 04/22/21 07:04 04/22/21 03:00 04/22/21 04:55 Oxygen Flow Rate (L/min) 100 Oxygen Delivery Method Mechanical Ventilator Weight: 120.3 kg Body Mass Index (BMI) 41.8 Intake & Output: Intake and Output for Last 24 Hours 04/20/21 04/21/21 04/22/21 23:59 23:59 23:59 Intake Total 4305 / 4305 2144.76 / 2164.76 180 / 180 Output Total 1020 / 1230 465 / 465 Balance 4305 / 4305 1124.76 / 934.76 -285 / -285 Lab / Micro Data Result Diagrams: 04/21/21 00:55 04/22/21 08:50 Labs: Laboratory Results - last 24 hr 04/20/21 20:18: Diff Path Review Reviewed 04/21/21 12:02: POC Glucose 123 H 04/21/21 17:49: POC Glucose 112 H 04/21/21 23:33: POC Glucose 85 04/22/21 05:40: POC Glucose 98 Micro: Microbiology 04/21/21 00:54 Sputum, Induced/Lukens Gram Stain - Final 04/20/21 22:46 Sputum, Tracheal Aspirate Gram Stain - Final 04/20/21 22:46 Sputum, Tracheal Aspirate Respiratory Culture - Preliminary Staphylococcus aureus GNR Poss Pseudomonas sp 04/20/21 21:29 Blood Culture (Wb) - Venous Blood Culture - Preliminary Radiography Diagnostic Testing: Radiology Impression Echocardiogram 04/21/21 00:56 Interpretation Summary The study was technically difficult. Contrast injection was performed. Based upon the 2D echocardiographic and contrast enhanced images obtained there appears to be grossly normal left ventricular size with mild global left ventricular systolic dysfunction. The estimated ejection fraction is 45 %. Based upon the 2D echocardiographic and contrast enhanced images obtained there appears to be moderate right ventricular dilatation with moderate global right ventricular systolic dysfunction. The left atrium is mildly enlarged. The right atrium is mildly enlarged. There is mild to moderate mitral annular calcification. Extension of the mitral annular calcification onto the base of the posterior mitral valve leaflet. Trivial mitral valve insufficiency. Mild tricuspid valve insufficiency. Moderate focal aortic valve calcification. Mildly dilated aortic root. Mild pulmonary artery dilation. Right ventricular systolic pressure estimated to be 51 mmHg c/w with pulmonary hypertension. There is evidence of diastolic dysfunction. Ordering Physician: Becka Castro Referring Physician: Alex Pedersen Performed By: Farhia Rodríguez, SIRISHA, RVT Physical Exam Narrative GENERAL: Unresponsive on the vent HEENT: Atraumatic; EYES; Anicteric, Normal Conjunctiva NECK; supple, normal thyroid, RESPIRATORY: Diminished to auscultation CARDIOVASCULAR: Regular S1 S2, GI: soft, normoactive bowel sounds, : No Renal angle tenderness; EXTREMITIES: No edema, no clubbing, MUSCULOSKELETAL: no muscle wasting NEURO: Unresponsive on the vent SKIN: Significant excoriation in the perineum Assessment & Plan Assessment/Plan (1) Cardiopulmonary arrest with successful resuscitation: PLAN: Patient is a 66-year-old gentleman with significant comorbidities including GBS with subsequent significant debility with chronic excoriations and wounds involving the perineum who was brought in after found patient unresponsive. EMS upon arrival found patient to be in PEA successfully resuscitated with ROSC. He apparently lost pulse in route to the ED and CPR had to be initiated found to be in wide-complex tachycardia and was subsequently resuscitated with ROSC is intubated and admitted to the intensive care unit. 1. Acute cardiopulmonary arrest ?Patient was successfully resuscitated using ACLS protocol with ROSC S. Subsequently left on the vent. Etiology of patient acute cardiopulmonary arrest not clear at this point. Consult was placed to cardiology. 2. Acute hypoxic respiratory failure ?Secondary to above patient had to be intubated and admitted to the intensive care unit with consultation placed to diathermy equipment repairer. 3. Suspected pneumonia ?Chest x-ray obtained demonstrated patchy bibasilar opacities. Patient was started on Zosyn and vancomycin 4. Metabolic encephalopathy ?Patient was exhibiting signs of anoxic brain injury with myoclonic episodes. Underwent EEG -04/22/2021;Patient remains on the vent without sedation. EEG obtained the day prior consistent with anoxic brain injury 5. Acute kidney injury ?Superimposed on chronic kidney disease stage III, monitoring BMP 6. 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 Sacral decubitus ulcer With significant perinea excoriation. Consult placed wound care nurse 8. Right lower extremity skin ulceration ?Appears to be healing 9. Diabetes mellitus type II -With complications including diabetic nephropathy; patient on Accu-Cheks every 6 with coverage 10. Chronic kidney disease stage IIIb ?Secondary to diabetic nephropathy patient presented with impaired kidney function management as discussed above 11. Essential hypertension ?Antihypertensives on hold 12. Class III obesity with BMI of 41.8 ?Complicating care 13. Obstructive sleep apnea ?Patient was on CPAP at night prior to his admission 14. COPD Per history 15. DVT prophylaxis ?SC heparin Charges/Coding Visit Charges Inpatient E&M: 67163 Subs Hosp L3
[2021-04-22] MEDS: Chlorhexidine 15 ML PO ×2 (08:51→20:51)
[2021-04-22] MEDS: BRIMONIDINE 0.2% 5ML BOTTLE 1 DRP OPHTHALMIC ×2 (08:57→22:31)
[2021-04-22] MEDS: 0.9% Saline Lock 10 ML Syringe IV (08:58)
[2021-04-22] MEDS: Dorzolamide HCL/Timolol 10 ml Bottle 1 DRP OPHTHALMIC ×2 (08:59→22:31)
[2021-04-22] MEDS: fentaNYL 100 MCG/2 ML Ampul 50 MCG IV (09:05)
[2021-04-22 09:16] LABS: ALB/GLOB Ratio 0.5 RATIO (0.9-2.4); AST(SGOT) 163 U/L (15-37); Alanine Aminotransfer ALT/SGPT 336 U/L (16-61); Albumin, Serum 2.1 g/dL (3.2-5.0); Alkaline Phosphatase 100 U/L (45-117); Anion Gap 6 (5-15); BUN 49 mg/dL (7-18); BUN/Creat Ratio 27.8 RATIO (10-20); Calcium,Total 8.9 mg/dL (8.5-10.1); Chloride 108 mmol/L (98-107); Creatinine, Serum 1.76 mg/dL (0.70-1.30); EST Glomerular Filtration Rate 41 mL/min (>60); Est Glom Filt Rate - Afr Amer 50 mL/min (>60); Estimated Creatinine Clearance 36.75 ml/min; Globulin 4.3 g/dL (2.2-4.2); Glucose 89 mg/dL (74-106); Potassium 4.4 mmol/L (3.5-5.1); Protein, Total 6.4 g/dL (6.4-8.2); Sodium Level 142 mmol/L (136-145)
[2021-04-22] MEDS: Nystatin Powder 15gm Bottle 1 APPLIC TOPICAL ×2 (09:44→22:26)
--- NOTE | 2021-04-22 09:50 | WOUNDNOTE ---
wound photo: right lower leg (anterior view)
--- NOTE | 2021-04-22 09:51 | WOUNDNOTE ---
wound photo: right lower leg (lateral view)
--- NOTE | 2021-04-22 09:52 | WOUNDNOTE ---
wound photo: right lower leg (posteromedial view)
--- NOTE | 2021-04-22 09:52 | WOUNDNOTE ---
wound photo: right foot
--- NOTE | 2021-04-22 09:53 | WOUNDNOTE ---
wound photo: inferior surface of penis
--- NOTE | 2021-04-22 09:54 | WOUNDNOTE ---
wound photo: buttocks/scrotum
--- NOTE | 2021-04-22 09:59 | PN.CARD_ITS ---
Subjective Subjective The patient remains in the ICU mechanically intubated and ventilated. Objective Data Vital Signs: Vital Signs Temp Pulse Resp BP Pulse Ox 99.6 F H 168 H 17 105/86 H 95 04/22/21 07:00 04/22/21 07:00 04/22/21 07:04 04/22/21 07:00 04/22/21 07:00 Oxygen Flow Rate (L/min) 100 Oxygen Delivery Method Mechanical Ventilator Weight: 265 lb 3.457 oz Body Mass Index (BMI) 41.8 Intake & Output: Intake and Output for Last 24 Hours 04/20/21 04/21/21 04/22/21 23:59 23:59 23:59 Intake Total 4305 / 4305 2144.76 / 2164.76 180 / 180 Output Total 1020 / 1230 465 / 465 Balance 4305 / 4305 1124.76 / 934.76 -285 / -285 Lab / Micro Data Result Diagrams: 04/21/21 00:55 04/22/21 08:50 Labs: Laboratory Results - last 24 hr 04/20/21 20:18: Diff Path Review Reviewed 04/21/21 12:02: POC Glucose 123 H 04/21/21 17:49: POC Glucose 112 H 04/21/21 23:33: POC Glucose 85 04/22/21 05:40: POC Glucose 98 04/22/21 08:50: Sodium 142, Potassium 4.4, Chloride 108 H, Carbon Dioxide 28.0, Anion Gap 6, BUN 49 H, Creatinine 1.76 H, Estim Creat Clear Calc 36.75, Est GFR (MDRD) Af Amer 50 L, Est GFR (MDRD) Non-Af 41 L, BUN/Creatinine Ratio 27.8 H, Glucose 89, Calcium 8.9, Total Bilirubin 0.90, AST 163 H, ALT 336 H, Alkaline Phosphatase 100, Total Protein 6.4, Albumin 2.1 L, Globulin 4.3 H, Albumin/Globulin Ratio 0.5 L Micro: Microbiology 04/20/21 22:46 Sputum, Tracheal Aspirate Gram Stain - Final 04/20/21 22:46 Sputum, Tracheal Aspirate Respiratory Culture - Preliminary Staphylococcus aureus Pseudomonas aeroginosa 04/20/21 21:29 Blood Culture (Wb) - Venous Bacteria Detection (PCR) - Final Coag Negative Staph 04/20/21 21:29 Blood Culture (Wb) - Venous Blood Culture - Preliminary Gram negative smiley Staphylococcus aureus Gram positive organism 04/21/21 00:54 Sputum, Induced/Lukens Gram Stain - Final Cardiology Labs/Tests 04/22/21 08:50: Sodium 142, Potassium 4.4, Chloride 108 H, Carbon Dioxide 28.0, Anion Gap 6, BUN 49 H, Creatinine 1.76 H, Est GFR (MDRD) Af Amer 50 L, Est GFR (MDRD) Non-Af 41 L, BUN/Creatinine Ratio 27.8 H, Glucose 89, Calcium 8.9, Total Bilirubin 0.90 Rhythm: Sinus rhythm/sinus tachycardia/PSVT ECHO: As noted below Radiography Diagnostic Testing: Radiology Impression Echocardiogram 04/21/21 00:56 Interpretation Summary The study was technically difficult. Contrast injection was performed. Based upon the 2D echocardiographic and contrast enhanced images obtained there appears to be grossly normal left ventricular size with mild global left ventricular systolic dysfunction. The estimated ejection fraction is 45 %. Based upon the 2D echocardiographic and contrast enhanced images obtained there appears to be moderate right ventricular dilatation with moderate global right ventricular systolic dysfunction. The left atrium is mildly enlarged. The right atrium is mildly enlarged. There is mild to moderate mitral annular calcification. Extension of the mitral annular calcification onto the base of the posterior mitral valve leaflet. Trivial mitral valve insufficiency. Mild tricuspid valve insufficiency. Moderate focal aortic valve calcification. Mildly dilated aortic root. Mild pulmonary artery dilation. Right ventricular systolic pressure estimated to be 51 mmHg c/w with pulmonary hypertension. There is evidence of diastolic dysfunction. Ordering Physician: Becka Castro Referring Physician: Alex Pedersen Performed By: Fariha Rodríguez, RDCS, RVT Physical Exam HEENT normocephalic and head/scalp atraumatic Resp Auscultation: rhonchi throughout (Scattered) Cardio regular rate, regular rhythm, S1 normal heart sound and S2 normal heart sound GI normal to inspection, nondistended, normoactive bowel sounds Extremity no pedal edema Assessment & Plan Assessment/Plan (1) Cardiopulmonary arrest with successful resuscitation: PLAN: The patient appears to have experienced 2 cardiopulmonary arrest events. It appears his events may have been somewhat prolonged with respect to regaining ROSC. The patient is currently in the ICU mechanically intubated and ventilated. The patient does not appear to respond appropriately to verbal stimulation. The patient has been reported as having nonpurposeful movements/myoclonic jerking movements. The patient has been undergoing further neurologic evaluation with EEG that appears to been reported with findings compatible with an anoxic event. Overall, based upon the information above, there is significant concern of the patient experiencing hypoxic/anoxic encephalopathy which would unfortunately lead to a poor prognosis. In the interim, from a cardiovascular standpoint, the patient's has demonstrated a continued sinus rhythm/sinus tachycardia and episodes appearing compatible with his history of PSVT with spontaneous resolution back to sinus rhythm/sinus tachycardia. He has also not been reported as hypotensive in the ICU. His cardiac enzymes have remained negative and his ECG demonstrated no acute electrocardiographic changes. His transthoracic echocardiogram is as noted. His overall LV systolic function/LVEF is somewhat decreased compared to the previous study. This may be secondary to his cardiopulmonary arrest events and the possibility of hypoxemia and global myocardial ischemia/stunning. He is receiving supportive therapy as needed. (2) SVT (supraventricular tachycardia): PLAN: The patient had a history of PSVT. He has demonstrated recurrent episodes appearing compatible with this. The patient can receive additional medical therapy and attempt to assist with his PSVT which could include agents such as IV beta-blockers or IV calcium channel antagonist as needed. He also received 1 dose of IV digitalis yesterday to assist with rate control and avoid concerns of hypotension. (3) Hyperlipidemia: QUALIFIERS: Hyperlipidemia type: unspecified Qualified Code(s): E78.5 - Hyperlipidemia, unspecified PLAN: The patient has a history of hyperlipidemia. The patient can continue evaluation care as deemed appropriate as his clinical course progresses. (4) Hypertension: PLAN: The patient does have a history of hypertension. His blood pressures both systolic and diastolic have been noted to be elevated. He can receive supportive antihypertensive therapy as needed during his ongoing evaluation and care. (5) Thoracic aortic aneurysm without rupture: PLAN: The patient has a history of a descending thoracic aortic aneurysm/dissection which was evaluated by chest CTA on 11-08-2018. At that point time per the radiology report it was listed as stable. Addt'l Comments Overall, the patient will continue in the ICU with supportive care. According to the ICU staff additional decisions regarding the patient's long-term evaluation care are pending further discussion with family members. This note was generated using a voice recognition system and there may be incorrect words, spelling or punctuation that were not noted when reviewing the office note prior to saving.
[2021-04-22 11:51] LABS: Bedside Glucose 98 mg/dL (70-110)
[2021-04-22 16:30] LABS: Bedside Glucose 89 mg/dL (70-110)
[2021-04-22] MEDS: Ipratropium/Albuterol Sulfate 3 ML AMPUL.NEB INHALATION ×2 (19:28→23:12)
[2021-04-22] MEDS: Acetaminophen 650 MG/20 ML UDC PO (22:26)
[2021-04-22] MEDS: Latanoprost 0.005% 1 Bottle 1 DRP OPHTHALMIC (22:31)
[2021-04-22 22:56] LABS: Bedside Glucose 77 mg/dL (70-110)
[2021-04-23] VITALS (35 sets, daily range): BP systolic 79–167; BP diastolic 54–110; PULSE 71–180; RESP 16–18; TEMP 37.7–38.3; O2SAT 85–99
--- NOTE | 2021-04-23 02:38 | PCM.RX.CS ---
Consult Pharmacy has been consulted to manage selected antiobiotic: Vancomycin Type of Consult: Follow-up Labs: Sodium 142 mmol/L (136-145) 04/22/21 08:50 Potassium 4.4 mmol/L (3.5-5.1) 04/22/21 08:50 Chloride 108 mmol/L (98-107) H 04/22/21 08:50 Carbon Dioxide 28.0 mmol/L (21.0-32.0) 04/22/21 08:50 Anion Gap 6 (5-15) 04/22/21 08:50 BUN 49 mg/dL (7-18) H 04/22/21 08:50 Creatinine 1.76 mg/dL (0.70-1.30) H 04/22/21 08:50 Est GFR (MDRD) Af Amer 50 mL/min (>60) L 04/22/21 08:50 Est GFR (MDRD) Non-Af 41 mL/min (>60) L 04/22/21 08:50 BUN/Creatinine Ratio 27.8 RATIO (10-20) H 04/22/21 08:50 Glucose 89 mg/dL (74-106) 04/22/21 08:50 Microbiology: Microbiology 04/20/21 14:10 Urine Catheter - Prieto Legionella Antigen - Final 04/20/21 14:10 Urine Catheter - Prieto Streptococcus pneumoniae Antigen (M - Final 04/21/21 00:54 Sputum, Induced/Lukens Gram Stain - Final 04/21/21 00:54 Sputum, Induced/Lukens Respiratory Culture - Preliminary Mixed Gram Pos & Gram Neg Org 04/20/21 22:46 Sputum, Tracheal Aspirate Gram Stain - Final 04/20/21 22:46 Sputum, Tracheal Aspirate Respiratory Culture - Preliminary Staphylococcus aureus Pseudomonas aeroginosa 04/20/21 21:29 Blood Culture (Wb) - Venous Bacteria Detection (PCR) - Final Coag Negative Staph 04/20/21 21:29 Blood Culture (Wb) - Venous Blood Culture - Preliminary Gram negative smiley Staphylococcus aureus Gram positive organism Goal Trough: 15-20 mcg/mL Pharmacy Plan for Drug Dosing: Pharmacy Service will continue to monitor and adjust dosing as required. TROUGH LAB NOT DRAWN, DOSE HUNG. ORDER TROUGH PRIOR TO NEXT DOSE Follow-Up Labs: Trough Vancomycin Labs to be done on [date and time ordered]: 04/24 @ 4557
[2021-04-23] MEDS: Metoprolol Tartrate 5 MG/5 ML Vial IV ×3 (05:09→18:12)
[2021-04-23] MEDS: Acetaminophen 650 MG/20 ML UDC PO ×2 (05:35→11:50)
[2021-04-23 06:15] LABS: Bedside Glucose 103 mg/dL (70-110)
--- NOTE | 2021-04-23 07:19 | PN.HOSP_ITS ---
Subjective Subjective Patient seen remains intubated on the vent. Blood pressure relatively on the low side. Patient remains tachycardic has had runs of SVTs. Objective Data Objective Data Vital Signs: Vital Signs Temp Pulse Resp BP Pulse Ox 100.7 F H 175 H 16 89/60 L 97 04/23/21 07:00 04/23/21 07:00 04/23/21 07:00 04/23/21 07:00 04/23/21 07:00 Oxygen Flow Rate (L/min) 100 Oxygen Delivery Method Mechanical Ventilator Weight: 120.2 kg Body Mass Index (BMI) 41.8 Intake & Output: Intake and Output for Last 24 Hours 04/21/21 04/22/21 04/23/21 23:59 23:59 23:59 Intake Total 2144.76 / 2164.76 1070 / 1070 690 / 690 Output Total 1020 / 1230 2390 / 2690 1200 / 1200 Balance 1124.76 / 934.76 -1320 / -1620 -510 / -510 Lab / Micro Data Result Diagrams: 04/21/21 00:55 04/23/21 08:35 Labs: Laboratory Results - last 24 hr 04/22/21 08:50: Sodium 142, Potassium 4.4, Chloride 108 H, Carbon Dioxide 28.0, Anion Gap 6, BUN 49 H, Creatinine 1.76 H, Estim Creat Clear Calc 36.75, Est GFR (MDRD) Af Amer 50 L, Est GFR (MDRD) Non-Af 41 L, BUN/Creatinine Ratio 27.8 H, Glucose 89, Calcium 8.9, Total Bilirubin 0.90, AST 163 H, ALT 336 H, Alkaline Phosphatase 100, Total Protein 6.4, Albumin 2.1 L, Globulin 4.3 H, Albumin/Globulin Ratio 0.5 L 04/22/21 11:44: POC Glucose 98 04/22/21 16:26: POC Glucose 89 04/22/21 22:41: POC Glucose 77 04/23/21 06:10: POC Glucose 103 Micro: Microbiology 04/20/21 14:10 Urine Catheter - Rpieto Legionella Antigen - Final 04/20/21 14:10 Urine Catheter - Prieto Streptococcus pneumoniae Antigen (M - Final 04/21/21 00:54 Sputum, Induced/Lukens Gram Stain - Final 04/21/21 00:54 Sputum, Induced/Lukens Respiratory Culture - Preliminary Mixed Gram Pos & Gram Neg Org 04/20/21 22:46 Sputum, Tracheal Aspirate Gram Stain - Final 04/20/21 22:46 Sputum, Tracheal Aspirate Respiratory Culture - Preliminary Staphylococcus aureus Pseudomonas aeroginosa 04/20/21 21:29 Blood Culture (Wb) - Venous Bacteria Detection (PCR) - Final Coag Negative Staph 04/20/21 21:29 Blood Culture (Wb) - Venous Blood Culture - Preliminary Gram negative smiley Staphylococcus aureus Gram positive organism Physical Exam Narrative GENERAL: Unresponsive on the vent HEENT: Atraumatic; EYES; Anicteric, Normal Conjunctiva NECK; supple, normal thyroid, RESPIRATORY: Diminished to auscultation CARDIOVASCULAR: Regular S1 S2, GI: soft, normoactive bowel sounds, : No Renal angle tenderness; EXTREMITIES: No edema, no clubbing, MUSCULOSKELETAL: no muscle wasting NEURO: Unresponsive on the vent SKIN: Significant excoriation in the perineum Assessment & Plan Assessment/Plan (1) Cardiopulmonary arrest with successful resuscitation: PLAN: Patient is a 66-year-old gentleman with significant comorbidities including GBS with subsequent significant debility with chronic excoriations and wounds involving the perineum who was brought in after found patient unresponsive. EMS upon arrival found patient to be in PEA successfully resuscitated with ROSC. He apparently lost pulse in route to the ED and CPR had to be initiated found to be in wide-complex tachycardia and was subsequently resuscitated with ROSC is intubated and admitted to the intensive care unit. 1. Acute cardiopulmonary arrest ?Patient was successfully resuscitated using ACLS protocol with ROSC S. Subsequently left on the vent. Etiology of patient acute cardiopulmonary arrest not clear at this point. Consult was placed to cardiology. 2. Acute hypoxic respiratory failure ?Secondary to above patient had to be intubated and admitted to the intensive care unit with consultation placed to statistician applied. ?04/23/2021; patient remains on the vent by family to decide after 72 hours about continuation of care 3. Suspected pneumonia ?Chest x-ray obtained demonstrated patchy bibasilar opacities. Patient was started on Zosyn and vancomycin 4. Metabolic encephalopathy ?Patient was exhibiting signs of anoxic brain injury with myoclonic episodes. Underwent EEG -04/22/2021;Patient remains on the vent without sedation. EEG obtained the day prior consistent with anoxic brain injury 5. Acute kidney injury ?Superimposed on chronic kidney disease stage III, monitoring BMP 6. 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 Sacral decubitus ulcer With significant perinea excoriation. Consult placed wound care nurse 8. Right lower extremity skin ulceration ?Appears to be healing 9. Diabetes mellitus type II -With complications including diabetic nephropathy; patient on Accu-Cheks every 6 with coverage 10. Chronic kidney disease stage IIIb ?Secondary to diabetic nephropathy patient presented with impaired kidney fu nction management as discussed above 11. Essential hypertension ?Antihypertensives on hold 12. Class III obesity with BMI of 41.8 ?Complicating care 13. Obstructive sleep apnea ?Patient was on CPAP at night prior to his admission 14. COPD Per history 15. DVT prophylaxis ?SC heparin 16. Paroxysmal SVT ?Case was discussed with cardiology consideration given to started either amiodarone or digoxin will however wait for family to decide prior to making final decisions 17. Hypernatremia ?Adjusted patient fluids subsequent monitoring with BMPs ordered Charges/Coding Visit Charges Inpatient E&M: 45387 Subs Hosp L3
--- NOTE | 2021-04-23 07:59 | PCM.PN.INT ---
Subjective Subjective The patient was seen and examined at the bedside this morning. Events from the last 24 hours have been reviewed. The patient is currently afebrile, hemodynamically stable and maintaining appropriate oxygen saturations on assist control mode of mechanical ventilation with an FiO2 requirement of 30% and PEEP of 5. The patient is currently documented to be overall net +3.6 L for the hospitalization. The patient remains off of all forms of sedation. This morning, the patient does have some spontaneous movement in his lower extremities. He does initiate breaths on spontaneous mode of mechanical ventilation. He does have sluggish pupillary reflexes and a positive gag. However, the patient remains comatose. Objective Data Objective Data The patient's most recent lab work, culture data and imaging studies have all been personally reviewed. Surface echocardiogram demonstrated an ejection fraction of 45%. Moderate RV dilation and moderate global RV systolic dysfunction was noted. Right ventricular systolic pressure was estimated to be 51 mmHg. Preliminary sputum culture is positive for staph aureus and Pseudomonas. Preliminary blood culture was positive for gram-positive cocci. Vital Signs: Vital Signs Temp Pulse Resp BP Pulse Ox 100.7 F H 175 H 16 89/60 L 97 04/23/21 07:00 04/23/21 07:00 04/23/21 07:00 04/23/21 07:00 04/23/21 07:00 Oxygen Flow Rate (L/min) 100 Oxygen Delivery Method Mechanical Ventilator Weight: 120.2 kg Body Mass Index (BMI) 41.8 Intake & Output: Intake and Output for Last 24 Hours 04/21/21 04/22/21 04/23/21 23:59 23:59 23:59 Intake Total 2144.76 / 2164.76 1070 / 1070 690 / 690 Output Total 1020 / 1230 2390 / 2690 1200 / 1200 Balance 1124.76 / 934.76 -1320 / -1620 -510 / -510 Lab / Micro Data Attestation: I reviewed the patient's lab results. Result Diagrams: 04/21/21 00:55 04/22/21 08:50 Labs: Laboratory Results - last 24 hr 04/22/21 08:50: Sodium 142, Potassium 4.4, Chloride 108 H, Carbon Dioxide 28.0, Anion Gap 6, BUN 49 H, Creatinine 1.76 H, Estim Creat Clear Calc 36.75, Est GFR (MDRD) Af Amer 50 L, Est GFR (MDRD) Non-Af 41 L, BUN/Creatinine Ratio 27.8 H, Glucose 89, Calcium 8.9, Total Bilirubin 0.90, AST 163 H, ALT 336 H, Alkaline Phosphatase 100, Total Protein 6.4, Albumin 2.1 L, Globulin 4.3 H, Albumin/Globulin Ratio 0.5 L 04/22/21 11:44: POC Glucose 98 04/22/21 16:26: POC Glucose 89 04/22/21 22:41: POC Glucose 77 04/23/21 06:10: POC Glucose 103 Micro: Microbiology 04/20/21 14:10 Urine Catheter - Prieto Legionella Antigen - Final 04/20/21 14:10 Urine Catheter - Prieto Streptococcus pneumoniae Antigen (M - Final 04/21/21 00:54 Sputum, Induced/Lukens Gram Stain - Final 04/21/21 00:54 Sputum, Induced/Lukens Respiratory Culture - Preliminary Mixed Gram Pos & Gram Neg Org 04/20/21 22:46 Sputum, Tracheal Aspirate Gram Stain - Final 04/20/21 22:46 Sputum, Tracheal Aspirate Respiratory Culture - Preliminary Staphylococcus aureus Pseudomonas aeroginosa 04/20/21 21:29 Blood Culture (Wb) - Venous Bacteria Detection (PCR) - Final Coag Negative Staph 04/20/21 21:29 Blood Culture (Wb) - Venous Blood Culture - Preliminary Gram negative smiley Staphylococcus aureus Gram positive organism Physical Exam Const Constitutional Narrative: The patient remains comatose on the ventilator. No purposeful movement was noted. General Appearance: intubated and patient mechanically ventilated Exam Limitations: altered mental status Nutritional Appearance: morbidly obese HEENT normocephalic and head/scalp atraumatic Mouth: endotracheal tube in place and OG tube in place Eyes Eyes Narrative: Bilateral sluggish pupillary reflexes noted. Neck supple General: trachea midline and CVC in place Resp Resp Narrative: Breathing over set rate on the ventilator. Auscultation: diminished lung sounds; Negative for rales, rhonchi or wheezes Cardio S1 normal heart sound and S2 normal heart sound Rate: tachycardic GI normal to inspection, nondistended, normoactive bowel sounds Extremity no clubbing, cyanosis or edema Skin Wound Narrative: Multiple wounds scattered over lower extremities and perineum. Neuro Neuro Narrative: Comatose on ventilator. The patient does initiate spontaneous breaths on CPAP and does have a gag.
[2021-04-23 08:59] LABS: ALB/GLOB Ratio 0.4 RATIO (0.9-2.4); AST(SGOT) 117 U/L (15-37); Alanine Aminotransfer ALT/SGPT 215 U/L (16-61); Albumin, Serum 1.8 g/dL (3.2-5.0); Alkaline Phosphatase 79 U/L (45-117); Anion Gap 7 (5-15); BUN 39 mg/dL (7-18); BUN/Creat Ratio 24.5 RATIO (10-20); Calcium,Total 8.3 mg/dL (8.5-10.1); Chloride 112 mmol/L (98-107); Creatinine, Serum 1.59 mg/dL (0.70-1.30); EST Glomerular Filtration Rate 46 mL/min (>60); Est Glom Filt Rate - Afr Amer 56 mL/min (>60); Estimated Creatinine Clearance 40.68 ml/min; Glucose 89 mg/dL (74-106); Potassium 3.5 mmol/L (3.5-5.1); Protein, Total 5.8 g/dL (6.4-8.2); Sodium Level 147 mmol/L (136-145)
[2021-04-23] MEDS: Chlorhexidine 15 ML PO ×2 (09:32→21:27)
[2021-04-23] MEDS: Nystatin Powder 15gm Bottle 1 APPLIC TOPICAL ×2 (09:32→21:27)
[2021-04-23] MEDS: BRIMONIDINE 0.2% 5ML BOTTLE 1 DRP OPHTHALMIC ×2 (09:33→21:25)
[2021-04-23] MEDS: Dorzolamide HCL/Timolol 10 ml Bottle 1 DRP OPHTHALMIC ×2 (09:33→21:26)
--- NOTE | 2021-04-23 09:43 | PN.CC_ITS ---
Subjective Subjective The patient was seen and examined at the bedside this morning. Events from the last 24 hours have been reviewed. The patient remains on assist control mode of mechanical ventilation with an FiO2 requirement of 30% and PEEP of 5. He is currently documented to be overall net +3.6 L for the hospitalization. The pat ient remains off of all forms of sedation. He remains on broad-spectrum antimicrobials along with scheduled Lopressor due to SVT. The patient essentially remains comatose on the ventilator, but does have a gag reflex with sluggish pupillary reflex and does initiate spontaneous breaths on spontaneous mode of mechanical ventilation. Sodium and chloride have increased to 147 and 112, respectively. Creatinine has improved to 1.59. AST and ALT are both improved. Objective Data Objective Data The patient's most recent lab work, culture data and imaging studies have all been personally reviewed. Surface echocardiogram demonstrated an ejection fraction of 45%. Moderate RV dilation and moderate global RV systolic dysf unction was noted. Right ventricular systolic pressure was estimated to be 51 mmHg. Preliminary sputum culture is positive for staph aureus and Pseudomonas. Preliminary blood culture was positive for gram-positive cocci. Vital Signs: Vital Signs Temp Pulse Resp BP Pulse Ox 100.5 F H 172 H 16 87/54 L 98 04/23/21 08:00 04/23/21 08:00 04/23/21 08:00 04/23/21 08:00 04/23/21 08:00 Oxygen Flow Rate (L/min) 100 Oxygen Delivery Method Mechanical Ventilator Weight: 120.2 kg Body Mass Index (BMI) 41.8 Intake & Output: Intake and Output for Last 24 Hours 04/21/21 04/22/21 04/23/21 23:59 23:59 23:59 Intake Total 2144.76 / 2164.76 1070 / 1070 740 / 740 Output Total 1020 / 1230 2390 / 2690 1200 / 1200 Balance 1124.76 / 934.76 -1320 / -1620 -460 / -460 Lab / Micro Data Attestation: I reviewed the patient's lab results. Result Diagrams: 04/21/21 00:55 04/23/21 08:35 Labs: Laboratory Results - last 24 hr 04/22/21 11:44: POC Glucose 98 04/22/21 16:26: POC Glucose 89 04/22/21 22:41: POC Glucose 77 02/11/22 06:10: POC Glucose 103 04/23/21 08:35: Sodium 147 H, Potassium 3.5, Chloride 112 H, Carbon Dioxide 28.0, Anion Gap 7, BUN 39 H, Creatinine 1.59 H, Estim Creat Clear Calc 40.68, Est GFR (MDRD) Af Amer 56 L, Est GFR (MDRD) Non-Af 46 L, BUN/Creatinine Ratio 24.5 H, Glucose 89, Calcium 8.3 L, Total Bilirubin 1.10 H, AST 117 H, ALT 215 H, Alkaline Phosphatase 79, Total Protein 5.8 L, Albumin 1.8 L, Globulin 4.0, Albumin/Globulin Ratio 0.4 L Micro: Microbiology 04/21/21 00:54 Sputum, Induced/Lukens Gram Stain - Final 04/21/21 00:54 Sputum, Induced/Lukens Respiratory Culture - Preliminary Staphylococcus aureus GNR Poss Pseudomonas sp Presumptive C albicans 04/20/21 21:29 Blood Culture (Wb) - Venous Bacteria Detection (PCR) - Final Coag Negative Staph 04/20/21 21:29 Blood Culture (Wb) - Venous Blood Culture - Preliminary Acinetobacter baumannii Meth. resistant Staph. aureus Vancomycin Resist. E. faecalis 04/20/21 22:46 Sputum, Tracheal Aspirate Gram Stain - Final 04/20/21 22:46 Sputum, Tracheal Aspirate Respiratory Culture - Final Meth. resistant Staph. aureus Pseudomonas aeroginosa 04/20/21 14:10 Urine Catheter - Prieto Legionella Antigen - Final 04/20/21 14:10 Urine Catheter - Prieto Streptococcus pneumoniae Antigen (M - Final Physical Exam Const Constitutional Narrative: The patient remains comatose on the ventilator. General Appearance: intubated and patient mechanically ventilated Exam Limitations: altered mental status Nutritional Appearance: morbidly obese HEENT normocephalic and head/scalp atraumatic Mouth: endotracheal tube in place and OG tube in place Eyes Eyes Narrative: Sluggish pupillary response bilaterally. Neck supple General: trachea midline and CVC in place Resp Resp Narrative: Breathing over set rate on the ventilator. Auscultation: diminished lung sounds; Negative for rales, rhonchi or wheezes Cardio S1 normal heart sound and S2 normal heart sound Rate: tachycardic GI normal to inspection, nondistended, normoactive bowel sounds Extremity no clubbing, cyanosis or edema Skin Wound Narrative: Multiple wounds scattered over lower extremities and perineum. Neuro Neuro Narrative: Comatose on ventilator. The patient does have a gag reflex and does initiate spontaneous breaths on CPAP mode mechanical ventilation. Charges/Coding Procedures Hospitalists Procedures: [id number] [facility] Care 1st Hr Assessment/Plan Assessment/Plan (1) Cardiopulmonary arrest with successful resuscitation: CODE(S): I46.9 - Cardiac arrest, cause unspecified PLAN: RECOMMENDATIONS: 1. Continue current supportive measures including invasive mechanical ventilatory support. 2. Wean FiO2/PEEP for saturations greater than 90%. 3. Continue to hold all sedating medications. 4. Continue antimicrobials as ordered. 5. Continue appropriate ICU prophylaxis. 6. Ongoing goals of care discussion with the patient's family. IMPRESSIONS: 1. Acute on chronic respiratory failure status post out of hospital cardiac arrest The patient presented to the ED on April 20 following an out of hospital PEA cardiac arrest with successful ROSC. Approximately 20 minutes elapsed from onset of arrest to successful return of spontaneous circulation. As a consequence, it does appear that the patient has sustained some form of anoxic brain injury. In addition, the patient does have known obstructive lung disease and likely has an underlying pulmonary infectious etiology with staph aureus and Pseudomonas isolated from sputum. Accordingly, the patient will be continued on antimicrobials. He will also be continued on assist control mode of mechanical ventilation with FiO2 and PEEP weaned to maintain oxygen saturations at or above 90%. 2. Encephalopathy Likely secondary to anoxia sustained as a consequence of his cardiac arrest. We will continue current supportive measures as noted above. We will continue to hold sedating medications. Findings noted on EEG were consistent with anoxic brain injury. Overall prognosis is poor. 3. Acute on chronic kidney disease/acute liver injury Improving. Likely secondary to global hypoperfusion in the setting of cardiac arrest. Anticipate improvement in organ function with stabilization of hemodynamics. Continue to monitor urine output. No current indication for renal replacement therapy. 4. History of chronic wounds Continue local wound care. 5. History of SVT/chronic pain syndrome/morbid obesity/heart failure with preserved ejection fraction/ADELAIDE/COPD Complicates care, management, recovery and prognosis. Continue supportive measures as noted above. TIME: 32 minutes of critical care time, independent of procedures, was spent addressing the patient's acute on chronic respiratory failure status post cardiac arrest, encephalopathy, acute on chronic kidney disease, acute liver injury, review of all data and collaboration with the care team.
--- NOTE | 2021-04-23 10:55 | WOUNDNOTE ---
CHARISSA Dawkins states patient was just turned and Triad was applied. the dressing to the right leg was changed at this time per this nurse. did not turn patient to assess buttocks. pt condition appears unchanged. awaiting family decision. will continue to monitor for needs.
--- NOTE | 2021-04-23 11:04 | PCM.PN.CARD ---
Subjective Subjective The patient remains in the ICU mechanically intubated/ventilated. He appears to have had nonpurposeful movements. Objective Data Vital Signs: Vital Signs Temp Pulse Resp BP Pulse Ox 100.8 F H 171 H 16 88/68 L 90 04/23/21 10:00 04/23/21 10:00 04/23/21 10:00 04/23/21 10:00 04/23/21 10:00 Oxygen Flow Rate (L/min) 100 Oxygen Delivery Method Mechanical Ventilator Weight: 264 lb 15.93 oz Body Mass Index (BMI) 41.8 Intake & Output: Intake and Output for Last 24 Hours 04/21/21 04/22/21 04/23/21 23:59 23:59 23:59 Intake Total 2144.76 / 2164.76 1070 / 1070 880 / 880 Output Total 1020 / 1230 2390 / 2690 1200 / 1200 Balance 1124.76 / 934.76 -1320 / -1620 -320 / -320 Lab / Micro Data Result Diagrams: 04/21/21 00:55 04/23/21 08:35 Labs: Laboratory Results - last 24 hr 04/22/21 11:44: POC Glucose 98 04/22/21 16:26: POC Glucose 89 04/22/21 22:41: POC Glucose 77 04/23/21 06:10: POC Glucose 103 04/23/21 08:35: Sodium 147 H, Potassium 3.5, Chloride 112 H, Carbon Dioxide 28.0, Anion Gap 7, BUN 39 H, Creatinine 1.59 H, Estim Creat Clear Calc 40.68, Est GFR (MDRD) Af Amer 56 L, Est GFR (MDRD) Non-Af 46 L, BUN/Creatinine Ratio 24.5 H, Glucose 89, Calcium 8.3 L, Total Bilirubin 1.10 H, AST 117 H, ALT 215 H, Alkaline Phosphatase 79, Total Protein 5.8 L, Albumin 1.8 L, Globulin 4.0, Albumin/Globulin Ratio 0.4 L Micro: Microbiology 04/21/21 00:54 Sputum, Induced/Lukens Gram Stain - Final 04/21/21 00:54 Sputum, Induced/Lukens Respiratory Culture - Preliminary Staphylococcus aureus GNR Poss Pseudomonas sp Presumptive C albicans 04/20/21 21:29 Blood Culture (Wb) - Venous Bacteria Detection (PCR) - Final Coag Negative Staph 04/20/21 21:29 Blood Culture (Wb) - Venous Blood Culture - Preliminary Acinetobacter baumannii Meth. resistant Staph. aureus Vancomycin Resist. E. faecalis 04/20/21 22:46 Sputum, Tracheal Aspirate Gram Stain - Final 04/20/21 22:46 Sputum, Tracheal Aspirate Respiratory Culture - Final Meth. resistant Staph. aureus Pseudomonas aeroginosa 04/20/21 14:10 Urine Catheter - Prieto Legionella Antigen - Final 04/20/21 14:10 Urine Catheter - Prieto Streptococcus pneumoniae Antigen (M - Final Cardiology Labs/Tests 04/23/21 08:35: Sodium 147 H, Potassium 3.5, Chloride 112 H, Carbon Dioxide 28.0, Anion Gap 7, BUN 39 H, Creatinine 1.59 H, Est GFR (MDRD) Af Amer 56 L, Est GFR (MDRD) Non-Af 46 L, BUN/Creatinine Ratio 24.5 H, Glucose 89, Calcium 8.3 L, Total Bilirubin 1.10 H Rhythm: Sinus rhythm/sinus tachycardia/PSVT Physical Exam Resp Resp Narrative: Disseminated upper airway sounds Cardio regular rate, regular rhythm, S1 normal heart sound and S2 normal heart sound GI normal to inspection, nondistended, normoactive bowel sounds Extremity no pedal edema Procedure Criteria Type of Procedure Procedure Type: Elective Elective Risks - COVID COVID Risk Discussion: The surgeon/proceduralist and patient have discussed in detail the risk of exposure to and/or potential harm posed by the COVID-19 virus with having a surgery/procedure at this time versus the risk of delaying the surgery/procedure. It is not possible to know either the risk of delaying the surgery or procedure or chance of getting an infection with perfect accuracy, but a joint decision was made between the patient and the surgeon/proceduralist to proceed at this time with the scheduled surgery/procedure as indicated on the consent form. Assessment & Plan Assessment & Plan (1) Cardiopulmonary arrest with successful resuscitation: Plan: The patient continues under the pulmonology/critical care staff for his cardiopulmonary arrest situation. He remains on the ventilator. There has been no report of any purposeful response to verbal stimulation. He is EEG suggested findings compatible with an anoxic event. His family is considering, after 72 hours of being on the ventilator, how to proceed with additional evaluation/care. (2) SVT (supraventricular tachycardia): Plan: He has had intermittent episodes of his PSVT. He has been treated with beta-blockers and digitalis. At the moment with respect to his episodes he is not appear to have any significant hemodynamic compromise. He will continue his current beta-lupis support. (3) Hyperlipidemia: Qualifiers: Hyperlipidemia type: unspecified Qualified Code(s): E78.5 - Hyperlipidemia, unspecified Plan: He will continue evaluation care as deemed appropriate. (4) Essential (primary) hypertension: Plan: His blood pressure has waxed and waned somewhat. He will continue supportive therapy as deemed appropriate at this time. (5) Thoracic aortic aneurysm without rupture: Problem Details: Stable descending thoracic aortic aneurysm and dissection with only a small opacified lumen. Stable dating back to 2015. per CT scan 10/2018 Plan: He has undergone evaluation for this in the past as previously noted. At the present time he has been followed noninvasively. Plan Detail Health Concerns: Overall, from a cardiovascular standpoint, he is continuing supportive therapy as deemed appropriate at this time. His family is deciding how to proceed, if after 72 hours of being on the ventilator, he does not demonstrate any obvious symptoms provement neurologically or otherwise. The patient's case was discussed and reviewed with Dr. Villaneuva and Dr. Ruth. This note was generated using a voice recognition system and there may be incorrect words, spelling or punctuation that were not noted when reviewing the office note prior to saving.
[2021-04-23 12:05] LABS: Bedside Glucose 79 mg/dL (70-110)
--- NOTE | 2021-04-23 14:56 | NURSING ---
Family at the bedside and requesting to speak with Dr. Ruth. Dr. Ruth is not in the hospital so Dr. Villanueva was contacted to come speak with the family. Family notified that Dr. Ruth is no longer in the hospital but that Dr. Villanueva is coming up to the floor to speak with them. The family stated that they do not wish to speak with Dr. Villanueva and will return tomorrow morning to speak with Dr. Ruth. Dr. Villanueva and Dr. Ruth both notified via [facility].
[2021-04-23 18:26] LABS: Bedside Glucose 84 mg/dL (70-110)
[2021-04-23] MEDS: Latanoprost 0.005% 1 Bottle 1 DRP OPHTHALMIC (21:26)
[2021-04-23] MEDS: 0.9% Saline Lock 10 ML Syringe IV (21:26)
[2021-04-24] VITALS (34 sets, daily range): BP systolic 80–170; BP diastolic 45–117; PULSE 74–172; RESP 14–17; TEMP 37.9–38.3; O2SAT 94–100
[2021-04-24] MEDS: Metoprolol Tartrate 5 MG/5 ML Vial IV ×3 (00:06→17:54)
[2021-04-24 00:16] LABS: Bedside Glucose 86 mg/dL (70-110)
[2021-04-24 03:52] LABS: Vancomycin, Trough Level 24.2 ug/mL (5.0-15.0)
--- NOTE | 2021-04-24 04:09 | NURSING ---
vanc trough was 24.9 Roger in pharm said to stop the vanc thats running now.
--- NOTE | 2021-04-24 04:14 | PCM.RX.CS ---
Consult Pharmacy has been consulted to manage selected antiobiotic: Vancomycin Type of Consult: Follow-up Labs: Sodium 147 mmol/L (136-145) H 04/23/21 08:35 Potassium 3.5 mmol/L (3.5-5.1) 04/23/21 08:35 Chloride 112 mmol/L (98-107) H 04/23/21 08:35 Carbon Dioxide 28.0 mmol/L (21.0-32.0) 04/23/21 08:35 Anion Gap 7 (5-15) 04/23/21 08:35 BUN 39 mg/dL (7-18) H 04/23/21 08:35 Creatinine 1.59 mg/dL (0.70-1.30) H 04/23/21 08:35 Est GFR (MDRD) Af Amer 56 mL/min (>60) L 04/23/21 08:35 Est GFR (MDRD) Non-Af 46 mL/min (>60) L 04/23/21 08:35 BUN/Creatinine Ratio 24.5 RATIO (10-20) H 04/23/21 08:35 Glucose 89 mg/dL (74-106) 04/23/21 08:35 Vancomycin Trough 24.2 ug/mL (5.0-15.0) H 04/24/21 03:05 Microbiology: Microbiology 04/20/21 20:18 Blood Culture (Wb) - Left Wrist Blood Culture - Preliminary No growth in 48 hours. 04/20/21 21:29 Blood Culture (Wb) - Venous Bacteria Detection (PCR) - Final Coag Negative Staph 04/20/21 21:29 Blood Culture (Wb) - Venous Blood Culture - Preliminary Gram negative smiley Meth. resistant Staph. aureus Vancomycin Resist. E. faecalis Coag Negative Staph 04/21/21 00:54 Sputum, Induced/Lukens Gram Stain - Final 04/21/21 00:54 Sputum, Induced/Lukens Respiratory Culture - Preliminary Staphylococcus aureus GNR Poss Pseudomonas sp Presumptive C albicans 04/20/21 22:46 Sputum, Tracheal Aspirate Gram Stain - Final 04/20/21 22:46 Sputum, Tracheal Aspirate Respiratory Culture - Final Meth. resistant Staph. aureus Pseudomonas aeroginosa 04/20/21 14:10 Urine Catheter - Prieto Legionella Antigen - Final 04/20/21 14:10 Urine Catheter - Prieto Streptococcus pneumoniae Antigen (M - Final Goal Trough: 15-20 mcg/mL Pharmacy Plan for Drug Dosing: Pharmacy Service will continue to monitor and adjust dosing as required. TROUGH 24.2 AT 13 HRS. DOSE STARTED AND STOPPED, DRAW RANDOM TROUGH AT TODAY AT 1550 Follow-Up Labs: Trough Vancomycin Labs to be done on [date and time ordered]: 04/24 @ 1500
[2021-04-24 04:18] LABS: Absolute Lymphocyte Count 1.09 X10^3/uL (0.83-4.51); Absolute Neutrophil Count 8.5 X10^3/uL (2.0-7.7); Basophil# 0.01 X10^3/uL; Basophil% 0.1 % (0-1); Eosinophils% 0.9 % (0-5); Hematocrit 30.7 % (40-54); Hemoglobin 9.9 g/dL (13.0-16.5); Lymphocyte # 1.09 X10^3/ul (0.83-4.51); Lymphocyte % 9.9 % (19-41); Mean Corp Hgb Conc 32.2 g/dL (32-36); Mean Corpuscular Hgb 26.1 pg (27.0-32.0); Mean Platelet Vol. 10.2 fl (6.2-12.0); Monocyte# 1.16 X10^3/uL; Monocyte% 10.6 % (0-10); Neutrophil # 8.54 X10^3/uL (2.7-7.7); Neutrophil % 77.9 % (47-70); Platelet Count 116 K/mm3 (150-450); RBC Distribution Width CV 18.7 % (11.6-14.6); RBC Distribution Width SD 54.5 fl (35.1-43.9); Red Blood Count 3.79 M/mm3 (4.6-6.2)
[2021-04-24 04:35] LABS: ALB/GLOB Ratio 0.4 RATIO (0.9-2.4); AST(SGOT) 108 U/L (15-37); Alanine Aminotransfer ALT/SGPT 183 U/L (16-61); Albumin, Serum 1.8 g/dL (3.2-5.0); Alkaline Phosphatase 84 U/L (45-117); Anion Gap 6 (5-15); BUN 34 mg/dL (7-18); BUN/Creat Ratio 23.1 RATIO (10-20); Calcium,Total 8.3 mg/dL (8.5-10.1); Chloride 113 mmol/L (98-107); Creatinine, Serum 1.47 mg/dL (0.70-1.30); EST Glomerular Filtration Rate 51 mL/min (>60); Est Glom Filt Rate - Afr Amer 61 mL/min (>60); Globulin 4.2 g/dL (2.2-4.2); Glucose 79 mg/dL (74-106); Potassium 3.2 mmol/L (3.5-5.1); Sodium Level 149 mmol/L (136-145)
--- NOTE | 2021-04-24 06:47 | PN.CC_ITS ---
Assessment & Plan Assessment/Plan (1) Cardiopulmonary arrest with successful resuscitation: PLAN: RECOMMENDATIONS: 1. Continue current supportive measures including invasive mechanical venti latory support. 2. Wean FiO2/PEEP for saturations greater than 90%. 3. Continue to hold all sedating medications. 4. Continue antimicrobials as ordered. 5. Continue D5W and potassium supplementation. 6. Continue appropriate ICU prophylaxis. 7. Ongoing goals of care discussion with the patient's family. IMPRESSIONS: 1. Acute on chronic respiratory failure status post out of hospital cardiac arrest The patient presented to the ED on April 20 following an out of hospital PEA cardiac arrest with successful ROSC. Approximately 20 minutes elapsed from onset of arrest to successful return of spontaneous circulation. As a consequence, it does appear that the patient has sustained some form of anoxic brain injury. In addition, the patient does have known obstructive lung disease and likely has an underlying pulmonary infectious etiology with staph aureus and Pseudomonas isolated from sputum. Accordingly, the patient will be continued on antimicrobials. He will also be continued on assist control mode of mechanical ventilation with FiO2 and PEEP weaned to maintain oxygen saturations at or above 90%. 2. Encephalopathy Likely secondary to anoxia sustained as a consequence of his cardiac arrest. We will continue current supportive measures as noted above. We will continue to hold sedating medications. Findings noted on EEG were consistent with anoxic brain injury. 3. Acute on chronic kidney disease/acute liver injury Improving. Likely secondary to global hypoperfusion in the setting of cardiac arrest. Anticipate improvement in organ function with stabilization of hemodynamics. Continue to monitor urine output. No current indication for renal replacement therapy. 4. History of chronic wounds Continue local wound care. 5. History of SVT/chronic pain syndrome/morbid obesity/heart failure with preserved ejection fraction/ADELAIDE/COPD Complicates care, management, recovery and prognosis. Continue supportive isai ures as noted above. TIME: 34 minutes of critical care time, independent of procedures, was spent addressing the patient's acute on chronic respiratory failure status post cardiac arrest, encephalopathy, acute on chronic kidney disease, acute liver injury, review of all data and collaboration with the care team. Subjective Subjective The patient was seen and examined at the bedside this morning. Events from the last 24 hours have been reviewed. The patient remains on assist control mode of mechanical ventilation with an FiO2 requirement of 25% and PEEP of 5. He is currently documented to be overall net +2.8 L for the hospitalization. The patient remains off of all forms of sedation. He remains on broad-spectrum antimicrobials along with scheduled Lopressor due to SVT. Sodium and chloride are elevated at 149 and 113, respectively. Potassium is low at 3.2. Creatinine has improved to 1.47. This morning, the patient is still able to initiate spontaneous breaths does have some minimal response to painful stimuli. Corneals are present along with a gag reflex. I did meet with the patient's son this morning at the bedside. While he is realistic with regards to his father's prognosis, she would like to wait an additional day or 2 prior to considering withdrawal of care. Objective Data Objective Data The patient's most recent lab work, culture data and imaging studies have all been personally reviewed. Surface echocardiogram demonstrated an ejection fraction of 45%. Moderate RV dilation and moderate global RV systolic dysfunction was noted. Right ventricular systolic pressure was estimated to be 51 mmHg. Sputum culture was positive for Pseudomonas and MRSA. Vital Signs: Vital Signs Temp Pulse Resp BP Pulse Ox 100.8 F H 89 16 85/62 L 98 04/24/21 06:00 04/24/21 06:00 04/24/21 06:00 04/24/21 06:00 04/24/21 06:00 Oxygen Flow Rate (L/min) 100 Oxygen Delivery Method Mechanical Ventilator Weight: 116.4 kg Body Mass Index (BMI) 41.8 Intake & Output: Intake and Output for Last 24 Hours 04/22/21 04/23/21 04/24/21 23:59 23:59 23:59 Intake Total 1070 / 1070 1230 / 1230 333.33 / 333.33 Output Total 2390 / 2690 2045 / 2445 800 / 800 Balance -1320 / -1620 -815 / -1215 -466.67 / -466.67 Lab / Micro Data Attestation: I reviewed the patient's lab results. Result Diagrams: 04/25/21 04:00 04/24/21 03:05 Labs: Laboratory Results - last 24 hr 04/23/21 08:35: Sodium 147 H, Potassium 3.5, Chloride 112 H, Carbon Dioxide 28.0, Anion Gap 7, BUN 39 H, Creatinine 1.59 H, Estim Creat Clear Calc 40.68, Est GFR (MDRD) Af Amer 56 L, Est GFR (MDRD) Non-Af 46 L, BUN/Creatinine Ratio 24.5 H, Glucose 89, Calcium 8.3 L, Total Bilirubin 1.10 H, AST 117 H, ALT 215 H, Alkaline Phosphatase 79, Total Protein 5.8 L, Albumin 1.8 L, Globulin 4.0, Albumin/Globulin Ratio 0.4 L 04/23/21 11:49: POC Glucose 79 04/23/21 18:15: POC Glucose 84 04/24/21 00:09: POC Glucose 86 04/24/21 03:05: Vancomycin Trough 24.2 H 04/24/21 03:05: WBC 11.0, RBC 3.79 L, Hgb 9.9 L, Hct 30.7 L, MCV 81.0, MCH 26.1 L, MCHC 32.2, RDW Std Deviation 54.5 H, RDW Coeff of Johanna 18.7 H, Plt Count 116 L , MPV 10.2, Immature Gran % (Auto) 0.600, Neut % (Auto) 77.9 H, Lymph % (Auto) 9.9 L, [place] % (Auto) 10.6 H, Eos % (Auto) 0.9, Baso % (Auto) 0.1, Absolute Neuts (auto) 8.5 H, Absolute Lymphs (auto) 1.09, Nucleated RBC % 1.0 04/24/21 03:05: Sodium 149 H, Potassium 3.2 L, Chloride 113 H, Carbon Dioxide 30.0, Anion Gap 6, BUN 34 H, Creatinine 1.47 H, Estim Creat Clear Calc 44.00, Est GFR (MDRD) Af Amer 61, Est GFR (MDRD) Non-Af 51 L, BUN/Creatinine Ratio 23.1 H, Glucose 79, Calcium 8.3 L, Total Bilirubin 1.20 H, AST 108 H, ALT 183 H, Alkaline Phosphatase 84, Total Protein 6.0 L, Albumin 1.8 L, Globulin 4.2, Albumin/Globulin Ratio 0.4 L Micro: Microbiology 04/21/21 00:54 Sputum, Induced/Lukens Gram Stain - Final 04/21/21 00:54 Sputum, Induced/Lukens Respiratory Culture - Final Pseudomonas aeroginosa Meth. resistant Staph. aureus Presumptive C albicans 04/20/21 20:18 Blood Culture (Wb) - Left Wrist Blood Culture - Preliminary No growth in 48 hours. 04/20/21 21:29 Blood Culture (Wb) - Venous Bacteria Detection (PCR) - Final Coag Negative Staph 04/20/21 21:29 Blood Culture (Wb) - Venous Blood Culture - Preliminary Gram negative smiley Meth. resistant Staph. aureus Vancomycin Resist. E. faecalis Coag Negative Staph 04/20/21 22:46 Sputum, Tracheal Aspirate Gram Stain - Final 04/20/21 22:46 Sputum, Tracheal Aspirate Respiratory Culture - Final Meth. resistant Staph. aureus Pseudomonas aeroginosa 04/20/21 14:10 Urine Catheter - Prieto Legionella Antigen - Final 04/20/21 14:10 Urine Catheter - Prieto Streptococcus pneumoniae Antigen (M - Final Physical Exam Const Constitutional Narrative: The patient remains comatose on the ventilator. General Appearance: intubated and patient mechanically ventilated Exam Limitations: altered mental status Nutritional Appearance: morbidly obese HEENT normocephalic and head/scalp atraumatic Mouth: endotracheal tube in place and OG tube in place Eyes Eyes Narrative: Sluggish pupillary response bilaterally. Neck supple General: trachea midline and CVC in place Resp Resp Narrative: Breathing over set rate on the ventilator. Auscultation: diminished lung sounds; Negative for rales, rhonchi or wheezes Cardio S1 normal heart sound and S2 normal heart sound Rate: tachycardic GI normal to inspection, nondistended, normoactive bowel sounds Extremity no clubbing, cyanosis or edema Skin Wound Narrative: Multiple wounds scattered over lower extremities and perineum. Neuro Neuro Narrative: Comatose on ventilator. The patient does have a gag/corneal reflex and does initiate spontaneous breaths on CPAP mode mechanical ventilat ion. Charges/Coding Procedures Hospitalists Procedures: [id number] Critial Care 1st Hr
--- NOTE | 2021-04-24 07:07 | CPS ---
sputum sample sent after intubation
--- NOTE | 2021-04-24 07:14 | PN.HOSP_ITS ---
Subjective Subjective No change in clinical condition. Family meeting plan for this a.m. Objective Data Objective Data Vital Signs: Vital Signs Temp Pulse Resp BP Pulse Ox 100.8 F H 89 16 142/85 H 98 04/24/21 07:00 04/24/21 07:00 04/24/21 07:00 04/24/21 07:00 04/24/21 07:00 Oxygen Flow Rate (L/min) 100 Oxygen Delivery Method Mechanical Ventilator Weight: 116.4 kg Body Mass Index (BMI) 41.8 Intake & Output: Intake and Output for Last 24 Hours 04/22/21 04/23/21 04/24/21 23:59 23:59 23:59 Intake Total 1070 / 1070 1230 / 1230 333.33 / 333.33 Output Total 2390 / 2690 2045 / 2445 1400 / 1400 Balance -1320 / -1620 -815 / -1215 -1066.67 / -1066.67 Lab / Micro Data Result Diagrams: 04/24/21 03:05 04/24/21 03:05 Labs: Laboratory Results - last 24 hr 04/23/21 08:35: Sodium 147 H, Potassium 3.5, Chloride 112 H, Carbon Dioxide 28.0, Anion Gap 7, BUN 39 H, Creatinine 1.59 H, Estim Creat Clear Calc 40.68, Est GFR (MDRD) Af Amer 56 L, Est GFR (MDRD) Non-Af 46 L, BUN/Creatinine Ratio 24.5 H, Glucose 89, Calcium 8.3 L, Total Bilirubin 1.10 H, AST 117 H, ALT 215 H, Alkaline Phosphatase 79, Total Protein 5.8 L, Albumin 1.8 L, Globulin 4.0, Albumin/Globulin Ratio 0.4 L 04/23/21 11:49: POC Glucose 79 04/23/21 18:15: POC Glucose 84 04/24/21 00:09: POC Glucose 86 04/24/21 03:05: Vancomycin Trough 24.2 H 04/24/21 03:05: WBC 11.0, RBC 3.79 L, Hgb 9.9 L, Hct 30.7 L, MCV 81.0, MCH 26.1 L, MCHC 32.2, RDW Std Deviation 54.5 H, RDW Coeff of Johanna 18.7 H, Plt Count 116 L , MPV 10.2, Immature Gran % (Auto) 0.600, Neut % (Auto) 77.9 H, Lymph % (Auto) 9.9 L, [place] % (Auto) 10.6 H, Eos % (Auto) 0.9, Baso % (Auto) 0.1, Absolute Neuts (auto) 8.5 H, Absolute Lymphs (auto) 1.09, Nucleated RBC % 1.0 04/24/21 03:05: Sodium 149 H, Potassium 3.2 L, Chloride 113 H, Carbon Dioxide 30.0, Anion Gap 6, BUN 34 H, Creatinine 1.47 H, Estim Creat Clear Calc 44.00, Est GFR (MDRD) Af Amer 61, Est GFR (MDRD) Non-Af 51 L, BUN/Creatinine Ratio 23.1 H, Glucose 79, Calcium 8.3 L, Total Bilirubin 1.20 H, AST 108 H, ALT 183 H, Alkaline Phosphatase 84, Total Protein 6.0 L, Albumin 1.8 L, Globulin 4.2, Album in/Globulin Ratio 0.4 L Micro: Microbiology 04/20/21 21:29 Blood Culture (Wb) - Venous Bacteria Detection (PCR) - Final Coag Negative Staph 04/20/21 21:29 Blood Culture (Wb) - Venous Blood Culture - Preliminary Acinetobacter baumannii Meth. resistant Staph. aureus Vancomycin Resist. E. faecalis Staphylococcus epidermidis 04/21/21 00:54 Sputum, Induced/Lukens Gram Stain - Final 04/21/21 00:54 Sputum, Induced/Lukens Respiratory Culture - Final Pseudomonas aeroginosa Meth. resistant Staph. aureus Presumptive C albicans 04/20/21 20:18 Blood Culture (Wb) - Left Wrist Blood Culture - Preliminary No growth in 48 hours. 04/20/21 22:46 Sputum, Tracheal Aspirate Gram Stain - Final 04/20/21 22:46 Sputum, Tracheal Aspirate Respiratory Culture - Final Meth. resistant Staph. aureus Pseudomonas aeroginosa 04/20/21 14:10 Urine Catheter - Prieto Legionella Antigen - Final 04/20/21 14:10 Urine Catheter - Prieto Streptococcus pneumoniae Antigen (M - Final Physical Exam Narrative GENERAL: Unresponsive on the vent HEENT: Atraumatic; edema of the conjunctiva EYES; Anicteric, Normal Conjunctiva NECK; supple, normal thyroid, RESPIRATORY: Diminished to auscultation CARDIOVASCULAR: Regular S1 S2, GI: soft, normoactive bowel sounds, : No Renal angle tenderness; EXTREMITIES: Bipedal edema, no clubbing, MUSCULOSKELETAL: no muscle wasting NEURO: Unresponsive on the vent SKIN: Significant excoriation in the perineum Assessment & Plan Assessment/Plan (1) Cardiopulmonary arrest with successful resuscitation: PLAN: Patient is a 66-year-old gentleman with significant comorbidities including GBS with subsequent significant debility with chronic excoriations and wounds involving the perineum who was brought in after found patient unresponsive. EMS upon arrival found patient to be in PEA successfully re suscitated with ROSC. He apparently lost pulse in route to the ED and CPR had to be initiated found to be in wide-complex tachycardia and was subsequently resuscitated with ROSC is intubated and admitted to the intensive care unit. 1. Acute cardiopulmonary arrest ?Patient was successfully resuscitated using ACLS protocol with ROSC S. Subsequently left on the vent. Etiology of patient acute cardiopulmonary arrest not clear at this point. Consult was placed to cardiology. 2. Acute hypoxic respiratory failure ?Secondary to above patient had to be intubated and admitted to the intensive c are unit with consultation placed to crossing flagman. ?04/23/2021; patient remains on the vent by family to decide after 72 hours about continuation of care ?04/24/2021; No change in clinical condition. Family meeting plan for this a.m. 3. Suspected pneumonia ?Chest x-ray obtained demonstrated patchy bibasilar opacities. Patient was started on Zosyn and vancomycin 4. Metabolic encephalopathy ?Patient was exhibiting signs of anoxic brain injury with myoclonic episodes. Underwent EEG -04/22/2021;Patient remains on the vent without sedation. EEG obtained the day prior consistent with anoxic brain injury 5. Acute kidney injury ?Superimposed on chronic kidney disease stage III, monitoring BMP 6. 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 Sacral decubitus ulcer With significant perinea excoriation. Consult placed wound care nurse 8. Right lower extremity skin ulceration ?Appears to be healing 9. Diabetes mellitus type II -With complications including diabetic nephropathy; patient on Accu-Cheks every 6 with coverage 10. Chronic kidney disease stage IIIb ?Secondary to diabetic nephropathy patient presented with impaired kidney function management as discussed above 11. Essential hypertension ?Antihypertensives on hold 12. Class III obesity with BMI of 41.8 ?Complicating care 13. Obstructive sleep apnea ?Patient was on CPAP at night prior to his admission 14. COPD Per history 15. DVT prophylaxis ?SC heparin 16. Paroxysmal SVT ?Case was discussed with cardiology consideration given to started either amiodarone or digoxin will however wait for family to decide prior to making final decisions 17. Hypernatremia ?Adjusted patient fluids subsequent monitoring with BMPs ordered Charges/Coding Visit Charges Inpatient E&M: 24729 Subs Hosp L2
[2021-04-24 07:51] LABS: Allen Test Positive; Base Excess 6 mmol/L (-2 to +2); Bicarbonate 27.8 mmol/L (22-26); Blood Gas Specimen Type ART; FI02 25; Mode AC; O2 Delivery Device Adult Vent; PEEP 5; PO2 226 mmHG (75-100); RR 16; SITE L Radial; SO2 100 % (95-99); Total Carbon Dioxide 29 mmol/L; Vt 500; pH 7.59 (7.35-7.45)
[2021-04-24] MEDS: Potassium Chloride 20mEq/100mL 20 MEQ/100 ML IV.SOLN. 100 MEQ IV BOLUS ×2 (09:26→10:29)
[2021-04-24] MEDS: Nystatin Powder 15gm Bottle 1 APPLIC TOPICAL ×2 (09:28→21:51)
[2021-04-24] MEDS: BRIMONIDINE 0.2% 5ML BOTTLE 1 DRP OPHTHALMIC ×2 (09:28→21:51)
[2021-04-24] MEDS: Dorzolamide HCL/Timolol 10 ml Bottle 1 DRP OPHTHALMIC ×2 (09:28→21:50)
[2021-04-24] MEDS: Chlorhexidine 15 ML PO ×2 (09:29→22:00)
[2021-04-24 12:36] LABS: Bedside Glucose 106 mg/dL (70-110)
[2021-04-24 15:03] LABS: Vancomycin, Random Level 26.2 ug/mL (0.0-15.0)
--- NOTE | 2021-04-24 15:11 | PN.CARD_ITS ---
Objective Data Vital Signs: Vital Signs Temp Pulse Resp BP Pulse Ox 100.3 F H 162 H 16 91/65 98 04/24/21 12:00 04/24/21 12:29 04/24/21 12:00 04/24/21 12:29 04/24/21 12:00 Oxygen Flow Rate (L/min) 100 Oxygen Delivery Method Mechanical Ventilator Weight: 256 lb 9.889 oz Body Mass Index (BMI) 41.8 Intake & Output: Intake and Output for Last 24 Hours 04/22/21 04/23/21 04/24/21 23:59 23:59 23:59 Intake Total 1070 / 1070 1230 / 1230 813.33 / 813.33 Output Total 2390 / 2690 2045 / 2445 2270 / 2270 Balance -1320 / -1620 -815 / -1215 -1456.67 / -1456.67 Lab / Micro Data Result Diagrams: 04/24/21 03:05 04/24/21 03:05 Labs: Laboratory Results - last 24 hr 04/23/21 18:15: POC Glucose 84 04/24/21 00:09: POC Glucose 86 04/24/21 03:05: Vancomycin Trough 24.2 H 04/24/21 03:05: WBC 11.0, RBC 3.79 L, Hgb 9.9 L, Hct 30.7 L, MCV 81.0, MCH 26.1 L, MCHC 32.2, RDW Std Deviation 54.5 H, RDW Coeff of Johanna 18.7 H, Plt Count 116 L , MPV 10.2, Immature Gran % (Auto) 0.600, Neut % (Auto) 77.9 H, Lymph % (Auto) 9.9 L, [place] % (Auto) 10.6 H, Eos % (Auto) 0.9, Baso % (Auto) 0.1, Absolute Neuts (auto) 8.5 H, Absolute Lymphs (auto) 1.09, Nucleated RBC % 1.0 04/24/21 03:05: Sodium 149 H, Potassium 3.2 L, Chloride 113 H, Carbon Dioxide 30.0, Anion Gap 6, BUN 34 H, Creatinine 1.47 H, Estim Creat Clear Calc 44.00, Est GFR (MDRD) Af Amer 61, Est GFR (MDRD) Non-Af 51 L, BUN/Creatinine Ratio 23.1 H, Glucose 79, Calcium 8.3 L, Total Bilirubin 1.20 H, AST 108 H, ALT 183 H, Alkaline Phosphatase 84, Total Protein 6.0 L, Albumin 1.8 L, Globulin 4.2, Albumin/Globulin Ratio 0.4 L 04/24/21 12:28: POC Glucose 106 04/24/21 14:40: Random Vancomycin 26.2 H Micro: Microbiology 04/20/21 21:29 Blood Culture (Wb) - Venous Bacteria Detection (PCR) - Final Coag Negative Staph 04/20/21 21:29 Blood Culture (Wb) - Venous Blood Culture - Final Acinetobacter baumannii Meth. resistant Staph. aureus Vancomycin Resist. E. faecalis Staphylococcus epidermidis 04/21/21 00:54 Sputum, Induced/Lukens Gram Stain - Final 04/21/21 00:54 Sputum, Induced/Lukens Respiratory Culture - Final Pseudomonas aeroginosa Meth. resistant Staph. aureus Presumptive C albicans 04/20/21 20:18 Blood Culture (Wb) - Left Wrist Blood Culture - Preliminary No growth in 48 hours. ABG Data ABG results: ABG 04/24/21 07:45 Specimen Type ART Sample Site L Radial pH 7.59 H Bicarbonate Actual 27.8 H Total CO2 29 Base Excess 6 H O2 Saturation 100 H O2 % 25 ABG pCO2 29.0 L ABG pO2 226 H [place] Test Positive Respiration Rate 16 O2 Delivery Device Adult Vent Vent Mode AC Tidal Volume 500 POC PEEP 5 Cardiology Labs/Tests 04/24/21 03:05: WBC 11.0, RBC 3.79 L, Hgb 9.9 L, Hct 30.7 L, MCV 81.0, MCH 26.1 L, MCHC 32.2, Plt Count 116 L, MPV 10.2, Immature Gran % (Auto) 0.600, Neut % (Auto) 77.9 H, Lymph % (Auto) 9.9 L, [place] % (Auto) 10.6 H, Eos % (Auto) 0.9, Baso % (Auto) 0.1, Absolute Neuts (auto) 8.5 H, Nucleated RBC % 1.0 04/24/21 03:05: Sodium 149 H, Potassium 3.2 L, Chloride 113 H, Carbon Dioxide 30.0, Anion Gap 6, BUN 34 H, Creatinine 1.47 H, Est GFR (MDRD) Af Amer 61, Est GFR (MDRD) Non-Af 51 L, BUN/Creatinine Ratio 23.1 H, Glucose 79, Calcium 8.3 L, Total Bilirubin 1.20 H 04/24/21 07:45: pH 7.59 H, Bicarbonate Actual 27.8 H, Base Excess 6 H, O2 Saturation 100 H, ABG pCO2 29.0 L, ABG pO2 226 H, [place] Test Positive Rhythm: EKG: ECHO: Stress Test: Cardiac Cath: PCI: CT Surgery: Holter monitor: EPS: PPM: CXR: Chest CT Scan:
--- NOTE | 2021-04-24 15:23 | PN.CARD_ITS ---
Subjective Subjective Family at bedside, decided for the plan tomorrow No change in patient clinical condition Objective Data Vital Signs: Vital Signs Temp Pulse Resp BP Pulse Ox 100.3 F H 162 H 16 91/65 98 04/24/21 12:00 04/24/21 12:29 04/24/21 12:00 04/24/21 12:29 04/24/21 12:00 Oxygen Flow Rate (L/min) 100 Oxygen Delivery Method Mechanical Ventilator Weight: 256 lb 9.889 oz Body Mass Index (BMI) 41.8 Intake & Output: Intake and Output for Last 24 Hours 04/22/21 04/23/21 04/24/21 23:59 23:59 23:59 Intake Total 1070 / 1070 1230 / 1230 813.33 / 813.33 Output Total 2390 / 2690 2045 / 2445 2270 / 2270 Balance -1320 / -1620 -815 / -1215 -1456.67 / -1456.67 Lab / Micro Data Result Diagrams: 04/24/21 03:05 04/24/21 03:05 Labs: Laboratory Results - last 24 hr 04/23/21 18:15: POC Glucose 84 04/24/21 00:09: POC Glucose 86 04/24/21 03:05: Vancomycin Trough 24.2 H 04/24/21 03:05: WBC 11.0, RBC 3.79 L, Hgb 9.9 L, Hct 30.7 L, MCV 81.0, MCH 26.1 L, MCHC 32.2, RDW Std Deviation 54.5 H, RDW Coeff of Johanna 18.7 H, Plt Count 116 L , MPV 10.2, Immature Gran % (Auto) 0.600, Neut % (Auto) 77.9 H, Lymph % (Auto) 9.9 L, [place] % (Auto) 10.6 H, Eos % (Auto) 0.9, Baso % (Auto) 0.1, Absolute Neuts (auto) 8.5 H, Absolute Lymphs (auto) 1.09, Nucleated RBC % 1.0 04/24/21 03:05: Sodium 149 H, Potassium 3.2 L, Chloride 113 H, Carbon Dioxide 30.0, Anion Gap 6, BUN 34 H, Creatinine 1.47 H, Estim Creat Clear Calc 44.00, Est GFR (MDRD) Af Amer 61, Est GFR (MDRD) Non-Af 51 L, BUN/Creatinine Ratio 23.1 H, Glucose 79, Calcium 8.3 L, Total Bilirubin 1.20 H, AST 108 H, ALT 183 H, Alkaline Phosphatase 84, Total Protein 6.0 L, Albumin 1.8 L, Globulin 4.2, Albumin/Globulin Ratio 0.4 L 04/24/21 12:28: POC Glucose 106 04/24/21 14:40: Random Vancomycin 26.2 H Micro: Microbiology 04/20/21 21:29 Blood Culture (Wb) - Venous Bacteria Detection (PCR) - Final Coag Negative Staph 04/20/21 21:29 Blood Culture (Wb) - Venous Blood Culture - Final Acinetobacter baumannii Meth. resistant Staph. aureus Vancomycin Resist. E. faecalis Staphylococcus epidermidis 04/21/21 00:54 Sputum, Induced/Lukens Gram Stain - Final 04/21/21 00:54 Sputum, Induced/Lukens Respiratory Culture - Final Pseudomonas aeroginosa Meth. resistant Staph. aureus Presumptive C albicans 04/20/21 20:18 Blood Culture (Wb) - Left Wrist Blood Culture - Preliminary No growth in 48 hours. ABG Data ABG results: ABG 04/24/21 07:45 Specimen Type ART Sample Site L Radial pH 7.59 H Bicarbonate Actual 27.8 H Total CO2 29 Base Excess 6 H O2 Saturation 100 H O2 % 25 ABG pCO2 29.0 L ABG pO2 226 H Frederick Test Positive Respiration Rate 16 O2 Delivery Device Adult Vent Vent Mode AC Tidal Volume 500 POC PEEP 5 Cardiology Labs/Tests 04/24/21 03:05: WBC 11.0, RBC 3.79 L, Hgb 9.9 L, Hct 30.7 L, MCV 81.0, MCH 26.1 L, MCHC 32.2, Plt Count 116 L, MPV 10.2, Immature Gran % (Auto) 0.600, Neut % (Auto) 77.9 H, Lymph % (Auto) 9.9 L, [place] % (Auto) 10.6 H, Eos % (Auto) 0.9, Baso % (Auto) 0.1, Absolute Neuts (auto) 8.5 H, Nucleated RBC % 1.0 04/24/21 03:05: Sodium 149 H, Potassium 3.2 L, Chloride 113 H, Carbon Dioxide 30.0, Anion Gap 6, BUN 34 H, Creatinine 1.47 H, Est GFR (MDRD) Af Amer 61, Est GFR (MDRD) Non-Af 51 L, BUN/Creatinine Ratio 23.1 H, Glucose 79, Calcium 8.3 L, Total Bilirubin 1.20 H 04/24/21 07:45: pH 7.59 H, Bicarbonate Actual 27.8 H, Base Excess 6 H, O2 Saturation 100 H, ABG pCO2 29.0 L, ABG pO2 226 H, [place] Test Positive Rhythm: EKG: ECHO: Stress Test: Cardiac Cath: PCI: CT Surgery: Holter monitor: EPS: PPM: CXR: Chest CT Scan: Assessment & Plan Assessment/Plan (1) Cardiopulmonary arrest with successful resuscitation: PLAN: Who had cardiopulmonary arrest with successful resuscitation Patient has a multiple medical comorbidities with history of GBS with chronic excoriation and wound/perineum and decubitus ulcer Addition patient had diabetes mellitus with diabetic polyneuropathy with chronic ulcer of the great toe of the right foot Evidently patient was found unresponsive by his and brought into the hospital has CPR for PEA Patient has been unresponsive and has been on a ventilator. Has right lower lobe pulmonary infiltrate and acute respiratory failure with hypoxia Patient has severe metabolic encephalopathy with anoxic brain injury with EEG confirm anoxic brain injury Cardiac care plan recommendations; This patient had a history of PSVT Cardiac rhythm remained stable/normal sinus rhythm Has anoxic encephalopathy and awaiting family decision regarding long-term plan/comfort care
[2021-04-24] MEDS: Alteplase 2 MG/2 ML Vial IV ×3 (18:01→18:02)
[2021-04-24 18:10] LABS: Bedside Glucose 107 mg/dL (70-110)
--- NOTE | 2021-04-24 18:32 | NURSING ---
all 3 lumens of left subclavian TLC flushed but did not have a blood return. Cath flow instilled in all 3 lumens at 1800. White lumen noted to have blood return at 1830. Blue and brown lumens did not have blood return. Cath flow left dwelling in the blue and brown lumens according to policy. 10ml blood aspirated from white lumen, flushed with 10ml saline and placed a green curos cap on the end per policy.
--- NOTE | 2021-04-24 20:54 | NURSING ---
Blue and brown lumens able to draw blood. 10ccs of blood withdrawn from each lumen and then flushed with 100ccs normal saline. Green curos cap put on each lumen per policy.
[2021-04-24] MEDS: Latanoprost 0.005% 1 Bottle 1 DRP OPHTHALMIC (21:50)
[2021-04-25] VITALS (58 sets, daily range): BP systolic 63–188; BP diastolic 25–129; PULSE 70–171; RESP 13–17; TEMP 37.8–38.1; O2SAT 91–100
[2021-04-25] MEDS: 0.9% Saline Lock 10 ML Syringe IV ×3 (00:24→22:05)
[2021-04-25] MEDS: Metoprolol Tartrate 5 MG/5 ML Vial IV ×3 (00:29→10:49)
[2021-04-25 00:47] LABS: Bedside Glucose 100 mg/dL (70-110)
--- NOTE | 2021-04-25 05:08 | NURSING ---
FMS inserted at 0300. Pt. tolerated well. Unable to collect stool sample at this time due to stool soaking into pad underneath pt.
[2021-04-25 05:55] LABS: Bedside Glucose 111 mg/dL (70-110)
[2021-04-25 06:27] LABS: Absolute Lymphocyte Count 1.17 X10^3/uL (0.83-4.51); Absolute Neutrophil Count 9.9 X10^3/uL (2.0-7.7); Basophil# 0.02 X10^3/uL; Basophil% 0.2 % (0-1); Eosinophil# 0.47 X10^3/uL; Eosinophils% 3.6 % (0-5); Hematocrit 30.1 % (40-54); Hemoglobin 9.6 g/dL (13.0-16.5); Lymphocyte # 1.17 X10^3/ul (0.83-4.51); Lymphocyte % 9.1 % (19-41); Mean Corp Hgb Conc 31.9 g/dL (32-36); Mean Corpuscular Hgb 25.9 pg (27.0-32.0); Mean Corpuscular Volume 81.1 fL (80-94); Mean Platelet Vol. 10.8 fl (6.2-12.0); Monocyte# 1.27 X10^3/uL; Monocyte% 9.9 % (0-10); NRBC Flagged by Analyzer 0.4 % (0-5); Neutrophil # 9.87 X10^3/uL (2.7-7.7); Neutrophil % 76.6 % (47-70); Platelet Count 105 K/mm3 (150-450); RBC Distribution Width CV 18.9 % (11.6-14.6); RBC Distribution Width SD 54.7 fl (35.1-43.9); Red Blood Count 3.71 M/mm3 (4.6-6.2); White Blood Count 12.9 K/mm3 (4.4-11.0)
--- NOTE | 2021-04-25 06:36 | PCM.PN.INT ---
Assessment & Plan Assessment/Plan (1) Cardiopulmonary arrest with successful resuscitation: PLAN: RECOMMENDATIONS: 1. Continue current supportive measures including invasive mechanical ventilatory support. 2. Wean FiO2/PEEP for saturations greater than 90%. 3. Fentanyl for pain control. 4. Continue antimicrobials as ordered. 5. Continue D5W and potassium supplementation. 6. Continue appropriate ICU prophylaxis. 7. Ongoing goals of care discussion with the patient's family. IMPRESSIONS: 1. Acute on chronic respiratory failure status post out of hospital cardiac arrest The patient presented to the ED on April 20 following an out of hospital PEA cardiac arrest with successful ROSC. Approximately 20 minutes elapsed from onset of arrest to successful return of spontaneous circulation. As a consequence, it does appear that the patient has sustained some form of anoxic brain injury. In addition, the patient does have known obstructive lung disease and likely has an underlying pulmonary infectious etiology with staph aureus and Pseudomonas isolated from sputum. Accordingly, the patient will be continued on antimicrobials. He will also be continued on assist control mode of mechanical ventilation with FiO2 and PEEP weaned to maintain oxygen saturations at or above 90%. 2. Encephalopathy Likely secondary to anoxia sustained as a consequence of his cardiac arrest. We will continue current supportive measures as noted above. Findings noted on EEG were consistent with anoxic brain injury. The patient has been neurologically unchanged for multiple consecutive days. 3. Acute on chronic kidney disease/acute liver injury Improving. Likely secondary to global hypoperfusion in the setting of cardiac arrest. Anticipate improvement in organ function with stabilization of hemodynamics. Continue to monitor urine output. No current indication for renal replacement therapy. 4. Hypernatremia/hypokalemia Continue D5W with potassium supplementation as ordered. 5. History of chronic wounds Continue local wound care. 6. History of SVT/chronic pain syndrome/morbid obesity/heart failure with preserved ejection fraction/ADELAIDE/COPD Complicates care, management, recovery and prognosis. Continue supportive measures as noted above. TIME: 32 minutes of critical care time, independent of procedures, was spent addressing the patient's acute on chronic respiratory failure status post cardiac arrest, anoxic encephalopathy, acute on chronic kidney disease, acute liver injury, review of all data and collaboration with the care team. Subjective Subjective The patient was seen and examined at the bedside this morning. Events from the last 24 hours have been reviewed. The patient currently has a low-grade fever but remains otherwise hemodynamically stable on assist control mode mechanical ventilation with an FiO2 requirement of 25% and PEEP of 5. Nursing staff did report thick secretions from his endotracheal tube overnight. He is currently documented to be overall net +2.1 L for the hospitalization. Platelet count is down to 105,000 this morning. Sodium is 147 with a chloride of 113. Potassium is low at 2.9. Creatinine is stable at 1.4. The patient remains neurologically unchanged from previous. I did call and speak with the patient's son again this morning via telephone. I explained to him that there has been no interval change in the patient's neurologic status. I also brought up the idea of transitioning the patient to DNR CCA. He indicated that he will discuss this topic with his mother. Over concerns that the patient may be experiencing pain, I also recommended that we consider placing him on fentanyl for symptom relief. He is agreeable to this. He again indicated to me that his family will likely be considering palliative withdrawal of life support either Monday or Monday. Objective Data Objective Data The patient's most recent lab work, culture data and imaging studies have all been personally reviewed. Surface echocardiogram demonstrated an ejection fraction of 45%. Moderate RV dilation and moderate global RV systolic dysfunction was noted. Right ventricular systolic pressure was estimated to be 51 mmHg. Sputum culture was positive for Pseudomonas and MRSA. Vital Signs: Vital Signs Temp Pulse Resp BP Pulse Ox 100.4 F H 70 16 134/79 H 91 04/25/21 05:00 04/25/21 05:33 04/25/21 05:00 04/25/21 05:00 04/25/21 05:00 Oxygen Flow Rate (L/min) 100 Oxygen Delivery Method Mechanical Ventilator Weight: 115.4 kg Body Mass Index (BMI) 41.8 Intake & Output: Intake and Output for Last 24 Hours 04/23/21 04/24/21 04/25/21 23:59 23:59 23:59 Intake Total 1230 / 1230 2033.33 / 2063.33 1110 / 1110 Output Total 2045 / 2445 3170 / 3420 1100 / 1100 Balance -815 / -1215 -1136.67 / -1356.67 Lab / Micro Data Attestation: I reviewed the patient's lab results. Result Diagrams: 04/25/21 04:00 04/25/21 04:00 Labs: Laboratory Results - last 24 hr 04/24/21 12:28: POC Glucose 106 04/24/21 14:40: Random Vancomycin 26.2 H 04/24/21 17:50: POC Glucose 107 04/25/21 00:23: POC Glucose 100 04/25/21 04:00: WBC 12.9 H, RBC 3.71 L, Hgb 9.6 L, Hct 30.1 L, MCV 81.1, MCH 25.9 L, MCHC 31.9 L, RDW Std Deviation 54.7 H, RDW Coeff of Johanna 18.9 H, Plt Count 105 L, MPV 10.8, Immature Gran % (Auto) 0.600, Neut % (Auto) 76.6 H, Lymph % (Auto) 9.1 L, [place] % (Auto) 9.9, Eos % (Auto) 3.6, Baso % (Auto) 0.2, Absolute Neuts (auto) 9.9 H, Absolute Lymphs (auto) 1.17, Nucleated RBC % 0.4 04/25/21 05:49: POC Glucose 111 H Micro: Microbiology 04/20/21 21:29 Blood Culture (Wb) - Venous Bacteria Detection (PCR) - Final Coag Negative Staph 04/20/21 21:29 Blood Culture (Wb) - Venous Blood Culture - Final Acinetobacter baumannii Meth. resistant Staph. aureus Vancomycin Resist. E. faecalis Staphylococcus epidermidis 04/21/21 00:54 Sputum, Induced/Lukens Gram Stain - Final 04/21/21 00:54 Sputum, Induced/Lukens Respiratory Culture - Final Pseudomonas aeroginosa Meth. resistant Staph. aureus Presumptive C albicans 04/20/21 20:18 Blood Culture (Wb) - Left Wrist Blood Culture - Preliminary No growth in 48 hours. 04/20/21 22:46 Sputum, Tracheal Aspirate Gram Stain - Final 04/20/21 22:46 Sputum, Tracheal Aspirate Respiratory Culture - Final Meth. resistant Staph. aureus Pseudomonas aeroginosa 04/20/21 14:10 Urine Catheter - Prieto Legionella Antigen - Final 04/20/21 14:10 Urine Catheter - Prieto Streptococcus pneumoniae Antigen (M - Final ABG Data ABG results: ABG 04/24/21 07:45 Specimen Type ART Sample Site L Radial pH 7.59 H Bicarbonate Actual 27.8 H Total CO2 29 Base Excess 6 H O2 Saturation 100 H O2 % 25 ABG pCO2 29.0 L ABG pO2 226 H [place] Test Positive Respiration Rate 16 O2 Delivery Device Adult Vent Vent Mode AC Tidal Volume 500 POC PEEP 5 Physical Exam Const Constitutional Narrative: The patient remains comatose on the ventilator. General Appearance: intubated and patient mechanically ventilated Exam Limitations: altered mental status Nutritional Appearance: morbidly obese HEENT normocephalic and head/scalp atraumatic Mouth: endotracheal tube in place and OG tube in place Eyes Eyes Narrative: Sluggish pupillary response bilaterally. Neck supple General: trachea midline and CVC in place Resp Resp Narrative: Breathing at set rate on ventilator. Auscultation: diminished lung sounds; Negative for rales, rhonchi or wheezes Cardio S1 normal heart sound and S2 normal heart sound Rate: tachycardic GI normal to inspection, nondistended, normoactive bowel sounds Extremity no clubbing, cyanosis or edema Skin Wound Narrative: Multiple wounds scattered over lower extremities and perineum. Neuro Neuro Narrative: Comatose on ventilator. Unchanged from previous. Charges/Coding Procedures Hospitalists Procedures: [id number] Critial Care 1st Hr
[2021-04-25 06:43] LABS: Anion Gap 6 (5-15); BUN 27 mg/dL (7-18); BUN/Creat Ratio 19.3 RATIO (10-20); Calcium,Total 7.7 mg/dL (8.5-10.1); Chloride 113 mmol/L (98-107); EST Glomerular Filtration Rate 54 mL/min (>60); Est Glom Filt Rate - Afr Amer 65 mL/min (>60); Glucose 108 mg/dL (74-106); Potassium 2.9 mmol/L (3.5-5.1); Sodium Level 147 mmol/L (136-145)
[2021-04-25] MEDS: Potassium Chloride Oral Soln 20 MEQ/15 ML UDC 40 MEQ PO (07:21)
[2021-04-25] MEDS: Potassium Chloride 20mEq/100mL 20 MEQ/100 ML IV.SOLN. 50 MEQ IV BOLUS ×2 (07:21→08:55)
[2021-04-25] MEDS: Chlorhexidine 15 ML PO ×2 (07:22→22:11)
--- NOTE | 2021-04-25 07:29 | PN.HOSP_ITS ---
Subjective Subjective Patient remains unresponsive on the vent. Family discussions were held yesterday. Family to decide on the next line of action. Patient kidney function remains fairly stable. Potassium down to 2.9. Hemoglobin down to 9.5 Objective Data Objective Data Vital Signs: Vital Signs Temp Pulse Resp BP Pulse Ox 100.4 F H 165 H 16 145/93 H 100 04/25/21 07:00 04/25/21 07:10 04/25/21 07:10 04/25/21 07:00 04/25/21 07:10 Oxygen Flow Rate (L/min) 100 Oxygen Delivery Method Mechanical Ventilator Weight: 115.4 kg Body Mass Index (BMI) 41.8 Intake & Output: Intake and Output for Last 24 Hours 04/23/21 04/24/21 04/25/21 23:59 23:59 23:59 Intake Total 1230 / 1230 2033.33 / 2063.33 1110 / 1110 Output Total 2045 / 2445 3170 / 3420 1100 / 1100 Balance -815 / -1215 -1136.67 / -1356.67 Lab / Micro Data Result Diagrams: 04/25/21 04:00 04/25/21 04:00 Labs: Laboratory Results - last 24 hr 04/24/21 12:28: POC Glucose 106 04/24/21 14:40: Random Vancomycin 26.2 H 04/24/21 17:50: POC Glucose 107 04/25/21 00:23: POC Glucose 100 04/25/21 04:00: WBC 12.9 H, RBC 3.71 L, Hgb 9.6 L, Hct 30.1 L, MCV 81.1, MCH 25.9 L, MCHC 31.9 L, RDW Std Deviation 54.7 H, RDW Coeff of Johanna 18.9 H, Plt Count 105 L, MPV 10.8, Immature Gran % (Auto) 0.600, Neut % (Auto) 76.6 H, Lymph % (Auto) 9.1 L, [place] % (Auto) 9.9, Eos % (Auto) 3.6, Baso % (Auto) 0.2, Absolute Neuts (auto) 9.9 H, Absolute Lymphs (auto) 1.17, Nucleated RBC % 0.4 04/25/21 04:00: Sodium 147 H, Potassium 2.9 L, Chloride 113 H, Carbon Dioxide 28.0, Anion Gap 6, BUN 27 H, Creatinine 1.40 H, Estim Creat Clear Calc 46.20, Est GFR (MDRD) Af Amer 65, Est GFR (MDRD) Non-Af 54 L, BUN/Creatinine Ratio 19.3, Glucose 108 H, Calcium 7.7 L 04/25/21 05:49: POC Glucose 111 H Micro: Microbiology 04/20/21 21:29 Blood Culture (Wb) - Venous Bacteria Detection (PCR) - Final Coag Negative Staph 04/20/21 21:29 Blood Culture (Wb) - Venous Blood Culture - Final Acinetobacter baumannii Meth. resistant Staph. aureus Vancomycin Resist. E. faecalis Staphylococcus epidermidis 04/21/21 00:54 Sputum, Induced/Lukens Gram Stain - Final 04/21/21 00:54 Sputum, Induced/Lukens Respiratory Culture - Final Pseudomonas aeroginosa Meth. resistant Staph. aureus Presumptive C albicans 04/20/21 20:18 Blood Culture (Wb) - Left Wrist Blood Culture - Preliminary No growth in 48 hours. 04/20/21 22:46 Sputum, Tracheal Aspirate Gram Stain - Final 04/20/21 22:46 Sputum, Tracheal Aspirate Respiratory Culture - Final Meth. resistant Staph. aureus Pseudomonas aeroginosa 04/20/21 14:10 Urine Catheter - Prieto Legionella Antigen - Final 04/20/21 14:10 Urine Catheter - Prieto Streptococcus pneumoniae Antigen (M - Final ABG Data ABG results: ABG 04/24/21 07:45 Specimen Type ART Sample Site L Radial pH 7.59 H Bicarbonate Actual 27.8 H Total CO2 29 Base Excess 6 H O2 Saturation 100 H O2 % 25 ABG pCO2 29.0 L ABG pO2 226 H [place] Test Positive Respiration Rate 16 O2 Delivery Device Adult Vent Vent Mode AC Tidal Volume 500 POC PEEP 5 Physical Exam Narrative GENERAL: Unresponsive on the vent HEENT: Atraumatic; edema of the conjunctiva EYES; Anicteric, Normal Conjunctiva NECK; supple, normal thyroid, RESPIRATORY: Diminished to auscultation CARDIOVASCULAR: Regular S1 S2, GI: soft, normoactive bowel sounds, : No Renal angle tenderness; EXTREMITIES: Bipedal edema, no clubbing, MUSCULOSKELETAL: no muscle wasting NEURO: Unresponsive on the vent SKIN: Significant excoriation in the perineum Assessment & Plan Assessment/Plan (1) Cardiopulmonary arrest with successful resuscitation: PLAN: Patient is a 66-year-old gentleman with significant comorbidities including GBS with subsequent significant debility with chronic excoriations and wounds involving the perineum who was brought in after found patient unresponsive. EMS upon arrival found patient to be in PEA successfully resuscitated with ROSC. He apparently lost pulse in route to the ED and CPR had to be initiated found to be in wide-complex tachycardia and was subsequently resuscitated with ROSC is intubated and admitted to the intensive care unit. 1. Acute cardiopulmonary arrest ?Patient was successfully resuscitated using ACLS protocol with ROSC S. Subsequently left on the vent. Etiology of patient acute cardiopulmonary arrest not clear at this point. Consult was placed to cardiology. 2. Acute hypoxic respiratory failure ?Secondary to above patient had to be intubated and admitted to the intensive care unit with consultation placed to obstetrician and gynaecologist. ?04/23/2021; patient remains on the vent by family to decide after 72 hours about continuation of care ?04/24/2021; No change in clinical condition. Family meeting plan for this a.m. 3. Suspected pneumonia ?Chest x-ray obtained demonstrated patchy bibasilar opacities. Patient was s tarted on Zosyn and vancomycin 4. Metabolic encephalopathy ?Patient was exhibiting signs of anoxic brain injury with myoclonic episodes. Underwent EEG -04/22/2021;Patient remains on the vent without sedation. EEG obtained the day prior consistent with anoxic brain injury 5. Acute kidney injury ?Superimposed on chronic kidney disease stage III, monitoring BMP -04/25/2021; kidney function remains fairly stable 6. Hypokalemia -Corrected per protocol 7. Sacral decubitus ulcer With significant perinea excoriation. Consult placed wound care nurse 8. Right lower extremity skin ulceration ?Appears to be healing 9. Diabetes mellitus type II -With complications including diabetic nephropathy; patient on Accu-Cheks every 6 with coverage 10. Chronic kidney disease stage IIIb ?Secondary to diabetic nephropathy patient presented with impaired kidney function management as discussed above 11. Essential hypertension ?Antihypertensives on hold 12. Class III obesity with BMI of 41.8 ?Complicating care 13. Obstructive sleep apnea ?Patient was on CPAP at night prior to his admission 14. COPD Per history 15. DVT prophylaxis ?SC heparin 16. Paroxysmal SVT ?Case was discussed with cardiology consideration given to started either amiodarone or digoxin will however wait for family to decide prior to making final decisions 17. Hypernatremia ?Adjusted patient fluids subsequent monitoring with BMPs ordered 6. 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
[2021-04-25] MEDS: CHLORHEXIDINE GLUC 2% CLOTH 1 EACH TOWELETTE TOPICAL (08:06)
[2021-04-25] MEDS: Dorzolamide HCL/Timolol 10 ml Bottle 1 DRP OPHTHALMIC ×2 (08:11→22:06)
[2021-04-25] MEDS: Nystatin Powder 15gm Bottle 1 APPLIC TOPICAL ×2 (08:11→22:07)
[2021-04-25] MEDS: BRIMONIDINE 0.2% 5ML BOTTLE 1 DRP OPHTHALMIC ×2 (08:11→22:06)
[2021-04-25 11:05] LABS: Bedside Glucose 97 mg/dL (70-110)
--- NOTE | 2021-04-25 13:07 | PCM.PN.CARD ---
Subjective Subjective Patient seen and evaluated today and discussed with the nursing staff Remains unresponsive on the ventilator. Family still waiting to make decision Objective Data Vital Signs: Vital Signs Temp Pulse Resp BP Pulse Ox 100.0 F H 152 H 16 88/70 L 98 04/25/21 12:00 04/25/21 12:00 04/25/21 12:00 04/25/21 12:00 04/25/21 12:00 Oxygen Flow Rate (L/min) 100 Oxygen Delivery Method Mechanical Ventilator Weight: 254 lb 6.615 oz Body Mass Index (BMI) 41.8 Intake & Output: Intake and Output for Last 24 Hours 04/23/21 04/24/21 04/25/21 23:59 23:59 23:59 Intake Total 1230 / 1230 2033.33 / 2063.33 1517.50 / 1517.50 Output Total 2045 / 2445 3170 / 3420 2225 / 2225 Balance -815 / -1215 -1136.67 / -1356.67 -707.50 / -707.50 Lab / Micro Data Result Diagrams: 04/25/21 04:00 04/25/21 04:00 Labs: Laboratory Results - last 24 hr 04/24/21 14:40: Random Vancomycin 26.2 H 04/24/21 17:50: POC Glucose 107 04/25/21 00:23: POC Glucose 100 04/25/21 04:00: WBC 12.9 H, RBC 3.71 L, Hgb 9.6 L, Hct 30.1 L, MCV 81.1, MCH 25.9 L, MCHC 31.9 L, RDW Std Deviation 54.7 H, RDW Coeff of Johanna 18.9 H, Plt Count 105 L, MPV 10.8, Immature Gran % (Auto) 0.600, Neut % (Auto) 76.6 H, Lymph % (Auto) 9.1 L, [place] % (Auto) 9.9, Eos % (Auto) 3.6, Baso % (Auto) 0.2, Absolute Neuts (auto) 9.9 H, Absolute Lymphs (auto) 1.17, Nucleated RBC % 0.4 04/25/21 04:00: Sodium 147 H, Potassium 2.9 L, Chloride 113 H, Carbon Dioxide 28.0, Anion Gap 6, BUN 27 H, Creatinine 1.40 H, Estim Creat Clear Calc 46.20, Est GFR (MDRD) Af Amer 65, Est GFR (MDRD) Non-Af 54 L, BUN/Creatinine Ratio 19.3, Glucose 108 H, Calcium 7.7 L 04/25/21 05:49: POC Glucose 111 H 04/25/21 10:48: POC Glucose 97 Micro: Microbiology 04/20/21 21:29 Blood Culture (Wb) - Venous Bacteria Detection (PCR) - Final Coag Negative Staph 04/20/21 21:29 Blood Culture (Wb) - Venous Blood Culture - Final Acinetobacter baumannii Meth. resistant Staph. aureus Vancomycin Resist. E. faecalis Staphylococcus epidermidis Cardiology Labs/Tests 04/25/21 04:00: WBC 12.9 H, RBC 3.71 L, Hgb 9.6 L, Hct 30.1 L, MCV 81.1, MCH 25.9 L, MCHC 31.9 L, Plt Count 105 L, MPV 10.8, Immature Gran % (Auto) 0.600, Neut % (Auto) 76.6 H, Lymph % (Auto) 9.1 L, [place] % (Auto) 9.9, Eos % (Auto) 3.6, Baso % (Auto) 0.2, Absolute Neuts (auto) 9.9 H, Nucleated RBC % 0.4 04/25/21 04:00: Sodium 147 H, Potassium 2.9 L, Chloride 113 H, Carbon Dioxide 28.0, Anion Gap 6, BUN 27 H, Creatinine 1.40 H, Est GFR (MDRD) Af Amer 65, Est GFR (MDRD) Non-Af 54 L, BUN/Creatinine Ratio 19.3, Glucose 108 H, Calcium 7.7 L Rhythm: EKG: ECHO: Stress Test: Cardiac Cath: PCI: CT Surgery: Holter monitor: EPS: PPM: CXR: Chest CT Scan: Assessment & Plan Assessment/Plan (1) Cardiopulmonary arrest with successful resuscitation: (2) HASMUKH (acute kidney injury): (3) Chronic obstructive pulmonary disease: (4) Non-healing ulcer of multiple sites, limited to breakdown of skin: (5) Right lower lobe pulmonary infiltrate: (6) Metabolic encephalopathy: PLAN: 66-year-old patient who was successfully resuscitated, patient with history of her GBS with subsequent significant debility with chronic excoriation and wounds involving the perineum. Patient had a history of PSVT Patient has metabolic encephalopathy with anoxic brain injury and myoclonic episodes Remains on ventilator As well patient had the acute kidney injury with electrolyte abnormality and hyperkalemia which has been corrected as better protocol Has sacral decubitus ulcer Cardiovascular care and recommendations; Patient remains in the intensive care unit intubated and on ventilator. 1. The phototypesetting equipment monitor showed sinus tachycardia and patient has been on IV Lopressor. 2. Echocardiographic evaluation showed ejection fraction in the range of 45%. From cardiac standpoint we will continue supportive care 3. We will continue to monitor and follow-up clinically
[2021-04-25 16:14] LABS: Vancomycin, Random Level 18.5 ug/mL (0.0-15.0)
[2021-04-25 17:26] LABS: Bedside Glucose 129 mg/dL (70-110)
--- NOTE | 2021-04-25 19:02 | PCM.RX.CS ---
Consult Pharmacy has been consulted to manage selected antiobiotic: Vancomycin Type of Consult: Follow-up Suspected Infection: Pneumonia Labs: Sodium 147 mmol/L (136-145) H 04/25/21 04:00 Potassium 2.9 mmol/L (3.5-5.1) L 04/25/21 04:00 Chloride 113 mmol/L (98-107) H 04/25/21 04:00 Carbon Dioxide 28.0 mmol/L (21.0-32.0) 04/25/21 04:00 Anion Gap 6 (5-15) 04/25/21 04:00 BUN 27 mg/dL (7-18) H 04/25/21 04:00 Creatinine 1.40 mg/dL (0.70-1.30) H 04/25/21 04:00 Est GFR (MDRD) Af Amer 65 mL/min (>60) 04/25/21 04:00 Est GFR (MDRD) Non-Af 54 mL/min (>60) L 04/25/21 04:00 BUN/Creatinine Ratio 19.3 RATIO (10-20) 04/25/21 04:00 Glucose 108 mg/dL (74-106) H 04/25/21 04:00 Vancomycin Trough 24.2 ug/mL (5.0-15.0) H 04/24/21 03:05 Random Vancomycin 18.5 ug/mL (0.0-15.0) H 04/25/21 15:40 Microbiology: Microbiology 04/20/21 21:29 Blood Culture (Wb) - Venous Bacteria Detection (PCR) - Final Coag Negative Staph 04/20/21 21:29 Blood Culture (Wb) - Venous Blood Culture - Final Acinetobacter baumannii Meth. resistant Staph. aureus Vancomycin Resist. E. faecalis Staphylococcus epidermidis 04/21/21 00:54 Sputum, Induced/Lukens Gram Stain - Final 04/21/21 00:54 Sputum, Induced/Lukens Respiratory Culture - Final Pseudomonas aeroginosa Meth. resistant Staph. aureus Presumptive C albicans 04/20/21 20:18 Blood Culture (Wb) - Left Wrist Blood Culture - Preliminary No growth in 48 hours. 04/20/21 22:46 Sputum, Tracheal Aspirate Gram Stain - Final 04/20/21 22:46 Sputum, Tracheal Aspirate Respiratory Culture - Final Meth. resistant Staph. aureus Pseudomonas aeroginosa 04/20/21 14:10 Urine Catheter - Prieto Legionella Antigen - Final 04/20/21 14:10 Urine Catheter - Prieto Streptococcus pneumoniae Antigen (M - Final Goal Trough: 15-20 mcg/mL Pharmacy Plan for Drug Dosing: VANCOMYCIN LEVEL RECEIVED Current Vancomycin Dose: on hold due to elevated trough Number of Doses Received: last dose was 1500mg q24 (last dose received was 1/2 bag on 04/24/21 at 0300) Vancomycin Level: random level resulted at 18.5 Hours Since Last Dose: 36.5 Renal Function: SrCr 1.40 Renal Function Trend: SrCr improving Lab/Micro: Vancomycin Plan/Comments: recommend restarting Vancomycin at a dose of 1000mg q24h. trough before the 3rd dose Pending Level: 04/27/21 at 1830 Pharmacy Service will continue to monitor and adjust dosing as required. Follow-Up Labs: Trough Vancomycin - 04/27/21 at 1830
[2021-04-25] MEDS: Vancomycin IV 1,000 MG/200 ML BAG 200 MG IV (19:39)
[2021-04-25] MEDS: Latanoprost 0.005% 1 Bottle 1 DRP OPHTHALMIC (22:05)
[2021-04-26] VITALS (52 sets, daily range): BP systolic 55–186; BP diastolic 33–132; PULSE 71–172; RESP 16–22; TEMP 37.1–38; O2SAT 97–100
[2021-04-26] MEDS: Metoprolol Tartrate 5 MG/5 ML Vial IV ×3 (00:33→11:01)
[2021-04-26] MEDS: CHLORHEXIDINE GLUC 2% CLOTH 1 EACH TOWELETTE TOPICAL (03:08)
[2021-04-26 04:53] LABS: Absolute Neutrophil Count 11.2 X10^3/uL (2.0-7.7); Basophil# 0.02 X10^3/uL; Basophil% 0.1 % (0-1); Eosinophil# 0.76 X10^3/uL; Eosinophils% 5.2 % (0-5); Hematocrit 31.2 % (40-54); Lymphocyte % 10.2 % (19-41); Mean Corp Hgb Conc 32.1 g/dL (32-36); Mean Corpuscular Hgb 25.7 pg (27.0-32.0); Mean Corpuscular Volume 80.2 fL (80-94); Monocyte# 1.18 X10^3/uL; NRBC Flagged by Analyzer 0.1 % (0-5); Neutrophil # 11.17 X10^3/uL (2.7-7.7); Neutrophil % 75.9 % (47-70); Platelet Count 121 K/mm3 (150-450); RBC Distribution Width CV 18.8 % (11.6-14.6); RBC Distribution Width SD 53.2 fl (35.1-43.9); Red Blood Count 3.89 M/mm3 (4.6-6.2); White Blood Count 14.7 K/mm3 (4.4-11.0)
[2021-04-26 05:06] LABS: Anion Gap 7 (5-15); BUN 22 mg/dL (7-18); BUN/Creat Ratio 15.4 RATIO (10-20); Calcium,Total 7.4 mg/dL (8.5-10.1); Chloride 110 mmol/L (98-107); Creatinine, Serum 1.43 mg/dL (0.70-1.30); EST Glomerular Filtration Rate 52 mL/min (>60); Est Glom Filt Rate - Afr Amer 63 mL/min (>60); Estimated Creatinine Clearance 45.24 ml/min; Glucose 135 mg/dL (74-106); Sodium Level 144 mmol/L (136-145)
[2021-04-26 05:26] LABS: Bedside Glucose 143 mg/dL (70-110)
[2021-04-26] MEDS: Potassium Chloride 20mEq/100mL 20 MEQ/100 ML IV.SOLN. 100 MEQ IV BOLUS ×2 (06:43→07:58)
[2021-04-26] MEDS: Potassium Chloride Oral Soln 20 MEQ/15 ML UDC 40 MEQ GT ×2 (06:49→13:19)
--- NOTE | 2021-04-26 07:02 | PN.CC_ITS ---
Assessment & Plan Assessment/Plan (1) Cardiopulmonary arrest with successful resuscitation: PLAN: RECOMMENDATIONS: 1. Continue current supportive measures including invasive mechanical candido tilatory support. 2. Wean FiO2/PEEP for saturations greater than 90%. 3. Fentanyl for pain control. 4. Continue antimicrobials as ordered. 5. Continue D5W and potassium supplementation. Empirically supplement magnesium 6. Continue appropriate ICU prophylaxis. 7. Ongoing goals of care discussion with the patient's family. IMPRESSIONS: 1. Acute on chronic respiratory failure status post out of hospital cardiac arrest The patient presented to the ED on April 20 following an out of hospital PEA cardiac arrest with successful ROSC. Approximately 20 minutes elapsed from onset of arrest to successful return of spontaneous circulation. As a consequence, it does appear that the patient has sustained some form of anoxic brain injury. In addition, the patient does have known obstructive lung disease and likely has an underlying pulmonary infectious etiology with staph aureus and Pseudomonas isolated from sputum. Accordingly, the patient will be continued on antimicrobials to complete 10 days. He will also be continued on assist control mode of mechanical ventilation with FiO2 and PEEP weaned to maintain oxygen saturations at or above 90%. Patient remains intubated secondary to mental status and full CODE STATUS 2. Encephalopathy, likely secondary to anoxic brain injury Likely secondary to anoxia sustained as a consequence of his cardiac arrest. We will continue current supportive measures as noted above. Findings noted on EEG were consistent with anoxic brain injury. The patient has been neurologically unchanged for multiple consecutive days. Anticipate little to no improvement with ongoing support. Patient does appear to grimace with wound care 3. Acute on chronic kidney disease/acute liver injury Improving. Likely secondary to global hypoperfusion in the setting of cardiac arrest. Anticipate improvement in organ function with stabilization of hemodynamics. Continue to monitor urine output. No current indication for renal replacement therapy. 4. Hypernatremia/hypokalemia Continue D5W with potassium supplementation as ordered. Will empirically supplement magnesium 5. History of chronic wounds Continue local wound care. 6. History of SVT/chronic pain syndrome/morbid obesity/heart failure with preserved ejection fraction/ADELAIDE/COPD Complicates care, management, recovery and prognosis. Continue supportive measures as noted above. Addendum 2:20 PM: Spoke with all the family at the bedside. Updated on his current situation. After review of his current situation and lack of neurologic improvement, the decision was made to make patient comfortable. Family did request spiritual services, but anticipates comfort measures later today. Orders have been placed accordingly. TIME: 60 minutes of critical care time, independent of procedures, was spent addressing the patient's acute on chronic respiratory failure status post cardiac arrest, anoxic encephalopathy, acute on chronic kidney disease, acute liver injury, review of all data and collaboration with the care team. Subjective Subjective Patient with multiple intermittent episodes of SVT overnight. Patient also has had significant urine output. Diarrhea has improved. Patient continues to grimace with any wound care. Patient was started on fentanyl yesterday, which nursing feels is improving his condition. Neurologic status has been relatively unchanged. Patient does require Levophed when in SVT secondary to hypotension. Objective Data Objective Data Vital Signs: Vital Signs Temp Pulse Resp BP Pulse Ox 37.6 C H 89 16 131/95 H 97 04/26/21 03:00 04/26/21 06:31 04/26/21 03:00 04/26/21 03:00 04/26/21 03:00 Oxygen Flow Rate (L/min) 100 Oxygen Delivery Method Mechanical Ventilator Weight: 115.8 kg Body Mass Index (BMI) 41.8 Intake & Output: Intake and Output for Last 24 Hours 04/24/21 04/25/21 04/26/21 23:59 23:59 23:59 Intake Total 2033.33 / 2063.33 2997.77 / 3034.65 1141.16 / 1141.16 Output Total 3170 / 3420 3075 / 3325 1100 / 1100 Balance -1136.67 / -1356.67 -77.23 / -290.35 41.16 / 41.16 Medical Nutrition Assessment Dietitian: Malnutrition Criteria Met Start: 04/25/21 10:05 Freq: Status: Active Protocol: Document 04/25/21 10:05 (Rec: 04/25/21 10:05 [id number]) Nutrition Malnutrition Evidence of Malnutrition Exists Yes Malnutrition (severe): Acute Illness/Injury Evidenced By Suboptimal Energy Intake ( Severe),Weight Loss (Severe) Intake Problem Inadequate Oral Intake Etiology r/t resp. failure/mechanical intubation Signs/Symptoms as evidenced by inability to consume sufficient nutrition via PO diet, NPO x 4 days Status Active Problem Clinical Problem Acute Disease or Injury Related Malnutrition Etiology severe, acute malnutrition r/t inadequate energy intake d/t resp. failure Signs/Symptoms as evidenced by unintentional wt loss of 5.5kg/4.5% x 5 days ; no PO intake x 5 days Status Active Problem Recommendation Dietitian Recommendations/Changes Strongly recommend enteral nutrition support if family agreeable to aggressive care- Vital AF 1.2 via OGT at goal rate of 55mL/hour w/ 100mL H2O flush every 4 hours to provide 1584 calories, 99 g protein, and 1670mL fluid/day. Would start at 25mL/hour and increase by 10mL/hour every 8- 12 hours as tolerated until goal rate is achieved. Recommend 1 packet Robin mixed in 8oz water BID for wounds. Lab / Micro Data Result Diagrams: 04/26/21 04:45 04/26/21 11:35 Labs: Laboratory Results - last 24 hr 04/25/21 10:48: POC Glucose 97 04/25/21 15:40: Random Vancomycin 18.5 H 04/25/21 17:22: POC Glucose 129 H 04/26/21 00:10: POC Glucose 143 H 04/26/21 04:45: WBC 14.7 H, RBC 3.89 L, Hgb 10.0 L, Hct 31.2 L, MCV 80.2, MCH 25.7 L, MCHC 32.1, RDW Std Deviation 53.2 H, RDW Coeff of Johanna 18.8 H, Plt Count 121 L, MPV 10.0, Immature Gran % (Auto) 0.600, Neut % (Auto) 75.9 H, Lymph % (Auto) 10.2 L, Stokes % (Auto) 8.0, Eos % (Auto) 5.2 H, Baso % (Auto) 0.1, Absolute Neuts (auto) 11.2 H, Absolute Lymphs (auto) 1.50, Nucleated RBC % 0.1 04/26/21 04:45: Sodium 144, Potassium 3.0 L, Chloride 110 H, Carbon Dioxide 27.0, Anion Gap 7, BUN 22 H, Creatinine 1.43 H, Estim Creat Clear Calc 45.24, Est GFR (MDRD) Af Amer 63, Est GFR (MDRD) Non-Af 52 L, BUN/Creatinine Ratio 15.4, Glucose 135 H, Calcium 7.4 L Micro: Microbiology 04/20/21 21:29 Blood Culture (Wb) - Venous Bacteria Detection (PCR) - Final Coag Negative Staph 04/20/21 21:29 Blood Culture (Wb) - Venous Blood Culture - Final Acinetobacter baumannii Meth. resistant Staph. aureus Vancomycin Resist. E. faecalis Staphylococcus epidermidis 04/21/21 00:54 Sputum, Induced/Lukens Gram Stain - Final 04/21/21 00:54 Sputum, Induced/Lukens Respiratory Culture - Final Pseudomonas aeroginosa Meth. resistant Staph. aureus Presumptive C albicans 04/20/21 20:18 Blood Culture (Wb) - Left Wrist Blood Culture - Preliminary No growth in 48 hours. 04/20/21 22:46 Sputum, Tracheal Aspirate Gram Stain - Final 04/20/21 22:46 Sputum, Tracheal Aspirate Respiratory Culture - Final Meth. resistant Staph. aureus Pseudomonas aeroginosa 04/20/21 14:10 Urine Catheter - Prieto Legionella Antigen - Final 04/20/21 14:10 Urine Catheter - Prieto Streptococcus pneumoniae Antigen (M - Final Physical Exam Const Constitutional Narrative: The patient remains comatose on the ventilator. General Appearance: intubated and patient mechanically ventilated Exam Limitations: altered mental status Nutritional Appearance: morbidly obese HEENT normocephalic and head/scalp atraumatic Mouth: endotracheal tube in place and OG tube in place Eyes Eyes Narrative: Sluggish pupillary response bilaterally. Neck supple General: trachea midline and CVC in place Resp Resp Narrative: Breathing at set rate on ventilator. Auscultation: diminished lung sounds; Negative for rales, rhonchi or wheezes Cardio S1 normal heart sound and S2 normal heart sound Cardio Narrative: Multiple episodes of SVT overnight per telemetry Rate: regular rate GI normal to inspection, nondistended, normoactive bowel sounds Extremity no clubbing, cyanosis or edema Skin Wound Narrative: Multiple wounds scattered over lower extremities and perineum at various stages of healing. Neuro Neuro Narrative: Comatose on ventilator. Unchanged from previous. Charges/Coding Procedures Hospitalists Procedures: 10451 Critial Care 1st Hr
[2021-04-26] MEDS: Ipratropium/Albuterol Sulfate 3 ML AMPUL.NEB INHALATION ×2 (07:20→12:10)
[2021-04-26] MEDS: BRIMONIDINE 0.2% 5ML BOTTLE 1 DRP OPHTHALMIC (09:35)
[2021-04-26] MEDS: Chlorhexidine 15 ML PO (09:35)
[2021-04-26] MEDS: Nystatin Powder 15gm Bottle 1 APPLIC TOPICAL (09:36)
[2021-04-26] MEDS: Dorzolamide HCL/Timolol 10 ml Bottle 1 DRP OPHTHALMIC (09:36)
--- NOTE | 2021-04-26 09:37 | CASEMGMT ---
Addendum entered by Vero Reed 04/26/21 14:34: Social Work SW spoke w/family briefly, offered support. Daughter asked if we can call the lozenge maker helper from [place]. SW asked Photogeologist Ray, he will reach out. SW let family know. MARIANNE Avila Original Note: Social Work SW participated in ICU rounds this morning. SW called , spoke w/son Jonathan. He states they will be here around 1-1:30pm today. DEVIN let Jonathan know that Dr. Daugherty would like to speak to family at that time, Jonathan states understanding. SW offered support to son. MARIANNE Avila
--- NOTE | 2021-04-26 10:26 | PCM.PN.HOSP ---
Subjective Subjective Remains intubated, but he is off sedation and unresponsive. He does not grimace to pain but otherwise does not respond Objective Data Objective Data Vital Signs: Vital Signs Temp Pulse Resp BP Pulse Ox 99.2 F H 80 16 122/89 H 100 04/26/21 09:00 04/26/21 09:00 04/26/21 09:00 04/26/21 09:00 04/26/21 09:00 Oxygen Flow Rate (L/min) 100 Oxygen Delivery Method Mechanical Ventilator Weight: 255 lb 4.725 oz Body Mass Index (BMI) 41.8 Intake & Output: Intake and Output for Last 24 Hours 04/25/21 04/26/21 04/27/21 03:59 03:59 03:59 Intake Total 2063.33 / 2093.33 4039.60 / 4047.73 1071.13 / 1071.13 Output Total 2870 / 3195 3075 / 3350 930 / 930 Balance -806.67 / -1101.67 964.60 / 697.73 141.13 / 141.13 Medical Nutrition Assessment Dietitian: Malnutrition Criteria Met Start: 04/25/21 10:05 Freq: Status: Active Protocol: Document 04/25/21 10:05 (Rec: 04/25/21 10:05 [id number]) Nutrition Malnutrition Evidence of Malnutrition Exists Yes Malnutrition (severe): Acute Illness/Injury Evidenced By Suboptimal Energy Intake ( Severe),Weight Loss (Severe) Intake Problem Inadequate Oral Intake Etiology r/t resp. failure/mechanical intubation Signs/Symptoms as evidenced by inability to consume sufficient nutrition via PO diet, NPO x 4 days Status Active Problem Clinical Problem Acute Disease or Injury Related Malnutrition Etiology severe, acute malnutrition r/t inadequate energy intake d/t resp. failure Signs/Symptoms as evidenced by unintentional wt loss of 5.5kg/4.5% x 5 days ; no PO intake x 5 days Status Active Problem Recommendation Dietitian Recommendations/Changes Strongly recommend enteral nutrition support if family agreeable to aggressive care- Vital AF 1.2 via OGT at goal rate of 55mL/hour w/ 100mL H2O flush every 4 hours to provide 1584 calories, 99 g protein, and 1670mL fluid/day. Would start at 25mL/hour and increase by 10mL/hour every 8- 12 hours as tolerated until goal rate is achieved. Recommend 1 packet Robin mixed in 8oz water BID for wounds. Lab / Micro Data Result Diagrams: 04/26/21 04:45 04/26/21 04:45 Labs: Laboratory Results - last 24 hr 04/25/21 10:48: POC Glucose 97 04/25/21 15:40: Random Vancomycin 18.5 H 04/25/21 17:22: POC Glucose 129 H 04/26/21 00:10: POC Glucose 143 H 04/26/21 04:45: WBC 14.7 H, RBC 3.89 L, Hgb 10.0 L, Hct 31.2 L, MCV 80.2, MCH 25.7 L, MCHC 32.1, RDW Std Deviation 53.2 H, RDW Coeff of Johanna 18.8 H, Plt Count 121 L, MPV 10.0, Immature Gran % (Auto) 0.600, Neut % (Auto) 75.9 H, Lymph % (Auto) 10.2 L, [place] % (Auto) 8.0, Eos % (Auto) 5.2 H, Baso % (Auto) 0.1, Absolute Neuts (auto) 11.2 H, Absolute Lymphs (auto) 1.50, Nucleated RBC % 0.1 04/26/21 04:45: Sodium 144, Potassium 3.0 L, Chloride 110 H, Carbon Dioxide 27.0, Anion Gap 7, BUN 22 H, Creatinine 1.43 H, Estim Creat Clear Calc 45.24, Est GFR (MDRD) Af Amer 63, Est GFR (MDRD) Non-Af 52 L, BUN/Creatinine Ratio 15.4, Glucose 135 H, Calcium 7.4 L Micro: Microbiology 04/20/21 20:18 Blood Culture (Wb) - Left Wrist Blood Culture - Final No growth in 5 days. 04/20/21 21:29 Blood Culture (Wb) - Venous Bacteria Detection (PCR) - Final Coag Negative Staph 04/20/21 21:29 Blood Culture (Wb) - Venous Blood Culture - Final Acinetobacter baumannii Meth. resistant Staph. aureus Vancomycin Resist. E. faecalis Staphylococcus epidermidis 04/21/21 00:54 Sputum, Induced/Lukens Gram Stain - Final 04/21/21 00:54 Sputum, Induced/Lukens Respiratory Culture - Final Pseudomonas aeroginosa Meth. resistant Staph. aureus Presumptive C albicans 04/20/21 22:46 Sputum, Tracheal Aspirate Gram Stain - Final 04/20/21 22:46 Sputum, Tracheal Aspirate Respiratory Culture - Final Meth. resistant Staph. aureus Pseudomonas aeroginosa 04/20/21 14:10 Urine Catheter - Prieto Legionella Antigen - Final 04/20/21 14:10 Urine Catheter - Preito Streptococcus pneumoniae Antigen (M - Final Physical Exam Const General Appearance: intubated and patient mechanically ventilated Orientation / Consciousness: comatose HEENT normocephalic and moist oral mucous membranes Eyes PERRL Eyes Narrative: Sluggish pupillary response Neck supple and no JVD Resp normal respiratory effort, no retractions and no use of accessory muscles Auscultation: diminished lung sounds; Negative for crackles, rales, rhonchi or wheezes Cardio regular rate, regular rhythm, S1 normal heart sound, S2 normal heart sound and no murmurs GI soft to palpation, non-tender and non-distended; Negative for hepatosplenomegaly Extremity no clubbing, cyanosis or edema Skin Skin Narrative: Multiple wounds over his lower extremities Neuro Neuro Narrative: Intubated, not on sedation, comatose Sensorium / Orientation: sedated on vent Psych Appearance: intubated Assessment & Plan Assessment/Plan (1) Cardiopulmonary arrest with successful resuscitation: PLAN: 1. Acute cardiopulmonary arrest with paroxysmal SVT ?Patient was successfully resuscitated using ACLS protocol with ROSC S. Subsequently left on the vent. Etiology of patient acute cardiopulmonary arrest not clear at this point. Consult was placed to cardiology. ?We will have discussions with the family on advance care planning ?Whenever he does go into SVT he does need Levophed support for hypotension 2. Acute hypoxic respiratory failure ?Secondary to above patient had to be intubated and admitted to the intensive care unit with consultation placed to history card clerk. ?04/23/2021; patient remains on the vent by family to decide after 72 hours about continuation of care ?04/24/2021; No change in clinical condition. Family meeting plan for this a.m. ?04/26/2021: No change, will need to have a family meeting 3. Suspected pneumonia ?Chest x-ray obtained demonstrated patchy bibasilar opacities. Patient was started on Zosyn and vancomycin 4. Metabolic encephalopathy ?Patient was exhibiting signs of anoxic brain injury with myoclonic episodes. Underwent EEG -04/22/2021;Patient remains on the vent without sedation. EEG obtained the day prior consistent with anoxic brain injury ?04/26/2021: Family meeting planned, still remains unresponsive despite no sedation 5. Acute kidney injury on CKD 3B ?Superimposed on chronic kidney disease stage III, monitoring BMP -04/25/2021; kidney function remains fairly stable 6. Sacral decubitus ulcer With significant perineal excoriation. Consult placed wound care nurse 7. Right lower extremity skin ulceration ?Appears to be healing 8. 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 Essential hypertension/class III obesity ?Antihypertensives on hold ?BMI 41.8 DVT: Heparin Charges/Coding Visit Charges Inpatient E&M: 49800 Subs Hosp L2
[2021-04-26] MEDS: 0.9% Saline Lock 10 ML Syringe IV ×4 (11:01→17:09)
[2021-04-26 11:10] LABS: Bedside Glucose 129 mg/dL (70-110)
[2021-04-26 11:15] LABS: Bedside Glucose 134 mg/dL (70-110)
[2021-04-26 12:21] LABS: Potassium 3.7 mmol/L (3.5-5.1)
--- NOTE | 2021-04-26 14:58 | CHAPLAIN ---
Type of Pastoral Visit ___ Initial Visit ___ Follow-up Visit ___ On-call Visit ___ General Patient Visit ___ Spiritual Assessment _x__ Family Conference ___ Bereavement ___ Rapid Response ___ Code Blue ___ Other (describe below) Pastoral Care Referral From ___ Patient ___ Family _x__ Nurse _x__ Physician ___ Medical Transcriber ___ Industrial Methods Consultant ___ Other (describe below) Sacrament/Intervention ___ Active listening ___ Anointing ___ Zoroastrianism ___ Bereavement ___ Communion ___ Monique exploration ___ ___ Life review _x__ Prayer ___ Reconciliation ___ Sacrament of Sick _x__ Supportive presence ___ Wedding ___ Other (describe below) Pastoral Comments family has met with and decided to extubate patient today; gave offer of presence; family gathered at bedside with very little expression of feelings and remained mostly quiet; SW stated that family would like power shovel engineer to give Anointing; this salvage worker called power shovel engineer and he came shortly thereafter; was present with the Anointing; family will give the agreement for extubation when they are ready
--- NOTE | 2021-04-26 15:50 | NURSING ---
Family remains at bedside. Support given. Planning to terminally extubate when family is ready.
[2021-04-26] MEDS: LORazepam 2 MG/ML Syringe IV ×3 (16:10→17:09)
[2021-04-26] MEDS: Morphine 2 MG/ML Syringe IV ×3 (16:10→17:53)
--- NOTE | 2021-04-26 16:48 | CPS ---
pt terminally extubated at 1614
--- NOTE | 2021-04-26 16:55 | PN.CARD_ITS ---
Subjective Subjective The patient was evaluated earlier this a.m. He remains mechanically intubated/ventilated. He has what appears to be nonpurposeful movements. Objective Data Vital Signs: Vital Signs Temp Pulse Resp BP Pulse Ox 98.9 F 167 H 16 88/67 L 98 04/26/21 14:00 04/26/21 14:30 04/26/21 14:00 04/26/21 14:30 04/26/21 14:00 Oxygen Flow Rate (L/min) 100 Oxygen Delivery Method Room Air Weight: 255 lb 4.725 oz Body Mass Index (BMI) 41.8 Intake & Output: Intake and Output for Last 24 Hours 04/24/21 04/25/21 04/26/21 23:59 23:59 23:59 Intake Total 2033.33 / 2063.33 2997.77 / 3034.65 3033.50 / 3033.50 Output Total 3170 / 3420 3075 / 3325 1930 / 1930 Balance -1136.67 / -1356.67 -77.23 / -290.35 1103.50 / 1103.50 Lab / Micro Data Result Diagrams: 04/26/21 04:45 04/26/21 11:35 Labs: Laboratory Results - last 24 hr 04/25/21 17:22: POC Glucose 129 H 04/26/21 00:10: POC Glucose 143 H 04/26/21 04:45: WBC 14.7 H, RBC 3.89 L, Hgb 10.0 L, Hct 31.2 L, MCV 80.2, MCH 25.7 L, MCHC 32.1, RDW Std Deviation 53.2 H, RDW Coeff of Johanna 18.8 H, Plt Count 121 L, MPV 10.0, Immature Gran % (Auto) 0.600, Neut % (Auto) 75.9 H, Lymph % (Auto) 10.2 L, [place] % (Auto) 8.0, Eos % (Auto) 5.2 H, Baso % (Auto) 0.1, Absolute Neuts (auto) 11.2 H, Absolute Lymphs (auto) 1.50, Nucleated RBC % 0.1 04/26/21 04:45: Sodium 144, Potassium 3.0 L, Chloride 110 H, Carbon Dioxide 27.0, Anion Gap 7, BUN 22 H, Creatinine 1.43 H, Estim Creat Clear Calc 45.24, Est GFR (MDRD) Af Amer 63, Est GFR (MDRD) Non-Af 52 L, BUN/Creatinine Ratio 15.4, Glucose 135 H, Calcium 7.4 L 04/26/21 06:29: POC Glucose 129 H 04/26/21 11:07: POC Glucose 134 H 04/26/21 11:35: Potassium 3.7 Micro: Microbiology 04/20/21 20:18 Blood Culture (Wb) - Left Wrist Blood Culture - Final No growth in 5 days. Cardiology Labs/Tests 04/26/21 04:45: WBC 14.7 H, RBC 3.89 L, Hgb 10.0 L, Hct 31.2 L, MCV 80.2, MCH 25.7 L, MCHC 32.1, Plt Count 121 L, MPV 10.0, Immature Gran % (Auto) 0.600, Neut % (Auto) 75.9 H, Lymph % (Auto) 10.2 L, [place] % (Auto) 8.0, Eos % (Auto) 5.2 H, Baso % (Auto) 0.1, Absolute Neuts (auto) 11.2 H, Nucleated RBC % 0.1 04/26/21 04:45: Sodium 144, Potassium 3.0 L, Chloride 110 H, Carbon Dioxide 27.0, Anion Gap 7, BUN 22 H, Creatinine 1.43 H, Est GFR (MDRD) Af Amer 63, Est GFR (MDRD) Non-Af 52 L, BUN/Creatinine Ratio 15.4, Glucose 135 H, Calcium 7.4 L 04/26/21 11:35: Potassium 3.7 Rhythm: Sinus rhythm/sinus tachycardia/PSVT Physical Exam Resp Resp Narrative: Disseminated upper airway sounds Cardio regular rate, regular rhythm, S1 normal heart sound and S2 normal heart sound GI normal to inspection, nondistended, normoactive bowel sounds Extremity no pedal edema Assessment & Plan Assessment/Plan (1) Cardiopulmonary arrest with successful resuscitation: PLAN: At the present time he remains mechanically intubated/ventilated. He has been receiving supportive care. His family members have been discussing future evaluation and care options. (2) SVT (supraventricular tachycardia): PLAN: The patient continues with intermittent episodes of PSVT. It has been challenging to treat this medically with agents such as beta- blockers or calcium channel antagonist secondary to concerns of hypotension. It appears that when he is having PSVT he has required IV vasopressor support. (3) Hypotension: PLAN: Again the patient does have episodes of hypotension. He has required intermittent IV vasopressor support. Addt'l Comments At the present time the patient will continue supportive therapy as best as possible. His family is discussing additional evaluation care options. This note was generated using a voice recognition system and there may be incorrect words, spelling or punctuation that were not noted when reviewing the office note prior to saving. Procedure Criteria Type of Procedure Procedure Type: Elective Elective Risks - COVID COVID Risk Discussion: The surgeon/proceduralist and patient have discussed in detail the risk of exposure to and/or potential harm posed by the COVID-19 virus with having a surgery/procedure at this time versus the risk of delaying the surgery/procedure. It is not possible to know either the risk of delaying the surgery or procedure or chance of getting an infection with perfect accuracy, but a joint decision was made between the patient and the surgeon/proceduralist to proceed at this time with the scheduled surgery/procedure as indicated on the consent form.
--- NOTE | 2021-04-26 18:50 | NURSING ---
Terminally extubated at 1614, at 1830 with family at bedside. Support given to family.
--- NOTE | 2021-04-27 13:13 | PCM.DEATH ---
Preliminary Cause of Preliminary Cause of Preliminary Cause of : Acute on chronic respiratory failure status post cardiac arrest Date of Admission: 04/20/21 Date of : 04/26/21 Principle Diagnosis Problem List: Active and Suspected Problems (Updated 04/26/21 @ 16:[address] Jesse Kendrick MD) Hypotension (Acute) Metabolic encephalopathy (Acute) Cardiopulmonary arrest with successful resuscitation (Acute) Right lower lobe pulmonary infiltrate (Acute) Acute respiratory failure with hypoxia and hypercapnia (Acute) Acute hypotension (Acute) Acidosis, lactic (Acute) Acute hyperkalemia (Acute) HASMUKH (acute kidney injury) (Acute) Shock (Acute) Hospital Course Mr. Burnette is a 66-year-old male with a history of chronic COPD who presented to the hospital on 04/20/2021 after having episodes throughout the day of a fluctuating heart rate as well is increasing oxygen needs. He had an unresponsive episode which prompted his to call EMS. His unresponsiveness may have been for 10 to 15 minutes prior to arrival of the EMS at which point he was found to have no pulse and was not breathing he was given a dose of Narcan without any improvement. EMS performed CPR and had a return of spontaneous circulation on the way to the ER however once in the ER he did code again and had to be resuscitated for a second time. He was intubated and transferred to the ICU at that time, cardiology had been consulted secondary to the out of hospital cardiac arrest and echo was performed which showed an EF of around 45% as well as pulmonary hypertension. He remained intubated throughout his stay however sedation was withdrawn and he did not wake up, he did have some grimacing with pain but otherwise he did not have any purposeful movements. On 04/21/2021 he did have an EEG which demonstrated widespread encephalopathy with very poor cortical reactivity this was read as being consistent with anoxic brain injury. Throughout his stay he remained unresponsive despite having no sedation on board, he did require intermittent pressor support whenever his heart rate would climb secondary to SVT. The tyre finisher and examiner did have a family discussion and they elected to withdraw care on 04/26/2021. He on 04/26/2021 at 1830. Visit Charges Inpatient E&M: [id number] Disch Hosp
== END 2021-04-26 21:27 | DRG 296 ==
LOC: ED 22:23 → ICU 22:43
PROVIDERS: Internal Medicine; Internal Medicine Critical Care Medicine; Admitting Provider Family Medicine; Emergency Provider Emergency Medicine; PCP Internal Medicine; Visit Provider Family Medicine
DX: I46.9 Cardiac arrest, cause unspecified (principal); J96.21 Acute and chronic respiratory failure with hypoxia; J18.9 Pneumonia, unspecified organism; G93.41 Metabolic encephalopathy; L89.153 Pressure ulcer of sacral region, stage 3; J96.22 Acute and chronic respiratory failure with hypercapnia; R57.9 Shock, unspecified; G61.0 Guillain-Barre syndrome; E87.0 Hyperosmolality and hypernatremia; I13.0 Hypertensive heart and chronic kidney disease with heart failure and stage 1 through stage 4 chronic kidney disease, or unspecified chronic kidney disease; I50.32 Chronic diastolic (congestive) heart failure; N17.9 Acute kidney failure, unspecified; Z68.41 Body mass index [BMI] 40.0-44.9, adult; L97.911 Non-pressure chronic ulcer of unspecified part of right lower leg limited to breakdown of skin; L97.921 Non-pressure chronic ulcer of unspecified part of left lower leg limited to breakdown of skin; G93.1 Anoxic brain damage, not elsewhere classified; E87.2 Acidosis; I47.2 Ventricular tachycardia; I47.1 Supraventricular tachycardia; E11.22 Type 2 diabetes mellitus with diabetic chronic kidney disease; J44.9 Chronic obstructive pulmonary disease, unspecified; E66.01 Morbid (severe) obesity due to excess calories; I71.2 Thoracic aortic aneurysm, without rupture; E11.621 Type 2 diabetes mellitus with foot ulcer; E11.42 Type 2 diabetes mellitus with diabetic polyneuropathy; L97.511 Non-pressure chronic ulcer of other part of right foot limited to breakdown of skin; I27.20 Pulmonary hypertension, unspecified; N18.32 Chronic kidney disease, stage 3b; D50.9 Iron deficiency anemia, unspecified; E78.5 Hyperlipidemia, unspecified; G47.33 Obstructive sleep apnea (adult) (pediatric); K21.9 Gastro-esophageal reflux disease without esophagitis; M48.061 Spinal stenosis, lumbar region without neurogenic claudication; E87.5 Hyperkalemia; E87.6 Hypokalemia; B96.5 Pseudomonas (aeruginosa) (mallei) (pseudomallei) as the cause of diseases classified elsewhere; B95.62 Methicillin resistant Staphylococcus aureus infection as the cause of diseases classified elsewhere; N40.0 Benign prostatic hyperplasia without lower urinary tract symptoms; N50.89 Other specified disorders of the male genital organs; G89.4 Chronic pain syndrome; Z87.891 Personal history of nicotine dependence; Z74.01 Bed confinement status; Z79.84 Long term (current) use of oral hypoglycemic drugs; Z86.711 Personal history of pulmonary embolism; Z86.718 Personal history of other venous thrombosis and embolism; Z79.899 Other long term (current) drug therapy; Z79.51 Long term (current) use of inhaled steroids
CPT/HCPCS: 31500; 31720; 36600; 51702; 70450; 71045; 80048; 80053; 80202; 82550; 82803; 82962; 83605; 83880; 84132; 84145; 84478; 84484; 85025; 85610; 85730; 87040; 87070; 87077; 87149; 87184; 87186; 87205; 87449; 87641; 92950; 93005; 93306; 94002; 94003; 94640; 95819; 97802; 99285; J2997; J7030; J7040; J7050; Q9957; A4216; C8929; J0696; J3010